=== PATIENT | male | born 1975 | race Caucasian/White ===

== ENCOUNTER 2016-05-24 02:10 | Inpatient (IN) | payer MEDICAID ==
[~2016-05-24] VITALS: Ht 167.6 cm; Wt 55.9 kg
[2016-05-24] VITALS (9 sets, daily range): BP systolic 90–117; BP diastolic 50–76; PULSE 80–110; RESP 16–21; TEMP 96.3–98.7; O2SAT 92–98
--- NOTE | 2016-05-24 02:41 | PD ---
HPI Chief Complaint: Back/ Neck Pain or Injury Time Seen by Provider: 02:20 Travel History International Travel<30 days: No Contact w/Intl Traveler<30days: No History of Present Illness HPI Patient is a 41-year-old male who was transferred from [facility] for neurosurgical evaluation by Dr. Pickard. Patient presented to the emergency room with complaints of several weeks of cough, congestion and shortness of breath with fevers, patient had a full workup which included a CT of his chest. Patient was transferred from [facility] for admission to [facility] for treatment of pulmonary abscess, epidural abscess, vertebral osteomyelitis. Accepting doctor was Dr. Pickard An abbreviated report of CT chest showed right lower lobe pulmonary mass with central necrosis likely representing developing abscess. It also showed disc osteomyelitis centered at T5 and T6 with complete obliteration of the T5 vertebral body and with interval increase in the paravertebral collection which now contains multiple foci of gas in keeping with paravertebral abscess from a gas-forming organism. There is extension of the paravertebral abscess/disc osteomyelitis into the epidural space at the T5 to T6 level with moderate mass effect. Please see radiology report for full report. PFSH Past Medical History Arthritis: No Asthma: No Autoimmune Disease: No Blood Disorders: No Anxiety: No Depression: No Heart Rhythm Problems: Yes (SINUS TACHYCARDIA AT TIMES) Cancer: No Cardiovascular Problems: Yes High Cholesterol: No Chemotherapy: No Chest Pain: No Congestive Heart Failure: Yes COPD: No Cerebrovascular Accident: No Diabetes: No Diminished Hearing: No Endocrine: No GERD: No Glaucoma: No Genitourinary: Yes Headaches: No Hepatitis: Yes (HEP C) Hiatal Hernia: No Hypertension: No Immune Disorder: No Implanted Vascular Access Dvce: Yes Kidney Stones: No Musculoskeletal: Yes (T4-T10 ) Neurologic: Yes (NEUROPATHY) Psychiatric: No Reproductive: No Respiratory: No Immunizations Current: Yes Migraines: No Myocardial Infarction: No Radiation Therapy: No Renal Failure: No Seizures: No Sickle Cell Disease: No Sleep Apnea: No Thyroid Disease: No Ulcer: No Past Surgical History Abdominal Surgery: No AICD: No Arteriovenous Shunt: No Body Medical Devices: BACK HARDWARE Cardiac Surgery: No Ear Surgery: No Endocrine Surgery: No Eye Surgery: No Genitourinary Surgery: No Gynecologic Surgery: No Insulin Pump: No Joint Replacement: Yes (VERTEBRAL REPAIR) Neurologic Surgery: Yes (BACK FUSIONS, BLE WEAKNESS, NEUROPATHY) Oral Surgery: No Pacemaker: No Thoracic Surgery: Yes Social History Alcohol Use: No (PT DENIES) Tobacco Use: Yes (1PPD) 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 HALFWAY MAR STATES NO KNOWN ALLERGIES PATIENT DENIES ALLERGY TO ASPIRIN. 04/01/13 Reported Meds & Prescriptions Reported Meds & Active Scripts Active No Active Prescriptions or Reported Medications Review of Systems General / Constitutional: Positive: Fever, Chills Eyes: No: Visual changes HENT: No: Headaches Cardiovascular: No: Chest Pain or Discomfort Respiratory: Positive: Cough, No: Shortness of Breath Gastrointestinal: No: Abdominal Pain Genitourinary: No: Dysuria Musculoskeletal: Positive: Pain Skin: No Rash Neurologic: No: Weakness Psychiatric: No: Depression Endocrine: No: Polydipsia Hematologic/Lymphatic: No: Easy Bruising Physical Exam Narrative GENERAL: moderate distress HEAD: Atraumatic. Normocephalic. EYES: Pupils equal and round. No scleral icterus. No injection or drainage. ENT: No nasal bleeding or discharge. Mucous membranes pink and moist. NECK: Trachea midline. No JVD. CARDIOVASCULAR: Tachycardic. No murmur appreciated. RESPIRATORY: No accessory muscle use. Clear to auscultation. Breath sounds equal bilaterally. GASTROINTESTINAL: Abdomen soft, non-tender, nondistended. Hepatic and splenic margins not palpable. MUSCULOSKELETAL: No obvious deformities. No clubbing. No cyanosis. No edema. NEUROLOGICAL: Awake and alert PSYCHIATRIC: Appropriate mood and affect; insight and judgment normal. [facility] Medical Decision Making Medical Screen Exam Complete: Yes Emergency Medical Condition: Yes Differential Diagnosis Epidural abscess, vertebral osteomyelitis, pneumonia versus pulmonary abscess, hyponatremia Narrative Course 41-year-old male who was transferred to [facility] for admission to [facility] for treatment of pulmonary abscess versus pneumonia, epidural abscess and vertebral osteomyelitis. Patient was given 1 g or Rocephin as well as 1 g of vancomycin at [facility]. Dr Pickard with neurosurgery accepted patient to [facility]. I reviewed antibiotics as well as CT reports with him. Dr. Pickard accepts patient to his service. He does not request further antibiotics at this time Please see patient's records from his ER visit at [facility] for full lab work and CT reports performed today Physician Communication Physician Communication case reviewed with dr pickard who accepts pt to service Diagnosis Primary Impression: Osteomyelitis Qualified Code: M86.18 - Other acute osteomyelitis, other site Additional Impressions: Epidural abscess Pulmonary abscess Hyponatremia Admitting Information Admitting Physician Requests: Admit Scripts No Active Prescriptions or Reported Meds Dorota Thomas DO May 24, 2016 02:41
[2016-05-24] MEDS ORDERED: NALOXONE HCL 0.4 MG/ML AMP IV PRN (04:30)
[2016-05-24] MEDS ORDERED: MORPHINE SULFATE 4 MG/ML INJ IV PRN (04:30)
[2016-05-24] MEDS ORDERED: ACETAMINOPHEN/HYDROcodone 325 MG/5 MG TAB PO PRN (04:30)
[2016-05-24] MEDS: HYDROmorphone HCL PF 1 MG/ML VIAL IV PRN ×5 (04:46→22:26)
[2016-05-24] MEDS ORDERED: VANCOMYCIN INJ 1,000 MG in SODIUM CHLOR 0.9% 250 ML INJ 250 ML IV SCH (05:00)
[2016-05-24 05:59] LABS: AUTOMATED NEUTROPHIL # 7.6 TH/MM3 (1.8-7.7); BASOPHIL % 0.2 % (0.0-2.0); EOSINOPHIL % 0.1 % (0.0-4.0); HEMATOCRIT 29.4 % (39.0-51.0); LYMPH % 13.6 % (9.0-44.0); LYMPHOCYTE # 1.3 TH/MM3 (1.0-4.8); MEAN CELL VOLUME 65.6 FL (80.0-100.0); MEAN CORPUSCULAR HEMOGLOBIN 21.8 PG (27.0-34.0); MEAN CORPUSCULAR HGB CONC 33.2 % (32.0-36.0); MONO % 3.1 % (0.0-8.0); PLATELET COUNT 212 TH/MM3 (150-450); RED BLOOD COUNT 4.48 MIL/MM3 (4.50-5.90); RED CELL DISTRIBUTION WIDTH 18.8 % (11.6-17.2); WHITE BLOOD COUNT 9.2 TH/MM3 (4.0-11.0)
[2016-05-24 06:03] LABS: APTT (PATIENT) 27.9 SEC (24.3-30.1); INTERNATIONAL NORMALIZED RATIO 1.1 RATIO; PROTHROMBIN TIME - PATIENT 11.7 SEC (9.8-11.6)
[2016-05-24 06:11] LABS: BICARBONATE 29.3 MEQ/L (21.0-32.0); POTASSIUM 3.6 MEQ/L (3.5-5.1)
[2016-05-24 06:13] LABS: HEMO FLAGS AUTO DIFF
[2016-05-24 07:40] LABS: KERATOCYTES OCC (NORMAL); PLATELET ESTIMATE SMEAR NORMAL (NORMAL); PLATELET MORPHOLOGY NORMAL (NORMAL); SCAN/DIFF AUTO DIFF CONFIRMED
[2016-05-24] MEDS: oxyCODONE/ACETAMINOPHEN 10 MG/325 MG TAB PO PRN ×3 (08:59→19:33)
[2016-05-24] MEDS ORDERED: DIAZEPAM 5 MG TAB PO ONE (09:45)
[2016-05-24] MEDS ORDERED: IOHEXOL 350 MG/ML 10 ML VIAL (for RAD DIAG) IV ONE (10:29)
--- NOTE | 2016-05-24 10:55 | RADRPT ---
EXAM DATE/TIME: 05/24/2016 10:21 [facility] COMPARISON: MRI THORACIC SPINE W & W/O CONTRAST, December 16, 2013, 9:28. CHEST SINGLE AP, February 01, 2016, 18 :12. INDICATIONS : Dyspnea, epidural abscess and possible pulmonary abscess IV CONTRAST: 60 cc Omnipaque 350 (iohexol) IV RADIATION DOSE: 3.35 CTDIvol (mGy) MEDICAL HISTORY : Cardiovascular disease. Hepatitis C. SURGICAL HISTORY : back hardware ENCOUNTER: Initial ACUITY: 1 day PAIN SCALE: 4/10 LOCATION: chest TECHNIQUE: Volumetric scanning of the chest was performed. Using automated exposure control and adjustment of t he mA and/or kV according to patient size, radiation dose was kept as low as reasonably achievable to obtain optimal diagnostic quality images. FINDINGS: LUNGS: There is focal air space consolidation in the medial aspect of the right lower lobe abutting the righ t inferior pulmonary vein. There is an area of low density centrally within the consolidation. Atelec tasis is present at both lung bases. There is trace left pleural fluid. In the right upper lobe there is a 10 mm nodule. No pneumothorax is present. PLEURA: There is trace left pleural fluid. MEDIASTINUM: The heart and great vessels demonstrate no acute abnormality. In the posterior mediastinum in a para spinal location there is abnormal low density collection containing air highly suspicious for an infe cted fluid collection or abscess. It extends from approximately T3 inferior to T8. This abnormality i s both on the left and right sides of the spine and abuts the esophagus. AXILLAE: Within normal limits. No lymphadenopathy. SKELETAL: Patient is post laminectomy in the mid thoracic spine and there is accentuated thoracic kyphosis seco ndary to a chronic compression deformity. MISCELLANEOUS: There is abnormal appearance of the kidneys bilaterally with retained linear areas of contrast materi al. Possible retroperitoneal lymphadenopathy is present in the upper abdomen. CONCLUSION: 1. Abnormal bilateral paraspinal fluid collection extending from approximately T3-T8. The appearance is highly suggestive of a paraspinal abscess. 2. Focal air space consolidation in the medial right lower lobe abutting the paraspinal process. This likely represents focal lung infection with possible central necrosis. 3. Abnormal appearance of the kidneys suggesting interstitial nephritis or ATN. 4. Partially visualized upper abdomen suggests retroperitoneal lymphadenopathy. Roshan Galvez MD on May 24, 2016 at 10:39 Board Certified Radiologist. This report was verified electronically.
--- NOTE | 2016-05-24 12:35 | RADRPT ---
EXAM DATE/TIME: 05/24/2016 10:40 [facility] COMPARISON: MRI THORACIC SPINE W & W/O CONTRAST, December 16, 2013, 9:28. INDICATIONS : Pain. Hx of osteomyelitis. CONTRAST: 12 cc Omniscan (gadodiamide) IV MEDICAL HISTORY : Osteomyelitis. SURGICAL HISTORY : Fusion, lumbar. ENCOUNTER: Subsequent ACUITY: 3 day PAIN SCORE: 4/10 LOCATION: back TECHNIQUE: Multiplanar multisequence MRI of the thoracic spine was performed. FINDINGS: VERTEBRA: There is chronic anterior compression deformity of T8 with partial fusion with the T9 vertebral body. There is kyphotic hyper angulation centered at this level. There is abnormal decreased T1 signal wit hin the T5 vertebral body and posterior elements. There is abnormal T2 signal at the T4-T5 and T5-T6 interspace with performed enhancement. There has been prior laminectomy performed at T3-T4 through T8 -T9. ALIGNMENT: There is no anterolisthesis or retrolisthesis. There is kyphotic hyper angulation centered at the T8 level. CORD: No signal abnormality is identified within the spinal cord. POST CONTRAST: There is abnormal enhancement along the T5 endplates and there is peripherally enhancing fluidlike ma terial in the posterior mediastinum and in a paraspinal location extending from approximately T3 thro ugh T8-T9. There is a normal peripheral enhancing fluid collection located posteriorly on the left at C5-C6. There is also abnormal connection with the right paraspinal fluid connect into the right lowe r lobe consolidation. T1-T2: No disc herniation, canal stenosis, or neural foraminal stenosis. T2-T3: No disc herniation, canal stenosis, or neural foraminal stenosis. T3-T4: No canal stenosis is visualized. There has been prior laminectomy at this level. Paraspinal fluid col lection is present. T4-T5: There is no canal stenosis. T5-T6: There is no canal stenosis. T6-T7: There is no canal stenosis. T7-T8: There is no canal stenosis. T8-T9: There is no canal stenosis. T9-T10: There is no canal stenosis. T10-T11: There is no canal stenosis. T11-T12: There is no canal stenosis. T12-L1: There is no canal stenosis. There is right lower lobe airspace consolidation along with small bilateral pleural effusions. The ri ght lower lobe consolidation connects with the right paraspinal fluid collection. There is mild spinal canal stenosis at C3-C4 through C5-C6 secondary to degenerative disc disease. CONCLUSION: 1. There is extensive bilateral paraspinal abscess extending from approximately T3-T9. The abnormalit y appears to be centered at the T5 level where there is vertebral body height loss and fluid and enha ncement in the adjacent disc spaces suggesting discitis osteomyelitis. A portion of the abnormal flui d collection extends posteriorly on the left at C5-C6. 2. The right lower lobe airspace consolidation has a connection with the adjacent right paraspinal ab scess. 3. No spinal canal stenosis is identified. There is mild epidural enhancement in the anterior epidura l space at T5-T7 but no epidural abscess is appreciated. Roshan Galvez MD on May 24, 2016 at 12:18 Board Certified Radiologist. This report was verified electronically.
[2016-05-24] MEDS ORDERED: GADODIAMIDE PF 287 MG/ML 5 ML VIAL (for RAD MRI) IV ONE (12:41)
--- NOTE | 2016-05-24 12:48 | RADRPT ---
EXAM DATE/TIME: 05/24/2016 10:40 [facility] COMPARISON: MRI LUMBAR SPINE W & W/O CONTRAST, May 11, 2011, 14:34. INDICATIONS : Pain. CONTRAST: 12 cc Omniscan (gadodiamide) IV MEDICAL HISTORY : Osteomyelitis. SURGICAL HISTORY : Fusion, lumbar. ENCOUNTER: Subsequent ACUITY: 3 day PAIN SCORE: 4/10 LOCATION: Back TECHNIQUE: Multiplanar multisequence MRI of the lumbar spine was performed with and without contrast. FINDINGS: Since the comparison exam, there has been complete disintegration of the L3-4 intervertebral disc and significant collapse of the L3 and 4 vertebra. The process appears to be quite quiescent at this poi nt with only very mild edema signal and enhancement associated with the sub-endplate regions of the p osterior aspect of L3 and L4. There is no evidence of fluid signal in the disc space or epidural spac e and no signs of significant abnormal epidural enhancement. There is mild asymmetrically left-sided dorsal retropulsion or osteophytic spurring producing mild indentation of the left lateral recess reg ion without significant overall canal compromise. Neural foramina appear satisfactory. Elsewhere, there are mild nonacute Schmorl node type endplate defects involving superior endplate of T12, superior and inferior endplates of L1. There is slight annular disc bulge with minimal superimpo sed broad dorsal protrusion at L2-3 without significant canal or foraminal compromise. The conus is n ormal in position and appearance. There is mild multilevel posterior facet arthropathy. CONCLUSION: Significant change from prior exam. No definite acute findings. See above discussion. Roshan Jain MD on May 24, 2016 at 12:38 Board Certified Radiologist. This report was verified electronically.
--- NOTE | 2016-05-24 12:58 | PD.CONS ---
History of Present Illness Service Infectious disease Consult Requested By Dr Pickard Reason for Consult Evaluate patient for sepsis Primary Care Physician Bienvenido Menjivar Diagnoses: History of Present Illness Patient seen and examined. Records reviewed. Patient is a 41-year-old male admitted to the hospital as a transfer from [facility]. Patient apparently has been sick in the last 3 weeks. He was having shortness of breath, and was congested and coughing. He was initially bringing up some clear phlegm, but over the last 4-5 days, the phlegm started changing in color and it's now becoming brownish. He had a couple days of fever in the beginning but that improved and he took some nonsteroidal agents. Patient also started experiencing worsening back pain. He has chronic back pain in the thoracic area as a result of previous infection. However the pain has been getting worse over the last 2-3 weeks. He was also coughing a lot that at times she would gag and have some vomiting. He has had some chest discomfort due to the severe coughing episodes. Patient percent to [facility] and evaluation included a CT of the chest. It showed a right lower lobe pulmonary mass with a central necrosis, possibly representing an abscess. There is also evidence of disc osteomyelitis at T5-T6 with a paravertebral collection. The paravertebral fluid collection extends into the epidural space at T5-T6 with moderate mass effect. He has been transferred to [facility] for neurosurgical evaluation. Since transfer, he has not been febrile. His WBC is normal. Patient just had CT of the chest and MRI of the thoracic and lumbar spine done. Infectious disease consultation has been requested to evaluate the patient. Review of Systems Constitutional: DENIES: Fever, Chills Eyes: DENIES: Eye pain Ears, nose, mouth, throat: DENIES: Nasal discharge, Oral lesions, Throat pain, Ear Pain, Running Nose, Sinus Pain, Toothache Respiratory: COMPLAINS OF: Cough, Sputum production, Shortness of breath, DENIES: Hemoptysis Cardiovascular: COMPLAINS OF: Chest pain, DENIES: Palpitations, Syncope Gastrointestinal: COMPLAINS OF: Nausea, Vomiting, DENIES: Abdominal pain, Diarrhea, Difficulty Swallowing Genitourinary: DENIES: Urgency, Hematuria, Dysuria Musculoskeletal: COMPLAINS OF: Back pain, DENIES: Joint pain, Joint Swelling Integumentary: DENIES: Rash Hematologic/lymphatic: DENIES: Lymphadenopathy Neurologic: DENIES: Headache, Localized weakness Psychiatric: DENIES: Anxiety, Hallucinations Past Family Social History Allergies: Coded Allergies: Aspirin (Verified Allergy, Severe, 09/23/13) PATIENT STATES HE HAD A HOLE IN HIS HEART WHEN HE WAS BORN AND HE WAS TOLD NOT TO TAKE ASPIRIN. GROUP HOME MAR STATES NO KNOWN ALLERGIES PATIENT DENIES ALLERGY TO ASPIRIN. 04/01/13 Past Medical History Osteomyelitis of the spine in 2011 due to MSSA Osteomyelitis of the thoracic spine in 2013 treated, culture had MSSA, had removal of the hardware at that time Episode of M abscesses and Pseudomonas sepsis felt to be due to PICC line infection back in 2013 Episode of back abscess again in January 2016, treated at [facility] had drainage, and a long course of IV antibiotics Known IV drug use Past Surgical History History of laminectomy with fusion of the thoracic spine 2011 History of decompressive laminectomy discectomy and T3 T6 fusion with autograft in March 2013 Removal of thoracic hardware and evacuation of a deep thoracic wound abscess in September 2013 Active Ordered Medications [place] Dilaudid Morphine Percocet Vancomycin IV Social History Patient smokes about 5-6 cigarettes per day Denies alcohol abuse Patient has had problem with IV drug use, he claims the last use was 6 months ago Lives alone at home Physical Exam Vital Signs Vital Signs Date Time Temp Pulse Resp B/P Pulse Ox O2 Delivery O2 Flow Rate FiO2 05/24/16 07:16 96.8 87 21 93/60 92 05/24/16 06:43 97.2 92 16 117/75 93 05/24/16 06:00 96 16 106/74 99 05/24/16 04:00 89 16 113/76 96 Room Air 05/24/16 02:15 98.7 110 16 110/69 97 Physical Exam GENERAL: This is a thin, well-developed male, awake and alert, not toxic appearing, not in respiratory distress SKIN: Warm and dry. No generalized rash or ecchymosis. No embolic lesions noted. He has a few track loomis in both upper extremities. HEAD: Atraumatic. Normocephalic. No temporal or scalp tenderness. EYES: Crisman conjunctivae, no petechia or hemorrhage. Pupils equal round and reactive. Extraocular motions intact. No scleral icterus. No injection or drainage. ENT: Nose without bleeding, or purulent drainage. Moist oral mucosa. Throat without erythema, or exudate. Uvula midline. Airway patent. NECK: Trachea midline. No JVD or lymphadenopathy. Supple, nontender, no meningeal signs. CARDIOVASCULAR: Regular rate and rhythm without murmurs, gallops, or rubs. No murmur. RESPIRATORY: Clear to auscultation. Breath sounds equal bilaterally. He has few scattered rhonchi. Decreased at the bases. GASTROINTESTINAL: Abdomen soft, mildly tender, mildly distended. No guarding or rebound. Bowel sounds are present and normoactive. No organomegaly. MUSCULOSKELETAL: Extremities without clubbing, cyanosis, or edema. No joint tenderness, effusion. No calf tenderness. NEUROLOGICAL: Awake and alert. Cranial nerves II through XII intact. Motor and sensory grossly within normal limits. Five out of 5 muscle strength in all muscle groups. Normal speech. PSYCH: Normal affect, calm and cooperative. BACK: Healed incision in his upper back, no swelling or redness noted, but tender on palpation LINE: PIV with no evidence of infection Laboratory Laboratory Tests Test 05/24/16 04:48 White Blood Count 9.2 Red Blood Count 4.48 Hemoglobin 9.8 Hematocrit 29.4 Mean Corpuscular Volume 65.6 Mean Corpuscular Hemoglobin 21.8 Mean Corpuscular Hemoglobin 33.2 Concent Red Cell Distribution Width 18.8 Platelet Count 212 Mean Platelet Volume 8.9 Neutrophils (%) (Auto) 83.0 Lymphocytes (%) (Auto) 13.6 Monocytes (%) (Auto) 3.1 Eosinophils (%) (Auto) 0.1 Basophils (%) (Auto) 0.2 Neutrophils # (Auto) 7.6 Lymphocytes # (Auto) 1.3 Monocytes # (Auto) 0.3 Eosinophils # (Auto) 0.0 Basophils # (Auto) 0.0 CBC Comment AUTO DIFF Differential Comment AUTO DIFF CONFIRMED Platelet Estimate NORMAL Platelet Morphology Comment NORMAL Keratocytes OCC Prothrombin Time 11.7 Prothromb Time International 1.1 Ratio Activated Partial 27.9 Thromboplast Time Sodium Level 133 Potassium Level 3.6 Chloride Level 95 Carbon Dioxide Level 29.3 Anion Gap 9 Blood Urea Nitrogen 16 Creatinine 0.78 Estimat Glomerular Filtration 109 Rate Random Glucose 206 Calcium Level 8.3 Result Diagram: 05/24/16 0448 05/24/16 0448 Imaging RADIOLOGY STUDIES/FILMS REVIEWED Chest CT 05/24/16 0000 Signed Impressions: Service Date/Time: Tuesday, May 24, 2016 10:21 - CONCLUSION: 1. Abnormal bilateral paraspinal fluid collection extending from approximately T3-T8. The appearance is highly suggestive of a paraspinal abscess. 2. Focal air space consolidation in the medial right lower lobe abutting the paraspinal process. This likely represents focal lung infection with possible central necrosis. 3. Abnormal appearance of the kidneys suggesting interstitial nephritis or ATN. 4. Partially visualized upper abdomen suggests retroperitoneal lymphadenopathy. Roshan Galvez MD Assessment and Plan Assessment and Plan IMPRESSION Paraspinal abscess/epidural abscess extending in thoracic cavity Pneumonia, abscess, ?primarily lung or extension from spine Previous Rx for osteo thoracic, removal of toracic hardware last 2013, with MSSA Previous Rx MSSA osteo of spine 2011 Known IVDU RECOMMENDATION 2 BC UA and C/S Sputum G/S C/S Legio and pneumo Ag ESR and CRP LFT D/W Dr Pickard Hold off Abx since patient not septic appearing and neuro dias stable - as per D /W Dr pickard Get records from [facility] - admission last Jan 2016 - Feb 2016 Patient will need surgery Follow C/S Monitor progress I will follow along with you Thank you for this consultation Discussed Condition With D/W Dr Pickard Explained plan to patient Genie Wadsworth MD May 24, 2016 12:58
[2016-05-24] MEDS ORDERED: GLUCAGON 1 MG/ML VIAL OTHER PRN (14:15)
[2016-05-24] MEDS ORDERED: DEXTROSE 50% IN WATER 50 ML VIAL(D50) IV PUSH PRN (14:15)
--- NOTE | 2016-05-24 14:25 | PD.CONS ---
HPI Service [facility] Consult Requested By Dr. Pickard Reason for Consult Medical management Primary Care Physician Bienvenido Menjivar Diagnoses: History of Present Illness The patient is a 41-year-old male with a past medical history of IV drug abuse, osteomyelitis, back abscess and pulmonary abscess who is presenting to the hospital as a transfer for multiple infections. The patient says that about 3 months ago he was admitted to [facility] where he received treatment for collapsed lungs including chest tubes and a back abscess requiring drainage. He said he completed one and a half months of IV antibiotics in the hospital and one and a half months of IV antibiotics post hospitalization. Per the patient he was supposed to be on 3 months of oral antibiotics but was not discharged on that. He says 3 weeks ago he came down with a cough and phlegm production. He said the phlegm was clear. He was not too worried about it. He denied any fevers. About 4-5 days ago he said the sputum turned a milky brown in color. Back concerned him. He has been having fevers up to 102. He has been feeling cold at night. He has been having a lot of pain from coughing so much. He went to [facility] yesterday and was sent here for further treatment. He states that he was an IV drug user and quit 6 months ago. His drug of choice was Dilaudid. He says at this time his cough is improved. Review of Systems Except as stated in HPI: all other systems reviewed are Neg Past Family Social History Allergies: Coded Allergies: Aspirin (Verified Allergy, Severe, 09/23/13) PATIENT STATES HE HAD A HOLE IN HIS HEART WHEN HE WAS BORN AND HE WAS TOLD NOT TO TAKE ASPIRIN. [facility] STATES NO KNOWN ALLERGIES PATIENT DENIES ALLERGY TO ASPIRIN. 04/01/13 Past Medical History Osteomyelitis of the spine in 2011 due to MSSA Osteomyelitis of the thoracic spine in 2013 treated, culture had MSSA, had removal of the hardware at that time Episode of back abscess in January 2016 Lung collapse s/p chest tubes HTN Question of diabetes Past Surgical History History of laminectomy with fusion of the thoracic spine 2011 History of decompressive laminectomy discectomy and T3 T6 fusion with autograft in March 2013 Removal of thoracic hardware and evacuation of a deep thoracic wound abscess in September 2013 Active Ordered Medications Current Medications Medications (Trade) Dose Ordered Sig/Rony Route Start Time Stop Time Status Last Admin (Osmond 5-325 Mg) 1 tab Q4H PRN PO 05/24/16 04:30 (Percocet 10-325 Mg) 1 tab Q6H PRN PO 05/24/16 04:30 05/24/16 13:08 (Dilaudid Pf Inj) 1 mg Q3H PRN IV 05/24/16 04:30 05/24/16 10:14 (Morphine Inj) 4 mg Q3H PRN IV 05/24/16 04:30 (Narcan Inj) 0.4 mg UNSCH PRN IV 05/24/16 04:30 (Oramorph Sr) 15 mg Q12HR PO 05/24/16 21:00 (D50w (Vial) Inj) 25 ml UNSCH PRN IV PUSH 05/24/16 14:15 (Glucagon Inj) 1 mg UNSCH PRN OTHER 05/24/16 14:15 Family History The pt's father of a heart attack at the age of 42. Social History The pt used to inject IV Dilaudid, it has been six months since his last use. He quit drinking 10 years ago. He smokes 5 cigarettes a day. He says he is living at a friend's house. Physical Exam Vital Signs Vital Signs Date Time Temp Pulse Resp B/P Pulse Ox O2 Delivery O2 Flow Rate FiO2 05/24/16 11:20 96.3 92 21 112/74 98 05/24/16 07:16 96.8 87 21 93/60 92 05/24/16 06:43 97.2 92 16 117/75 93 05/24/16 06:00 96 16 106/74 99 05/24/16 04:00 89 16 113/76 96 Room Air 05/24/16 02:15 98.7 110 16 110/69 97 Physical Exam GENERAL: No apparent distress, resting comfortably. HEAD: Atraumatic. Normocephalic. EYES: Pupils equal and round. No scleral icterus. No injection or drainage. ENT: No nasal bleeding or discharge. Mucous membranes pink and moist. NECK: Trachea midline. No JVD. CARDIOVASCULAR: Tachycardic. No murmur appreciated. RESPIRATORY: No accessory muscle use. Clear to auscultation. Breath sounds equal bilaterally. GASTROINTESTINAL: Abdomen soft, non-tender, nondistended. Hepatic and splenic margins not palpable. MUSCULOSKELETAL: No obvious deformities. No clubbing. No cyanosis. No edema. BACK: Tender to palpation of upper back. NEUROLOGICAL: Awake and alert. No gross deficits. PSYCHIATRIC: Appropriate mood and affect; insight and judgment normal. Laboratory Laboratory Tests Test 05/24/16 04:48 White Blood Count 9.2 Red Blood Count 4.48 Hemoglobin 9.8 Hematocrit 29.4 Mean Corpuscular Volume 65.6 Mean Corpuscular Hemoglobin 21.8 Mean Corpuscular Hemoglobin 33.2 Concent Red Cell Distribution Width 18.8 Platelet Count 212 Mean Platelet Volume 8.9 Neutrophils (%) (Auto) 83.0 Lymphocytes (%) (Auto) 13.6 Monocytes (%) (Auto) 3.1 Eosinophils (%) (Auto) 0.1 Basophils (%) (Auto) 0.2 Neutrophils # (Auto) 7.6 Lymphocytes # (Auto) 1.3 Monocytes # (Auto) 0.3 Eosinophils # (Auto) 0.0 Basophils # (Auto) 0.0 CBC Comment AUTO DIFF Differential Comment AUTO DIFF CONFIRMED Platelet Estimate NORMAL Platelet Morphology Comment NORMAL Keratocytes OCC Prothrombin Time 11.7 Prothromb Time International 1.1 Ratio Activated Partial 27.9 Thromboplast Time Sodium Level 133 Potassium Level 3.6 Chloride Level 95 Carbon Dioxide Level 29.3 Anion Gap 9 Blood Urea Nitrogen 16 Creatinine 0.78 Estimat Glomerular Filtration 109 Rate Random Glucose 206 Calcium Level 8.3 Date/Time Procedure Status Source Growth 05/24/16 13:30 Gram Stain Received Sputum Expectorated Sputum Pending 05/24/16 13:30 Sputum Culture Received Sputum Expectorated Sputum Pending Result Diagram: 05/24/16 0448 05/24/16 0448 Imaging Last Impressions Thoracic Spine MRI 05/24/16 0000 Signed Impressions: Service Date/Time: Tuesday, May 24, 2016 10:40 - CONCLUSION: 1. There is extensive bilateral paraspinal abscess extending from approximately T3-T9. The abnormality appears to be centered at the T5 level where there is vertebral body height loss and fluid and enhancement in the adjacent disc spaces suggesting discitis osteomyelitis. A portion of the abnormal fluid collection extends posteriorly on the left at C5-C6. 2. The right lower lobe airspace consolidation has a connection with the adjacent right paraspinal abscess. 3. No spinal canal stenosis is identified. There is mild epidural enhancement in the anterior epidural space at T5-T7 but no epidural abscess is appreciated. Roshan Galvez MD Lumbar Spine MRI 05/24/16 0000 Signed Impressions: Service Date/Time: Tuesday, May 24, 2016 10:40 - CONCLUSION: Significant change from prior exam. No definite acute findings. See above discussion. Roshan Jain MD Chest CT 05/24/16 0000 Signed Impressions: Service Date/Time: Tuesday, May 24, 2016 10:21 - CONCLUSION: 1. Abnormal bilateral paraspinal fluid collection extending from approximately T3-T8. The appearance is highly suggestive of a paraspinal abscess. 2. Focal air space consolidation in the medial right lower lobe abutting the paraspinal process. This likely represents focal lung infection with possible central necrosis. 3. Abnormal appearance of the kidneys suggesting interstitial nephritis or ATN. 4. Partially visualized upper abdomen suggests retroperitoneal lymphadenopathy. Roshan Galvez MD Assessment and Plan Assessment and Plan Multiple infections/ Sepsis Thoracic spine MRI shows: There is extensive bilateral paraspinal abscess extending from approximately T3-T9; The abnormality appears to be centered at the T5 level where there is vertebral body height loss and fluid and enhancement in the adjacent disc spaces suggesting discitis osteomyelitis; A portion of the abnormal fluid collection extends posteriorly on the left at C5- C6; The right lower lobe airspace consolidation has a connection with the adjacent right paraspinal abscess. Lumbar spine MRI: Significant change from prior exam; No definite acute findings. Chest CT: Abnormal bilateral paraspinal fluid collection extending from approximately T3-T8; The appearance is highly suggestive of a paraspinal abscess; Focal air space consolidation in the medial right lower lobe abutting the paraspinal process; This likely represents focal lung infection with possible central necrosis. - further management per neurosurgery. - antibiotics per ID. - follow culture data. - pain control as needed with a bowel regimen. - physical therapy. - incentive spirometry. Anemia Likely s/t sepsis. - follow CBC. - treat underlying infections. - check iron studies, B12, folate and Hemoccult. Hyperglycemia Blood sugar was elevated on admission. - Accu-Cheks with insulin sliding scale. - Check a hemoglobin A1c. IV drug abuse Last used 6 months ago. - Cessation instruction. Nicotine dependence The patient smokes 5 cigarettes daily. - Cessation instruction given. PPx: Per neurosurgery. Discussed Condition With Pt. Bryan Spaulding DO May 24, 2016 14:25
[2016-05-24] MEDS: INSULIN ASPART SUPPLEMENTAL SCALE SQ SCH ×2 (16:00→20:52)
[2016-05-24 16:16] LABS: HEMOGLOBIN A1a 1.2 %; HEMOGLOBIN A1b 1.6 %; HEMOGLOBIN Ao 84.8 %; HEMOGLOBIN LA1C 2.8 %; HEMOGLOBIN P3 3.9 %
[2016-05-24 17:07] LABS: FERRITIN 193 NG/ML (26-388); TRANSFERRIN IRON PROFILE 171 MG/DL (200-360)
[2016-05-24 17:23] LABS: BLOOD, URINE SMALL (NEG); COMMENT (UR) CULT NOT INDICATED; CULTURE IF INDICATED CULT NOT INDICATED; GLUCOSE,URINE NEG (NEG); KETONE, URINE NEG (NEG); NITRITE,URINE NEG (NEG); PH, URINE 6.5 (5.0-8.5); URINE COLOR YELLOW (YELLW/STRAW)
[2016-05-24 17:44] LABS: AMPHETAMINE, URINE NEG (NEG); BARBITURATES, URINE NEG (NEG); COCAINE, URINE NEG (NEG)
[2016-05-24] MEDS: ALBUTEROL SULFATE 90 MCG/ACT HFA 18 GM INHALER INH PRN (17:46)
[2016-05-24] MEDS: RESP: ALBUTEROL 2.5 MG/IPRATROPIUM 0.5 MG NEB (SCH) NEB ×2 (17:53→19:24)
[2016-05-24 18:13] LABS: INDIRECT BILIRUBIN 0.2 MG/DL (0.0-0.8); TOTAL BILIRUBIN ADULT 0.3 MG/DL (0.2-1.0)
--- NOTE | 2016-05-24 20:38 | HHI.HP ---
HPI Service Neurosurgery Primary Care Physician Bienvenido Menjivar Chief Complaint: Thoracic pain History of Present Illness 41-year-old male with previous history of thoracic discitis-osteomyelitis approximately 1-1/2-2 years ago. He states that he was doing relatively well for several months after his previous infection. Approximately 3 months ago he developed increasing chest pain and states that he was admitted to [facility] for approximately 6 weeks with drainage of infection in the chest. He underwent approximately 6 weeks of inpatient IV antibiotics and then was transferred to detention facility with an additional 6 weeks of IV antibiotics. He states that he was supposed to be discharged from the nursing facility on oral antibiotics, but did not receive them. His thoracic region and chest pain seemed to initially improve after his course of IV antibiotics. However approximately 2-3 weeks ago he developed a productive cough with first clear and more recently in the past week yellow sputum. He is experienced occasional sweats without definite fever. He is also developed increasing chest pain for approximately 2 weeks with shortness of breath. The pain has been much more prominent in the thoracic spine region in the past week. He complains of approximately 10 pounds weight loss in the past 2 weeks with decreased appetite. No nausea or vomiting. He has experienced occasional bladder incontinence. The patient does have a history of previous IV drug abuse. He states that he last used IV drugs approximately 6 months ago. Review of Systems Constitutional: COMPLAINS OF: Fatigue, Weight loss, Night Sweats, DENIES: Fever, Chills Endocrine: DENIES: Polyuria Eyes: DENIES: Blurred vision, Diplopia Ears, nose, mouth, throat: COMPLAINS OF: Throat pain, DENIES: Tinnitus, Hearing loss, Nasal discharge, Ear Pain, Sinus Pain Respiratory: COMPLAINS OF: Cough, Sputum production, Shortness of breath Cardiovascular: COMPLAINS OF: Chest pain, DENIES: Palpitations, Claudication Gastrointestinal: DENIES: Abdominal pain, Diarrhea, Nausea, Vomiting Genitourinary: COMPLAINS OF: Urinary incontinence Musculoskeletal: COMPLAINS OF: Joint pain, Muscle aches, Back pain, DENIES: Neck pain Hematologic/lymphatic: COMPLAINS OF: Bruising Immunologic/allergic: COMPLAINS OF: Urticaria Neurologic: DENIES: Abnormal gait, Headache, Localized weakness, Speech Problems, Poor Balance Psychiatric: DENIES: Anxiety, Confusion Past Family Social History Allergies: Coded Allergies: Aspirin (Verified Allergy, Severe, 09/23/13) PATIENT STATES HE HAD A HOLE IN HIS HEART WHEN HE WAS BORN AND HE WAS TOLD NOT TO TAKE ASPIRIN. [facility] STATES NO KNOWN ALLERGIES PATIENT DENIES ALLERGY TO ASPIRIN. 04/01/13 Past Medical History Previous history of thoracic discitis-osteomyelitis More recent history of pulmonary infection treated at [facility] Denies cardiac, gastrointestinal disease, diabetes, hypertension Past Surgical History Drainage pulmonary abscess at [facility] approximately 4 months ago Reported Medications Reported Meds & Active Scripts Active No Active Prescriptions or Reported Medications Family History His father from myocardial infarction at age 4242 years old Social History Previous history of IV drug abuse Smokes cigarettes occasional No significant alcohol use Lives alone Physical Exam Vital Signs Vital Signs Date Time Temp Pulse Resp B/P Pulse Ox O2 Delivery O2 Flow Rate FiO2 05/24/16 15:32 97 Nasal Cannula 2.00 05/24/16 15:15 96.6 80 21 90/50 95 05/24/16 11:20 96.3 92 21 112/74 98 05/24/16 07:16 96.8 87 21 93/60 92 05/24/16 06:43 97.2 92 16 117/75 93 05/24/16 06:00 96 16 106/74 99 05/24/16 04:00 89 16 113/76 96 Room Air 05/24/16 02:15 98.7 110 16 110/69 97 Physical Exam Gen.: Somewhat thin-appearing white male in no apparent distress Respirations: Significant pulmonary congestion-Jennifer, mild wheezing Cardiac: Tachycardia. Normal rhythm. No murmur. No carotid bruit Abdomen: Soft and nontender. Positive bowel sounds. Nondistended Musculoskeletal: No significant edema, cyanosis. No long bone or joint deformity. Significant tenderness midthoracic midline and paraspinous musculature to palpation Skin: No significant skin lesion or rash HEENT: No discharge external auditory canals. No facial edema or ecchymosis. Sclerae are clear and nonicteric. Oropharynx clear. Poor dentition Head: No scalp contusion, tenderness Neurologic: Awake and alert Oriented X 3 Speech is clear Conversant and appropriate Follow simple commands well Answers questions appropriately Reasonable judgment and insight Recent and remote memory are intact No evidence of anxiety or depression Pupils are equal and reactive to accommodation. Extra-ocular movements, visual brown to confrontation, facial sensorimotor, tongue, palate, sternocleidomastoid testing, hearing to finger rub testing, and bilateral shoulder shrug are all intact. Sensation is intact to light touch in all extremities Strength normal major flexion and extension groups all extremities Taylor's absent bilaterally No ankle clonus Plantar responses absent bilateral Fine motor movements intact upper extremities Laboratory Laboratory Tests Test 05/24/16 05/24/16 05/24/16 04:48 16:50 17:02 White Blood Count 9.2 Red Blood Count 4.48 Hemoglobin 9.8 Hematocrit 29.4 Mean Corpuscular Volume 65.6 Mean Corpuscular Hemoglobin 21.8 Mean Corpuscular Hemoglobin 33.2 Concent Red Cell Distribution Width 18.8 Platelet Count 212 Mean Platelet Volume 8.9 Neutrophils (%) (Auto) 83.0 Lymphocytes (%) (Auto) 13.6 Monocytes (%) (Auto) 3.1 Eosinophils (%) (Auto) 0.1 Basophils (%) (Auto) 0.2 Neutrophils # (Auto) 7.6 Lymphocytes # (Auto) 1.3 Monocytes # (Auto) 0.3 Eosinophils # (Auto) 0.0 Basophils # (Auto) 0.0 CBC Comment AUTO DIFF Differential Comment AUTO DIFF CONFIRMED Platelet Estimate NORMAL Platelet Morphology Comment NORMAL Keratocytes OCC Prothrombin Time 11.7 Prothromb Time International 1.1 Ratio Activated Partial 27.9 Thromboplast Time Sodium Level 133 Potassium Level 3.6 Chloride Level 95 Carbon Dioxide Level 29.3 Anion Gap 9 Blood Urea Nitrogen 16 Creatinine 0.78 Estimat Glomerular Filtration 109 Rate Random Glucose 206 Hemoglobin A1c 5.3 Calcium Level 8.3 Iron Level 42 Total Iron Binding Capacity 239 Percent Iron Saturation 17.5 Ferritin 193 Vitamin B12 Level 1028 Folate 7.8 Urine Color YELLOW Urine Turbidity CLEAR Urine pH 6.5 Urine Specific [place] GREATER THAN 1.035 Urine Protein 30 Urine Glucose (UA) NEG Urine Ketones NEG Urine Occult Blood SMALL Urine Nitrite NEG Urine Bilirubin NEG Urine Urobilinogen 2.0 Urine Leukocyte Esterase NEG Urine RBC 3 Urine WBC 4 Microscopic Urinalysis Comment CULT NOT INDICATED Urine Opiates Screen POS Urine Barbiturates Screen NEG Urine Amphetamines Screen NEG Urine Benzodiazepines Screen POS Urine Cocaine Screen NEG Urine Cannabinoids Screen POS Erythrocyte Sedimentation Rate 65 Total Bilirubin 0.3 Direct Bilirubin 0.1 Indirect Bilirubin 0.2 Aspartate Amino Transf 17 (AST/SGOT) Alanine Aminotransferase 18 (ALT/SGPT) Alkaline Phosphatase 177 C-Reactive Protein 13.50 Total Protein 6.2 Albumin 1.7 Date/Time Procedure Status Source Growth 05/24/16 17:03 Aerobic Blood Culture Received Blood Peripheral Pending 05/24/16 17:03 Anaerobic Blood Culture Received Blood Peripheral Pending 05/24/16 16:50 Legionella Antigen - Final Complete Urine Clean Catch PRESUMPTIVE NEGATIVE FOR LEGIONELLA P... 05/24/16 16:50 Streptococcus pneumoniae Antigen (M - Final Complete Urine Clean Catch PRESUMPTIVE NEGATIVE FOR STREPTOCOCCU... 05/24/16 13:30 Gram Stain - Final Resulted Sputum Expectorated Sputum 05/24/16 13:30 Sputum Culture Resulted Sputum Expectorated Sputum Pending Result Diagram: 05/24/16 0448 05/24/16 0448 Imaging 05/24/2016 MRI thoracic spine images reviewed. Agree with findings as noted below: Thoracic Spine MRI 05/24/16 0000 Signed Impressions: Service Date/Time: Tuesday, May 24, 2016 10:40 - CONCLUSION: 1. There is extensive bilateral paraspinal abscess extending from approximately T3-T9. The abnormality appears to be centered at the T5 level where there is vertebral body height loss and fluid and enhancement in the adjacent disc spaces suggesting discitis osteomyelitis. A portion of the abnormal fluid collection extends posteriorly on the left at C5-C6. 2. The right lower lobe airspace consolidation has a connection with the adjacent right paraspinal abscess. 3. No spinal canal stenosis is identified. There is mild epidural enhancement in the anterior epidural space at T5-T7 but no epidural abscess is appreciated. Roshan Galvez MD Lumbar Spine MRI 05/24/16 0000 Signed Impressions: Service Date/Time: Tuesday, May 24, 2016 10:40 - CONCLUSION: Significant change from prior exam. No definite acute findings. See above discussion. Roshan Jain MD Chest CT 05/24/16 0000 Signed Impressions: Service Date/Time: Tuesday, May 24, 2016 10:21 - CONCLUSION: 1. Abnormal bilateral paraspinal fluid collection extending from approximately T3-T8. The appearance is highly suggestive of a paraspinal abscess. 2. Focal air space consolidation in the medial right lower lobe abutting the paraspinal process. This likely represents focal lung infection with possible central necrosis. 3. Abnormal appearance of the kidneys suggesting interstitial nephritis or ATN. 4. Partially visualized upper abdomen suggests retroperitoneal lymphadenopathy. Roshan Galvez MD Assessment and Plan Assessment and Plan Impression: 1. Thoracic paraspinal abscess primarily T3-T9 levels 2. Thoracic osteomyelitis primarily T5 level the significant bone destruction 3. Remote lower thoracic osteomyelitis 4. Remote lumbar osteomyelitis, discitis 5. History of IV substance abuse Plan: Findings were discussed at length with the patient. Discussed with infectious disease Discussed with thoracic surgery Recommended to patient that he proceed with surgical intervention for evacuation of thoracic paraspinal abscess. The procedure, risks, possible complications fully discussed. We will initially attempt to maintain support in an external brace. He is at risk for further erosion and collapse of the affected thoracic vertebral bodies, primarily T5. Activity precautions explained to the patient. He will likely eventually need further surgery for mid thoracic reconstruction and fusion pending initial further treatment with antibiotics. Jeffry Pickard MD May 24, 2016 20:38
[2016-05-24] MEDS: MORPHINE SULFATE 15 MG CONTROLLED RELEASE TAB PO SCH (20:51)
[2016-05-25] VITALS: BP 125/75; PULSE 97; RESP 18; TEMP 97; O2SAT 96
[2016-05-25] MEDS: oxyCODONE/ACETAMINOPHEN 10 MG/325 MG TAB PO PRN ×3 (02:43→23:21)
[2016-05-25] MEDS: HYDROmorphone HCL PF 1 MG/ML VIAL IV PRN ×5 (02:44→16:45)
[2016-05-25 06:20] VITALS: BP 117/77; PULSE 80; RESP 19; TEMP 97; O2SAT 95
[2016-05-25] MEDS: INSULIN ASPART SUPPLEMENTAL SCALE SQ SCH ×4 (06:24→22:45)
[2016-05-25] MEDS: RESP: ALBUTEROL 2.5 MG/IPRATROPIUM 0.5 MG NEB (SCH) NEB ×3 (07:29→21:10)
[2016-05-25 07:59] LABS: MEAN CELL VOLUME 66.3 FL (80.0-100.0); MEAN CORPUSCULAR HEMOGLOBIN 21.6 PG (27.0-34.0); MEAN CORPUSCULAR HGB CONC 32.5 % (32.0-36.0); PLATELET COUNT 257 TH/MM3 (150-450); RED BLOOD COUNT 4.52 MIL/MM3 (4.50-5.90); RED CELL DISTRIBUTION WIDTH 19.6 % (11.6-17.2); WHITE BLOOD COUNT 9.5 TH/MM3 (4.0-11.0)
[2016-05-25 08:07] LABS: REVIEW FLAG FINAL
[2016-05-25] MEDS: MORPHINE SULFATE 15 MG CONTROLLED RELEASE TAB PO SCH (08:20)
[2016-05-25 08:29] LABS: BICARBONATE 29.8 MEQ/L (21.0-32.0); MAGNESIUM 1.8 MG/DL (1.5-2.5); POTASSIUM 3.2 MEQ/L (3.5-5.1)
--- NOTE | 2016-05-25 11:53 | HHI.NSPN ---
(Darrion Garcia) Note Status Status: Progress Note (Darrion Garcia) Interval History Diagnosis 1. Thoracic paraspinal abscess primarily T3-T9 levels 2. Thoracic osteomyelitis primarily T5 level the significant bone destruction Interval History The patient has done well since admission. He is ambulating independently with a wheeled walker. He was evaluated by Infectious Disease yesterday and bass cultured. Thoracic Surgery also evaluated him due to the thoracic paraspinal abscess. The plan is to take him to the OR for evacuation of the abscess and tailor antibiotic therapy to the culture of the drainage. When seen the patient stated he was doing good and didn't have any pain. He also denied any numbness, tingling, pain or weakness to the extremities. His only complaint was being hungry since he is NPO for surgery. The patient is now on contact precautions and after he was seen Nursing reported a positive blood culture with Gram positive cocci. As this note was being completed his sputum was positive for Staph aureus. (Darrion Garcia) Labs, Micro, & Vital Signs Results Vital Signs, 24 Hour Date Time Temp Pulse Resp B/P Pulse Ox O2 Delivery O2 Flow Rate FiO2 05/25/16 12:00 96.7 97 18 123/76 92 05/25/16 07:29 Nasal Cannula 2.00 05/25/16 06:20 97.0 80 19 117/77 95 05/25/16 03:42 16 05/25/16 03:42 16 05/25/16 00:00 97.0 97 18 125/75 96 05/24/16 22:03 16 05/24/16 20:30 97.2 95 16 98/60 95 05/24/16 15:32 97 Nasal Cannula 2.00 05/24/16 15:15 96.6 80 21 90/50 95 Allergies Coded Allergies Aspirin (Verified Allergy, Severe, 09/23/13) PATIENT STATES HE HAD A HOLE IN HIS HEART WHEN HE WAS BORN AND HE WAS TOLD NOT TO TAKE ASPIRIN. [facility] MAR STATES NO KNOWN ALLERGIES PATIENT DENIES ALLERGY TO ASPIRIN. 04/01/13 Intake/Outtake 05/25/16 05/25/16 11:00 23:00 Intake Total 400 ml Output Total 600 ml Balance -200 ml Laboratory Tests per Bonnie Test 05/25/16 07:21 White Blood Count 9.5 TH/MM3 Red Blood Count 4.52 MIL/MM3 Sodium Level 139 MEQ/L Potassium Level 3.2 MEQ/L Blood Urea Nitrogen 13 MG/DL Active Scripts Active No Active Prescriptions or Reported Medications Microbiology 05/24/16 Gram Stain - Final, Resulted 05/24/16 Sputum Culture - Preliminary, Resulted Staphylococcus Aureus 05/24/16 Legionella Antigen - Final, Complete PRESUMPTIVE NEGATIVE FOR LEGIONELLA P... 05/24/16 Streptococcus pneumoniae Antigen (M - Final, Complete PRESUMPTIVE NEGATIVE FOR STREPTOCOCCU... 05/24/16 Aerobic Blood Culture - Preliminary, Resulted NO GROWTH IN 1 DAY 05/24/16 Anaerobic Blood Culture - Preliminary, Resulted NO GROWTH IN 1 DAY 05/24/16 Aerobic Blood Culture - Preliminary, Resulted Gram Positive Cocci 05/24/16 Anaerobic Blood Culture - Preliminary, Resulted NO GROWTH IN 1 DAY Date Time Temp Pulse Resp B/P Pulse Ox O2 Delivery O2 Flow Rate FiO2 05/25/16 07:29 Nasal Cannula 2.00 05/25/16 06:20 97.0 80 19 117/77 95 05/25/16 03:42 16 05/25/16 03:42 16 05/25/16 00:00 97.0 97 18 125/75 96 05/24/16 22:03 16 05/24/16 20:30 97.2 95 16 98/60 95 05/24/16 15:32 97 Nasal Cannula 2.00 05/24/16 15:15 96.6 80 21 90/50 95 05/25/16 07:00 Intake Total 2400 ml Output Total 600 ml Balance 1800 ml Constitutional Vital Signs Date Time Temp Pulse Resp B/P Pulse Ox O2 Delivery O2 Flow Rate FiO2 05/25/16 07:29 Nasal Cannula 2.00 05/25/16 06:20 97.0 80 19 117/77 95 05/25/16 03:42 16 05/25/16 03:42 16 05/25/16 00:00 97.0 97 18 125/75 96 05/24/16 22:03 16 05/24/16 20:30 97.2 95 16 98/60 95 05/24/16 15:32 97 Nasal Cannula 2.00 05/24/16 15:15 96.6 80 21 90/50 95 05/25/16 07:00 Intake Total 2400 ml Output Total 600 ml Balance 1800 ml (Darrion Garcia) Review of Systems/Exam ROS Neuro: Denies any headache, dizziness, numbness, tingling or weakness. Respiratory: Denies any shortness of breath. CV: Denies any chest pain or racing heart. GI: Denies any abdominal pain, nausea, vomiting or bowel incontinence. : Denies any bladder incontinence. Back: Back "feels okay right now." Exam Respiratory: Minimally coarse bilaterally with slight wheeze, equal excursion, non-laboured, non-productive cough, on room air. CV: Regular rate & rhythm w/o murmur, gallop or rub, no pedal edema. GI: Abdomen soft, non-tender, positive bowel sounds. Back: Mildly tender to palpation to the T4-T7 region. Extremities: Multiple healing cuts to the digits of both hands that are mildly tender to palpation otherwise extremities are non-tender. Moves all extremities without difficulty. Neuro: Awake, alert & oriented x3. Speech clear & appropriate. Follows commands. Sensation intact to light touch all extremities. Motor strength 5/5 to all extremities. No Gamboa's response. No ankle clonus. (Darrion Garcia) Medications Current Medications Current Medications Medications (Trade) Dose Ordered Sig/Rony Route Start Time Stop Time Status Last Admin (Ashford 5-325 Mg) 1 tab Q4H PRN PO 05/24/16 04:30 (Percocet 10-325 Mg) 1 tab Q6H PRN PO 05/24/16 04:30 05/25/16 08:36 (Dilaudid Pf Inj) 1 mg Q3H PRN IV 05/24/16 04:30 05/25/16 11:22 (Morphine Inj) 4 mg Q3H PRN IV 05/24/16 04:30 (Narcan Inj) 0.4 mg UNSCH PRN IV 05/24/16 04:30 (Oramorph Sr) 15 mg Q12HR PO 05/24/16 21:00 05/25/16 08:20 (D50w (Vial) Inj) 25 ml UNSCH PRN IV PUSH 4/12/17 14:15 (Glucagon Inj) 1 mg UNSCH PRN OTHER 05/24/16 14:15 (Ventolin Hfa Inh) 2 puff Q4H PRN INH 05/24/16 16:00 05/24/16 17:46 (Darrion Garcia) Medical Decision Making MDM Remarks Impression: 1. Thoracic paraspinal abscess primarily T3-T9 levels 2. Thoracic osteomyelitis primarily T5 level the significant bone destruction 3. Positive blood culture x1 for Gram positive cocci 4. Sputum with Staph aureus 5. Remote lower thoracic osteomyelitis 6. Remote lumbar osteomyelitis, discitis 7. History of IV substance abuse (Darrion Garcia) Plan Plan Remarks Plan of care discussed with patient. Scheduled to go to the OR this afternoon for evacuation of his thoracic paraspinal abscess. Keep NPO. Brace when OOB. Antibiotics per Infectious Disease. Will most likely need mid thoracic spine reconstruction & fusion surgery following completion of antibiotics. (Darrion Garcia) Attending Statement I have personally seen and examined the patient on the date of this note. Pertinent documentation and study results have been reviewed by the undersigned. I have personally developed the treatment plan and performed medical decision making. Agree with findings, exam, and treatment plan as noted above. (Jeffry Pickard MD) Darrion Garcia May 25, 2016 11:53 Jeffry Pickard MD May 31, 2016 21:02
[2016-05-25 12:00] VITALS: BP 123/76; PULSE 97; RESP 18; TEMP 96.7; O2SAT 92
--- NOTE | 2016-05-25 12:24 | EC ---
Study Study Date:05/25/2016 STUDY CONCLUSIONS SUMMARY - Left ventricle: The cavity size was normal. Wall thickness was normal. Systolic function was normal. The estimated ejection fraction was in the range of 55% to 60%. Wall motion was normal; there were no regional wall motion abnormalities. - Aortic valve: Valve area: 1.7cm^2 (Vmax). - Pulmonic valve: Peak gradient: 11mm Hg (S). If LV function is below 40, please consider prescribing an ACEI or ARB or document rationale for non-use. PROCEDURE DATA STUDY STATUS: Elective. Procedure: Transthoracic echocardiography. Image quality was good. Scanning was performed from the parasternal, apical, and subcostal acoustic windows. Study completion: The patient tolerated the procedure well. Transthoracic echocardiography. M-mode, complete 2D, complete spectral Doppler, and color Doppler. Height: Height: 66in. Weight: Weight: 137.7lb. Body mass index: BMI: 22.3kg/m^2. Body surface area: BSA: 1.71m^2. Patient status: Inpatient. CARDIAC ANATOMY LEFT VENTRICLE: The cavity size was normal. Wall thickness was normal. Systolic function was normal. The estimated ejection fraction was in the range of 55% to 60%. Wall motion was normal; there were no regional wall motion abnormalities. AORTIC VALVE: Trileaflet; normal thickness leaflets. Doppler: Transvalvular velocity was within the normal range. There was no stenosis. No regurgitation. Valve area: 1.7cm^2 (Vmax). Indexed valve area: 0.99cm^2/m^2 (Vmax). Peak gradient: 12mm Hg (S). AORTA: Aortic root: The aortic root was normal in size. MITRAL VALVE: Structurally normal valve. Doppler: Transvalvular velocity was within the normal range. There was no evidence for stenosis. No regurgitation. Valve area by pressure half-time: 3.06cm^2. Indexed valve area by pressure half-time: 1.79cm^2/m^2. Peak gradient: 3mm Hg (D). LEFT ATRIUM: The atrium was normal in size. RIGHT VENTRICLE: The cavity size was normal. Wall thickness was normal. PULMONIC VALVE: Doppler: Transvalvular velocity was within the normal range. There was no evidence for stenosis. No regurgitation. Peak gradient: 11mm Hg (S). TRICUSPID VALVE: Structurally normal valve. Doppler: Transvalvular velocity was within the normal range. Trace regurgitation. Peak gradient: 31mm Hg (D). PULMONARY ARTERY: The main pulmonary artery was normal-sized. Systolic pressure was within the normal range. RIGHT ATRIUM: The atrium was normal in size. PERICARDIUM: There was no pericardial effusion. SYSTEMIC VEINS: Inferior vena cava: The vessel was normal in size. Patient weight: 137.7lb _Ejection fraction:_ 65-75% _Fractional shortening:_ 32% up to 5Kg 5-11.5Kg 11.6-22.9Kg 23-45Kg 45-57Kg Aortic Root 7-13 <17 13-22 17-27 17-27 LA diam 6-13 <23 24-38 33-47 37-40 RVID 10-17 7-15 7-15 7-18 8-17 LVIDd 12-22 <32 24-38 33-47 37-40 LVPW 2-4 3-6 5-7 6-8 7-8 IVS 2-4 3-6 5-7 6-8 7-8 BASIC MEASUREMENTS ADULT NORMAL Left ventricle LV internal dimension, ED, chordal 46.9 mm 43-52 level, PLAX LV internal dimension, ES, chordal 31.7 mm 23-38 level, PLAX Fractional shortening, chordal level, 32 % >29 PLAX LV posterior wall thickness, ED 9.56 mm IVS/LVPW ratio, ED 1.08 <1.3 Ventricular septum Septal thickness, ED 10.3 mm Aortic valve Leaflet separation 26 mm 15-26 Left atrium Anterior-posterior dimension 29 mm Anterior-posterior dimension index 1.7 cm/m^2 <2.2 Right ventricle RV internal dimension, ED, PLAX 22.2 mm 19-38 BASIC MEASUREMENTS ADULT NORMAL Aortic valve Leaflet separation 26 mm 15-26 Aorta Root diameter, ED *38 mm 20-37 DOPPLER MEASUREMENTS ADULT NORMAL Main pulmonary artery Pressure, S 25 mm Hg =30 Aortic valve Peak velocity, S 170 cm/s Peak gradient, S 12 mm Hg Valve area, Vmax 1.7 cm^2 Valve area index, Vmax 0.99 cm^2/m^2 Mitral valve Peak E-wave velocity 90.3 cm/s Peak A-wave velocity 76.5 cm/s Pressure half-time 72 ms Peak gradient, D 3 mm Hg Peak E/A ratio 1.2 Valve area, pressure half-time 3.06 cm^2 Valve area index, pressure half-time 1.79 cm^2/m^2 Tricuspid valve Peak gradient, D 31 mm Hg Maximal inflow velocity 278 cm/s Regurgitant peak velocity 257 cm/s Peak RV-RA gradient, S 26 mm Hg Systemic veins Estimated CVP 10 mm Hg Right ventricle RV pressure, S *36 mm Hg <30 Pulmonic valve Peak velocity, S 166 cm/s Peak gradient, S 11 mm Hg LEGEND: Mean values are shown as u=mean value. Asterisk (*) loomis values outside specified normal range. Prepared and signed by Huseyin Herrera [id number]
[2016-05-25] MEDS ORDERED: GELFOAM SIZE 100 ONE (12:41)
[2016-05-25] MEDS ORDERED: THROMBIN (TOPICAL) 5,000 UNIT VIAL ONE (12:41)
[2016-05-25] MEDS ORDERED: GENTAMICIN SULFATE 80 MG/2 ML VIAL ONE (12:41)
[2016-05-25] MEDS ORDERED: LIDOCAINE 1%/EPINEPHrine 1:100,000 SOLN 20 ML VIAL ONE (12:41)
[2016-05-25] MEDS ORDERED: fentaNYL CITRATE 250 MCG/5 ML AMP ONE ×2 (12:47→18:07)
[2016-05-25] MEDS ORDERED: MIDAZOLAM HCL 2 MG/2 ML VIAL ONE (12:47)
[2016-05-25] MEDS ORDERED: ACETAMINOPHEN 1000 MG/100 ML VIAL IV ONE (12:47)
[2016-05-25] MEDS ORDERED: ARTIFICIAL TEARS OPTH OINT 3.5 APPLIC/3.5 GM TUBO ONE (12:47)
[2016-05-25] MEDS ORDERED: LACTATED RINGER'S 1000 ML INJ 3,000 ML IV ONE (13:34)
[2016-05-25] MEDS ORDERED: ONDANSETRON HCL 4 MG/2 ML VIAL IV PUSH ONE (13:34)
[2016-05-25] MEDS ORDERED: PHENYLEPH/NS 1000 MCG/10 ML SYR IV ONE (13:34)
[2016-05-25] MEDS ORDERED: PROPOFOL 200 MG/20 ML AMP IV ONE (13:34)
[2016-05-25] MEDS ORDERED: HYDROmorphone HCL PF 2 MG/ML VIAL ONE ×2 (14:31→18:07)
--- NOTE | 2016-05-25 16:59 | HHI.IDPN ---
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 Recently treated at [facility] for ?lung abscess and recurrent spinal abscess. Now with epidural abscess same area and possibly extending into lung. To OR this afternoon BC now with GPC Sputum C/S with Staph aureus He is afebrile ESR 65 CRP 13 Antibiotics None Got several doses IV Vancomycin previous day Lines PIV Past Medical History Reviewed Allergies: Coded Allergies: Aspirin (Verified Allergy, Severe, 09/23/13) PATIENT STATES HE HAD A HOLE IN HIS HEART WHEN HE WAS BORN AND HE WAS TOLD NOT TO TAKE ASPIRIN. [facility] MAR STATES NO KNOWN ALLERGIES PATIENT DENIES ALLERGY TO ASPIRIN. 04/01/13 Objective . Vital Signs Date Time Temp Pulse Resp B/P Pulse Ox O2 Delivery O2 Flow Rate FiO2 05/25/16 12:00 96.7 97 18 123/76 92 05/25/16 11:52 19 05/25/16 09:37 18 05/25/16 09:37 18 05/25/16 07:29 Nasal Cannula 2.00 05/25/16 06:20 97.0 80 19 117/77 95 05/25/16 00:00 97.0 97 18 125/75 96 05/24/16 20:30 97.2 95 16 98/60 95 05/24/16 05/24/16 05/25/16 15:00 23:00 07:00 Intake Total 2000 ml 400 ml Output Total 0 ml 600 ml Balance 2000 ml -200 ml Intake Oral 2000 ml 400 ml Output Urine Total 0 ml 600 ml # Bowel Movements 0 0 . Laboratory Tests Test 05/24/16 05/24/16 05/25/16 04:48 17:02 07:21 White Blood Count 9.2 TH/MM3 9.5 TH/MM3 Red Blood Count 4.48 MIL/MM3 4.52 MIL/MM3 Hemoglobin 9.8 GM/DL 9.7 GM/DL Hematocrit 29.4 % 30.0 % Mean Corpuscular Volume 65.6 FL 66.3 FL Mean Corpuscular Hemoglobin 21.8 PG 21.6 PG Mean Corpuscular Hemoglobin 33.2 % 32.5 % Concent Red Cell Distribution Width 18.8 % 19.6 % Platelet Count 212 TH/MM3 257 TH/MM3 Mean Platelet Volume 8.9 FL 8.4 FL Neutrophils (%) (Auto) 83.0 % Lymphocytes (%) (Auto) 13.6 % Monocytes (%) (Auto) 3.1 % Eosinophils (%) (Auto) 0.1 % Basophils (%) (Auto) 0.2 % Neutrophils # (Auto) 7.6 TH/MM3 Lymphocytes # (Auto) 1.3 TH/MM3 Monocytes # (Auto) 0.3 TH/MM3 Eosinophils # (Auto) 0.0 TH/MM3 Basophils # (Auto) 0.0 TH/MM3 CBC Comment AUTO DIFF Differential Comment AUTO DIFF CONFIRMED Platelet Estimate NORMAL Platelet Morphology Comment NORMAL Keratocytes OCC Erythrocyte Sedimentation Rate 65 mm/hr Laboratory Tests Test 05/24/16 05/24/16 05/25/16 04:48 17:02 07:21 Sodium Level 133 MEQ/L 139 MEQ/L Potassium Level 3.6 MEQ/L 3.2 MEQ/L Chloride Level 95 MEQ/L 102 MEQ/L Carbon Dioxide Level 29.3 MEQ/L 29.8 MEQ/L Anion Gap 9 MEQ/L 7 MEQ/L Blood Urea Nitrogen 16 MG/DL 13 MG/DL Creatinine 0.78 MG/DL 0.68 MG/DL Estimat Glomerular Filtration 109 ML/MIN 127 ML/MIN Rate Random Glucose 206 MG/DL 91 MG/DL Hemoglobin A1c 5.3 % Calcium Level 8.3 MG/DL 8.2 MG/DL Iron Level 42 MCG/DL Total Iron Binding Capacity 239 MCG/DL Percent Iron Saturation 17.5 % Ferritin 193 NG/ML Vitamin B12 Level 1028 PG/ML Folate 7.8 NG/ML Total Bilirubin 0.3 MG/DL Direct Bilirubin 0.1 MG/DL Indirect Bilirubin 0.2 MG/DL Aspartate Amino Transf 17 U/L (AST/SGOT) Alanine Aminotransferase 18 U/L (ALT/SGPT) Alkaline Phosphatase 177 U/L C-Reactive Protein 13.50 MG/DL Total Protein 6.2 GM/DL Albumin 1.7 GM/DL Magnesium Level 1.8 MG/DL Microbiology Date/Time Procedure Status Source Growth 05/24/16 13:30 Gram Stain - Final Resulted Sputum Expectorated Sputum 05/24/16 13:30 Sputum Culture - Preliminary Resulted Staphylococcus Aureus 05/24/16 16:50 Legionella Antigen - Final Complete Urine Clean Catch PRESUMPTIVE NEGATIVE FOR LEGIONELLA P... 05/24/16 16:50 Streptococcus pneumoniae Antigen (M - Final Complete Urine Clean Catch PRESUMPTIVE NEGATIVE FOR STREPTOCOCCU... 05/24/16 16:55 Aerobic Blood Culture - Preliminary Resulted Blood Peripheral Gram Positive Cocci 05/24/16 16:55 Anaerobic Blood Culture - Preliminary Resulted Blood Peripheral NO GROWTH IN 1 DAY 05/24/16 17:03 Aerobic Blood Culture - Preliminary Resulted Blood Peripheral Staphylococcus Aureus 05/24/16 17:03 Anaerobic Blood Culture - Preliminary Resulted Gram Positive Cocci Imaging Thoracic Spine MRI 05/24/16 0000 Signed Impressions: Service Date/Time: Tuesday, May 24, 2016 10:40 - CONCLUSION: 1. There is extensive bilateral paraspinal abscess extending from approximately T3-T9. The abnormality appears to be centered at the T5 level where there is vertebral body height loss and fluid and enhancement in the adjacent disc spaces suggesting discitis osteomyelitis. A portion of the abnormal fluid collection extends posteriorly on the left at C5-C6. 2. The right lower lobe airspace consolidation has a connection with the adjacent right paraspinal abscess. 3. No spinal canal stenosis is identified. There is mild epidural enhancement in the anterior epidural space at T5-T7 but no epidural abscess is appreciated. Roshan Galvez MD Lumbar Spine MRI 05/24/16 0000 Signed Impressions: Service Date/Time: Tuesday, May 24, 2016 10:40 - CONCLUSION: Significant change from prior exam. No definite acute findings. See above discussion. Roshan Jain MD Chest CT 05/24/16 0000 Signed Impressions: Service Date/Time: Tuesday, May 24, 2016 10:21 - CONCLUSION: 1. Abnormal bilateral paraspinal fluid collection extending from approximately T3-T8. The appearance is highly suggestive of a paraspinal abscess. 2. Focal air space consolidation in the medial right lower lobe abutting the paraspinal process. This likely represents focal lung infection with possible central necrosis. 3. Abnormal appearance of the kidneys suggesting interstitial nephritis or ATN. 4. Partially visualized upper abdomen suggests retroperitoneal lymphadenopathy. Roshan Galvez MD Assessment & Plan Remarks IMPRESSION Staph aureus sepsis due to spine infection - R/O endocarditis Paraspinal abscess/epidural abscess extending in thoracic cavity Pneumonia, abscess, ?primarily lung or extension from spine Previous Rx for osteo thoracic, removal of toracic hardware last 2013, with MSSA Previous Rx MSSA osteo of spine 2011 Known IVDU RECOMMENDATION Repeat BC to document clearing Follow C/S OR for today Will start IV Vanco and Ancef to cover the GPC in his BC - this is most likely going to be same pathogen in his spine - he has had previous MSSA infection Agree with echo Monitor progress I will follow along with you Genie Wadsworth MD May 25, 2016 16:59
[2016-05-25] MEDS: ceFAZolin 2 GM PREMIX 50 ML IV SCH (17:00)
[2016-05-25] MEDS ORDERED: Vancomycin Consult Pharmacy 1 EA OTHER SCH (17:00)
[2016-05-25] MEDS ORDERED: VANCOMYCIN INJ 1,500 MG in SODIUM CHLORID 0.9% 500 ML INJ 500 ML IV ONE (18:00)
[2016-05-25] MEDS: POTASSIUM CHLOR 20 MEQ PREMIX 100 ML IV SCH ×2 (18:00→20:00)
[2016-05-25 21:44] LABS: HEMATOCRIT 26.8 % (39.0-51.0)
[2016-05-25 21:48] LABS: REVIEW FLAG FINAL
[2016-05-25] MEDS ORDERED: *HYDROmorphone PF 1 MG VIAL PERIprocedural Use ONLY ONE (22:03)
[2016-05-25 22:06] LABS: AUTOMATED NEUTROPHIL # 7.3 TH/MM3 (1.8-7.7); BASOPHIL # 0.1 TH/MM3 (0-0.2); BASOPHIL % 0.6 % (0.0-2.0); EOSINOPHIL # 0.1 TH/MM3 (0-0.4); EOSINOPHIL % 0.6 % (0.0-4.0); HEMATOCRIT 26.9 % (39.0-51.0); LYMPH % 13.9 % (9.0-44.0); LYMPHOCYTE # 1.3 TH/MM3 (1.0-4.8); MEAN CELL VOLUME 64.8 FL (80.0-100.0); MEAN CORPUSCULAR HEMOGLOBIN 21.9 PG (27.0-34.0); MEAN CORPUSCULAR HGB CONC 33.8 % (32.0-36.0); MONO % 7.8 % (0.0-8.0); NEUT % 77.1 % (16.0-70.0); PLATELET COUNT 280 TH/MM3 (150-450); RED BLOOD COUNT 4.15 MIL/MM3 (4.50-5.90); RED CELL DISTRIBUTION WIDTH 18.4 % (11.6-17.2); WHITE BLOOD COUNT 9.5 TH/MM3 (4.0-11.0)
--- NOTE | 2016-05-25 22:06 | PD.OP ---
Operative Report Date of Surgery: May 25, 2016 Preoperative Diagnosis: (1) Paraspinal abscess (2) Epidural abscess (3) Osteomyelitis Thoracic osteomyelitis Thoracic paraspinal and epidural abscess Postoperative Diagnosis: (1) Paraspinal abscess (2) Epidural abscess (3) Osteomyelitis Thoracic osteomyelitis Thoracic paraspinal and epidural abscess Procedure: 1. T4-5 decompressive laminectomy, evacuation epidural abscess and granulation tissue 2. Evacuation thoracic paraspinous abscess Anesthesia: Gen. Surgeon: Jeffry Pickard Crew Foreman(s): Valentin Lares Operation and Findings: Patient was brought into the operating room and general endotracheal anesthesia induced without difficulty Lines were established for anesthesia ELIUD hose and sequential compression devices placed Leads for intraoperative neuro monitoring placed and baseline study obtained The patient was placed in a cervical collar for positioning. He was placed in prone position on the concentric Rolando table with the side bolsters all extremities appropriately padded The neck was kept in neutral position The thoracic region was prepped and draped in a sterile fashion Appropriate timeout procedure was performed without personal present and in agreement Focus of Xylocaine with epinephrine was used for local infiltration of the incision site which was made in the midline upper thoracic region at the T3-5 level and carried sharply down to the midline fascia. As soon as the deep fascia was reached, a copious amount of purulent abscess came forth. This purulent abscess fluid was sent for routine culture. Further exploration revealed several pockets of abscess including the right T6- 7 paraspinous musculature and tissue, with fistulous tracts running along the dura at the left T4-5 level and through the intercostal space at the right T5-6 level. Exploration of these areas with irrigation yielded further copious amounts of purulent abscess. The red rubber catheter was used to irrigate the deep paraspinous abscess cavity in the thorax until clear. At the T4-5 level there was a significant amount of thick granulation tissue surrounding the dura. The 3 mm Kerrison rongeur was used to perform a decompressive semi-laminectomy at T4-T5. The epidural granulation tissue was carefully lifted away from the dura with the family with dissector and further resected. The thecal sac appeared well compressed after this portion of the procedure. The region was further copiously irrigated with gentamicin irrigation at all stages closure. A 7 mm flat fluted drain was left in the epidural space and brought out through incision in the right mid thoracic region and secured to the skin with nylon suture and attached to sterile suction. The closure was performed with 2-0 Vicryl for the deep and superficial fascia, 3 -0 Vicryl subcutaneous closure, and 4-0 Vicryl running subcuticular closure. Dressings sterile Mastisol, Steri-Strips, Primapore dressing was placed The patient was turned back into supine position with the cervical collar in place. He was taken to recovery room in stable condition All counts were correct at the end of the case Estimated blood loss was 50 cc Specimen of the purulent abscess material was sent for routine microbiology studies. Intraoperative monitoring remained stable during the procedure Jeffry Pickard MD May 25, 2016 22:06
[2016-05-25 22:08] LABS: HEMO FLAGS AUTO DIFF
--- NOTE | 2016-05-25 22:10 | RADRPT ---
EXAM DATE/TIME: 05/25/2016 22:46 [facility] COMPARISON: CHEST SINGLE AP, February 01, 2016, 18:12. INDICATIONS : Post operation t4-5 abcess removal. MEDICAL HISTORY : Congestive heart failure. Sinus tachycardia SURGICAL HISTORY : Spinal fusion. ENCOUNTER: Initial ACUITY: 1 day PAIN SCORE: 10/10 LOCATION: Back. FINDINGS: There is mild bilateral basilar atelectasis and central vascular congestion noted. No significant eff usion. No evidence of pneumothorax. Accounting for rotation, the cardiac contours are grossly stable. CONCLUSION: Mild vascular congestion and bibasilar atelectasis. Roshan Jain MD on May 25, 2016 at 22:06 Board Certified Radiologist. This report was verified electronically.
[2016-05-25] MEDS: D5-1/2 NS + KCL 20 MEQ INJ 1,000 ML IV SCH (22:30)
[2016-05-25 22:39] LABS: SCAN/DIFF AUTO DIFF CONFIRMED
[2016-05-25] MEDS: SENNOSIDES 8.6 MG TAB PO SCH (23:19)
[2016-05-25] MEDS: DOCUSATE SODIUM 100 MG CAP PO SCH (23:19)
[2016-05-25 23:30] VITALS: BP 106/69; PULSE 100; RESP 18; TEMP 97.8; O2SAT 98
[2016-05-26] MEDS: MORPHINE SULFATE 15 MG CONTROLLED RELEASE TAB PO SCH ×2 (00:01→07:54)
[2016-05-26] MEDS: ceFAZolin 2 GM PREMIX 50 ML IV SCH ×3 (01:07→17:59)
[2016-05-26] MEDS: HYDROmorphone HCL PF 1 MG/ML VIAL IV PRN ×7 (01:08→21:31)
[2016-05-26] MEDS: VANCOMYCIN 1,000 MG/NS 250 ML IV SCH ×6 (04:11→21:32)
[2016-05-26] MEDS: D5-1/2 NS + KCL 20 MEQ INJ 1,000 ML IV SCH ×2 (04:12→15:12)
[2016-05-26] MEDS: INSULIN ASPART SUPPLEMENTAL SCALE SQ SCH (06:29)
[2016-05-26] MEDS: oxyCODONE/ACETAMINOPHEN 10 MG/325 MG TAB PO PRN ×2 (06:30→12:43)
[2016-05-26 07:29] LABS: AUTOMATED NEUTROPHIL # 5.6 TH/MM3 (1.8-7.7); BASOPHIL % 0.5 % (0.0-2.0); EOSINOPHIL # 0.1 TH/MM3 (0-0.4); EOSINOPHIL % 1.8 % (0.0-4.0); HEMATOCRIT 26.3 % (39.0-51.0); LYMPH % 14.7 % (9.0-44.0); LYMPHOCYTE # 1.1 TH/MM3 (1.0-4.8); MEAN CELL VOLUME 65.1 FL (80.0-100.0); MEAN CORPUSCULAR HEMOGLOBIN 22.2 PG (27.0-34.0); MEAN CORPUSCULAR HGB CONC 34.2 % (32.0-36.0); MONO % 9.9 % (0.0-8.0); NEUT % 73.1 % (16.0-70.0); PLATELET COUNT 271 TH/MM3 (150-450); RED BLOOD COUNT 4.04 MIL/MM3 (4.50-5.90); RED CELL DISTRIBUTION WIDTH 18.9 % (11.6-17.2); WHITE BLOOD COUNT 7.7 TH/MM3 (4.0-11.0)
[2016-05-26 07:31] LABS: HEMO FLAGS AUTO DIFF
[2016-05-26 07:54] LABS: BICARBONATE 32.3 MEQ/L (21.0-32.0); MAGNESIUM 1.6 MG/DL (1.5-2.5); POTASSIUM 3.5 MEQ/L (3.5-5.1)
[2016-05-26] MEDS: DOCUSATE SODIUM 100 MG CAP PO SCH ×2 (07:55→21:32)
[2016-05-26] MEDS: SENNOSIDES 8.6 MG TAB PO SCH (07:55)
[2016-05-26] MEDS: RESP: ALBUTEROL 2.5 MG/IPRATROPIUM 0.5 MG NEB (SCH) NEB ×3 (08:00→20:56)
[2016-05-26] MEDS: SODIUM CHLORIDE 0.9% FLUSH 5 ML FLUSH IVF SCH ×2 (08:06→21:00)
[2016-05-26 08:37] LABS: TOXIC GRANULATION 1+ (NORMAL)
[2016-05-26 08:38] VITALS: BP 122/85; PULSE 101; RESP 18; TEMP 98.4; O2SAT 99
[2016-05-26 08:38] LABS: PLATELET ESTIMATE SMEAR NORMAL (NORMAL); PLATELET MORPHOLOGY NORMAL (NORMAL); SCAN/DIFF AUTO DIFF CONFIRMED
--- NOTE | 2016-05-26 12:19 | HHI.PR ---
Subjective Remarks The pt said he felt sore but otherwise well. He had no acute complaints. He has been eating and sleeping well. Has been having bowel movements. He says his cough is better. Objective Vitals Vital Signs Date Time Temp Pulse Resp B/P Pulse Ox O2 Delivery O2 Flow Rate FiO2 05/26/16 08:54 19 05/26/16 08:54 19 05/26/16 08:38 98.4 101 18 122/85 99 05/26/16 08:15 Nasal Cannula 3.00 05/26/16 07:30 18 05/26/16 04:00 Nasal Cannula 3.00 05/25/16 23:30 97.8 100 18 106/69 98 05/25/16 23:00 Nasal Cannula 3.00 05/25/16 22:45 98.7 103 13 108/68 97 Nasal Cannula 3 05/25/16 22:30 108 14 102/67 96 Nasal Cannula 3 05/25/16 22:00 116 14 104/64 94 Nasal Cannula 3 05/25/16 21:45 98.3 123 13 113/75 92 Aerosol Mask 8 05/25/16 21:30 131 14 93/57 99 Aerosol Mask 8 05/25/16 21:15 135 15 88/60 99 Simple Mask 8 05/25/16 21:10 98.4 133 16 93/62 99 Simple Mask 8 I/O 05/25/16 05/25/16 05/25/16 05/26/16 05/26/16 05/26/16 07:00 15:00 23:00 07:00 15:00 23:00 Intake Total 400 ml 2425 ml 1559 ml Output Total 600 ml 1622 ml 2350 ml 30 ml Balance -200 ml 803 ml -791 ml -30 ml Intake Oral 400 ml 125 ml 850 ml IV Total 709 ml Other 2300 ml Output Urine Total 600 ml 1560 ml 2350 ml Drainage Total 12 ml 30 ml Estimated Blood Loss 50 ml # Bowel Movements 0 0 Result Diagram: 05/26/1606 05/26/16705 Imaging Last Impressions Chest X-Ray 05/25/16 0000 Signed Impressions: Service Date/Time: May 22:46 - CONCLUSION: Mild vascular congestion and bibasilar atelectasis. Roshan Jain MD Thoracic Spine MRI 05/24/16 0000 Signed Impressions: Service Date/Time: Tuesday, May 24, 2016 10:40 - CONCLUSION: 1. There is extensive bilateral paraspinal abscess extending from approximately T3-T9. The abnormality appears to be centered at the T5 level where there is vertebral body height loss and fluid and enhancement in the adjacent disc spaces suggesting discitis osteomyelitis. A portion of the abnormal fluid collection extends posteriorly on the left at C5-C6. 2. The right lower lobe airspace consolidation has a connection with the adjacent right paraspinal abscess. 3. No spinal canal stenosis is identified. There is mild epidural enhancement in the anterior epidural space at T5-T7 but no epidural abscess is appreciated. Roshan Galvez MD Lumbar Spine MRI 05/24/16 0000 Signed Impressions: Service Date/Time: Tuesday, May 24, 2016 10:40 - CONCLUSION: Significant change from prior exam. No definite acute findings. See above discussion. Roshan Jain MD Chest CT 05/24/16 0000 Signed Impressions: Service Date/Time: Tuesday, May 24, 2016 10:21 - CONCLUSION: 1. Abnormal bilateral paraspinal fluid collection extending from approximately T3-T8. The appearance is highly suggestive of a paraspinal abscess. 2. Focal air space consolidation in the medial right lower lobe abutting the paraspinal process. This likely represents focal lung infection with possible central necrosis. 3. Abnormal appearance of the kidneys suggesting interstitial nephritis or ATN. 4. Partially visualized upper abdomen suggests retroperitoneal lymphadenopathy. Roshan Galvez MD Objective Remarks GENERAL: No apparent distress, resting comfortably. HEAD: Atraumatic. Normocephalic. EYES: Pupils equal and round. No scleral icterus. No injection or drainage. ENT: No nasal bleeding or discharge. Mucous membranes pink and moist. NECK: Trachea midline. No JVD. CARDIOVASCULAR: Tachycardic. No murmur appreciated. RESPIRATORY: Bilateral crackles noted. GASTROINTESTINAL: Abdomen soft, non-tender, nondistended. Hepatic and splenic margins not palpable. MUSCULOSKELETAL: No obvious deformities. No clubbing. No cyanosis. No edema. BACK: Tender to palpation of upper back. NEUROLOGICAL: Awake and alert. No gross deficits. PSYCHIATRIC: Appropriate mood and affect; insight and judgment normal. Procedures T4-5 decompressive laminectomy, evacuation epidural abscess and granulation tissue Evacuation thoracic paraspinous abscess Medications and IVs Current Medications Medications (Trade) Dose Ordered Sig/Rony Route Start Time Stop Time Status Last Admin (Saxon 5-325 Mg) 1 tab Q4H PRN PO 05/24/16 04:30 (Percocet 10-325 Mg) 1 tab Q6H PRN PO 05/24/16 04:30 05/26/16 06:30 (Dilaudid Pf Inj) 1 mg Q3H PRN IV 05/24/16 04:30 05/26/16 11:10 (Morphine Inj) 4 mg Q3H PRN IV 05/24/16 04:30 (Narcan Inj) 0.4 mg UNSCH PRN IV 05/24/16 04:30 (D50w (Vial) Inj) 25 ml UNSCH PRN IV PUSH 05/24/16 14:15 (Glucagon Inj) 1 mg UNSCH PRN OTHER 05/24/16 14:15 Albuterol Sulfate 2 puff 2 puff Q4H PRN INH 05/24/16 16:00 05/24/16 17:46 Cefazolin Sodium/ Dextrose 50 ml @ 100 mls/hr Q8H IV 05/25/16 17:00 05/26/16 07:55 Pharmacy Profile Note 0 ml @ 0 mls/hr UNSCH OTHER 05/25/16 17:00 (Vancomycin Inj/ NS 250 ml Inj) 250 ml @ 250 mls/hr Q8H IV 05/26/16 04:00 05/26/16 04:11 Miscellaneous Information SPECIFIC LAB TO BE BRISEYDA... ONCE ONCE .XX 05/26/16 19:45 05/26/16 19:46 (Colace) 100 mg BID PO 05/25/16 21:00 05/26/16 07:55 (Senokot) 17.2 mg DAILY PO 05/25/16 18:00 05/26/16 07:55 (NS Flush) 2 ml UNSCH PRN IVF 05/25/16 21:45 IV Flush 2 ml 2 ml BID IVF 05/26/16 09:00 05/26/16 08:06 (D5-1/2 NS + KCl 20 Meq Inj) 1,000 ml @ 100 mls/hr Q10H IV 05/25/16 21:43 05/25/16 22:30 (Oramorph Sr) 30 mg Q12HR PO 05/26/16 21:00 A/P Assessment and Plan Multiple infections/ Sepsis Thoracic spine MRI shows: There is extensive bilateral paraspinal abscess extending from approximately T3-T9; The abnormality appears to be centered at the T5 level where there is vertebral body height loss and fluid and enhancement in the adjacent disc spaces suggesting discitis osteomyelitis; A portion of the abnormal fluid collection extends posteriorly on the left at C5- C6; The right lower lobe airspace consolidation has a connection with the adjacent right paraspinal abscess. Lumbar spine MRI: Significant change from prior exam; No definite acute findings. Chest CT: Abnormal bilateral paraspinal fluid collection extending from approximately T3-T8; The appearance is highly suggestive of a paraspinal abscess; Focal air space consolidation in the medial right lower lobe abutting the paraspinal process; This likely represents focal lung infection with possible central necrosis. S/p T4-5 decompressive laminectomy, evacuation epidural abscess and granulation tissue; Evacuation thoracic paraspinous abscess 05/26. - wound care, weightbearing and anticoagulation per neurosurgery. - antibiotics per ID. - follow culture data. - pain control as needed with a bowel regimen. - physical therapy. - incentive spirometry. Anemia Likely s/t sepsis. - follow CBC. - treat underlying infections. - check Hemoccult. Hyperglycemia Blood sugar was elevated on admission. Likely a stress reaction. A1c 5.3%. - follow BMP. IV drug abuse Last used 6 months ago. - Cessation instruction. Nicotine dependence The patient smokes 5 cigarettes daily. - Cessation instruction given. PPx: Per neurosurgery. Discharge Planning Per primary. Bryan Spaulding DO May 26, 2016 12:19
[2016-05-26 12:27] VITALS: BP 129/90; PULSE 99; RESP 18; TEMP 97.5; O2SAT 98
[2016-05-26] MEDS ORDERED: MAGNESIUM SULFATE 1 GM PREMIX 100 ML IV ONE (13:00)
--- NOTE | 2016-05-26 14:27 | HHI.IDPN ---
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 Recently treated at [facility] for ?lung abscess and recurrent spinal abscess. Now with epidural abscess same area and possibly extending into lung. Notes reviewed D/W Dr Pickard this morning Had surgery to his spine, has drain in place B with Staph aureus Sputum C/S MSSA OR C/S pending Echo ok He is afebrile ESR 65 CRP 13 Voiding ok Antibiotics Vanco Ancef Lines PIV Past Medical History Reviewed Allergies: Coded Allergies: Aspirin (Verified Allergy, Severe, 09/23/13) PATIENT STATES HE HAD A HOLE IN HIS HEART WHEN HE WAS BORN AND HE WAS TOLD NOT TO TAKE ASPIRIN. RETIREMENT MAR STATES NO KNOWN ALLERGIES PATIENT DENIES ALLERGY TO ASPIRIN. 04/01/13 Objective . Vital Signs Date Time Temp Pulse Resp B/P Pulse Ox O2 Delivery O2 Flow Rate FiO2 05/26/16 12:27 97.5 99 18 129/90 98 05/26/16 08:54 19 05/26/16 08:54 19 05/26/16 08:38 98.4 101 18 122/85 99 05/26/16 08:15 Nasal Cannula 3.00 05/26/16 07:30 18 05/26/16 04:00 Nasal Cannula 3.00 05/25/16 23:30 97.8 100 18 106/69 98 05/25/16 23:00 Nasal Cannula 3.00 05/25/16 22:45 98.7 103 13 108/68 97 Nasal Cannula 3 05/25/16 22:30 108 14 102/67 96 Nasal Cannula 3 05/25/16 22:00 116 14 104/64 94 Nasal Cannula 3 05/25/16 21:45 98.3 123 13 113/75 92 Aerosol Mask 8 05/25/16 21:30 131 14 93/57 99 Aerosol Mask 8 05/25/16 21:15 135 15 88/60 99 Simple Mask 8 05/25/16 21:10 98.4 133 16 93/62 99 Simple Mask 8 05/25/16 05/25/16 05/26/16 15:00 23:00 07:00 Intake Total 2425 ml 1559 ml Output Total 1622 ml 2350 ml Balance 803 ml -791 ml Intake Oral 125 ml 850 ml IV Total 709 ml Other 2300 ml Output Urine Total 1560 ml 2350 ml Drainage Total 12 ml Estimated Blood Loss 50 ml # Bowel Movements 0 . Laboratory Tests Test 05/24/16 05/25/16 05/25/16 05/26/16 17:02 07:21 21:25 07:06 Erythrocyte Sedimentation Rate 65 mm/hr White Blood Count 9.5 TH/MM3 9.5 TH/MM3 7.7 TH/MM3 Red Blood Count 4.52 MIL/MM3 4.15 MIL/MM3 4.04 MIL/MM3 Hemoglobin 9.7 GM/DL 9.1 GM/DL 9.0 GM/DL Hematocrit 30.0 % 26.9 % 26.3 % Mean Corpuscular Volume 66.3 FL 64.8 FL 65.1 FL Mean Corpuscular Hemoglobin 21.6 PG 21.9 PG 22.2 PG Mean Corpuscular Hemoglobin 32.5 % 33.8 % 34.2 % Concent Red Cell Distribution Width 19.6 % 18.4 % 18.9 % Platelet Count 257 TH/MM3 280 TH/MM3 271 TH/MM3 Mean Platelet Volume 8.4 FL 8.3 FL 7.5 FL Neutrophils (%) (Auto) 77.1 % 73.1 % Lymphocytes (%) (Auto) 13.9 % 14.7 % Monocytes (%) (Auto) 7.8 % 9.9 % Eosinophils (%) (Auto) 0.6 % 1.8 % Basophils (%) (Auto) 0.6 % 0.5 % Neutrophils # (Auto) 7.3 TH/MM3 5.6 TH/MM3 Lymphocytes # (Auto) 1.3 TH/MM3 1.1 TH/MM3 Monocytes # (Auto) 0.7 TH/MM3 0.8 TH/MM3 Eosinophils # (Auto) 0.1 TH/MM3 0.1 TH/MM3 Basophils # (Auto) 0.1 TH/MM3 0.0 TH/MM3 CBC Comment AUTO DIFF AUTO DIFF Differential Comment AUTO DIFF AUTO DIFF CONFIRMED CONFIRMED Toxic Granulation 1+ Platelet Estimate NORMAL Platelet Morphology Comment NORMAL Laboratory Tests Test 05/24/16 05/25/16 05/26/16 17:02 07:21 07:06 Total Bilirubin 0.3 MG/DL Direct Bilirubin 0.1 MG/DL Indirect Bilirubin 0.2 MG/DL Aspartate Amino Transf 17 U/L (AST/SGOT) Alanine Aminotransferase 18 U/L (ALT/SGPT) Alkaline Phosphatase 177 U/L C-Reactive Protein 13.50 MG/DL Total Protein 6.2 GM/DL Albumin 1.7 GM/DL Sodium Level 139 MEQ/L 136 MEQ/L Potassium Level 3.2 MEQ/L 3.5 MEQ/L Chloride Level 102 MEQ/L 98 MEQ/L Carbon Dioxide Level 29.8 MEQ/L 32.3 MEQ/L Anion Gap 7 MEQ/L 6 MEQ/L Blood Urea Nitrogen 13 MG/DL 8 MG/DL Creatinine 0.68 MG/DL 0.65 MG/DL Estimat Glomerular Filtration 127 ML/MIN 134 ML/MIN Rate Random Glucose 91 MG/DL 92 MG/DL Calcium Level 8.2 MG/DL 7.6 MG/DL Magnesium Level 1.8 MG/DL 1.6 MG/DL Microbiology Date/Time Procedure Status Source Growth 05/24/16 13:30 Gram Stain - Final Resulted Sputum Expectorated Sputum 05/24/16 13:30 Sputum Culture - Preliminary Resulted Staphylococcus Aureus 05/24/16 16:50 Legionella Antigen - Final Complete Urine Clean Catch PRESUMPTIVE NEGATIVE FOR LEGIONELLA P... 05/24/16 16:50 Streptococcus pneumoniae Antigen (M - Final Complete Urine Clean Catch PRESUMPTIVE NEGATIVE FOR STREPTOCOCCU... 05/24/16 16:55 Aerobic Blood Culture - Preliminary Resulted Blood Peripheral Staphylococcus Aureus 05/24/16 16:55 Anaerobic Blood Culture - Preliminary Resulted Blood Peripheral NO GROWTH IN 2 DAYS 05/24/16 17:03 Aerobic Blood Culture - Preliminary Resulted Blood Peripheral Staphylococcus Aureus 05/24/16 17:03 Anaerobic Blood Culture - Preliminary Resulted Staphylococcus Aureus 05/25/16 20:00 Gram Stain - Final Resulted Fluid Other 05/25/16 20:00 Body Fluid Culture - Preliminary Resulted Fluid Other 05/25/16 20:00 Acid Fast Stain - Final Resulted Fluid Other NO ACID FAST BACILLI SEEN 05/25/16 20:00 Mycobacterial Culture Resulted Fluid Other Pending 05/25/16 20:00 Fungal Smear - Final Resulted Fluid Other NO FUNGAL ELEMENTS SEEN. 05/25/16 20:00 Fungal Culture Resulted Fluid Other Pending 05/25/16 20:00 Gram Stain - Final Resulted Wound Back 05/25/16 20:00 Wound Culture - Preliminary Resulted Wound Back 05/25/16 20:00 Acid Fast Stain - Final Resulted Wound Back NO ACID FAST BACILLI SEEN 05/25/16 20:00 Mycobacterial Culture Resulted Wound Back Pending 05/25/16 20:00 Fungal Smear - Final Resulted Wound Back NO FUNGAL ELEMENTS SEEN. 05/25/16 20:00 Fungal Culture Resulted Wound Back Pending 05/26/16 07:06 Aerobic Blood Culture Received Blood Peripheral Pending 05/26/16 07:06 Anaerobic Blood Culture Received Blood Peripheral Pending 05/26/16 07:14 Aerobic Blood Culture Received Blood Peripheral Pending 05/26/16 07:14 Anaerobic Blood Culture Received Blood Peripheral Pending Imaging Thoracic Spine MRI 05/24/16 0000 Signed Impressions: Service Date/Time: Tuesday, May 24, 2016 10:40 - CONCLUSION: 1. There is extensive bilateral paraspinal abscess extending from approximately T3-T9. The abnormality appears to be centered at the T5 level where there is vertebral body height loss and fluid and enhancement in the adjacent disc spaces suggesting discitis osteomyelitis. A portion of the abnormal fluid collection extends posteriorly on the left at C5-C6. 2. The right lower lobe airspace consolidation has a connection with the adjacent right paraspinal abscess. 3. No spinal canal stenosis is identified. There is mild epidural enhancement in the anterior epidural space at T5-T7 but no epidural abscess is appreciated. Roshan Galvez MD Lumbar Spine MRI 05/24/16 0000 Signed Impressions: Service Date/Time: Tuesday, May 24, 2016 10:40 - CONCLUSION: Significant change from prior exam. No definite acute findings. See above discussion. Roshan Jain MD Chest CT 05/24/16 0000 Signed Impressions: Service Date/Time: Tuesday, May 24, 2016 10:21 - CONCLUSION: 1. Abnormal bilateral paraspinal fluid collection extending from approximately T3-T8. The appearance is highly suggestive of a paraspinal abscess. 2. Focal air space consolidation in the medial right lower lobe abutting the paraspinal process. This likely represents focal lung infection with possible central necrosis. 3. Abnormal appearance of the kidneys suggesting interstitial nephritis or ATN. 4. Partially visualized upper abdomen suggests retroperitoneal lymphadenopathy. Roshan Galvez MD Physical Exam GENERAL: awake and alert, not toxic appearing, not in respiratory distress SKIN: Warm and dry. No generalized rash or ecchymosis. No embolic lesions noted. He has a few track loomis in both upper extremities. HEAD: Atraumatic. Normocephalic. No temporal or scalp tenderness. EYES: [place] conjunctivae, no petechia or hemorrhage. No scleral icterus. No injection or drainage. ENT: Nose without bleeding, or purulent drainage. Moist oral mucosa. Throat without erythema, or exudate. Uvula midline. Airway patent. NECK: Supple, nontender, no meningeal signs. CARDIOVASCULAR: Regular rate and rhythm without murmurs, gallops, or rubs. No murmur. RESPIRATORY: Clear to auscultation. Breath sounds equal bilaterally. He has few scattered rhonchi. Decreased at the bases. GASTROINTESTINAL: Abdomen soft, mildly tender, mildly distended. No guarding or rebound. Bowel sounds are present and normoactive. No organomegaly. MUSCULOSKELETAL: Extremities without clubbing, cyanosis, or edema. No joint tenderness, effusion. No calf tenderness. NEUROLOGICAL: Non-focal PSYCH: Normal affect, calm and cooperative. BACK: Dry incision, has a JANA drain in place, with bloody fluid. LINE: PIV with no evidence of infection Assessment & Plan Remarks IMPRESSION Staph aureus sepsis due to spine infection - R/O endocarditis Paraspinal abscess/epidural abscess S/P OR Pneumonia, ?abscess Previous Rx for osteo thoracic, removal of toracic hardware last 2013, with MSSA Previous Rx MSSA osteo of spine 2011 Known IVDU RECOMMENDATION Repeat BC to document clearing Follow C/S - will have HEPAS follow culture results and adjust Abx - if with questions, can call ID MD application support developer Continue IV Vanco and Ancef - this is most likely going to be same pathogen in his spine - he has had previous MSSA infection If MSSA, stop IV Vanco and continue IV Ancef If MRSA, continue IV Vanco and stop IV Ancef Monitor progress Will need long course IV Abx, then oral suppressions Explained plan to the patient Dr Kapoor covering this weekend if with any ID issue or question Genie Wadsworth MD May 26, 2016 14:27
[2016-05-26 16:02] VITALS: BP 125/78; PULSE 101; RESP 18; TEMP 96.5; O2SAT 97
[2016-05-26] MEDS ORDERED: PHARMACY ORDERED LAB ONE (19:45)
[2016-05-26 20:00] VITALS: BP 109/60; PULSE 118; RESP 18; TEMP 98.6; O2SAT 99
[2016-05-26 20:59] VITALS: O2SAT 99
[2016-05-26 21:01] VITALS: O2SAT 99
[2016-05-26] MEDS: MORPHINE SULFATE 30 MG CONTROLLED RELEASE TAB PO SCH (21:32)
--- NOTE | 2016-05-26 23:56 | HHI.NSPN ---
History Chief Complaint: back pain Interval History 05/25/16: T4-T5 laminectomy, evacuation epidural and paraspinous abscess System Review Comments No chest pain or shortness of breath. No nausea or vomiting. No fevers or chills Exam Results Vital Signs Date Time Temp Pulse Resp B/P Pulse Ox O2 Delivery O2 Flow Rate FiO2 05/26/16 21:01 99 Nasal Cannula 2.00 05/26/16 20:00 98.6 118 18 109/60 Intake and Output 05/25/16 05/25/16 05/26/16 08:00 16:00 00:00 Intake Total 400 ml 2425 ml Output Total 600 ml 2372 ml Balance -200 ml 53 ml Physical Examination Respiratory: Mild coarse breath sounds. Nonlabored CV: Regular rate & rhythm without murmur. Abdomen: soft, non-tender, positive bowel sounds. Incision: Dressing dry and intact. No drainage. No significant erythema or edema Extremities: No significant joint pain. No lower extremity edema Neuro: Awake and alert oriented conversant. Mild anxiety Speech is clear and appropriate Extraocular movements intact Sensation intact light touch all extremities Strength normal major flexion and extension groups all extremities Lab, Micro, Other Results Laboratory Tests Test 05/26/16 05/26/16 07:06 20:30 White Blood Count 7.7 TH/MM3 Red Blood Count 4.04 MIL/MM3 Hemoglobin 9.0 GM/DL Hematocrit 26.3 % Mean Corpuscular Volume 65.1 FL Mean Corpuscular Hemoglobin 22.2 PG Mean Corpuscular Hemoglobin 34.2 % Concent Red Cell Distribution Width 18.9 % Platelet Count 271 TH/MM3 Mean Platelet Volume 7.5 FL Neutrophils (%) (Auto) 73.1 % Lymphocytes (%) (Auto) 14.7 % Monocytes (%) (Auto) 9.9 % Eosinophils (%) (Auto) 1.8 % Basophils (%) (Auto) 0.5 % Neutrophils # (Auto) 5.6 TH/MM3 Lymphocytes # (Auto) 1.1 TH/MM3 Monocytes # (Auto) 0.8 TH/MM3 Eosinophils # (Auto) 0.1 TH/MM3 Basophils # (Auto) 0.0 TH/MM3 CBC Comment AUTO DIFF Differential Comment AUTO DIFF CONFIRMED Toxic Granulation 1+ Platelet Estimate NORMAL Platelet Morphology Comment NORMAL Sodium Level 136 MEQ/L Potassium Level 3.5 MEQ/L Chloride Level 98 MEQ/L Carbon Dioxide Level 32.3 MEQ/L Anion Gap 6 MEQ/L Blood Urea Nitrogen 8 MG/DL Creatinine 0.65 MG/DL Estimat Glomerular Filtration 134 ML/MIN Rate Random Glucose 92 MG/DL Calcium Level 7.6 MG/DL Magnesium Level 1.6 MG/DL Vancomycin Level Trough 14.8 MCG/ML Medical Decision Making Impression and Plan Impression: Stable neurologic function status post thoracic laminectomy, evacuation epidural and paraspinous abscess Plan: Continue draining at present Mobilize out of bed with therapy Pain medications adjusted Continue non-chemical DVT prophylaxis Infectious disease following. Continuing IV antibiotics Jeffry Pickard MD May 26, 2016 23:56
[2016-05-27] VITALS (7 sets, daily range): BP systolic 118–132; BP diastolic 76–84; PULSE 100–110; RESP 16–20; TEMP 97.4–99.1; O2SAT 94–100
[2016-05-27] MEDS: HYDROmorphone HCL PF 1 MG/ML VIAL IV PRN ×7 (00:56→20:13)
[2016-05-27] MEDS: ceFAZolin 2 GM PREMIX 50 ML IV SCH ×3 (00:58→16:22)
[2016-05-27] MEDS: oxyCODONE/ACETAMINOPHEN 10 MG/325 MG TAB PO PRN ×3 (02:55→23:23)
[2016-05-27] MEDS: VANCOMYCIN 1,000 MG/NS 250 ML IV SCH ×2 (02:56)
[2016-05-27] MEDS: D5-1/2 NS + KCL 20 MEQ INJ 1,000 ML IV SCH ×3 (02:56→23:23)
[2016-05-27] MEDS: RESP: ALBUTEROL 2.5 MG/IPRATROPIUM 0.5 MG NEB (SCH) NEB ×3 (07:55→19:34)
[2016-05-27] MEDS: SODIUM CHLORIDE 0.9% FLUSH 5 ML FLUSH IVF SCH ×2 (09:00→20:13)
[2016-05-27] MEDS: DOCUSATE SODIUM 100 MG CAP PO SCH ×2 (09:28→20:13)
[2016-05-27] MEDS: SENNOSIDES 8.6 MG TAB PO SCH (09:28)
[2016-05-27] MEDS: MORPHINE SULFATE 30 MG CONTROLLED RELEASE TAB PO SCH ×2 (09:28→20:13)
[2016-05-27 10:15] LABS: HEMATOCRIT 28.4 % (39.0-51.0); MEAN CELL VOLUME 66.7 FL (80.0-100.0); MEAN CORPUSCULAR HEMOGLOBIN 21.8 PG (27.0-34.0); MEAN CORPUSCULAR HGB CONC 32.7 % (32.0-36.0); PLATELET COUNT 261 TH/MM3 (150-450); RED BLOOD COUNT 4.26 MIL/MM3 (4.50-5.90); RED CELL DISTRIBUTION WIDTH 19.4 % (11.6-17.2); WHITE BLOOD COUNT 7.2 TH/MM3 (4.0-11.0)
[2016-05-27 10:17] LABS: REVIEW FLAG FINAL
[2016-05-27 10:37] LABS: BICARBONATE 32.6 MEQ/L (21.0-32.0); MAGNESIUM 1.9 MG/DL (1.5-2.5); POTASSIUM 3.7 MEQ/L (3.5-5.1)
[2016-05-27] MEDS ORDERED: Vancomycin Consult Pharmacy 1 EA OTHER SCH (12:00)
--- NOTE | 2016-05-27 12:02 | HHI.PR ---
Subjective Remarks The patient said he had a hard time sleeping at night secondary to back pain. He said his pain was controlled at the moment. He said he tried to work with physical therapy. He says he has been having bowel movements. Discussed with nursing. Objective Vitals Vital Signs Date Time Temp Pulse Resp B/P Pulse Ox O2 Delivery O2 Flow Rate FiO2 05/27/16 10:44 18 05/27/16 08:03 97.4 109 20 132/84 100 05/27/16 07:55 99 Nasal Cannula 4.00 05/27/16 04:00 97.5 100 16 131/83 99 05/26/16 21:01 99 Nasal Cannula 2.00 05/26/16 20:59 99 Nasal Cannula 2.00 05/26/16 20:30 99 Nasal Cannula 3.00 05/26/16 20:00 98.6 118 18 109/60 99 05/26/16 16:02 96.5 101 18 125/78 97 05/26/16 13:43 18 05/26/16 12:27 97.5 99 18 129/90 98 I/O 05/26/16 05/26/16 05/26/16 05/27/16 05/27/16 05/27/16 07:00 15:00 23:00 07:00 15:00 23:00 Intake Total 1559 ml 1389 ml 240 ml Output Total 2350 ml 30 ml 825 ml 1065 ml Balance -791 ml -30 ml 564 ml -825 ml Intake Oral 850 ml 240 ml 240 ml IV Total 709 ml 1149 ml Output Urine Total 2350 ml 825 ml 1050 ml Drainage Total 30 ml 15 ml # Voids 4 # Bowel Movements 0 0 0 Result Diagram: 05/27/16 0940 05/27/16 0940 Imaging Last Impressions Chest X-Ray 05/25/16 0000 Signed Impressions: Service Date/Time: May 22:46 - CONCLUSION: Mild vascular congestion and bibasilar atelectasis. Roshan Jain MD Thoracic Spine MRI 05/24/16 0000 Signed Impressions: Service Date/Time: Tuesday, May 24, 2016 10:40 - CONCLUSION: 1. There is extensive bilateral paraspinal abscess extending from approximately T3-T9. The abnormality appears to be centered at the T5 level where there is vertebral body height loss and fluid and enhancement in the adjacent disc spaces suggesting discitis osteomyelitis. A portion of the abnormal fluid collection extends posteriorly on the left at C5-C6. 2. The right lower lobe airspace consolidation has a connection with the adjacent right paraspinal abscess. 3. No spinal canal stenosis is identified. There is mild epidural enhancement in the anterior epidural space at T5-T7 but no epidural abscess is appreciated. Roshan Galvez MD Lumbar Spine MRI 05/24/16 0000 Signed Impressions: Service Date/Time: Tuesday, May 24, 2016 10:40 - CONCLUSION: Significant change from prior exam. No definite acute findings. See above discussion. Roshan Jain MD Chest CT 05/24/16 0000 Signed Impressions: Service Date/Time: Tuesday, May 24, 2016 10:21 - CONCLUSION: 1. Abnormal bilateral paraspinal fluid collection extending from approximately T3-T8. The appearance is highly suggestive of a paraspinal abscess. 2. Focal air space consolidation in the medial right lower lobe abutting the paraspinal process. This likely represents focal lung infection with possible central necrosis. 3. Abnormal appearance of the kidneys suggesting interstitial nephritis or ATN. 4. Partially visualized upper abdomen suggests retroperitoneal lymphadenopathy. Roshan Galvez MD Objective Remarks GENERAL: No apparent distress, resting comfortably. HEAD: Atraumatic. Normocephalic. EYES: Pupils equal and round. No scleral icterus. No injection or drainage. ENT: No nasal bleeding or discharge. Mucous membranes pink and moist. NECK: Trachea midline. No JVD. CARDIOVASCULAR: Tachycardic. No murmur appreciated. RESPIRATORY: Bilateral crackles noted. GASTROINTESTINAL: Abdomen soft, non-tender, nondistended. Hepatic and splenic margins not palpable. MUSCULOSKELETAL: No obvious deformities. No clubbing. No cyanosis. No edema. BACK: Tender to palpation of upper back. Drain and bandages in place. NEUROLOGICAL: Awake and alert. No gross deficits. PSYCHIATRIC: Appropriate mood and affect; insight and judgment normal. Procedures T4-5 decompressive laminectomy, evacuation epidural abscess and granulation tissue Evacuation thoracic paraspinous abscess Medications and IVs Current Medications Medications (Trade) Dose Ordered Sig/Rony Route Start Time Stop Time Status Last Admin ([place] 5-325 Mg) 1 tab Q4H PRN PO 05/24/16 04:30 (Percocet 10-325 Mg) 1 tab Q6H PRN PO 05/24/16 04:30 05/27/16 02:55 (Dilaudid Pf Inj) 1 mg Q3H PRN IV 05/24/16 04:30 05/27/16 10:14 (Morphine Inj) 4 mg Q3H PRN IV 05/24/16 04:30 (Narcan Inj) 0.4 mg UNSCH PRN IV 05/24/16 04:30 (D50w (Vial) Inj) 25 ml UNSCH PRN IV PUSH 05/24/16 14:15 (Glucagon Inj) 1 mg UNSCH PRN OTHER 05/24/16 14:15 Albuterol Sulfate 2 puff 2 puff Q4H PRN INH 05/24/16 16:00 05/24/16 17:46 (Ancef 2 Gm Premix) 50 ml @ 100 mls/hr Q8H IV 05/25/16 17:00 05/27/16 09:31 (Colace) 100 mg BID PO 05/25/16 21:00 05/27/16 09:28 (Senokot) 17.2 mg DAILY PO 05/25/16 18:00 05/27/16 09:28 (NS Flush) 2 ml UNSCH PRN IVF 05/25/16 21:45 IV Flush 2 ml 2 ml BID IVF 05/26/16 09:00 05/27/16 09:00 (D5-1/2 NS + KCl 20 Meq Inj) 1,000 ml @ 100 mls/hr Q10H IV 05/25/16 21:43 05/27/16 02:56 (Oramorph Sr) 30 mg Q12HR PO 05/26/16 21:00 05/27/16 09:28 A/P Assessment and Plan Multiple infections/ Sepsis Thoracic spine MRI shows: There is extensive bilateral paraspinal abscess extending from approximately T3-T9; The abnormality appears to be centered at the T5 level where there is vertebral body height loss and fluid and enhancement in the adjacent disc spaces suggesting discitis osteomyelitis; A portion of the abnormal fluid collection extends posteriorly on the left at C5- C6; The right lower lobe airspace consolidation has a connection with the adjacent right paraspinal abscess. Lumbar spine MRI: Significant change from prior exam; No definite acute findings. Chest CT: Abnormal bilateral paraspinal fluid collection extending from approximately T3-T8; The appearance is highly suggestive of a paraspinal abscess; Focal air space consolidation in the medial right lower lobe abutting the paraspinal process; This likely represents focal lung infection with possible central necrosis. S/p T4-5 decompressive laminectomy, evacuation epidural abscess and granulation tissue; Evacuation thoracic paraspinous abscess 05/26. 3 out of 4 blood cultures grew MSSA. Repeat blood cultures are negative. Fluid culture also grew MSSA. - wound care, weightbearing and anticoagulation per neurosurgery. - antibiotics per ID. Will d/c vancomycin and continue cefazolin once back culture also confirmed to be growing MSSA. - pain control as needed with a bowel regimen. - physical therapy. - incentive spirometry. Anemia Likely s/t sepsis. - follow CBC. - treat underlying infections. - check Hemoccult. Hyperglycemia Blood sugar was elevated on admission. Likely a stress reaction. A1c 5.3%. - follow BMP as needed. IV drug abuse Last used 6 months ago. - Cessation instruction. Nicotine dependence The patient smokes 5 cigarettes daily. - Cessation instruction given. PPx: Per neurosurgery. Discharge Planning Per primary. Bryan Spaulding DO May 27, 2016 12:02
--- NOTE | 2016-05-27 12:36 | HHI.NSPN ---
(Layla Mayfield) Note Status Status: Progress Note (Layla Mayfield) Interval History Interval History 05/25/16: T4-T5 laminectomy, evacuation epidural and paraspinous abscess 05/27: Pain controlled, denies focal weakness in lower extremities (Layla Mayfield) Labs, Micro, & Vital Signs Results Date Time Temp Pulse Resp B/P Pulse Ox O2 Delivery O2 Flow Rate FiO2 05/27/16 10:44 18 05/27/16 08:03 97.4 109 20 132/84 100 05/27/16 07:55 99 Nasal Cannula 4.00 05/27/16 04:00 97.5 100 16 131/83 99 05/26/16 21:01 99 Nasal Cannula 2.00 05/26/16 20:59 99 Nasal Cannula 2.00 05/26/16 20:30 99 Nasal Cannula 3.00 05/26/16 20:00 98.6 118 18 109/60 99 05/26/16 16:02 96.5 101 18 125/78 97 05/26/16 13:43 18 05/27/16 07:00 Intake Total 1629 ml Output Total 1920 ml Balance -291 ml Constitutional Vital Signs Date Time Temp Pulse Resp B/P Pulse Ox O2 Delivery O2 Flow Rate FiO2 05/27/16 10:44 18 05/27/16 08:03 97.4 109 20 132/84 100 05/27/16 07:55 99 Nasal Cannula 4.00 05/27/16 04:00 97.5 100 16 131/83 99 05/26/16 21:01 99 Nasal Cannula 2.00 05/26/16 20:59 99 Nasal Cannula 2.00 05/26/16 20:30 99 Nasal Cannula 3.00 05/26/16 20:00 98.6 118 18 109/60 99 05/26/16 16:02 96.5 101 18 125/78 97 05/26/16 13:43 18 05/27/16 07:00 Intake Total 1629 ml Output Total 1920 ml Balance -291 ml (Layla Mayfield) Review of Systems/Exam Exam Alert, conversing and follows commands well. Neck: soft, supple Motor: moves all major muscle groups of upper and lower extremities well Plantars downgoing b/l, no ankle clonus (Layla Mayfield) Medications Current Medications Current Medications Medications (Trade) Dose Ordered Sig/Rony Route PRN Reason Start Time Stop Time Status Last Admin Dose Admin Acetaminophen/ Hydrocodone Bitart ([place] 5-325 Mg) 1 tab Q4H PRN PO PAIN SCALE 3 TO 5 05/24/16 04:30 Oxycodone/ Acetaminophen (Percocet 10-325 Mg) 1 tab Q6H PRN PO PAIN SCALE 6 TO 10 05/24/16 04:30 05/27/16 02:55 Hydromorphone HCl (Dilaudid Pf Inj) 1 mg Q3H PRN IV PAIN6-10 not controlled PO med 05/24/16 04:30 05/27/16 10:14 Morphine Sulfate (Morphine Inj) 4 mg Q3H PRN IV BREAKTHROUGH PAIN 05/24/16 04:30 Naloxone HCl (Narcan Inj) 0.4 mg UNSCH PRN IV SEE LABEL COMMENTS 05/24/16 04:30 Dextrose (D50w (Vial) Inj) 25 ml UNSCH PRN IV PUSH HYPOGLYCEMIA - SEE COMMENTS 05/24/16 14:15 Glucagon (Glucagon Inj) 1 mg UNSCH PRN OTHER HYPOGLYCEMIA-SEE COMMENTS 05/24/16 14:15 Albuterol Sulfate 2 puff 2 puff Q4H PRN INH Dyspnea 05/24/16 16:00 05/24/16 17:46 Cefazolin Sodium/ Dextrose (Ancef 2 Gm Premix) 50 ml @ 100 mls/hr Q8H IV 05/25/16 17:00 05/27/16 09:31 Docusate Sodium (Colace) 100 mg BID PO 05/25/16 21:00 05/27/16 09:28 Sennosides (Senokot) 17.2 mg DAILY PO 05/25/16 18:00 05/27/16 09:28 IV Flush (NS Flush) 2 ml UNSCH PRN IVF FLUSH AFTER USING IV ACCESS 05/25/16 21:45 IV Flush 2 ml 2 ml BID IVF 05/26/16 09:00 05/27/16 09:00 Potassium Chloride/Dextrose/ Sod Cl (D5-1/2 NS + KCl 20 Meq Inj) 1,000 ml @ 100 mls/hr Q10H IV 05/25/16 21:43 05/27/16 02:56 Morphine Sulfate 30 mg 30 mg Q12HR PO 05/26/16 21:00 05/27/16 09:28 Pharmacy Profile Note 0 ml @ 0 mls/hr UNSCH OTHER 05/27/16 12:00 Vancomycin HCl/ Sodium Chloride (Vancomycin Inj/ NS 250 ml Inj) 250 ml @ 250 mls/hr Q8H IV 05/27/16 12:00 (Layla Mayfield) Medical Decision Making MDM Remarks 41 y/o male s/p thoracic laminectomy for evacuation of epidural abscess (Layla Mayfield) Plan Plan Remarks cont current care cont IV abx cont therapy and rehab, encouraged mobilization - OOB con JANA draining today (Layla Mayfield) Attending Statement The exam, history, and the medical decision-making described in the above note were completed with the assistance of the mid-level provider. I reviewed and agree with the findings presented. I attest that I had a [id number] encounter with the patient on the same day, and personally performed and documented my assessment and findings in the medical record. (Julius Huitron MD) Layla Mayfield May 27, 2016 12:36 Julius Huitron MD May 28, 2016 18:33
[2016-05-27] MEDS: VANCOMYCIN INJ 1,000 MG in SODIUM CHLOR 0.9% 250 ML INJ 250 ML IV SCH ×2 (12:53→20:44)
[2016-05-27] MEDS ORDERED: PHARMACY ORDERED LAB ONE (19:45)
[2016-05-28] MEDS: ceFAZolin 2 GM PREMIX 50 ML IV SCH ×3 (00:15→18:08)
[2016-05-28 00:35] VITALS: BP 106/72; PULSE 112; RESP 18; TEMP 97.9; O2SAT 93
[2016-05-28] MEDS: VANCOMYCIN INJ 1,000 MG in SODIUM CHLOR 0.9% 250 ML INJ 250 ML IV SCH ×2 (03:10→11:49)
[2016-05-28] MEDS: HYDROmorphone HCL PF 1 MG/ML VIAL IV PRN ×7 (03:15→21:53)
[2016-05-28] MEDS: oxyCODONE/ACETAMINOPHEN 10 MG/325 MG TAB PO PRN ×3 (06:29→18:07)
[2016-05-28] MEDS: RESP: ALBUTEROL 2.5 MG/IPRATROPIUM 0.5 MG NEB (SCH) NEB (08:00)
[2016-05-28 08:30] VITALS: BP 122/80; PULSE 103; RESP 20; TEMP 97.2; O2SAT 96
[2016-05-28] MEDS: SODIUM CHLORIDE 0.9% FLUSH 5 ML FLUSH IVF SCH ×2 (09:00→21:53)
[2016-05-28 09:13] VITALS: O2SAT 97
[2016-05-28] MEDS: DOCUSATE SODIUM 100 MG CAP PO SCH ×2 (09:29→21:11)
[2016-05-28] MEDS: SENNOSIDES 8.6 MG TAB PO SCH (09:29)
[2016-05-28] MEDS: MORPHINE SULFATE 30 MG CONTROLLED RELEASE TAB PO SCH ×2 (09:29→21:11)
[2016-05-28] MEDS: D5-1/2 NS + KCL 20 MEQ INJ 1,000 ML IV SCH (09:43)
--- NOTE | 2016-05-28 12:06 | HHI.NSPN ---
(Layla Mayfield) Note Status Status: Progress Note (Layla Mayfield) Interval History Interval History 05/25/16: T4-T5 laminectomy, evacuation epidural and paraspinous abscess 05/27: Pain controlled, denies focal weakness in lower extremities 05/28: ambulated yesterday, has increased thoracic pain with movement, no new neuro complaints (Layla Mayfield) Labs, Micro, & Vital Signs Results Date Time Temp Pulse Resp B/P Pulse Ox O2 Delivery O2 Flow Rate FiO2 05/28/16 09:13 97 High Flow Nasal Cannula 21 05/28/16 08:30 97.2 103 20 122/80 96 05/28/16 00:35 97.9 112 18 106/72 93 05/27/16 21:03 99.1 105 20 126/77 94 05/27/16 19:34 97 21 05/27/16 19:00 Nasal Cannula 3.00 05/27/16 16:52 18 05/27/16 16:42 99.1 110 20 129/76 97 05/27/16 13:14 98.5 102 20 118/78 99 05/28/16 07:00 Intake Total 2244 ml Output Total 3130 ml Balance -886 ml Constitutional Vital Signs Date Time Temp Pulse Resp B/P Pulse Ox O2 Delivery O2 Flow Rate FiO2 05/28/16 09:13 97 High Flow Nasal Cannula 21 05/28/16 08:30 97.2 103 20 122/80 96 05/28/16 00:35 97.9 112 18 106/72 93 05/27/16 21:03 99.1 105 20 126/77 94 05/27/16 19:34 97 21 05/27/16 19:00 Nasal Cannula 3.00 05/27/16 16:52 18 05/27/16 16:42 99.1 110 20 129/76 97 05/27/16 13:14 98.5 102 20 118/78 99 05/28/16 07:00 Intake Total 2244 ml Output Total 3130 ml Balance -886 ml (Layla Mayfield) Review of Systems/Exam Exam Alert, conversing and follows commands well. [place] Neck: soft, supple, no meningismus or nuchal rigidity Motor: moves all major muscle groups of upper and lower extremities well 5/5 Plantars downgoing b/l, no ankle clonus Surgical wound with dry dressing in place, JANA drain intact with moderate output. (Layla Mayfield) Medications Current Medications Current Medications Medications (Trade) Dose Ordered Sig/Rony Route PRN Reason Start Time Stop Time Status Last Admin Dose Admin Acetaminophen/ Hydrocodone Bitart ([place] 5-325 Mg) 1 tab Q4H PRN PO PAIN SCALE 3 TO 5 05/24/16 04:30 Oxycodone/ Acetaminophen (Percocet 10-325 Mg) 1 tab Q6H PRN PO PAIN SCALE 6 TO 10 05/24/16 04:30 05/28/16 11:49 Hydromorphone HCl (Dilaudid Pf Inj) 1 mg Q3H PRN IV PAIN6-10 not controlled PO med 05/24/16 04:30 05/28/16 09:30 Morphine Sulfate (Morphine Inj) 4 mg Q3H PRN IV BREAKTHROUGH PAIN 05/24/16 04:30 Naloxone HCl (Narcan Inj) 0.4 mg UNSCH PRN IV SEE LABEL COMMENTS 05/24/16 04:30 Dextrose (D50w (Vial) Inj) 25 ml UNSCH PRN IV PUSH HYPOGLYCEMIA - SEE COMMENTS 05/24/16 14:15 Glucagon (Glucagon Inj) 1 mg UNSCH PRN OTHER HYPOGLYCEMIA-SEE COMMENTS 05/24/16 14:15 Albuterol Sulfate 2 puff 2 puff Q4H PRN INH Dyspnea 05/24/16 16:00 05/24/16 17:46 Cefazolin Sodium/ Dextrose (Ancef 2 Gm Premix) 50 ml @ 100 mls/hr Q8H IV 05/25/16 17:00 05/28/16 09:28 Docusate Sodium (Colace) 100 mg BID PO 05/25/16 21:00 05/28/16 09:29 Sennosides (Senokot) 17.2 mg DAILY PO 05/25/16 18:00 05/28/16 09:29 IV Flush (NS Flush) 2 ml UNSCH PRN IVF FLUSH AFTER USING IV ACCESS 05/25/16 21:45 IV Flush 2 ml 2 ml BID IVF 05/26/16 09:00 05/28/16 09:00 Potassium Chloride/Dextrose/ Sod Cl (D5-1/2 NS + KCl 20 Meq Inj) 1,000 ml @ 100 mls/hr Q10H IV 05/25/16 21:43 05/27/16 23:23 Morphine Sulfate 30 mg 30 mg Q12HR PO 05/26/16 21:00 05/28/16 09:29 Pharmacy Profile Note 0 ml @ 0 mls/hr UNSCH OTHER 05/27/16 12:00 Vancomycin HCl/ Sodium Chloride (Vancomycin Inj/ NS 250 ml Inj) 250 ml @ 250 mls/hr Q8H IV 05/27/16 12:00 05/28/16 11:49 (Layla Mayfield) Medical Decision Making MDM Remarks 41 y/o male s/p thoracic laminectomy for evacuation of epidural abscess (Layla Mayfield) Plan Plan Remarks cont current care cont IV abx cont therapy and rehab, encouraged mobilization - OOB TLSO on OOB cont JANA draining today daily dressing changes (Layla Mayfield) Attending Statement The exam, history, and the medical decision-making described in the above note were completed with the assistance of the mid-level provider. I reviewed and agree with the findings presented. I attest that I had a [id number] encounter with the patient on the same day, and personally performed and documented my assessment and findings in the medical record. (Julius Huitron MD) Layla Mayfield May 28, 2016 12:06 Julius Huitron MD May 28, 2016 18:33
[2016-05-28 12:30] VITALS: BP 129/87; PULSE 96; RESP 20; TEMP 97.2; O2SAT 97
[2016-05-28 17:26] VITALS: BP 124/73; PULSE 111; RESP 20; TEMP 98.2; O2SAT 97
[2016-05-28] MEDS ORDERED: PHARMACY ORDERED LAB ONE (19:45)
[2016-05-28 20:00] VITALS: BP 121/79; PULSE 111; RESP 20; TEMP 98.9; O2SAT 96
[2016-05-29] MEDS: D5-1/2 NS + KCL 20 MEQ INJ 1,000 ML IV SCH ×2 (00:09→05:09)
[2016-05-29] MEDS: oxyCODONE/ACETAMINOPHEN 10 MG/325 MG TAB PO PRN ×2 (00:09→06:14)
[2016-05-29] MEDS: ceFAZolin 2 GM PREMIX 50 ML IV SCH ×3 (00:09→17:00)
[2016-05-29] MEDS: HYDROmorphone HCL PF 1 MG/ML VIAL IV PRN ×8 (02:10→22:48)
[2016-05-29] MEDS: SENNOSIDES 8.6 MG TAB PO SCH (08:24)
[2016-05-29] MEDS: DOCUSATE SODIUM 100 MG CAP PO SCH ×2 (08:24→21:41)
[2016-05-29] MEDS: MORPHINE SULFATE 30 MG CONTROLLED RELEASE TAB PO SCH ×2 (08:27→21:41)
[2016-05-29] MEDS: SODIUM CHLORIDE 0.9% FLUSH 5 ML FLUSH IVF SCH ×2 (09:00→21:00)
--- NOTE | 2016-05-29 11:29 | HHI.NSPN ---
History Chief Complaint: back pain Interval History 05/25/16: T4-T5 laminectomy, evacuation epidural and paraspinous abscess 05/29/16: Drain discontinued. Exam Results Vital Signs Date Time Temp Pulse Resp B/P Pulse Ox O2 Delivery O2 Flow Rate FiO2 05/28/16 22:10 Room Air 05/28/16 20:00 98.9 111 20 121/79 96 05/28/16 09:13 21 05/27/16 19:00 3.00 Intake and Output 05/28/16 05/28/16 05/29/16 08:00 16:00 00:00 Intake Total 1284 ml 2249 ml Output Total 1700 ml 3950 ml Balance -416 ml -1701 ml Physical Examination Alert, conversing and follows commands well. No apparent distress Neck: soft, supple, no meningismus or nuchal rigidity Motor: moves all major muscle groups of upper and lower extremities well 5/5 Sensation intact light touch all extremities Surgical wound with dry dressing in place, JANA drain intact with mild output. Medical Decision Making Impression and Plan Impression: Stable neurologic function status post thoracic laminectomy, evacuation epidural and paraspinous abscess Plan: Discontinue thoracic drain Discontinue IV fluids Mobilize out of bed with therapy Pain medications adjusted Continue non-chemical DVT prophylaxis Infectious disease following. Continuing IV antibiotics Jeffry Pickard MD May 29, 2016 11:27
[2016-05-29 11:57] VITALS: BP 141/91; PULSE 103; RESP 20; TEMP 96.5; O2SAT 98
[2016-05-29] MEDS: HYDROmorphone HCL 4 MG TAB PO PRN ×3 (13:13→21:41)
--- NOTE | 2016-05-29 13:31 | HHI.IDPN ---
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 Recently treated at [facility] for ?lung abscess and recurrent spinal abscess. Now with epidural abscess same area and possibly extending into lung. Notes reviewed C/S with MSSA BC also with MSSA Repeat BC negative so far Echo report - good study, valves all look normal Sputum C/S MSSA OR C/S pending Echo ok He is afebrile ESR 65 CRP 13 Voiding ok Antibiotics Ancef Lines PIV Past Medical History Reviewed Allergies: Coded Allergies: Aspirin (Verified Allergy, Severe, 09/23/13) PATIENT STATES HE HAD A HOLE IN HIS HEART WHEN HE WAS BORN AND HE WAS TOLD NOT TO TAKE ASPIRIN. PENITENTIARY MAR STATES NO KNOWN ALLERGIES PATIENT DENIES ALLERGY TO ASPIRIN. 04/01/13 Objective . Vital Signs Date Time Temp Pulse Resp B/P Pulse Ox O2 Delivery O2 Flow Rate FiO2 05/29/16 11:57 96.5 103 20 141/91 98 05/28/16 22:10 Room Air 05/28/16 20:00 98.9 111 20 121/79 96 05/28/16 17:26 98.2 111 20 124/73 97 05/28/16 05/28/16 05/29/16 15:00 23:00 07:00 Intake Total 2249 ml Output Total 2950 ml 1450 ml Balance -701 ml -1450 ml Intake Oral 720 ml IV Total 1529 ml Output Urine Total 2925 ml 1450 ml Drainage Total 25 ml # Bowel Movements 1 0 Imaging Thoracic Spine MRI 05/24/16 0000 Signed Impressions: Service Date/Time: Tuesday, May 24, 2016 10:40 - CONCLUSION: 1. There is extensive bilateral paraspinal abscess extending from approximately T3-T9. The abnormality appears to be centered at the T5 level where there is vertebral body height loss and fluid and enhancement in the adjacent disc spaces suggesting discitis osteomyelitis. A portion of the abnormal fluid collection extends posteriorly on the left at C5-C6. 2. The right lower lobe airspace consolidation has a connection with the adjacent right paraspinal abscess. 3. No spinal canal stenosis is identified. There is mild epidural enhancement in the anterior epidural space at T5-T7 but no epidural abscess is appreciated. Roshan Galvez MD Lumbar Spine MRI 05/24/16 0000 Signed Impressions: Service Date/Time: Tuesday, May 24, 2016 10:40 - CONCLUSION: Significant change from prior exam. No definite acute findings. See above discussion. Roshan Jain MD Chest CT 05/24/16 0000 Signed Impressions: Service Date/Time: Tuesday, May 24, 2016 10:21 - CONCLUSION: 1. Abnormal bilateral paraspinal fluid collection extending from approximately T3-T8. The appearance is highly suggestive of a paraspinal abscess. 2. Focal air space consolidation in the medial right lower lobe abutting the paraspinal process. This likely represents focal lung infection with possible central necrosis. 3. Abnormal appearance of the kidneys suggesting interstitial nephritis or ATN. 4. Partially visualized upper abdomen suggests retroperitoneal lymphadenopathy. Roshan Galvez MD Physical Exam GENERAL: awake and alert, NAD SKIN: Warm and dry. No generalized rash or ecchymosis. HEENT: [place] conjunctivae, no petechia or hemorrhage. No scleral icterus. No injection or drainage. Moist oral mucosa. NECK: Supple, nontender, no meningeal signs. CARDIOVASCULAR: Regular rate and rhythm without murmurs, gallops, or rubs. No murmur. RESPIRATORY: Clear to auscultation. Breath sounds equal bilaterally. He has few scattered rhonchi. Decreased at the bases. GASTROINTESTINAL: Abdomen soft, mildly tender, mildly distended. No guarding or rebound. Bowel sounds are present and normoactive. No organomegaly. MUSCULOSKELETAL: Extremities without clubbing, cyanosis, or edema. No joint tenderness, effusion. No calf tenderness. NEUROLOGICAL: Non-focal PSYCH: Normal affect, calm and cooperative. BACK: Dry incision LINE: PIV with no evidence of infection Assessment & Plan Remarks IMPRESSION Staph aureus sepsis due to spine infection - R/O endocarditis Paraspinal abscess/epidural abscess S/P OR Pneumonia, ?abscess Previous Rx for osteo thoracic, removal of toracic hardware last 2013, with MSSA Previous Rx MSSA osteo of spine 2011 Known IVDU RECOMMENDATION If repeat BC negative, will order PICC Will need 6-8 weeks IV Abx from date of surgery - 6 weeks would be July 05 - 8 weeks would be July 19 - follow ESR to guide duration - then chronic oral suppression with Keflex or Dicloxacillin Labs weekly while on IV Abx: CBC, creat, LFT Monitor progress Genie Wadsworth MD May 29, 2016 13:31
[2016-05-29 16:18] VITALS: BP 135/87; PULSE 112; RESP 20; TEMP 99.1; O2SAT 97
[2016-05-29] MEDS: SODIUM CHLORIDE 0.9% FLUSH 5 ML FLUSH IVF PRN (22:48)
[2016-05-30] VITALS: BP 101/66; PULSE 125; RESP 22; TEMP 99.1; O2SAT 95
[2016-05-30] MEDS: ceFAZolin 2 GM PREMIX 50 ML IV SCH ×3 (01:25→19:16)
[2016-05-30] MEDS: HYDROmorphone HCL 4 MG TAB PO PRN ×6 (01:26→22:27)
[2016-05-30] MEDS: HYDROmorphone HCL PF 1 MG/ML VIAL IV PRN ×3 (02:22→12:32)
[2016-05-30 06:12] VITALS: BP_SYST 100; BP_SYST 88; BP_DIAS 50; BP_DIAS 58; PULSE 22; TEMP 97.9; O2SAT 96
[2016-05-30 08:01] VITALS: BP 111/68; PULSE 102; RESP 20; TEMP 98.6; O2SAT 98
[2016-05-30] MEDS: SODIUM CHLORIDE 0.9% FLUSH 5 ML FLUSH IVF SCH ×2 (09:00→21:00)
[2016-05-30] MEDS: DOCUSATE SODIUM 100 MG CAP PO SCH ×2 (09:33→19:16)
[2016-05-30] MEDS: MORPHINE SULFATE 30 MG CONTROLLED RELEASE TAB PO SCH (09:33)
[2016-05-30] MEDS: SENNOSIDES 8.6 MG TAB PO SCH (09:33)
[2016-05-30 12:04] VITALS: BP 127/89; PULSE 116; RESP 20; TEMP 98.1; O2SAT 99
[2016-05-30] MEDS: RIFAMPIN 150 MG CAP PO SCH ×2 (13:00→22:27)
--- NOTE | 2016-05-30 14:56 | HHI.PR ---
Subjective Remarks The patient wanted to know why his breathing treatments were not coming anymore. He said he gets short of breath when he walks long distance. He said he wasn't getting his pain medications frequently enough. Otherwise no acute complaints. Objective Vitals Vital Signs Date Time Temp Pulse Resp B/P Pulse Ox O2 Delivery O2 Flow Rate FiO2 05/30/16 12:04 98.1 116 20 127/89 99 05/30/16 08:01 98.6 102 20 111/68 98 05/30/16 06:12 97.9 22 88/50 96 100/58 05/30/16 00:00 Room Air 05/30/16 00:00 99.1 125 22 101/66 95 05/29/16 20:00 Room Air 05/29/16 16:18 99.1 112 20 135/87 97 I/O 05/29/16 05/29/16 05/29/16 05/30/16 05/30/16 05/30/16 07:00 15:00 23:00 07:00 15:00 23:00 Intake Total 956 ml 360 ml Output Total 1450 ml 1325 ml 830 ml Balance -1450 ml -1325 ml 126 ml 360 ml Intake Oral 956 ml 360 ml Output Urine Total 1450 ml 1325 ml 830 ml # Voids 2 # Bowel Movements 0 0 Result Diagram: 05/27/16 0940 05/27/16 0940 Imaging Last Impressions Chest X-Ray 05/25/16 0000 Signed Impressions: Service Date/Time: May 22:46 - CONCLUSION: Mild vascular congestion and bibasilar atelectasis. Roshan Jain MD Thoracic Spine MRI 05/24/16 0000 Signed Impressions: Service Date/Time: Tuesday, May 24, 2016 10:40 - CONCLUSION: 1. There is extensive bilateral paraspinal abscess extending from approximately T3-T9. The abnormality appears to be centered at the T5 level where there is vertebral body height loss and fluid and enhancement in the adjacent disc spaces suggesting discitis osteomyelitis. A portion of the abnormal fluid collection extends posteriorly on the left at C5-C6. 2. The right lower lobe airspace consolidation has a connection with the adjacent right paraspinal abscess. 3. No spinal canal stenosis is identified. There is mild epidural enhancement in the anterior epidural space at T5-T7 but no epidural abscess is appreciated. Roshan Galvez MD Lumbar Spine MRI 05/24/16 0000 Signed Impressions: Service Date/Time: Tuesday, May 24, 2016 10:40 - CONCLUSION: Significant change from prior exam. No definite acute findings. See above discussion. Roshan Jain MD Chest CT 05/24/16 0000 Signed Impressions: Service Date/Time: Tuesday, May 24, 2016 10:21 - CONCLUSION: 1. Abnormal bilateral paraspinal fluid collection extending from approximately T3-T8. The appearance is highly suggestive of a paraspinal abscess. 2. Focal air space consolidation in the medial right lower lobe abutting the paraspinal process. This likely represents focal lung infection with possible central necrosis. 3. Abnormal appearance of the kidneys suggesting interstitial nephritis or ATN. 4. Partially visualized upper abdomen suggests retroperitoneal lymphadenopathy. Roshan Galvez MD Objective Remarks GENERAL: No apparent distress, resting comfortably. HEAD: Atraumatic. Normocephalic. EYES: Pupils equal and round. No scleral icterus. No injection or drainage. ENT: No nasal bleeding or discharge. Mucous membranes pink and moist. NECK: Trachea midline. No JVD. CARDIOVASCULAR: Tachycardic. No murmur appreciated. RESPIRATORY: Bilateral crackles noted. GASTROINTESTINAL: Abdomen soft, non-tender, nondistended. Hepatic and splenic margins not palpable. MUSCULOSKELETAL: No obvious deformities. No clubbing. No cyanosis. No edema. BACK: Tender to palpation of upper back. Drain and bandages in place. NEUROLOGICAL: Awake and alert. No gross deficits. PSYCHIATRIC: Appropriate mood and affect; insight and judgment normal. Procedures T4-5 decompressive laminectomy, evacuation epidural abscess and granulation tissue Evacuation thoracic paraspinous abscess Medications and IVs Current Medications Medications (Trade) Dose Ordered Sig/Rony Route Start Time Stop Time Status Last Admin ([place] 5-325 Mg) 1 tab Q4H PRN PO 05/24/16 04:30 (Morphine Inj) 4 mg Q3H PRN IV 05/24/16 04:30 (Narcan Inj) 0.4 mg UNSCH PRN IV 05/24/16 04:30 (D50w (Vial) Inj) 25 ml UNSCH PRN IV PUSH 05/24/16 14:15 (Glucagon Inj) 1 mg UNSCH PRN OTHER 05/24/16 14:15 Albuterol Sulfate 2 puff 2 puff Q4H PRN INH 05/24/16 16:00 05/24/16 17:46 (Ancef 2 Gm Premix) 50 ml @ 100 mls/hr Q8H IV 05/25/16 17:00 05/30/16 09:18 (Colace) 100 mg BID PO 05/25/16 21:00 05/30/16 09:33 (Senokot) 17.2 mg DAILY PO 05/25/16 18:00 05/30/16 09:33 (NS Flush) 2 ml UNSCH PRN IVF 05/25/16 21:45 05/29/16 22:48 (NS Flush) 2 ml BID IVF 05/26/16 09:00 05/30/16 09:00 (Oramorph Sr) 30 mg Q12HR PO 05/26/16 21:00 05/30/16 09:33 (Dilaudid) 4 mg Q4H PRN PO 05/29/16 11:30 05/30/16 11:13 (Rifampin) 300 mg Q12HR PO 05/30/16 13:00 (Dilaudid Pf Inj) 1 mg Q4H PRN IV 05/30/16 14:41 UNV A/P Assessment and Plan Multiple infections/ Sepsis Thoracic spine MRI shows: There is extensive bilateral paraspinal abscess extending from approximately T3-T9; The abnormality appears to be centered at the T5 level where there is vertebral body height loss and fluid and enhancement in the adjacent disc spaces suggesting discitis osteomyelitis; A portion of the abnormal fluid collection extends posteriorly on the left at C5- C6; The right lower lobe airspace consolidation has a connection with the adjacent right paraspinal abscess. Lumbar spine MRI: Significant change from prior exam; No definite acute findings. Chest CT: Abnormal bilateral paraspinal fluid collection extending from approximately T3-T8; The appearance is highly suggestive of a paraspinal abscess; Focal air space consolidation in the medial right lower lobe abutting the paraspinal process; This likely represents focal lung infection with possible central necrosis. S/p T4-5 decompressive laminectomy, evacuation epidural abscess and granulation tissue; Evacuation thoracic paraspinous abscess 05/26. 3 out of 4 blood cultures grew MSSA. Repeat blood cultures are negative. Fluid culture also grew MSSA. - wound care, weightbearing and anticoagulation per neurosurgery. - antibiotics per ID. Will d/c vancomycin and continue cefazolin. Will need 6- 8 weeks of treatment followed by oral suppression. - pain control as needed with a bowel regimen. - physical therapy. - incentive spirometry. - Standing nebs per patient request. Anemia Likely s/t sepsis. - follow CBC. - treat underlying infections. - check Hemoccult. Hyperglycemia Blood sugar was elevated on admission. Likely a stress reaction. A1c 5.3%. - follow BMP as needed. IV drug abuse Last used 6 months ago. - Cessation instruction. Nicotine dependence The patient smokes 5 cigarettes daily. - Cessation instruction given. PPx: Per neurosurgery. Discharge Planning Per primary. Bryan Spaulding DO May 30, 2016 14:56
[2016-05-30 16:06] VITALS: BP 101/72; PULSE 114; RESP 20; TEMP 97.6; O2SAT 98
--- NOTE | 2016-05-30 18:11 | HHI.NSPN ---
History Chief Complaint: back pain Interval History 05/25/16: T4-T5 laminectomy, evacuation epidural and paraspinous abscess 05/29/16: Drain discontinued. Exam Results Vital Signs Date Time Temp Pulse Resp B/P Pulse Ox O2 Delivery O2 Flow Rate FiO2 05/30/16 16:06 97.6 114 20 101/72 98 05/30/16 00:00 Room Air 05/28/16 09:13 21 05/27/16 19:00 3.00 Intake and Output 05/29/16 05/29/16 05/30/16 08:00 16:00 00:00 Intake Total 956 ml Output Total 450 ml 1325 ml 830 ml Balance -450 ml -1325 ml 126 ml Physical Examination Alert, conversing and follows commands well. No apparent distress Neck: soft, supple, no meningismus or nuchal rigidity Motor: moves all major muscle groups of upper and lower extremities with 5/5 strength Sensation intact light touch all extremities Surgical wound with dry dressing in place, Medical Decision Making Impression and Plan Impression: Stable neurologic function status post thoracic laminectomy, evacuation epidural and paraspinous abscess Plan: Continue to mobilize out of bed with therapy Pain medications adjusted again at the request of the patient. Morphine discontinued. Infectious disease following. Continuing IV antibiotics Jeffry Pickard MD May 30, 2016 18:11
[2016-05-30] MEDS: RESP: ALBUTEROL 2.5 MG/IPRATROPIUM 0.5 MG NEB (SCH) NEB (20:31)
[2016-05-30 20:45] VITALS: BP 117/82; PULSE 106; RESP 20; TEMP 97.6; O2SAT 98
[2016-05-31] MEDS: ceFAZolin 2 GM PREMIX 50 ML IV SCH ×3 (01:22→17:48)
[2016-05-31] MEDS: HYDROmorphone HCL 4 MG TAB PO PRN ×6 (01:25→20:25)
[2016-05-31 07:57] LABS: HEMATOCRIT 28.6 % (39.0-51.0); MEAN CELL VOLUME 67.5 FL (80.0-100.0); MEAN CORPUSCULAR HEMOGLOBIN 22.6 PG (27.0-34.0); MEAN CORPUSCULAR HGB CONC 33.5 % (32.0-36.0); PLATELET COUNT 402 TH/MM3 (150-450); RED BLOOD COUNT 4.24 MIL/MM3 (4.50-5.90); RED CELL DISTRIBUTION WIDTH 20.6 % (11.6-17.2); WHITE BLOOD COUNT 10.7 TH/MM3 (4.0-11.0)
[2016-05-31 08:02] LABS: REVIEW FLAG FINAL
[2016-05-31 08:18] VITALS: BP 131/79; PULSE 107; RESP 19; TEMP 97.1; O2SAT 98
[2016-05-31 08:29] LABS: BICARBONATE 27.9 MEQ/L (21.0-32.0); INDIRECT BILIRUBIN 0.3 MG/DL (0.0-0.8); POTASSIUM 4.2 MEQ/L (3.5-5.1); TOTAL BILIRUBIN ADULT 0.5 MG/DL (0.2-1.0)
[2016-05-31] MEDS: SENNOSIDES 8.6 MG TAB PO SCH (08:40)
[2016-05-31] MEDS: DOCUSATE SODIUM 100 MG CAP PO SCH ×2 (08:40→20:24)
[2016-05-31] MEDS: HYDROmorphone HCL PF 1 MG/ML VIAL IV PRN ×4 (08:41→22:40)
[2016-05-31] MEDS: SODIUM CHLORIDE 0.9% FLUSH 5 ML FLUSH IVF SCH ×2 (08:42→21:00)
[2016-05-31] MEDS: RIFAMPIN 150 MG CAP PO SCH ×2 (08:42→20:24)
[2016-05-31] MEDS: ALBUTEROL SULFATE 90 MCG/ACT HFA 18 GM INHALER INH PRN (08:43)
[2016-05-31] MEDS: RESP: ALBUTEROL 2.5 MG/IPRATROPIUM 0.5 MG NEB (SCH) NEB ×3 (08:45→19:45)
--- NOTE | 2016-05-31 11:16 | HHI.PR ---
Subjective Remarks Patient reports is feeling okay except for being tired. He is ambulating with the help of a walker and the brace. No fevers or chills. Tolerating his diet. Objective Vitals Vital Signs Date Time Temp Pulse Resp B/P Pulse Ox O2 Delivery O2 Flow Rate FiO2 05/31/16 08:18 97.1 107 19 131/79 98 05/31/16 07:00 Room Air 05/31/16 06:14 18 05/30/16 20:45 97.6 106 20 117/82 98 05/30/16 16:06 97.6 114 20 101/72 98 05/30/16 12:04 98.1 116 20 127/89 99 I/O 05/30/16 05/30/16 05/30/16 05/31/16 05/31/16 05/31/16 07:00 15:00 23:00 07:00 15:00 23:00 Intake Total 360 ml 600 ml 800 ml Output Total 800 ml 700 ml Balance 360 ml 600 ml 0 ml -700 ml Intake Oral 360 ml 600 ml 800 ml Output Urine Total 800 ml 700 ml # Voids 2 3 # Bowel Movements 2 0 0 Result Diagram: 05/31/16 0709 05/31/16 0709 Imaging Last Impressions Chest X-Ray 05/25/16 0000 Signed Impressions: Service Date/Time: May 22:46 - CONCLUSION: Mild vascular congestion and bibasilar atelectasis. Roshan aJin MD Thoracic Spine MRI 05/24/16 0000 Signed Impressions: Service Date/Time: Tuesday, May 24, 2016 10:40 - CONCLUSION: 1. There is extensive bilateral paraspinal abscess extending from approximately T3-T9. The abnormality appears to be centered at the T5 level where there is vertebral body height loss and fluid and enhancement in the adjacent disc spaces suggesting discitis osteomyelitis. A portion of the abnormal fluid collection extends posteriorly on the left at C5-C6. 2. The right lower lobe airspace consolidation has a connection with the adjacent right paraspinal abscess. 3. No spinal canal stenosis is identified. There is mild epidural enhancement in the anterior epidural space at T5-T7 but no epidural abscess is appreciated. Roshan Galvez MD Lumbar Spine MRI 05/24/16 0000 Signed Impressions: Service Date/Time: Tuesday, May 24, 2016 10:40 - CONCLUSION: Significant change from prior exam. No definite acute findings. See above discussion. Roshan Jain MD Chest CT 05/24/16 0000 Signed Impressions: Service Date/Time: Tuesday, May 24, 2016 10:21 - CONCLUSION: 1. Abnormal bilateral paraspinal fluid collection extending from approximately T3-T8. The appearance is highly suggestive of a paraspinal abscess. 2. Focal air space consolidation in the medial right lower lobe abutting the paraspinal process. This likely represents focal lung infection with possible central necrosis. 3. Abnormal appearance of the kidneys suggesting interstitial nephritis or ATN. 4. Partially visualized upper abdomen suggests retroperitoneal lymphadenopathy. Roshan Galvez MD Objective Remarks GENERAL: This is a well-nourished, well-developed patient, in no apparent distress. CARDIOVASCULAR: Normal rate and regular rhythm without murmurs, gallops, or rubs. RESPIRATORY: Good respiratory efforts. Breath sounds equal and clear to auscultation bilaterally. GASTROINTESTINAL: Abdomen soft, non-tender, non-distended. Normal active bowel sounds MUSCULOSKELETAL: Postop dressing about the T4-9 appear clean and dry. No LE edema. NEURO: Alert & Oriented x4 to person, place, time, situation. Moves all ext x4 PSYCH: Appropriate mood and affect. Procedures T4-5 decompressive laminectomy, evacuation epidural abscess and granulation tissue Evacuation thoracic paraspinous abscess A/P Assessment and Plan 41-year-old male with: Multiple infections/ Sepsis Thoracic spine MRI shows: There is extensive bilateral paraspinal abscess extending from approximately T3-T9; The abnormality appears to be centered at the T5 level where there is vertebral body height loss and fluid and enhancement in the adjacent disc spaces suggesting discitis osteomyelitis; A portion of the abnormal fluid collection extends posteriorly on the left at C5- C6; The right lower lobe airspace consolidation has a connection with the adjacent right paraspinal abscess. Lumbar spine MRI: Significant change from prior exam; No definite acute findings. Chest CT: Abnormal bilateral paraspinal fluid collection extending from approximately T3-T8; The appearance is highly suggestive of a paraspinal abscess; Focal air space consolidation in the medial right lower lobe abutting the paraspinal process; This likely represents focal lung infection with possible central necrosis. S/p T4-5 decompressive laminectomy, evacuation epidural abscess and granulation tissue; Evacuation thoracic paraspinous abscess 05/26. 3 out of 4 blood cultures grew MSSA. Repeat blood cultures are negative. Fluid culture also grew MSSA. - wound care, weightbearing and anticoagulation per neurosurgery. - antibiotics per ID. currently on Ancef and rifampin. Will need 6-8 weeks of treatment followed by oral suppression per ID recommendations. - pain control as needed with a bowel regimen. - physical therapy. - incentive spirometry. - Standing nebs per patient request. Anemia Likely s/t sepsis. Postop. - follow CBC. - treat underlying infections. Hyperglycemia Blood sugar was elevated on admission. Likely a stress reaction. A1c 5.3%. - follow BMP as needed. IV drug abuse Last used 6 months ago. - Cessation instruction. Nicotine dependence The patient smokes 5 cigarettes daily. - Cessation instruction given. PPx: Per neurosurgery. Discharge Planning Per primary. Ananya Jimenes MD May 31, 2016 11:16
[2016-05-31 12:11] VITALS: BP 109/69; PULSE 104; RESP 19; TEMP 98.1; O2SAT 96
--- NOTE | 2016-05-31 12:12 | HHI.IDPN ---
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 Recently treated at [facility] for ?lung abscess and recurrent spinal abscess. Now with epidural abscess same area and possibly extending into lung. Notes reviewed No fever OR C/S with MSSA BC also with MSSA Repeat BC negative so far Echo report - good study, valves all look normal Sputum C/S MSSA ESR 65 CRP 13 Voiding ok Antibiotics Ancef Lines PIV Past Medical History Reviewed Allergies: Coded Allergies: Aspirin (Verified Allergy, Severe, 09/23/13) PATIENT STATES HE HAD A HOLE IN HIS HEART WHEN HE WAS BORN AND HE WAS TOLD NOT TO TAKE ASPIRIN. [facility] MAR STATES NO KNOWN ALLERGIES PATIENT DENIES ALLERGY TO ASPIRIN. 04/01/13 Objective . Vital Signs Date Time Temp Pulse Resp B/P Pulse Ox O2 Delivery O2 Flow Rate FiO2 05/31/16 08:18 97.1 107 19 131/79 98 05/31/16 07:00 Room Air 05/31/16 06:14 18 05/30/16 20:45 97.6 106 20 117/82 98 05/30/16 16:06 97.6 114 20 101/72 98 05/30/16 05/30/16 05/31/16 15:00 23:00 07:00 Intake Total 360 ml 600 ml 800 ml Output Total 800 ml Balance 360 ml 600 ml 0 ml Intake Oral 360 ml 600 ml 800 ml Output Urine Total 800 ml # Voids 2 3 # Bowel Movements 2 0 0 . Laboratory Tests Test 05/31/16 07:09 White Blood Count 10.7 TH/MM3 Red Blood Count 4.24 MIL/MM3 Hemoglobin 9.6 GM/DL Hematocrit 28.6 % Mean Corpuscular Volume 67.5 FL Mean Corpuscular Hemoglobin 22.6 PG Mean Corpuscular Hemoglobin 33.5 % Concent Red Cell Distribution Width 20.6 % Platelet Count 402 TH/MM3 Mean Platelet Volume 7.9 FL Laboratory Tests Test 05/31/16 07:09 Sodium Level 132 MEQ/L Potassium Level 4.2 MEQ/L Chloride Level 96 MEQ/L Carbon Dioxide Level 27.9 MEQ/L Anion Gap 8 MEQ/L Blood Urea Nitrogen 16 MG/DL Creatinine 0.71 MG/DL Estimat Glomerular Filtration 121 ML/MIN Rate Random Glucose 90 MG/DL Calcium Level 8.4 MG/DL Magnesium Level 2.0 MG/DL Total Bilirubin 0.5 MG/DL Direct Bilirubin 0.2 MG/DL Indirect Bilirubin 0.3 MG/DL Aspartate Amino Transf 10 U/L (AST/SGOT) Alanine Aminotransferase 7 U/L (ALT/SGPT) Alkaline Phosphatase 98 U/L Total Protein 7.8 GM/DL Albumin 1.8 GM/DL Imaging Thoracic Spine MRI 05/24/16 0000 Signed Impressions: Service Date/Time: Tuesday, May 24, 2016 10:40 - CONCLUSION: 1. There is extensive bilateral paraspinal abscess extending from approximately T3-T9. The abnormality appears to be centered at the T5 level where there is vertebral body height loss and fluid and enhancement in the adjacent disc spaces suggesting discitis osteomyelitis. A portion of the abnormal fluid collection extends posteriorly on the left at C5-C6. 2. The right lower lobe airspace consolidation has a connection with the adjacent right paraspinal abscess. 3. No spinal canal stenosis is identified. There is mild epidural enhancement in the anterior epidural space at T5-T7 but no epidural abscess is appreciated. Roshan Galvez MD Lumbar Spine MRI 05/24/16 0000 Signed Impressions: Service Date/Time: Tuesday, May 24, 2016 10:40 - CONCLUSION: Significant change from prior exam. No definite acute findings. See above discussion. Roshan Jain MD Chest CT 05/24/16 0000 Signed Impressions: Service Date/Time: Tuesday, May 24, 2016 10:21 - CONCLUSION: 1. Abnormal bilateral paraspinal fluid collection extending from approximately T3-T8. The appearance is highly suggestive of a paraspinal abscess. 2. Focal air space consolidation in the medial right lower lobe abutting the paraspinal process. This likely represents focal lung infection with possible central necrosis. 3. Abnormal appearance of the kidneys suggesting interstitial nephritis or ATN. 4. Partially visualized upper abdomen suggests retroperitoneal lymphadenopathy. Roshan Galvez MD Physical Exam GENERAL: awake and alert, NAD SKIN: Warm and dry. No generalized rash or ecchymosis. HEENT: [place] conjunctivae, no petechia or hemorrhage. No scleral icterus. No injection or drainage. Moist oral mucosa. NECK: Supple, nontender, no meningeal signs. CARDIOVASCULAR: Regular rate and rhythm without murmurs, gallops, or rubs. No murmur. RESPIRATORY: Clear to auscultation. Breath sounds equal bilaterally. He has few scattered rhonchi. Decreased at the bases. GASTROINTESTINAL: Abdomen soft, mildly tender, mildly distended. No guarding or rebound. Bowel sounds are present and normoactive. No organomegaly. MUSCULOSKELETAL: Extremities without clubbing, cyanosis, or edema. No joint tenderness, effusion. No calf tenderness. NEUROLOGICAL: Non-focal PSYCH: Normal affect, calm and cooperative. BACK: Dry incision LINE: PIV with no evidence of infection Assessment & Plan Remarks IMPRESSION Staph aureus sepsis due to spine infection - R/O endocarditis Paraspinal abscess/epidural abscess S/P OR Pneumonia, ?abscess Previous Rx for osteo thoracic, removal of toracic hardware last 2013, with MSSA Previous Rx MSSA osteo of spine 2011 Known IVDU RECOMMENDATION PICC Will need 6-8 weeks IV Abx from date of surgery - 6 weeks would be July 05 - 8 weeks would be July 19 - follow ESR to guide duration - then chronic oral suppression with Keflex or Dicloxacillin Labs weekly while on IV Abx: CBC, creat, LFT Monitor progress CM to arrange for IV Abx - ?home or SNF Genie Wadsworth MD May 31, 2016 12:12
[2016-05-31 16:29] VITALS: BP 107/69; PULSE 95; RESP 17; TEMP 97.3; O2SAT 96
[2016-05-31 20:00] VITALS: BP 127/83; PULSE 109; RESP 18; TEMP 99; O2SAT 97
--- NOTE | 2016-05-31 21:01 | HHI.NSPN ---
History Chief Complaint: back pain Interval History 05/25/16: T4-T5 laminectomy, evacuation epidural and paraspinous abscess 05/29/16: Drain discontinued. Exam Results Vital Signs Date Time Temp Pulse Resp B/P Pulse Ox O2 Delivery O2 Flow Rate FiO2 05/31/16 16:29 97.3 95 17 107/69 96 05/31/16 07:00 Room Air 05/28/16 09:13 21 05/27/16 19:00 3.00 Intake and Output 05/30/16 05/30/16 05/31/16 08:00 16:00 00:00 Intake Total 360 ml 600 ml Balance 360 ml 600 ml Physical Examination Alert, conversing and follows commands well. No apparent distress Neck: soft, supple, no meningismus or nuchal rigidity Motor: moves all major muscle groups of upper and lower extremities with 5/5 strength Sensation intact light touch all extremities Surgical wound with dry dressing in place, Lab, Micro, Other Results Laboratory Tests Test 05/31/16 07:09 White Blood Count 10.7 TH/MM3 Red Blood Count 4.24 MIL/MM3 Hemoglobin 9.6 GM/DL Hematocrit 28.6 % Mean Corpuscular Volume 67.5 FL Mean Corpuscular Hemoglobin 22.6 PG Mean Corpuscular Hemoglobin 33.5 % Concent Red Cell Distribution Width 20.6 % Platelet Count 402 TH/MM3 Mean Platelet Volume 7.9 FL Sodium Level 132 MEQ/L Potassium Level 4.2 MEQ/L Chloride Level 96 MEQ/L Carbon Dioxide Level 27.9 MEQ/L Anion Gap 8 MEQ/L Blood Urea Nitrogen 16 MG/DL Creatinine 0.71 MG/DL Estimat Glomerular Filtration 121 ML/MIN Rate Random Glucose 90 MG/DL Calcium Level 8.4 MG/DL Magnesium Level 2.0 MG/DL Total Bilirubin 0.5 MG/DL Direct Bilirubin 0.2 MG/DL Indirect Bilirubin 0.3 MG/DL Aspartate Amino Transf 10 U/L (AST/SGOT) Alanine Aminotransferase 7 U/L (ALT/SGPT) Alkaline Phosphatase 98 U/L Total Protein 7.8 GM/DL Albumin 1.8 GM/DL Medical Decision Making Impression and Plan Impression: Stable neurologic function status post thoracic laminectomy, evacuation epidural and paraspinous abscess Plan: Continue to mobilize out of bed with therapy Pain medications adjusted again at the request of the patient. Morphine started again, he states that he is not having adequate pain control off the morphine. He has requested additional hydromorphone but I have advised him that this will not be increased at this time. Infectious disease following. Continuing IV antibiotics Jeffry Pickard MD May 31, 2016 21:01
[2016-05-31] MEDS: MORPHINE SULFATE 15 MG CONTROLLED RELEASE TAB PO SCH (21:10)
[2016-06-01] VITALS: BP 137/81; PULSE 115; RESP 18; TEMP 97.4; O2SAT 97
[2016-06-01] MEDS: ceFAZolin 2 GM PREMIX 50 ML IV SCH ×3 (01:16→18:52)
[2016-06-01] MEDS: HYDROmorphone HCL 4 MG TAB PO PRN ×5 (01:17→20:03)
[2016-06-01 04:00] VITALS: BP 140/91; PULSE 116; RESP 18; TEMP 98.7; O2SAT 94
[2016-06-01] MEDS: HYDROmorphone HCL PF 1 MG/ML VIAL IV PRN ×6 (04:53→22:28)
[2016-06-01 08:00] VITALS: BP 117/84; PULSE 130; RESP 20; TEMP 97.8; O2SAT 98
[2016-06-01 08:05] LABS: HEMATOCRIT 28.4 % (39.0-51.0); MEAN CELL VOLUME 67.5 FL (80.0-100.0); MEAN CORPUSCULAR HEMOGLOBIN 22.3 PG (27.0-34.0); PLATELET COUNT 426 TH/MM3 (150-450); RED CELL DISTRIBUTION WIDTH 20.2 % (11.6-17.2); WHITE BLOOD COUNT 9.1 TH/MM3 (4.0-11.0)
[2016-06-01 08:06] LABS: REVIEW FLAG FINAL
[2016-06-01 08:18] LABS: POTASSIUM 4.3 MEQ/L (3.5-5.1)
[2016-06-01] MEDS: RESP: ALBUTEROL 2.5 MG/IPRATROPIUM 0.5 MG NEB (SCH) NEB ×2 (08:26→13:30)
[2016-06-01] MEDS: DOCUSATE SODIUM 100 MG CAP PO SCH ×2 (08:40→20:04)
[2016-06-01] MEDS: SENNOSIDES 8.6 MG TAB PO SCH (08:40)
[2016-06-01] MEDS: MORPHINE SULFATE 15 MG CONTROLLED RELEASE TAB PO SCH ×2 (08:41→20:04)
[2016-06-01] MEDS: RIFAMPIN 150 MG CAP PO SCH ×2 (08:41→20:03)
[2016-06-01] MEDS: SODIUM CHLORIDE 0.9% FLUSH 5 ML FLUSH IVF SCH ×2 (09:00→20:07)
--- NOTE | 2016-06-01 09:35 | HHI.PR ---
Subjective Remarks Patient complained of persistent pain. Dilaudid is helping. Had issues with IV access this morning. Objective Vitals Vital Signs Date Time Temp Pulse Resp B/P Pulse Ox O2 Delivery O2 Flow Rate FiO2 06/01/16 08:00 97.8 130 20 117/84 98 06/01/16 04:00 98.7 116 18 140/91 94 06/01/16 00:00 97.4 115 18 137/81 97 05/31/16 21:10 Room Air 05/31/16 20:00 99.0 109 18 127/83 97 05/31/16 16:29 97.3 95 17 107/69 96 05/31/16 12:11 98.1 104 19 109/69 96 I/O 05/31/16 05/31/16 05/31/16 06/01/16 06/01/16 06/01/16 07:00 15:00 23:00 07:00 15:00 23:00 Intake Total 800 ml 650 ml 540 ml Output Total 800 ml 700 ml 200 ml Balance 0 ml -700 ml 450 ml 540 ml Intake Oral 800 ml 650 ml 480 ml IV Total 60 ml Output Urine Total 800 ml 700 ml 200 ml # Voids 2 3 # Bowel Movements 0 Result Diagram: 06/01/1672606/01/16726 Objective Remarks GENERAL: This is a well-nourished, well-developed patient, in no apparent distress. CARDIOVASCULAR: Normal rate and regular rhythm without murmurs, gallops, or rubs. RESPIRATORY: Good respiratory efforts. Breath sounds equal and clear to auscultation bilaterally. GASTROINTESTINAL: Abdomen soft, non-tender, non-distended. Normal active bowel sounds MUSCULOSKELETAL: Postop dressing about the T4-9 appear clean and dry. No LE edema. NEURO: Alert & Oriented x4 to person, place, time, situation. Moves all ext x4 PSYCH: Appropriate mood and affect. Procedures T4-5 decompressive laminectomy, evacuation epidural abscess and granulation tissue Evacuation thoracic paraspinous abscess A/P Assessment and Plan 41-year-old male with: Multiple infections/ Sepsis Thoracic spine MRI shows: There is extensive bilateral paraspinal abscess extending from approximately T3-T9; The abnormality appears to be centered at the T5 level where there is vertebral body height loss and fluid and enhancement in the adjacent disc spaces suggesting discitis osteomyelitis; A portion of the abnormal fluid collection extends posteriorly on the left at C5- C6; The right lower lobe airspace consolidation has a connection with the adjacent right paraspinal abscess. Lumbar spine MRI: Significant change from prior exam; No definite acute findings. Chest CT: Abnormal bilateral paraspinal fluid collection extending from approximately T3-T8; The appearance is highly suggestive of a paraspinal abscess; Focal air space consolidation in the medial right lower lobe abutting the paraspinal process; This likely represents focal lung infection with possible central necrosis. S/p T4-5 decompressive laminectomy, evacuation epidural abscess and granulation tissue; Evacuation thoracic paraspinous abscess 05/26. 3 out of 4 blood cultures grew MSSA. Repeat blood cultures are negative. Fluid culture also grew MSSA. - wound care, weightbearing and anticoagulation per neurosurgery. - antibiotics per ID. currently on Ancef and rifampin. Will need 6-8 weeks of treatment followed by oral suppression per ID recommendations. - pain control as needed with a bowel regimen. - physical therapy. - incentive spirometry. - Breathing treatments as needed. Anemia Likely s/t sepsis. Postop. - follow CBC. - treat underlying infections. Hyperglycemia Blood sugar was elevated on admission. Likely a stress reaction. A1c 5.3%. - follow BMP as needed. IV drug abuse: Cautious with Narcotics with this patient. I discussed with the patient to try to wean off pain medications Last used 6 months ago. - Cessation instruction. Nicotine dependence The patient smokes 5 cigarettes daily. - Cessation instruction given. PPx: Per neurosurgery. Discharge Planning Per primary. Ananya Jimenes MD Jun 01, 2016 09:35
[2016-06-01] MEDS ORDERED: SODIUM CHLORIDE 0.9% FLUSH 10 ML FLUSH IV FLUSH PRN (10:15)
[2016-06-01 12:20] VITALS: BP 123/77; PULSE 116; RESP 20; TEMP 98.3; O2SAT 98
--- NOTE | 2016-06-01 12:42 | HHI.IDPN ---
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 Recently treated at [facility] for ?lung abscess and recurrent spinal abscess. Now with epidural abscess same area and possibly extending into lung. Notes reviewed Vascular team unable to place PICC C/P pain No fever OR C/S with MSSA BC also with MSSA Repeat BC negative so far Echo report - good study, valves all look normal Sputum C/S MSSA ESR 65 CRP 13 Voiding ok Antibiotics Ancef Rifampin Lines PIV Past Medical History Reviewed Allergies: Coded Allergies: Aspirin (Verified Allergy, Severe, 09/23/13) PATIENT STATES HE HAD A HOLE IN HIS HEART WHEN HE WAS BORN AND HE WAS TOLD NOT TO TAKE ASPIRIN. [facility] STATES NO KNOWN ALLERGIES PATIENT DENIES ALLERGY TO ASPIRIN. 04/01/13 Objective . Vital Signs Date Time Temp Pulse Resp B/P Pulse Ox O2 Delivery O2 Flow Rate FiO2 06/01/16 12:20 98.3 116 20 123/77 98 06/01/16 08:00 97.8 130 20 117/84 98 06/01/16 04:00 98.7 116 18 140/91 94 06/01/16 00:00 97.4 115 18 137/81 97 05/31/16 21:10 Room Air 05/31/16 20:00 99.0 109 18 127/83 97 05/31/16 16:29 97.3 95 17 107/69 96 05/31/16 05/31/16 06/01/16 15:00 23:00 07:00 Intake Total 650 ml 540 ml Output Total 700 ml 200 ml Balance -700 ml 450 ml 540 ml Intake Oral 650 ml 480 ml IV Total 60 ml Output Urine Total 700 ml 200 ml # Voids 2 3 . Laboratory Tests Test 05/31/16 06/01/16 07:09 07:27 White Blood Count 10.7 TH/MM3 9.1 TH/MM3 Red Blood Count 4.24 MIL/MM3 4.20 MIL/MM3 Hemoglobin 9.6 GM/DL 9.4 GM/DL Hematocrit 28.6 % 28.4 % Mean Corpuscular Volume 67.5 FL 67.5 FL Mean Corpuscular Hemoglobin 22.6 PG 22.3 PG Mean Corpuscular Hemoglobin 33.5 % 33.0 % Concent Red Cell Distribution Width 20.6 % 20.2 % Platelet Count 402 TH/MM3 426 TH/MM3 Mean Platelet Volume 7.9 FL 7.8 FL Laboratory Tests Test 05/31/16 06/01/16 07:09 07:27 Sodium Level 132 MEQ/L 129 MEQ/L Potassium Level 4.2 MEQ/L 4.3 MEQ/L Chloride Level 96 MEQ/L 94 MEQ/L Carbon Dioxide Level 27.9 MEQ/L 27.0 MEQ/L Anion Gap 8 MEQ/L 8 MEQ/L Blood Urea Nitrogen 16 MG/DL 13 MG/DL Creatinine 0.71 MG/DL 0.68 MG/DL Estimat Glomerular Filtration 121 ML/MIN 127 ML/MIN Rate Random Glucose 90 MG/DL 105 MG/DL Calcium Level 8.4 MG/DL 8.5 MG/DL Magnesium Level 2.0 MG/DL Total Bilirubin 0.5 MG/DL Direct Bilirubin 0.2 MG/DL Indirect Bilirubin 0.3 MG/DL Aspartate Amino Transf 10 U/L (AST/SGOT) Alanine Aminotransferase 7 U/L (ALT/SGPT) Alkaline Phosphatase 98 U/L Total Protein 7.8 GM/DL Albumin 1.8 GM/DL Imaging Thoracic Spine MRI 05/24/16 0000 Signed Impressions: Service Date/Time: Tuesday, May 24, 2016 10:40 - CONCLUSION: 1. There is extensive bilateral paraspinal abscess extending from approximately T3-T9. The abnormality appears to be centered at the T5 level where there is vertebral body height loss and fluid and enhancement in the adjacent disc spaces suggesting discitis osteomyelitis. A portion of the abnormal fluid collection extends posteriorly on the left at C5-C6. 2. The right lower lobe airspace consolidation has a connection with the adjacent right paraspinal abscess. 3. No spinal canal stenosis is identified. There is mild epidural enhancement in the anterior epidural space at T5-T7 but no epidural abscess is appreciated. Roshan Galvez MD Lumbar Spine MRI 05/24/16 0000 Signed Impressions: Service Date/Time: Tuesday, May 24, 2016 10:40 - CONCLUSION: Significant change from prior exam. No definite acute findings. See above discussion. Roshan Jain MD Chest CT 05/24/16 0000 Signed Impressions: Service Date/Time: Tuesday, May 24, 2016 10:21 - CONCLUSION: 1. Abnormal bilateral paraspinal fluid collection extending from approximately T3-T8. The appearance is highly suggestive of a paraspinal abscess. 2. Focal air space consolidation in the medial right lower lobe abutting the paraspinal process. This likely represents focal lung infection with possible central necrosis. 3. Abnormal appearance of the kidneys suggesting interstitial nephritis or ATN. 4. Partially visualized upper abdomen suggests retroperitoneal lymphadenopathy. Roshan Galvez MD Physical Exam GENERAL: awake and alert, NAD SKIN: Warm and dry. No generalized rash or ecchymosis. HEENT: [place] conjunctivae, no petechia or hemorrhage. No scleral icterus. No injection or drainage. Moist oral mucosa. NECK: Supple, nontender, no meningeal signs. CARDIOVASCULAR: Regular rate and rhythm without murmurs, gallops, or rubs. No murmur. RESPIRATORY: Clear to auscultation. Breath sounds equal bilaterally. He has few scattered rhonchi. Decreased at the bases. GASTROINTESTINAL: Abdomen soft, mildly tender, mildly distended. No guarding or rebound. Bowel sounds are present and normoactive. No organomegaly. MUSCULOSKELETAL: Extremities without clubbing, cyanosis, or edema. No joint tenderness, effusion. No calf tenderness. NEUROLOGICAL: Non-focal PSYCH: Normal affect, calm and cooperative. BACK: Dry incision LINE: PIV with no evidence of infection Assessment & Plan Remarks IMPRESSION Staph aureus sepsis due to recurrent spine infection Paraspinal abscess/epidural abscess S/P OR Pneumonia, ?abscess Previous Rx for osteo thoracic, removal of toracic hardware last 2013, with MSSA Previous Rx MSSA osteo of spine 2011 Known IVDU RECOMMENDATION Will ask IR to place Caro Continue Ancef and Rifampin Will need 6-8 weeks IV Abx from date of surgery - 6 weeks would be July 05 - 8 weeks would be July 19 - follow ESR to guide duration - then chronic oral suppression with Keflex or Dicloxacillin Labs weekly while on IV Abx: CBC, creat, LFT Monitor progress CM to arrange for IV Abx - ?home or SNF Genie Wadsworth MD Jun 01, 2016 12:42
[2016-06-01] MEDS ORDERED: RESP: ALBUTEROL 2.5 MG/IPRATROPIUM 0.5 MG NEB (PRN) NEB (16:30)
[2016-06-01 16:39] VITALS: BP 124/85; PULSE 113; RESP 20; TEMP 98.9; O2SAT 98
[2016-06-01] MEDS ORDERED: VANCOMYCIN HCL 1000 MG VIAL ONE (17:11)
[2016-06-01] MEDS ORDERED: fentaNYL CITRATE 250 MCG/5 ML AMP ONE (17:11)
[2016-06-01] MEDS ORDERED: LORazepam 2 MG/ML VIAL ONE (17:11)
[2016-06-01] MEDS ORDERED: LIDOCAINE 1%/EPINEPHrine 1:100,000 SOLN 20 ML VIAL ONE (17:19)
--- NOTE | 2016-06-01 18:27 | PD.RAD ---
Post Procedure Progress Note Pre Procedure Diagnosis: (1) Osteomyelitis (2) Epidural abscess (3) Intravenous drug abuse in remission Post Procedure Diagnosis: (1) Osteomyelitis (2) Epidural abscess (3) Intravenous drug abuse in remission Procedure Date: Jun 01, 2016 Supervising Radiologist: Valentin Narvaez Proceduralist/Assist: Britney Haney, RT(R), Denae Mejias, RT(R)(), Cami Warren, RT(R) Anesthesia: Local, Analgesia Plan of Activity Patient to Unit: Nursing Unit Patient Condition: Good See PACS Report for procedural detail/treatment Central Venous Access Device Procedure 1 Right Internal Jugular Tunneled Central Line (tellez) Placement dual lumen ((Single lumen device was damaged. Only one in stock. Had to place 2-lumen catheter)) Maltese: 9 Valentin Narvaez MD Jun 01, 2016 18:27
[2016-06-01] MEDS ORDERED: SODIUM CHLORIDE 0.9% FLUSH 10 ML FLUSH IVF PRN (18:30)
--- NOTE | 2016-06-01 19:21 | HHI.NSPN ---
(Darrion Garcia) Note Status Status: Progress Note (Darrion Garcia) Interval History Diagnosis 1. Thoracic paraspinal abscess primarily T3-T9 levels 2. Thoracic osteomyelitis primarily T5 level the significant bone destruction Interval History 05/25/16: T4-T5 laminectomy, evacuation epidural and paraspinous abscess 05/29/16: Drain discontinued. 06/01/16: Caro catheter placed. Patient states he is doing all right when seen this evening. (Darrion Garcia) Labs, Micro, & Vital Signs Results Allergies Coded Allergies Type Severity Reaction Last Updated Verified Aspirin Allergy Severe 09/23/13 Yes 05/30//18/174/19/174//174// 06:00 18:00 06:00 18:00 06:00 18:00 Intake Total 720 ml 360 ml 600 ml 800 ml 1130 ml 780 ml Output Total 830 ml 1700 ml 900 ml Balance -110 ml 360 ml 600 ml -900 ml 1130 ml -120 ml Intake Oral 720 ml 360 ml 600 ml 800 ml 1130 ml 720 ml IV Total 60 ml Output Urine Total 830 ml 1700 ml 900 ml # Voids 2 3 5 # Bowel Movements 0 2 0 0 1 Laboratory Tests Test 05/31/16 06/01/16 07:09 07:27 White Blood Count 10.7 TH/MM3 9.1 TH/MM3 Red Blood Count 4.24 MIL/MM3 4.20 MIL/MM3 Hemoglobin 9.6 GM/DL 9.4 GM/DL Hematocrit 28.6 % 28.4 % Mean Corpuscular Volume 67.5 FL 67.5 FL Mean Corpuscular Hemoglobin 22.6 PG 22.3 PG Mean Corpuscular Hemoglobin 33.5 % 33.0 % Concent Red Cell Distribution Width 20.6 % 20.2 % Platelet Count 402 TH/MM3 426 TH/MM3 Mean Platelet Volume 7.9 FL 7.8 FL Sodium Level 132 MEQ/L 129 MEQ/L Potassium Level 4.2 MEQ/L 4.3 MEQ/L Chloride Level 96 MEQ/L 94 MEQ/L Carbon Dioxide Level 27.9 MEQ/L 27.0 MEQ/L Anion Gap 8 MEQ/L 8 MEQ/L Blood Urea Nitrogen 16 MG/DL 13 MG/DL Creatinine 0.71 MG/DL 0.68 MG/DL Estimat Glomerular Filtration 121 ML/MIN 127 ML/MIN Rate Random Glucose 90 MG/DL 105 MG/DL Calcium Level 8.4 MG/DL 8.5 MG/DL Magnesium Level 2.0 MG/DL Total Bilirubin 0.5 MG/DL Direct Bilirubin 0.2 MG/DL Indirect Bilirubin 0.3 MG/DL Aspartate Amino Transf 10 U/L (AST/SGOT) Alanine Aminotransferase 7 U/L (ALT/SGPT) Alkaline Phosphatase 98 U/L Total Protein 7.8 GM/DL Albumin 1.8 GM/DL Procedure Category Date Status Time Rifampin (Rifampin) MED 05/30/16 In Process 13:00 Hepatic Functional LAB 05/31/16 Complete Panel 06:00 Hydromorphone Pf Inj MED 05/30/16 In Process (Dilaudid Pf Inj) 14:41 Albuterol-Ipratropium MED 05/30/16 Complete Neb (Duoneb Neb) 14:45 Diet Regular Basic DIET 05/30/16 Complete Dinner Magnesium (Mg) LAB 05/31/16 Complete 06:00 Basic Metabolic Panel LAB 05/31/16 Complete (Bmp) 06:00 Cbc No Diff, Includes LAB 05/31/16 Complete Plts 06:00 Hydromorphone MED 05/30/16 In Process (Dilaudid) 20:00 Acetamin-Hydrocod MED 05/30/16 In Process 325-10 Mg (Mercedita 10-32 18:00 Cbc No Diff, Includes LAB 06/01/16 Complete Plts 06:00 Basic Metabolic Panel LAB 06/01/16 Complete (Bmp) 06:00 Vascular Access Team KIRK 05/31/16 In Process Consult/P 12:10 Vascular Poc IMGUS 05/31/16 Taken Ultrasound Morphine Sr (Oramorph MED 05/31/16 In Process Sr) 21:15 ^ Instruction KIRK 05/31/16 In Process 23:08 Sodium Chloride 0.9% MED 06/02/16 In Process Flush (Ns Flush) 09:00 Sodium Chloride 0.9% MED 06/01/16 In Process Flush (Ns Flush) 10:15 Heparin Central Flush MED 06/02/16 In Process (Heparin Central F 09:00 Heparin Central Flush MED 06/01/16 In Process (Heparin Central F 10:15 Sodium Chloride 0.9% MED 06/01/16 In Process Flush (Ns Flush) 10:15 Caro Catheter RADINV 06/01/16 Taken Placement (Hub Use Only)Inp Phy CONS 06/01/16 Transmitted Cons/Ref Albuterol-Ipratropium MED 06/01/16 In Process Neb (Duoneb Neb) 16:30 Lorazepam Inj (Ativan MED 06/01/16 Complete Inj) 17:11 Fentanyl Inj MED 06/01/16 Complete (Fentanyl Inj) 17:11 Vancomycin Inj MED 06/01/16 Complete (Vancomycin Inj) 17:11 *Heparin Central MED 06/01/16 Complete Flush (*Heparin 17:18 Lidocai-Epi MED 06/01/16 Complete 1%-1:100,000 Inj 17:19 Aspiration, Sc Jt RADINV 06/01/16 Taken Vital Signs (Adult) KIRK 06/01/16 In Process 18:19 Activity Bed Rest KIRK 06/01/16 In Process 18:[address]: Other KIRK 06/01/16 In Process 18:19 ^ Apply Pressure KIRK 06/01/16 In Process 18:19 ^ IV KIRK 06/01/16 In Process 18:19 Diet Regular Basic DIET 06/01/16 Transmitted Dinner Sodium Chloride 0.9% MED 06/02/16 In Process Flush (Ns Flush) 09:00 Heparin Central Flush MED 06/02/16 In Process (Heparin Central F 09:00 Sodium Chloride 0.9% MED 06/01/16 In Process Flush (Ns Flush) 18:30 Heparin Central Flush MED 06/01/16 In Process (Heparin Central F 18:30 Fluid Culture And AUGUSTINE 06/01/16 In Process Gram Stain 18:21 Vital Signs Date Time Temp Pulse Resp B/P Pulse Ox O2 Delivery O2 Flow Rate FiO2 06/01/16 16:39 98.9 113 20 124/85 98 06/01/16 12:20 98.3 116 20 123/77 98 06/01/16 08:00 97.8 130 20 117/84 98 06/01/16 04:00 98.7 116 18 140/91 94 06/01/16 00:00 97.4 115 18 137/81 97 05/31/16 21:10 Room Air 05/31/16 20:00 99.0 109 18 127/83 97 05/31/16 16:29 97.3 95 17 107/69 96 05/31/16 12:11 98.1 104 19 109/69 96 05/31/16 08:18 97.1 107 19 131/79 98 05/31/16 07:00 Room Air 05/31/16 06:14 18 05/30/16 20:45 97.6 106 20 117/82 98 05/30/16 16:06 97.6 114 20 101/72 98 05/30/16 12:04 98.1 116 20 127/89 99 05/30/16 08:01 98.6 102 20 111/68 98 05/30/16 07:00 Room Air 05/30/16 06:12 97.9 22 88/50 96 100/58 05/30/16 00:00 Room Air 05/30/16 00:00 99.1 125 22 101/66 95 05/29/16 20:00 Room Air Date Time Temp Pulse Resp B/P Pulse Ox O2 Delivery O2 Flow Rate FiO2 06/01/16 16:39 98.9 113 20 124/85 98 06/01/16 12:20 98.3 116 20 123/77 98 06/01/16 08:00 97.8 130 20 117/84 98 06/01/16 04:00 98.7 116 18 140/91 94 06/01/16 00:00 97.4 115 18 137/81 97 05/31/16 21:10 Room Air 05/31/16 20:00 99.0 109 18 127/83 97 06/01/16 07:00 Intake Total 1190 ml Output Total 900 ml Balance 290 ml Constitutional Vital Signs Date Time Temp Pulse Resp B/P Pulse Ox O2 Delivery O2 Flow Rate FiO2 06/01/16 16:39 98.9 113 20 124/85 98 06/01/16 12:20 98.3 116 20 123/77 98 06/01/16 08:00 97.8 130 20 117/84 98 06/01/16 04:00 98.7 116 18 140/91 94 06/01/16 00:00 97.4 115 18 137/81 97 05/31/16 21:10 Room Air 05/31/16 20:00 99.0 109 18 127/83 97 06/01/16 07:00 Intake Total 1190 ml Output Total 900 ml Balance 290 ml (Darrion Garcia) Review of Systems/Exam ROS Neuro: Denies any headache, dizziness, numbness, tingling or weakness. Respiratory: Denies any shortness of breath. CV: Denies any chest pain or racing heart. GI: Denies any abdominal pain, nausea, vomiting or bowel incontinence. : Denies any bladder incontinence. Back: Denies any back pain. Patient does qualify ROS at end by stating he doesn't have "anything I ain't had before." Exam Resp: CTAB w/o W/R/R, equal excursion, nonlaboured, on RA. CV: RRR but fast, w/o M/G/R, radial & pedal pulses 2+ bilaterally, cap refill < 2 sec, no pedal edema. GI: Abdomen soft, nontender, positive bowel sounds. Exam limited due to TLSO brace. MS: In TLSO brace. Extremities normal, w/o clubbing, discolouration or deformity. Neuro: AAOx3, speech clear & appropriate, follows commands, sensation grossly intact to light touch all extremities, motor strength essentially 5/5 to BUE & BLE except for LUE deltoid slightly decreased due to pain from IV infiltration. Neck: Soft, supple, no meningismus or nuchal rigidity. (Darrion Garcia) Medications Current Medications Current Medications Medications (Trade) Dose Ordered Sig/Royn Route Start Time Stop Time Status Last Admin (Narcan Inj) 0.4 mg UNSCH PRN IV 05/24/16 04:30 (D50w (Vial) Inj) 25 ml UNSCH PRN IV PUSH 05/24/16 14:15 (Glucagon Inj) 1 mg UNSCH PRN OTHER 05/24/16 14:15 Albuterol Sulfate 2 puff 2 puff Q4H PRN INH 05/24/16 16:00 05/31/16 08:43 (Ancef 2 Gm Premix) 50 ml @ 100 mls/hr Q8H IV 05/25/16 17:00 06/01/16 18:52 (Colace) 100 mg BID PO 05/25/16 21:00 06/01/16 08:40 (Senokot) 17.2 mg DAILY PO 05/25/16 18:00 06/01/16 08:40 (NS Flush) 2 ml UNSCH PRN IVF 05/25/16 21:45 05/29/16 22:48 (NS Flush) 2 ml BID IVF 05/26/16 09:00 06/01/16 09:00 (Rifampin) 300 mg Q12HR PO 05/30/16 13:00 06/01/16 08:41 (Dilaudid Pf Inj) 1 mg Q4H PRN IV 05/30/16 14:41 06/01/16 18:54 (Dilaudid) 4 mg Q3H PRN PO 05/30/16 20:00 06/01/16 14:39 (Mercedita 10-325 Mg) 1 tab Q4H PRN PO 05/30/16 18:00 (Oramorph Sr) 15 mg Q12HR PO 05/31/16 21:15 06/01/16 08:41 (NS Flush) See Protocol DAILY IV FLUSH 06/02/16 09:00 (NS Flush) See Protocol UNSCH PRN IV FLUSH 06/01/16 10:15 (Heparin Central Flush) See Protocol DAILY IV FLUSH 06/02/16 09:00 (Heparin Central Flush) See Protocol UNSCH PRN IV FLUSH 06/01/16 10:15 (NS Flush) UNSCH PRN IV FLUSH 06/01/16 10:15 (NS Flush) DAILY IVF 06/02/16 09:00 (Heparin Central Flush) DAILY IV FLUSH 06/02/16 09:00 (NS Flush) UNSCH PRN IVF 06/01/16 18:30 (Heparin Central Flush) UNSCH PRN IV FLUSH 06/01/16 18:30 (Darrion Garcia) Medical Decision Making MDM Remarks 1. Thoracic paraspinal abscess primarily T3-T9 levels 2. Thoracic osteomyelitis primarily T5 level with significant bone destruction 3. Stable neurologic function status post thoracic laminectomy, evacuation epidural and paraspinous abscess (Darrion Garcia) Plan Plan Remarks Plan of care discussed with patient. PT & OT. Brace when OOB. Antibiotics per Infectious Disease. Will most likely need mid thoracic spine reconstruction & fusion surgery following completion of antibiotics. Continue present pain medication regimen. (Darrion Garcia) Attending Statement I have personally seen and examined the patient on the date of this note. Pertinent documentation and study results have been reviewed by the undersigned. I have personally developed the treatment plan and performed medical decision making. Agree with findings, exam, and treatment plan as noted above. (Jeffry Pickard MD) Darrion Garcia Jun 01, 2016 19:21 Jeffry Pickard MD Jun 02, 2016 19:25 Darrion Garcia Jun 01, 2016 19:21
[2016-06-01 21:18] VITALS: BP 124/79; PULSE 115; RESP 18; TEMP 99.2; O2SAT 95
[2016-06-02] MEDS: ceFAZolin 2 GM PREMIX 50 ML IV SCH ×3 (01:57→17:09)
[2016-06-02] MEDS: HYDROmorphone HCL 4 MG TAB PO PRN ×7 (01:57→22:13)
[2016-06-02] MEDS: HYDROmorphone HCL PF 1 MG/ML VIAL IV PRN ×4 (02:55→20:57)
[2016-06-02 08:00] VITALS: BP 133/87; PULSE 112; RESP 20; TEMP 97.9; O2SAT 97
[2016-06-02] MEDS: SENNOSIDES 8.6 MG TAB PO SCH (08:53)
[2016-06-02] MEDS: MORPHINE SULFATE 15 MG CONTROLLED RELEASE TAB PO SCH ×2 (08:54→20:58)
[2016-06-02] MEDS: RIFAMPIN 150 MG CAP PO SCH ×2 (08:55→20:57)
[2016-06-02] MEDS: DOCUSATE SODIUM 100 MG CAP PO SCH ×2 (08:56→20:58)
[2016-06-02] MEDS: SODIUM CHLORIDE 0.9% FLUSH 10 ML FLUSH IV FLUSH SCH (08:57)
[2016-06-02] MEDS: SODIUM CHLORIDE 0.9% FLUSH 5 ML FLUSH IVF SCH ×2 (09:00→20:58)
[2016-06-02] MEDS: SODIUM CHLORIDE 0.9% FLUSH 10 ML FLUSH IVF SCH (09:00)
--- NOTE | 2016-06-02 09:43 | RADRPT ---
EXAM DATE/TIME: 06/01/2016 16:59 [place] COMPARISON: No previous studies available for comparison. INDICATIONS : Patient with history of thoracic discitis-osteomyelitis in need of aspiration. MEDICAL HISTORY : IVDU, Pulmonary infection, Thoracic discitis-osteomyelitis SURGICAL HISTORY : Drainage pulmonary abscess ENCOUNTER: Initial ACUITY: 1 week PAIN SCORE: 7/10 LOCATION: mid back FLUORO TIME: IMAGE SERIES: MEDICATION(S): 1.) 2 mg Ativan IV 2.) 150 mcg Fentanyl IV DEVICE(S): 18 gauge needle was placed into the right sacroiliac joint. RESPONSE: Pre procedure pain level was 7/10 Post procedure pain level was 7/10 FLUID: Total volume of10 cc of cloudy yellow fluid was removed. Fluid specimen was submitted to the lab for evaluation. PROCEDURE : 1. Fluoroscopically guided right chest wall aspiration (overlying the right SC joint). During operation for the patient's Caro catheter placement, it was noted there was a fluctuant are a over the right chest in the region of the sternoclavicular joint. No associated erythema. Ultrasoun d evaluation showed a complex fluid collection which did not appear to communicate with the joint its elf. The risks, benefits and alternatives to the procedure were explained and verbal and written consent w as obtained. The site was prepped in sterile fashion. Full sterile technique was used, including ca p, mask, sterile gloves and gown and a large sterile sheet. Hand hygiene and 2% chlorhexidine and/or betadine/alcohol prep was utilized per protocol for cutaneous antisepsis. The skin and subcutaneous tissues were infiltrated with local anesthetic solution. A 20 gauge needle was advanced into the collection. A total of 10 cc of cloudy yellow fluid was remov ed and sent to laboratory for analysis The patient tolerated the procedure well and there were no complications. CONCLUSION: Uncomplicated aspiration as above. Valentin Narvaez MD on June 02, 2016 at 9:39 Board Certified Radiologist. This report was verified electronically.
--- NOTE | 2016-06-02 09:43 | RADRPT ---
EXAM DATE/TIME: 06/01/2016 17:20 [facility] COMPARISON: No previous studies available for comparison. INDICATIONS : Patient with history of thoracic discitis-osteomyelitis in need of tunnelled caro catheter placeme nt MEDICAL HISTORY : IVDU, Pulmonary infection, Thoracic discitis-osteomyelitis SURGICAL HISTORY : Drainage pulmonary abscess ENCOUNTER: Initial ACUITY: 1 week PAIN SCORE: 7/10 LOCATION: Back FLUORO TIME: 1 minutes IMAGE SERIES: 1 SEDATION TIME: 45 minutes ACCESS: Right internal jugular vein SEDATION: 1.) 2 mg lorazepam (Ativan) IV 2.) 150 mcg fentanyl (Sublimaze) IV Prophylactic antibiotics were administered with appropriate pre-procedure timing. Vancomycin within 2 hours of procedure, Ancef (or alternative) within 1 hour of procedure. DEVICE: 1. dual lumen 9F Caro catheter PROCEDURE : 1. Fluoroscopic guidance. 2. Caro catheter placement 3. Conscious sedation with continuous EKG and oximetry monitoring. The risks, benefits and alternatives to the procedure were explained and verbal and written consent w as obtained. The site was prepped in sterile fashion. Full sterile technique was used, including ca p, mask, sterile gloves and gown and a large sterile sheet. Hand hygiene and 2% chlorhexidine and Be tadine was utilized per protocol for cutaneous antisepsis with appropriate dry time for site. The sk in and subcutaneous tissues were infiltrated with local anesthetic solution. With fluoroscopic guidance a dermatotomy was created in the supraclavicular region. A micropuncture set was used to access to the prescribed vein and serial dilatation was performed to accept a Caro catheter. A subcutaneous tunnel was created and in antegrade fashion the catheter was pulled throug h the tunnel, cut to the appropriate length and place through the sheath. The catheter was locked wi th heparin and sutured in place. Conscious sedation was performed with the prescribed dosages and duration as above in the presence of an independent trained radiology nurse to assist in the monitoring of the patient. EKG and oximetry remained stable throughout the procedure. The patient tolerated the procedure well and there were no complications. The patient was sent to post anesthesia recovery in stable condition. CONCLUSION: Uncomplicated Caro catheter placement as above. Valentin Narvaez MD on June 02, 2016 at 9:41 Board Certified Radiologist. This report was verified electronically.
--- NOTE | 2016-06-02 09:52 | HHI.NSPN ---
(Darrion Garcia) Note Status Status: Progress Note (Darrion Garcia) Interval History Diagnosis 1. Thoracic paraspinal abscess primarily T3-T9 levels 2. Thoracic osteomyelitis primarily T5 level the significant bone destruction Interval History 05/25/16: T4-T5 laminectomy, evacuation epidural and paraspinous abscess 05/29/16: Drain discontinued. 06/01/16: Caro catheter placed. Patient states he is doing all right when seen this evening. 06/02/16: Patient doing well today. States that prior to Caro placement Interventional Radiology had to drain an abscess. Culture sent & pending. ( Darrion Garcia) Labs, Micro, & Vital Signs Results Date Time Temp Pulse Resp B/P Pulse Ox O2 Delivery O2 Flow Rate FiO2 06/02/16 08:00 97.9 112 20 133/87 97 06/02/16 03:25 16 06/02/16 03:25 16 06/01/16 21:18 99.2 115 18 124/79 95 06/01/16 16:39 98.9 113 20 124/85 98 06/01/16 12:20 98.3 116 20 123/77 98 06/02/16 07:00 Intake Total 720 ml Output Total 900 ml Balance -180 ml Constitutional Vital Signs Date Time Temp Pulse Resp B/P Pulse Ox O2 Delivery O2 Flow Rate FiO2 06/02/16 08:00 97.9 112 20 133/87 97 06/02/16 03:25 16 06/02/16 03:25 16 06/01/16 21:18 99.2 115 18 124/79 95 06/01/16 16:39 98.9 113 20 124/85 98 06/01/16 12:20 98.3 116 20 123/77 98 06/02/16 07:00 Intake Total 720 ml Output Total 900 ml Balance -180 ml (Darrion Garcia) Review of Systems/Exam Exam Neuro: AAOx3, speech clear & appropriate, follows commands, moves all extremities w/o difficulty. Neck: Soft, supple, no meningismus or nuchal rigidity. (Darrion Garcia) Medications Current Medications Current Medications Medications (Trade) Dose Ordered Sig/Rony Route Start Time Stop Time Status Last Admin (Narcan Inj) 0.4 mg UNSCH PRN IV 05/24/16 04:30 (D50w (Vial) Inj) 25 ml UNSCH PRN IV PUSH 05/24/16 14:15 (Glucagon Inj) 1 mg UNSCH PRN OTHER 05/24/16 14:15 Albuterol Sulfate 2 puff 2 puff Q4H PRN INH 05/24/16 16:00 05/31/16 08:43 (Ancef 2 Gm Premix) 50 ml @ 100 mls/hr Q8H IV 05/25/16 17:00 06/02/16 09:01 (Colace) 100 mg BID PO 05/25/16 21:00 06/02/16 08:56 (Senokot) 17.2 mg DAILY PO 05/25/16 18:00 06/02/16 08:53 (NS Flush) 2 ml UNSCH PRN IVF 05/25/16 21:45 05/29/16 22:48 (NS Flush) 2 ml BID IVF 05/26/16 09:00 06/01/16 20:07 (Rifampin) 300 mg Q12HR PO 05/30/16 13:00 06/02/16 08:55 (Dilaudid Pf Inj) 1 mg Q4H PRN IV 05/30/16 14:41 06/02/16 02:55 (Dilaudid) 4 mg Q3H PRN PO 05/30/16 20:00 06/02/16 08:51 ([place] 10-325 Mg) 1 tab Q4H PRN PO 05/30/16 18:00 (Oramorph Sr) 15 mg Q12HR PO 05/31/16 21:15 06/02/16 08:54 (NS Flush) See Protocol DAILY IV FLUSH 06/02/16 09:00 06/02/16 08:57 (NS Flush) See Protocol UNSCH PRN IV FLUSH 06/01/16 10:15 (Heparin Central Flush) See Protocol DAILY IV FLUSH 06/02/16 09:00 (Heparin Central Flush) See Protocol UNSCH PRN IV FLUSH 06/01/16 10:15 (NS Flush) UNSCH PRN IV FLUSH 06/01/16 10:15 (NS Flush) DAILY IVF 06/02/16 09:00 (Heparin Central Flush) DAILY IV FLUSH 06/02/16 09:00 (NS Flush) UNSCH PRN IVF 06/01/16 18:30 (Heparin Central Flush) UNSCH PRN IV FLUSH 06/01/16 18:30 (Darrion Garcia) Medical Decision Making MDM Remarks 1. Thoracic paraspinal abscess primarily T3-T9 levels 2. Thoracic osteomyelitis primarily T5 level with significant bone destruction 3. Stable neurologic function status post thoracic laminectomy, evacuation epidural and paraspinous abscess (Darrion Garcia) Plan Plan Remarks Plan of care discussed with patient. CT thoracic spine w/o contrast. PT & OT. Brace when OOB. Antibiotics per Infectious Disease. Will most likely need mid thoracic spine reconstruction & fusion surgery following completion of antibiotics. Continue present pain medication regimen. (Darrion Garcia) Attending Statement I have personally seen and examined the patient on the date of this note. Pertinent documentation and study results have been reviewed by the undersigned. I have personally developed the treatment plan and performed medical decision making. Agree with findings, exam, and treatment plan as noted above. Plan follow-up CT scan thoracic spine due to some complaint of increased thoracic region pain in the past couple of days. (Jeffry Pickard MD) Darrion Garcia Jun 02, 2016 09:52 Jeffry Pickard MD Jun 02, 2016 19:25
[2016-06-02 12:36] VITALS: BP 138/82; PULSE 114; RESP 20; TEMP 99.5; O2SAT 95
--- NOTE | 2016-06-02 15:03 | HHI.IDPN ---
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 Recently treated at [facility] for ?lung abscess and recurrent spinal abscess. Now with epidural abscess same area and possibly extending into lung. Notes reviewed S/P placement Caro cath yesterday Noted to have a fluctuant area overlying his RSC joint, but US showed fluid not in joint Patient stated he noted it yesterday afternoon, not painful Fluid aspirated, and G/S with many WBC, no organism seen No fever OR C/S with MSSA BC also with MSSA Repeat BC negative so far Echo report - good study, valves all look normal Sputum C/S MSSA ESR 65 CRP 13 Voiding ok Antibiotics Ancef Rifampin Lines PIV Past Medical History Reviewed Allergies: Coded Allergies: Aspirin (Verified Allergy, Severe, 09/23/13) PATIENT STATES HE HAD A HOLE IN HIS HEART WHEN HE WAS BORN AND HE WAS TOLD NOT TO TAKE ASPIRIN. ASSISTED MAR STATES NO KNOWN ALLERGIES PATIENT DENIES ALLERGY TO ASPIRIN. 04/01/13 Objective . Vital Signs Date Time Temp Pulse Resp B/P Pulse Ox O2 Delivery O2 Flow Rate FiO2 06/02/16 12:36 99.5 114 20 138/82 95 06/02/16 08:00 97.9 112 20 133/87 97 06/02/16 03:25 16 06/02/16 03:25 16 06/01/16 21:18 99.2 115 18 124/79 95 06/01/16 16:39 98.9 113 20 124/85 98 06/01/16 06/01/16 06/02/16 15:00 23:00 07:00 Intake Total 720 ml Output Total 900 ml Balance -180 ml Intake Oral 720 ml Output Urine Total 900 ml # Voids 2 2 # Bowel Movements 1 1 0 . Laboratory Tests Test 06/01/16 07:27 White Blood Count 9.1 TH/MM3 Red Blood Count 4.20 MIL/MM3 Hemoglobin 9.4 GM/DL Hematocrit 28.4 % Mean Corpuscular Volume 67.5 FL Mean Corpuscular Hemoglobin 22.3 PG Mean Corpuscular Hemoglobin 33.0 % Concent Red Cell Distribution Width 20.2 % Platelet Count 426 TH/MM3 Mean Platelet Volume 7.8 FL Laboratory Tests Test 06/01/16 07:27 Sodium Level 129 MEQ/L Potassium Level 4.3 MEQ/L Chloride Level 94 MEQ/L Carbon Dioxide Level 27.0 MEQ/L Anion Gap 8 MEQ/L Blood Urea Nitrogen 13 MG/DL Creatinine 0.68 MG/DL Estimat Glomerular Filtration 127 ML/MIN Rate Random Glucose 105 MG/DL Calcium Level 8.5 MG/DL Microbiology Date/Time Procedure Status Source Growth 06/01/16 17:40 Gram Stain - Final Resulted Fluid Other 06/01/16 17:40 Body Fluid Culture - Preliminary Resulted Fluid Other NO GROWTH IN 24 HOURS. Imaging Thoracic Spine MRI 05/24/16 0000 Signed Impressions: Service Date/Time: Tuesday, May 24, 2016 10:40 - CONCLUSION: 1. There is extensive bilateral paraspinal abscess extending from approximately T3-T9. The abnormality appears to be centered at the T5 level where there is vertebral body height loss and fluid and enhancement in the adjacent disc spaces suggesting discitis osteomyelitis. A portion of the abnormal fluid collection extends posteriorly on the left at C5-C6. 2. The right lower lobe airspace consolidation has a connection with the adjacent right paraspinal abscess. 3. No spinal canal stenosis is identified. There is mild epidural enhancement in the anterior epidural space at T5-T7 but no epidural abscess is appreciated. Roshan Galvez MD Lumbar Spine MRI 05/24/16 0000 Signed Impressions: Service Date/Time: Tuesday, May 24, 2016 10:40 - CONCLUSION: Significant change from prior exam. No definite acute findings. See above discussion. Roshan Jain MD Chest CT 05/24/16 0000 Signed Impressions: Service Date/Time: Tuesday, May 24, 2016 10:21 - CONCLUSION: 1. Abnormal bilateral paraspinal fluid collection extending from approximately T3-T8. The appearance is highly suggestive of a paraspinal abscess. 2. Focal air space consolidation in the medial right lower lobe abutting the paraspinal process. This likely represents focal lung infection with possible central necrosis. 3. Abnormal appearance of the kidneys suggesting interstitial nephritis or ATN. 4. Partially visualized upper abdomen suggests retroperitoneal lymphadenopathy. Roshan Galvez MD Physical Exam GENERAL: awake and alert, NAD SKIN: Warm and dry. No generalized rash or ecchymosis. HEENT: [place] conjunctivae, no petechia or hemorrhage. No scleral icterus. No injection or drainage. Moist oral mucosa. NECK: Supple, nontender, no meningeal signs. Caro site dry; area of swelling noted close to tunneled line, not tender CARDIOVASCULAR: Regular rate and rhythm without murmurs, gallops, or rubs. No murmur. RESPIRATORY: Clear to auscultation. Breath sounds equal bilaterally. He has few scattered rhonchi. Decreased at the bases. GASTROINTESTINAL: Abdomen soft, mildly tender, mildly distended. No guarding or rebound. Bowel sounds are present and normoactive. No organomegaly. MUSCULOSKELETAL: Extremities without clubbing, cyanosis, or edema. No joint tenderness, effusion. No calf tenderness. NEUROLOGICAL: Non-focal PSYCH: Normal affect, calm and cooperative. 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 S/P OR Pneumonia, ?abscess Previous Rx for osteo thoracic, removal of toracic hardware last 2013, with MSSA Previous Rx MSSA osteo of spine 2011 Known IVDU Fluid collection over RSC joint, aspirated, studies pending RECOMMENDATION Continue Ancef and Rifampin Will need 6-8 weeks IV Abx from date of surgery - 6 weeks would be July 05 - 8 weeks would be July 19 - follow ESR to guide duration - then chronic oral suppression with Keflex or Dicloxacillin Labs weekly while on IV Abx: CBC, creat, LFT Follow new C/S Monitor progress CM to arrange for IV Abx - ?home or SNF Genie Wadsworth MD Jun 02, 2016 15:03
[2016-06-02 16:00] VITALS: BP 127/85; PULSE 129; RESP 20; TEMP 99.8; O2SAT 96
[2016-06-02 17:55] VITALS: O2SAT 96
[2016-06-02 20:52] VITALS: BP 136/84; PULSE 104; RESP 16; TEMP 97.2; O2SAT 94
--- NOTE | 2016-06-02 21:21 | RADRPT ---
EXAM DATE/TIME: 06/02/2016 20:27 [facility] COMPARISON: MRI THORACIC SPINE W & W/O CONTRAST, May 24, 2016, 10:40. INDICATIONS : Follow up epidural abscess. RADIATION DOSE: 16.83 CTDIvol (mGy) MEDICAL HISTORY : Hepatitis C. Congestive heart failure. SURGICAL HISTORY : vertebral repair ENCOUNTER: Subsequent ACUITY: 1 week PAIN SCALE: 5/10 LOCATION: upper back TECHNIQUE: Volumetric scanning of the thoracic spine was performed. Multiplanar reconstructions in the sagittal , coronal and oblique axial planes were performed. Using automated exposure control and adjustment o f the mA and/or kV according to patient size, radiation dose was kept as low as reasonably achievable to obtain optimal diagnostic quality images. FINDINGS: There is kyphosis of the thoracic spine. Extensive destructive lytic changes along the lower endplate at T5 noted. There is almost complete loss of height and vertebral plana type appearance at T6. Incr eased sclerosis at T7 with prominent lucency along the inferior endplate of T7. There is bridging of the anterior vertebral bodies at T8-T10. Anterior paraspinal soft tissue fluid/thickening is again se en from the lower aspect of T2 down to T9 level. There is air in the anterior soft tissues. The area of right lower lobe consolidation/mass is again seen. There are laminectomies from T3-T9. CONCLUSION: 1. Extensive lytic destructive process along the lower endplate at T5, T6 and T7 vertebral bodies con sistent with osteomyelitis. 2. There is osteomyelitis at T7 given the increased sclerosis. 3. Anterior paraspinal abscess containing air is again seen from lower T2 down to T9 level. 4. The right lower lobe mass/consolidation seen abutting the mediastinum medially is again noted. Roni Dominique MD on June 02, 2016 at 21:06 Board Certified Radiologist. This report was verified electronically.
[2016-06-03] MEDS: ceFAZolin 2 GM PREMIX 50 ML IV SCH ×3 (01:07→16:26)
[2016-06-03] MEDS: HYDROmorphone HCL PF 1 MG/ML VIAL IV PRN ×5 (01:07→23:56)
[2016-06-03] MEDS: HYDROmorphone HCL 4 MG TAB PO PRN ×7 (01:44→21:35)
[2016-06-03 08:00] VITALS: BP 96/52; PULSE 68; RESP 16; TEMP 97.1; O2SAT 93
[2016-06-03] MEDS: MORPHINE SULFATE 15 MG CONTROLLED RELEASE TAB PO SCH ×2 (08:20→21:25)
[2016-06-03] MEDS: RIFAMPIN 150 MG CAP PO SCH ×2 (08:20→21:25)
[2016-06-03] MEDS: DOCUSATE SODIUM 100 MG CAP PO SCH ×2 (08:20→21:25)
[2016-06-03] MEDS: SODIUM CHLORIDE 0.9% FLUSH 10 ML FLUSH IVF SCH (08:21)
[2016-06-03] MEDS: SODIUM CHLORIDE 0.9% FLUSH 5 ML FLUSH IVF SCH ×2 (08:21→21:24)
[2016-06-03] MEDS: SENNOSIDES 8.6 MG TAB PO SCH (08:21)
[2016-06-03] MEDS: SODIUM CHLORIDE 0.9% FLUSH 10 ML FLUSH IV FLUSH SCH (08:24)
[2016-06-03] MEDS: ALBUTEROL SULFATE 90 MCG/ACT HFA 18 GM INHALER INH PRN (08:24)
[2016-06-03 12:00] VITALS: BP 108/60; PULSE 68; RESP 18; TEMP 97.1; O2SAT 94
[2016-06-03 16:00] VITALS: BP 102/62; PULSE 68; RESP 16; TEMP 96.1; O2SAT 94
--- NOTE | 2016-06-03 16:43 | HHI.NSPN ---
History Chief Complaint: back pain Interval History 05/25/16: T4-T5 laminectomy, evacuation epidural and paraspinous abscess 05/29/16: Drain discontinued. 06/03/16: Follow-up CT scan thoracic spine reveals no significant increase in kyphosis or destructive lesions. Exam Results Vital Signs Date Time Temp Pulse Resp B/P Pulse Ox O2 Delivery O2 Flow Rate FiO2 06/03/16 16:00 96.1 68 16 102/62 94 06/02/16 17:55 21 05/31/16 21:10 Room Air Intake and Output 06/02/16 06/02/16 06/03/16 08:00 16:00 00:00 Intake Total 720 ml Output Total 900 ml Balance -180 ml Physical Examination Neuro: AAOx3, speech clear & appropriate, follows commands, moves all extremities w/o difficulty. Neck: Soft, supple, no meningismus or nuchal rigidity. Sensation intact light touch all extremities Strength normal major flexion and extension groups all extremities Moderate tenderness thoracic paraspinous musculature Lab, Micro, Other Results 06/02/16 CT scan thoracic spine images reviewed. Agree with findings as noted below: Thoracic Spine CT 06/02/16 0000 Signed Impressions: Service Date/Time: Thursday, June 02, 2016 20:27 - CONCLUSION: 1. Extensive lytic destructive process along the lower endplate at T5, T6 and T7 vertebral bodies consistent with osteomyelitis. 2. There is osteomyelitis at T7 given the increased sclerosis. 3. Anterior paraspinal abscess containing air is again seen from lower T2 down to T9 level. 4. The right lower lobe mass/consolidation seen abutting the mediastinum medially is again noted. Roni Dominique MD Medical Decision Making Impression and Plan Impression: Stable neurologic function status post thoracic laminectomy, evacuation epidural and paraspinous abscess 06/03/16 CT scan thoracic spine relatively stable. Plan: Continue to mobilize out of bed with therapy Pain appears adequately controlled on present medications Infectious disease following. Continuing IV antibiotics Jeffry Pickard MD Jun 03, 2016 16:43
[2016-06-03 20:00] VITALS: BP 94/70; PULSE 120; RESP 20; TEMP 102.1; O2SAT 92
[2016-06-03] MEDS ORDERED: ACETAMINOPHEN 325 MG TAB PO PRN (20:30)
[2016-06-04] MEDS: ceFAZolin 2 GM PREMIX 50 ML IV SCH ×3 (00:01→17:31)
[2016-06-04] MEDS: HYDROmorphone HCL 4 MG TAB PO PRN ×6 (00:54→21:39)
[2016-06-04 01:31] VITALS: TEMP 96
[2016-06-04] MEDS: ACETAMINOPHEN/HYDROcodone 325 MG/10 MG TAB PO PRN ×2 (06:05→23:36)
[2016-06-04 08:00] VITALS: BP_SYST 89; BP_SYST 93; BP_DIAS 55; BP_DIAS 62; PULSE 92; RESP 16; TEMP 98.9; O2SAT 99
[2016-06-04] MEDS: RIFAMPIN 150 MG CAP PO SCH ×2 (08:42→21:39)
[2016-06-04] MEDS: MORPHINE SULFATE 15 MG CONTROLLED RELEASE TAB PO SCH ×2 (08:42→21:39)
[2016-06-04] MEDS: SODIUM CHLORIDE 0.9% FLUSH 5 ML FLUSH IVF SCH ×2 (08:42→21:39)
[2016-06-04] MEDS: DOCUSATE SODIUM 100 MG CAP PO SCH ×2 (08:43→21:39)
[2016-06-04] MEDS: SODIUM CHLORIDE 0.9% FLUSH 10 ML FLUSH IV FLUSH SCH (08:43)
[2016-06-04] MEDS: SENNOSIDES 8.6 MG TAB PO SCH (08:43)
[2016-06-04] MEDS: SODIUM CHLORIDE 0.9% FLUSH 10 ML FLUSH IVF SCH (08:43)
[2016-06-04] MEDS: HYDROmorphone HCL PF 1 MG/ML VIAL IV PRN ×3 (08:43→19:15)
[2016-06-04 12:00] VITALS: BP 96/62; PULSE 99; RESP 18; TEMP 97.1; O2SAT 99
[2016-06-04 16:00] VITALS: BP 98/60; PULSE 100; RESP 16; TEMP 97.1; O2SAT 98
--- NOTE | 2016-06-04 18:47 | HHI.NSPN ---
History Chief Complaint: back pain Interval History 05/25/16: T4-T5 laminectomy, evacuation epidural and paraspinous abscess 05/29/16: Drain discontinued. 06/03/16: Follow-up CT scan thoracic spine reveals no significant increase in kyphosis or destructive lesions. Exam Results Vital Signs Date Time Temp Pulse Resp B/P Pulse Ox O2 Delivery O2 Flow Rate FiO2 06/04/16 16:00 97.1 100 16 98/60 98 06/02/16 17:55 21 05/31/16 21:10 Room Air Intake and Output 06/03/16 06/03/16 06/04/16 08:00 16:00 00:00 Intake Total 720 ml 720 ml 300 ml Output Total 1050 ml 400 ml Balance -330 ml 720 ml -100 ml Physical Examination Neuro: AAOx3, speech clear & appropriate, follows commands, moves all extremities w/o difficulty. Neck: Soft, supple, no meningismus or nuchal rigidity. Sensation intact light touch all extremities Strength normal major flexion and extension groups all extremities Moderate tenderness thoracic paraspinous musculature Incision dry and intact without drainage. Lab, Micro, Other Results Microbiology Date/Time Procedure Status Source Growth 06/03/16 21:57 Aerobic Blood Culture - Preliminary Resulted Blood Other NO GROWTH IN 1 DAY 06/03/16 21:57 Anaerobic Blood Culture - Final Resulted Blood Other ONLY AEROBIC CULTURE ORDERED Medical Decision Making Impression and Plan Impression: Stable neurologic function status post thoracic laminectomy, evacuation epidural and paraspinous abscess 06/03/16 CT scan thoracic spine relatively stable. Positive fever 06/03/16 Plan: Final blood cultures pending Patient will need Caro catheter replaced Continue to mobilize out of bed with therapy Pain appears adequately controlled on present medications Infectious disease following. Continuing IV antibiotics Jeffry Pickard MD Jun 04, 2016 18:47
[2016-06-04 20:00] VITALS: BP 109/64; PULSE 117; RESP 18; TEMP 99.7; O2SAT 95
[2016-06-05] MEDS: HYDROmorphone HCL 4 MG TAB PO PRN ×8 (00:19→22:06)
[2016-06-05] MEDS: ceFAZolin 2 GM PREMIX 50 ML IV SCH ×3 (00:22→18:21)
[2016-06-05 08:54] VITALS: BP 94/54; PULSE 100; RESP 16; TEMP 98.6; O2SAT 98
[2016-06-05] MEDS: SODIUM CHLORIDE 0.9% FLUSH 10 ML FLUSH IVF SCH (09:00)
[2016-06-05] MEDS: DOCUSATE SODIUM 100 MG CAP PO SCH ×2 (09:13→20:50)
[2016-06-05] MEDS: MORPHINE SULFATE 15 MG CONTROLLED RELEASE TAB PO SCH ×2 (09:14→20:49)
[2016-06-05] MEDS: RIFAMPIN 150 MG CAP PO SCH ×2 (09:14→20:50)
[2016-06-05] MEDS: SENNOSIDES 8.6 MG TAB PO SCH (09:14)
[2016-06-05] MEDS: SODIUM CHLORIDE 0.9% FLUSH 5 ML FLUSH IVF SCH ×2 (09:20→20:50)
[2016-06-05] MEDS: SODIUM CHLORIDE 0.9% FLUSH 10 ML FLUSH IV FLUSH SCH (09:20)
[2016-06-05] MEDS ORDERED: VANCOMYCIN HCL 1000 MG VIAL ONE (09:41)
[2016-06-05] MEDS ORDERED: MIDAZOLAM HCL 5 MG/5 ML VIAL ONE (09:51)
[2016-06-05] MEDS ORDERED: fentaNYL CITRATE 250 MCG/5 ML AMP ONE (09:52)
[2016-06-05] MEDS ORDERED: LIDOCAINE 1%/EPINEPHrine 1:100,000 SOLN 20 ML VIAL ONE (10:27)
--- NOTE | 2016-06-05 10:57 | HHI.NSPN ---
(Darrion Garcia) Note Status Status: Progress Note (Darrion Garcia) Interval History Diagnosis 1. Thoracic paraspinal abscess primarily T3-T9 levels 2. Thoracic osteomyelitis primarily T5 level the significant bone destruction Interval History 05/25/16: T4-T5 laminectomy, evacuation epidural and paraspinous abscess 05/29/16: Drain discontinued. 06/01/16: Caro catheter placed. Patient states he is doing all right when seen this evening. 06/02/16: Patient doing well today. States that prior to Caro placement Interventional Radiology had to drain an abscess. Culture sent & pending. 06/05/16: Patient to Interventional Radiology for new line placement at 1000 but had not returned to floor when this practitioner initially went to see patient at 1057. Patient seen at 1445 this afternoon following a single lumen Caro catheter placement by Interventional Radiology. He does have some pain to his back and the catheter insertion site, otherwise he states he is doing pretty good. (Darrion Garcia) Labs, Micro, & Vital Signs Constitutional Vital Signs Date Time Temp Pulse Resp B/P Pulse Ox O2 Delivery O2 Flow Rate FiO2 06/05/16 08:54 98.6 100 16 94/54 98 06/05/16 04:00 06/05/16 00:00 06/04/16 20:00 99.7 117 18 109/64 95 06/04/16 16:00 97.1 100 16 98/60 98 06/04/16 12:00 97.1 99 18 96/62 99 06/05/16 07:00 Intake Total 980 ml Output Total 500 ml Balance 480 ml (Darrion Garcia) Review of Systems/Exam ROS Neuro: Denies any headache, dizziness, numbness or tingling. Neck: Denies any neck pain. Respiratory: Some pain to the anterior right chest/shoulder where the Caro catheter went in. Denies any shortness of breath or productive cough. Cardiac: Denies any chest pain, palpitation or irregular heart rate. GI: Denies any abdominal pain, nausea, vomiting or bowel incontinence. : Denies any bladder incontinence. Back: Some pain to the back. Extremities: Some pain to the anterior right chest/shoulder where the Caro catheter went in. Exam Constitutional: Laying in bed watching TV, no apparent distress. HEENT: Normocephalic, atraumatic. Neck: Soft, supple, no meningismus or nuchal rigidity. Resp: CTAB w/o W/R/R, equal excursion, non-laboured, on RA. CV: RRR w/o M/G/R, cap refill < 2 sec, radial & pedal pulses 2+ bilaterally, no pedal edema. GI: Abdomen soft, non-tender, positive bowel sounds. Back: TTP over surgical incision, dressing dry & intact w/o any evident drainage , erythema or streaking. Extremities: [place], no clubbing, deformity or discolouration. Neuro: AAOx3. Speech clear & appropriate. Follows commands. Motor strength equal throughout all major extensor & flexion muscle groups. Sensation grossly intact to light touch all extremities. (Darrion Garcia) Medications Current Medications Current Medications Medications (Trade) Dose Ordered Sig/Rony Route Start Time Stop Time Status Last Admin (Narcan Inj) 0.4 mg UNSCH PRN IV 05/24/16 04:30 (D50w (Vial) Inj) 25 ml UNSCH PRN IV PUSH 05/24/16 14:15 (Glucagon Inj) 1 mg UNSCH PRN OTHER 05/24/16 14:15 Albuterol Sulfate 2 puff 2 puff Q4H PRN INH 05/24/16 16:00 06/03/16 08:24 (Ancef 2 Gm Premix) 50 ml @ 100 mls/hr Q8H IV 05/25/16 17:00 06/04/16 17:31 (Colace) 100 mg BID PO 05/25/16 21:00 06/05/16 09:13 (Senokot) 17.2 mg DAILY PO 05/25/16 18:00 06/05/16 09:14 (NS Flush) 2 ml UNSCH PRN IVF 05/25/16 21:45 05/29/16 22:48 (NS Flush) 2 ml BID IVF 05/26/16 09:00 06/04/16 21:39 (Rifampin) 300 mg Q12HR PO 05/30/16 13:00 06/05/16 09:14 (Dilaudid Pf Inj) 1 mg Q4H PRN IV 05/30/16 14:41 06/04/16 19:15 (Dilaudid) 4 mg Q3H PRN PO 05/30/16 20:00 06/05/16 09:17 ([place] 10-325 Mg) 1 tab Q4H PRN PO 05/30/16 18:00 06/04/16 23:36 (Oramorph Sr) 15 mg Q12HR PO 05/31/16 21:15 06/05/16 09:14 (NS Flush) See Protocol DAILY IV FLUSH 06/02/16 09:00 06/03/16 08:24 (NS Flush) See Protocol UNSCH PRN IV FLUSH 06/01/16 10:15 (Heparin Central Flush) See Protocol DAILY IV FLUSH 06/02/16 09:00 (Heparin Central Flush) See Protocol UNSCH PRN IV FLUSH 06/01/16 10:15 (NS Flush) UNSCH PRN IV FLUSH 06/01/16 10:15 (NS Flush) DAILY IVF 06/02/16 09:00 06/03/16 08:21 (Heparin Central Flush) DAILY IV FLUSH 06/02/16 09:00 (NS Flush) UNSCH PRN IVF 06/01/16 18:30 (Heparin Central Flush) UNSCH PRN IV FLUSH 06/01/16 18:30 (Tylenol) 650 mg Q4H PRN PO 06/03/16 21:25 (Darrion Garcia) Medical Decision Making MDM Remarks Impression: 1. Thoracic paraspinal abscess primarily T3-T9 levels 2. Thoracic osteomyelitis primarily T5 level with significant bone destruction 3. Stable neurologic function status post thoracic laminectomy, evacuation epidural and paraspinous abscess 4. Thoracic spine relatively stable on CT scan 5. Afebrile since at 2000 A. Max temp past 24 hrs 99.7 degrees 6. Pain essentially controlled on current medication regimen (Darrion Garcia) Plan Plan Remarks Plan of care discussed with patient. PT & OT. Brace when OOB. Antibiotics per Infectious Disease. Will most likely need mid thoracic spine reconstruction & fusion surgery following completion of antibiotics. Continue present pain medication regimen. Blood cultures being collected today (Darrion Garcia) Attending Statement Noted completed at at 1511 by MOSES Mckeon Jr. (Darrion Garcia) I have personally seen and examined the patient on the date of this note. Pertinent documentation and study results have been reviewed by the undersigned. I have personally developed the treatment plan and performed medical decision making. Agree with findings, exam, and treatment plan as noted above. Pain appears adequately controlled with present medications. Continues to mobilize out of bed with brace. (Jeffry Pickard MD) Darrion Garcia Jun 05, 2016 10:57 Jeffry Pickard MD Jun 05, 2016 20:49
[2016-06-05 11:35] VITALS: BP 102/75; PULSE 47; RESP 19; TEMP 98.2; O2SAT 96
--- NOTE | 2016-06-05 11:37 | PD.RAD ---
Post Procedure Progress Note Pre Procedure Diagnosis: (1) Epidural abscess (2) Paraspinal abscess (3) Intravenous drug abuse in remission Post Procedure Diagnosis: (1) Epidural abscess (2) Paraspinal abscess (3) Intravenous drug abuse in remission Procedure Date: Jun 05, 2016 Supervising Radiologist: Valentin Narvaez Proceduralist/Assist: Denae Snow RT(R), Jayne Batista RT(R)() Anesthesia: Local, Analgesia, Conscious Sedation Plan of Activity Patient to Unit: ROPU Patient Condition: Good See PACS Report for procedural detail/treatment Central Venous Access Device Procedure 1 Right Internal Jugular Tunneled Central Line (Single lumen tellez) single lumen Amharic: 6 Valentin Narvaez MD Jun 05, 2016 11:37
[2016-06-05 11:50] VITALS: BP 106/62; PULSE 52; RESP 18; O2SAT 97
[2016-06-05] MEDS: HYDROmorphone HCL PF 1 MG/ML VIAL IV PRN ×3 (12:18→20:50)
[2016-06-05 12:30] VITALS: BP 111/55; PULSE 101; RESP 16; TEMP 97.6; O2SAT 97
--- NOTE | 2016-06-05 13:09 | RADRPT ---
EXAM DATE/TIME: 06/05/2016 10:50 [place] COMPARISON: SEN CATHETER PLACEMENT, RIGHT, June 01, 2016, 17:20. INDICATIONS : Patient with hstory of thoracic discitis -osteomyelitis in need of tunneled sen catheter placemen t for vascular access. MEDICAL HISTORY : 1.IVDU 2.Pulmonary infection 3.Discitis -osteomyelitis SURGICAL HISTORY : 1.Pulmonary abscess drainage ENCOUNTER: Subsequent ACUITY: 2 weeks PAIN SCORE: 7/10 LOCATION: Back and shoulders FLUORO TIME: 0.5 minutes IMAGE SERIES: 1 SEDATION TIME: 60 minutes ACCESS: Right internal jugular vein SEDATION: 1.) 5 mg midazolam (Versed) IV 2.) 250 mcg fentanyl (Sublimaze) IV Prophylactic antibiotics were administered with appropriate pre-procedure timing. Vancomycin within 2 hours of procedure, Ancef (or alternative) within 1 hour of procedure. DEVICE: 1. 7 [place] Island[place] single lumen Sen catheter PROCEDURE : 1. Fluoroscopic guidance. 2. Sen catheter placement 3. Conscious sedation with continuous EKG and oximetry monitoring. The risks, benefits and alternatives to the procedure were explained and verbal and written consent w as obtained. The site was prepped in sterile fashion. Full sterile technique was used, including ca p, mask, sterile gloves and gown and a large sterile sheet. Hand hygiene and 2% chlorhexidine and Be tadine was utilized per protocol for cutaneous antisepsis with appropriate dry time for site. The sk in and subcutaneous tissues were infiltrated with local anesthetic solution. With fluoroscopic guidance a dermatotomy was created in the supraclavicular region. A micropuncture set was used to access to the prescribed vein and serial dilatation was performed to accept a Sen catheter. A subcutaneous tunnel was created and in antegrade fashion the catheter was pulled throug h the tunnel, cut to the appropriate length and place through the sheath. The catheter was locked wi th heparin and a Prolene cerclage placed at the chest wall dermatotomy. Conscious sedation was performed with the prescribed dosages and duration as above in the presence of an independent trained radiology nurse to assist in the monitoring of the patient. EKG and oximetry remained stable throughout the procedure. The patient tolerated the procedure well and there were no complications. The patient was sent to post anesthesia recovery in stable condition. CONCLUSION: Uncomplicated Sen catheter placement as above. Chest wall cerclage stitch can be removed in approximately 10-14 days Valentin Narvaez MD on June 05, 2016 at 12:08 Board Certified Radiologist. This report was verified electronically.
--- NOTE | 2016-06-05 13:40 | HHI.PR ---
Objective Vitals Vital Signs Date Time Temp Pulse Resp B/P Pulse Ox O2 Delivery O2 Flow Rate FiO2 06/05/16 12:30 97.6 101 16 111/55 97 06/05/16 11:50 52 18 106/62 97 06/05/16 11:35 98.2 47 19 102/75 96 06/05/16 08:54 98.6 100 16 94/54 98 06/05/16 04:00 06/05/16 00:00 06/04/16 20:00 99.7 117 18 109/64 95 06/04/16 16:00 97.1 100 16 98/60 98 I/O 06/04/16 06/04/16 06/04/16 06/05/16 06/05/16 06/05/16 07:00 15:00 23:00 07:00 15:00 23:00 Intake Total 360 ml 860 ml 120 ml 720 ml Output Total 700 ml 500 ml 800 ml Balance -340 ml 360 ml 120 ml -80 ml Intake Oral 360 ml 860 ml 120 ml 720 ml Output Urine Total 700 ml 500 ml 800 ml # Voids 1 1 # Bowel Movements 0 Result Diagram: 06/01/1672606/01/16726 Procedures T4-5 decompressive laminectomy, evacuation epidural abscess and granulation tissue Evacuation thoracic paraspinous abscess Mehreen Murrell MD Jun 05, 2016 13:40
--- NOTE | 2016-06-05 14:26 | HHI.IDPN ---
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 Recently treated at [facility] for ?lung abscess and recurrent spinal abscess. Now with epidural abscess same area and possibly extending into lung. Notes reviewed Had an episode of fever x 1 06/03 pm, no recurrence Caro got pulled, has new on placed today Feels good No complaints C/S fluid ESC negative No new (+) BC OR C/S with MSSA BC also with MSSA Repeat BC negative so far Echo report - good study, valves all look normal Sputum C/S MSSA ESR 65 CRP 13 Voiding ok No rash No diarrhea Antibiotics Ancef Rifampin Lines Caro RIJ PIV Past Medical History Reviewed Allergies: Coded Allergies: Aspirin (Verified Allergy, Severe, 09/23/13) PATIENT STATES HE HAD A HOLE IN HIS HEART WHEN HE WAS BORN AND HE WAS TOLD NOT TO TAKE ASPIRIN. M[facility] MAR STATES NO KNOWN ALLERGIES PATIENT DENIES ALLERGY TO ASPIRIN. 04/01/13 Objective . Vital Signs Date Time Temp Pulse Resp B/P Pulse Ox O2 Delivery O2 Flow Rate FiO2 06/05/16 12:30 97.6 101 16 111/55 97 06/05/16 11:50 52 18 106/62 97 06/05/16 11:35 98.2 47 19 102/75 96 06/05/16 08:54 98.6 100 16 94/54 98 06/05/16 04:00 06/05/16 00:00 06/04/16 20:00 99.7 117 18 109/64 95 06/04/16 16:00 97.1 100 16 98/60 98 06/04/16 06/04/16 06/05/16 15:00 23:00 07:00 Intake Total 860 ml 120 ml Output Total 500 ml Balance 360 ml 120 ml Intake Oral 860 ml 120 ml Output Urine Total 500 ml # Voids 1 1 . Microbiology Date/Time Procedure Status Source Growth 06/03/16 21:57 Aerobic Blood Culture - Preliminary Resulted Blood Other NO GROWTH IN 2 DAYS 06/03/16 21:57 Anaerobic Blood Culture - Final Resulted Blood Other ONLY AEROBIC CULTURE ORDERED Imaging Catheter Placement X-Ray 06/05/16 0000 Signed Impressions: Service Date/Time: Sunday, June 05, 2016 10:50 - CONCLUSION: Uncomplicated Caro catheter placement as above. Chest wall cerclage stitch can be removed in approximately 10-14 days Valentin Narvaez MD Thoracic Spine CT 06/02/16 0000 Signed Impressions: Service Date/Time: Thursday, June 02, 2016 20:27 - CONCLUSION: 1. Extensive lytic destructive process along the lower endplate at T5, T6 and T7 vertebral bodies consistent with osteomyelitis. 2. There is osteomyelitis at T7 given the increased sclerosis. 3. Anterior paraspinal abscess containing air is again seen from lower T2 down to T9 level. 4. The right lower lobe mass/consolidation seen abutting the mediastinum medially is again noted. Roni Dominique MD Joint Aspiration/Injection 06/01/16 0000 Signed Impressions: Service Date/Time: May 16:59 - CONCLUSION: Uncomplicated aspiration as above. Valentin Narvaez MD Chest X-Ray 05/25/16 0000 Signed Impressions: Service Date/Time: May 22:46 - CONCLUSION: Mild vascular congestion and bibasilar atelectasis. Roshan Jain MD Thoracic Spine MRI 05/24/16 0000 Signed Impressions: Service Date/Time: Tuesday, May 24, 2016 10:40 - CONCLUSION: 1. There is extensive bilateral paraspinal abscess extending from approximately T3-T9. The abnormality appears to be centered at the T5 level where there is vertebral body height loss and fluid and enhancement in the adjacent disc spaces suggesting discitis osteomyelitis. A portion of the abnormal fluid collection extends posteriorly on the left at C5-C6. 2. The right lower lobe airspace consolidation has a connection with the adjacent right paraspinal abscess. 3. No spinal canal stenosis is identified. There is mild epidural enhancement in the anterior epidural space at T5-T7 but no epidural abscess is appreciated. Roshan Galvez MD Lumbar Spine MRI 05/24/16 0000 Signed Impressions: Service Date/Time: Tuesday, May 24, 2016 10:40 - CONCLUSION: Significant change from prior exam. No definite acute findings. See above discussion. Roshan Jain MD Chest CT 05/24/16 0000 Signed Impressions: Service Date/Time: Tuesday, May 24, 2016 10:21 - CONCLUSION: 1. Abnormal bilateral paraspinal fluid collection extending from approximately T3-T8. The appearance is highly suggestive of a paraspinal abscess. 2. Focal air space consolidation in the medial right lower lobe abutting the paraspinal process. This likely represents focal lung infection with possible central necrosis. 3. Abnormal appearance of the kidneys suggesting interstitial nephritis or ATN. 4. Partially visualized upper abdomen suggests retroperitoneal lymphadenopathy. Roshan Galvez MD Thoracic Spine MRI 05/24/16 0000 Signed Impressions: Service Date/Time: Tuesday, May 24, 2016 10:40 - CONCLUSION: 1. There is extensive bilateral paraspinal abscess extending from approximately T3-T9. The abnormality appears to be centered at the T5 level where there is vertebral body height loss and fluid and enhancement in the adjacent disc spaces suggesting discitis osteomyelitis. A portion of the abnormal fluid collection extends posteriorly on the left at C5-C6. 2. The right lower lobe airspace consolidation has a connection with the adjacent right paraspinal abscess. 3. No spinal canal stenosis is identified. There is mild epidural enhancement in the anterior epidural space at T5-T7 but no epidural abscess is appreciated. Roshan Galvez MD Lumbar Spine MRI 05/24/16 0000 Signed Impressions: Service Date/Time: Tuesday, May 24, 2016 10:40 - CONCLUSION: Significant change from prior exam. No definite acute findings. See above discussion. Roshan Jain MD Chest CT 05/24/16 0000 Signed Impressions: Service Date/Time: Tuesday, May 24, 2016 10:21 - CONCLUSION: 1. Abnormal bilateral paraspinal fluid collection extending from approximately T3-T8. The appearance is highly suggestive of a paraspinal abscess. 2. Focal air space consolidation in the medial right lower lobe abutting the paraspinal process. This likely represents focal lung infection with possible central necrosis. 3. Abnormal appearance of the kidneys suggesting interstitial nephritis or ATN. 4. Partially visualized upper abdomen suggests retroperitoneal lymphadenopathy. Roshan Galvez MD Physical Exam GENERAL: awake and alert, NAD SKIN: Warm and dry. No generalized rash or ecchymosis. HEENT: [place] conjunctivae, no petechia or hemorrhage. No scleral icterus. No injection or drainage. Moist oral mucosa. NECK: Supple, nontender, no meningeal signs. Caro site with some blood at site. Previous swelling over RSC joint very minimal now CARDIOVASCULAR: Regular rate and rhythm without murmurs, gallops, or rubs. No murmur. RESPIRATORY: Clear to auscultation. Breath sounds equal bilaterally. He has few scattered rhonchi. Decreased at the bases. GASTROINTESTINAL: Abdomen soft, mildly tender, mildly distended. No guarding or rebound. Bowel sounds are present and normoactive. No organomegaly. MUSCULOSKELETAL: Extremities without clubbing, cyanosis, or edema. No joint tenderness, effusion. No calf tenderness. NEUROLOGICAL: Non-focal PSYCH: Normal affect, calm and cooperative. 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 S/P OR - per NS, abscess did not communicate in thoracic cavoty Pneumonia, better Previous Rx for osteo thoracic, removal of toracic hardware last 2013, with MSSA Previous Rx MSSA osteo of spine 2011 Known IVDU Fluid collection over RSC joint, aspirated, C/S negative, looks better RECOMMENDATION Continue Ancef and Rifampin Will need 6-8 weeks IV Abx from date of surgery - 6 weeks would be July 05 - 8 weeks would be July 19 - follow ESR to guide duration - then chronic oral suppression with Keflex or Dicloxacillin Labs weekly while on IV Abx: CBC, creat, LFT Follow new C/S Monitor progress Follow temps CM to arrange for IV Abx - ?home or SNF Genie Wadsworth MD Jun 05, 2016 14:26
[2016-06-05 15:50] LABS: AUTOMATED NEUTROPHIL # 2.2 TH/MM3 (1.8-7.7); BASOPHIL % 1.1 % (0.0-2.0); EOSINOPHIL % 1.3 % (0.0-4.0); HEMATOCRIT 24.2 % (39.0-51.0); LYMPHOCYTE # 0.8 TH/MM3 (1.0-4.8); MEAN CELL VOLUME 68.2 FL (80.0-100.0); MEAN CORPUSCULAR HEMOGLOBIN 22.8 PG (27.0-34.0); MEAN CORPUSCULAR HGB CONC 33.4 % (32.0-36.0); MONO % 14.2 % (0.0-8.0); NEUT % 61.4 % (16.0-70.0); PLATELET COUNT 193 TH/MM3 (150-450); RED BLOOD COUNT 3.55 MIL/MM3 (4.50-5.90); RED CELL DISTRIBUTION WIDTH 19.2 % (11.6-17.2); WHITE BLOOD COUNT 3.6 TH/MM3 (4.0-11.0)
[2016-06-05 16:07] LABS: HEMO FLAGS AUTO DIFF
[2016-06-05 16:13] LABS: BICARBONATE 27.9 MEQ/L (21.0-32.0); POTASSIUM 3.8 MEQ/L (3.5-5.1)
[2016-06-05 16:27] LABS: OVALOCYTES 1+ (NORMAL)
[2016-06-05 16:28] LABS: KERATOCYTES OCC (NORMAL); PLATELET ESTIMATE SMEAR NORMAL (NORMAL); PLATELET MORPHOLOGY NORMAL (NORMAL); SCAN/DIFF AUTO DIFF CONFIRMED
[2016-06-05 16:55] VITALS: BP 124/67; PULSE 96; RESP 17; TEMP 97.1; O2SAT 96
--- NOTE | 2016-06-05 18:12 | HHI.PR ---
Subjective Remarks Laying in bed, pain is tolerable with current dose of narcotic Afebrile, he had his right IJ line yesterday Objective Vitals Vital Signs Date Time Temp Pulse Resp B/P Pulse Ox O2 Delivery O2 Flow Rate FiO2 06/05/16 16:55 97.1 96 17 124/67 96 06/05/16 12:30 97.6 101 16 111/55 97 06/05/16 11:50 52 18 106/62 97 06/05/16 11:35 98.2 47 19 102/75 96 06/05/16 08:54 98.6 100 16 94/54 98 06/05/16 04:00 06/05/16 00:00 06/04/16 20:00 99.7 117 18 109/64 95 I/O 06/04/16 06/04/16 06/04/16 06/05/16 06/05/16 06/05/16 07:00 15:00 23:00 07:00 15:00 23:00 Intake Total 360 ml 860 ml 120 ml 720 ml Output Total 700 ml 500 ml 800 ml Balance -340 ml 360 ml 120 ml -80 ml Intake Oral 360 ml 860 ml 120 ml 720 ml Output Urine Total 700 ml 500 ml 800 ml # Voids 1 1 # Bowel Movements 0 Result Diagram: 06/05/16 1515 06/05/16 1515 Objective Remarks GENERAL: This is a well-nourished, well-developed patient, in no apparent distress. CARDIOVASCULAR: Regular rate and rhythm without murmurs, gallops, or rubs. RESPIRATORY: Clear to auscultation. Breath sounds equal bilaterally. No wheezes , rales, or rhonchi. GASTROINTESTINAL: Abdomen soft, non-tender, nondistended. Normal active bowel sounds MUSCULOSKELETAL: Extremities without clubbing, cyanosis, or edema. NEURO: Alert & Oriented x4 to person, place, time, situation. Moves all ext x4 Procedures T4-5 decompressive laminectomy, evacuation epidural abscess and granulation tissue Evacuation thoracic paraspinous abscess A/P Assessment and Plan 06/05: Stable, had his right IJ line, continue with neurosurgery recommendations 41-year-old male with: Multiple infections/ Sepsis Thoracic spine MRI shows: There is extensive bilateral paraspinal abscess extending from approximately T3-T9; The abnormality appears to be centered at the T5 level where there is vertebral body height loss and fluid and enhancement in the adjacent disc spaces suggesting discitis osteomyelitis; A portion of the abnormal fluid collection extends posteriorly on the left at C5- C6; The right lower lobe airspace consolidation has a connection with the adjacent right paraspinal abscess. Lumbar spine MRI: Significant change from prior exam; No definite acute findings. Chest CT: Abnormal bilateral paraspinal fluid collection extending from approximately T3-T8; The appearance is highly suggestive of a paraspinal abscess; Focal air space consolidation in the medial right lower lobe abutting the paraspinal process; This likely represents focal lung infection with possible central necrosis. S/p T4-5 decompressive laminectomy, evacuation epidural abscess and granulation tissue; Evacuation thoracic paraspinous abscess 05/26. 3 out of 4 blood cultures grew MSSA. Repeat blood cultures are negative. Fluid culture also grew MSSA. - wound care, weightbearing and anticoagulation per neurosurgery. - antibiotics per ID. currently on Ancef and rifampin. Will need 6-8 weeks of treatment followed by oral suppression per ID recommendations. - pain control as needed with a bowel regimen. - physical therapy. - incentive spirometry. - Breathing treatments as needed. Anemia Likely s/t sepsis. Postop. - follow CBC. - treat underlying infections. Hyperglycemia Blood sugar was elevated on admission. Likely a stress reaction. A1c 5.3%. - follow BMP as needed. IV drug abuse: Cautious with Narcotics with this patient. I discussed with the patient to try to wean off pain medications Last used 6 months ago. - Cessation instruction. Nicotine dependence The patient smokes 5 cigarettes daily. - Cessation instruction given. PPx: Per neurosurgery. Mehreen Murrell MD Jun 05, 2016 18:12
[2016-06-05 21:11] VITALS: BP 101/58; PULSE 107; RESP 18; TEMP 99.5; O2SAT 98
[2016-06-06 01:08] VITALS: PULSE 112; RESP 16; O2SAT 95
[2016-06-06] MEDS: ceFAZolin 2 GM PREMIX 50 ML IV SCH ×2 (01:09→08:24)
[2016-06-06] MEDS: HYDROmorphone HCL PF 1 MG/ML VIAL IV PRN ×4 (01:09→18:47)
[2016-06-06] MEDS: HYDROmorphone HCL 4 MG TAB PO PRN ×7 (01:53→21:00)
[2016-06-06 06:27] LABS: HEMATOCRIT 21.4 % (39.0-51.0); MEAN CELL VOLUME 67.7 FL (80.0-100.0); MEAN CORPUSCULAR HEMOGLOBIN 22.8 PG (27.0-34.0); MEAN CORPUSCULAR HGB CONC 33.7 % (32.0-36.0); PLATELET COUNT 204 TH/MM3 (150-450); RED BLOOD COUNT 3.16 MIL/MM3 (4.50-5.90); RED CELL DISTRIBUTION WIDTH 19.4 % (11.6-17.2); WHITE BLOOD COUNT 2.9 TH/MM3 (4.0-11.0)
[2016-06-06 06:30] LABS: HEMO FLAGS AUTO DIFF
[2016-06-06 06:41] LABS: BICARBONATE 27.8 MEQ/L (21.0-32.0); POTASSIUM 4.1 MEQ/L (3.5-5.1)
[2016-06-06 08:17] LABS: BANDS 5 % (0-6); BASOPHILS 1 % (0-2); EOSINOPHILS 1 % (0-4); NEUTROPHIL # MANUAL DIFF 2.3 TH/MM3 (1.8-7.7); POLYS (SEG NEUTROPHILS) 76 % (16-70); WBC DIFF SAMPLE 100
[2016-06-06 08:18] LABS: KERATOCYTES OCC (NORMAL); PLATELET ESTIMATE SMEAR NORMAL (NORMAL); PLATELET MORPHOLOGY NORMAL (NORMAL); SCAN/DIFF FINAL DIFF MANUAL
[2016-06-06] MEDS: SENNOSIDES 8.6 MG TAB PO SCH (08:21)
[2016-06-06] MEDS: MORPHINE SULFATE 15 MG CONTROLLED RELEASE TAB PO SCH ×2 (08:21→21:00)
[2016-06-06] MEDS: DOCUSATE SODIUM 100 MG CAP PO SCH ×2 (08:21→21:00)
[2016-06-06] MEDS: RIFAMPIN 150 MG CAP PO SCH (08:21)
[2016-06-06 08:22] VITALS: BP 114/69; PULSE 110; RESP 16; TEMP 98.3; O2SAT 97
[2016-06-06] MEDS: SODIUM CHLORIDE 0.9% FLUSH 10 ML FLUSH IV FLUSH SCH (08:24)
[2016-06-06] MEDS: SODIUM CHLORIDE 0.9% FLUSH 10 ML FLUSH IVF SCH (08:25)
[2016-06-06] MEDS: SODIUM CHLORIDE 0.9% FLUSH 5 ML FLUSH IVF SCH ×2 (08:25→21:00)
--- NOTE | 2016-06-06 11:10 | HHI.NSPN ---
(Darrion Garcia) Note Status Status: Progress Note (Darrion Garcia) Interval History Diagnosis 1. Thoracic paraspinal abscess primarily T3-T9 levels 2. Thoracic osteomyelitis primarily T5 level the significant bone destruction Interval History 05/25/16: T4-T5 laminectomy, evacuation epidural and paraspinous abscess 05/29/16: Drain discontinued. 06/01/16: Caro catheter placed. Patient states he is doing all right when seen this evening. 06/02/16: Patient doing well today. States that prior to Caro placement Interventional Radiology had to drain an abscess. Culture sent & pending. 06/05/16: Patient had new Caro placed by Interventional Radiology yesterday. Some pain to left shoulder since he slept on it during the night, otherwise he is doing "pretty good." He did state that which ever side he slept on that shoulder was sore when he would wake up. (Darrion Garcia) Labs, Micro, & Vital Signs Results Allergies Coded Allergies Type Severity Reaction Last Updated Verified Aspirin Allergy Severe 09/23/13 Yes Recent Impressions Catheter Placement X-Ray 06/05/16 0000 Signed Impressions: Service Date/Time: Sunday, June 05, 2016 10:50 - CONCLUSION: Uncomplicated Caro catheter placement as above. Chest wall cerclage stitch can be removed in approximately 10-14 days Valentin Narvaez MD 06/04////// 06:00 18:00 06:00 18:00 06:00 18:00 Intake Total 660 ml 500 ml 480 ml 720 ml 480 ml Output Total 1100 ml 500 ml 800 ml Balance -440 ml 0 ml 480 ml -80 ml 480 ml Intake Oral 660 ml 500 ml 480 ml 720 ml 480 ml Output Urine Total 1100 ml 500 ml 800 ml # Voids 2 2 # Bowel Movements 0 1 Laboratory Tests Test 06/05/16 06/06/16 15:15 06:00 White Blood Count 3.6 TH/MM3 2.9 TH/MM3 Red Blood Count 3.55 MIL/MM3 3.16 MIL/MM3 Hemoglobin 8.1 GM/DL 7.2 GM/DL Hematocrit 24.2 % 21.4 % Mean Corpuscular Volume 68.2 FL 67.7 FL Mean Corpuscular Hemoglobin 22.8 PG 22.8 PG Mean Corpuscular Hemoglobin 33.4 % 33.7 % Concent Red Cell Distribution Width 19.2 % 19.4 % Platelet Count 193 TH/MM3 204 TH/MM3 Mean Platelet Volume 8.0 FL 8.2 FL Neutrophils (%) (Auto) 61.4 % % Lymphocytes (%) (Auto) 22.0 % % Monocytes (%) (Auto) 14.2 % % Eosinophils (%) (Auto) 1.3 % % Basophils (%) (Auto) 1.1 % % Neutrophils # (Auto) 2.2 TH/MM3 TH/MM3 Lymphocytes # (Auto) 0.8 TH/MM3 TH/MM3 Monocytes # (Auto) 0.5 TH/MM3 TH/MM3 Eosinophils # (Auto) 0.0 TH/MM3 TH/MM3 Basophils # (Auto) 0.0 TH/MM3 TH/MM3 CBC Comment AUTO DIFF AUTO DIFF Differential Comment AUTO DIFF FINAL DIFF CONFIRMED MANUAL Platelet Estimate NORMAL NORMAL Platelet Morphology Comment NORMAL NORMAL Ovalocytes 1+ Keratocytes OCC OCC Sodium Level 128 MEQ/L 130 MEQ/L Potassium Level 3.8 MEQ/L 4.1 MEQ/L Chloride Level 92 MEQ/L 94 MEQ/L Carbon Dioxide Level 27.9 MEQ/L 27.8 MEQ/L Anion Gap 8 MEQ/L 8 MEQ/L Blood Urea Nitrogen 30 MG/DL 20 MG/DL Creatinine 0.82 MG/DL 0.79 MG/DL Estimat Glomerular Filtration 103 ML/MIN 107 ML/MIN Rate Random Glucose 116 MG/DL 173 MG/DL Calcium Level 8.0 MG/DL 8.0 MG/DL Differential Total Cells 100 Counted Neutrophils % (Manual) 76 % Band Neutrophils % 5 % Lymphocytes % 11 % Monocytes % 6 % Eosinophils % 1 % Basophils % 1 % Neutrophils # (Manual) 2.3 TH/MM3 Constitutional Vital Signs Date Time Temp Pulse Resp B/P Pulse Ox O2 Delivery O2 Flow Rate FiO2 06/06/16 08:22 98.3 110 16 114/69 97 06/06/16 01:08 112 16 95 06/05/16 21:11 99.5 107 18 101/58 98 06/05/16 16:55 97.1 96 17 124/67 96 06/05/16 12:30 97.6 101 16 111/55 97 06/05/16 11:50 52 18 106/62 97 06/05/16 11:35 98.2 47 19 102/75 96 06/06/16 07:00 Intake Total 1200 ml Output Total 800 ml Balance 400 ml (Darrion Garcia) Review of Systems/Exam ROS Neuro: Denies any headache, dizziness, numbness or tingling. Neck: Denies any neck pain. Respiratory: Denies any shortness of breath or productive cough. Cardiac: Denies any chest pain, palpitation or irregular heart rate. GI: Denies any abdominal pain, nausea, vomiting or bowel incontinence. : Denies any bladder incontinence. Back: Still with pain to the back. Extremities: Pain to the left shoulder from sleeping on that side during the night. Exam Constitutional: Laying in bed watching TV, no apparent distress. HEENT: Normocephalic, atraumatic. Neck: Soft, supple, no meningismus or nuchal rigidity. Resp: CTAB w/o W/R/R, equal excursion, non-laboured, on RA. CV: RRR w/o M/G/R, cap refill < 2 sec, radial & pedal pulses 2+ bilaterally, no pedal edema. GI: Abdomen soft, non-tender, positive bowel sounds. Back: TTP over surgical incision, dressing dry & intact, incision w/intact steri -strips, w/o any evident drainage, erythema or streaking. Extremities: [place], no clubbing, deformity or discolouration. Neuro: AAOx3. Speech clear & appropriate. Follows commands. Motor strength equal throughout all major extensor & flexion muscle groups. Sensation grossly intact to light touch all extremities. (Darrion Garcia) Medications Current Medications Current Medications Medications (Trade) Dose Ordered Sig/Rony Route Start Time Stop Time Status Last Admin (Narcan Inj) 0.4 mg UNSCH PRN IV 05/24/16 04:30 (D50w (Vial) Inj) 25 ml UNSCH PRN IV PUSH 05/24/16 14:15 (Glucagon Inj) 1 mg UNSCH PRN OTHER 05/24/16 14:15 Albuterol Sulfate 2 puff 2 puff Q4H PRN INH 05/24/16 16:00 06/03/16 08:24 (Ancef 2 Gm Premix) 50 ml @ 100 mls/hr Q8H IV 05/25/16 17:00 06/06/16 08:24 (Colace) 100 mg BID PO 05/25/16 21:00 06/06/16 08:21 (Senokot) 17.2 mg DAILY PO 05/25/16 18:00 06/06/16 08:21 (NS Flush) 2 ml UNSCH PRN IVF 05/25/16 21:45 05/29/16 22:48 (NS Flush) 2 ml BID IVF 05/26/16 09:00 06/05/16 20:50 (Rifampin) 300 mg Q12HR PO 05/30/16 13:00 06/06/16 08:21 (Dilaudid Pf Inj) 1 mg Q4H PRN IV 05/30/16 14:41 06/06/16 04:46 (Dilaudid) 4 mg Q3H PRN PO 05/30/16 20:00 06/06/16 10:52 ([place] 10-325 Mg) 1 tab Q4H PRN PO 05/30/16 18:00 06/04/16 23:36 (Oramorph Sr) 15 mg Q12HR PO 05/31/16 21:15 06/06/16 08:21 (NS Flush) See Protocol DAILY IV FLUSH 06/02/16 09:00 06/06/16 08:24 (NS Flush) See Protocol UNSCH PRN IV FLUSH 06/01/16 10:15 (Heparin Central Flush) See Protocol DAILY IV FLUSH 06/02/16 09:00 06/06/16 08:22 (Heparin Central Flush) See Protocol UNSCH PRN IV FLUSH 06/01/16 10:15 (NS Flush) UNSCH PRN IV FLUSH 06/01/16 10:15 (Tylenol) 650 mg Q4H PRN PO 06/03/16 21:25 (NS Flush) DAILY IVF 06/06/16 09:00 (Heparin Central Flush) DAILY IV FLUSH 06/06/16 09:00 (NS Flush) UNSCH PRN IVF 06/05/16 11:45 (Heparin Central Flush) UNSCH PRN IV FLUSH 06/05/16 11:45 (Darrion Garcia) Medical Decision Making MDM Remarks Impression: 1. Thoracic paraspinal abscess primarily T3-T9 levels 2. Thoracic osteomyelitis primarily T5 level with significant bone destruction 3. Stable neurologic function status post thoracic laminectomy, evacuation epidural and paraspinous abscess 4. Thoracic spine relatively stable on CT scan 5. Remains afebrile since at 2000 A. Max temp past 24 hrs 99.5 degrees 6. Pain essentially controlled on current medication regimen (Darrion Garcia) Plan Plan Remarks Plan of care discussed with patient. PT & OT. Brace when OOB. Antibiotics per Infectious Disease. Will most likely need mid thoracic spine reconstruction & fusion surgery following completion of antibiotics. Continue present pain medication regimen. Blood cultures with no growth from 06/03. (Darrion Garcia) Attending Statement I have personally seen and examined the patient on the date of this note. Pertinent documentation and study results have been reviewed by the undersigned. I have personally developed the treatment plan and performed medical decision making. Agree with findings, exam, and treatment plan as noted above. (Jeffry Pickard MD) Darrion Garcia Jun 06, 2016 11:10 Jeffry Pickard MD Jun 07, 2016 00:07
--- NOTE | 2016-06-06 11:27 | HHI.IDPN ---
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 Recently treated at [facility] for ?lung abscess and recurrent spinal abscess. Now with epidural abscess same area and possibly extending into lung. Notes reviewed Temps ok No new complaint Feels good WBC has been decreasing C/S fluid RSC joint negative No new (+) BC OR C/S with MSSA BC also with MSSA Repeat BC negative so far Echo report - good study, valves all look normal Sputum C/S MSSA ESR 65 CRP 13 Voiding ok No rash No diarrhea Antibiotics Ancef Rifampin Lines Caro RIJ PIV Past Medical History Reviewed Allergies: Coded Allergies: Aspirin (Verified Allergy, Severe, 09/23/13) PATIENT STATES HE HAD A HOLE IN HIS HEART WHEN HE WAS BORN AND HE WAS TOLD NOT TO TAKE ASPIRIN. JAIL MAR STATES NO KNOWN ALLERGIES PATIENT DENIES ALLERGY TO ASPIRIN. 04/01/13 Objective . Vital Signs Date Time Temp Pulse Resp B/P Pulse Ox O2 Delivery O2 Flow Rate FiO2 06/06/16 08:22 98.3 110 16 114/69 97 06/06/16 01:08 112 16 95 06/05/16 21:11 99.5 107 18 101/58 98 06/05/16 16:55 97.1 96 17 124/67 96 06/05/16 12:30 97.6 101 16 111/55 97 06/05/16 11:50 52 18 106/62 97 06/05/16 11:35 98.2 47 19 102/75 96 06/05/16 06/05/16 06/06/16 15:00 23:00 07:00 Intake Total 720 ml 480 ml Output Total 800 ml Balance -80 ml 480 ml Intake Oral 720 ml 480 ml Output Urine Total 800 ml # Voids 2 # Bowel Movements 0 1 . Laboratory Tests Test 06/05/16 06/06/16 15:15 06:00 White Blood Count 3.6 TH/MM3 2.9 TH/MM3 Red Blood Count 3.55 MIL/MM3 3.16 MIL/MM3 Hemoglobin 8.1 GM/DL 7.2 GM/DL Hematocrit 24.2 % 21.4 % Mean Corpuscular Volume 68.2 FL 67.7 FL Mean Corpuscular Hemoglobin 22.8 PG 22.8 PG Mean Corpuscular Hemoglobin 33.4 % 33.7 % Concent Red Cell Distribution Width 19.2 % 19.4 % Platelet Count 193 TH/MM3 204 TH/MM3 Mean Platelet Volume 8.0 FL 8.2 FL Neutrophils (%) (Auto) 61.4 % % Lymphocytes (%) (Auto) 22.0 % % Monocytes (%) (Auto) 14.2 % % Eosinophils (%) (Auto) 1.3 % % Basophils (%) (Auto) 1.1 % % Neutrophils # (Auto) 2.2 TH/MM3 TH/MM3 Lymphocytes # (Auto) 0.8 TH/MM3 TH/MM3 Monocytes # (Auto) 0.5 TH/MM3 TH/MM3 Eosinophils # (Auto) 0.0 TH/MM3 TH/MM3 Basophils # (Auto) 0.0 TH/MM3 TH/MM3 CBC Comment AUTO DIFF AUTO DIFF Differential Comment AUTO DIFF FINAL DIFF CONFIRMED MANUAL Platelet Estimate NORMAL NORMAL Platelet Morphology Comment NORMAL NORMAL Ovalocytes 1+ Keratocytes OCC OCC Differential Total Cells 100 Counted Neutrophils % (Manual) 76 % Band Neutrophils % 5 % Lymphocytes % 11 % Monocytes % 6 % Eosinophils % 1 % Basophils % 1 % Neutrophils # (Manual) 2.3 TH/MM3 Laboratory Tests Test 06/05/16 06/06/16 15:15 06:00 Sodium Level 128 MEQ/L 130 MEQ/L Potassium Level 3.8 MEQ/L 4.1 MEQ/L Chloride Level 92 MEQ/L 94 MEQ/L Carbon Dioxide Level 27.9 MEQ/L 27.8 MEQ/L Anion Gap 8 MEQ/L 8 MEQ/L Blood Urea Nitrogen 30 MG/DL 20 MG/DL Creatinine 0.82 MG/DL 0.79 MG/DL Estimat Glomerular Filtration 103 ML/MIN 107 ML/MIN Rate Random Glucose 116 MG/DL 173 MG/DL Calcium Level 8.0 MG/DL 8.0 MG/DL Microbiology Date/Time Procedure Status Source Growth 06/03/16 21:57 Aerobic Blood Culture - Preliminary Resulted Blood Other NO GROWTH IN 3 DAYS 06/03/16 21:57 Anaerobic Blood Culture - Final Resulted Blood Other ONLY AEROBIC CULTURE ORDERED Imaging Catheter Placement X-Ray 06/05/16 0000 Signed Impressions: Service Date/Time: Sunday, June 05, 2016 10:50 - CONCLUSION: Uncomplicated Caro catheter placement as above. Chest wall cerclage stitch can be removed in approximately 10-14 days Valentin Narvaez MD Thoracic Spine CT 06/02/16 0000 Signed Impressions: Service Date/Time: Thursday, June 02, 2016 20:27 - CONCLUSION: 1. Extensive lytic destructive process along the lower endplate at T5, T6 and T7 vertebral bodies consistent with osteomyelitis. 2. There is osteomyelitis at T7 given the increased sclerosis. 3. Anterior paraspinal abscess containing air is again seen from lower T2 down to T9 level. 4. The right lower lobe mass/consolidation seen abutting the mediastinum medially is again noted. Roni Dominique MD Joint Aspiration/Injection 06/01/16 0000 Signed Impressions: Service Date/Time: May 16:59 - CONCLUSION: Uncomplicated aspiration as above. Valentin Narvaez MD Chest X-Ray 05/25/16 0000 Signed Impressions: Service Date/Time: May 22:46 - CONCLUSION: Mild vascular congestion and bibasilar atelectasis. Roshan Jain MD Thoracic Spine MRI 05/24/16 0000 Signed Impressions: Service Date/Time: Tuesday, May 24, 2016 10:40 - CONCLUSION: 1. There is extensive bilateral paraspinal abscess extending from approximately T3-T9. The abnormality appears to be centered at the T5 level where there is vertebral body height loss and fluid and enhancement in the adjacent disc spaces suggesting discitis osteomyelitis. A portion of the abnormal fluid collection extends posteriorly on the left at C5-C6. 2. The right lower lobe airspace consolidation has a connection with the adjacent right paraspinal abscess. 3. No spinal canal stenosis is identified. There is mild epidural enhancement in the anterior epidural space at T5-T7 but no epidural abscess is appreciated. Roshan Galvez MD Lumbar Spine MRI 05/24/16 0000 Signed Impressions: Service Date/Time: Tuesday, May 24, 2016 10:40 - CONCLUSION: Significant change from prior exam. No definite acute findings. See above discussion. Roshan Jain MD Chest CT 05/24/16 0000 Signed Impressions: Service Date/Time: Tuesday, May 24, 2016 10:21 - CONCLUSION: 1. Abnormal bilateral paraspinal fluid collection extending from approximately T3-T8. The appearance is highly suggestive of a paraspinal abscess. 2. Focal air space consolidation in the medial right lower lobe abutting the paraspinal process. This likely represents focal lung infection with possible central necrosis. 3. Abnormal appearance of the kidneys suggesting interstitial nephritis or ATN. 4. Partially visualized upper abdomen suggests retroperitoneal lymphadenopathy. Roshan Galvez MD Thoracic Spine MRI 05/24/16 0000 Signed Impressions: Service Date/Time: Tuesday, May 24, 2016 10:40 - CONCLUSION: 1. There is extensive bilateral paraspinal abscess extending from approximately T3-T9. The abnormality appears to be centered at the T5 level where there is vertebral body height loss and fluid and enhancement in the adjacent disc spaces suggesting discitis osteomyelitis. A portion of the abnormal fluid collection extends posteriorly on the left at C5-C6. 2. The right lower lobe airspace consolidation has a connection with the adjacent right paraspinal abscess. 3. No spinal canal stenosis is identified. There is mild epidural enhancement in the anterior epidural space at T5-T7 but no epidural abscess is appreciated. Roshan Galvez MD Lumbar Spine MRI 05/24/16 0000 Signed Impressions: Service Date/Time: Tuesday, May 24, 2016 10:40 - CONCLUSION: Significant change from prior exam. No definite acute findings. See above discussion. Roshan Jain MD Chest CT 05/24/16 0000 Signed Impressions: Service Date/Time: Tuesday, May 24, 2016 10:21 - CONCLUSION: 1. Abnormal bilateral paraspinal fluid collection extending from approximately T3-T8. The appearance is highly suggestive of a paraspinal abscess. 2. Focal air space consolidation in the medial right lower lobe abutting the paraspinal process. This likely represents focal lung infection with possible central necrosis. 3. Abnormal appearance of the kidneys suggesting interstitial nephritis or ATN. 4. Partially visualized upper abdomen suggests retroperitoneal lymphadenopathy. Roshan Galvez MD Physical Exam GENERAL: awake and alert, NAD SKIN: Warm and dry. No generalized rash or ecchymosis. HEENT: Wellman conjunctivae, no petechia or hemorrhage. No scleral icterus. No injection or drainage. Moist oral mucosa. NECK: Supple, nontender, no meningeal signs. Caro site with some blood at site. Previous swelling over RSC joint very minimal now CARDIOVASCULAR: Regular rate and rhythm without murmurs, gallops, or rubs. No murmur. RESPIRATORY: Clear to auscultation. Breath sounds equal bilaterally. He has few scattered rhonchi. Decreased at the bases. GASTROINTESTINAL: Abdomen soft, mildly tender, mildly distended. No guarding or rebound. Bowel sounds are present and normoactive. No organomegaly. MUSCULOSKELETAL: Extremities without clubbing, cyanosis, or edema. No joint tenderness, effusion. No calf tenderness. NEUROLOGICAL: Non-focal PSYCH: Normal affect, calm and cooperative. 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 S/P OR - per NS, abscess did not communicate in thoracic cavoty Pneumonia, better Previous Rx for osteo thoracic, removal of toracic hardware last 2013, with MSSA Previous Rx MSSA osteo of spine 2011 Known IVDU Fluid collection over RSC joint, aspirated, C/S negative, looks better Neutropenia, ?meds, ?ancef, ?rifampin RECOMMENDATION Stop Ancef and Rifampin Follow CBC Use Rocephin for the MSSA Will need 6-8 weeks IV Abx from date of surgery - 6 weeks would be July 05 - 8 weeks would be July 19 - follow ESR to guide duration - then chronic oral suppression with Keflex or Dicloxacillin Labs weekly while on IV Abx: CBC, creat, LFT Follow C/S Monitor progress Follow temps Spoke with CM - patient is homeless and trying to find ways on how to give his Abx when he gets D/C Patient tells me that the surgeon has told him that he will stay in the hospital for 6 weeks to finish his Abx Genie Wadsworth MD Jun 06, 2016 11:27
[2016-06-06 12:35] VITALS: BP 115/57; PULSE 103; RESP 18; TEMP 97.8; O2SAT 95
[2016-06-06] MEDS: cefTRIAXone INJ 2,000 MG in SODIUM CHLORIDE 0.9% INJ 100 ML IV SCH (12:35)
--- NOTE | 2016-06-06 15:23 | HHI.PR ---
Subjective Remarks No fever or chills, afebrile despite neutropenia WBC 2.9 No chest pain or short of breath Objective Vitals Vital Signs Date Time Temp Pulse Resp B/P Pulse Ox O2 Delivery O2 Flow Rate FiO2 06/06/16 12:35 97.8 103 18 115/57 95 06/06/16 08:22 98.3 110 16 114/69 97 06/06/16 01:08 112 16 95 06/05/16 21:11 99.5 107 18 101/58 98 06/05/16 16:55 97.1 96 17 124/67 96 I/O 06/05/16 06/05/16 06/05/16 06/06/16 06/06/16 06/06/16 07:00 15:00 23:00 07:00 15:00 23:00 Intake Total 120 ml 720 ml 480 ml Output Total 800 ml 800 ml Balance 120 ml -80 ml 480 ml -800 ml Intake Oral 120 ml 720 ml 480 ml Output Urine Total 800 ml 800 ml # Voids 1 2 # Bowel Movements 0 1 0 Result Diagram: 06/06/16 0606/06/16 06 Objective Remarks GENERAL: This is a well-nourished, well-developed patient, in no apparent distress. CARDIOVASCULAR: Regular rate and rhythm without murmurs, gallops, or rubs. RESPIRATORY: Clear to auscultation. Breath sounds equal bilaterally. No wheezes , rales, or rhonchi. GASTROINTESTINAL: Abdomen soft, non-tender, nondistended. Normal active bowel sounds MUSCULOSKELETAL: Extremities without clubbing, cyanosis, or edema. NEURO: Alert & Oriented x4 to person, place, time, situation. Moves all ext x4 Procedures T4-5 decompressive laminectomy, evacuation epidural abscess and granulation tissue Evacuation thoracic paraspinous abscess A/P Assessment and Plan 06/05: Stable, had his right IJ line, continue with neurosurgery recommendations 06/06: Asymptomatic neutropenia, ID recommended holding rifampin and Ancef, monitor WBC 41-year-old male with: Multiple infections/ Sepsis Thoracic spine MRI shows: There is extensive bilateral paraspinal abscess extending from approximately T3-T9; The abnormality appears to be centered at the T5 level where there is vertebral body height loss and fluid and enhancement in the adjacent disc spaces suggesting discitis osteomyelitis; A portion of the abnormal fluid collection extends posteriorly on the left at C5- C6; The right lower lobe airspace consolidation has a connection with the adjacent right paraspinal abscess. Lumbar spine MRI: Significant change from prior exam; No definite acute findings. Chest CT: Abnormal bilateral paraspinal fluid collection extending from approximately T3-T8; The appearance is highly suggestive of a paraspinal abscess; Focal air space consolidation in the medial right lower lobe abutting the paraspinal process; This likely represents focal lung infection with possible central necrosis. S/p T4-5 decompressive laminectomy, evacuation epidural abscess and granulation tissue; Evacuation thoracic paraspinous abscess 05/26. 3 out of 4 blood cultures grew MSSA. Repeat blood cultures are negative. Fluid culture also grew MSSA. - wound care, weightbearing and anticoagulation per neurosurgery. - antibiotics per ID. currently on Ancef and rifampin. Will need 6-8 weeks of treatment followed by oral suppression per ID recommendations. - pain control as needed with a bowel regimen. - physical therapy. - incentive spirometry. - Breathing treatments as needed. Anemia Likely s/t sepsis. Postop. - follow CBC. - treat underlying infections. Hyperglycemia Blood sugar was elevated on admission. Likely a stress reaction. A1c 5.3%. - follow BMP as needed. IV drug abuse: Cautious with Narcotics with this patient. I discussed with the patient to try to wean off pain medications Last used 6 months ago. - Cessation instruction. Nicotine dependence The patient smokes 5 cigarettes daily. - Cessation instruction given. PPx: Per neurosurgery. Mehreen Murrell MD Jun 06, 2016 15:23
[2016-06-06 15:51] VITALS: BP 124/70; PULSE 101; RESP 16; TEMP 96; O2SAT 96
[2016-06-06 21:01] VITALS: BP 121/60; PULSE 108; RESP 18; TEMP 98.7; O2SAT 97
[2016-06-07] MEDS: SODIUM CHLORIDE 0.9% FLUSH 10 ML FLUSH IVF PRN ×2 (00:10→05:29)
[2016-06-07] MEDS: HYDROmorphone HCL PF 1 MG/ML VIAL IV PRN ×5 (00:10→20:20)
[2016-06-07] MEDS: HYDROmorphone HCL 4 MG TAB PO PRN ×8 (01:16→21:53)
[2016-06-07 04:28] LABS: HEMATOCRIT 22.4 % (39.0-51.0); MEAN CELL VOLUME 67.6 FL (80.0-100.0); MEAN CORPUSCULAR HEMOGLOBIN 22.6 PG (27.0-34.0); MEAN CORPUSCULAR HGB CONC 33.4 % (32.0-36.0); PLATELET COUNT 230 TH/MM3 (150-450); RED BLOOD COUNT 3.31 MIL/MM3 (4.50-5.90); RED CELL DISTRIBUTION WIDTH 19.1 % (11.6-17.2); WHITE BLOOD COUNT 2.9 TH/MM3 (4.0-11.0)
[2016-06-07 04:37] LABS: HEMO FLAGS AUTO DIFF
[2016-06-07 05:18] LABS: BANDS 4 % (0-6); NEUTROPHIL # MANUAL DIFF 2.1 TH/MM3 (1.8-7.7); POLYS (SEG NEUTROPHILS) 68 % (16-70); WBC DIFF SAMPLE 25
[2016-06-07 05:20] LABS: PLATELET ESTIMATE SMEAR NORMAL (NORMAL); PLATELET MORPHOLOGY NORMAL (NORMAL); SCAN/DIFF FINAL DIFF MANUAL
[2016-06-07 08:00] VITALS: BP 109/67; PULSE 104; RESP 17; TEMP 98.8; O2SAT 95
[2016-06-07] MEDS: MORPHINE SULFATE 15 MG CONTROLLED RELEASE TAB PO SCH ×2 (08:28→20:18)
[2016-06-07] MEDS: SODIUM CHLORIDE 0.9% FLUSH 10 ML FLUSH IV FLUSH SCH (08:28)
[2016-06-07] MEDS: SODIUM CHLORIDE 0.9% FLUSH 10 ML FLUSH IVF SCH (08:28)
[2016-06-07] MEDS: DOCUSATE SODIUM 100 MG CAP PO SCH ×2 (08:28→20:18)
[2016-06-07] MEDS: SODIUM CHLORIDE 0.9% FLUSH 5 ML FLUSH IVF SCH ×2 (08:28→20:18)
[2016-06-07] MEDS: SENNOSIDES 8.6 MG TAB PO SCH (08:29)
[2016-06-07 12:00] VITALS: BP 127/70; PULSE 113; RESP 17; TEMP 98.9; O2SAT 97
[2016-06-07] MEDS: cefTRIAXone INJ 2,000 MG in SODIUM CHLORIDE 0.9% INJ 100 ML IV SCH (12:16)
--- NOTE | 2016-06-07 14:31 | HHI.NSPN ---
(Darrion Garcia) Note Status Status: Progress Note (Darrion Garcia) Interval History Diagnosis 1. Thoracic paraspinal abscess primarily T3-T9 levels 2. Thoracic osteomyelitis primarily T5 level the significant bone destruction Interval History 05/25/16: T4-T5 laminectomy, evacuation epidural and paraspinous abscess 05/29/16: Drain discontinued. 06/01/16: Caro catheter placed. Patient states he is doing all right when seen this evening. 06/02/16: Patient doing well today. States that prior to Caro placement Interventional Radiology had to drain an abscess. Culture sent & pending. 06/05/16: Caro replaced by Interventional Radiology. 06/06/16: Some pain to left shoulder since he slept on it during the night, otherwise he is doing "pretty good." He did state that which ever side he slept on that shoulder was sore when he would wake up. 06/07/16: Still complains of bilateral shoulder pain that radiates between the left & right. He has no other complaints. (Darrion Garcia) Labs, Micro, & Vital Signs Results Allergies Coded Allergies Type Severity Reaction Last Updated Verified Aspirin Allergy Severe 09/23/13 Yes Recent Impressions Catheter Placement X-Ray 06/05/16 0000 Signed Impressions: Service Date/Time: Sunday, June 05, 2016 10:50 - CONCLUSION: Uncomplicated Caro catheter placement as above. Chest wall cerclage stitch can be removed in approximately 10-14 days Valentin Narvaez MD 06/05////// 06:00 18:00 06:00 18:00 06:00 18:00 Intake Total 480 ml 720 ml 480 ml 720 ml Output Total 800 ml 800 ml 1580 ml Balance 480 ml -80 ml 480 ml -800 ml -860 ml Intake Oral 480 ml 720 ml 480 ml 720 ml Output Urine Total 800 ml 800 ml 1580 ml # Voids 2 2 # Bowel Movements 0 1 0 Laboratory Tests Test 06/05/16 06/06/16 06/07/16 15:15 06:00 04:15 White Blood Count 3.6 TH/MM3 2.9 TH/MM3 2.9 TH/MM3 Red Blood Count 3.55 MIL/MM3 3.16 MIL/MM3 3.31 MIL/MM3 Hemoglobin 8.1 GM/DL 7.2 GM/DL 7.5 GM/DL Hematocrit 24.2 % 21.4 % 22.4 % Mean Corpuscular Volume 68.2 FL 67.7 FL 67.6 FL Mean Corpuscular Hemoglobin 22.8 PG 22.8 PG 22.6 PG Mean Corpuscular Hemoglobin 33.4 % 33.7 % 33.4 % Concent Red Cell Distribution Width 19.2 % 19.4 % 19.1 % Platelet Count 193 TH/MM3 204 TH/MM3 230 TH/MM3 Mean Platelet Volume 8.0 FL 8.2 FL 7.7 FL Neutrophils (%) (Auto) 61.4 % % % Lymphocytes (%) (Auto) 22.0 % % % Monocytes (%) (Auto) 14.2 % % % Eosinophils (%) (Auto) 1.3 % % % Basophils (%) (Auto) 1.1 % % % Neutrophils # (Auto) 2.2 TH/MM3 TH/MM3 TH/MM3 Lymphocytes # (Auto) 0.8 TH/MM3 TH/MM3 TH/MM3 Monocytes # (Auto) 0.5 TH/MM3 TH/MM3 TH/MM3 Eosinophils # (Auto) 0.0 TH/MM3 TH/MM3 TH/MM3 Basophils # (Auto) 0.0 TH/MM3 TH/MM3 TH/MM3 CBC Comment AUTO DIFF AUTO DIFF AUTO DIFF Differential Comment AUTO DIFF FINAL DIFF FINAL DIFF CONFIRMED MANUAL MANUAL Platelet Estimate NORMAL NORMAL NORMAL Platelet Morphology Comment NORMAL NORMAL NORMAL Ovalocytes 1+ Keratocytes OCC OCC Sodium Level 128 MEQ/L 130 MEQ/L Potassium Level 3.8 MEQ/L 4.1 MEQ/L Chloride Level 92 MEQ/L 94 MEQ/L Carbon Dioxide Level 27.9 MEQ/L 27.8 MEQ/L Anion Gap 8 MEQ/L 8 MEQ/L Blood Urea Nitrogen 30 MG/DL 20 MG/DL Creatinine 0.82 MG/DL 0.79 MG/DL Estimat Glomerular Filtration 103 ML/MIN 107 ML/MIN Rate Random Glucose 116 MG/DL 173 MG/DL Calcium Level 8.0 MG/DL 8.0 MG/DL Differential Total Cells 100 25 Counted Neutrophils % (Manual) 76 % 68 % Band Neutrophils % 5 % 4 % Lymphocytes % 11 % 20 % Monocytes % 6 % 8 % Eosinophils % 1 % Basophils % 1 % Neutrophils # (Manual) 2.3 TH/MM3 2.1 TH/MM3 Constitutional Vital Signs Date Time Temp Pulse Resp B/P Pulse Ox O2 Delivery O2 Flow Rate FiO2 06/07/16 12:00 98.9 113 17 127/70 97 06/07/16 08:26 18 06/07/16 08:00 98.8 104 17 109/67 95 Manual Cuff/Auscultation 06/06/16 21:01 98.7 108 18 121/60 97 06/06/16 15:51 96.0 101 16 124/70 96 06/07/16 07:00 Intake Total 720 ml Output Total 1500 ml Balance -780 ml (Darrion Garcia) Review of Systems/Exam ROS Neuro: Denies any headache, dizziness, numbness or tingling. Neck: Denies any neck pain. Respiratory: Denies any shortness of breath or productive cough. Cardiac: Denies any chest pain, palpitation or irregular heart rate. GI: Denies any abdominal pain, nausea, vomiting or bowel incontinence. : Denies any bladder incontinence. Back: Some pain to the back but better. Extremities: Bilateral shoulder pain that goes between the left and right. Exam Constitutional: Laying in bed watching TV, no apparent distress, slightly flat affect. HEENT: Normocephalic, atraumatic. Neck: Soft, supple, no meningismus or nuchal rigidity. Resp: CTAB w/o W/R/R, equal excursion, non-laboured, on RA. CV: RRR w/o M/G/R, cap refill < 2 sec. GI: Abdomen soft, non-tender, positive bowel sounds. Back: TTP over surgical incision, dressing dry & intact, incision w/intact steri -strips, w/o any evident drainage, erythema or streaking. Extremities: JENKINS, no clubbing, deformity or discolouration. Neuro: AAOx3. Speech clear & appropriate. Follows commands. Motor strength equal throughout all major extensor & flexion muscle groups. Sensation grossly intact to light touch all extremities. (Darrion Garcia) Medications Current Medications Current Medications Medications (Trade) Dose Ordered Sig/Rony Route Start Time Stop Time Status Last Admin (Narcan Inj) 0.4 mg UNSCH PRN IV 05/24/16 04:30 (D50w (Vial) Inj) 25 ml UNSCH PRN IV PUSH 05/24/16 14:15 (Glucagon Inj) 1 mg UNSCH PRN OTHER 05/24/16 14:15 (Ventolin Hfa Inh) 2 puff Q4H PRN INH 05/24/16 16:00 06/03/16 08:24 (Colace) 100 mg BID PO 05/25/16 21:00 06/07/16 08:28 (Senokot) 17.2 mg DAILY PO 05/25/16 18:00 06/07/16 08:29 (NS Flush) 2 ml UNSCH PRN IVF 05/25/16 21:45 05/29/16 22:48 (NS Flush) 2 ml BID IVF 05/26/16 09:00 06/06/16 21:00 (Dilaudid Pf Inj) 1 mg Q4H PRN IV 05/30/16 14:41 06/07/16 10:45 (Dilaudid) 4 mg Q3H PRN PO 05/30/16 20:00 06/07/16 12:16 ([place] 10-325 Mg) 1 tab Q4H PRN PO 05/30/16 18:00 06/04/16 23:36 (Oramorph Sr) 15 mg Q12HR PO 05/31/16 21:15 06/07/16 08:28 (NS Flush) See Protocol DAILY IV FLUSH 06/02/16 09:00 06/07/16 08:28 (NS Flush) See Protocol UNSCH PRN IV FLUSH 06/01/16 10:15 (Heparin Central Flush) See Protocol DAILY IV FLUSH 06/02/16 09:00 06/07/16 08:27 (Heparin Central Flush) See Protocol UNSCH PRN IV FLUSH 06/01/16 10:15 (NS Flush) UNSCH PRN IV FLUSH 06/01/16 10:15 (Tylenol) 650 mg Q4H PRN PO 06/03/16 21:25 (NS Flush) DAILY IVF 06/06/16 09:00 (Heparin Central Flush) DAILY IV FLUSH 06/06/16 09:00 (NS Flush) UNSCH PRN IVF 06/05/16 11:45 06/07/16 05:29 Heparin Sodium (Porcine) UNSCH PRN IV FLUSH 06/05/16 11:45 (Rocephin Inj/NS Inj) 100 ml @ 200 mls/hr Q24H IV 06/06/16 13:00 06/07/16 12:16 (Darrion Garcia) Medical Decision Making MDM Remarks Impression: 1. Thoracic paraspinal abscess primarily T3-T9 levels 2. Thoracic osteomyelitis primarily T5 level with significant bone destruction 3. Stable neurologic function status post thoracic laminectomy, evacuation epidural and paraspinous abscess 4. Thoracic spine relatively stable on CT scan 5. Remains afebrile since at 2000 A. Max temp past 24 hrs 98.9 degrees 6. Pain essentially controlled on current medication regimen 7. No growth in blood culture from 06/03 8. No growth in body fluid from right subclavian site on 06/01 9. Haemoglobin trending down 10. Hyponatremia 11. Tachycardia (Darrion Garcia) Plan Plan Remarks Plan of care discussed with patient. PT & OT. Brace when OOB. Antibiotics per Infectious Disease. Will most likely need mid thoracic spine reconstruction & fusion surgery following completion of antibiotics. Continue present pain medication regimen. Consider starting patient on iron supplementation, IV vs PO. (Darrion Garcia) Attending Statement I have personally seen and examined the patient on the date of this note. Pertinent documentation and study results have been reviewed by the undersigned. I have personally developed the treatment plan and performed medical decision making. Agree with findings, exam, and treatment plan as noted above. Add iron supplement Follow-up hemoglobin (Jeffry Pickard MD) Darrion Garcia Jun 07, 2016 14:31 Jeffry Pickard MD Jun 07, 2016 18:01
[2016-06-07] MEDS: ATENOLOL 25 MG TAB PO SCH (14:43)
[2016-06-07 16:00] VITALS: BP 116/69; PULSE 94; RESP 17; TEMP 100.1; O2SAT 96
[2016-06-07 20:50] VITALS: BP 136/66; PULSE 99; RESP 16; TEMP 99.6; O2SAT 95
[2016-06-08] MEDS: HYDROmorphone HCL 4 MG TAB PO PRN ×7 (01:01→21:37)
[2016-06-08 01:20] VITALS: BP 124/73; PULSE 100; RESP 16; TEMP 97; O2SAT 96
[2016-06-08] MEDS: HYDROmorphone HCL PF 1 MG/ML VIAL IV PRN ×5 (02:34→20:20)
[2016-06-08 05:00] VITALS: BP 117/68; PULSE 98; RESP 18; TEMP 97.7; O2SAT 97
[2016-06-08 08:00] VITALS: BP 123/71; PULSE 104; RESP 17; TEMP 98.7; O2SAT 95
[2016-06-08] MEDS: DOCUSATE SODIUM 100 MG CAP PO SCH ×2 (09:00→20:20)
[2016-06-08] MEDS: SODIUM CHLORIDE 0.9% FLUSH 5 ML FLUSH IVF SCH ×2 (09:00→20:21)
[2016-06-08] MEDS: SENNOSIDES 8.6 MG TAB PO SCH (09:00)
[2016-06-08] MEDS: SODIUM CHLORIDE 0.9% FLUSH 10 ML FLUSH IVF SCH (09:00)
[2016-06-08] MEDS: SODIUM CHLORIDE 0.9% FLUSH 10 ML FLUSH IV FLUSH SCH (09:04)
[2016-06-08] MEDS: ATENOLOL 25 MG TAB PO SCH (09:05)
[2016-06-08] MEDS: MORPHINE SULFATE 15 MG CONTROLLED RELEASE TAB PO SCH ×2 (09:05→20:20)
[2016-06-08] MEDS: FERROUS SULFATE 325 MG (65 MG ELEMENTAL IRON) TAB PO SCH (09:05)
[2016-06-08 12:00] VITALS: BP 129/68; PULSE 94; RESP 17; TEMP 99.8; O2SAT 99
[2016-06-08] MEDS: cefTRIAXone INJ 2,000 MG in SODIUM CHLORIDE 0.9% INJ 100 ML IV SCH (12:12)
--- NOTE | 2016-06-08 12:25 | HHI.PR ---
Subjective Remarks Patient had a temperature of 100.1 this morning but he did not feel fever Heart rate improved after starting atenolol, neurosurgery following Objective Vitals Vital Signs Date Time Temp Pulse Resp B/P Pulse Ox O2 Delivery O2 Flow Rate FiO2 06/08/16 08:00 98.7 104 17 123/71 95 06/08/16 05:00 97.7 98 18 117/68 97 06/08/16 01:20 97.0 100 16 124/73 96 06/07/16 21:50 17 06/07/16 20:50 99.6 99 16 136/66 95 06/07/16 16:00 100.1 94 17 116/69 96 I/O 06/07/16 06/07/16 06/07/16 06/08/16 06/08/16 06/08/16 06:59 14:59 22:59 06:59 14:59 22:59 Intake Total 720 ml 2360 ml 2000 ml Output Total 700 ml 880 ml 800 ml 1000 ml Balance 20 ml -880 ml 1560 ml 1000 ml Intake Oral 720 ml 2360 ml 2000 ml Output Urine Total 700 ml 880 ml 800 ml 1000 ml # Voids 3 # Bowel Movements 0 0 Result Diagram: 06/07/16 0415 06/06/16 0600 Objective Remarks GENERAL: This is a well-nourished, well-developed patient, in no apparent distress. CARDIOVASCULAR: Regular rate and rhythm without murmurs, gallops, or rubs. RESPIRATORY: Clear to auscultation. Breath sounds equal bilaterally. No wheezes , rales, or rhonchi. GASTROINTESTINAL: Abdomen soft, non-tender, nondistended. Normal active bowel sounds MUSCULOSKELETAL: Extremities without clubbing, cyanosis, or edema. NEURO: Alert & Oriented x4 to person, place, time, situation. Moves all ext x4 Procedures T4-5 decompressive laminectomy, evacuation epidural abscess and granulation tissue Evacuation thoracic paraspinous abscess A/P Assessment and Plan 06/05: Stable, had his right IJ line, continue with neurosurgery recommendations 06/06: Asymptomatic neutropenia, ID recommended holding rifampin and Ancef, monitor WBC 06/08: WBC 2.9 still yesterday, heart rate improved after Tylenol, monitor fever he had temp of 100.1, continue antibiotic per ID recommendation 41-year-old male with: Multiple infections/ Sepsis Thoracic spine MRI shows: There is extensive bilateral paraspinal abscess extending from approximately T3-T9; The abnormality appears to be centered at the T5 level where there is vertebral body height loss and fluid and enhancement in the adjacent disc spaces suggesting discitis osteomyelitis; A portion of the abnormal fluid collection extends posteriorly on the left at C5- C6; The right lower lobe airspace consolidation has a connection with the adjacent right paraspinal abscess. Lumbar spine MRI: Significant change from prior exam; No definite acute findings. Chest CT: Abnormal bilateral paraspinal fluid collection extending from approximately T3-T8; The appearance is highly suggestive of a paraspinal abscess; Focal air space consolidation in the medial right lower lobe abutting the paraspinal process; This likely represents focal lung infection with possible central necrosis. S/p T4-5 decompressive laminectomy, evacuation epidural abscess and granulation tissue; Evacuation thoracic paraspinous abscess 05/26. 3 out of 4 blood cultures grew MSSA. Repeat blood cultures are negative. Fluid culture also grew MSSA. - wound care, weightbearing and anticoagulation per neurosurgery. - antibiotics per ID. currently on Ancef and rifampin. Will need 6-8 weeks of treatment followed by oral suppression per ID recommendations. - pain control as needed with a bowel regimen. - physical therapy. - incentive spirometry. - Breathing treatments as needed. Anemia Likely s/t sepsis. Postop. - follow CBC. - treat underlying infections. Hyperglycemia Blood sugar was elevated on admission. Likely a stress reaction. A1c 5.3%. - follow BMP as needed. IV drug abuse: Cautious with Narcotics with this patient. I discussed with the patient to try to wean off pain medications Last used 6 months ago. - Cessation instruction. Nicotine dependence The patient smokes 5 cigarettes daily. - Cessation instruction given. PPx: Per neurosurgery. Mehreen Murrell MD Jun 08, 2016 12:24
[2016-06-08 14:00] VITALS: BP 115/64; PULSE 101; RESP 17; TEMP 100.4; O2SAT 92
--- NOTE | 2016-06-08 15:02 | HHI.NSPN ---
(Darrion Garcia) Note Status Status: Progress Note (Darrion Garcia) Interval History Diagnosis 1. Thoracic paraspinal abscess primarily T3-T9 levels 2. Thoracic osteomyelitis primarily T5 level the significant bone destruction Interval History 05/25/16: T4-T5 laminectomy, evacuation epidural and paraspinous abscess 05/29/16: Drain discontinued. 06/01/16: Caro catheter placed. Patient states he is doing all right when seen this evening. 06/02/16: Patient doing well today. States that prior to Caro placement Interventional Radiology had to drain an abscess. Culture sent & pending. 06/05/16: Caro replaced by Interventional Radiology. 06/06/16: Some pain to left shoulder since he slept on it during the night, otherwise he is doing "pretty good." He did state that which ever side he slept on that shoulder was sore when he would wake up. 06/07/16: Still complains of bilateral shoulder pain that radiates between the left & right. He has no other complaints. 06/08/16: Patient doing well except for the shoulder pain that feels deep inside the joint, mostly on the left. States he was seen earlier and started on med to lower heart rate. (Darrion Garcia) Labs, Micro, & Vital Signs Constitutional Vital Signs Date Time Temp Pulse Resp B/P Pulse Ox O2 Delivery O2 Flow Rate FiO2 06/08/16 12:00 99.8 94 17 129/68 99 06/08/16 08:00 98.7 104 17 123/71 95 06/08/16 05:00 97.7 98 18 117/68 97 06/08/16 01:20 97.0 100 16 124/73 96 06/07/16 21:50 17 06/07/16 20:50 99.6 99 16 136/66 95 06/07/16 16:00 100.1 94 17 116/69 96 06/08/16 06:59 Intake Total 4360 ml Output Total 2680 ml Balance 1680 ml (Darrion Garcia) Review of Systems/Exam ROS Neuro: Denies any headache, dizziness, numbness or tingling. Neck: Denies any neck pain. Respiratory: Denies any shortness of breath or productive cough. Cardiac: Denies any chest pain, palpitation or irregular heart rate. GI: Denies any abdominal pain, nausea, vomiting or bowel incontinence. : Denies any bladder incontinence. Back: Slight pain to the back. Extremities: Persistent shoulder pain deep in the joint, more so on the left. Exam Constitutional: Laying in bed watching TV, no apparent distress, slightly flat affect. HEENT: Normocephalic, atraumatic. Neck: Soft, supple, no meningismus or nuchal rigidity. Resp: CTAB w/o W/R/R, equal excursion, non-laboured, on RA. CV: RRR w/o M/G/R, cap refill < 2 sec. GI: Abdomen soft, non-tender, positive bowel sounds. Back: Mildly TTP over surgical incision, dressing dry & intact, incision w/ intact steri-strips, w/o any evident drainage, erythema or streaking. Extremities: JENKINS, no clubbing, deformity or discolouration. Left shoulder mildly TTP. Neuro: AAOx3. Speech clear & appropriate. Follows commands. Motor strength equal throughout all major extensor & flexion muscle groups. Sensation grossly intact to light touch all extremities. (Darrion Garcia) Medications Current Medications Current Medications Medications (Trade) Dose Ordered Sig/Rony Route Start Time Stop Time Status Last Admin (Narcan Inj) 0.4 mg UNSCH PRN IV 05/24/16 04:30 (D50w (Vial) Inj) 25 ml UNSCH PRN IV PUSH 05/24/16 14:15 (Glucagon Inj) 1 mg UNSCH PRN OTHER 05/24/16 14:15 (Ventolin Hfa Inh) 2 puff Q4H PRN INH 05/24/16 16:00 06/03/16 08:24 (Colace) 100 mg BID PO 05/25/16 21:00 06/07/16 08:28 (Senokot) 17.2 mg DAILY PO 05/25/16 18:00 06/07/16 08:29 (NS Flush) 2 ml UNSCH PRN IVF 05/25/16 21:45 05/29/16 22:48 (NS Flush) 2 ml BID IVF 05/26/16 09:00 06/08/16 09:00 (Dilaudid Pf Inj) 1 mg Q4H PRN IV 05/30/16 14:41 06/08/16 12:10 (Dilaudid) 4 mg Q3H PRN PO 05/30/16 20:00 06/08/16 14:14 ([place] 10-325 Mg) 1 tab Q4H PRN PO 05/30/16 18:00 06/04/16 23:36 (Oramorph Sr) 15 mg Q12HR PO 05/31/16 21:15 06/08/16 09:05 (NS Flush) See Protocol DAILY IV FLUSH 06/02/16 09:00 06/08/16 09:04 (NS Flush) See Protocol UNSCH PRN IV FLUSH 06/01/16 10:15 (Heparin Central Flush) See Protocol DAILY IV FLUSH 06/02/16 09:00 06/08/16 09:03 (Heparin Central Flush) See Protocol UNSCH PRN IV FLUSH 06/01/16 10:15 (NS Flush) UNSCH PRN IV FLUSH 06/01/16 10:15 06/08/16 06:52 (Tylenol) 650 mg Q4H PRN PO 06/03/16 21:25 (NS Flush) DAILY IVF 06/06/16 09:00 (Heparin Central Flush) DAILY IV FLUSH 06/06/16 09:00 (NS Flush) UNSCH PRN IVF 06/05/16 11:45 06/07/16 05:29 Heparin Sodium (Porcine) UNSCH PRN IV FLUSH 06/05/16 11:45 (Rocephin Inj/NS Inj) 100 ml @ 200 mls/hr Q24H IV 06/06/16 13:00 06/08/16 12:12 (Tenormin) 25 mg DAILY PO 06/07/16 14:30 06/08/16 09:05 (Ferrous Sulfate) 325 mg DAILY PO 06/08/16 09:00 06/08/16 09:05 (Darrion Garcia) Medical Decision Making MDM Remarks Impression: 1. Thoracic paraspinal abscess primarily T3-T9 levels 2. Thoracic osteomyelitis primarily T5 level with significant bone destruction 3. Stable neurologic function status post thoracic laminectomy, evacuation epidural and paraspinous abscess 4. Thoracic spine relatively stable on CT scan 5. Remains afebrile since at 2000 A. Max temp past 24 hrs 98.9 degrees 6. Pain essentially controlled on current medication regimen 7. No growth in blood culture from 06/03 8. No growth in body fluid from right subclavian site on 06/01 9. Haemoglobin trending down 10. Hyponatremia 11. Tachycardia 12. Bilateral shoulder pain (Darrion Garcia) Plan Plan Remarks Plan of care discussed with patient. PT & OT. Brace when OOB. Antibiotics per Infectious Disease. Will most likely need mid thoracic spine reconstruction & fusion surgery following completion of antibiotics. Continue present pain medication regimen. (Darrion Garcia) Attending Statement I have personally seen and examined the patient on the date of this note. Pertinent documentation and study results have been reviewed by the undersigned. I have personally developed the treatment plan and performed medical decision making. Agree with findings, exam, and treatment plan as noted above. (Jeffry Pickard MD) Darrion Garcia Jun 08, 2016 15:02 Jeffry Pickard MD Jun 09, 2016 19:51
[2016-06-08 21:30] VITALS: BP 109/67; PULSE 105; RESP 17; TEMP 99.1; O2SAT 94
[2016-06-09] VITALS: BP 110/70; PULSE 110; RESP 18; TEMP 98.9; O2SAT 97
[2016-06-09] MEDS: HYDROmorphone HCL 4 MG TAB PO PRN ×7 (01:17→21:53)
[2016-06-09] MEDS: HYDROmorphone HCL PF 1 MG/ML VIAL IV PRN ×4 (05:36→23:18)
[2016-06-09 06:05] LABS: AUTOMATED NEUTROPHIL # 4.6 TH/MM3 (1.8-7.7); BASOPHIL # 0.1 TH/MM3 (0-0.2); BASOPHIL % 0.9 % (0.0-2.0); EOSINOPHIL # 0.1 TH/MM3 (0-0.4); EOSINOPHIL % 1.3 % (0.0-4.0); HEMATOCRIT 27.1 % (39.0-51.0); LYMPH % 21.7 % (9.0-44.0); LYMPHOCYTE # 1.5 TH/MM3 (1.0-4.8); MEAN CELL VOLUME 68.2 FL (80.0-100.0); MEAN CORPUSCULAR HEMOGLOBIN 21.9 PG (27.0-34.0); MEAN CORPUSCULAR HGB CONC 32.2 % (32.0-36.0); MONO % 10.6 % (0.0-8.0); NEUT % 65.5 % (16.0-70.0); PLATELET COUNT 281 TH/MM3 (150-450); RED BLOOD COUNT 3.97 MIL/MM3 (4.50-5.90); RED CELL DISTRIBUTION WIDTH 19.4 % (11.6-17.2)
[2016-06-09 06:09] LABS: HEMO FLAGS AUTO DIFF
[2016-06-09 07:13] LABS: KERATOCYTES OCC (NORMAL)
[2016-06-09 07:14] LABS: ACANTHOCYTES OCC (NORMAL); PLATELET ESTIMATE SMEAR NORMAL (NORMAL); PLATELET MORPHOLOGY NORMAL (NORMAL); SCAN/DIFF AUTO DIFF CONFIRMED
[2016-06-09] MEDS: DOCUSATE SODIUM 100 MG CAP PO SCH ×2 (09:00→20:39)
[2016-06-09] MEDS: SENNOSIDES 8.6 MG TAB PO SCH (09:00)
[2016-06-09] MEDS: ATENOLOL 25 MG TAB PO SCH (09:00)
[2016-06-09] MEDS: SODIUM CHLORIDE 0.9% FLUSH 10 ML FLUSH IVF SCH (09:00)
[2016-06-09] MEDS: SODIUM CHLORIDE 0.9% FLUSH 5 ML FLUSH IVF SCH ×2 (09:00→20:40)
[2016-06-09 09:04] VITALS: BP 104/57; PULSE 100; RESP 18; TEMP 97.7; O2SAT 95
[2016-06-09] MEDS: SODIUM CHLORIDE 0.9% FLUSH 10 ML FLUSH IV FLUSH SCH (09:18)
[2016-06-09] MEDS: FERROUS SULFATE 325 MG (65 MG ELEMENTAL IRON) TAB PO SCH (09:18)
[2016-06-09] MEDS: MORPHINE SULFATE 15 MG CONTROLLED RELEASE TAB PO SCH ×2 (09:19→20:39)
--- NOTE | 2016-06-09 09:51 | HHI.IDPN ---
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 Recently treated at [facility] for ?lung abscess and recurrent spinal abscess. Now with epidural abscess same area and possibly extending into lung. Notes reviewed One low grade temp yesterday C/O pain L shoulder NO diarrhea Voiding ok WBC better C/S fluid RSC joint negative No new (+) BC OR C/S with MSSA BC also with MSSA Repeat BC negative so far Echo report - good study, valves all look normal Sputum C/S MSSA ESR 65 CRP 13 Antibiotics Rocephin Lines [place] CHEW Past Medical History Reviewed Allergies: Coded Allergies: Aspirin (Verified Allergy, Severe, 09/23/13) PATIENT STATES HE HAD A HOLE IN HIS HEART WHEN HE WAS BORN AND HE WAS TOLD NOT TO TAKE ASPIRIN. PENITENTIARY MAR STATES NO KNOWN ALLERGIES PATIENT DENIES ALLERGY TO ASPIRIN. 04/01/13 Objective . Vital Signs Date Time Temp Pulse Resp B/P Pulse Ox O2 Delivery O2 Flow Rate FiO2 06/09/16 09:04 97.7 100 18 104/57 95 06/09/16 06:07 18 06/09/16 05:04 18 06/09/16 00:00 98.9 110 18 110/70 97 06/08/16 21:30 99.1 105 17 109/67 94 06/08/16 20:50 18 06/08/16 14:00 100.4 101 17 115/64 92 06/08/16 12:00 99.8 94 17 129/68 99 06/08/16 06/08/16 06/09/16 15:00 23:00 07:00 Intake Total 600 ml 1800 ml 2000 ml Output Total 700 ml 600 ml 1200 ml Balance -100 ml 1200 ml 800 ml Intake Oral 600 ml 1800 ml 2000 ml Output Urine Total 700 ml 600 ml 1200 ml # Bowel Movements 0 0 0 . Laboratory Tests Test 06/09/16 05:40 White Blood Count 7.0 TH/MM3 Red Blood Count 3.97 MIL/MM3 Hemoglobin 8.7 GM/DL Hematocrit 27.1 % Mean Corpuscular Volume 68.2 FL Mean Corpuscular Hemoglobin 21.9 PG Mean Corpuscular Hemoglobin 32.2 % Concent Red Cell Distribution Width 19.4 % Platelet Count 281 TH/MM3 Mean Platelet Volume 8.4 FL Neutrophils (%) (Auto) 65.5 % Lymphocytes (%) (Auto) 21.7 % Monocytes (%) (Auto) 10.6 % Eosinophils (%) (Auto) 1.3 % Basophils (%) (Auto) 0.9 % Neutrophils # (Auto) 4.6 TH/MM3 Lymphocytes # (Auto) 1.5 TH/MM3 Monocytes # (Auto) 0.7 TH/MM3 Eosinophils # (Auto) 0.1 TH/MM3 Basophils # (Auto) 0.1 TH/MM3 CBC Comment AUTO DIFF Differential Comment AUTO DIFF CONFIRMED Platelet Estimate NORMAL Platelet Morphology Comment NORMAL Acanthocytes OCC Keratocytes OCC Imaging Catheter Placement X-Ray 06/05/16 0000 Signed Impressions: Service Date/Time: Sunday, June 05, 2016 10:50 - CONCLUSION: Uncomplicated Caro catheter placement as above. Chest wall cerclage stitch can be removed in approximately 10-14 days Valentin Narvaez MD Thoracic Spine CT 06/02/16 0000 Signed Impressions: Service Date/Time: Thursday, June 02, 2016 20:27 - CONCLUSION: 1. Extensive lytic destructive process along the lower endplate at T5, T6 and T7 vertebral bodies consistent with osteomyelitis. 2. There is osteomyelitis at T7 given the increased sclerosis. 3. Anterior paraspinal abscess containing air is again seen from lower T2 down to T9 level. 4. The right lower lobe mass/consolidation seen abutting the mediastinum medially is again noted. Roni Dominique MD Joint Aspiration/Injection 06/01/16 0000 Signed Impressions: Service Date/Time: May 16:59 - CONCLUSION: Uncomplicated aspiration as above. Valentin Narvaez MD Chest X-Ray 05/25/16 0000 Signed Impressions: Service Date/Time: May 22:46 - CONCLUSION: Mild vascular congestion and bibasilar atelectasis. Roshan Jain MD Thoracic Spine MRI 05/24/16 0000 Signed Impressions: Service Date/Time: Tuesday, May 24, 2016 10:40 - CONCLUSION: 1. There is extensive bilateral paraspinal abscess extending from approximately T3-T9. The abnormality appears to be centered at the T5 level where there is vertebral body height loss and fluid and enhancement in the adjacent disc spaces suggesting discitis osteomyelitis. A portion of the abnormal fluid collection extends posteriorly on the left at C5-C6. 2. The right lower lobe airspace consolidation has a connection with the adjacent right paraspinal abscess. 3. No spinal canal stenosis is identified. There is mild epidural enhancement in the anterior epidural space at T5-T7 but no epidural abscess is appreciated. Roshan Galvez MD Lumbar Spine MRI 05/24/16 Signed Impressions: Service Date/Time: Tuesday, May 24, 2016 10:40 - CONCLUSION: Significant change from prior exam. No definite acute findings. See above discussion. Roshan Jain MD Chest CT 05/24/16 Signed Impressions: Service Date/Time: Tuesday, May 24, 2016 10:21 - CONCLUSION: 1. Abnormal bilateral paraspinal fluid collection extending from approximately T3-T8. The appearance is highly suggestive of a paraspinal abscess. 2. Focal air space consolidation in the medial right lower lobe abutting the paraspinal process. This likely represents focal lung infection with possible central necrosis. 3. Abnormal appearance of the kidneys suggesting interstitial nephritis or ATN. 4. Partially visualized upper abdomen suggests retroperitoneal lymphadenopathy. Roshan Galvez MD Thoracic Spine MRI 05/24/16 Signed Impressions: Service Date/Time: Tuesday, May 24, 2016 10:40 - CONCLUSION: 1. There is extensive bilateral paraspinal abscess extending from approximately T3-T9. The abnormality appears to be centered at the T5 level where there is vertebral body height loss and fluid and enhancement in the adjacent disc spaces suggesting discitis osteomyelitis. A portion of the abnormal fluid collection extends posteriorly on the left at C5-C6. 2. The right lower lobe airspace consolidation has a connection with the adjacent right paraspinal abscess. 3. No spinal canal stenosis is identified. There is mild epidural enhancement in the anterior epidural space at T5-T7 but no epidural abscess is appreciated. Roshan Galvez MD Lumbar Spine MRI 05/24/16 0000 Signed Impressions: Service Date/Time: Tuesday, May 24, 2016 10:40 - CONCLUSION: Significant change from prior exam. No definite acute findings. See above discussion. Roshan Jain MD Chest CT 05/24/16 0000 Signed Impressions: Service Date/Time: Tuesday, May 24, 2016 10:21 - CONCLUSION: 1. Abnormal bilateral paraspinal fluid collection extending from approximately T3-T8. The appearance is highly suggestive of a paraspinal abscess. 2. Focal air space consolidation in the medial right lower lobe abutting the paraspinal process. This likely represents focal lung infection with possible central necrosis. 3. Abnormal appearance of the kidneys suggesting interstitial nephritis or ATN. 4. Partially visualized upper abdomen suggests retroperitoneal lymphadenopathy. Roshan Galvez MD Physical Exam GENERAL: awake and alert, NAD SKIN: Warm and dry. No generalized rash HEENT: [place] conjunctivae, no petechia or hemorrhage. No scleral icterus. No injection or drainage. Moist oral mucosa. NECK: Supple, nontender, no meningeal signs. Caro site with some blood at site. Previous swelling over RSC joint very minimal now CARDIOVASCULAR: Regular rate and rhythm without murmurs, gallops, or rubs. No murmur. RESPIRATORY: Clear to auscultation. Breath sounds equal bilaterally. He has few scattered rhonchi. Decreased at the bases. GASTROINTESTINAL: Abdomen soft, mildly tender, mildly distended. No guarding or rebound. Bowel sounds are present and normoactive. No organomegaly. MUSCULOSKELETAL: Extremities without clubbing, cyanosis, or edema. No joint tenderness, effusion. No calf tenderness. L shoulder, no swelling or redness, good ROM NEUROLOGICAL: Non-focal PSYCH: Normal affect, calm and cooperative. 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 S/P OR - per NS, abscess did not communicate in thoracic cavoty Pneumonia, better Previous Rx for osteo thoracic, removal of toracic hardware last 2013, with MSSA Previous Rx MSSA osteo of spine 2011 Known IVDU Fluid collection over RSC joint, aspirated, C/S negative, looks better Neutropenia, ?meds, ?ancef, ?rifampin - better One low grade temps RECOMMENDATION Continue Rocephin UA and C/S Monitor temps Will need 8 weeks IV Abx from date of surgery - anticipated end date July 19 - then chronic oral suppression with Keflex 500 BID or Dicloxacillin 500 BID Labs weekly while on IV Abx: CBC, creat, LFT Monitor progress I will check patient again in Sunday ID MD loss prevention coordinator available this weekend if with any new ID issue or question Genie Wadsworth MD Jun 09, 2016 09:51 Genie Wadsworth MD Jun 09, 2016 09:51
[2016-06-09] MEDS: cefTRIAXone INJ 2,000 MG in SODIUM CHLORIDE 0.9% INJ 100 ML IV SCH (12:16)
--- NOTE | 2016-06-09 12:17 | HHI.NSPN ---
(Darrion Garcia) Note Status Status: Progress Note (Darrion Garcia) Interval History Diagnosis 1. Thoracic paraspinal abscess primarily T3-T9 levels 2. Thoracic osteomyelitis primarily T5 level the significant bone destruction Interval History 05/25/16: T4-T5 laminectomy, evacuation epidural and paraspinous abscess 05/29/16: Drain discontinued. 06/01/16: Caro catheter placed. Patient states he is doing all right when seen this evening. 06/02/16: Patient doing well today. States that prior to Caro placement Interventional Radiology had to drain an abscess. Culture sent & pending. 06/05/16: Caro replaced by Interventional Radiology. 06/06/16: Some pain to left shoulder since he slept on it during the night, otherwise he is doing "pretty good." He did state that which ever side he slept on that shoulder was sore when he would wake up. 06/07/16: Still complains of bilateral shoulder pain that radiates between the left & right. He has no other complaints. 06/08/16: Patient doing well except for the shoulder pain that feels deep inside the joint, mostly on the left. States he was seen earlier and started on med to lower heart rate. 06/09/16: Still with shoulder pain, mostly to the left but some on the right. Otherwise he is doing good. (Darrion Garcia) Labs, Micro, & Vital Signs Results Allergies Coded Allergies Type Severity Reaction Last Updated Verified Aspirin Allergy Severe 09/23/13 Yes //174///// 06:00 18:00 06:00 18:00 06:00 18:00 Intake Total 1080 ml 4000 ml 600 ml 3800 ml Output Total 1580 ml 1800 ml 700 ml 1800 ml Balance -500 ml 2200 ml -100 ml 2000 ml Intake Oral 1080 ml 4000 ml 600 ml 3800 ml Output Urine Total 1580 ml 1800 ml 700 ml 1800 ml # Voids 3 # Bowel Movements 0 0 0 0 Laboratory Tests Test 06/07/16 06/09/16 04:15 05:40 White Blood Count 2.9 TH/MM3 7.0 TH/MM3 Red Blood Count 3.31 MIL/MM3 3.97 MIL/MM3 Hemoglobin 7.5 GM/DL 8.7 GM/DL Hematocrit 22.4 % 27.1 % Mean Corpuscular Volume 67.6 FL 68.2 FL Mean Corpuscular Hemoglobin 22.6 PG 21.9 PG Mean Corpuscular Hemoglobin 33.4 % 32.2 % Concent Red Cell Distribution Width 19.1 % 19.4 % Platelet Count 230 TH/MM3 281 TH/MM3 Mean Platelet Volume 7.7 FL 8.4 FL Neutrophils (%) (Auto) % 65.5 % Lymphocytes (%) (Auto) % 21.7 % Monocytes (%) (Auto) % 10.6 % Eosinophils (%) (Auto) % 1.3 % Basophils (%) (Auto) % 0.9 % Neutrophils # (Auto) TH/MM3 4.6 TH/MM3 Lymphocytes # (Auto) TH/MM3 1.5 TH/MM3 Monocytes # (Auto) TH/MM3 0.7 TH/MM3 Eosinophils # (Auto) TH/MM3 0.1 TH/MM3 Basophils # (Auto) TH/MM3 0.1 TH/MM3 CBC Comment AUTO DIFF AUTO DIFF Differential Total Cells 25 Counted Neutrophils % (Manual) 68 % Band Neutrophils % 4 % Lymphocytes % 20 % Monocytes % 8 % Neutrophils # (Manual) 2.1 TH/MM3 Differential Comment FINAL DIFF AUTO DIFF MANUAL CONFIRMED Platelet Estimate NORMAL NORMAL Platelet Morphology Comment NORMAL NORMAL Acanthocytes OCC Keratocytes OCC Constitutional Vital Signs Date Time Temp Pulse Resp B/P Pulse Ox O2 Delivery O2 Flow Rate FiO2 06/09/16 09:04 97.7 100 18 104/57 95 06/09/16 06:07 18 06/09/16 05:04 18 06/09/16 00:00 98.9 110 18 110/70 97 06/08/16 21:30 99.1 105 17 109/67 94 06/08/16 20:50 18 06/08/16 14:00 100.4 101 17 115/64 92 06/09/16 07:00 Intake Total 4400 ml Output Total 2500 ml Balance 1900 ml (Darrion Garcia) Review of Systems/Exam ROS Neuro: Denies any headache, dizziness, numbness or tingling. Neck: Denies any neck pain. Respiratory: Denies any shortness of breath or productive cough. Cardiac: Denies any chest pain, palpitation or irregular heart rate. GI: Denies any abdominal pain, nausea, vomiting or bowel incontinence. : Denies any bladder incontinence. Back: Slight pain to the back. Extremities: Still with bilateral shoulder pain but mainly on the left, left arm muscle also hurting. Exam Constitutional: Laying in bed watching TV, no apparent distress, affect better. HEENT: Normocephalic, atraumatic. Neck: Soft, supple, no meningismus or nuchal rigidity. Resp: CTAB w/o W/R/R, equal excursion, non-laboured, on RA. CV: RRR w/o M/G/R, cap refill < 2 sec. GI: Abdomen soft, non-tender, positive bowel sounds. Back: Mildly TTP over surgical incision, dressing dry & intact, incision w/ intact steri-strips, w/o any evident drainage, erythema or streaking. Extremities: JENKINS, no clubbing, deformity or discolouration. Left shoulder & proximal arm mildly TTP. Neuro: AAOx3. Speech clear & appropriate. Follows commands. Motor strength equal throughout all major extensor & flexion muscle groups. Sensation grossly intact to light touch all extremities. (Darrion Garcia) Medications Current Medications Current Medications Medications (Trade) Dose Ordered Sig/Rony Route Start Time Stop Time Status Last Admin (Narcan Inj) 0.4 mg UNSCH PRN IV 05/24/16 04:30 (D50w (Vial) Inj) 25 ml UNSCH PRN IV PUSH 05/24/16 14:15 (Glucagon Inj) 1 mg UNSCH PRN OTHER 05/24/16 14:15 (Ventolin Hfa Inh) 2 puff Q4H PRN INH 05/24/16 16:00 06/03/16 08:24 (Colace) 100 mg BID PO 05/25/16 21:00 06/08/16 20:20 (Senokot) 17.2 mg DAILY PO 05/25/16 18:00 06/07/16 08:29 (NS Flush) 2 ml UNSCH PRN IVF 05/25/16 21:45 05/29/16 22:48 (NS Flush) 2 ml BID IVF 05/26/16 09:00 06/09/16 09:00 (Dilaudid Pf Inj) 1 mg Q4H PRN IV 05/30/16 14:41 06/09/16 10:46 (Dilaudid) 4 mg Q3H PRN PO 05/30/16 20:00 06/09/16 08:11 ([place] 10-325 Mg) 1 tab Q4H PRN PO 05/30/16 18:00 06/04/16 23:36 (Oramorph Sr) 15 mg Q12HR PO 05/31/16 21:15 06/09/16 09:19 (NS Flush) See Protocol DAILY IV FLUSH 06/02/16 09:00 06/09/16 09:18 (NS Flush) See Protocol UNSCH PRN IV FLUSH 06/01/16 10:15 (Heparin Central Flush) See Protocol DAILY IV FLUSH 06/02/16 09:00 06/09/16 09:18 (Heparin Central Flush) See Protocol UNSCH PRN IV FLUSH 06/01/16 10:15 (NS Flush) UNSCH PRN IV FLUSH 06/01/16 10:15 06/08/16 06:52 (Tylenol) 650 mg Q4H PRN PO 06/03/16 21:25 (NS Flush) DAILY IVF 06/06/16 09:00 (Heparin Central Flush) DAILY IV FLUSH 06/06/16 09:00 (NS Flush) UNSCH PRN IVF 06/05/16 11:45 06/07/16 05:29 Heparin Sodium (Porcine) UNSCH PRN IV FLUSH 06/05/16 11:45 (Rocephin Inj/NS Inj) 100 ml @ 200 mls/hr Q24H IV 06/06/16 13:00 06/08/16 12:12 (Tenormin) 25 mg DAILY PO 06/07/16 14:30 06/08/16 09:05 (Ferrous Sulfate) 325 mg DAILY PO 06/08/16 09:00 06/09/16 09:18 (Darrion Garcia) Medical Decision Making MDM Remarks Impression: 1. Thoracic paraspinal abscess primarily T3-T9 levels 2. Thoracic osteomyelitis primarily T5 level with significant bone destruction 3. Stable neurologic function status post thoracic laminectomy, evacuation epidural and paraspinous abscess 4. Thoracic spine relatively stable on CT scan 5. Max temp past 24 hrs 100.4 degrees 6. Pain essentially controlled on current medication regimen 7. No growth in blood culture from 06/03 8. No growth in body fluid from right subclavian site on 06/01 9. Haemoglobin trending up today 10. Hyponatremia 11. Tachycardia 12. Bilateral shoulder pain (Darrion Garcia) Plan Plan Remarks Plan of care discussed with patient. PT & OT. Brace when OOB. Antibiotics per Infectious Disease. Will most likely need mid thoracic spine reconstruction & fusion surgery following completion of antibiotics. Continue present pain medication regimen. (Darrion Garcia) Attending Statement I have personally seen and examined the patient on the date of this note. Pertinent documentation and study results have been reviewed by the undersigned. I have personally developed the treatment plan and performed medical decision making. Agree with findings, exam, and treatment plan as noted above. Persistent left upper chest pain which appears to be related to thoracic radiculitis. We will try him on a course of gabapentin. (Jeffry Pickard MD) Darrion Garcia Jun 09, 2016 12:17 Jeffry Pickard MD Jun 09, 2016 19:52
[2016-06-09 12:43] VITALS: BP 105/56; PULSE 92; RESP 16; TEMP 97.7; O2SAT 97
[2016-06-09 13:35] LABS: BACTERIA, URINE RARE /hpf; BLOOD, URINE LARGE (NEG); COMMENT (UR) CULT NOT INDICATED; CULTURE IF INDICATED CULT NOT INDICATED; GLUCOSE,URINE NEG (NEG); KETONE, URINE NEG (NEG); MUCUS URINE FEW /lpf (OCC); NITRITE,URINE NEG (NEG); URINE COLOR YELLOW (YELLW/STRAW)
[2016-06-09 17:22] VITALS: BP 123/63; PULSE 111; RESP 16; TEMP 100; O2SAT 95
[2016-06-09 20:00] VITALS: BP 118/67; PULSE 105; RESP 20; TEMP 99; O2SAT 94
[2016-06-09] MEDS: GABAPENTIN 300 MG CAP PO SCH (21:51)
[2016-06-10] MEDS: HYDROmorphone HCL 4 MG TAB PO PRN ×7 (02:56→20:58)
[2016-06-10] MEDS: HYDROmorphone HCL PF 1 MG/ML VIAL IV PRN ×3 (04:17→22:12)
[2016-06-10] MEDS: MORPHINE SULFATE 15 MG CONTROLLED RELEASE TAB PO SCH ×2 (08:46→20:59)
[2016-06-10] MEDS: SENNOSIDES 8.6 MG TAB PO SCH (08:47)
[2016-06-10] MEDS: ATENOLOL 25 MG TAB PO SCH (08:47)
[2016-06-10] MEDS: GABAPENTIN 300 MG CAP PO SCH ×2 (08:48→20:59)
[2016-06-10] MEDS: DOCUSATE SODIUM 100 MG CAP PO SCH ×2 (08:48→20:59)
[2016-06-10] MEDS: FERROUS SULFATE 325 MG (65 MG ELEMENTAL IRON) TAB PO SCH (08:48)
[2016-06-10] MEDS: SODIUM CHLORIDE 0.9% FLUSH 5 ML FLUSH IVF SCH ×2 (08:49→21:00)
[2016-06-10] MEDS: SODIUM CHLORIDE 0.9% FLUSH 10 ML FLUSH IVF SCH (08:49)
[2016-06-10] MEDS: SODIUM CHLORIDE 0.9% FLUSH 10 ML FLUSH IV FLUSH SCH (08:49)
[2016-06-10 09:03] VITALS: BP 110/61; PULSE 95; RESP 16; TEMP 96.4; O2SAT 95
[2016-06-10] MEDS: cefTRIAXone INJ 2,000 MG in SODIUM CHLORIDE 0.9% INJ 100 ML IV SCH (12:05)
[2016-06-10 12:14] VITALS: BP 108/58; PULSE 80; RESP 16; TEMP 98.2; O2SAT 94
--- NOTE | 2016-06-10 14:32 | HHI.NSPN ---
Note Status Status: Progress Note Interval History Diagnosis 1. Thoracic paraspinal abscess primarily T3-T9 levels 2. Thoracic osteomyelitis primarily T5 level the significant bone destruction Interval History 05/25/16: T4-T5 laminectomy, evacuation epidural and paraspinous abscess 05/29/16: Drain discontinued. 06/01/16: Caro catheter placed. Patient states he is doing all right when seen this evening. 06/02/16: Patient doing well today. States that prior to Caro placement Interventional Radiology had to drain an abscess. Culture sent & pending. 06/05/16: Caro replaced by Interventional Radiology. 06/06/16: Some pain to left shoulder since he slept on it during the night, otherwise he is doing "pretty good." He did state that which ever side he slept on that shoulder was sore when he would wake up. 06/07/16: Still complains of bilateral shoulder pain that radiates between the left & right. He has no other complaints. 06/08/16: Patient doing well except for the shoulder pain that feels deep inside the joint, mostly on the left. States he was seen earlier and started on med to lower heart rate. 06/09/16: Still with shoulder pain, mostly to the left but some on the right. Otherwise he is doing good. 06/10/16: Continues with left shoulder pain. Otherwise doing well. Labs, Micro, & Vital Signs Results Date Time Temp Pulse Resp B/P Pulse Ox O2 Delivery O2 Flow Rate FiO2 06/10/16 12:14 98.2 80 16 108/58 94 06/10/16 09:03 96.4 95 16 110/61 95 06/09/16 20:00 99.0 105 20 118/67 94 06/09/16 17:22 100.0 111 16 123/63 95 06/10/16 07:00 Intake Total 720 ml Balance 720 ml Constitutional Vital Signs Date Time Temp Pulse Resp B/P Pulse Ox O2 Delivery O2 Flow Rate FiO2 06/10/16 12:14 98.2 80 16 108/58 94 06/10/16 09:03 96.4 95 16 110/61 95 06/09/16 20:00 99.0 105 20 118/67 94 06/09/16 17:22 100.0 111 16 123/63 95 06/10/16 07:00 Intake Total 720 ml Balance 720 ml Review of Systems/Exam Exam Constitutional: Laying in bed watching TV, no apparent distress, affect better. HEENT: Normocephalic, atraumatic. Neck: Soft, supple, no meningismus or nuchal rigidity. Resp: CTAB w/o W/R/R, equal excursion, non-laboured, on RA. CV: RRR w/o M/G/R, cap refill < 2 sec. GI: Abdomen soft, non-tender, positive bowel sounds. Back: Mildly TTP over surgical incision, dressing dry & intact, incision w/ intact steri-strips, w/o any evident drainage, erythema or streaking. Extremities: JENKINS, no clubbing, deformity or discolouration. Left shoulder & proximal arm mildly TTP. Neuro: AAOx3. Speech clear & appropriate. Follows commands. Motor strength equal throughout all major extensor & flexion muscle groups. Sensation grossly intact to light touch all extremities. Medications Current Medications Current Medications Vancomycin HCl/ Sodium Chloride (Vancomycin Inj/ NS 250 ml Inj) 250 ml @ 250 mls/hr Q12H IV Last administered on 05/24/16 05:46; Admin Dose 250 MLS/HR; Start 05/24/16 at 05:00; Stop 05/24/16 at 12:35; Status DC Acetaminophen/ Hydrocodone Bitart ([place] 5-325 Mg) 1 tab Q4H PRN PO PAIN SCALE 3 TO 5; Start 05/24/16 at 04:30; Stop 05/30/16 at 18:08; Status DC Oxycodone/ Acetaminophen (Percocet 10-325 Mg) 1 tab Q6H PRN PO PAIN SCALE 6 TO 10 Last administered on 05/29/16 06:14; Admin Dose 1 TAB; Start 05/24/16 at 04: 30; Stop 05/29/16 at 11:31; Status DC Hydromorphone HCl (Dilaudid Pf Inj) 1 mg Q3H PRN IV PAIN6-10 not controlled PO med Last administered on 05/30/16 12:32; Admin Dose 1 MG; Start 05/24/16 at 04: 30; Stop 05/30/16 at 14:43; Status DC Morphine Sulfate (Morphine Inj) 4 mg Q3H PRN IV BREAKTHROUGH PAIN; Start at 04:30; Stop 05/30/16 at 18:08; Status DC Naloxone HCl (Narcan Inj) 0.4 mg UNSCH PRN IV SEE LABEL COMMENTS; Start at 04:30 Morphine Sulfate (Oramorph Sr) 15 mg Q12HR PO Last administered on 05/26/16 07 :54; Admin Dose 15 MG; Start 05/24/16 at 21:00; Stop 05/26/16 at 11:42; Status DC Diazepam (Valium) 5 mg ONCE ONCE PO Last administered on 05/24/16 10:08; Admin Dose 5 MG; Start 05/24/16 at 09:45; Stop 05/24/16 at 09:49; Status DC Iohexol (Omnipaque 350 Inj) 60 ml STK-MED ONCE IV Last administered on 10:29; Admin Dose 60 ML; Start 05/24/16 at 10:29; Stop 05/24/16 at 10:30; Status DC Gadodiamide (Omniscan Pf Inj) 12 ml STK-MED ONCE IV Last administered on 12:41; Admin Dose 12 ML; Start 05/24/16 at 12:41; Stop 05/24/16 at 12:42; Status DC Insulin Aspart (NovoLOG SUPPLEMENTAL SCALE) 1 ACHS SLIDING SCALE SQ Last administered on 05/24/16 20:52; Admin Dose 1; Start 05/24/16 at 16:00; Stop at 12:19; Status DC Dextrose (D50w (Vial) Inj) 25 ml UNSCH PRN IV PUSH HYPOGLYCEMIA - SEE COMMENTS ; Start 05/24/16 at 14:15 Glucagon (Glucagon Inj) 1 mg UNSCH PRN OTHER HYPOGLYCEMIA-SEE COMMENTS; Start 05/24/16 at 14:15 Albuterol/ Ipratropium (Duoneb Neb) 1 ampule Q6HR WHILE AWAKE NEB NEB Last administered on 05/28/16 08:00; Admin Dose 1 AMPULE; Start 05/24/16 at 16:00; Stop 05/28/16 at 16:00; Status DC Albuterol Sulfate (Ventolin Hfa Inh) 2 puff Q4H PRN INH Dyspnea Last administered on 06/03/16 08:24; Admin Dose 2 PUFF; Start 05/24/16 at 16:00 Thrombin (Thrombin Top Soln) 10,000 units STK-MED ONCE .ROUTE Last administered on 05/25/16 19:39; Admin Dose 10,000 UNITS; Start 05/25/16 at 12: 41; Stop 05/25/16 at 12:42; Status DC Gelatin (Gelfoam 100 Top) 1 foam STK-MED ONCE .ROUTE Last administered on 19:30; Admin Dose 1 FOAM; Start 05/25/16 at 12:41; Stop 05/25/16 at 12:42; Status DC Gentamicin Sulfate (Gentamicin Inj) 240 mg STK-MED ONCE .ROUTE Last administered on 05/25/16 19:39; Admin Dose 240 MG; Start 05/25/16 at 12:41; Stop 05/25/16 at 12:42; Status DC Lidocaine/ Epinephrine (Xylocaine-Epi 1%-1:100,000 Inj) 40 ml STK-MED ONCE .ROUTE ; Start 05/25/16 at 12:41; Stop 05/25/16 at 12:42; Status DC Acetaminophen (Ofirmev Inj) 1,000 mg STK-MED ONCE IV ; Start 05/25/16 at 12:47; Stop 05/25/16 at 12:48; Status DC Artificial Tears (Lacrilube Opht Oint) 3.5 applic STK-MED ONCE .ROUTE ; Start at 12:47; Stop 05/25/16 at 12:48; Status DC Midazolam HCl (Versed Inj) 2 mg STK-MED ONCE .ROUTE ; Start 05/25/16 at 12:47; Stop 05/25/16 at 12:48; Status DC Fentanyl Citrate (fentaNYL INJ) 500 mcg STK-MED ONCE .ROUTE ; Start 05/25/16 at 12:47; Stop 05/25/16 at 12:48; Status DC Hydromorphone HCl 2 mg 2 mg STK-MED ONCE .ROUTE Last administered on 05/25/16 14:32; Admin Dose 2 MG; Start 05/25/16 at 14:31; Stop 05/25/16 at 14:32; Status DC Cefazolin Sodium/ Dextrose 50 ml @ 100 mls/hr Q8H IV Last administered on 06/06 08:24; Admin Dose 100 MLS/HR; Start 05/25/16 at 17:00; Stop 06/06/16 at 11 :25; Status DC Vancomycin HCl 1500 mg/Sodium Chloride 515 ml @ 257.5 mls/ hr ONCE ONCE IV ; Start 05/25/16 at 18:00; Stop 05/25/16 at 19:59; Status DC Pharmacy Profile Note 0 ml @ 0 mls/hr UNSCH OTHER ; Start 05/25/16 at 17:00; Stop 05/27/16 at 11:27; Status DC Vancomycin HCl/ Sodium Chloride (Vancomycin Inj/ NS 250 ml Inj) 250 ml @ 250 mls/hr Q8H IV Last administered on 05/27/16 02:56; Admin Dose 250 MLS/HR; Start 05/26/16 at 04:00; Stop 05/27/16 at 11:27; Status DC Miscellaneous Information SPECIFIC LAB TO BE BRISEYDA... ONCE ONCE .XX Last administered on 05/26/16 19:45; Admin Dose 1; Start 05/26/16 at 19:45; Stop at 19:46; Status DC Potassium Chloride (KCl 20 Meq Premix Inj) 100 ml @ 50 mls/hr Q2H IV ; Start at 18:00; Stop 05/25/16 at 21:59; Status DC Docusate Sodium (Colace) 100 mg BID PO Last administered on 06/10/16 08:48; Admin Dose 100 MG; Start 05/25/16 at 21:00 Sennosides (Senokot) 17.2 mg DAILY PO Last administered on 06/10/16 08:47; Admin Dose 17.2 MG; Start 05/25/16 at 18:00 Fentanyl Citrate (fentaNYL INJ) 250 mcg STK-MED ONCE .ROUTE ; Start 05/25/16 at 18:07; Stop 05/25/16 at 18:08; Status DC Hydromorphone HCl (Dilaudid Pf Inj) 2 mg STK-MED ONCE .ROUTE ; Start 05/25/16 at 18:07; Stop 05/25/16 at 18:08; Status DC IV Flush (NS Flush) 2 ml UNSCH PRN IVF FLUSH AFTER USING IV ACCESS Last administered on 05/29/16 22:48; Admin Dose 2 ML; Start 05/25/16 at 21:45 IV Flush 2 ml 2 ml BID IVF Last administered on 06/09/16 20:40; Admin Dose 2 ML; Start 05/26/16 at 09:00 Potassium Chloride/Dextrose/ Sod Cl (D5-1/2 NS + KCl 20 Meq Inj) 1,000 ml @ 100 mls/hr Q10H IV Last administered on 05/29/16 00:09; Admin Dose 100 MLS/HR ; Start 05/25/16 at 21:43; Stop 05/29/16 at 11:31; Status DC Hydromorphone HCl (*DILAUDID PF INJ PERIprocedural ONLY) 1 mg STK-MED ONCE .ROUTE Last administered on 05/25/16 22:03; Admin Dose 1 MG; Start 05/25/16 at 22:03; Stop 05/25/16 at 22:05; Status DC Morphine Sulfate 30 mg 30 mg Q12HR PO Last administered on 05/30/16 09:33; Admin Dose 30 MG; Start 05/26/16 at 21:00; Stop 05/30/16 at 18:08; Status DC Magnesium Sulfate/ Dextrose (Magnesium Sulfate 1 Gm Premix) 100 ml @ 100 mls/ hr ONCE ONCE IV Last administered on 05/26/16 15:12; Admin Dose 100 MLS/HR; Start 05/26/16 at 13:00; Stop 05/26/16 at 13:59; Status DC Miscellaneous Information SPECIFIC LAB TO BE DRAWN:VANCO TROUGH DATE TO BE DR... ONCE ONCE .XX ; Start 05/27/16 at 19:45; Stop 05/27/16 at 19:45; Status DC Pharmacy Profile Note 0 ml @ 0 mls/hr UNSCH OTHER ; Start 05/27/16 at 12:00; Stop 05/28/16 at 12:32; Status DC Vancomycin HCl/ Sodium Chloride (Vancomycin Inj/ NS 250 ml Inj) 250 ml @ 250 mls/hr Q8H IV Last administered on 05/28/16 11:49; Admin Dose 250 MLS/HR; Start 05/27/16 at 12:00; Stop 05/28/16 at 12:32; Status DC Miscellaneous Information SPECIFIC LAB TO BE DRAWN:VANCOMY... ONCE ONCE .XX ; Start 05/28/16 at 19:45; Stop 05/28/16 at 19:46; Status Cancel Hydromorphone HCl (Dilaudid) 4 mg Q4H PRN PO PAIN SCALE 6 TO 10 Last administered on 05/30/16 14:56; Admin Dose 4 MG; Start 05/29/16 at 11:30; Stop 05/30/16 at 18:08; Status DC Rifampin (Rifampin) 300 mg Q12HR PO Last administered on 06/06/16 08:21; Admin Dose 300 MG; Start 05/30/16 at 13:00; Stop 06/06/16 at 11:25; Status DC Hydromorphone HCl (Dilaudid Pf Inj) 1 mg Q4H PRN IV Breakthrough pain Last administered on 06/10/16 04:17; Admin Dose 1 MG; Start 05/30/16 at 14:41 Albuterol/ Ipratropium (Duoneb Neb) 1 ampule Q6HR WHILE AWAKE NEB NEB Last administered on 06/01/16 08:26; Admin Dose 1 AMPULE; Start 05/30/16 at 14:45; Stop 06/01/16 at 16:26; Status DC Hydromorphone HCl (Dilaudid) 4 mg Q3H PRN PO PAIN SCALE 6 TO 10 Last administered on 06/10/16 12:04; Admin Dose 4 MG; Start 05/30/16 at 20:00 Acetaminophen/ Hydrocodone Bitart ([place] 10-325 Mg) 1 tab Q4H PRN PO PAIN SCALE 3 TO 5 Last administered on 06/04/16 23:36; Admin Dose 1 TAB; Start 05/30 at 18:00 Morphine Sulfate (Oramorph Sr) 15 mg Q12HR PO Last administered on 06/10/16 08 :46; Admin Dose 15 MG; Start 05/31/16 at 21:15 Sodium Chloride (NS Flush) See Protocol DAILY IV FLUSH Last administered on 08:49; Admin Dose 2 ML; Start 06/02/16 at 09:00 Sodium Chloride (NS Flush) See Protocol UNSCH PRN IV FLUSH SEE PROTOCOL TABLE; Start 06/01/16 at 10:15 Heparin Sodium (Porcine) (Heparin Central Flush) See Protocol DAILY IV FLUSH Last administered on 06/10/16 08:47; Admin Dose 500 UNITS; Start 06/02/16 at 09 :00 Heparin Sodium (Porcine) (Heparin Central Flush) See Protocol UNSCH PRN IV FLUSH SEE PROTOCOL TABLE; Start 06/01/16 at 10:15 Sodium Chloride (NS Flush) UNSCH PRN IV FLUSH SEE PROTOCOL TABLE Last administered on 06/08/16 06:52; Admin Dose 10 ML; Start 06/01/16 at 10:15 Albuterol/ Ipratropium (Duoneb Neb) 1 ampule Q6HR NEB PRN NEB SOB/WHEEZING; Start 06/01/16 at 16:30; Stop 06/05/16 at 16:30; Status DC Lorazepam (Ativan Inj) 2 mg STK-MED ONCE .ROUTE Last administered on 06/01/16 17:11; Admin Dose 2 MG; Start 06/01/16 at 17:11; Stop 06/01/16 at 17:12; Status DC Fentanyl Citrate (fentaNYL INJ) 250 mcg STK-MED ONCE .ROUTE Last administered on 06/01/16 17:11; Admin Dose 150 MCG; Start 06/01/16 at 17:11; Stop 06/01/16 at 17:12; Status DC Vancomycin HCl (Vancomycin Inj) 1,000 mg STK-MED ONCE .ROUTE Last administered on 06/01/16 17:11; Admin Dose 1,000 MG; Start 06/01/16 at 17:11; Stop 06/01/16 at 17:12; Status DC Heparin Sodium (Porcine) (*HEPARIN CENTRAL FLUSH PERIprocedural ONLY) 500 units STK-MED ONCE IV FLUSH Last administered on 06/01/16 18:10; Admin Dose 500 UNITS; Start 06/01/16 at 17:18; Stop 06/01/16 at 17:19; Status DC Lidocaine/ Epinephrine (Xylocaine-Epi 1%-1:100,000 Inj) 20 ml STK-MED ONCE .ROUTE Last administered on 06/01/16 17:45; Admin Dose 20 ML; Start 06/01/16 at 17:19; Stop 06/01/16 at 17:20; Status DC Sodium Chloride (NS Flush) DAILY IVF Last administered on 06/03/16 08:21; Admin Dose 10 ML; Start 06/02/16 at 09:00; Stop 06/05/16 at 11:50; Status DC Heparin Sodium (Porcine) (Heparin Central Flush) DAILY IV FLUSH ; Start at 09:00; Stop 06/05/16 at 11:50; Status DC Sodium Chloride (NS Flush) UNSCH PRN IVF SEE PROTOCOL; Start 06/01/16 at 18:30 ; Stop 06/05/16 at 11:50; Status DC Heparin Sodium (Porcine) (Heparin Central Flush) UNSCH PRN IV FLUSH SEE PROTOCOL; Start 06/01/16 at 18:30; Stop 06/05/16 at 11:50; Status DC Acetaminophen (Tylenol) 325 mg Q4H PRN PO FEVER > 101.5 Last administered on 21:23; Admin Dose 325 MG; Start 06/03/16 at 20:30; Stop 06/03/16 at 21: 25; Status DC Acetaminophen (Tylenol) 650 mg Q4H PRN PO FEVER > 101.5; Start 06/03/16 at 21: 25 Vancomycin HCl (Vancomycin Inj) 1,000 mg STK-MED ONCE .ROUTE Last administered on 06/05/16 09:41; Admin Dose 1,000 MG; Start 06/05/16 at 09:41; Stop 06/05/16 at 09:42; Status DC Midazolam HCl (Versed Inj) 5 mg STK-MED ONCE .ROUTE Last administered on 09:51; Admin Dose 5 MG; Start 06/05/16 at 09:51; Stop 06/05/16 at 09:52; Status DC Fentanyl Citrate (fentaNYL INJ) 250 mcg STK-MED ONCE .ROUTE Last administered on 06/05/16 09:52; Admin Dose 250 MCG; Start 06/05/16 at 09:52; Stop 06/05/16 at 09:53; Status DC Heparin Sodium (Porcine) (*HEPARIN CENTRAL FLUSH PERIprocedural ONLY) 500 units STK-MED ONCE IV FLUSH Last administered on 06/05/16 11:15; Admin Dose 500 UNITS; Start 06/05/16 at 10:27; Stop 06/05/16 at 10:28; Status DC Lidocaine/ Epinephrine (Xylocaine-Epi 1%-1:100,000 Inj) 20 ml STK-MED ONCE .ROUTE Last administered on 06/05/16 11:00; Admin Dose 15 ML; Start 06/05/16 at 10:27; Stop 06/05/16 at 10:28; Status DC Sodium Chloride (NS Flush) DAILY IVF ; Start 06/06/16 at 09:00 Heparin Sodium (Porcine) (Heparin Central Flush) DAILY IV FLUSH ; Start at 09:00 Sodium Chloride (NS Flush) UNSCH PRN IVF SEE PROTOCOL Last administered on 05:29; Admin Dose 10 ML; Start 06/05/16 at 11:45 Heparin Sodium (Porcine) UNSCH PRN IV FLUSH SEE PROTOCOL; Start 06/05/16 at 11 :45 Ceftriaxone Sodium/Sodium Chloride (Rocephin Inj/NS Inj) 100 ml @ 200 mls/hr Q24H IV Last administered on 06/10/16 12:05; Admin Dose 200 MLS/HR; Start at 13:00 Propofol (Diprivan 200 Mg/20 ml Inj) 1,200 mg STK-MED ONCE IV ; Start 05/25/16 at 13:34; Stop 06/07/16 at 13:35; Status DC Phenylephrine HCl (Neosynephrine/ NS 1000 Mcg/10ml Syr) 1,000 mcg STK-MED ONCE IV ; Start 05/25/16 at 13:34; Stop 06/07/16 at 13:35; Status DC Ondansetron HCl 4 mg 4 mg STK-MED ONCE IV PUSH ; Start 05/25/16 at 13:34; Stop 06/07/16 at 13:35; Status DC Lactated Ringer's (Lr 1000 ml Inj) 3,000 ml @ As Directed STK-MED ONCE IV ; Start 05/25/16 at 13:34; Stop 06/07/16 at 13:35; Status DC Atenolol (Tenormin) 25 mg DAILY PO Last administered on 06/10/16 08:47; Admin Dose 25 MG; Start 06/07/16 at 14:30 Ferrous Sulfate (Ferrous Sulfate) 325 mg DAILY PO Last administered on 08:48; Admin Dose 325 MG; Start 06/08/16 at 09:00 Gabapentin (Neurontin) 300 mg BID PO Last administered on 06/10/16 08:48; Admin Dose 300 MG; Start 06/09/16 at 21:00 Medical Decision Making MDM Remarks 1. Thoracic paraspinal abscess primarily T3-T9 levels 2. Thoracic osteomyelitis primarily T5 level with significant bone destruction 3. Stable neurologic function status post thoracic laminectomy, evacuation epidural and paraspinous abscess 4. Thoracic spine relatively stable on CT scan 5. Max temp past 24 hrs 100.4 degrees 6. Pain essentially controlled on current medication regimen 7. No growth in blood culture from 06/03 8. No growth in body fluid from right subclavian site on 06/01 9. Haemoglobin trending up today 10. Hyponatremia 11. Tachycardia 12. Bilateral shoulder pain, worse on the left Plan Plan Remarks Plan of care discussed with patient. PT & OT. Brace when OOB. Antibiotics per Infectious Disease. Will most likely need mid thoracic spine reconstruction & fusion surgery following completion of antibiotics. Continue present pain medication regimen. Rad Fay MD Jun 10, 2016 14:32
[2016-06-10] MEDS: ACETAMINOPHEN/HYDROcodone 325 MG/10 MG TAB PO PRN (14:46)
[2016-06-10 16:34] VITALS: BP 115/63; PULSE 88; RESP 16; TEMP 97.1; O2SAT 95
[2016-06-10 20:00] VITALS: BP 113/65; PULSE 92; RESP 18; TEMP 97.7; O2SAT 93
[2016-06-11] MEDS: HYDROmorphone HCL 4 MG TAB PO PRN ×9 (00:05→23:58)
[2016-06-11 02:03] VITALS: BP 108/58; PULSE 88; RESP 20; O2SAT 95
[2016-06-11] MEDS: HYDROmorphone HCL PF 1 MG/ML VIAL IV PRN ×4 (02:04→22:07)
[2016-06-11] MEDS: FERROUS SULFATE 325 MG (65 MG ELEMENTAL IRON) TAB PO SCH (08:00)
[2016-06-11] MEDS: MORPHINE SULFATE 15 MG CONTROLLED RELEASE TAB PO SCH ×2 (08:00→21:03)
[2016-06-11] MEDS: DOCUSATE SODIUM 100 MG CAP PO SCH ×2 (08:00→21:02)
[2016-06-11] MEDS: SENNOSIDES 8.6 MG TAB PO SCH (08:01)
[2016-06-11] MEDS: ATENOLOL 25 MG TAB PO SCH (08:01)
[2016-06-11] MEDS: SODIUM CHLORIDE 0.9% FLUSH 10 ML FLUSH IVF SCH (08:01)
[2016-06-11] MEDS: SODIUM CHLORIDE 0.9% FLUSH 10 ML FLUSH IV FLUSH SCH (08:01)
[2016-06-11] MEDS: GABAPENTIN 300 MG CAP PO SCH ×2 (08:01→21:02)
[2016-06-11] MEDS: SODIUM CHLORIDE 0.9% FLUSH 5 ML FLUSH IVF SCH ×2 (08:01→21:00)
[2016-06-11 08:47] VITALS: BP 119/67; PULSE 89; RESP 16; TEMP 97; O2SAT 94
[2016-06-11 12:28] VITALS: BP 105/59; PULSE 79; RESP 16; TEMP 97.9; O2SAT 94
[2016-06-11] MEDS: cefTRIAXone INJ 2,000 MG in SODIUM CHLORIDE 0.9% INJ 100 ML IV SCH (13:00)
--- NOTE | 2016-06-11 15:53 | HHI.NSPN ---
Note Status Status: Progress Note Interval History Diagnosis 1. Thoracic paraspinal abscess primarily T3-T9 levels 2. Thoracic osteomyelitis primarily T5 level the significant bone destruction Interval History 05/25/16: T4-T5 laminectomy, evacuation epidural and paraspinous abscess 05/29/16: Drain discontinued. 06/01/16: Caro catheter placed. Patient states he is doing all right when seen this evening. 06/02/16: Patient doing well today. States that prior to Caro placement Interventional Radiology had to drain an abscess. Culture sent & pending. 06/05/16: Caro replaced by Interventional Radiology. 06/06/16: Some pain to left shoulder since he slept on it during the night, otherwise he is doing "pretty good." He did state that which ever side he slept on that shoulder was sore when he would wake up. 06/07/16: Still complains of bilateral shoulder pain that radiates between the left & right. He has no other complaints. 06/08/16: Patient doing well except for the shoulder pain that feels deep inside the joint, mostly on the left. States he was seen earlier and started on med to lower heart rate. 06/09/16: Still with shoulder pain, mostly to the left but some on the right. Otherwise he is doing good. 06/10/16: Continues with left shoulder pain. Otherwise doing well. 06/11/16: Continues with left shoulder pain. No new issues. Labs, Micro, & Vital Signs Results Date Time Temp Pulse Resp B/P Pulse Ox O2 Delivery O2 Flow Rate FiO2 06/11/16 12:28 97.9 79 16 105/59 94 06/11/16 08:47 97.0 89 16 119/67 94 06/11/16 02:03 88 20 108/58 95 06/10/16 20:00 97.7 92 18 113/65 93 06/10/16 16:34 97.1 88 16 115/63 95 06/11/16 07:00 Intake Total 360 ml Output Total 1460 ml Balance -1100 ml Constitutional Vital Signs Date Time Temp Pulse Resp B/P Pulse Ox O2 Delivery O2 Flow Rate FiO2 06/11/16 12:28 97.9 79 16 105/59 94 06/11/16 08:47 97.0 89 16 119/67 94 06/11/16 02:03 88 20 108/58 95 06/10/16 20:00 97.7 92 18 113/65 93 06/10/16 16:34 97.1 88 16 115/63 95 06/11/16 07:00 Intake Total 360 ml Output Total 1460 ml Balance -1100 ml Review of Systems/Exam Exam Constitutional: Laying in bed watching TV, no apparent distress, affect better. HEENT: Normocephalic, atraumatic. Neck: Soft, supple, no meningismus or nuchal rigidity. Resp: CTAB w/o W/R/R, equal excursion, non-laboured, on RA. CV: RRR w/o M/G/R, cap refill < 2 sec. GI: Abdomen soft, non-tender, positive bowel sounds. Back: Mildly TTP over surgical incision, dressing dry & intact, incision w/ intact steri-strips, w/o any evident drainage, erythema or streaking. Extremities: JENKINS, no clubbing, deformity or discolouration. Left shoulder & proximal arm mildly TTP. Neuro: AAOx3. Speech clear & appropriate. Follows commands. Motor strength equal throughout all major extensor & flexion muscle groups. Sensation grossly intact to light touch all extremities. Medications Current Medications Current Medications Vancomycin HCl/ Sodium Chloride (Vancomycin Inj/ NS 250 ml Inj) 250 ml @ 250 mls/hr Q12H IV Last administered on 05/24/16 05:46; Start 05/24/16 at 05:00; Stop 05/24/16 at 12:35; Status DC Acetaminophen/ Hydrocodone Bitart ([place] 5-325 Mg) 1 tab Q4H PRN PO PAIN SCALE 3 TO 5; Start 05/24/16 at 04:30; Stop 05/30/16 at 18:08; Status DC Oxycodone/ Acetaminophen (Percocet 10-325 Mg) 1 tab Q6H PRN PO PAIN SCALE 6 TO 10 Last administered on 05/29/16 06:14; Start 05/24/16 at 04:30; Stop 05/29/16 at 11:31; Status DC Hydromorphone HCl (Dilaudid Pf Inj) 1 mg Q3H PRN IV PAIN6-10 not controlled PO med Last administered on 05/30/16 12:32; Start 05/24/16 at 04:30; Stop at 14:43; Status DC Morphine Sulfate (Morphine Inj) 4 mg Q3H PRN IV BREAKTHROUGH PAIN; Start at 04:30; Stop 05/30/16 at 18:08; Status DC Naloxone HCl (Narcan Inj) 0.4 mg UNSCH PRN IV SEE LABEL COMMENTS; Start at 04:30 Morphine Sulfate (Oramorph Sr) 15 mg Q12HR PO Last administered on 05/26/16 07 :54; Start 05/24/16 at 21:00; Stop 05/26/16 at 11:42; Status DC Diazepam (Valium) 5 mg ONCE ONCE PO Last administered on 05/24/16 10:08; Start 05/24/16 at 09:45; Stop 05/24/16 at 09:49; Status DC Iohexol (Omnipaque 350 Inj) 60 ml STK-MED ONCE IV Last administered on 10:29; Start 05/24/16 at 10:29; Stop 05/24/16 at 10:30; Status DC Gadodiamide (Omniscan Pf Inj) 12 ml STK-MED ONCE IV Last administered on 12:41; Start 05/24/16 at 12:41; Stop 05/24/16 at 12:42; Status DC Insulin Aspart (NovoLOG SUPPLEMENTAL SCALE) 1 ACHS SLIDING SCALE SQ Last administered on 05/24/16 20:52; Start 05/24/16 at 16:00; Stop 05/26/16 at 12:19 ; Status DC Dextrose (D50w (Vial) Inj) 25 ml UNSCH PRN IV PUSH HYPOGLYCEMIA - SEE COMMENTS ; Start 05/24/16 at 14:15 Glucagon (Glucagon Inj) 1 mg UNSCH PRN OTHER HYPOGLYCEMIA-SEE COMMENTS; Start 05/24/16 at 14:15 Albuterol/ Ipratropium (Duoneb Neb) 1 ampule Q6HR WHILE AWAKE NEB NEB Last administered on 05/28/16 08:00; Start 05/24/16 at 16:00; Stop 05/28/16 at 16:00 ; Status DC Albuterol Sulfate (Ventolin Hfa Inh) 2 puff Q4H PRN INH Dyspnea Last administered on 06/03/16 08:24; Start 05/24/16 at 16:00 Thrombin (Thrombin Top Soln) 10,000 units STK-MED ONCE .ROUTE Last administered on 05/25/16 19:39; Start 05/25/16 at 12:41; Stop 05/25/16 at 12:42 ; Status DC Gelatin (Gelfoam 100 Top) 1 foam STK-MED ONCE .ROUTE Last administered on 19:30; Start 05/25/16 at 12:41; Stop 05/25/16 at 12:42; Status DC Gentamicin Sulfate (Gentamicin Inj) 240 mg STK-MED ONCE .ROUTE Last administered on 05/25/16 19:39; Start 05/25/16 at 12:41; Stop 05/25/16 at 12:42 ; Status DC Lidocaine/ Epinephrine (Xylocaine-Epi 1%-1:100,000 Inj) 40 ml STK-MED ONCE .ROUTE ; Start 05/25/16 at 12:41; Stop 05/25/16 at 12:42; Status DC Acetaminophen (Ofirmev Inj) 1,000 mg STK-MED ONCE IV ; Start 05/25/16 at 12:47; Stop 05/25/16 at 12:48; Status DC Artificial Tears (Lacrilube Opht Oint) 3.5 applic STK-MED ONCE .ROUTE ; Start at 12:47; Stop 05/25/16 at 12:48; Status DC Midazolam HCl (Versed Inj) 2 mg STK-MED ONCE .ROUTE ; Start 05/25/16 at 12:47; Stop 05/25/16 at 12:48; Status DC Fentanyl Citrate (fentaNYL INJ) 500 mcg STK-MED ONCE .ROUTE ; Start 05/25/16 at 12:47; Stop 05/25/16 at 12:48; Status DC Hydromorphone HCl 2 mg 2 mg STK-MED ONCE .ROUTE Last administered on 05/25/16 14:32; Start 05/25/16 at 14:31; Stop 05/25/16 at 14:32; Status DC Cefazolin Sodium/ Dextrose 50 ml @ 100 mls/hr Q8H IV Last administered on 06/06 08:24; Start 05/25/16 at 17:00; Stop 06/06/16 at 11:25; Status DC Vancomycin HCl 1500 mg/Sodium Chloride 515 ml @ 257.5 mls/ hr ONCE ONCE IV ; Start 05/25/16 at 18:00; Stop 05/25/16 at 19:59; Status DC Pharmacy Profile Note 0 ml @ 0 mls/hr UNSCH OTHER ; Start 05/25/16 at 17:00; Stop 05/27/16 at 11:27; Status DC Vancomycin HCl/ Sodium Chloride (Vancomycin Inj/ NS 250 ml Inj) 250 ml @ 250 mls/hr Q8H IV Last administered on 05/27/16 02:56; Start 05/26/16 at 04:00; Stop 05/27/16 at 11:27; Status DC Miscellaneous Information SPECIFIC LAB TO BE BRISEYDA... ONCE ONCE .XX Last administered on 05/26/16 19:45; Start 05/26/16 at 19:45; Stop 05/26/16 at 19:46 ; Status DC Potassium Chloride (KCl 20 Meq Premix Inj) 100 ml @ 50 mls/hr Q2H IV ; Start at 18:00; Stop 05/25/16 at 21:59; Status DC Docusate Sodium (Colace) 100 mg BID PO Last administered on 06/11/16 08:00; Start 05/25/16 at 21:00 Sennosides (Senokot) 17.2 mg DAILY PO Last administered on 06/11/16 08:01; Start 05/25/16 at 18:00 Fentanyl Citrate (fentaNYL INJ) 250 mcg STK-MED ONCE .ROUTE ; Start 05/25/16 at 18:07; Stop 05/25/16 at 18:08; Status DC Hydromorphone HCl (Dilaudid Pf Inj) 2 mg STK-MED ONCE .ROUTE ; Start 05/25/16 at 18:07; Stop 05/25/16 at 18:08; Status DC IV Flush (NS Flush) 2 ml UNSCH PRN IVF FLUSH AFTER USING IV ACCESS Last administered on 05/29/16 22:48; Start 05/25/16 at 21:45 IV Flush 2 ml 2 ml BID IVF Last administered on 06/11/16 08:01; Start at 09:00 Potassium Chloride/Dextrose/ Sod Cl (D5-1/2 NS + KCl 20 Meq Inj) 1,000 ml @ 100 mls/hr Q10H IV Last administered on 05/29/16 00:09; Start 05/25/16 at 21: 43; Stop 05/29/16 at 11:31; Status DC Hydromorphone HCl (*DILAUDID PF INJ PERIprocedural ONLY) 1 mg STK-MED ONCE .ROUTE Last administered on 05/25/16 22:03; Start 05/25/16 at 22:03; Stop at 22:05; Status DC Morphine Sulfate 30 mg 30 mg Q12HR PO Last administered on 05/30/16 09:33; Start 05/26/16 at 21:00; Stop 05/30/16 at 18:08; Status DC Magnesium Sulfate/ Dextrose (Magnesium Sulfate 1 Gm Premix) 100 ml @ 100 mls/ hr ONCE ONCE IV Last administered on 05/26/16 15:12; Start 05/26/16 at 13:00 ; Stop 05/26/16 at 13:59; Status DC Miscellaneous Information SPECIFIC LAB TO BE DRAWN:VANCO TROUGH DATE TO BE DR... ONCE ONCE .XX ; Start 05/27/16 at 19:45; Stop 05/27/16 at 19:45; Status DC Pharmacy Profile Note 0 ml @ 0 mls/hr UNSCH OTHER ; Start 05/27/16 at 12:00; Stop 05/28/16 at 12:32; Status DC Vancomycin HCl/ Sodium Chloride (Vancomycin Inj/ NS 250 ml Inj) 250 ml @ 250 mls/hr Q8H IV Last administered on 05/28/16 11:49; Start 05/27/16 at 12:00; Stop 05/28/16 at 12:32; Status DC Miscellaneous Information SPECIFIC LAB TO BE DRAWN:VANCOMY... ONCE ONCE .XX ; Start 05/28/16 at 19:45; Stop 05/28/16 at 19:46; Status Cancel Hydromorphone HCl (Dilaudid) 4 mg Q4H PRN PO PAIN SCALE 6 TO 10 Last administered on 05/30/16 14:56; Start 05/29/16 at 11:30; Stop 05/30/16 at 18:08 ; Status DC Rifampin (Rifampin) 300 mg Q12HR PO Last administered on 06/06/16 08:21; Start 05/30/16 at 13:00; Stop 06/06/16 at 11:25; Status DC Hydromorphone HCl (Dilaudid Pf Inj) 1 mg Q4H PRN IV Breakthrough pain Last administered on 06/11/16 07:59; Start 05/30/16 at 14:41 Albuterol/ Ipratropium (Duoneb Neb) 1 ampule Q6HR WHILE AWAKE NEB NEB Last administered on 06/01/16 08:26; Start 05/30/16 at 14:45; Stop 06/01/16 at 16:26 ; Status DC Hydromorphone HCl (Dilaudid) 4 mg Q3H PRN PO PAIN SCALE 6 TO 10 Last administered on 06/11/16 12:20; Start 05/30/16 at 20:00 Acetaminophen/ Hydrocodone Bitart ([place] 10-325 Mg) 1 tab Q4H PRN PO PAIN SCALE 3 TO 5 Last administered on 06/04/16 23:36; Start 05/30/16 at 18:00 Morphine Sulfate (Oramorph Sr) 15 mg Q12HR PO Last administered on 06/11/16 08 :00; Start 05/31/16 at 21:15 Sodium Chloride (NS Flush) See Protocol DAILY IV FLUSH Last administered on 08:49; Start 06/02/16 at 09:00 Sodium Chloride (NS Flush) See Protocol UNSCH PRN IV FLUSH SEE PROTOCOL TABLE; Start 06/01/16 at 10:15 Heparin Sodium (Porcine) (Heparin Central Flush) See Protocol DAILY IV FLUSH Last administered on 06/11/16 08:00; Start 06/02/16 at 09:00 Heparin Sodium (Porcine) (Heparin Central Flush) See Protocol UNSCH PRN IV FLUSH SEE PROTOCOL TABLE; Start 06/01/16 at 10:15 Sodium Chloride (NS Flush) UNSCH PRN IV FLUSH SEE PROTOCOL TABLE Last administered on 06/10/16 22:13; Start 06/01/16 at 10:15 Albuterol/ Ipratropium (Duoneb Neb) 1 ampule Q6HR NEB PRN NEB SOB/WHEEZING; Start 06/01/16 at 16:30; Stop 06/05/16 at 16:30; Status DC Lorazepam (Ativan Inj) 2 mg STK-MED ONCE .ROUTE Last administered on 06/01/16 17:11; Start 06/01/16 at 17:11; Stop 06/01/16 at 17:12; Status DC Fentanyl Citrate (fentaNYL INJ) 250 mcg STK-MED ONCE .ROUTE Last administered on 06/01/16 17:11; Start 06/01/16 at 17:11; Stop 06/01/16 at 17:12; Status DC Vancomycin HCl (Vancomycin Inj) 1,000 mg STK-MED ONCE .ROUTE Last administered on 06/01/16 17:11; Start 06/01/16 at 17:11; Stop 06/01/16 at 17:12; Status DC Heparin Sodium (Porcine) (*HEPARIN CENTRAL FLUSH PERIprocedural ONLY) 500 units STK-MED ONCE IV FLUSH Last administered on 06/01/16 18:10; Start 06/01/16 at 17:18; Stop 06/01/16 at 17:19; Status DC Lidocaine/ Epinephrine (Xylocaine-Epi 1%-1:100,000 Inj) 20 ml STK-MED ONCE .ROUTE Last administered on 06/01/16 17:45; Start 06/01/16 at 17:19; Stop at 17:20; Status DC Sodium Chloride (NS Flush) DAILY IVF Last administered on 06/03/16 08:21; Start 06/02/16 at 09:00; Stop 06/05/16 at 11:50; Status DC Heparin Sodium (Porcine) (Heparin Central Flush) DAILY IV FLUSH ; Start at 09:00; Stop 06/05/16 at 11:50; Status DC Sodium Chloride (NS Flush) UNSCH PRN IVF SEE PROTOCOL; Start 06/01/16 at 18:30 ; Stop 06/05/16 at 11:50; Status DC Heparin Sodium (Porcine) (Heparin Central Flush) UNSCH PRN IV FLUSH SEE PROTOCOL; Start 06/01/16 at 18:30; Stop 06/05/16 at 11:50; Status DC Acetaminophen (Tylenol) 325 mg Q4H PRN PO FEVER > 101.5 Last administered on 21:23; Start 06/03/16 at 20:30; Stop 06/03/16 at 21:25; Status DC Acetaminophen (Tylenol) 650 mg Q4H PRN PO FEVER > 101.5; Start 06/03/16 at 21: 25 Vancomycin HCl (Vancomycin Inj) 1,000 mg STK-MED ONCE .ROUTE Last administered on 06/05/16 09:41; Start 06/05/16 at 09:41; Stop 06/05/16 at 09:42; Status DC Midazolam HCl (Versed Inj) 5 mg STK-MED ONCE .ROUTE Last administered on 09:51; Start 06/05/16 at 09:51; Stop 06/05/16 at 09:52; Status DC Fentanyl Citrate (fentaNYL INJ) 250 mcg STK-MED ONCE .ROUTE Last administered on 06/05/16 09:52; Start 06/05/16 at 09:52; Stop 06/05/16 at 09:53; Status DC Heparin Sodium (Porcine) (*HEPARIN CENTRAL FLUSH PERIprocedural ONLY) 500 units STK-MED ONCE IV FLUSH Last administered on 06/05/16 11:15; Start 06/05/16 at 10:27; Stop 06/05/16 at 10:28; Status DC Lidocaine/ Epinephrine (Xylocaine-Epi 1%-1:100,000 Inj) 20 ml STK-MED ONCE .ROUTE Last administered on 06/05/16 11:00; Start 06/05/16 at 10:27; Stop at 10:28; Status DC Sodium Chloride (NS Flush) DAILY IVF ; Start 06/06/16 at 09:00 Heparin Sodium (Porcine) (Heparin Central Flush) DAILY IV FLUSH ; Start at 09:00 Sodium Chloride (NS Flush) UNSCH PRN IVF SEE PROTOCOL Last administered on 05:29; Start 06/05/16 at 11:45 Heparin Sodium (Porcine) UNSCH PRN IV FLUSH SEE PROTOCOL; Start 06/05/16 at 11 :45 Ceftriaxone Sodium/Sodium Chloride (Rocephin Inj/NS Inj) 100 ml @ 200 mls/hr Q24H IV Last administered on 06/10/16 12:05; Start 06/06/16 at 13:00 Propofol (Diprivan 200 Mg/20 ml Inj) 1,200 mg STK-MED ONCE IV ; Start 05/25/16 at 13:34; Stop 06/07/16 at 13:35; Status DC Phenylephrine HCl (Neosynephrine/ NS 1000 Mcg/10ml Syr) 1,000 mcg STK-MED ONCE IV ; Start 05/25/16 at 13:34; Stop 06/07/16 at 13:35; Status DC Ondansetron HCl 4 mg 4 mg STK-MED ONCE IV PUSH ; Start 05/25/16 at 13:34; Stop 06/07/16 at 13:35; Status DC Lactated Ringer's (Lr 1000 ml Inj) 3,000 ml @ As Directed STK-MED ONCE IV ; Start 05/25/16 at 13:34; Stop 06/07/16 at 13:35; Status DC Atenolol (Tenormin) 25 mg DAILY PO Last administered on 06/11/16 08:01; Start 06/07/16 at 14:30 Ferrous Sulfate (Ferrous Sulfate) 325 mg DAILY PO Last administered on 08:00; Start 06/08/16 at 09:00 Gabapentin (Neurontin) 300 mg BID PO Last administered on 06/11/16 08:01; Start 06/09/16 at 21:00 Medical Decision Making MDM Remarks 1. Thoracic paraspinal abscess primarily T3-T9 levels 2. Thoracic osteomyelitis primarily T5 level with significant bone destruction 3. Stable neurologic function status post thoracic laminectomy, evacuation epidural and paraspinous abscess 4. Thoracic spine relatively stable on CT scan 5. Max temp past 24 hrs 100.4 degrees 6. Pain essentially controlled on current medication regimen 7. No growth in blood culture from 06/03 8. No growth in body fluid from right subclavian site on 06/01 9. Haemoglobin trending up today 10. Hyponatremia 11. Tachycardia 12. Bilateral shoulder pain, worse on the left Plan Plan Remarks Plan of care discussed with patient. PT & OT. Brace when OOB. Antibiotics per Infectious Disease. Will most likely need mid thoracic spine reconstruction & fusion surgery following completion of antibiotics. Continue present pain medication regimen. Rad Fay MD Jun 11, 2016 15:53
[2016-06-11 16:16] VITALS: BP 118/63; PULSE 79; RESP 16; TEMP 98.4; O2SAT 95
[2016-06-11 20:00] VITALS: BP 111/62; PULSE 88; RESP 18; TEMP 98.1; O2SAT 93
[2016-06-12] VITALS: BP 121/73; PULSE 89; RESP 18; TEMP 99.4; O2SAT 96
[2016-06-12] MEDS: HYDROmorphone HCL PF 1 MG/ML VIAL IV PRN ×4 (02:12→19:47)
[2016-06-12] MEDS: HYDROmorphone HCL 4 MG TAB PO PRN ×6 (03:12→21:17)
[2016-06-12 07:54] VITALS: BP 132/72; PULSE 88; RESP 18; TEMP 97.4; O2SAT 94
[2016-06-12] MEDS: SODIUM CHLORIDE 0.9% FLUSH 10 ML FLUSH IV FLUSH SCH (09:00)
[2016-06-12] MEDS: SODIUM CHLORIDE 0.9% FLUSH 5 ML FLUSH IVF SCH ×2 (09:00→21:00)
[2016-06-12] MEDS: SODIUM CHLORIDE 0.9% FLUSH 10 ML FLUSH IVF SCH (09:00)
[2016-06-12] MEDS: ATENOLOL 25 MG TAB PO SCH (09:47)
[2016-06-12] MEDS: SENNOSIDES 8.6 MG TAB PO SCH (09:47)
[2016-06-12] MEDS: GABAPENTIN 300 MG CAP PO SCH ×2 (09:47→21:17)
[2016-06-12] MEDS: DOCUSATE SODIUM 100 MG CAP PO SCH ×2 (09:47→21:17)
[2016-06-12] MEDS: MORPHINE SULFATE 15 MG CONTROLLED RELEASE TAB PO SCH ×2 (09:48→21:17)
[2016-06-12] MEDS: FERROUS SULFATE 325 MG (65 MG ELEMENTAL IRON) TAB PO SCH (09:49)
--- NOTE | 2016-06-12 11:02 | HHI.IDPN ---
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 Recently treated at [facility] for ?lung abscess and recurrent spinal abscess. Now with epidural abscess same area and possibly extending into lung. Notes reviewed Temps ok C/O pain L shoulder, no change NO diarrhea No rash or itching Voiding ok WBC better C/S fluid RSC joint negative No new (+) BC OR C/S with MSSA BC also with MSSA Repeat BC negative so far Echo report - good study, valves all look normal Sputum C/S MSSA ESR 65 CRP 13 Antibiotics Rocephin Lines Caro RIJ Past Medical History Reviewed Allergies: Coded Allergies: Aspirin (Verified Allergy, Severe, 09/23/13) PATIENT STATES HE HAD A HOLE IN HIS HEART WHEN HE WAS BORN AND HE WAS TOLD NOT TO TAKE ASPIRIN. GROUP HOME MAR STATES NO KNOWN ALLERGIES PATIENT DENIES ALLERGY TO ASPIRIN. 04/01/13 Objective . Vital Signs Date Time Temp Pulse Resp B/P Pulse Ox O2 Delivery O2 Flow Rate FiO2 06/12/16 07:54 97.4 88 18 132/72 94 06/12/16 00:00 99.4 89 18 121/73 96 06/11/16 20:00 98.1 88 18 111/62 93 06/11/16 16:16 98.4 79 16 118/63 95 06/11/16 12:28 97.9 79 16 105/59 94 06/11/16 06/11/16 06/12/16 15:00 23:00 07:00 Intake Total 240 ml 940 ml 720 ml Output Total 900 ml 600 ml 600 ml Balance -660 ml 340 ml 120 ml Intake Oral 240 ml 940 ml 720 ml Output Urine Total 900 ml 600 ml 600 ml Imaging Catheter Placement X-Ray 06/05/16 0000 Signed Impressions: Service Date/Time: Sunday, June 05, 2016 10:50 - CONCLUSION: Uncomplicated Caro catheter placement as above. Chest wall cerclage stitch can be removed in approximately 10-14 days Valentin Narvaez MD Thoracic Spine CT 06/02/16 0000 Signed Impressions: Service Date/Time: Thursday, June 02, 2016 20:27 - CONCLUSION: 1. Extensive lytic destructive process along the lower endplate at T5, T6 and T7 vertebral bodies consistent with osteomyelitis. 2. There is osteomyelitis at T7 given the increased sclerosis. 3. Anterior paraspinal abscess containing air is again seen from lower T2 down to T9 level. 4. The right lower lobe mass/consolidation seen abutting the mediastinum medially is again noted. Roni Dominique MD Joint Aspiration/Injection 06/01/16 0000 Signed Impressions: Service Date/Time: May 16:59 - CONCLUSION: Uncomplicated aspiration as above. Valentin Narvaez MD Chest X-Ray 05/25/16 0000 Signed Impressions: Service Date/Time: May 22:46 - CONCLUSION: Mild vascular congestion and bibasilar atelectasis. Roshan Jain MD Thoracic Spine MRI 05/24/16 0000 Signed Impressions: Service Date/Time: Tuesday, May 24, 2016 10:40 - CONCLUSION: 1. There is extensive bilateral paraspinal abscess extending from approximately T3-T9. The abnormality appears to be centered at the T5 level where there is vertebral body height loss and fluid and enhancement in the adjacent disc spaces suggesting discitis osteomyelitis. A portion of the abnormal fluid collection extends posteriorly on the left at C5-C6. 2. The right lower lobe airspace consolidation has a connection with the adjacent right paraspinal abscess. 3. No spinal canal stenosis is identified. There is mild epidural enhancement in the anterior epidural space at T5-T7 but no epidural abscess is appreciated. Roshan Galvez MD Lumbar Spine MRI 05/24/16 0000 Signed Impressions: Service Date/Time: Tuesday, May 24, 2016 10:40 - CONCLUSION: Significant change from prior exam. No definite acute findings. See above discussion. Roshan Jain MD Chest CT 05/24/16 0000 Signed Impressions: Service Date/Time: Tuesday, May 24, 2016 10:21 - CONCLUSION: 1. Abnormal bilateral paraspinal fluid collection extending from approximately T3-T8. The appearance is highly suggestive of a paraspinal abscess. 2. Focal air space consolidation in the medial right lower lobe abutting the paraspinal process. This likely represents focal lung infection with possible central necrosis. 3. Abnormal appearance of the kidneys suggesting interstitial nephritis or ATN. 4. Partially visualized upper abdomen suggests retroperitoneal lymphadenopathy. Roshan Galvez MD Thoracic Spine MRI 05/24/16 0000 Signed Impressions: Service Date/Time: Tuesday, May 24, 2016 10:40 - CONCLUSION: 1. There is extensive bilateral paraspinal abscess extending from approximately T3-T9. The abnormality appears to be centered at the T5 level where there is vertebral body height loss and fluid and enhancement in the adjacent disc spaces suggesting discitis osteomyelitis. A portion of the abnormal fluid collection extends posteriorly on the left at C5-C6. 2. The right lower lobe airspace consolidation has a connection with the adjacent right paraspinal abscess. 3. No spinal canal stenosis is identified. There is mild epidural enhancement in the anterior epidural space at T5-T7 but no epidural abscess is appreciated. Roshan Galvez MD Lumbar Spine MRI 05/24/16 0000 Signed Impressions: Service Date/Time: Tuesday, May 24, 2016 10:40 - CONCLUSION: Significant change from prior exam. No definite acute findings. See above discussion. Roshan Jain MD Chest CT 05/24/16 0000 Signed Impressions: Service Date/Time: Tuesday, May 24, 2016 10:21 - CONCLUSION: 1. Abnormal bilateral paraspinal fluid collection extending from approximately T3-T8. The appearance is highly suggestive of a paraspinal abscess. 2. Focal air space consolidation in the medial right lower lobe abutting the paraspinal process. This likely represents focal lung infection with possible central necrosis. 3. Abnormal appearance of the kidneys suggesting interstitial nephritis or ATN. 4. Partially visualized upper abdomen suggests retroperitoneal lymphadenopathy. Roshan Galvez MD Physical Exam GENERAL: awake and alert, NAD SKIN: Warm and dry. No generalized rash HEENT: [place] conjunctivae, no petechia or hemorrhage. No scleral icterus. No injection or drainage. Moist oral mucosa. NECK: Supple, nontender, no meningeal signs. Caro site with some blood at site. Previous swelling over RSC joint very minimal now CARDIOVASCULAR: Regular rate and rhythm without murmurs, gallops, or rubs. No murmur. RESPIRATORY: Clear to auscultation. Breath sounds equal bilaterally. He has few scattered rhonchi. Decreased at the bases. GASTROINTESTINAL: Abdomen soft, mildly tender, mildly distended. No guarding or rebound. Bowel sounds are present and normoactive. No organomegaly. MUSCULOSKELETAL: Extremities without clubbing, cyanosis, or edema. No joint tenderness, effusion. No calf tenderness. L shoulder, no swelling or redness, good ROM NEUROLOGICAL: Non-focal PSYCH: Normal affect, calm and cooperative. 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 S/P OR - per NS, abscess did not communicate in thoracic cavoty Pneumonia, better Previous Rx for osteo thoracic, removal of toracic hardware last 2013, with MSSA Previous Rx MSSA osteo of spine 2011 Known IVDU Fluid collection over RSC joint, aspirated, C/S negative, looks better Neutropenia, ?meds, ?ancef, ?rifampin - better Tmeps better RECOMMENDATION Continue Rocephin Will need 8 weeks IV Abx from date of surgery - anticipated end date July 19 - then chronic oral suppression with Keflex 500 BID or Dicloxacillin 500 BID Labs weekly while on IV Abx: CBC, creat, LFT Monitor progress He is clinically doing well and stable for D/C from ID standpoint and get IV Abx out of hospital CM working on this Genie Wadsworth MD June 12, 2016 11:02
[2016-06-12 12:11] VITALS: BP 126/76; PULSE 82; RESP 18; TEMP 97.6; O2SAT 99
[2016-06-12] MEDS: cefTRIAXone INJ 2,000 MG in SODIUM CHLORIDE 0.9% INJ 100 ML IV SCH (14:06)
[2016-06-12 16:10] VITALS: BP 105/60; PULSE 81; RESP 18; TEMP 98.2; O2SAT 95
--- NOTE | 2016-06-12 19:34 | HHI.NSPN ---
(Darrion Garcia) Note Status Status: Progress Note (Darrion Garcia) Interval History Diagnosis 1. Thoracic paraspinal abscess primarily T3-T9 levels 2. Thoracic osteomyelitis primarily T5 level the significant bone destruction Interval History 05/25/16: T4-T5 laminectomy, evacuation epidural and paraspinous abscess 05/29/16: Drain discontinued. 06/01/16: Caro catheter placed. Patient states he is doing all right when seen this evening. 06/02/16: Patient doing well today. States that prior to Caro placement Interventional Radiology had to drain an abscess. Culture sent & pending. 06/05/16: Caro replaced by Interventional Radiology. 06/06/16: Some pain to left shoulder since he slept on it during the night, otherwise he is doing "pretty good." He did state that which ever side he slept on that shoulder was sore when he would wake up. 06/07/16: Still complains of bilateral shoulder pain that radiates between the left & right. He has no other complaints. 06/08/16: Patient doing well except for the shoulder pain that feels deep inside the joint, mostly on the left. States he was seen earlier and started on med to lower heart rate. 06/09/16: Still with shoulder pain, mostly to the left but some on the right. Otherwise he is doing good. 06/10/16: Continues with left shoulder pain. Otherwise doing well. 06/11/16: Continues with left shoulder pain. No new issues. 06/12/16: Patient still with complaint of left shoulder pain and states not able to take a deep breath due to the pain, otherwise no other complaints. (Darrion Garcia) Labs, Micro, & Vital Signs Constitutional Vital Signs Date Time Temp Pulse Resp B/P Pulse Ox O2 Delivery O2 Flow Rate FiO2 06/12/16 16:10 98.2 81 18 105/60 95 06/12/16 12:11 97.6 82 18 126/76 99 06/12/16 07:54 97.4 88 18 132/72 94 06/12/16 00:00 99.4 89 18 121/73 96 06/11/16 20:00 98.1 88 18 111/62 93 06/12/16 07:00 Intake Total 1900 ml Output Total 2100 ml Balance -200 ml (Darrion Garcia) Review of Systems/Exam ROS Neuro: Denies any headache, dizziness, numbness or tingling. Neck: Denies any neck pain. Respiratory: Denies any shortness of breath or productive cough. Cardiac: Denies any chest pain, palpitation or irregular heart rate. GI: Denies any abdominal pain, nausea, vomiting or bowel incontinence. : Denies any bladder incontinence. Back: Back doing better. Extremities: Left shoulder pain that makes it difficult to get a deep breath. Exam Constitutional: Laying in bed watching TV, no apparent distress, affect flat. HEENT: Normocephalic, atraumatic. Neck: Soft, supple, no meningismus or nuchal rigidity. Resp: CTAB w/o W/R/R, equal excursion, non-laboured, on RA. CV: RRR w/o M/G/R, cap refill < 2 sec. GI: Abdomen soft, non-tender, positive bowel sounds. Back: Minimally TTP over surgical incision, dressing dry & intact, incision w/ intact steri-strips, w/o any evident drainage, erythema or streaking. Extremities: JENKINS, no clubbing, deformity or discolouration. Left shoulder TTP. Neuro: AAOx3. Speech clear & appropriate. Follows commands. Motor strength equal throughout all major extensor & flexion muscle groups. Sensation grossly intact to light touch all extremities. (Darrion Garcia) Medications Current Medications Current Medications Medications (Trade) Dose Ordered Sig/Rony Route Start Time Stop Time Status Last Admin (Narcan Inj) 0.4 mg UNSCH PRN IV 05/24/16 04:30 (D50w (Vial) Inj) 25 ml UNSCH PRN IV PUSH 05/24/16 14:15 (Glucagon Inj) 1 mg UNSCH PRN OTHER 05/24/16 14:15 (Ventolin Hfa Inh) 2 puff Q4H PRN INH 05/24/16 16:00 06/03/16 08:24 (Colace) 100 mg BID PO 05/25/16 21:00 06/12/16 09:47 (Senokot) 17.2 mg DAILY PO 05/25/16 18:00 06/12/16 09:47 (NS Flush) 2 ml UNSCH PRN IVF 05/25/16 21:45 05/29/16 22:48 (NS Flush) 2 ml BID IVF 05/26/16 09:00 06/11/16 21:00 (Dilaudid Pf Inj) 1 mg Q4H PRN IV 05/30/16 14:41 06/12/16 11:42 (Dilaudid) 4 mg Q3H PRN PO 05/30/16 20:00 06/12/16 17:03 ([place] 10-325 Mg) 1 tab Q4H PRN PO 05/30/16 18:00 06/04/16 23:36 (Oramorph Sr) 15 mg Q12HR PO 05/31/16 21:15 06/12/16 09:48 (NS Flush) See Protocol DAILY IV FLUSH 06/02/16 09:00 06/12/16 09:00 (NS Flush) See Protocol UNSCH PRN IV FLUSH 06/01/16 10:15 (Heparin Central Flush) See Protocol DAILY IV FLUSH 06/02/16 09:00 06/12/16 09:49 (Heparin Central Flush) See Protocol UNSCH PRN IV FLUSH 06/01/16 10:15 (NS Flush) UNSCH PRN IV FLUSH 06/01/16 10:15 06/10/16 22:13 (Tylenol) 650 mg Q4H PRN PO 06/03/16 21:25 (NS Flush) DAILY IVF 06/06/16 09:00 (Heparin Central Flush) DAILY IV FLUSH 06/06/16 09:00 (NS Flush) UNSCH PRN IVF 06/05/16 11:45 06/07/16 05:29 Heparin Sodium (Porcine) UNSCH PRN IV FLUSH 06/05/16 11:45 (Rocephin Inj/NS Inj) 100 ml @ 200 mls/hr Q24H IV 06/06/16 13:00 06/12/16 14:06 (Tenormin) 25 mg DAILY PO 06/07/16 14:30 06/12/16 09:47 (Ferrous Sulfate) 325 mg DAILY PO 06/08/16 09:00 06/12/16 09:49 (Neurontin) 300 mg BID PO 06/09/16 21:00 06/12/16 09:47 (Darrion Garcia) Medical Decision Making MDM Remarks Impression: 1. Thoracic paraspinal abscess primarily T3-T9 levels 2. Thoracic osteomyelitis primarily T5 level with significant bone destruction 3. Stable neurologic function status post thoracic laminectomy, evacuation epidural and paraspinous abscess 4. Thoracic spine relatively stable on CT scan 5. Max temp past 24 hrs 100.4 degrees 6. Pain essentially controlled on current medication regimen 7. No growth in blood culture from 06/03 8. No growth in body fluid from right subclavian site on 06/01 9. Haemoglobin trending up today 10. Hyponatremia 11. Tachycardia 12. Bilateral shoulder pain (Darrion Garcia) Plan Plan Remarks Plan of care discussed with patient. PT & OT. Brace when OOB. Antibiotics per Infectious Disease. Will most likely need mid thoracic spine reconstruction & fusion surgery following completion of antibiotics. Continue present pain medication regimen. Neurologically intact. Right shoulder pain improved, only to left now. Patient states discuss has occurred in regards to sending him to [facility] but he is resistant to that. (Darrion Garcia) Attending Statement I have personally seen and examined the patient on the date of this note. Pertinent documentation and study results have been reviewed by the undersigned. I have personally developed the treatment plan and performed medical decision making. Agree with findings, exam, and treatment plan as noted above. Continues left shoulder and upper chest wall pain Likely related to thoracic radiculitis from abscess Gabapentin not helping Muscle relaxants as needed He may be transferred To [facility] facility from a neurosurgical standpoint. Discussed with the patient and he seems to be in agreement. He is mainly concerned that his medications do not get changed upon transfer. (Jeffry Pickard MD) Darrion Garcia June 12, 2016 19:34 Jeffry Pickard MD June 12, 2016 21:48
[2016-06-12 20:00] VITALS: BP 137/72; PULSE 82; RESP 20; TEMP 99; O2SAT 96
[2016-06-12] MEDS: METHOCARBAMOL 500 MG TAB PO PRN (23:41)
[2016-06-13] MEDS: HYDROmorphone HCL 4 MG TAB PO PRN ×8 (00:17→21:06)
[2016-06-13] MEDS: HYDROmorphone HCL PF 1 MG/ML VIAL IV PRN ×4 (02:25→22:22)
[2016-06-13 08:12] VITALS: BP 135/70; PULSE 93; RESP 18; TEMP 99.3; O2SAT 94
[2016-06-13] MEDS: SODIUM CHLORIDE 0.9% FLUSH 5 ML FLUSH IVF SCH ×2 (09:00→21:00)
[2016-06-13] MEDS: SODIUM CHLORIDE 0.9% FLUSH 10 ML FLUSH IVF SCH (09:00)
[2016-06-13] MEDS: GABAPENTIN 300 MG CAP PO SCH (09:40)
[2016-06-13] MEDS: SODIUM CHLORIDE 0.9% FLUSH 10 ML FLUSH IV FLUSH SCH (09:40)
[2016-06-13] MEDS: ATENOLOL 25 MG TAB PO SCH (09:40)
[2016-06-13] MEDS: DOCUSATE SODIUM 100 MG CAP PO SCH ×2 (09:40→21:02)
[2016-06-13] MEDS: MORPHINE SULFATE 15 MG CONTROLLED RELEASE TAB PO SCH ×2 (09:40→21:02)
[2016-06-13] MEDS: FERROUS SULFATE 325 MG (65 MG ELEMENTAL IRON) TAB PO SCH (09:40)
[2016-06-13] MEDS: SENNOSIDES 8.6 MG TAB PO SCH (09:40)
--- NOTE | 2016-06-13 11:58 | HHI.IDPN ---
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 Recently treated at [facility] for ?lung abscess and recurrent spinal abscess. Now with epidural abscess same area and possibly extending into lung. Notes reviewed Temps ok C/O pain L shoulder which is unchanged Being evakluated for transfer to [facility] He will get his IV Abx in house Patient homeless, no family or friend support No diarrhea No rash or itching Voiding ok Antibiotics Rocephin Lines Caro RIJ Past Medical History Reviewed Allergies: Coded Allergies: Aspirin (Verified Allergy, Severe, 09/23/13) PATIENT STATES HE HAD A HOLE IN HIS HEART WHEN HE WAS BORN AND HE WAS TOLD NOT TO TAKE ASPIRIN. LONGTERM MAR STATES NO KNOWN ALLERGIES PATIENT DENIES ALLERGY TO ASPIRIN. 04/01/13 Objective . Vital Signs Date Time Temp Pulse Resp B/P Pulse Ox O2 Delivery O2 Flow Rate FiO2 06/13/16 11:18 16 06/13/16 11:18 16 06/13/16 08:12 99.3 93 18 135/70 94 06/12/16 20:00 99.0 82 20 137/72 96 06/12/16 16:10 98.2 81 18 105/60 95 06/12/16 12:11 97.6 82 18 126/76 99 06/12/16 06/12/16 06/13/16 15:00 23:00 07:00 Intake Total 600 ml Output Total 200 ml 200 ml 500 ml Balance 400 ml -200 ml -500 ml Intake Oral 600 ml Output Urine Total 200 ml 200 ml 500 ml # Bowel Movements 1 0 Imaging Catheter Placement X-Ray 06/05/16 0000 Signed Impressions: Service Date/Time: Sunday, June 05, 2016 10:50 - CONCLUSION: Uncomplicated Caro catheter placement as above. Chest wall cerclage stitch can be removed in approximately 10-14 days Valentin Narvaez MD Thoracic Spine CT 06/02/16 0000 Signed Impressions: Service Date/Time: Thursday, June 02, 2016 20:27 - CONCLUSION: 1. Extensive lytic destructive process along the lower endplate at T5, T6 and T7 vertebral bodies consistent with osteomyelitis. 2. There is osteomyelitis at T7 given the increased sclerosis. 3. Anterior paraspinal abscess containing air is again seen from lower T2 down to T9 level. 4. The right lower lobe mass/consolidation seen abutting the mediastinum medially is again noted. Roni Dominique MD Joint Aspiration/Injection 06/01/16 0000 Signed Impressions: Service Date/Time: May 16:59 - CONCLUSION: Uncomplicated aspiration as above. Valentin Narvaez MD Chest X-Ray 05/25/16 0000 Signed Impressions: Service Date/Time: May 22:46 - CONCLUSION: Mild vascular congestion and bibasilar atelectasis. Roshan Jain MD Thoracic Spine MRI 05/24/16 0000 Signed Impressions: Service Date/Time: Tuesday, May 24, 2016 10:40 - CONCLUSION: 1. There is extensive bilateral paraspinal abscess extending from approximately T3-T9. The abnormality appears to be centered at the T5 level where there is vertebral body height loss and fluid and enhancement in the adjacent disc spaces suggesting discitis osteomyelitis. A portion of the abnormal fluid collection extends posteriorly on the left at C5-C6. 2. The right lower lobe airspace consolidation has a connection with the adjacent right paraspinal abscess. 3. No spinal canal stenosis is identified. There is mild epidural enhancement in the anterior epidural space at T5-T7 but no epidural abscess is appreciated. Roshan Galvez MD Lumbar Spine MRI 05/24/16 0000 Signed Impressions: Service Date/Time: Tuesday, May 24, 2016 10:40 - CONCLUSION: Significant change from prior exam. No definite acute findings. See above discussion. Roshna Jain MD Chest CT 05/24/16 0000 Signed Impressions: Service Date/Time: Tuesday, May 24, 2016 10:21 - CONCLUSION: 1. Abnormal bilateral paraspinal fluid collection extending from approximately T3-T8. The appearance is highly suggestive of a paraspinal abscess. 2. Focal air space consolidation in the medial right lower lobe abutting the paraspinal process. This likely represents focal lung infection with possible central necrosis. 3. Abnormal appearance of the kidneys suggesting interstitial nephritis or ATN. 4. Partially visualized upper abdomen suggests retroperitoneal lymphadenopathy. Roshan Galvez MD Thoracic Spine MRI 05/24/16 0000 Signed Impressions: Service Date/Time: Tuesday, May 24, 2016 10:40 - CONCLUSION: 1. There is extensive bilateral paraspinal abscess extending from approximately T3-T9. The abnormality appears to be centered at the T5 level where there is vertebral body height loss and fluid and enhancement in the adjacent disc spaces suggesting discitis osteomyelitis. A portion of the abnormal fluid collection extends posteriorly on the left at C5-C6. 2. The right lower lobe airspace consolidation has a connection with the adjacent right paraspinal abscess. 3. No spinal canal stenosis is identified. There is mild epidural enhancement in the anterior epidural space at T5-T7 but no epidural abscess is appreciated. Roshan Galvez MD Lumbar Spine MRI 05/24/16 0000 Signed Impressions: Service Date/Time: Tuesday, May 24, 2016 10:40 - CONCLUSION: Significant change from prior exam. No definite acute findings. See above discussion. Roshan Jain MD Chest CT 05/24/16 0000 Signed Impressions: Service Date/Time: Tuesday, May 24, 2016 10:21 - CONCLUSION: 1. Abnormal bilateral paraspinal fluid collection extending from approximately T3-T8. The appearance is highly suggestive of a paraspinal abscess. 2. Focal air space consolidation in the medial right lower lobe abutting the paraspinal process. This likely represents focal lung infection with possible central necrosis. 3. Abnormal appearance of the kidneys suggesting interstitial nephritis or ATN. 4. Partially visualized upper abdomen suggests retroperitoneal lymphadenopathy. Roshan Galvez MD Physical Exam GENERAL: awake and alert, NAD SKIN: Warm and dry. No generalized rash HEENT: [place] conjunctivae, no petechia or hemorrhage. No scleral icterus. No injection or drainage. Moist oral mucosa. NECK: Supple, nontender, no meningeal signs. Caro site with some blood at site. Previous swelling over RSC joint very minimal now CARDIOVASCULAR: Regular rate and rhythm without murmurs, gallops, or rubs. No murmur. RESPIRATORY: Clear to auscultation. Breath sounds equal bilaterally. He has few scattered rhonchi. Decreased at the bases. GASTROINTESTINAL: Abdomen soft, mildly tender, mildly distended. No guarding or rebound. Bowel sounds are present and normoactive. No organomegaly. MUSCULOSKELETAL: Extremities without clubbing, cyanosis, or edema. No joint tenderness, effusion. No calf tenderness. L shoulder, no swelling or redness, good ROM NEUROLOGICAL: Non-focal PSYCH: Normal affect, calm and cooperative. 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 S/P OR - per NS, abscess did not communicate in thoracic cavity Pneumonia, better Previous Rx for osteo thoracic, removal of thoracic hardware last 2013, with MSSA Previous Rx MSSA osteo of spine 2011 Known IVDU Fluid collection over RSC joint, aspirated, C/S negative, looks better Neutropenia, ?meds, ?ancef, ?rifampin - better Temps better RECOMMENDATION Continue Rocephin Will need 8 weeks IV Abx from date of surgery - anticipated end date July 19 - then chronic oral suppression with Keflex 500 BID or Dicloxacillin 500 BID Labs weekly while on IV Abx: CBC, creat, LFT - to be ordered by [facility], when he gets transferred to [facility] Monitor progress He is clinically doing well and stable for D/C from ID standpoint, but per CM he will complete Rx in house Repeat ESR and CRP Genie Wadsworth MD June 13, 2016 11:58
[2016-06-13 12:03] VITALS: BP 124/66; PULSE 83; RESP 18; TEMP 99.7; O2SAT 94
[2016-06-13] MEDS: cefTRIAXone INJ 2,000 MG in SODIUM CHLORIDE 0.9% INJ 100 ML IV SCH (12:55)
[2016-06-13 16:26] VITALS: BP 109/54; PULSE 89; RESP 18; TEMP 99.8; O2SAT 99
[2016-06-13] MEDS: METHOCARBAMOL 500 MG TAB PO PRN (16:38)
--- NOTE | 2016-06-13 17:14 | HHI.NSPN ---
(Darrion Garcia) Note Status Status: Progress Note (Darrion Garcia) Interval History Diagnosis 1. Thoracic paraspinal abscess primarily T3-T9 levels 2. Thoracic osteomyelitis primarily T5 level the significant bone destruction Interval History 05/25/16: T4-T5 laminectomy, evacuation epidural and paraspinous abscess 05/29/16: Drain discontinued. 06/01/16: Caro catheter placed. Patient states he is doing all right when seen this evening. 06/02/16: Patient doing well today. States that prior to Caro placement Interventional Radiology had to drain an abscess. Culture sent & pending. 06/05/16: Caro replaced by Interventional Radiology. 06/06/16: Some pain to left shoulder since he slept on it during the night, otherwise he is doing "pretty good." He did state that which ever side he slept on that shoulder was sore when he would wake up. 06/07/16: Still complains of bilateral shoulder pain that radiates between the left & right. He has no other complaints. 06/08/16: Patient doing well except for the shoulder pain that feels deep inside the joint, mostly on the left. States he was seen earlier and started on med to lower heart rate. 06/09/16: Still with shoulder pain, mostly to the left but some on the right. Otherwise he is doing good. 06/10/16: Continues with left shoulder pain. Otherwise doing well. 06/11/16: Continues with left shoulder pain. No new issues. 06/12/16: Patient still with complaint of left shoulder pain and states not able to take a deep breath due to the pain, otherwise no other complaints. 06/13/16: Patient doing well. He started Robaxin yesterday evening for the shoulder pain and it helped. The left shoulder started hurting this afternoon and Nursing had just given him the Robaxin when seen. (Darrion Garcia) Labs, Micro, & Vital Signs Constitutional Vital Signs Date Time Temp Pulse Resp B/P Pulse Ox O2 Delivery O2 Flow Rate FiO2 06/13/16 16:26 99.8 89 18 109/54 99 06/13/16 12:03 99.7 83 18 124/66 94 06/13/16 12:01 16 06/13/16 11:18 16 06/13/16 11:18 16 06/13/16 08:12 99.3 93 18 135/70 94 06/12/16 20:00 99.0 82 20 137/72 96 06/13/16 07:00 Intake Total 600 ml Output Total 900 ml Balance -300 ml (Darrion Garcia) Review of Systems/Exam ROS Neuro: Denies any headache, dizziness, numbness or tingling. Neck: Denies any neck pain. Respiratory: Denies any shortness of breath or productive cough. Cardiac: Denies any chest pain, palpitation or irregular heart rate. GI: Denies any abdominal pain, nausea, vomiting or bowel incontinence. : Denies any bladder incontinence. Back: Back doing better. Extremities: Left shoulder pain improved with the Robaxin. Exam Constitutional: Laying in bed watching TV, no apparent distress, affect flat. HEENT: Normocephalic, atraumatic. Neck: Soft, supple, no meningismus or nuchal rigidity. Resp: CTAB w/o W/R/R, equal excursion, non-laboured, on RA. CV: RRR w/o M/G/R, cap refill < 2 sec. GI: Abdomen soft, non-tender, positive bowel sounds. Back: Minimally TTP over surgical incision, dressing dry & intact, incision w/ intact steri-strips, w/o any evident drainage, erythema or streaking. Extremities: JENKINS, no clubbing, deformity or discolouration. Left shoulder mildly TTP. Neuro: AAOx3. Speech clear & appropriate. Follows commands. Motor strength equal throughout all major extensor & flexion muscle groups. Sensation grossly intact to light touch all extremities. (Darrion Garcia) Medications Current Medications Current Medications Medications (Trade) Dose Ordered Sig/Rony Route Start Time Stop Time Status Last Admin (Narcan Inj) 0.4 mg UNSCH PRN IV 05/24/16 04:30 (D50w (Vial) Inj) 25 ml UNSCH PRN IV PUSH 05/24/16 14:15 (Glucagon Inj) 1 mg UNSCH PRN OTHER 05/24/16 14:15 (Ventolin Hfa Inh) 2 puff Q4H PRN INH 05/24/16 16:00 06/03/16 08:24 (Colace) 100 mg BID PO 05/25/16 21:00 06/13/16 09:40 (Senokot) 17.2 mg DAILY PO 05/25/16 18:00 06/13/16 09:40 (NS Flush) 2 ml UNSCH PRN IVF 05/25/16 21:45 05/29/16 22:48 (NS Flush) 2 ml BID IVF 05/26/16 09:00 06/12/16 21:00 (Dilaudid Pf Inj) 1 mg Q4H PRN IV 05/30/16 14:41 06/13/16 11:25 (Dilaudid) 4 mg Q3H PRN PO 05/30/16 20:00 06/13/16 16:06 ([place] 10-325 Mg) 1 tab Q4H PRN PO 05/30/16 18:00 06/04/16 23:36 (Oramorph Sr) 15 mg Q12HR PO 05/31/16 21:15 06/13/16 09:40 (NS Flush) See Protocol DAILY IV FLUSH 06/02/16 09:00 06/13/16 09:40 (NS Flush) See Protocol UNSCH PRN IV FLUSH 06/01/16 10:15 (Heparin Central Flush) See Protocol DAILY IV FLUSH 06/02/16 09:00 06/13/16 09:40 (Heparin Central Flush) See Protocol UNSCH PRN IV FLUSH 06/01/16 10:15 (NS Flush) UNSCH PRN IV FLUSH 06/01/16 10:15 06/10/16 22:13 (Tylenol) 650 mg Q4H PRN PO 06/03/16 21:25 (NS Flush) DAILY IVF 06/06/16 09:00 (Heparin Central Flush) DAILY IV FLUSH 06/06/16 09:00 (NS Flush) UNSCH PRN IVF 06/05/16 11:45 06/07/16 05:29 Heparin Sodium (Porcine) UNSCH PRN IV FLUSH 06/05/16 11:45 (Rocephin Inj/NS Inj) 100 ml @ 200 mls/hr Q24H IV 06/06/16 13:00 07/19/16 23:00 06/13/16 12:55 (Tenormin) 25 mg DAILY PO 06/07/16 14:30 06/13/16 09:40 (Ferrous Sulfate) 325 mg DAILY PO 06/08/16 09:00 06/13/16 09:40 (Robaxin) 500 mg Q8HR PRN PO 06/12/16 22:00 06/13/16 16:38 (Darrion Garcia) Medical Decision Making MDM Remarks Impression: 1. Thoracic paraspinal abscess primarily T3-T9 levels 2. Thoracic osteomyelitis primarily T5 level with significant bone destruction 3. Stable neurologic function status post thoracic laminectomy, evacuation epidural and paraspinous abscess 4. Thoracic spine relatively stable on CT scan 5. Max temp past 24 hrs 100.4 degrees 6. Pain essentially controlled on current medication regimen 7. No growth in blood culture from 06/03 8. No growth in body fluid from right subclavian site on 06/01 9. Haemoglobin trending up today 10. Hyponatremia 11. Tachycardia 12. Bilateral shoulder pain A. Right shoulder pain resolved B. Left shoulder pain improved with Robaxin Neurologically intact (Darrion Garcia) Plan Plan Remarks Plan of care discussed with patient. PT & OT. Brace when OOB. Antibiotics per Infectious Disease. Will most likely need mid thoracic spine reconstruction & fusion surgery following completion of antibiotics. Continue present pain medication regimen. Neurologically intact. Left shoulder pain improved with introduction of Robaxin yesterday. Plan is to transfer patient to [facility] under the Hospitalist Service when a bed is available. He has been accepted by the Hospitalist Service. (Darrion Garcia) Attending Statement I have personally seen and examined the patient on the date of this note. Pertinent documentation and study results have been reviewed by the undersigned. I have personally developed the treatment plan and performed medical decision making. Agree with findings, exam, and treatment plan as noted above. Discontinued gabapentin-no improvement in left thoracic radiculitis. Patient reports some relief with Robaxin-will continue as needed. He is stable For Transfer to [facility] from neurosurgical standpoint. Discussed with patient and he is in agreement (Jeffry Pickard MD) Darrion Garcia June 13, 2016 17:14 Jeffry Pickard MD June 13, 2016 18:10
[2016-06-13 20:00] VITALS: BP 134/63; PULSE 103; RESP 18; TEMP 101.3; O2SAT 93
[2016-06-13 21:00] VITALS: TEMP 99.4
[2016-06-13] MEDS: ACETAMINOPHEN 325 MG TAB PO PRN (21:03)
[2016-06-14] MEDS: HYDROmorphone HCL 4 MG TAB PO PRN ×6 (02:02→23:35)
[2016-06-14] MEDS: METHOCARBAMOL 500 MG TAB PO PRN ×3 (02:02→23:34)
[2016-06-14 02:15] VITALS: BP 102/69; PULSE 112; RESP 30; TEMP 95.4; O2SAT 96
[2016-06-14 04:08] LABS: AUTOMATED NEUTROPHIL # 3.1 TH/MM3 (1.8-7.7); BASOPHIL % 0.6 % (0.0-2.0); EOSINOPHIL % 0.5 % (0.0-4.0); HEMATOCRIT 24.2 % (39.0-51.0); LYMPH % 30.6 % (9.0-44.0); LYMPHOCYTE # 1.4 TH/MM3 (1.0-4.8); MEAN CELL VOLUME 69.4 FL (80.0-100.0); MEAN CORPUSCULAR HEMOGLOBIN 22.5 PG (27.0-34.0); MEAN CORPUSCULAR HGB CONC 32.5 % (32.0-36.0); MONO % 1.5 % (0.0-8.0); NEUT % 66.8 % (16.0-70.0); PLATELET COUNT 117 TH/MM3 (150-450); RED BLOOD COUNT 3.48 MIL/MM3 (4.50-5.90); WHITE BLOOD COUNT 4.7 TH/MM3 (4.0-11.0)
[2016-06-14 04:10] LABS: HEMO FLAGS AUTO DIFF
[2016-06-14 04:21] LABS: ALKALINE PHOSPHATASE 67 U/L (45-117); ALT (GPT) 7 U/L (12-78); ANION GAP 9 MEQ/L (5-15); AST (GOT) 12 U/L (15-37); BICARBONATE 17.7 MEQ/L (21.0-32.0); BLOOD UREA NITROGEN 9 MG/DL (7-18); CHLORIDE 113 MEQ/L (98-107); GLOMERULAR FILTRATION RATE 129 ML/MIN (>89); POTASSIUM 3.2 MEQ/L (3.5-5.1); SODIUM (NA) 140 MEQ/L (136-145); TOTAL BILIRUBIN ADULT LESS THAN 0.1 MG/DL (0.2-1.0)
[2016-06-14 04:39] LABS: CALCIUM-PROTEIN CORRECTED 6.6 MG/DL (8.5-10.1)
[2016-06-14] MEDS: HYDROmorphone HCL PF 1 MG/ML VIAL IV PRN ×2 (04:52→10:17)
[2016-06-14 04:53] LABS: AMPHETAMINE, URINE NEG (NEG); BARBITURATES, URINE NEG (NEG); COCAINE, URINE NEG (NEG)
[2016-06-14 04:58] LABS: ACANTHOCYTES OCC (NORMAL); BANDS 31 % (0-6); EOSINOPHILS 1 % (0-4); METAMYELOCYTES 2 % (0-1); NEUTROPHIL # MANUAL DIFF 3.1 TH/MM3 (1.8-7.7); PLATELET ESTIMATE SMEAR LOW (NORMAL); PLATELET MORPHOLOGY NORMAL (NORMAL); POLYS (SEG NEUTROPHILS) 32 % (16-70); ROULEAUX PRESENT (NORMAL); SCAN/DIFF FINAL DIFF MANUAL; WBC DIFF SAMPLE 100
[2016-06-14 05:36] VITALS: BP 102/69; PULSE 112; RESP 24; TEMP 97.9; O2SAT 96
[2016-06-14] MEDS ORDERED: CALCIUM CARBONATE 1.25 GM (CA 500 MG) TAB PO ONE (06:15)
[2016-06-14] MEDS ORDERED: POTASSIUM CHLORIDE 25 MEQ EFFERVESCENT TAB PO ONE (06:15)
[2016-06-14] MEDS ORDERED: CALCIUM GLUCONATE INJ 2 GM in DEXTROSE 5% IN WATER 100ML INJ 100 ML IV ONE ×2 (06:30)
[2016-06-14 08:04] VITALS: BP 114/55; PULSE 94; RESP 18; TEMP 99.1; O2SAT 94
[2016-06-14] MEDS: SENNOSIDES 8.6 MG TAB PO SCH (08:36)
[2016-06-14] MEDS: ATENOLOL 25 MG TAB PO SCH (08:36)
[2016-06-14] MEDS: DOCUSATE SODIUM 100 MG CAP PO SCH ×2 (08:38→20:14)
[2016-06-14] MEDS: SODIUM CHLORIDE 0.9% FLUSH 10 ML FLUSH IVF SCH (08:38)
[2016-06-14] MEDS: SODIUM CHLORIDE 0.9% FLUSH 10 ML FLUSH IV FLUSH SCH (08:38)
[2016-06-14] MEDS: SODIUM CHLORIDE 0.9% FLUSH 5 ML FLUSH IVF SCH ×2 (08:38→20:24)
[2016-06-14] MEDS: FERROUS SULFATE 325 MG (65 MG ELEMENTAL IRON) TAB PO SCH (08:38)
[2016-06-14] MEDS: MORPHINE SULFATE 15 MG CONTROLLED RELEASE TAB PO SCH ×2 (08:39→20:15)
[2016-06-14] MEDS: cefTRIAXone INJ 2,000 MG in SODIUM CHLORIDE 0.9% INJ 100 ML IV SCH (11:34)
[2016-06-14 12:15] VITALS: BP 123/59; PULSE 74; RESP 18; TEMP 98.3; O2SAT 94
[2016-06-14 12:42] LABS: AUTOMATED NEUTROPHIL # 2.7 TH/MM3 (1.8-7.7); BASOPHIL % 0.4 % (0.0-2.0); EOSINOPHIL % 0.8 % (0.0-4.0); HEMATOCRIT 28.4 % (39.0-51.0); LYMPHOCYTE # 1.7 TH/MM3 (1.0-4.8); MEAN CORPUSCULAR HEMOGLOBIN 22.3 PG (27.0-34.0); MEAN CORPUSCULAR HGB CONC 32.4 % (32.0-36.0); MONO % 9.5 % (0.0-8.0); NEUT % 54.3 % (16.0-70.0); PLATELET COUNT 278 TH/MM3 (150-450); RED BLOOD COUNT 4.12 MIL/MM3 (4.50-5.90); RED CELL DISTRIBUTION WIDTH 19.3 % (11.6-17.2)
--- NOTE | 2016-06-14 12:42 | HHI.IDPN ---
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 Recently treated at [facility] for ?lung abscess and recurrent spinal abscess. Now with epidural abscess same area and possibly extending into lung. Notes reviewed Had one isolated temperature up to 101 last night C/O pain L shoulder which is unchanged No rash or itching No diarrhea Voiding okay No other new complaints Antibiotics Rocephin Lines Caro RIJ Past Medical History Reviewed Allergies: Coded Allergies: Aspirin (Verified Allergy, Severe, 09/23/13) PATIENT STATES HE HAD A HOLE IN HIS HEART WHEN HE WAS BORN AND HE WAS TOLD NOT TO TAKE ASPIRIN. SHELTER MAR STATES NO KNOWN ALLERGIES PATIENT DENIES ALLERGY TO ASPIRIN. 04/01/13 Objective . Vital Signs Date Time Temp Pulse Resp B/P Pulse Ox O2 Delivery O2 Flow Rate FiO2 06/14/16 12:15 98.3 74 18 123/59 94 06/14/16 08:04 99.1 94 18 114/55 94 06/14/16 05:46 17 06/14/16 05:36 97.9 112 24 102/69 96 06/14/16 02:15 95.4 112 30 102/69 96 06/13/16 22:02 18 06/13/16 22:02 18 06/13/16 21:00 99.4 06/13/16 20:00 101.3 103 18 134/63 93 06/13/16 16:26 99.8 89 18 109/54 99 06/13/16 06/13/16 06/14/16 15:00 23:00 07:00 Intake Total 120 ml Output Total 1000 ml 650 ml Balance -880 ml -650 ml Intake Oral 120 ml Output Urine Total 1000 ml 650 ml # Voids 2 # Bowel Movements 0 0 . Laboratory Tests Test 06/14/16 02:30 White Blood Count 4.7 TH/MM3 Red Blood Count 3.48 MIL/MM3 Hemoglobin 7.8 GM/DL Hematocrit 24.2 % Mean Corpuscular Volume 69.4 FL Mean Corpuscular Hemoglobin 22.5 PG Mean Corpuscular Hemoglobin 32.5 % Concent Red Cell Distribution Width 19.0 % Platelet Count 117 TH/MM3 Mean Platelet Volume 8.0 FL Neutrophils (%) (Auto) 66.8 % Lymphocytes (%) (Auto) 30.6 % Monocytes (%) (Auto) 1.5 % Eosinophils (%) (Auto) 0.5 % Basophils (%) (Auto) 0.6 % Neutrophils # (Auto) 3.1 TH/MM3 Lymphocytes # (Auto) 1.4 TH/MM3 Monocytes # (Auto) 0.1 TH/MM3 Eosinophils # (Auto) 0.0 TH/MM3 Basophils # (Auto) 0.0 TH/MM3 CBC Comment AUTO DIFF Differential Total Cells 100 Counted Neutrophils % (Manual) 32 % Band Neutrophils % 31 % Lymphocytes % 33 % Monocytes % 1 % Eosinophils % 1 % Neutrophils # (Manual) 3.1 TH/MM3 Metamyelocytes 2 % Differential Comment FINAL DIFF MANUAL Atypical Lymphocytes % Platelet Estimate LOW Platelet Morphology Comment NORMAL Acanthocytes OCC Rouleau PRESENT Erythrocyte Sedimentation Rate 61 mm/hr Laboratory Tests Test 06/14/16 04:00 Sodium Level 140 MEQ/L Potassium Level 3.2 MEQ/L Chloride Level 113 MEQ/L Carbon Dioxide Level 17.7 MEQ/L Anion Gap 9 MEQ/L Blood Urea Nitrogen 9 MG/DL Creatinine 0.67 MG/DL Estimat Glomerular Filtration 129 ML/MIN Rate Random Glucose 83 MG/DL Calcium Level 5.7 MG/DL Protein Corrected Calcium 6.6 MG/DL Total Bilirubin LESS THAN 0.1 MG/DL Direct Bilirubin 0.1 MG/DL Indirect Bilirubin 0.0 MG/DL Aspartate Amino Transf 12 U/L (AST/SGOT) Alanine Aminotransferase 7 U/L (ALT/SGPT) Alkaline Phosphatase 67 U/L C-Reactive Protein 2.72 MG/DL Total Protein 5.0 GM/DL Albumin 1.2 GM/DL Microbiology Date/Time Procedure Status Source Growth 06/14/16 11:59 Aerobic Blood Culture Received Blood Other Pending 06/14/16 11:59 Anaerobic Blood Culture Received Blood Other Pending 06/14/16 12:09 Aerobic Blood Culture Received Blood Peripheral Pending 06/14/16 12:09 Anaerobic Blood Culture Received Blood Peripheral Pending Imaging Catheter Placement X-Ray 06/05/16 0000 Signed Impressions: Service Date/Time: Sunday, June 05, 2016 10:50 - CONCLUSION: Uncomplicated Caro catheter placement as above. Chest wall cerclage stitch can be removed in approximately 10-14 days Valentin Narvaez MD Thoracic Spine CT 06/02/16 0000 Signed Impressions: Service Date/Time: Thursday, June 02, 2016 20:27 - CONCLUSION: 1. Extensive lytic destructive process along the lower endplate at T5, T6 and T7 vertebral bodies consistent with osteomyelitis. 2. There is osteomyelitis at T7 given the increased sclerosis. 3. Anterior paraspinal abscess containing air is again seen from lower T2 down to T9 level. 4. The right lower lobe mass/consolidation seen abutting the mediastinum medially is again noted. Roni Dominique MD Joint Aspiration/Injection 06/01/16 0000 Signed Impressions: Service Date/Time: May 16:59 - CONCLUSION: Uncomplicated aspiration as above. Valentin Narvaez MD Chest X-Ray 05/25/16 0000 Signed Impressions: Service Date/Time: May 22:46 - CONCLUSION: Mild vascular congestion and bibasilar atelectasis. Roshan Jain MD Thoracic Spine MRI 05/24/16 0000 Signed Impressions: Service Date/Time: Tuesday, May 24, 2016 10:40 - CONCLUSION: 1. There is extensive bilateral paraspinal abscess extending from approximately T3-T9. The abnormality appears to be centered at the T5 level where there is vertebral body height loss and fluid and enhancement in the adjacent disc spaces suggesting discitis osteomyelitis. A portion of the abnormal fluid collection extends posteriorly on the left at C5-C6. 2. The right lower lobe airspace consolidation has a connection with the adjacent right paraspinal abscess. 3. No spinal canal stenosis is identified. There is mild epidural enhancement in the anterior epidural space at T5-T7 but no epidural abscess is appreciated. Roshan Galvez MD Lumbar Spine MRI 05/24/16 0000 Signed Impressions: Service Date/Time: Tuesday, May 24, 2016 10:40 - CONCLUSION: Significant change from prior exam. No definite acute findings. See above discussion. Roshan Jain MD Chest CT 05/24/16 0000 Signed Impressions: Service Date/Time: Tuesday, May 24, 2016 10:21 - CONCLUSION: 1. Abnormal bilateral paraspinal fluid collection extending from approximately T3-T8. The appearance is highly suggestive of a paraspinal abscess. 2. Focal air space consolidation in the medial right lower lobe abutting the paraspinal process. This likely represents focal lung infection with possible central necrosis. 3. Abnormal appearance of the kidneys suggesting interstitial nephritis or ATN. 4. Partially visualized upper abdomen suggests retroperitoneal lymphadenopathy. Roshan Galvez MD Thoracic Spine MRI 05/24/16 0000 Signed Impressions: Service Date/Time: Tuesday, May 24, 2016 10:40 - CONCLUSION: 1. There is extensive bilateral paraspinal abscess extending from approximately T3-T9. The abnormality appears to be centered at the T5 level where there is vertebral body height loss and fluid and enhancement in the adjacent disc spaces suggesting discitis osteomyelitis. A portion of the abnormal fluid collection extends posteriorly on the left at C5-C6. 2. The right lower lobe airspace consolidation has a connection with the adjacent right paraspinal abscess. 3. No spinal canal stenosis is identified. There is mild epidural enhancement in the anterior epidural space at T5-T7 but no epidural abscess is appreciated. Roshan Galvez MD Lumbar Spine MRI 05/24/16 0000 Signed Impressions: Service Date/Time: Tuesday, May 24, 2016 10:40 - CONCLUSION: Significant change from prior exam. No definite acute findings. See above discussion. Roshan Jain MD Chest CT 05/24/16 Signed Impressions: Service Date/Time: Tuesday, May 24, 2016 10:21 - CONCLUSION: 1. Abnormal bilateral paraspinal fluid collection extending from approximately T3-T8. The appearance is highly suggestive of a paraspinal abscess. 2. Focal air space consolidation in the medial right lower lobe abutting the paraspinal process. This likely represents focal lung infection with possible central necrosis. 3. Abnormal appearance of the kidneys suggesting interstitial nephritis or ATN. 4. Partially visualized upper abdomen suggests retroperitoneal lymphadenopathy. Roshan Galvez MD Physical Exam GENERAL: awake and alert, NAD SKIN: Warm and dry. No generalized rash HEENT: [place] conjunctivae, no petechia or hemorrhage. No scleral icterus. . Moist oral mucosa. NECK: Supple, nontender. Caro site with no evidence of infection. Previous swelling over RSC joint till present, but no redness or tenderness. CARDIOVASCULAR: Regular rate and rhythm without murmurs, gallops, or rubs. No murmur. RESPIRATORY: Clear to auscultation. Breath sounds equal bilaterally. He has few scattered rhonchi. Decreased at the bases. GASTROINTESTINAL: Abdomen soft, not tender, mildly distended. No guarding or rebound. Bowel sounds are present and normoactive. No organomegaly. MUSCULOSKELETAL: Extremities without clubbing, cyanosis, or edema. No joint tenderness, effusion. No calf tenderness. L shoulder, no swelling or redness, good ROM, some pain with passive range of motion NEUROLOGICAL: Non-focal PSYCH: Normal affect, calm and cooperative. 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 S/P OR - per NS, abscess did not communicate in thoracic cavity Pneumonia, better Previous Rx for osteo thoracic, removal of thoracic hardware last 2013, with MSSA Previous Rx MSSA osteo of spine 2011 Known IVDU Fluid collection over RSC joint, aspirated, C/S negative, looks better Neutropenia, ?meds, ?ancef, ?rifampin - better Intermittent fevers Left shoulder pain Repeat ESR about the same, CRP markedly improved RECOMMENDATION Continue Rocephin Will need 8 weeks IV Abx from date of surgery - anticipated end date July 19 - then chronic oral suppression with Keflex 500 BID or Dicloxacillin 500 BID Labs weekly while on IV Abx: CBC, creat, LFT - to be ordered by [facility], when he gets transferred to [place] Monitor progress Xray L shoulder Repeat BC ordered one from line, and one periphery DIC screen Explained plan to the patient Genie Wadsworth MD June 14, 2016 12:42
[2016-06-14 12:43] LABS: HEMO FLAGS AUTO DIFF
--- NOTE | 2016-06-14 12:52 | HHI.PR ---
Subjective Remarks Was reported to me by the nurse patient was trying to crush his pain medication and inject it in his line with milk Objective Vitals Vital Signs Date Time Temp Pulse Resp B/P Pulse Ox O2 Delivery O2 Flow Rate FiO2 06/14/16 12:15 98.3 74 18 123/59 94 06/14/16 08:04 99.1 94 18 114/55 94 06/14/16 05:46 17 06/14/16 05:36 97.9 112 24 102/69 96 06/14/16 02:15 95.4 112 30 102/69 96 06/13/16 22:02 18 06/13/16 22:02 18 06/13/16 21:00 99.4 06/13/16 20:00 101.3 103 18 134/63 93 06/13/16 16:26 99.8 89 18 109/54 99 I/O 06/13/16 06/13/16 06/13/16 06/14/16 06/14/16 06/14/16 07:00 15:00 23:00 07:00 15:00 23:00 Intake Total 120 ml Output Total 500 ml 1000 ml 650 ml Balance -500 ml -880 ml -650 ml Intake Oral 120 ml Output Urine Total 500 ml 1000 ml 650 ml # Voids 2 # Bowel Movements 0 0 Result Diagram: 06/14/16 1159 06/14/16 0400 Objective Remarks GENERAL: This is a well-nourished, well-developed patient, in no apparent distress. CARDIOVASCULAR: Regular rate and rhythm without murmurs, gallops, or rubs. RESPIRATORY: Clear to auscultation. Breath sounds equal bilaterally. No wheezes , rales, or rhonchi. GASTROINTESTINAL: Abdomen soft, non-tender, nondistended. Normal active bowel sounds MUSCULOSKELETAL: Extremities without clubbing, cyanosis, or edema. NEURO: Alert & Oriented x4 to person, place, time, situation. Moves all ext x4 Procedures T4-5 decompressive laminectomy, evacuation epidural abscess and granulation tissue Evacuation thoracic paraspinous abscess A/P Assessment and Plan 06/14: Reported to me patient was trying to crush his pain medication and injected in his line with milk, ID and surgery notified 41-year-old male with: Multiple infections/ Sepsis Thoracic spine MRI shows: There is extensive bilateral paraspinal abscess extending from approximately T3-T9; The abnormality appears to be centered at the T5 level where there is vertebral body height loss and fluid and enhancement in the adjacent disc spaces suggesting discitis osteomyelitis; A portion of the abnormal fluid collection extends posteriorly on the left at C5- C6; The right lower lobe airspace consolidation has a connection with the adjacent right paraspinal abscess. Lumbar spine MRI: Significant change from prior exam; No definite acute findings. Chest CT: Abnormal bilateral paraspinal fluid collection extending from approximately T3-T8; The appearance is highly suggestive of a paraspinal abscess; Focal air space consolidation in the medial right lower lobe abutting the paraspinal process; This likely represents focal lung infection with possible central necrosis. S/p T4-5 decompressive laminectomy, evacuation epidural abscess and granulation tissue; Evacuation thoracic paraspinous abscess 05/26. 3 out of 4 blood cultures grew MSSA. Repeat blood cultures are negative. Fluid culture also grew MSSA. - wound care, weightbearing and anticoagulation per neurosurgery. - antibiotics per ID. currently on Ancef and rifampin. Will need 6-8 weeks of treatment followed by oral suppression per ID recommendations. - pain control as needed with a bowel regimen. - physical therapy. - incentive spirometry. - Breathing treatments as needed. Anemia Likely s/t sepsis. Postop. - follow CBC. - treat underlying infections. Hyperglycemia Blood sugar was elevated on admission. Likely a stress reaction. A1c 5.3%. - follow BMP as needed. IV drug abuse: Cautious with Narcotics with this patient. I discussed with the patient to try to wean off pain medications Last used 6 months ago. - Cessation instruction. Nicotine dependence The patient smokes 5 cigarettes daily. - Cessation instruction given. PPx: Per neurosurgery. Mehreen Murrell MD June 14, 2016 12:52
[2016-06-14 13:47] LABS: BANDS 9 % (0-6); BASOPHILS 1 % (0-2); MYELOCYTES 1 % (0-0); NEUTROPHIL # MANUAL DIFF 2.7 TH/MM3 (1.8-7.7); POLYS (SEG NEUTROPHILS) 44 % (16-70); WBC DIFF SAMPLE 100
[2016-06-14 13:48] LABS: PLATELET ESTIMATE SMEAR NORMAL (NORMAL); PLATELET MORPHOLOGY NORMAL (NORMAL); SCAN/DIFF FINAL DIFF MANUAL
--- NOTE | 2016-06-14 13:53 | HHI.NSPN ---
(RadhaDarrion) Note Status Status: Progress Note (Darrion GarciaXu LOPES) Interval History Diagnosis 1. Thoracic paraspinal abscess primarily T3-T9 levels 2. Thoracic osteomyelitis primarily T5 level the significant bone destruction Interval History 05/25/16: T4-T5 laminectomy, evacuation epidural and paraspinous abscess 05/29/16: Drain discontinued. 06/01/16: Caro catheter placed. Patient states he is doing all right when seen this evening. 06/02/16: Patient doing well today. States that prior to Caro placement Interventional Radiology had to drain an abscess. Culture sent & pending. 06/05/16: Caro replaced by Interventional Radiology. 06/06/16: Some pain to left shoulder since he slept on it during the night, otherwise he is doing "pretty good." He did state that which ever side he slept on that shoulder was sore when he would wake up. 06/07/16: Still complains of bilateral shoulder pain that radiates between the left & right. He has no other complaints. 06/08/16: Patient doing well except for the shoulder pain that feels deep inside the joint, mostly on the left. States he was seen earlier and started on med to lower heart rate. 06/09/16: Still with shoulder pain, mostly to the left but some on the right. Otherwise he is doing good. 06/10/16: Continues with left shoulder pain. Otherwise doing well. 06/11/16: Continues with left shoulder pain. No new issues. 06/12/16: Patient still with complaint of left shoulder pain and states not able to take a deep breath due to the pain, otherwise no other complaints. 06/13/16: Patient doing well. He started Robaxin yesterday evening for the shoulder pain and it helped. The left shoulder started hurting this afternoon and Nursing had just given him the Robaxin when seen. 06/14/16: Patient doing well overall. Today he complains of back pain that started yesterday and he continues to have the left shoulder pain. When seen he was wearing the TLSO brace in bed because it helped with the pain. The patient reports that ID is to order a shoulder XR. (Darrion Garcia) Labs, Micro, & Vital Signs Results Allergies Coded Allergies Type Severity Reaction Last Updated Verified Aspirin Allergy Severe 09/23/13 Yes ///// 06:00 18:00 06:00 18:00 06:00 18:00 Intake Total 1660 ml 600 ml 120 ml Output Total 1000 ml 200 ml 200 ml 1300 ml 850 ml Balance 660 ml 400 ml -200 ml -1180 ml -850 ml Intake Oral 1660 ml 600 ml 120 ml Output Urine Total 1000 ml 200 ml 200 ml 1300 ml 850 ml # Voids 2 # Bowel Movements 1 0 0 Laboratory Tests Test 06/14/16 06/14/16 06/14/16 06/14/16 02:30 04:00 04:35 11:59 White Blood Count 4.7 TH/MM3 5.0 TH/MM3 Red Blood Count 3.48 MIL/MM3 4.12 MIL/MM3 Hemoglobin 7.8 GM/DL 9.2 GM/DL Hematocrit 24.2 % 28.4 % Mean Corpuscular Volume 69.4 FL 69.0 FL Mean Corpuscular Hemoglobin 22.5 PG 22.3 PG Mean Corpuscular Hemoglobin 32.5 % 32.4 % Concent Red Cell Distribution Width 19.0 % 19.3 % Platelet Count 117 TH/MM3 278 TH/MM3 Mean Platelet Volume 8.0 FL 7.6 FL Neutrophils (%) (Auto) 66.8 % 54.3 % Lymphocytes (%) (Auto) 30.6 % 35.0 % Monocytes (%) (Auto) 1.5 % 9.5 % Eosinophils (%) (Auto) 0.5 % 0.8 % Basophils (%) (Auto) 0.6 % 0.4 % Neutrophils # (Auto) 3.1 TH/MM3 2.7 TH/MM3 Lymphocytes # (Auto) 1.4 TH/MM3 1.7 TH/MM3 Monocytes # (Auto) 0.1 TH/MM3 0.5 TH/MM3 Eosinophils # (Auto) 0.0 TH/MM3 0.0 TH/MM3 Basophils # (Auto) 0.0 TH/MM3 0.0 TH/MM3 CBC Comment AUTO DIFF AUTO DIFF Differential Total Cells 100 Counted Neutrophils % (Manual) 32 % Band Neutrophils % 31 % Lymphocytes % 33 % Monocytes % 1 % Eosinophils % 1 % Neutrophils # (Manual) 3.1 TH/MM3 Metamyelocytes 2 % Differential Comment FINAL DIFF MANUAL Atypical Lymphocytes % Platelet Estimate LOW Platelet Morphology Comment NORMAL Acanthocytes OCC Rouleau PRESENT Erythrocyte Sedimentation Rate 61 mm/hr Sodium Level 140 MEQ/L Potassium Level 3.2 MEQ/L Chloride Level 113 MEQ/L Carbon Dioxide Level 17.7 MEQ/L Anion Gap 9 MEQ/L Blood Urea Nitrogen 9 MG/DL Creatinine 0.67 MG/DL Estimat Glomerular Filtration 129 ML/MIN Rate Random Glucose 83 MG/DL Calcium Level 5.7 MG/DL Protein Corrected Calcium 6.6 MG/DL Total Bilirubin LESS THAN 0.1 MG/DL Direct Bilirubin 0.1 MG/DL Indirect Bilirubin 0.0 MG/DL Aspartate Amino Transf 12 U/L (AST/SGOT) Alanine Aminotransferase 7 U/L (ALT/SGPT) Alkaline Phosphatase 67 U/L C-Reactive Protein 2.72 MG/DL Total Protein 5.0 GM/DL Albumin 1.2 GM/DL Urine Opiates Screen POS Urine Barbiturates Screen NEG Urine Amphetamines Screen NEG Urine Benzodiazepines Screen NEG Urine Cocaine Screen NEG Urine Cannabinoids Screen NEG Fibrinogen 424 mg/dL D-Dimer Quantitative (PE/DVT) 4.38 MG/L FEU Constitutional Vital Signs Date Time Temp Pulse Resp B/P Pulse Ox O2 Delivery O2 Flow Rate FiO2 06/14/16 12:15 98.3 74 18 123/59 94 06/14/16 08:04 99.1 94 18 114/55 94 06/14/16 05:46 17 06/14/16 05:36 97.9 112 24 102/69 96 06/14/16 02:15 95.4 112 30 102/69 96 06/13/16 22:02 18 06/13/16 22:02 18 06/13/16 21:00 99.4 06/13/16 20:00 101.3 103 18 134/63 93 06/13/16 16:26 99.8 89 18 109/54 99 06/14/16 07:00 Intake Total 120 ml Output Total 1650 ml Balance -1530 ml (Darrion Garcia) Review of Systems/Exam ROS Neuro: Denies any headache, dizziness, numbness or tingling. Neck: Denies any neck pain. Respiratory: Denies any shortness of breath or productive cough. Cardiac: Denies any chest pain, palpitation or irregular heart rate. GI: Denies any abdominal pain, nausea, vomiting or bowel incontinence. : Denies any bladder incontinence. Back: Back pain that started yesterday, feels like it is moving around. Extremities: Left shoulder pain still. Exam Constitutional: Laying in bed watching TV, no apparent distress, affect essentially normal, in TLSO brace. HEENT: Normocephalic, atraumatic. Neck: Soft, supple, no meningismus or nuchal rigidity. Resp: CTAB w/o W/R/R, equal excursion, non-laboured, on RA. CV: RRR w/o M/G/R, cap refill < 2 sec. GI: Abdomen soft, non-tender, positive bowel sounds. Back: In TLSO brace, upper thoracic spine mildly TTP. Extremities: JENKINS, no clubbing, deformity or discolouration. Left shoulder mildly TTP. Neuro: AAOx3. Speech clear & appropriate. Follows commands. Motor strength equal throughout all major extensor & flexion muscle groups. Sensation grossly intact to light touch all extremities. (Darrion Garcia) Medications Current Medications Current Medications Medications (Trade) Dose Ordered Sig/Rony Route Start Time Stop Time Status Last Admin (Narcan Inj) 0.4 mg UNSCH PRN IV 05/24/16 04:30 (D50w (Vial) Inj) 25 ml UNSCH PRN IV PUSH 05/24/16 14:15 (Glucagon Inj) 1 mg UNSCH PRN OTHER 05/24/16 14:15 (Ventolin Hfa Inh) 2 puff Q4H PRN INH 05/24/16 16:00 06/03/16 08:24 (Colace) 100 mg BID PO 05/25/16 21:00 06/14/16 08:38 (Senokot) 17.2 mg DAILY PO 05/25/16 18:00 06/14/16 08:36 (NS Flush) 2 ml UNSCH PRN IVF 05/25/16 21:45 05/29/16 22:48 (NS Flush) 2 ml BID IVF 05/26/16 09:00 06/12/16 21:00 (Dilaudid Pf Inj) 1 mg Q4H PRN IV 05/30/16 14:41 06/14/16 10:17 (Dilaudid) 4 mg Q3H PRN PO 05/30/16 20:00 06/14/16 12:48 ([place]o 10-325 Mg) 1 tab Q4H PRN PO 05/30/16 18:00 06/04/16 23:36 (Oramorph Sr) 15 mg Q12HR PO 05/31/16 21:15 06/14/16 08:39 (NS Flush) See Protocol DAILY IV FLUSH 06/02/16 09:00 06/14/16 08:38 (NS Flush) See Protocol UNSCH PRN IV FLUSH 06/01/16 10:15 (Heparin Central Flush) See Protocol DAILY IV FLUSH 06/02/16 09:00 06/14/16 08:37 (Heparin Central Flush) See Protocol UNSCH PRN IV FLUSH 06/01/16 10:15 (NS Flush) UNSCH PRN IV FLUSH 06/01/16 10:15 06/14/16 04:52 (Tylenol) 650 mg Q4H PRN PO 06/03/16 21:25 06/13/16 21:03 (NS Flush) DAILY IVF 06/06/16 09:00 (Heparin Central Flush) DAILY IV FLUSH 06/06/16 09:00 (NS Flush) UNSCH PRN IVF 06/05/16 11:45 06/07/16 05:29 Heparin Sodium (Porcine) UNSCH PRN IV FLUSH 06/05/16 11:45 (Rocephin Inj/NS Inj) 100 ml @ 200 mls/hr Q24H IV 06/06/16 13:00 07/19/16 23:00 06/14/16 11:34 (Tenormin) 25 mg DAILY PO 06/07/16 14:30 06/14/16 08:36 (Ferrous Sulfate) 325 mg DAILY PO 06/08/16 09:00 06/14/16 08:38 (Robaxin) 500 mg Q8HR PRN PO 06/12/16 22:00 06/14/16 13:25 (Darrion Garcia) Medical Decision Making MDM Remarks Impression: 1. Thoracic paraspinal abscess primarily T3-T9 levels 2. Thoracic osteomyelitis primarily T5 level with significant bone destruction 3. Stable neurologic function status post thoracic laminectomy, evacuation epidural and paraspinous abscess 4. Thoracic spine relatively stable on CT scan 5. Max temp past 24 hrs 101.3 degrees 6. Pain essentially controlled on current medication regimen 7. No growth in blood culture from 06/03 8. No growth in body fluid from right subclavian site on 06/01 9. Haemoglobin, improved A. Most likely r/t chronic disease 10. Hyponatremia, resolved 11. Tachycardia 12. Bilateral shoulder pain A. Right shoulder pain resolved B. Left shoulder pain improved with Robaxin 13. Hypokalemia, treated Neurologically intact (Darrion Garcia) Plan Plan Remarks Plan of care discussed with patient. PT & OT. Brace when OOB. Antibiotics per Infectious Disease, ending 6/7 per ID note today. Will most likely need mid thoracic spine reconstruction & fusion surgery following completion of antibiotics. Continue present pain medication regimen. Neurologically intact. Left shoulder pain improved after introduction of Robaxin 5/2. Plan is to transfer patient to [place] under the Hospitalist Service when a bed is available. He has been accepted by the Hospitalist Service. Will d/c IV & PO hydromorphone (Darrion Garcia) Attending Statement I have personally seen and examined the patient on the date of this note. Pertinent documentation and study results have been reviewed by the undersigned. I have personally developed the treatment plan and performed medical decision making. Agree with findings, exam, and treatment plan as noted above. Patient reportedly crushing up his pills and injecting them intravenous last evening-reported by nursing staff approximately 3 AM. Discontinue all intravenous pain medications. He can be gradually weaned off of oral hydromorphone. Continuing MS Contin at present. He is stable for transfer to [place] facility for further antibiotic coverage. (Jeffry Pickard MD) Darrion Garcia June 14, 2016 13:53 Jeffry Pickard MD June 14, 2016 19:43
[2016-06-14] MEDS: ACETAMINOPHEN/HYDROcodone 325 MG/10 MG TAB PO PRN (15:03)
[2016-06-14] MEDS ORDERED: INSULIN ASPART SUPPLEMENTAL SCALE ONE (15:07)
[2016-06-14 16:08] VITALS: BP 123/70; PULSE 89; RESP 18; TEMP 98.9; O2SAT 94
[2016-06-14 20:00] VITALS: BP 110/75; PULSE 96; RESP 22; TEMP 100.5; O2SAT 100
[2016-06-15] MEDS: HYDROmorphone HCL 4 MG TAB PO PRN ×7 (03:04→22:30)
[2016-06-15] MEDS: MORPHINE SULFATE 15 MG CONTROLLED RELEASE TAB PO SCH ×3 (07:54→22:30)
[2016-06-15] MEDS: SODIUM CHLORIDE 0.9% FLUSH 10 ML FLUSH IV FLUSH SCH (07:55)
[2016-06-15] MEDS: DOCUSATE SODIUM 100 MG CAP PO SCH ×2 (07:55→22:29)
[2016-06-15] MEDS: FERROUS SULFATE 325 MG (65 MG ELEMENTAL IRON) TAB PO SCH (07:55)
[2016-06-15] MEDS: SODIUM CHLORIDE 0.9% FLUSH 5 ML FLUSH IVF SCH ×2 (07:55→21:00)
[2016-06-15] MEDS: SODIUM CHLORIDE 0.9% FLUSH 10 ML FLUSH IVF SCH (07:55)
[2016-06-15] MEDS: ATENOLOL 25 MG TAB PO SCH (07:56)
[2016-06-15] MEDS: SENNOSIDES 8.6 MG TAB PO SCH (07:56)
[2016-06-15 08:12] VITALS: BP 115/58; PULSE 85; RESP 20; TEMP 97.7; O2SAT 95
[2016-06-15] MEDS: METHOCARBAMOL 500 MG TAB PO PRN ×2 (08:21→22:45)
[2016-06-15 12:11] VITALS: BP 107/61; PULSE 69; RESP 20; TEMP 97.4; O2SAT 100
[2016-06-15] MEDS: cefTRIAXone INJ 2,000 MG in SODIUM CHLORIDE 0.9% INJ 100 ML IV SCH (12:17)
--- NOTE | 2016-06-15 12:23 | HHI.NSPN ---
(RadhaDarrion) Note Status Status: Progress Note (Darrion GarciaXu LOPES) Interval History Diagnosis 1. Thoracic paraspinal abscess primarily T3-T9 levels 2. Thoracic osteomyelitis primarily T5 level the significant bone destruction Interval History 05/25/16: T4-T5 laminectomy, evacuation epidural and paraspinous abscess 05/29/16: Drain discontinued. 06/01/16: Caro catheter placed. Patient states he is doing all right when seen this evening. 06/02/16: Patient doing well today. States that prior to Caro placement Interventional Radiology had to drain an abscess. Culture sent & pending. 06/05/16: Caro replaced by Interventional Radiology. 06/06/16: Some pain to left shoulder since he slept on it during the night, otherwise he is doing "pretty good." He did state that which ever side he slept on that shoulder was sore when he would wake up. 06/07/16: Still complains of bilateral shoulder pain that radiates between the left & right. He has no other complaints. 06/08/16: Patient doing well except for the shoulder pain that feels deep inside the joint, mostly on the left. States he was seen earlier and started on med to lower heart rate. 06/09/16: Still with shoulder pain, mostly to the left but some on the right. Otherwise he is doing good. 06/10/16: Continues with left shoulder pain. Otherwise doing well. 06/11/16: Continues with left shoulder pain. No new issues. 06/12/16: Patient still with complaint of left shoulder pain and states not able to take a deep breath due to the pain, otherwise no other complaints. 06/13/16: Patient doing well. He started Robaxin yesterday evening for the shoulder pain and it helped. The left shoulder started hurting this afternoon and Nursing had just given him the Robaxin when seen. 06/14/16: Patient doing well overall. Today he complains of back pain that started yesterday and he continues to have the left shoulder pain. When seen he was wearing the TLSO brace in bed because it helped with the pain. The patient reports that ID is to order a shoulder XR. 06/15/16: Patient states he is not doing so good today. He complains of pain to the back and the left shoulder. He states the thoracic spine feels like it is moving around. The pain in the shoulder is deep and when palpated the shoulder is nontender. The patient did have his hydromorphone discontinued yesterday. ( Darrion Garcia) Labs, Micro, & Vital Signs Constitutional Vital Signs Date Time Temp Pulse Resp B/P Pulse Ox O2 Delivery O2 Flow Rate FiO2 06/15/16 12:11 97.4 69 20 107/61 100 06/15/16 08:12 97.7 85 20 115/58 95 06/14/16 20:00 100.5 96 22 110/75 100 06/14/16 16:08 98.9 89 18 123/70 94 06/15/16 07:00 Intake Total 720 ml Output Total 950 ml Balance -230 ml (Darrion Garcia) Review of Systems/Exam ROS Neuro: Denies any headache, dizziness, numbness or tingling. Neck: Denies any neck pain. Respiratory: Denies any shortness of breath or productive cough. Cardiac: Denies any chest pain, palpitation or irregular heart rate. GI: Denies any abdominal pain, nausea, vomiting or bowel incontinence. : Denies any bladder incontinence. Back: Continues with back pain and states it feels like his spine is moving. Extremities: Continues with left shoulder pain that is inside. Exam Constitutional: Asleep but awakens to verbal stimuli, appears mildly distress, flat affect. HEENT: Normocephalic, atraumatic. Neck: Soft, supple, no meningismus or nuchal rigidity. Resp: CTAB w/o W/R/R, equal excursion, non-laboured, on RA. CV: RRR w/o M/G/R, cap refill < 2 sec. GI: Abdomen soft, non-tender, positive bowel sounds. Back: Upper thoracic spine mildly TTP, dressing intact, surgical site well- approximated w/steri-strips, no evident drainage, erythema or streaking. Extremities: JENKINS, no clubbing, deformity or discolouration. Left shoulder NTTP. Neuro: AAOx3. Speech clear & appropriate. Follows commands. Motor strength 5/5 to RUE & BLE major extensor & flexion muscle groups but 4/5 LUE. Sensation grossly intact to light touch all extremities. (Darrion Garcia) Medications Current Medications Current Medications Medications (Trade) Dose Ordered Sig/Rony Route Start Time Stop Time Status Last Admin (Narcan Inj) 0.4 mg UNSCH PRN IV 05/24/16 04:30 (D50w (Vial) Inj) 25 ml UNSCH PRN IV PUSH 05/24/16 14:15 (Glucagon Inj) 1 mg UNSCH PRN OTHER 05/24/16 14:15 (Ventolin Hfa Inh) 2 puff Q4H PRN INH 05/24/16 16:00 06/03/16 08:24 (Colace) 100 mg BID PO 05/25/16 21:00 06/15/16 07:55 (Senokot) 17.2 mg DAILY PO 05/25/16 18:00 06/15/16 07:56 (NS Flush) 2 ml UNSCH PRN IVF 05/25/16 21:45 05/29/16 22:48 (NS Flush) 2 ml BID IVF 05/26/16 09:00 06/15/16 07:55 (Seagraves 10-325 Mg) 1 tab Q4H PRN PO 05/30/16 18:00 06/14/16 15:03 (Oramorph Sr) 15 mg Q12HR PO 05/31/16 21:15 06/15/16 08:06 (NS Flush) See Protocol DAILY IV FLUSH 06/02/16 09:00 06/15/16 07:55 (NS Flush) See Protocol UNSCH PRN IV FLUSH 06/01/16 10:15 (Heparin Central Flush) See Protocol DAILY IV FLUSH 06/02/16 09:00 06/15/16 07:54 (Heparin Central Flush) See Protocol UNSCH PRN IV FLUSH 06/01/16 10:15 (NS Flush) UNSCH PRN IV FLUSH 06/01/16 10:15 06/14/16 04:52 (Tylenol) 650 mg Q4H PRN PO 06/03/16 21:25 06/13/16 21:03 (NS Flush) DAILY IVF 06/06/16 09:00 (Heparin Central Flush) DAILY IV FLUSH 06/06/16 09:00 (NS Flush) UNSCH PRN IVF 06/05/16 11:45 06/07/16 05:29 Heparin Sodium (Porcine) UNSCH PRN IV FLUSH 06/05/16 11:45 (Rocephin Inj/NS Inj) 100 ml @ 200 mls/hr Q24H IV 06/06/16 13:00 07/19/16 23:00 06/14/16 11:34 (Tenormin) 25 mg DAILY PO 06/07/16 14:30 06/15/16 07:56 (Ferrous Sulfate) 325 mg DAILY PO 06/08/16 09:00 06/15/16 07:55 (Robaxin) 500 mg Q8HR PRN PO 06/12/16 22:00 06/15/16 08:21 (Dilaudid) 4 mg Q3H PRN PO 06/14/16 19:30 06/15/16 09:09 (Darrion Garcia) Medical Decision Making MDM Remarks Impression: 1. Thoracic paraspinal abscess primarily T3-T9 levels 2. Thoracic osteomyelitis primarily T5 level with significant bone destruction 3. Stable neurologic function status post thoracic laminectomy, evacuation epidural and paraspinous abscess 4. Thoracic spine relatively stable on CT scan 5. Max temp past 24 hrs 101.3 degrees 6. Pain essentially controlled on current medication regimen 7. No growth in blood culture from 06/03 8. No growth in body fluid from right subclavian site on 06/01 9. Haemoglobin, improved A. Most likely r/t chronic disease 10. Hyponatremia, resolved 11. Tachycardia 12. Bilateral shoulder pain A. Right shoulder pain resolved B. Left shoulder pain improved with Robaxin 13. Hypokalemia, treated Patient remains neurologically intact No growth from blood cultures from (Darrion Garcia) Plan Plan Remarks Plan of care discussed with patient. PT & OT. Brace when OOB. Antibiotics per Infectious Disease, ending 6/7 per ID note today. Will most likely need mid thoracic spine reconstruction & fusion surgery following completion of antibiotics. Continue present pain medication regimen. Neurologically intact. Left shoulder pain improved after introduction of Robaxin 5/2. Plan is to transfer patient to [place] under the Hospitalist Service when a bed is available. He has been accepted by the Hospitalist Service. (Darrion Garcia) Attending Statement Patient discussed with Darrion LOPES who has seen the patient today. Mr. Rose is assisting on resuming intravenous Dilaudid. At this point I really do not want to replace his intravenous pain medications. Nursing report indicates patient was mixing his pain pills and mixing them with milk for injection. He is stable for discharge to [place] facility for continuation of his IV antibiotics. (Jeffry Pickard MD) Darrion Garcia June 15, 2016 12:23 Jeffry Pickard MD June 15, 2016 19:16
--- NOTE | 2016-06-15 13:19 | HHI.IDPN ---
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 Recently treated at [facility] for ?lung abscess and recurrent spinal abscess. Now with epidural abscess same area and possibly extending into lung. Notes reviewed Informed by Dr Murrell about patient caught self injecting meds Had low grade temps overnight Repeat BC pending Antibiotics Rocephin Lines [place] CHEW Past Medical History Reviewed Allergies: Coded Allergies: Aspirin (Verified Allergy, Severe, 09/23/13) PATIENT STATES HE HAD A HOLE IN HIS HEART WHEN HE WAS BORN AND HE WAS TOLD NOT TO TAKE ASPIRIN. SKILLED NURSING MAR STATES NO KNOWN ALLERGIES PATIENT DENIES ALLERGY TO ASPIRIN. 04/01/13 Objective . Vital Signs Date Time Temp Pulse Resp B/P Pulse Ox O2 Delivery O2 Flow Rate FiO2 06/15/16 12:11 97.4 69 20 107/61 100 06/15/16 08:12 97.7 85 20 115/58 95 06/14/16 20:00 100.5 96 22 110/75 100 06/14/16 16:08 98.9 89 18 123/70 94 06/14/16 06/14/16 06/15/16 15:00 23:00 07:00 Intake Total 720 ml Output Total 950 ml Balance -230 ml Intake Oral 720 ml Output Urine Total 950 ml # Voids 2 # Bowel Movements 0 . Laboratory Tests Test 06/14/16 06/14/16 02:30 11:59 White Blood Count 4.7 TH/MM3 5.0 TH/MM3 Red Blood Count 3.48 MIL/MM3 4.12 MIL/MM3 Hemoglobin 7.8 GM/DL 9.2 GM/DL Hematocrit 24.2 % 28.4 % Mean Corpuscular Volume 69.4 FL 69.0 FL Mean Corpuscular Hemoglobin 22.5 PG 22.3 PG Mean Corpuscular Hemoglobin 32.5 % 32.4 % Concent Red Cell Distribution Width 19.0 % 19.3 % Platelet Count 117 TH/MM3 278 TH/MM3 Mean Platelet Volume 8.0 FL 7.6 FL Neutrophils (%) (Auto) 66.8 % 54.3 % Lymphocytes (%) (Auto) 30.6 % 35.0 % Monocytes (%) (Auto) 1.5 % 9.5 % Eosinophils (%) (Auto) 0.5 % 0.8 % Basophils (%) (Auto) 0.6 % 0.4 % Neutrophils # (Auto) 3.1 TH/MM3 2.7 TH/MM3 Lymphocytes # (Auto) 1.4 TH/MM3 1.7 TH/MM3 Monocytes # (Auto) 0.1 TH/MM3 0.5 TH/MM3 Eosinophils # (Auto) 0.0 TH/MM3 0.0 TH/MM3 Basophils # (Auto) 0.0 TH/MM3 0.0 TH/MM3 CBC Comment AUTO DIFF AUTO DIFF Differential Total Cells 100 100 Counted Neutrophils % (Manual) 32 % 44 % Band Neutrophils % 31 % 9 % Lymphocytes % 33 % 39 % Monocytes % 1 % 6 % Eosinophils % 1 % Neutrophils # (Manual) 3.1 TH/MM3 2.7 TH/MM3 Metamyelocytes 2 % Differential Comment FINAL DIFF FINAL DIFF MANUAL MANUAL Atypical Lymphocytes % Platelet Estimate LOW NORMAL Platelet Morphology Comment NORMAL NORMAL Acanthocytes OCC Rouleau PRESENT Erythrocyte Sedimentation Rate 61 mm/hr Basophils % 1 % Myelocytes 1 % Laboratory Tests Test 06/14/16 04:00 Sodium Level 140 MEQ/L Potassium Level 3.2 MEQ/L Chloride Level 113 MEQ/L Carbon Dioxide Level 17.7 MEQ/L Anion Gap 9 MEQ/L Blood Urea Nitrogen 9 MG/DL Creatinine 0.67 MG/DL Estimat Glomerular Filtration 129 ML/MIN Rate Random Glucose 83 MG/DL Calcium Level 5.7 MG/DL Protein Corrected Calcium 6.6 MG/DL Total Bilirubin LESS THAN 0.1 MG/DL Direct Bilirubin 0.1 MG/DL Indirect Bilirubin 0.0 MG/DL Aspartate Amino Transf 12 U/L (AST/SGOT) Alanine Aminotransferase 7 U/L (ALT/SGPT) Alkaline Phosphatase 67 U/L C-Reactive Protein 2.72 MG/DL Total Protein 5.0 GM/DL Albumin 1.2 GM/DL Microbiology Date/Time Procedure Status Source Growth 06/14/16 11:59 Aerobic Blood Culture - Preliminary Resulted Blood Other NO GROWTH IN 1 DAY 06/14/16 11:59 Anaerobic Blood Culture - Preliminary Resulted Blood Other NO GROWTH IN 1 DAY 06/14/16 12:09 Aerobic Blood Culture - Preliminary Resulted Blood Peripheral NO GROWTH IN 1 DAY 06/14/16 12:09 Anaerobic Blood Culture - Preliminary Resulted Blood Peripheral NO GROWTH IN 1 DAY Imaging Catheter Placement X-Ray 06/05/16 0000 Signed Impressions: Service Date/Time: Sunday, June 05, 2016 10:50 - CONCLUSION: Uncomplicated Caro catheter placement as above. Chest wall cerclage stitch can be removed in approximately 10-14 days Valentin Narvaez MD Thoracic Spine CT 06/02/16 0000 Signed Impressions: Service Date/Time: Thursday, June 02, 2016 20:27 - CONCLUSION: 1. Extensive lytic destructive process along the lower endplate at T5, T6 and T7 vertebral bodies consistent with osteomyelitis. 2. There is osteomyelitis at T7 given the increased sclerosis. 3. Anterior paraspinal abscess containing air is again seen from lower T2 down to T9 level. 4. The right lower lobe mass/consolidation seen abutting the mediastinum medially is again noted. Roni Dominique MD Joint Aspiration/Injection 06/01/16 0000 Signed Impressions: Service Date/Time: May 16:59 - CONCLUSION: Uncomplicated aspiration as above. Valentin Narvaez MD Chest X-Ray 05/25/16 0000 Signed Impressions: Service Date/Time: May 22:46 - CONCLUSION: Mild vascular congestion and bibasilar atelectasis. Roshan Jain MD Thoracic Spine MRI 05/24/16 0000 Signed Impressions: Service Date/Time: Tuesday, May 24, 2016 10:40 - CONCLUSION: 1. There is extensive bilateral paraspinal abscess extending from approximately T3-T9. The abnormality appears to be centered at the T5 level where there is vertebral body height loss and fluid and enhancement in the adjacent disc spaces suggesting discitis osteomyelitis. A portion of the abnormal fluid collection extends posteriorly on the left at C5-C6. 2. The right lower lobe airspace consolidation has a connection with the adjacent right paraspinal abscess. 3. No spinal canal stenosis is identified. There is mild epidural enhancement in the anterior epidural space at T5-T7 but no epidural abscess is appreciated. Roshan Galvez MD Lumbar Spine MRI 05/24/16 0000 Signed Impressions: Service Date/Time: Tuesday, May 24, 2016 10:40 - CONCLUSION: Significant change from prior exam. No definite acute findings. See above discussion. Roshan Jain MD Chest CT 05/24/16 0000 Signed Impressions: Service Date/Time: Tuesday, May 24, 2016 10:21 - CONCLUSION: 1. Abnormal bilateral paraspinal fluid collection extending from approximately T3-T8. The appearance is highly suggestive of a paraspinal abscess. 2. Focal air space consolidation in the medial right lower lobe abutting the paraspinal process. This likely represents focal lung infection with possible central necrosis. 3. Abnormal appearance of the kidneys suggesting interstitial nephritis or ATN. 4. Partially visualized upper abdomen suggests retroperitoneal lymphadenopathy. Roshan Galvez MD Thoracic Spine MRI 05/24/16 0000 Signed Impressions: Service Date/Time: Tuesday, May 24, 2016 10:40 - CONCLUSION: 1. There is extensive bilateral paraspinal abscess extending from approximately T3-T9. The abnormality appears to be centered at the T5 level where there is vertebral body height loss and fluid and enhancement in the adjacent disc spaces suggesting discitis osteomyelitis. A portion of the abnormal fluid collection extends posteriorly on the left at C5-C6. 2. The right lower lobe airspace consolidation has a connection with the adjacent right paraspinal abscess. 3. No spinal canal stenosis is identified. There is mild epidural enhancement in the anterior epidural space at T5-T7 but no epidural abscess is appreciated. Roshan Galvez MD Lumbar Spine MRI 05/24/16 0000 Signed Impressions: Service Date/Time: Tuesday, May 24, 2016 10:40 - CONCLUSION: Significant change from prior exam. No definite acute findings. See above discussion. Roshan Jain MD Chest CT 05/24/16 0000 Signed Impressions: Service Date/Time: Tuesday, May 24, 2016 10:21 - CONCLUSION: 1. Abnormal bilateral paraspinal fluid collection extending from approximately T3-T8. The appearance is highly suggestive of a paraspinal abscess. 2. Focal air space consolidation in the medial right lower lobe abutting the paraspinal process. This likely represents focal lung infection with possible central necrosis. 3. Abnormal appearance of the kidneys suggesting interstitial nephritis or ATN. 4. Partially visualized upper abdomen suggests retroperitoneal lymphadenopathy. Roshan Galvez MD Physical Exam GENERAL: awake and alert, NAD SKIN: Warm and dry. No generalized rash HEENT: [place] conjunctivae, no petechia or hemorrhage. No scleral icterus. Moist oral mucosa. NECK: Supple, nontender. Caro site with no evidence of infection. Previous swelling over RSC joint till present, but no redness or tenderness. CARDIOVASCULAR: Regular rate and rhythm without murmurs, gallops, or rubs. No murmur. RESPIRATORY: Clear to auscultation. Breath sounds equal bilaterally. He has few scattered rhonchi. Decreased at the bases. GASTROINTESTINAL: Abdomen soft, not tender, mildly distended. No guarding or rebound. Bowel sounds are present and normoactive. No organomegaly. MUSCULOSKELETAL: Extremities without clubbing, cyanosis, or edema. No calf tenderness. L shoulder, no swelling or redness, good ROM, some pain with passive range of motion NEUROLOGICAL: Non-focal PSYCH: Normal affect, calm and cooperative. 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 S/P OR - per NS, abscess did not communicate in thoracic cavity Pneumonia, better Previous Rx for osteo thoracic, removal of thoracic hardware last 2013, with MSSA Previous Rx MSSA osteo of spine 2011 Known IVDU Fluid collection over RSC joint, aspirated, C/S negative, looks better Neutropenia, ?meds, ?ancef, ?rifampin - better Intermittent fevers - possible related to his self-injection - concern is acquiring new infection due to him manipulating his Caro catheter Left shoulder pain Repeat ESR about the same, CRP markedly improved IVDU - patient has been caught doing self injection RECOMMENDATION Continue Rocephin Will need 8 weeks IV Abx from date of surgery - anticipated end date July 19 - then chronic oral suppression with Keflex 500 BID or Dicloxacillin 500 BID Labs weekly while on IV Abx: CBC, creat, LFT - to be ordered by [facility], when he gets transferred to [place] Monitor progress Xray L shoulder Spoke with pharm - can do IVP for Rocephin - I will change it to IVP Spoke with RN to put a dressing over his Caro - in such a manner that if it gets tampered, we know that the patient tampered his Caro Follow C/S Discussed with patient the changes I am doing for his IV Abx and his dressings over cath Discussed with RN Discussed with pharm regarding change of Rocephin to IVP Genie Wadsworth MD June 15, 2016 13:19
--- NOTE | 2016-06-15 14:22 | RADRPT ---
EXAM DATE/TIME: 06/15/2016 13:55 [facility] COMPARISON: No previous studies available for comparison. INDICATIONS : Left shoulder pain since back surgery 2 weeks ago. MEDICAL HISTORY : None. SURGICAL HISTORY : None. ENCOUNTER: Initial ACUITY: 2 weeks PAIN SCORE: 5/10 LOCATION: Left shoulder FINDINGS: 4 views of the left shoulder demonstrate no fracture or dislocation. The acromioclavicular joint is i ntact. There is mild soft tissue swelling superficial to the acromioclavicular joint. The visualized portions of the left lung are clear and no displaced rib fracture is seen. CONCLUSION: Mild soft tissue swelling superficial to the acromioclavicular joint. Otherwise, no left shoulder abn ormality is identified. Roshan Galvez MD on June 15, 2016 at 14:18 Board Certified Radiologist. This report was verified electronically.
[2016-06-15 16:00] VITALS: BP 124/72; PULSE 84; RESP 20; TEMP 97.8; O2SAT 95
[2016-06-15 20:00] VITALS: BP 131/66; PULSE 72; RESP 20; TEMP 98; O2SAT 97
[2016-06-16] MEDS: HYDROmorphone HCL 4 MG TAB PO PRN ×7 (02:18→22:11)
[2016-06-16] MEDS: METHOCARBAMOL 500 MG TAB PO PRN ×2 (06:39→20:22)
[2016-06-16] MEDS: SODIUM CHLORIDE 0.9% FLUSH 10 ML FLUSH IVF SCH (08:27)
[2016-06-16] MEDS: SODIUM CHLORIDE 0.9% FLUSH 5 ML FLUSH IVF SCH ×2 (08:27→20:23)
[2016-06-16 08:28] VITALS: BP 114/66; PULSE 77; RESP 20; TEMP 97.3; O2SAT 97
[2016-06-16] MEDS: SENNOSIDES 8.6 MG TAB PO SCH (08:32)
[2016-06-16] MEDS: DOCUSATE SODIUM 100 MG CAP PO SCH ×2 (08:32→20:22)
[2016-06-16] MEDS: FERROUS SULFATE 325 MG (65 MG ELEMENTAL IRON) TAB PO SCH (08:32)
[2016-06-16] MEDS: ATENOLOL 25 MG TAB PO SCH (08:35)
[2016-06-16] MEDS: MORPHINE SULFATE 15 MG CONTROLLED RELEASE TAB PO SCH ×2 (08:35→20:24)
[2016-06-16] MEDS: SODIUM CHLORIDE 0.9% FLUSH 10 ML FLUSH IV FLUSH SCH (08:39)
[2016-06-16] MEDS: cefTRIAXone 2,000 MG VIAL IV SCH (11:54)
[2016-06-16 12:00] VITALS: BP 125/61; PULSE 75; RESP 20; TEMP 96.5; O2SAT 97
--- NOTE | 2016-06-16 13:28 | HHI.NSPN ---
(RadhaDarrion) Note Status Status: Progress Note (Darrion GarciaXu LOPES) Interval History Diagnosis 1. Thoracic paraspinal abscess primarily T3-T9 levels 2. Thoracic osteomyelitis primarily T5 level the significant bone destruction Interval History 05/25/16: T4-T5 laminectomy, evacuation epidural and paraspinous abscess 05/29/16: Drain discontinued. 06/01/16: Caro catheter placed. Patient states he is doing all right when seen this evening. 06/02/16: Patient doing well today. States that prior to Caro placement Interventional Radiology had to drain an abscess. Culture sent & pending. 06/05/16: Caro replaced by Interventional Radiology. 06/06/16: Some pain to left shoulder since he slept on it during the night, otherwise he is doing "pretty good." He did state that which ever side he slept on that shoulder was sore when he would wake up. 06/07/16: Still complains of bilateral shoulder pain that radiates between the left & right. He has no other complaints. 06/08/16: Patient doing well except for the shoulder pain that feels deep inside the joint, mostly on the left. States he was seen earlier and started on med to lower heart rate. 06/09/16: Still with shoulder pain, mostly to the left but some on the right. Otherwise he is doing good. 06/10/16: Continues with left shoulder pain. Otherwise doing well. 06/11/16: Continues with left shoulder pain. No new issues. 06/12/16: Patient still with complaint of left shoulder pain and states not able to take a deep breath due to the pain, otherwise no other complaints. 06/13/16: Patient doing well. He started Robaxin yesterday evening for the shoulder pain and it helped. The left shoulder started hurting this afternoon and Nursing had just given him the Robaxin when seen. 06/14/16: Patient doing well overall. Today he complains of back pain that started yesterday and he continues to have the left shoulder pain. When seen he was wearing the TLSO brace in bed because it helped with the pain. The patient reports that ID is to order a shoulder XR. 06/15/16: Patient states he is not doing so good today. He complains of pain to the back and the left shoulder. He states the thoracic spine feels like it is moving around. The pain in the shoulder is deep and when palpated the shoulder is nontender. The patient did have his hydromorphone discontinued yesterday. 06/16/16: Patient was in the restroom when initially went to see him this morning. He still complains of pain to the left shoulder and back. He has [place] and oral hydromorphone for pain. He did have a left shoulder XR yesterday which demonstrated soft tissue swelling but was o/w unremarkable. (Darrion Garcia) Labs, Micro, & Vital Signs Results Allergies Coded Allergies Type Severity Reaction Last Updated Verified Aspirin Allergy Severe 09/23/13 Yes Recent Impressions Shoulder X-Ray 06/15/16 0000 Signed Impressions: Service Date/Time: June 13:55 - CONCLUSION: Mild soft tissue swelling superficial to the acromioclavicular joint. Otherwise, no left shoulder abnormality is identified. Roshan Galvez MD ///// 06:00 18:00 06:00 18:00 06:00 18:00 Intake Total 480 ml 240 ml 960 ml 1120 ml Output Total 850 ml 950 ml 0 ml 400 ml 400 ml Balance -850 ml -470 ml 240 ml 560 ml 1120 ml -400 ml Intake Oral 480 ml 240 ml 960 ml 1120 ml Output Urine Total 850 ml 950 ml 0 ml 400 ml 400 ml # Voids 2 1 4 # Bowel Movements 0 0 1 0 Laboratory Tests Test 06/14/16 06/14/16 06/14/16 06/14/16 02:30 04:00 04:35 11:59 White Blood Count 4.7 TH/MM3 5.0 TH/MM3 Red Blood Count 3.48 MIL/MM3 4.12 MIL/MM3 Hemoglobin 7.8 GM/DL 9.2 GM/DL Hematocrit 24.2 % 28.4 % Mean Corpuscular Volume 69.4 FL 69.0 FL Mean Corpuscular Hemoglobin 22.5 PG 22.3 PG Mean Corpuscular Hemoglobin 32.5 % 32.4 % Concent Red Cell Distribution Width 19.0 % 19.3 % Platelet Count 117 TH/MM3 278 TH/MM3 Mean Platelet Volume 8.0 FL 7.6 FL Neutrophils (%) (Auto) 66.8 % 54.3 % Lymphocytes (%) (Auto) 30.6 % 35.0 % Monocytes (%) (Auto) 1.5 % 9.5 % Eosinophils (%) (Auto) 0.5 % 0.8 % Basophils (%) (Auto) 0.6 % 0.4 % Neutrophils # (Auto) 3.1 TH/MM3 2.7 TH/MM3 Lymphocytes # (Auto) 1.4 TH/MM3 1.7 TH/MM3 Monocytes # (Auto) 0.1 TH/MM3 0.5 TH/MM3 Eosinophils # (Auto) 0.0 TH/MM3 0.0 TH/MM3 Basophils # (Auto) 0.0 TH/MM3 0.0 TH/MM3 CBC Comment AUTO DIFF AUTO DIFF Differential Total Cells 100 100 Counted Neutrophils % (Manual) 32 % 44 % Band Neutrophils % 31 % 9 % Lymphocytes % 33 % 39 % Monocytes % 1 % 6 % Eosinophils % 1 % Neutrophils # (Manual) 3.1 TH/MM3 2.7 TH/MM3 Metamyelocytes 2 % Differential Comment FINAL DIFF FINAL DIFF MANUAL MANUAL Atypical Lymphocytes % Platelet Estimate LOW NORMAL Platelet Morphology Comment NORMAL NORMAL Acanthocytes OCC Rouleau PRESENT Erythrocyte Sedimentation Rate 61 mm/hr Sodium Level 140 MEQ/L Potassium Level 3.2 MEQ/L Chloride Level 113 MEQ/L Carbon Dioxide Level 17.7 MEQ/L Anion Gap 9 MEQ/L Blood Urea Nitrogen 9 MG/DL Creatinine 0.67 MG/DL Estimat Glomerular Filtration 129 ML/MIN Rate Random Glucose 83 MG/DL Calcium Level 5.7 MG/DL Protein Corrected Calcium 6.6 MG/DL Total Bilirubin LESS THAN 0.1 MG/DL Direct Bilirubin 0.1 MG/DL Indirect Bilirubin 0.0 MG/DL Aspartate Amino Transf 12 U/L (AST/SGOT) Alanine Aminotransferase 7 U/L (ALT/SGPT) Alkaline Phosphatase 67 U/L C-Reactive Protein 2.72 MG/DL Total Protein 5.0 GM/DL Albumin 1.2 GM/DL Urine Opiates Screen POS Urine Barbiturates Screen NEG Urine Amphetamines Screen NEG Urine Benzodiazepines Screen NEG Urine Cocaine Screen NEG Urine Cannabinoids Screen NEG Basophils % 1 % Myelocytes 1 % Fibrinogen 424 mg/dL D-Dimer Quantitative (PE/DVT) 4.38 MG/L FEU Constitutional Vital Signs Date Time Temp Pulse Resp B/P Pulse Ox O2 Delivery O2 Flow Rate FiO2 06/16/16 12:00 96.5 75 20 125/61 97 06/16/16 08:28 97.3 77 20 114/66 97 06/15/16 20:00 98.0 72 20 131/66 97 06/15/16 16:00 97.8 84 20 124/72 95 06/16/16 07:00 Intake Total 2080 ml Output Total 400 ml Balance 1680 ml (Darrion Garcia) Review of Systems/Exam ROS Neuro: Denies any headache, dizziness, numbness or tingling. Neck: Denies any neck pain. Respiratory: Denies any shortness of breath or productive cough. Cardiac: Denies any chest pain, palpitation or irregular heart rate. GI: Denies any abdominal pain, nausea, vomiting or bowel incontinence. : Denies any bladder incontinence. Back: Back pain persists. Extremities: Left shoulder pain persists. Exam Constitutional: Awake, NAD, affect seems normal but voice is sounds slightly irritated. HEENT: Normocephalic, atraumatic. Neck: Soft, supple, no meningismus or nuchal rigidity. Resp: CTAB w/o W/R/R, equal excursion, non-laboured, on RA. CV: RRR w/o M/G/R, cap refill < 2 sec. GI: Abdomen soft, non-tender, positive bowel sounds. Back: Upper thoracic spine mildly TTP, dressing intact, surgical site well- approximated w/steri-strips, no evident drainage, erythema or streaking. Extremities: JENKINS, no clubbing, deformity or discolouration. Left shoulder NTTP. Neuro: AAOx3. Speech clear & appropriate. Follows commands. Motor strength 5/5 to RUE & BLE major extensor & flexion muscle groups but 4/5 LUE. Sensation grossly intact to light touch all extremities. (Darrion Garcia) Medications Current Medications Current Medications Medications (Trade) Dose Ordered Sig/Rony Route Start Time Stop Time Status Last Admin (Narcan Inj) 0.4 mg UNSCH PRN IV 05/24/16 04:30 (D50w (Vial) Inj) 25 ml UNSCH PRN IV PUSH 05/24/16 14:15 (Glucagon Inj) 1 mg UNSCH PRN OTHER 05/24/16 14:15 (Ventolin Hfa Inh) 2 puff Q4H PRN INH 05/24/16 16:00 06/03/16 08:24 (Colace) 100 mg BID PO 05/25/16 21:00 06/16/16 08:32 (Senokot) 17.2 mg DAILY PO 05/25/16 18:00 06/16/16 08:32 (NS Flush) 2 ml UNSCH PRN IVF 05/25/16 21:45 05/29/16 22:48 (NS Flush) 2 ml BID IVF 05/26/16 09:00 06/15/16 21:00 ([place] 10-325 Mg) 1 tab Q4H PRN PO 05/30/16 18:00 06/14/16 15:03 (Oramorph Sr) 15 mg Q12HR PO 05/31/16 21:15 06/16/16 08:35 (NS Flush) See Protocol DAILY IV FLUSH 06/02/16 09:00 06/16/16 08:39 (NS Flush) See Protocol UNSCH PRN IV FLUSH 06/01/16 10:15 (Heparin Central Flush) See Protocol DAILY IV FLUSH 06/02/16 09:00 06/16/16 08:38 (Heparin Central Flush) See Protocol UNSCH PRN IV FLUSH 06/01/16 10:15 (NS Flush) UNSCH PRN IV FLUSH 06/01/16 10:15 06/14/16 04:52 (Tylenol) 650 mg Q4H PRN PO 06/03/16 21:25 06/13/16 21:03 (NS Flush) DAILY IVF 06/06/16 09:00 (Heparin Central Flush) DAILY IV FLUSH 06/06/16 09:00 (NS Flush) UNSCH PRN IVF 06/05/16 11:45 06/07/16 05:29 (Heparin Central Flush) UNSCH PRN IV FLUSH 06/05/16 11:45 (Tenormin) 25 mg DAILY PO 06/07/16 14:30 06/16/16 08:35 (Ferrous Sulfate) 325 mg DAILY PO 06/08/16 09:00 06/16/16 08:32 (Robaxin) 500 mg Q8HR PRN PO 06/12/16 22:00 06/16/16 06:39 (Dilaudid) 4 mg Q3H PRN PO 06/14/16 19:30 06/16/16 11:53 (Rocephin Inj) 2,000 mg Q24H IV 06/16/16 12:00 07/19/16 13:00 06/16/16 11:54 (Darrion Garcia) Medical Decision Making MDM Remarks Impression: 1. Thoracic paraspinal abscess primarily T3-T9 levels 2. Thoracic osteomyelitis primarily T5 level with significant bone destruction 3. Stable neurologic function status post thoracic laminectomy, evacuation epidural and paraspinous abscess 4. Thoracic spine relatively stable on CT scan 5. Max temp past 24 hrs 101.3 degrees 6. Pain essentially controlled on current medication regimen 7. No growth in blood culture from 06/03 8. No growth in body fluid from right subclavian site on 06/01 9. Haemoglobin, improved A. Most likely r/t chronic disease 10. Hyponatremia, resolved 11. Tachycardia 12. Bilateral shoulder pain A. Right shoulder pain resolved B. Left shoulder pain improved with Robaxin 13. Hypokalemia, treated Patient remains neurologically intact No growth from blood cultures from (Darrion Garcia) Plan Plan Remarks Plan of care discussed with patient. PT & OT. Brace when OOB. Antibiotics per Infectious Disease, ending 07/19 per ID note today. Will most likely need mid thoracic spine reconstruction & fusion surgery following completion of antibiotics. Continue present pain medication regimen. Neurologically intact. Left shoulder pain improved after introduction of Robaxin 06/13. Plan is to transfer patient to [place] under the Hospitalist Service when a bed is available. He has been accepted by the Hospitalist Service. (Darrion Garcia) Attending Statement I have personally seen and examined the patient on the date of this note. Pertinent documentation and study results have been reviewed by the undersigned. I have personally developed the treatment plan and performed medical decision making. Agree with findings, exam, and treatment plan as noted above. Patient was in the restroom during rounds today. No new problems reported by nursing staff. He is stable for discharge to [facility] under the care of the medicine service for completion of his intravenous antibiotics. (Jeffry Pickard MD) Darrion Garcia June 16, 2016 13:28 Jeffry Pickard MD June 16, 2016 22:18
--- NOTE | 2016-06-16 14:56 | HHI.PR ---
Subjective Remarks In bed, appear sin nad. Says he has pain, however he appears comfortable. No fever or chills. No n/v/d/c/. Had a BM in the morning,. Says she doesn't like the food. Objective Vitals Vital Signs Date Time Temp Pulse Resp B/P Pulse Ox O2 Delivery O2 Flow Rate FiO2 06/16/16 12:00 96.5 75 20 125/61 97 06/16/16 08:28 97.3 77 20 114/66 97 06/15/16 20:00 98.0 72 20 131/66 97 06/15/16 16:00 97.8 84 20 124/72 95 I/O 06/15/16 06/15/16 06/15/16 06/16/16 06/16/16 06/16/16 07:00 15:00 23:00 07:00 15:00 23:00 Intake Total 960 ml 640 ml 480 ml Output Total 400 ml 400 ml Balance 560 ml 640 ml 480 ml -400 ml Intake Oral 960 ml 640 ml 480 ml Output Urine Total 400 ml 400 ml # Voids 1 2 2 # Bowel Movements 1 0 0 Result Diagram: 06/14/16 1159 06/14/16 0400 Imaging Last Impressions Shoulder X-Ray 06/15/16 0000 Signed Impressions: Service Date/Time: June 13:55 - CONCLUSION: Mild soft tissue swelling superficial to the acromioclavicular joint. Otherwise, no left shoulder abnormality is identified. Roshan Galvez MD Catheter Placement X-Ray 06/05/16 0000 Signed Impressions: Service Date/Time: Sunday, June 05, 2016 10:50 - CONCLUSION: Uncomplicated Caro catheter placement as above. Chest wall cerclage stitch can be removed in approximately 10-14 days Valentin Narvaez MD Thoracic Spine CT 06/02/16 0000 Signed Impressions: Service Date/Time: Thursday, June 02, 2016 20:27 - CONCLUSION: 1. Extensive lytic destructive process along the lower endplate at T5, T6 and T7 vertebral bodies consistent with osteomyelitis. 2. There is osteomyelitis at T7 given the increased sclerosis. 3. Anterior paraspinal abscess containing air is again seen from lower T2 down to T9 level. 4. The right lower lobe mass/consolidation seen abutting the mediastinum medially is again noted. Roni Dominique MD Joint Aspiration/Injection 06/01/16 0000 Signed Impressions: Service Date/Time: May 16:59 - CONCLUSION: Uncomplicated aspiration as above. Valentin Narvaez MD Chest X-Ray 05/25/16 0000 Signed Impressions: Service Date/Time: May 22:46 - CONCLUSION: Mild vascular congestion and bibasilar atelectasis. Roshan Jain MD Thoracic Spine MRI 05/24/16 0000 Signed Impressions: Service Date/Time: Tuesday, May 24, 2016 10:40 - CONCLUSION: 1. There is extensive bilateral paraspinal abscess extending from approximately T3-T9. The abnormality appears to be centered at the T5 level where there is vertebral body height loss and fluid and enhancement in the adjacent disc spaces suggesting discitis osteomyelitis. A portion of the abnormal fluid collection extends posteriorly on the left at C5-C6. 2. The right lower lobe airspace consolidation has a connection with the adjacent right paraspinal abscess. 3. No spinal canal stenosis is identified. There is mild epidural enhancement in the anterior epidural space at T5-T7 but no epidural abscess is appreciated. Roshan Galvez MD Lumbar Spine MRI 05/24/16 0000 Signed Impressions: Service Date/Time: Tuesday, May 24, 2016 10:40 - CONCLUSION: Significant change from prior exam. No definite acute findings. See above discussion. Roshan Jain MD Chest CT 05/24/16 0000 Signed Impressions: Service Date/Time: Tuesday, May 24, 2016 10:21 - CONCLUSION: 1. Abnormal bilateral paraspinal fluid collection extending from approximately T3-T8. The appearance is highly suggestive of a paraspinal abscess. 2. Focal air space consolidation in the medial right lower lobe abutting the paraspinal process. This likely represents focal lung infection with possible central necrosis. 3. Abnormal appearance of the kidneys suggesting interstitial nephritis or ATN. 4. Partially visualized upper abdomen suggests retroperitoneal lymphadenopathy. Roshan Galvez MD Objective Remarks GENERAL: This is a well-nourished, well-developed patient, in no apparent distress. CARDIOVASCULAR: Regular rate and rhythm without murmurs, gallops, or rubs. RESPIRATORY: Clear to auscultation. Breath sounds equal bilaterally. No wheezes , rales, or rhonchi. GASTROINTESTINAL: Abdomen soft, non-tender, nondistended. Normal active bowel sounds MUSCULOSKELETAL: Extremities without clubbing, cyanosis, or edema. NEURO: Alert & Oriented x4 to person, place, time, situation. Moves all ext x4 Procedures T4-5 decompressive laminectomy, evacuation epidural abscess and granulation tissue Evacuation thoracic paraspinous abscess A/P Assessment and Plan 41-year-old male with: Multiple infections/ Sepsis Thoracic spine MRI shows: There is extensive bilateral paraspinal abscess extending from approximately T3-T9; The abnormality appears to be centered at the T5 level where there is vertebral body height loss and fluid and enhancement in the adjacent disc spaces suggesting discitis osteomyelitis; A portion of the abnormal fluid collection extends posteriorly on the left at C5- C6; The right lower lobe airspace consolidation has a connection with the adjacent right paraspinal abscess. Lumbar spine MRI: Significant change from prior exam; No definite acute findings. Chest CT: Abnormal bilateral paraspinal fluid collection extending from approximately T3-T8; The appearance is highly suggestive of a paraspinal abscess; Focal air space consolidation in the medial right lower lobe abutting the paraspinal process; This likely represents focal lung infection with possible central necrosis. S/p T4-5 decompressive laminectomy, evacuation epidural abscess and granulation tissue; Evacuation thoracic paraspinous abscess 05/26. 3 out of 4 blood cultures grew MSSA. Repeat blood cultures are negative. Fluid culture also grew MSSA. - wound care, weightbearing and anticoagulation per neurosurgery. - antibiotics per ID. currently on Ancef and rifampin. Will need 6-8 weeks of treatment followed by oral suppression per ID recommendations. - pain control as needed with a bowel regimen. - physical therapy. - incentive spirometry. - Breathing treatments as needed. Anemia Likely s/t sepsis. Postop. - follow CBC. - treat underlying infections. Hyperglycemia Blood sugar was elevated on admission. Likely a stress reaction. A1c 5.3%. - follow BMP as needed. IV drug abuse: Cautious with Narcotics with this patient. Wean off pain medications Last used 6 months ago per patient. Drug seeking behavior. Note: patient was noted crushing meds and placed in IV line, noted by the nurse in this admission - Cessation instruction. Nicotine dependence The patient smokes 5 cigarettes daily. - Cessation instruction given. PPx: Per neurosurgery. Plan to transfer to [facility]. Discussed with Dr Edouard in [facility] 06/14: Reported by the nurse; patient was trying to crush his pain medication and injected in his line with milk, ID and surgery notified Ariadna Sotomayor MD June 16, 2016 14:56
[2016-06-16 16:00] VITALS: BP 126/75; PULSE 77; RESP 20; TEMP 98.1; O2SAT 97
[2016-06-16] MEDS: ACETAMINOPHEN/HYDROcodone 325 MG/10 MG TAB PO PRN ×2 (17:41→21:13)
[2016-06-16 20:00] VITALS: BP 124/73; PULSE 82; RESP 20; TEMP 97.7; O2SAT 96
[2016-06-16 22:08] VITALS: BP 104/70; PULSE 85; RESP 19; TEMP 97.2; O2SAT 98
[2016-06-17] MEDS: HYDROmorphone HCL 4 MG TAB PO PRN ×7 (02:24→21:40)
[2016-06-17] MEDS: METHOCARBAMOL 500 MG TAB PO PRN ×2 (05:26→21:42)
[2016-06-17 08:00] VITALS: BP 141/79; PULSE 88; RESP 16; TEMP 99; O2SAT 96
[2016-06-17] MEDS: MORPHINE SULFATE 15 MG CONTROLLED RELEASE TAB PO SCH ×2 (08:57→22:05)
[2016-06-17] MEDS: SENNOSIDES 8.6 MG TAB PO SCH (09:00)
[2016-06-17] MEDS: DOCUSATE SODIUM 100 MG CAP PO SCH ×2 (09:00→21:00)
[2016-06-17] MEDS: SODIUM CHLORIDE 0.9% FLUSH 10 ML FLUSH IVF SCH (09:00)
[2016-06-17] MEDS: SODIUM CHLORIDE 0.9% FLUSH 10 ML FLUSH IV FLUSH SCH (09:00)
[2016-06-17] MEDS: ATENOLOL 25 MG TAB PO SCH (09:00)
[2016-06-17] MEDS: FERROUS SULFATE 325 MG (65 MG ELEMENTAL IRON) TAB PO SCH (09:00)
[2016-06-17] MEDS: SODIUM CHLORIDE 0.9% FLUSH 5 ML FLUSH IVF SCH ×2 (09:00→21:00)
--- NOTE | 2016-06-17 11:26 | HHI.NSPN ---
(Layla Mayfield) Note Status Status: Progress Note (Layla Mayfield) Interval History Interval History Mr. Rose is a 41 y/o male with osteomyelitis, discitis, epidural abscess who underwent a T4-T5 laminectomy for evacuation epidural and paraspinous abscess. He has been on IV antibiotics per ID. He continues to complain of upper thoracic pain and left shoulder pain. He underwent a left shoulder x-ray yesterday which was unremarkable. He is awaiting transfer to [facility]. (Layla Mayfield) Labs, Micro, & Vital Signs Results Date Time Temp Pulse Resp B/P Pulse Ox O2 Delivery O2 Flow Rate FiO2 06/17/16 08:00 99.0 88 16 141/79 96 06/17/16 06:27 18 06/16/16 22:13 19 06/16/16 22:08 97.2 85 19 104/70 98 06/16/16 21:24 19 06/16/16 20:00 97.7 82 20 124/73 96 06/16/16 16:00 98.1 77 20 126/75 97 06/16/16 12:00 96.5 75 20 125/61 97 06/17/16 07:00 Intake Total 1480 ml Output Total 700 ml Balance 780 ml Constitutional Vital Signs Date Time Temp Pulse Resp B/P Pulse Ox O2 Delivery O2 Flow Rate FiO2 06/17/16 08:00 99.0 88 16 141/79 96 06/17/16 06:27 18 06/16/16 22:13 19 06/16/16 22:08 97.2 85 19 104/70 98 06/16/16 21:24 19 06/16/16 20:00 97.7 82 20 124/73 96 06/16/16 16:00 98.1 77 20 126/75 97 06/16/16 12:00 96.5 75 20 125/61 97 06/17/16 07:00 Intake Total 1480 ml Output Total 700 ml Balance 780 ml (Layla Mayfield) Review of Systems/Exam Exam Alert and oriented 3. Speech is appropriate, mentation intact. Following commands well Cranial nerves pupils equal, facial motor symmetric Neck: no meningismus or nuchal rigidity Motor: some limitation to left arm due to shoulder pain, but otherwise moves right upper and b/l lower extremities 5/5 Plantars downgoing b/l. No ankle clonus. (Layla Mayfield) Medications Current Medications Current Medications Medications (Trade) Dose Ordered Sig/Rony Route PRN Reason Start Time Stop Time Status Last Admin Dose Admin Naloxone HCl (Narcan Inj) 0.4 mg UNSCH PRN IV SEE LABEL COMMENTS 05/24/16 04:30 Dextrose (D50w (Vial) Inj) 25 ml UNSCH PRN IV PUSH HYPOGLYCEMIA - SEE COMMENTS 05/24/16 14:15 Glucagon (Glucagon Inj) 1 mg UNSCH PRN OTHER HYPOGLYCEMIA-SEE COMMENTS 05/24/16 14:15 Albuterol Sulfate (Ventolin Hfa Inh) 2 puff Q4H PRN INH Dyspnea 05/24/16 16:00 06/03/16 08:24 Docusate Sodium (Colace) 100 mg BID PO 05/25/16 21:00 06/16/16 20:22 Sennosides (Senokot) 17.2 mg DAILY PO 05/25/16 18:00 06/16/16 08:32 IV Flush (NS Flush) 2 ml UNSCH PRN IVF FLUSH AFTER USING IV ACCESS 05/25/16 21:45 05/29/16 22:48 IV Flush (NS Flush) 2 ml BID IVF 05/26/16 09:00 06/17/16 09:00 Acetaminophen/ Hydrocodone Bitart ([place] 10-325 Mg) 1 tab Q4H PRN PO PAIN SCALE 3 TO 5 05/30/16 18:00 06/16/16 21:13 Morphine Sulfate (Oramorph Sr) 15 mg Q12HR PO 05/31/16 21:15 06/17/16 08:57 Sodium Chloride (NS Flush) See Protocol DAILY IV FLUSH 06/02/16 09:00 06/17/16 09:00 Sodium Chloride (NS Flush) See Protocol UNSCH PRN IV FLUSH SEE PROTOCOL TABLE 06/01/16 10:15 Heparin Sodium (Porcine) (Heparin Central Flush) See Protocol DAILY IV FLUSH 06/02/16 09:00 06/17/16 08:59 Heparin Sodium (Porcine) (Heparin Central Flush) See Protocol UNSCH PRN IV FLUSH SEE PROTOCOL TABLE 06/01/16 10:15 Sodium Chloride (NS Flush) UNSCH PRN IV FLUSH SEE PROTOCOL TABLE 06/01/16 10:15 06/14/16 04:52 Acetaminophen (Tylenol) 650 mg Q4H PRN PO FEVER > 101.5 06/03/16 21:25 06/13/16 21:03 Sodium Chloride (NS Flush) DAILY IVF 06/06/16 09:00 Heparin Sodium (Porcine) (Heparin Central Flush) DAILY IV FLUSH 06/06/16 09:00 Sodium Chloride (NS Flush) UNSCH PRN IVF SEE PROTOCOL 06/05/16 11:45 06/07/16 05:29 Heparin Sodium (Porcine) (Heparin Central Flush) UNSCH PRN IV FLUSH SEE PROTOCOL 06/05/16 11:45 Atenolol (Tenormin) 25 mg DAILY PO 06/07/16 14:30 06/16/16 08:35 Ferrous Sulfate (Ferrous Sulfate) 325 mg DAILY PO 06/08/16 09:00 06/16/16 08:32 Methocarbamol (Robaxin) 500 mg Q8HR PRN PO SPASM 06/12/16 22:00 06/17/16 05:26 Hydromorphone HCl (Dilaudid) 4 mg Q3H PRN PO PAIN SCALE 6 TO 10 06/14/16 19:30 06/17/16 08:57 Ceftriaxone Sodium (Rocephin Inj) 2,000 mg Q24H IV 06/16/16 12:00 07/19/16 13:00 06/16/16 11:54 (Layla Mayfield) Medical Decision Making MDM Remarks 41 y/o male with osteomyelitis, discitis s/p thoracic laminectomy for evacuation of epidural abscess (Layla Mayfield) Plan Plan Remarks cont antibiotic therapy TLSO on OOB cont therapy and rehab awaiting transfer to [place] [facility] (Layla Mayfield) Attending Statement The exam, history, and the medical decision-making described in the above note were completed with the assistance of the mid-level provider. I reviewed and agree with the findings presented. I attest that I had a [id number] encounter with the patient on the same day, and personally performed and documented my assessment and findings in the medical record. (Julius Huitron MD) Layla Mayfield June 17, 2016 11:26 Julius Huitron MD June 18, 2016 21:05
[2016-06-17 12:00] VITALS: BP 124/74; PULSE 81; RESP 16; TEMP 98.4; O2SAT 97
[2016-06-17] MEDS: cefTRIAXone 2,000 MG VIAL IV SCH (12:12)
--- NOTE | 2016-06-17 12:47 | HHI.PR ---
Subjective Remarks In bed.Doesn't appear in acute distress. No n/v/d/c. Eating but not much ,says food is not good. No fever or chills. Objective Vitals Vital Signs Date Time Temp Pulse Resp B/P Pulse Ox O2 Delivery O2 Flow Rate FiO2 06/17/16 12:00 98.4 81 16 124/74 97 06/17/16 08:00 99.0 88 16 141/79 96 06/17/16 06:27 18 06/16/16 22:13 19 06/16/16 22:08 97.2 85 19 104/70 98 06/16/16 21:24 19 06/16/16 20:00 97.7 82 20 124/73 96 06/16/16 16:00 98.1 77 20 126/75 97 I/O 06/16/16 06/16/16 06/16/16 06/17/16 06/17/16 06/17/16 07:00 15:00 23:00 07:00 15:00 23:00 Intake Total 480 ml 480 ml 640 ml 360 ml Output Total 700 ml Balance 480 ml -220 ml 640 ml 360 ml Intake Oral 480 ml 480 ml 640 ml 360 ml Output Urine Total 700 ml # Voids 2 2 2 2 # Bowel Movements 0 1 0 0 Result Diagram: 06/14/16 1159 06/14/16 0400 Objective Remarks GENERAL: This is a well-nourished, well-developed patient, in no apparent distress. CARDIOVASCULAR: Regular rate and rhythm without murmurs, gallops, or rubs. RESPIRATORY: Clear to auscultation. Breath sounds equal bilaterally. No wheezes , rales, or rhonchi. GASTROINTESTINAL: Abdomen soft, non-tender, nondistended. Normal active bowel sounds MUSCULOSKELETAL: Extremities without clubbing, cyanosis, or edema. NEURO: Alert & Oriented x4 to person, place, time, situation. Moves all ext x4 Procedures T4-5 decompressive laminectomy, evacuation epidural abscess and granulation tissue Evacuation thoracic paraspinous abscess A/P Assessment and Plan 41-year-old male with: Multiple infections/ Sepsis Thoracic spine MRI shows: There is extensive bilateral paraspinal abscess extending from approximately T3-T9; The abnormality appears to be centered at the T5 level where there is vertebral body height loss and fluid and enhancement in the adjacent disc spaces suggesting discitis osteomyelitis; A portion of the abnormal fluid collection extends posteriorly on the left at C5- C6; The right lower lobe airspace consolidation has a connection with the adjacent right paraspinal abscess. Lumbar spine MRI: Significant change from prior exam; No definite acute findings. Chest CT: Abnormal bilateral paraspinal fluid collection extending from approximately T3-T8; The appearance is highly suggestive of a paraspinal abscess; Focal air space consolidation in the medial right lower lobe abutting the paraspinal process; This likely represents focal lung infection with possible central necrosis. S/p T4-5 decompressive laminectomy, evacuation epidural abscess and granulation tissue; Evacuation thoracic paraspinous abscess 05/26. 3 out of 4 blood cultures grew MSSA. Repeat blood cultures are negative. Fluid culture also grew MSSA. - wound care, weightbearing and anticoagulation per neurosurgery. - antibiotics per ID. currently on Ancef and rifampin. Will need 6-8 weeks of treatment followed by oral suppression per ID recommendations. - pain control as needed with a bowel regimen. - physical therapy. - incentive spirometry. - Breathing treatments as needed. Anemia Likely s/t sepsis. Postop. - follow CBC. - treat underlying infections. Hyperglycemia Blood sugar was elevated on admission. Likely a stress reaction. A1c 5.3%. - follow BMP as needed. IV drug abuse: Cautious with Narcotics with this patient. Wean off pain medications Last used 6 months ago per patient. Drug seeking behavior. Note: patient was noted crushing meds and placed in IV line, noted by the nurse in this admission - Cessation instruction. Nicotine dependence The patient smokes 5 cigarettes daily. - Cessation instruction given. PPx: Per neurosurgery. Plan to transfer to [facility]. Discussed with Dr Edouard in [facility] 06/14: Reported by the nurse; patient was trying to crush his pain medication and injected in his line with milk, ID and surgery notified Plan to DC to [facility], I discussed with Dr Edouard in [facility] Ariadna Sotomayor MD June 17, 2016 12:47
[2016-06-17 15:31] VITALS: BP 112/78; PULSE 87; RESP 16; TEMP 96.7; O2SAT 100
[2016-06-17 20:00] VITALS: BP 139/71; PULSE 86; RESP 21; TEMP 99.1; O2SAT 97
[2016-06-18] MEDS: HYDROmorphone HCL 4 MG TAB PO PRN ×9 (00:43→23:01)
[2016-06-18 08:00] VITALS: BP 134/77; PULSE 81; RESP 17; TEMP 98.5; O2SAT 97
[2016-06-18] MEDS: SODIUM CHLORIDE 0.9% FLUSH 10 ML FLUSH IVF SCH (09:00)
[2016-06-18] MEDS: SODIUM CHLORIDE 0.9% FLUSH 10 ML FLUSH IV FLUSH SCH ×2 (09:00→12:28)
[2016-06-18] MEDS: SODIUM CHLORIDE 0.9% FLUSH 5 ML FLUSH IVF SCH ×2 (09:00→19:55)
[2016-06-18] MEDS: SENNOSIDES 8.6 MG TAB PO SCH (09:31)
[2016-06-18] MEDS: DOCUSATE SODIUM 100 MG CAP PO SCH ×2 (09:31→19:55)
[2016-06-18] MEDS: MORPHINE SULFATE 15 MG CONTROLLED RELEASE TAB PO SCH ×2 (09:32→21:00)
[2016-06-18] MEDS: ATENOLOL 25 MG TAB PO SCH (09:32)
[2016-06-18] MEDS: FERROUS SULFATE 325 MG (65 MG ELEMENTAL IRON) TAB PO SCH (09:32)
[2016-06-18 09:58] LABS: BICARBONATE 27.4 MEQ/L (21.0-32.0)
[2016-06-18] MEDS: METHOCARBAMOL 500 MG TAB PO PRN ×2 (09:59→21:00)
[2016-06-18 10:03] LABS: POTASSIUM 4.5 MEQ/L (3.5-5.1)
--- NOTE | 2016-06-18 10:23 | HHI.PR ---
Subjective Remarks Follow-up for discitis, osteomyelitis, paraspinal abscess of the thoracic spine. Patient was transferred to [place] yesterday. He is currently on long-term antibiotics for 8 weeks. Patient denies any fevers or chills. He admits to pain in his left shoulder but had x-rays on 06/15. Objective Vitals Vital Signs Date Time Temp Pulse Resp B/P Pulse Ox O2 Delivery O2 Flow Rate FiO2 06/18/16 08:00 98.5 81 17 134/77 97 06/17/16 20:00 99.1 86 21 139/71 97 06/17/16 16:27 18 06/17/16 15:31 96.7 87 16 112/78 100 06/17/16 12:00 98.4 81 16 124/74 97 I/O 06/17/16 06/17/16 06/17/16 06/18/16 06/18/16 06/18/16 07:00 15:00 23:00 07:00 15:00 23:00 Intake Total 360 ml 240 ml 240 ml Output Total 400 ml 1000 ml Balance 360 ml -160 ml -760 ml Intake Oral 360 ml 240 ml 240 ml Output Urine Total 400 ml 1000 ml # Voids 2 # Bowel Movements 0 Result Diagram: 06/14/16 1159 06/18/16 0925 Imaging Last Impressions Shoulder X-Ray 06/15/16 0000 Signed Impressions: Service Date/Time: June 13:55 - CONCLUSION: Mild soft tissue swelling superficial to the acromioclavicular joint. Otherwise, no left shoulder abnormality is identified. Roshan Galvez MD Catheter Placement X-Ray 06/05/16 0000 Signed Impressions: Service Date/Time: Sunday, June 05, 2016 10:50 - CONCLUSION: Uncomplicated Caro catheter placement as above. Chest wall cerclage stitch can be removed in approximately 10-14 days Valentin Narvaez MD Thoracic Spine CT 06/02/16 0000 Signed Impressions: Service Date/Time: Thursday, June 02, 2016 20:27 - CONCLUSION: 1. Extensive lytic destructive process along the lower endplate at T5, T6 and T7 vertebral bodies consistent with osteomyelitis. 2. There is osteomyelitis at T7 given the increased sclerosis. 3. Anterior paraspinal abscess containing air is again seen from lower T2 down to T9 level. 4. The right lower lobe mass/consolidation seen abutting the mediastinum medially is again noted. Roni Dominique MD Joint Aspiration/Injection 06/01/16 0000 Signed Impressions: Service Date/Time: May 16:59 - CONCLUSION: Uncomplicated aspiration as above. Valentin Narvaez MD Chest X-Ray 05/25/16 Signed Impressions: Service Date/Time: May 22:46 - CONCLUSION: Mild vascular congestion and bibasilar atelectasis. Roshan Jain MD Thoracic Spine MRI 05/24/16 0000 Signed Impressions: Service Date/Time: Tuesday, May 24, 2016 10:40 - CONCLUSION: 1. There is extensive bilateral paraspinal abscess extending from approximately T3-T9. The abnormality appears to be centered at the T5 level where there is vertebral body height loss and fluid and enhancement in the adjacent disc spaces suggesting discitis osteomyelitis. A portion of the abnormal fluid collection extends posteriorly on the left at C5-C6. 2. The right lower lobe airspace consolidation has a connection with the adjacent right paraspinal abscess. 3. No spinal canal stenosis is identified. There is mild epidural enhancement in the anterior epidural space at T5-T7 but no epidural abscess is appreciated. Roshan Galvez MD Lumbar Spine MRI 05/24/16 Signed Impressions: Service Date/Time: Tuesday, May 24, 2016 10:40 - CONCLUSION: Significant change from prior exam. No definite acute findings. See above discussion. Roshan Jain MD Chest CT 05/24/16 Signed Impressions: Service Date/Time: Tuesday, May 24, 2016 10:21 - CONCLUSION: 1. Abnormal bilateral paraspinal fluid collection extending from approximately T3-T8. The appearance is highly suggestive of a paraspinal abscess. 2. Focal air space consolidation in the medial right lower lobe abutting the paraspinal process. This likely represents focal lung infection with possible central necrosis. 3. Abnormal appearance of the kidneys suggesting interstitial nephritis or ATN. 4. Partially visualized upper abdomen suggests retroperitoneal lymphadenopathy. Roshan Galvez MD Objective Remarks GENERAL: Thin patient in no apparent distress. SKIN: Warm and dry. Bandage over central line to R neck. CARDIOVASCULAR: Regular rate and rhythm. RESPIRATORY: No accessory muscle use. Clear to auscultation. Breath sounds equal bilaterally. GASTROINTESTINAL: Abdomen soft on the R but slightly tense on the L, but non- tender and nondistended. MUSCULOSKELETAL: 2+ L distal radial pulse. Tender over L shoulder. Fairly good active flexion of the L shoulder; only mildly limited. No lower extremity edema bilaterally. NEUROLOGICAL: Awake and alert. Normal speech. PSYCHIATRIC: Appropriate mood and affect; insight and judgment normal. Procedures T4-5 decompressive laminectomy, evacuation epidural abscess and granulation tissue 05/25/16 Dr. Pickard Evacuation thoracic paraspinous abscess 05/25/16 Dr. Melly Lindsay chest wall aspiration 06/01/16 Urinary Catheter: No Vascular Central Line Catheter: Yes Assessment to: Continue Date of Insertion: Jun 05, 2016 Line: Central Venous Catheter (Caro catheter) Side: Right Location: Jugular Reason for Continuation correction antibiotics A/P Assessment and Plan 41-year-old male with: Multiple infections/ Sepsis: -Thoracic spine MRI with extensive bilateral paraspinal abscess extending from approximately T3-T9; The abnormality appears to be centered at the T5 level where there is vertebral body height loss and fluid and enhancement in the adjacent disc spaces suggesting discitis osteomyelitis; A portion of the abnormal fluid collection extends posteriorly on the left at C5-C6; The right lower lobe airspace consolidation has a connection with the adjacent right paraspinal abscess. -Lumbar spine MRI: Significant change from prior exam; No definite acute findings. -Chest CT: Abnormal bilateral paraspinal fluid collection extending from approximately T3-T8; The appearance is highly suggestive of a paraspinal abscess ; Focal air space consolidation in the medial right lower lobe abutting the paraspinal process; This likely represents focal lung infection with possible central necrosis. -S/p T4-5 decompressive laminectomy, evacuation epidural abscess and granulation tissue and evacuation thoracic paraspinous abscess. -04/15 blood cultures grew MSSA. Repeat blood cultures 06/14/16 are negative. Expectorated sputum, fluid culture, and back wound all with MSSA. -Per neurosurgery 06/17, wear TLSO OOB. -ID consultation appreciated. On Ceftriaxone 2 g q24h IVP for 8 weeks, end date 07/20/16 followed by chronic oral suppression with Keflex 500 BID or Dicloxacillin 500 BID. -Labs weekly while on IV Abx: CBC, creatinine, LFT. -PT -IS -Pain control as ordered by neurosurgery: [place] 10/325 mg q4h prn pain 3-5 Dilaudid 4 mg po q3h prn pain 6-10 Oramorph Sr 15 mg q12h L shoulder pain: X-ray L shoulder personally reviewed without fracture. Radiologist indicates soft tissue swelling present superficial to AC joint. Anemia: Likely due to sepsis and post-op. Improved at 9.2. -Follow CBC. -Transfuse if Hb < 7.0 Hypokalemia: Resolved. K+ 3.2-->4.5 today s/p repletion. Mg 2.0 today. -Monitor BMP Hypocalcemia: Resolved. Protein corrected calcium 6.6 on 06/14-->calcium 8.0 today s/p repletion. -Monitor BMP Hyponatremia: Mild 133. -Monitor BMP. Hyperglycemia: Blood sugar was elevated on admission. Likely a stress reaction. -Hemoglobin A1c 5.3%. -Blood glucose checks were discontinued IV drug abuse: Drug seeking behavior. On 06/14 patient was noted by nurse to be crushing meds and placing in IV line with milk. ID and surgery were notified. -Cessation instruction. -Wean pain medication Nicotine dependence The patient smokes 5 cigarettes daily. - Cessation instruction given. DVT Prophylaxis: Lovenox started today. Alejandra Elder June 18, 2016 10:23
[2016-06-18] MEDS: cefTRIAXone 2,000 MG VIAL IV SCH (12:27)
[2016-06-18 13:51] VITALS: BP 108/77; PULSE 78; RESP 16; TEMP 98.9; O2SAT 96
[2016-06-18] MEDS: ENOXAPARIN SODIUM 40 MG/0.4 ML SYRINGE SQ SCH (16:00)
[2016-06-18 20:02] VITALS: BP 140/86; PULSE 85; RESP 20; TEMP 100.4
[2016-06-18] MEDS: ACETAMINOPHEN 325 MG TAB PO PRN (21:00)
[2016-06-18 23:18] VITALS: TEMP 96.8
[2016-06-19] MEDS: HYDROmorphone HCL 4 MG TAB PO PRN ×6 (02:16→20:00)
[2016-06-19 08:00] VITALS: BP 141/66; PULSE 75; RESP 17; TEMP 98.1; O2SAT 92
[2016-06-19] MEDS: SENNOSIDES 8.6 MG TAB PO SCH (08:50)
[2016-06-19] MEDS: ATENOLOL 25 MG TAB PO SCH (08:51)
[2016-06-19] MEDS: DOCUSATE SODIUM 100 MG CAP PO SCH ×2 (08:51→19:59)
[2016-06-19] MEDS: FERROUS SULFATE 325 MG (65 MG ELEMENTAL IRON) TAB PO SCH (08:51)
[2016-06-19] MEDS: MORPHINE SULFATE 15 MG CONTROLLED RELEASE TAB PO SCH ×3 (09:00→21:00)
[2016-06-19] MEDS: SODIUM CHLORIDE 0.9% FLUSH 5 ML FLUSH IVF SCH ×2 (09:00→21:00)
[2016-06-19] MEDS: SODIUM CHLORIDE 0.9% FLUSH 10 ML FLUSH IVF SCH (09:05)
[2016-06-19 09:20] LABS: AUTOMATED NEUTROPHIL # 2.8 TH/MM3 (1.8-7.7); BASOPHIL % 0.6 % (0.0-2.0); EOSINOPHIL % 0.2 % (0.0-4.0); HEMATOCRIT 32.6 % (39.0-51.0); LYMPH % 32.9 % (9.0-44.0); LYMPHOCYTE # 1.6 TH/MM3 (1.0-4.8); MEAN CELL VOLUME 68.8 FL (80.0-100.0); MEAN CORPUSCULAR HEMOGLOBIN 22.6 PG (27.0-34.0); MEAN CORPUSCULAR HGB CONC 32.9 % (32.0-36.0); MONO % 6.3 % (0.0-8.0); PLATELET COUNT 255 TH/MM3 (150-450); RED BLOOD COUNT 4.74 MIL/MM3 (4.50-5.90); RED CELL DISTRIBUTION WIDTH 18.2 % (11.6-17.2); WHITE BLOOD COUNT 4.8 TH/MM3 (4.0-11.0)
[2016-06-19 09:28] LABS: HEMO FLAGS AUTO DIFF
[2016-06-19 09:49] LABS: PLATELET ESTIMATE SMEAR NORMAL (NORMAL); PLATELET MORPHOLOGY NORMAL (NORMAL); SCAN/DIFF AUTO DIFF CONFIRMED
--- NOTE | 2016-06-19 10:31 | HHI.PR ---
Subjective Remarks Follow-up for discitis, osteomyelitis, paraspinal abscess of the thoracic spine. Patient was noted to have a fever last night but he denies any subjective fevers or chills. Denies any cough or shortness of breath. Denies any vomiting or diarrhea. Objective Vitals Vital Signs Date Time Temp Pulse Resp B/P Pulse Ox O2 Delivery O2 Flow Rate FiO2 06/19/16 08:00 98.1 75 17 141/66 92 06/18/16 23:18 96.8 06/18/16 20:02 100.4 85 20 140/86 06/18/16 17:41 18 06/18/16 13:51 98.9 78 16 108/77 96 06/18/16 10:32 18 I/O 06/18/16 06/18/16 06/18/16 06/19/16 06/19/16 06/19/16 06:59 14:59 22:59 06:59 14:59 22:59 Intake Total 240 ml 1260 ml 0 ml 0 ml Output Total 1000 ml 1150 ml Balance -760 ml 110 ml 0 ml 0 ml Intake Oral 240 ml 1260 ml 0 ml IV Total 0 ml Output Urine Total 1000 ml 1150 ml # Bowel Movements 0 Result Diagram: 06/19/16 0900 06/18/16 0925 Objective Remarks GENERAL: Thin patient in no apparent distress. SKIN: Warm and dry. Tattoos noted. CARDIOVASCULAR: Regular rate and rhythm. RESPIRATORY: No accessory muscle use. Clear to auscultation. Breath sounds equal bilaterally. GASTROINTESTINAL: Abdomen slightly tense on the L, but otherwise soft, non- tender, non-distended. NEUROLOGICAL: Awake and alert. Normal speech. PSYCHIATRIC: Appropriate mood and affect; insight and judgment normal. Procedures T4-5 decompressive laminectomy, evacuation epidural abscess and granulation tissue 05/25/16 Dr. Pickard Evacuation thoracic paraspinous abscess 05/25/16 Dr. Pickard R chest wall aspiration 06/01/16 Urinary Catheter: No Vascular Central Line Catheter: Yes Assessment to: Continue Date of Insertion: Jun 05, 2016 Line: Central Venous Catheter (Caro catheter) Side: Right Location: Jugular A/P Problem List: (1) Fever ICD Code: R50.9 Status: Acute Assessment and Plan 41-year-old male with: Multiple infections/ Sepsis: -Thoracic spine MRI with extensive bilateral paraspinal abscess extending from approximately T3-T9; The abnormality appears to be centered at the T5 level where there is vertebral body height loss and fluid and enhancement in the adjacent disc spaces suggesting discitis osteomyelitis; A portion of the abnormal fluid collection extends posteriorly on the left at C5-C6; The right lower lobe airspace consolidation has a connection with the adjacent right paraspinal abscess. -Lumbar spine MRI: Significant change from prior exam; No definite acute findings. -Chest CT: Abnormal bilateral paraspinal fluid collection extending from approximately T3-T8; The appearance is highly suggestive of a paraspinal abscess ; Focal air space consolidation in the medial right lower lobe abutting the paraspinal process; This likely represents focal lung infection with possible central necrosis. -S/p T4-5 decompressive laminectomy, evacuation epidural abscess and granulation tissue and evacuation thoracic paraspinous abscess. -04/15 blood cultures grew MSSA. Repeat blood cultures 06/14/16 are negative. Expectorated sputum, fluid culture, and back wound all with MSSA. -Per neurosurgery 06/17, wear TLSO OOB. -ID consultation appreciated. On Ceftriaxone 2 g q24h IVP for 8 weeks, end date 07/20/16 followed by chronic oral suppression with Keflex 500 BID or Dicloxacillin 500 BID. -Labs weekly while on IV Abx: CBC, creatinine, LFT. -PT -IS -Pain control as ordered by neurosurgery: Will need to start weaning. [place] 10/325 mg q4h prn pain 3-5 Dilaudid 4 mg po q3h prn pain 6-10 changed to q4h Oramorph Sr 15 mg q12h -06/19: I was alerted by nurse that one aerobic blood culture from 06/14 is positive for acid fast bacilli. Will reconsult ID. Fever: Acute. Temp 100.4 axillary at 2000 hrs last night. Patient asymptomatic. -CBC with differential reviewed with normal white blood cell count. Blood cultures x 2 ordered. L shoulder pain: X-ray L shoulder personally reviewed without fracture. Radiologist indicates soft tissue swelling present superficial to AC joint. Anemia: Likely due to sepsis and post-op. Improved 10.7 today. -Follow CBC. -Transfuse if Hb < 7.0 Hypokalemia: Resolved. -Monitor BMP Hypocalcemia: Resolved. -Monitor BMP Hyponatremia: Mild 133. -Monitor BMP. Hyperglycemia: Blood sugar was elevated on admission. Likely a stress reaction. -Hemoglobin A1c 5.3%. -Blood glucose checks were discontinued IV drug abuse: Drug seeking behavior. On 06/14 patient was noted by nurse to be crushing meds and placing in IV line with milk. ID and surgery were notified. -Cessation instruction. -Wean pain medication Nicotine dependence The patient smokes 5 cigarettes daily. - Cessation instruction given. DVT Prophylaxis: Lovenox. Alejandra Elder June 19, 2016 10:31
[2016-06-19] MEDS: METHOCARBAMOL 500 MG TAB PO PRN ×2 (10:46→21:00)
[2016-06-19] MEDS: cefTRIAXone 2,000 MG VIAL IV SCH (12:26)
[2016-06-19] MEDS: ENOXAPARIN SODIUM 40 MG/0.4 ML SYRINGE SQ SCH (16:00)
[2016-06-19] MEDS: ACETAMINOPHEN/HYDROcodone 325 MG/10 MG TAB PO PRN (17:40)
[2016-06-19 20:00] VITALS: BP 118/63; PULSE 77; RESP 20; TEMP 97.8; O2SAT 99
[2016-06-20] MEDS: HYDROmorphone HCL 4 MG TAB PO PRN ×4 (00:02→12:40)
[2016-06-20] MEDS: METHOCARBAMOL 500 MG TAB PO PRN ×2 (04:58→19:11)
[2016-06-20] MEDS: FERROUS SULFATE 325 MG (65 MG ELEMENTAL IRON) TAB PO SCH (08:13)
[2016-06-20] MEDS: SENNOSIDES 8.6 MG TAB PO SCH (08:13)
[2016-06-20] MEDS: DOCUSATE SODIUM 100 MG CAP PO SCH ×2 (08:13→20:19)
[2016-06-20] MEDS: ATENOLOL 25 MG TAB PO SCH (08:13)
[2016-06-20] MEDS: SODIUM CHLORIDE 0.9% FLUSH 10 ML FLUSH IV FLUSH SCH (08:14)
[2016-06-20] MEDS: MORPHINE SULFATE 15 MG CONTROLLED RELEASE TAB PO SCH ×2 (08:14→21:00)
--- NOTE | 2016-06-20 08:51 | HHI.IDPN ---
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 Recently treated at [facility] for ?lung abscess and recurrent spinal abscess. Now with epidural abscess same area and possibly extending into lung. 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 Antibiotics Rocephin Lines [place] CHEW Past Medical History Reviewed Allergies: Coded Allergies: Aspirin (Verified Allergy, Severe, 09/23/13) PATIENT STATES HE HAD A HOLE IN HIS HEART WHEN HE WAS BORN AND HE WAS TOLD NOT TO TAKE ASPIRIN. ALF MAR STATES NO KNOWN ALLERGIES PATIENT DENIES ALLERGY TO ASPIRIN. 04/01/13 Objective . Vital Signs Date Time Temp Pulse Resp B/P Pulse Ox O2 Delivery O2 Flow Rate FiO2 06/19/16 20:00 97.8 77 20 118/63 99 06/19/16 06/19/16 06/20/16 15:00 23:00 07:00 Intake Total 10 ml 260 ml 60 ml Output Total 800 ml Balance 10 ml 260 ml -740 ml Intake Oral 240 ml 60 ml IV Total 10 ml 20 ml Output Urine Total 800 ml # Voids 2 # Bowel Movements 0 0 . Laboratory Tests Test 06/19/16 09:00 White Blood Count 4.8 TH/MM3 Red Blood Count 4.74 MIL/MM3 Hemoglobin 10.7 GM/DL Hematocrit 32.6 % Mean Corpuscular Volume 68.8 FL Mean Corpuscular Hemoglobin 22.6 PG Mean Corpuscular Hemoglobin 32.9 % Concent Red Cell Distribution Width 18.2 % Platelet Count 255 TH/MM3 Mean Platelet Volume 7.9 FL Neutrophils (%) (Auto) 60.0 % Lymphocytes (%) (Auto) 32.9 % Monocytes (%) (Auto) 6.3 % Eosinophils (%) (Auto) 0.2 % Basophils (%) (Auto) 0.6 % Neutrophils # (Auto) 2.8 TH/MM3 Lymphocytes # (Auto) 1.6 TH/MM3 Monocytes # (Auto) 0.3 TH/MM3 Eosinophils # (Auto) 0.0 TH/MM3 Basophils # (Auto) 0.0 TH/MM3 CBC Comment AUTO DIFF Differential Comment AUTO DIFF CONFIRMED Platelet Estimate NORMAL Platelet Morphology Comment NORMAL Laboratory Tests Test 06/18/16 09:25 Sodium Level 133 MEQ/L Potassium Level 4.5 MEQ/L Chloride Level 99 MEQ/L Carbon Dioxide Level 27.4 MEQ/L Anion Gap 7 MEQ/L Blood Urea Nitrogen 12 MG/DL Creatinine 0.95 MG/DL Estimat Glomerular Filtration 87 ML/MIN Rate Random Glucose 102 MG/DL Calcium Level 8.0 MG/DL Magnesium Level 2.0 MG/DL Microbiology Date/Time Procedure Status Source Growth 06/19/16 08:50 Aerobic Blood Culture Received Blood Peripheral Pending 06/19/16 08:50 Anaerobic Blood Culture Received Blood Peripheral Pending 06/19/16 09:00 Aerobic Blood Culture Received Blood Peripheral Pending 06/19/16 09:00 Anaerobic Blood Culture Received Blood Peripheral Pending Imaging Catheter Placement X-Ray 06/05/16 0000 Signed Impressions: Service Date/Time: Sunday, June 05, 2016 10:50 - CONCLUSION: Uncomplicated Caro catheter placement as above. Chest wall cerclage stitch can be removed in approximately 10-14 days Valentin Narvaez MD Thoracic Spine CT 06/02/16 0000 Signed Impressions: Service Date/Time: Thursday, June 02, 2016 20:27 - CONCLUSION: 1. Extensive lytic destructive process along the lower endplate at T5, T6 and T7 vertebral bodies consistent with osteomyelitis. 2. There is osteomyelitis at T7 given the increased sclerosis. 3. Anterior paraspinal abscess containing air is again seen from lower T2 down to T9 level. 4. The right lower lobe mass/consolidation seen abutting the mediastinum medially is again noted. Roni Dominique MD Joint Aspiration/Injection 06/01/16 0000 Signed Impressions: Service Date/Time: May 16:59 - CONCLUSION: Uncomplicated aspiration as above. Valentin Narvaez MD Chest X-Ray 05/25/16 0000 Signed Impressions: Service Date/Time: May 22:46 - CONCLUSION: Mild vascular congestion and bibasilar atelectasis. Roshan Jain MD Thoracic Spine MRI 05/24/16 0000 Signed Impressions: Service Date/Time: Tuesday, May 24, 2016 10:40 - CONCLUSION: 1. There is extensive bilateral paraspinal abscess extending from approximately T3-T9. The abnormality appears to be centered at the T5 level where there is vertebral body height loss and fluid and enhancement in the adjacent disc spaces suggesting discitis osteomyelitis. A portion of the abnormal fluid collection extends posteriorly on the left at C5-C6. 2. The right lower lobe airspace consolidation has a connection with the adjacent right paraspinal abscess. 3. No spinal canal stenosis is identified. There is mild epidural enhancement in the anterior epidural space at T5-T7 but no epidural abscess is appreciated. Roshan Galvez MD Lumbar Spine MRI 05/24/16 Signed Impressions: Service Date/Time: Tuesday, May 24, 2016 10:40 - CONCLUSION: Significant change from prior exam. No definite acute findings. See above discussion. Roshan Jain MD Chest CT 05/24/16 Signed Impressions: Service Date/Time: Tuesday, May 24, 2016 10:21 - CONCLUSION: 1. Abnormal bilateral paraspinal fluid collection extending from approximately T3-T8. The appearance is highly suggestive of a paraspinal abscess. 2. Focal air space consolidation in the medial right lower lobe abutting the paraspinal process. This likely represents focal lung infection with possible central necrosis. 3. Abnormal appearance of the kidneys suggesting interstitial nephritis or ATN. 4. Partially visualized upper abdomen suggests retroperitoneal lymphadenopathy. Roshan Galvez MD Thoracic Spine MRI 05/24/16 Signed Impressions: Service Date/Time: Tuesday, May 24, 2016 10:40 - CONCLUSION: 1. There is extensive bilateral paraspinal abscess extending from approximately T3-T9. The abnormality appears to be centered at the T5 level where there is vertebral body height loss and fluid and enhancement in the adjacent disc spaces suggesting discitis osteomyelitis. A portion of the abnormal fluid collection extends posteriorly on the left at C5-C6. 2. The right lower lobe airspace consolidation has a connection with the adjacent right paraspinal abscess. 3. No spinal canal stenosis is identified. There is mild epidural enhancement in the anterior epidural space at T5-T7 but no epidural abscess is appreciated. Roshan Galvez MD Lumbar Spine MRI 05/24/16 Signed Impressions: Service Date/Time: Tuesday, May 24, 2016 10:40 - CONCLUSION: Significant change from prior exam. No definite acute findings. See above discussion. Roshan Jain MD Chest CT 05/24/16 Signed Impressions: Service Date/Time: Tuesday, May 24, 2016 10:21 - CONCLUSION: 1. Abnormal bilateral paraspinal fluid collection extending from approximately T3-T8. The appearance is highly suggestive of a paraspinal abscess. 2. Focal air space consolidation in the medial right lower lobe abutting the paraspinal process. This likely represents focal lung infection with possible central necrosis. 3. Abnormal appearance of the kidneys suggesting interstitial nephritis or ATN. 4. Partially visualized upper abdomen suggests retroperitoneal lymphadenopathy. Roshan Galvez MD Physical Exam GENERAL: awake and alert, NAD Cachetic SKIN: Warm and dry. No generalized rash HEENT: [place] conjunctivae, no petechia or hemorrhage. No scleral icterus. Moist oral mucosa No thrush. NECK: Supple, nontender. Caro site with no evidence of infection. Previous swelling over RSC joint till present, but no redness or tenderness. CARDIOVASCULAR: Regular rate and rhythm without murmurs, gallops, or rubs. No murmur. RESPIRATORY: Clear to auscultation. Breath sounds equal bilaterally. He has few scattered rhonchi. Decreased at the bases. GASTROINTESTINAL: Abdomen soft, not tender, mildly distended. No guarding or rebound. Bowel sounds are present and normoactive. No organomegaly. MUSCULOSKELETAL: Extremities without clubbing, cyanosis, or edema. No calf tenderness. L shoulder, no swelling or redness, good ROM, some pain with passive range of motion NEUROLOGICAL: Non-focal PSYCH: Normal affect, calm and cooperative. 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
[2016-06-20] MEDS: SODIUM CHLORIDE 0.9% FLUSH 5 ML FLUSH IVF SCH ×2 (09:00→21:00)
[2016-06-20] MEDS: CLARITHROMYCIN 500 MG TAB PO SCH ×2 (09:00→20:18)
[2016-06-20] MEDS: SODIUM CHLORIDE 0.9% FLUSH 10 ML FLUSH IVF SCH (09:00)
[2016-06-20] MEDS: LINEZOLID 600 MG TAB PO SCH ×2 (09:00→20:18)
[2016-06-20] MEDS: cefTRIAXone 2,000 MG VIAL IV SCH (12:00)
--- NOTE | 2016-06-20 14:44 | HHI.PR ---
Subjective Remarks Patient seen and examined today for follow-up on discitis, osteomyelitis, paraspinal abscess of the thoracic spine. Patient lying in bed. He is denying any new complaints. He does not indicate me that he is having any significant pain or worsening of his present pain Objective Vitals Vital Signs Date Time Temp Pulse Resp B/P Pulse Ox O2 Delivery O2 Flow Rate FiO2 06/19/16 20:00 97.8 77 20 118/63 99 I/O 06/19/16 06/19/16 06/19/16 06/20/16 06/20/16 06/20/16 07:00 15:00 23:00 07:00 15:00 23:00 Intake Total 0 ml 10 ml 260 ml 60 ml Output Total 800 ml Balance 0 ml 10 ml 260 ml -740 ml Intake Oral 0 ml 240 ml 60 ml IV Total 0 ml 10 ml 20 ml Output Urine Total 800 ml # Voids 2 3 # Bowel Movements 0 0 Result Diagram: 06/19/16 0900 06/18/16 0925 Objective Remarks GENERAL: Well-developed, cachectic, in no acute distress. alert and orientated HEENT: Head is normocephalic without any lesions or masses noted. Facial features are symmetric. Eyes: Extraocular muscles are intact. Conjunctivae were clear. NECK: Supple without any masses. Trachea midline no deviation. No JVD, CARDIAC: Regular rhythm, regular rate. S1/S2 are heard. No murmurs gallops or rubs. LUNGS: Clear to auscultation bilaterally. No wheeze, rhonchi or rales. No use of accessory muscles on inspiration or expiration. ABDOMEN: Soft, nontender. Nondistended. Bowel sounds heard in all 4 quadrants. No organomegaly or masses. Negative rebound, negative guarding EXTREMITIES: No edema, pulses are equal bilaterally. No cyanosis or clubbing NEUROLOGY: Mood and affect appear appropriate. Cranial nerves II through XII grossly intact. Moving all extremities, speech is clear Procedures T4-5 decompressive laminectomy, evacuation epidural abscess and granulation tissue 05/25/16 Dr. Pickard Evacuation thoracic paraspinous abscess 05/25/16 Dr. Pickard R chest wall aspiration 06/01/16 Urinary Catheter: No Vascular Central Line Catheter: Yes Assessment to: Continue Date of Insertion: Jun 05, 2016 Line: Central Venous Catheter (Caro catheter) Side: Right Location: Jugular A/P Assessment and Plan Multiple infections: Paraspinal abscess, discitis, osteomyelitis, right lung consolidation, epidural abscess, bacteremia Thoracic spine MRI with extensive bilateral paraspinal abscess, discitis, osteomyelitis, right lung consolidation, epidural abscess S/p T4-5 decompressive laminectomy, evacuation epidural abscess and granulation tissue and evacuation thoracic paraspinous abscess on 05/25/16. 3/4 blood cultures grew MSSA. Repeat blood cultures 06/14/16 are negative. Expectorated sputum, fluid culture, and back wound all with MSSA. Infectious disease evaluated the patient and made recommendations Rocephin 2 g IV with end date 07/19/16, then chronic suppression with Keflex 500 twice daily or dicloxacillin 500 mg twice daily Weekly labs while on IV antibiotics Bacteremia with acid-fast bacillus, still with low-grade fever Patient does have history of Mycobacterium abscesses back in 2013, patient does not indicate that he underwent any management Infectious disease recommending HIV testing, starting Biaxin, Zyvox Pain control, try to avoid any medication that can be crushed and injected [place] 10/325 mg q4h prn pain 3-5 Decrease to Dilaudid 2 mg po q4h prn pain 6-10 will need to discontinue Dilaudid at this time due to patient being observed trying to inject while in the hospital Oramorph Sr 15 mg q12h Left Shoulder pain: X-ray did not indicate any acute abnormality Anemia: Stable Follow CBC. Transfuse if Hb < 7.0 Hypokalemia: Hypocalcemia:Hyponatremia: Monitor BMP. Hyperglycemia: Blood sugar was elevated on admission. Likely a stress reaction. Hemoglobin A1c 5.3%. Blood glucose checks were discontinued IV drug abuse: Patient still with Drug seeking behavior. On 06/14 patient was noted by nurse to be crushing meds and placing in IV line with milk. ID and surgery were notified. Cessation instruction. Wean pain medication Nicotine dependence The patient smokes 5 cigarettes daily. Cessation instruction given. DVT Prophylaxis: Lovenox. Discharge Planning Discharge planning once patient finished IV antibiotics Jeremi Coombs June 20, 2016 14:44
[2016-06-20] MEDS: ENOXAPARIN SODIUM 40 MG/0.4 ML SYRINGE SQ SCH (16:10)
[2016-06-20] MEDS: HYDROmorphone HCL 2 MG TAB PO PRN ×2 (16:13→20:21)
[2016-06-20 20:00] VITALS: BP 121/70; PULSE 77; RESP 16; TEMP 98.7; O2SAT 97
[2016-06-20] MEDS: SODIUM CHLORIDE 0.9% FLUSH 5 ML FLUSH IVF PRN (20:26)
[2016-06-20] MEDS: ACETAMINOPHEN/HYDROcodone 325 MG/10 MG TAB PO PRN (21:53)
[2016-06-21] MEDS: HYDROmorphone HCL 2 MG TAB PO PRN ×3 (00:36→08:57)
[2016-06-21] MEDS: METHOCARBAMOL 500 MG TAB PO PRN ×3 (05:04→21:29)
[2016-06-21] MEDS: ACETAMINOPHEN/HYDROcodone 325 MG/10 MG TAB PO PRN (06:33)
[2016-06-21 08:00] VITALS: BP 117/82; PULSE 86; RESP 18; TEMP 95.7; O2SAT 99
[2016-06-21] MEDS: SENNOSIDES 8.6 MG TAB PO SCH (08:54)
[2016-06-21] MEDS: LINEZOLID 600 MG TAB PO SCH ×2 (08:54→20:26)
[2016-06-21] MEDS: CLARITHROMYCIN 500 MG TAB PO SCH ×2 (08:54→20:26)
[2016-06-21] MEDS: DOCUSATE SODIUM 100 MG CAP PO SCH ×2 (08:55→20:27)
[2016-06-21] MEDS: FERROUS SULFATE 325 MG (65 MG ELEMENTAL IRON) TAB PO SCH (08:55)
[2016-06-21] MEDS: ATENOLOL 25 MG TAB PO SCH (08:55)
[2016-06-21] MEDS: MORPHINE SULFATE 15 MG CONTROLLED RELEASE TAB PO SCH ×2 (09:45→20:26)
[2016-06-21] MEDS: SODIUM CHLORIDE 0.9% FLUSH 10 ML FLUSH IVF SCH (09:46)
[2016-06-21] MEDS: SODIUM CHLORIDE 0.9% FLUSH 10 ML FLUSH IV FLUSH SCH (09:46)
--- NOTE | 2016-06-21 09:53 | HHI.PR ---
Subjective Remarks Patient seen and examined today for follow-up on discitis and osteomyelitis, paraspinal abscess of the thoracic spine. Did discuss with Dr. Pickard this morning, he indicates that the patient was injecting himself with Dilaudid at the main hospital and would prefer that the patient be off of Dilaudid if possible. When evaluating the patient his only complaint was that he is suffering and pain more now that we decrease his dose of Dilaudid. I discussed with him the need to continue to wean off of Dilaudid this time. He states that he does not want to do that. He states that he was using Dilaudid on a street and wants to continue to use it. He indicates that he had pain management doctor who is prescribing the medication. However, I searched [facility] and he is never prescribed Dilaudid. It indicates that his last prescription was on 04/13/16 from a physician in [place] for oxycodone 10 mg times daily. Patient indicates that if we discontinue Dilaudid that we need to discharge him. I notified him that we cannot discharge him due to his medical conditions that he would have to sign out AGAINST MEDICAL ADVICE. Objective Vitals Vital Signs Date Time Temp Pulse Resp B/P Pulse Ox O2 Delivery O2 Flow Rate FiO2 06/21/16 08:00 95.7 86 18 117/82 99 06/21/16 07:33 20 06/21/16 06:04 16 06/20/16 22:00 16 06/20/16 20:00 98.7 77 16 121/70 97 I/O 06/20/16 06/20/16 06/20/16 06/21/16 06/21/16 06/21/16 07:00 15:00 23:00 07:00 15:00 23:00 Intake Total 60 ml 480 ml 220 ml Output Total 800 ml 300 ml 200 ml 425 ml Balance -740 ml 180 ml 20 ml -425 ml Intake Oral 60 ml 480 ml 220 ml Output Urine Total 800 ml 300 ml 200 ml 425 ml # Voids 3 2 # Bowel Movements 0 0 0 Result Diagram: 06/19/16 0900 06/18/16 0925 Objective Remarks GENERAL: Well-developed, cachectic, in no acute distress. alert and orientated HEENT: Head is normocephalic without any lesions or masses noted. Facial features are symmetric. Eyes: Extraocular muscles are intact. Conjunctivae were clear. NECK: Supple without any masses. Trachea midline no deviation. No JVD, CARDIAC: Regular rhythm, regular rate. S1/S2 are heard. No murmurs gallops or rubs. LUNGS: Clear to auscultation bilaterally. No wheeze, rhonchi or rales. No use of accessory muscles on inspiration or expiration. ABDOMEN: Soft, nontender. Nondistended. Bowel sounds heard in all 4 quadrants. No organomegaly or masses. Negative rebound, negative guarding EXTREMITIES: No edema, pulses are equal bilaterally. No cyanosis or clubbing NEUROLOGY: Mood and affect appear appropriate. Cranial nerves II through XII grossly intact. Moving all extremities, speech is clear Procedures T4-5 decompressive laminectomy, evacuation epidural abscess and granulation tissue 05/25/16 Dr. Pickard Evacuation thoracic paraspinous abscess 05/25/16 Dr. Melly Lindsay chest wall aspiration 06/01/16 Urinary Catheter: No Vascular Central Line Catheter: Yes Assessment to: Continue Date of Insertion: Jun 05, 2016 Line: Central Venous Catheter (Caro catheter) Side: Right Location: Jugular A/P Assessment and Plan Multiple infections: Paraspinal abscess, discitis, osteomyelitis, right lung consolidation, epidural abscess, bacteremia Thoracic spine MRI with extensive bilateral paraspinal abscess, discitis, osteomyelitis, right lung consolidation, epidural abscess S/p T4-5 decompressive laminectomy, evacuation epidural abscess and granulation tissue and evacuation thoracic paraspinous abscess on 05/25/16. 3/4 blood cultures grew MSSA. Repeat blood cultures 06/14/16 are negative. Expectorated sputum, fluid culture, and back wound all with MSSA. 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, patient does not indicate that he underwent any management Infectious disease recommending HIV testing, Biaxin, Zyvox Pain control, try to avoid any medication that can be crushed and injected Reviewed [facility] in which the patient was prescribed oxycodone 10 mg 3 times a day in outpatient setting Percocet 10/325 po Q 6 hrs prn pain 6-10 Dilaudid 2 mg po q4h prn pain 6-10 will need to discontinue Dilaudid at this time due to patient being observed trying to inject while in the hospital Oramorph Sr 15 mg q12h Left Shoulder pain: X-ray did not indicate any acute abnormality Anemia: Stable Follow CBC. Transfuse if Hb < 7.0 Hypokalemia: Hypocalcemia:Hyponatremia: Monitor BMP. Hyperglycemia: Blood sugar was elevated on admission. Likely a stress reaction. Hemoglobin A1c 5.3%. Blood glucose checks were discontinued IV drug abuse: Patient still with Drug seeking behavior. On 06/14 patient was noted by nurse to be crushing meds and placing in IV line with milk. ID and surgery were notified. Cessation instruction. Wean pain medication Nicotine dependence The patient smokes 5 cigarettes daily. Cessation instruction given. DVT Prophylaxis: Lovenox. Discharge Planning Discharge planning once patient finished IV antibiotics Jeremi Coombs June 21, 2016 09:52
[2016-06-21] MEDS ORDERED: traMADol HCL 50 MG TAB PO PRN (10:00)
[2016-06-21] MEDS ORDERED: PILL SPLITTER OTHER PRN (10:45)
[2016-06-21] MEDS: oxyCODONE/ACETAMINOPHEN 10 MG/325 MG TAB PO PRN ×3 (10:49→19:47)
[2016-06-21] MEDS: cefTRIAXone 2,000 MG VIAL IV SCH (13:32)
[2016-06-21] MEDS: SODIUM CHLORIDE 0.9% FLUSH 5 ML FLUSH IVF SCH ×2 (15:08→20:27)
[2016-06-21] MEDS: ENOXAPARIN SODIUM 40 MG/0.4 ML SYRINGE SQ SCH (15:47)
[2016-06-21 20:00] VITALS: BP 96/71; PULSE 91; RESP 20; TEMP 96.4; O2SAT 98
[2016-06-22] MEDS: oxyCODONE/ACETAMINOPHEN 10 MG/325 MG TAB PO PRN ×5 (02:03→20:16)
[2016-06-22] MEDS: METHOCARBAMOL 500 MG TAB PO PRN ×2 (05:57→15:29)
[2016-06-22 08:00] VITALS: BP 114/65; PULSE 68; RESP 16; TEMP 98.1; O2SAT 96
[2016-06-22] MEDS: FERROUS SULFATE 325 MG (65 MG ELEMENTAL IRON) TAB PO SCH (09:00)
[2016-06-22] MEDS: MORPHINE SULFATE 15 MG CONTROLLED RELEASE TAB PO SCH ×3 (09:24→21:09)
[2016-06-22] MEDS: SENNOSIDES 8.6 MG TAB PO SCH (09:24)
[2016-06-22] MEDS: DOCUSATE SODIUM 100 MG CAP PO SCH ×2 (09:25→20:05)
[2016-06-22] MEDS: ATENOLOL 25 MG TAB PO SCH (09:25)
[2016-06-22] MEDS: CLARITHROMYCIN 500 MG TAB PO SCH ×2 (09:25→20:04)
[2016-06-22] MEDS: SODIUM CHLORIDE 0.9% FLUSH 10 ML FLUSH IV FLUSH SCH (09:26)
[2016-06-22] MEDS: LINEZOLID 600 MG TAB PO SCH ×2 (09:31→20:09)
[2016-06-22] MEDS: SODIUM CHLORIDE 0.9% FLUSH 5 ML FLUSH IVF SCH ×2 (09:31→20:18)
[2016-06-22] MEDS: SODIUM CHLORIDE 0.9% FLUSH 10 ML FLUSH IVF SCH (09:34)
--- NOTE | 2016-06-22 10:36 | HHI.PR ---
Subjective Remarks Patient seen and examined today for follow-up on discitis and osteomyelitis, paraspinal abscess of the thoracic spine. Patient very angry, aggressive, argumentative as usual. His only complaint is that we need to increase his pain medication. He is trying to manipulate medications to see which ones he can try to get increased. He had a nice variety of profanity that he used in reference to and about medical staff. Objective Vitals Vital Signs Date Time Temp Pulse Resp B/P Pulse Ox O2 Delivery O2 Flow Rate FiO2 06/22/16 06:59 20 06/21/16 21:26 16 06/21/16 20:00 96.4 91 20 96/71 98 I/O 06/21/16 06/21/16 06/21/16 06/22/16 06/22/16 06/22/16 06:59 14:59 22:59 06:59 14:59 22:59 Intake Total 220 ml 360 ml 220 ml 220 ml Output Total 200 ml 850 ml 150 ml 200 ml Balance 20 ml -490 ml 70 ml 20 ml Intake Oral 220 ml 360 ml 220 ml 220 ml Output Urine Total 200 ml 850 ml 150 ml 200 ml # Bowel Movements 0 0 0 0 Result Diagram: 06/19/16 0900 06/18/16 0925 Objective Remarks GENERAL: Well-developed, cachectic, in no acute distress. alert and orientated HEENT: Head is normocephalic without any lesions or masses noted. Facial features are symmetric. Eyes: Extraocular muscles are intact. Conjunctivae were clear. NECK: Supple without any masses. Trachea midline no deviation. No JVD, CARDIAC: Regular rhythm, regular rate. S1/S2 are heard. No murmurs gallops or rubs. LUNGS: Clear to auscultation bilaterally. No wheeze, rhonchi or rales. No use of accessory muscles on inspiration or expiration. ABDOMEN: Soft, nontender. Nondistended. Bowel sounds heard in all 4 quadrants. No organomegaly or masses. Negative rebound, negative guarding EXTREMITIES: No edema, pulses are equal bilaterally. No cyanosis or clubbing NEUROLOGY: Mood and affect appear appropriate. Cranial nerves II through XII grossly intact. Moving all extremities, speech is clear Procedures T4-5 decompressive laminectomy, evacuation epidural abscess and granulation tissue 05/25/16 Dr. Pickard Evacuation thoracic paraspinous abscess 05/25/16 Dr. Melly Lindsay chest wall aspiration 06/01/16 Urinary Catheter: No Vascular Central Line Catheter: Yes Assessment to: Continue Date of Insertion: Jun 05, 2016 Line: Central Venous Catheter (Caro catheter) Side: Right Location: Jugular A/P Assessment and Plan Multiple infections: Paraspinal abscess, discitis, osteomyelitis, right lung consolidation, epidural abscess, bacteremia Thoracic spine MRI with extensive bilateral paraspinal abscess, discitis, osteomyelitis, right lung consolidation, epidural abscess S/p T4-5 decompressive laminectomy, evacuation epidural abscess and granulation tissue and evacuation thoracic paraspinous abscess on 05/25/16. 04/15 blood cultures grew MSSA. Repeat blood cultures 06/14/16 are negative. Expectorated sputum, fluid culture, and back wound all with MSSA. 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 Transfuse if Hb < 7.0 Hypokalemia: Hypocalcemia:Hyponatremia: Monitor BMP. Hyperglycemia: Blood sugar was elevated on admission. Likely a stress reaction. Hemoglobin A1c 5.3%. Blood glucose checks were discontinued IV drug abuse: Patient still with Drug seeking behavior. On 06/14 patient was noted by nurse to be crushing meds and placing in IV line with milk. ID and surgery were notified. Cessation instruction. Discontinue Dilaudid, avoid any medication that can be crushed and injected Nicotine dependence The patient smokes 5 cigarettes daily. Cessation instruction given. DVT Prophylaxis: Lovenox. Discharge Planning Discharge planning once patient finished IV antibiotics Jeremi Coombs June 22, 2016 10:36
[2016-06-22 11:46] LABS: HIV 1/2 AG AND AB SCREEN Negative (Negative)
[2016-06-22] MEDS: cefTRIAXone 2,000 MG VIAL IV SCH (15:12)
[2016-06-22] MEDS: ENOXAPARIN SODIUM 40 MG/0.4 ML SYRINGE SQ SCH ×2 (15:13→15:28)
[2016-06-22 20:00] VITALS: BP 121/74; PULSE 77; RESP 20; TEMP 97.5; O2SAT 100
[2016-06-23] MEDS: oxyCODONE/ACETAMINOPHEN 10 MG/325 MG TAB PO PRN ×6 (00:33→20:49)
[2016-06-23] MEDS: METHOCARBAMOL 500 MG TAB PO PRN ×3 (00:34→16:46)
[2016-06-23 08:00] VITALS: BP 118/70; PULSE 70; RESP 16; TEMP 98.2; O2SAT 97
[2016-06-23] MEDS: FERROUS SULFATE 325 MG (65 MG ELEMENTAL IRON) TAB PO SCH (08:50)
[2016-06-23] MEDS: LINEZOLID 600 MG TAB PO SCH ×2 (08:51→20:46)
[2016-06-23] MEDS: CLARITHROMYCIN 500 MG TAB PO SCH ×2 (08:51→20:46)
[2016-06-23] MEDS: ATENOLOL 25 MG TAB PO SCH (08:51)
[2016-06-23] MEDS: DOCUSATE SODIUM 100 MG CAP PO SCH ×2 (08:51→20:46)
[2016-06-23] MEDS: MORPHINE SULFATE 15 MG CONTROLLED RELEASE TAB PO SCH ×2 (08:51→20:47)
[2016-06-23] MEDS: SODIUM CHLORIDE 0.9% FLUSH 10 ML FLUSH IV FLUSH SCH (08:55)
[2016-06-23] MEDS: SODIUM CHLORIDE 0.9% FLUSH 10 ML FLUSH IVF SCH (08:56)
[2016-06-23] MEDS: SODIUM CHLORIDE 0.9% FLUSH 5 ML FLUSH IVF SCH ×2 (08:58→20:51)
[2016-06-23] MEDS: SENNOSIDES 8.6 MG TAB PO SCH (08:58)
--- NOTE | 2016-06-23 09:59 | HHI.PR ---
Subjective Remarks Patient seen and examined today for follow-up on discitis and osteomyelitis, paraspinal abscess of the thoracic spine. Patient indicates that his back pain is worsening, with decreased mobility. Review of records indicate that physical therapy signed off because the patient was ambulating over 500 feet independently. Nursing staff indicates that the patient is not even trying to get out of bed at this time. I will contact Dr. Pickard to see if further evaluation needs to be performed. Objective Vitals Vital Signs Date Time Temp Pulse Resp B/P Pulse Ox O2 Delivery O2 Flow Rate FiO2 06/23/16 09:51 18 06/23/16 09:51 18 06/22/16 20:00 97.5 77 20 121/74 100 I/O 06/22/16 06/22/16 06/22/16 06/23/16 06/23/16 06/23/16 07:00 15:00 23:00 07:00 15:00 23:00 Intake Total 220 ml 240 ml 120 ml Output Total 200 ml 650 ml 325 ml 475 ml Balance 20 ml -650 ml -85 ml -355 ml Intake Oral 220 ml 240 ml 120 ml Output Urine Total 200 ml 650 ml 325 ml 475 ml # Bowel Movements 0 Result Diagram: 06/19/16 0900 Objective Remarks GENERAL: Well-developed, cachectic, in no acute distress. alert and orientated HEENT: Head is normocephalic without any lesions or masses noted. Facial features are symmetric. Eyes: Extraocular muscles are intact. Conjunctivae were clear. NECK: Supple without any masses. Trachea midline no deviation. No JVD, CARDIAC: Regular rhythm, regular rate. S1/S2 are heard. No murmurs gallops or rubs. LUNGS: Clear to auscultation bilaterally. No wheeze, rhonchi or rales. No use of accessory muscles on inspiration or expiration. ABDOMEN: Soft, nontender. Nondistended. Bowel sounds heard in all 4 quadrants. No organomegaly or masses. Negative rebound, negative guarding EXTREMITIES: No edema, pulses are equal bilaterally. No cyanosis or clubbing NEUROLOGY: Mood and affect appear appropriate. Cranial nerves II through XII grossly intact. Moving all extremities, speech is clear Procedures T4-5 decompressive laminectomy, evacuation epidural abscess and granulation tissue 05/25/16 Dr. Pickard Evacuation thoracic paraspinous abscess 05/25/16 Dr. Melly Lindsay chest wall aspiration 06/01/16 Urinary Catheter: No Vascular Central Line Catheter: Yes Assessment to: Continue Date of Insertion: Jun 05, 2016 Line: Central Venous Catheter (Caro catheter) Side: Right Location: Jugular A/P Assessment and Plan Multiple infections: Paraspinal abscess, discitis, osteomyelitis, right lung consolidation, epidural abscess, bacteremia Thoracic spine MRI with extensive bilateral paraspinal abscess, discitis, osteomyelitis, right lung consolidation, epidural abscess S/p T4-5 decompressive laminectomy, evacuation epidural abscess and granulation tissue and evacuation thoracic paraspinous abscess on 05/25/16. 04/15 blood cultures grew MSSA. Repeat blood cultures 06/14/16 are negative. Expectorated sputum, fluid culture, and back wound all with MSSA. Infectious disease evaluated the patient and made recommendations Rocephin 2 g IV with end date 07/19/16, then chronic suppression with Keflex 500 twice daily or dicloxacillin 500 mg twice daily Weekly labs while on IV antibiotics 06/23 patient indicates pain is worsening, will reconsult PT, will contact Dr. 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 Transfuse if Hb < 7.0 Hypokalemia: Hypocalcemia:Hyponatremia: Monitor BMP. Hyperglycemia: Blood sugar was elevated on admission. Likely a stress reaction. Hemoglobin A1c 5.3%. Blood glucose checks were discontinued IV drug abuse: Patient still with Drug seeking behavior. On 06/14 patient was noted by nurse to be crushing meds and placing in IV line with milk. ID and surgery were notified. Cessation instruction. Discontinue Dilaudid, avoid any medication that can be crushed and injected Nicotine dependence The patient smokes 5 cigarettes daily. Cessation instruction given. DVT Prophylaxis: Lovenox. Discharge Planning Discharge planning once patient finished IV antibiotics Jeremi Coombs June 23, 2016 09:59
[2016-06-23] MEDS: cefTRIAXone 2,000 MG VIAL IV SCH (12:32)
[2016-06-23] MEDS: ENOXAPARIN SODIUM 40 MG/0.4 ML SYRINGE SQ SCH (16:45)
[2016-06-23 20:00] VITALS: BP 127/76; PULSE 100; RESP 20; TEMP 99.5; O2SAT 96
[2016-06-24] MEDS: oxyCODONE/ACETAMINOPHEN 10 MG/325 MG TAB PO PRN ×6 (00:46→21:09)
[2016-06-24] MEDS: METHOCARBAMOL 500 MG TAB PO PRN ×3 (00:46→17:04)
[2016-06-24 08:45] VITALS: PULSE 80; RESP 18
[2016-06-24] MEDS: DOCUSATE SODIUM 100 MG CAP PO SCH ×2 (09:00→20:19)
[2016-06-24] MEDS: FERROUS SULFATE 325 MG (65 MG ELEMENTAL IRON) TAB PO SCH (09:00)
[2016-06-24] MEDS: SODIUM CHLORIDE 0.9% FLUSH 5 ML FLUSH IVF SCH ×2 (09:00→20:20)
[2016-06-24] MEDS: SODIUM CHLORIDE 0.9% FLUSH 10 ML FLUSH IV FLUSH SCH (09:00)
[2016-06-24] MEDS: SENNOSIDES 8.6 MG TAB PO SCH (09:00)
[2016-06-24] MEDS ORDERED: IOHEXOL 350 MG/ML 10 ML VIAL (for RAD DIAG) ONE (09:14)
[2016-06-24 09:17] VITALS: BP 130/76
[2016-06-24] MEDS: MORPHINE SULFATE 15 MG CONTROLLED RELEASE TAB PO SCH ×2 (10:05→20:19)
[2016-06-24] MEDS: ATENOLOL 25 MG TAB PO SCH (10:05)
[2016-06-24] MEDS: LINEZOLID 600 MG TAB PO SCH ×2 (10:05→20:19)
[2016-06-24] MEDS: CLARITHROMYCIN 500 MG TAB PO SCH ×2 (10:05→20:19)
--- NOTE | 2016-06-24 13:06 | RADHPO ---
EXAM DATE/TIME: 06/24/2016 08:48 [facility] COMPARISON: CT THORACIC SPINE W/O CONTRAST, June 02, 2016, 20:27. INDICATIONS : Evaluate abscess; increased back pain, discitis,osteomylitis. IV CONTRAST: 80 cc Omnipaque 350 (iohexol) IV RADIATION DOSE: 22.55 CTDIvol (mGy) MEDICAL HISTORY : Hepatitis C. SURGICAL HISTORY : Back fusions. ENCOUNTER: Subsequent ACUITY: 3 weeks PAIN SCALE: 8/10 LOCATION: Bilateral Thoracic TECHNIQUE: Volumetric scanning of the thoracic spine was performed. Multiplanar reconstructions in the sagittal , coronal and oblique axial planes were performed. Using automated exposure control and adjustment o f the mA and/or kV according to patient size, radiation dose was kept as low as reasonably achievable to obtain optimal diagnostic quality images. FINDINGS: Kyphosis of the thoracic spine again seen. Extensive destructive lytic changes again seen at T5 and severe loss of height again noted T6. Extensive sclerosis again seen at T7 with prominent lucency katja ng the inferior endplate. Lucency again noted along the inferior endplate at T5. Deformity and bridgi ng along the anterior vertebral bodies at T8-T10. Anterior paraspinal soft tissue thickening has impr elmer. The right lower lobe density which connects to the paraspinal abnormality is also less prominen t. Postsurgical changes with laminectomy T3-T9. No other significant areas of canal stenosis noted. CONCLUSION: 1. There has been significant improvement with decrease in soft tissue prominence in the paraspinal r egion and right lower lobe. 2. The changes at T5-T7 are unchanged. Roni Dominique MD on June 24, 2016 at 12:58 Board Certified Radiologist. This report was verified electronically.
[2016-06-24] MEDS: SODIUM CHLORIDE 0.9% FLUSH 10 ML FLUSH IVF SCH (13:23)
[2016-06-24] MEDS: cefTRIAXone 2,000 MG VIAL IV SCH (13:25)
--- NOTE | 2016-06-24 13:58 | HHI.PR ---
Subjective Remarks Patient seen and examined today for follow-up on paraspinal abscess, osteomyelitis, discitis. Patient states that he is still having significant amount of back pain. He is also asking if she can go outside. I discussed with him that he is been refusing to get out of bed, refusing physical therapy. We are waiting CT scan of the thoracic spine to evaluate for any worsening. Objective Vitals Vital Signs Date Time Temp Pulse Resp B/P Pulse Ox O2 Delivery O2 Flow Rate FiO2 06/24/16 13:46 18 06/24/16 11:05 18 06/24/16 09:17 130/76 06/24/16 08:45 80 18 06/23/16 20:00 99.5 100 20 127/76 96 I/O 06/23/16 06/23/16 06/23/16 06/24/16 06/24/16 06/24/16 06:59 14:59 22:59 06:59 14:59 22:59 Intake Total 120 ml 400 ml 1340 ml 120 ml Output Total 475 ml 350 ml 325 ml 1300 ml Balance -355 ml 400 ml 990 ml -205 ml -1300 ml Intake Oral 120 ml 400 ml 1340 ml 120 ml Output Urine Total 475 ml 350 ml 325 ml 1300 ml # Voids 4 Objective Remarks GENERAL: Well-developed, cachectic, in no acute distress. alert and orientated HEENT: Head is normocephalic without any lesions or masses noted. Facial features are symmetric. Eyes: Extraocular muscles are intact. Conjunctivae were clear. NECK: Supple without any masses. Trachea midline no deviation. No JVD, CARDIAC: Regular rhythm, regular rate. S1/S2 are heard. No murmurs gallops or rubs. LUNGS: Clear to auscultation bilaterally. No wheeze, rhonchi or rales. No use of accessory muscles on inspiration or expiration. ABDOMEN: Soft, nontender. Nondistended. Bowel sounds heard in all 4 quadrants. No organomegaly or masses. Negative rebound, negative guarding EXTREMITIES: No edema, pulses are equal bilaterally. No cyanosis or clubbing NEUROLOGY: Mood and affect appear appropriate. Cranial nerves II through XII grossly intact. Moving all extremities, speech is clear Procedures T4-5 decompressive laminectomy, evacuation epidural abscess and granulation tissue 05/25/16 Dr. Pickard Evacuation thoracic paraspinous abscess 05/25/16 Dr. Melly Lindsay chest wall aspiration 06/01/16 Urinary Catheter: No Vascular Central Line Catheter: Yes Assessment to: Continue Date of Insertion: Jun 05, 2016 Line: Central Venous Catheter (Caro catheter) Side: Right Location: Jugular A/P Assessment and Plan Multiple infections: Paraspinal abscess, discitis, osteomyelitis, right lung consolidation, epidural abscess, bacteremia Thoracic spine MRI with extensive bilateral paraspinal abscess, discitis, osteomyelitis, right lung consolidation, epidural abscess S/p T4-5 decompressive laminectomy, evacuation epidural abscess and granulation tissue and evacuation thoracic paraspinous abscess on 05/25/16. 3/ blood cultures grew MSSA. Repeat blood cultures 06/14/16 are negative. Expectorated sputum, fluid culture, and back wound all with MSSA. Infectious disease evaluated the patient and made recommendations Rocephin 2 g IV with end date 07/19/16, then chronic suppression with Keflex 500 twice daily or dicloxacillin 500 mg twice daily Weekly labs while on IV antibiotics 06/23 patient indicates pain is worsening, will reconsult PT, will contact Dr. Pickard for further recommendations 06/[address] scan of the thoracic spine show significant improvement with decrease in soft tissue prominence. Paraspinal abnormality is less prominent. 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, patient does not indicate that he underwent any management Infectious disease recommending HIV reflex testing which was was negative, started on Biaxin and Zyvox Repeat cultures are negative for 5 days Pain control, try to avoid any medication that can be crushed and injected Reviewed E force in which the patient was prescribed oxycodone 10 mg 3 times a day in outpatient setting Oramorph Sr 15 mg q12h Percocet 10/325 po Q 6 hrs prn pain 6-10 Tramadol 25 mg every 6 hours as needed for pain 15 Robaxin 750 mg every 8 hours Left Shoulder pain: X-ray did not indicate any acute abnormality Anemia: Stable Follow CBC. Transfuse if Hb < 7.0 Hypokalemia: Hypocalcemia:Hyponatremia: Monitor BMP. Hyperglycemia: Blood sugar was elevated on admission. Likely a stress reaction. Hemoglobin A1c 5.3%. Blood glucose checks were discontinued IV drug abuse: Patient still with Drug seeking behavior. On 06/14 patient was noted by nurse to be crushing meds and placing in IV line with milk. ID and surgery were notified. Cessation instruction. Discontinue Dilaudid, avoid any medication that can be crushed and injected Nicotine dependence The patient smokes 5 cigarettes daily. Cessation instruction given. DVT Prophylaxis: Lovenox. Discharge Planning Discharge planning once patient finished IV antibiotics Jeremi Coombs June 24, 2016 13:58
[2016-06-24] MEDS: ENOXAPARIN SODIUM 40 MG/0.4 ML SYRINGE SQ SCH (16:00)
[2016-06-24 20:00] VITALS: BP 131/78; PULSE 72; RESP 16; TEMP 97.8; O2SAT 97
[2016-06-25] MEDS: oxyCODONE/ACETAMINOPHEN 10 MG/325 MG TAB PO PRN ×6 (01:25→21:32)
[2016-06-25] MEDS: METHOCARBAMOL 500 MG TAB PO PRN ×3 (01:27→17:32)
[2016-06-25] MEDS: SODIUM CHLORIDE 0.9% FLUSH 10 ML FLUSH IV FLUSH SCH (09:00)
[2016-06-25] MEDS: DOCUSATE SODIUM 100 MG CAP PO SCH ×2 (09:00→20:19)
[2016-06-25] MEDS: SODIUM CHLORIDE 0.9% FLUSH 10 ML FLUSH IVF SCH (09:00)
[2016-06-25] MEDS: SODIUM CHLORIDE 0.9% FLUSH 5 ML FLUSH IVF SCH ×2 (09:00→20:21)
[2016-06-25] MEDS: SENNOSIDES 8.6 MG TAB PO SCH (09:00)
[2016-06-25] MEDS: FERROUS SULFATE 325 MG (65 MG ELEMENTAL IRON) TAB PO SCH (09:00)
--- NOTE | 2016-06-25 09:15 | HHI.PR ---
Subjective Remarks Patient seen and examined today in follow up on paraspinal abscess, discitis, osteomyelitis. Patient states that he still is in significant amount of pain is requesting to be given more pain medicine so he can become more mobile. I notified the patient of the CT results that they have significantly improved. That he needs to become more active, mobilize more in order to reduce the pain that he is experiencing. He did work with physical therapy yesterday and he walked to 110 feet with standby assist with wheeled walker. Physical therapy recommending home with no PT recommendations Objective Vitals Vital Signs Date Time Temp Pulse Resp B/P Pulse Ox O2 Delivery O2 Flow Rate FiO2 06/25/16 06:27 16 06/24/16 21:19 16 06/24/16 20:00 97.8 72 16 131/78 97 06/24/16 09:17 130/76 I/O 06/24/16 06/24/16 06/24/16 06/25/16 06/25/16 06/25/16 07:00 15:00 23:00 07:00 15:00 23:00 Intake Total 120 ml 480 ml 480 ml 480 ml Output Total 325 ml 1300 ml 650 ml 800 ml Balance -205 ml -820 ml -170 ml -320 ml Intake Oral 120 ml 480 ml 480 ml 480 ml Output Urine Total 325 ml 1300 ml 650 ml 800 ml # Voids 2 1 # Bowel Movements 0 0 0 Objective Remarks GENERAL: Well-developed, cachectic, in no acute distress. alert and orientated HEENT: Head is normocephalic without any lesions or masses noted. Facial features are symmetric. Eyes: Extraocular muscles are intact. Conjunctivae were clear. NECK: Supple without any masses. Trachea midline no deviation. No JVD, CARDIAC: Regular rhythm, regular rate. S1/S2 are heard. No murmurs gallops or rubs. LUNGS: Clear to auscultation bilaterally. No wheeze, rhonchi or rales. No use of accessory muscles on inspiration or expiration. ABDOMEN: Soft, nontender. Nondistended. Bowel sounds heard in all 4 quadrants. No organomegaly or masses. Negative rebound, negative guarding EXTREMITIES: No edema, pulses are equal bilaterally. No cyanosis or clubbing NEUROLOGY: Mood and affect appear appropriate. Cranial nerves II through XII grossly intact. Moving all extremities, speech is clear Procedures T4-5 decompressive laminectomy, evacuation epidural abscess and granulation tissue 05/25/16 Dr. Pickard Evacuation thoracic paraspinous abscess 05/25/16 Dr. Pickard R chest wall aspiration 06/01/16 Urinary Catheter: No Vascular Central Line Catheter: Yes Assessment to: Continue Date of Insertion: Jun 05, 2016 Line: Central Venous Catheter (Caro catheter) Side: Right Location: Jugular A/P Assessment and Plan Multiple infections: Paraspinal abscess, discitis, osteomyelitis, right lung consolidation, epidural abscess, bacteremia Thoracic spine MRI with extensive bilateral paraspinal abscess, discitis, osteomyelitis, right lung consolidation, epidural abscess S/p T4-5 decompressive laminectomy, evacuation epidural abscess and granulation tissue and evacuation thoracic paraspinous abscess on 05/25/16. 04/15 blood cultures grew MSSA. Repeat blood cultures 06/14/16 are negative. Expectorated sputum, fluid culture, and back wound all with MSSA. Infectious disease evaluated the patient and made recommendations Rocephin 2 g IV with end date 07/19/16, then chronic suppression with Keflex 500 twice daily or dicloxacillin 500 mg twice daily Weekly labs while on IV antibiotics 06/23 patient indicates pain is worsening, will reconsult PT, will contact Dr. Pickard for further recommendations. Patient refused work with PT 06/[address] scan of the thoracic spine show significant improvement with decrease in soft tissue prominence. Paraspinal abnormality is less prominent. Physical therapy did evaluate the patient and is indicated that he is independent with transferring, walking 110 feet with standby assist. 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, patient does not indicate that he underwent any management Infectious disease recommending HIV reflex testing which was was negative, started on Biaxin and Zyvox Repeat cultures are negative for 5 days Pain control, try to avoid any medication that can be crushed and injected Reviewed E force in which the patient was prescribed oxycodone 10 mg 3 times a day in outpatient setting Oramorph Sr 15 mg q12h Percocet 10/325 po Q 6 hrs prn pain 6-10 Tramadol 25 mg every 6 hours as needed for pain 15 Robaxin 750 mg every 8 hours Left Shoulder pain: X-ray did not indicate any acute abnormality Anemia: Stable Follow CBC. Transfuse if Hb < 7.0 Hypokalemia: Hypocalcemia:Hyponatremia: Monitor BMP. Hyperglycemia: Blood sugar was elevated on admission. Likely a stress reaction. Hemoglobin A1c 5.3%. Blood glucose checks were discontinued IV drug abuse: Patient still with Drug seeking behavior. On 06/14 patient was noted by nurse to be crushing meds and placing in IV line with milk. ID and surgery were notified. Cessation instruction. Discontinue Dilaudid, avoid any medication that can be crushed and injected Nicotine dependence The patient smokes 5 cigarettes daily. Cessation instruction given. DVT Prophylaxis: Lovenox. Discharge Planning Discharge planning once patient finished IV antibiotics Jeremi Coombs June 25, 2016 09:15
[2016-06-25 09:26] VITALS: BP 121/84; PULSE 83; RESP 17; TEMP 96.1; O2SAT 96
[2016-06-25] MEDS: LINEZOLID 600 MG TAB PO SCH ×2 (09:34→20:20)
[2016-06-25] MEDS: CLARITHROMYCIN 500 MG TAB PO SCH ×2 (09:35→20:18)
[2016-06-25] MEDS: ATENOLOL 25 MG TAB PO SCH (09:35)
[2016-06-25] MEDS: MORPHINE SULFATE 15 MG CONTROLLED RELEASE TAB PO SCH ×2 (10:38→20:20)
[2016-06-25] MEDS: cefTRIAXone 2,000 MG VIAL IV SCH (13:12)
[2016-06-25] MEDS: ENOXAPARIN SODIUM 40 MG/0.4 ML SYRINGE SQ SCH (16:00)
[2016-06-25 20:00] VITALS: BP 116/67; PULSE 86; RESP 16; TEMP 97.1; O2SAT 94
[2016-06-26] MEDS: METHOCARBAMOL 500 MG TAB PO PRN ×2 (01:35→10:08)
[2016-06-26] MEDS: oxyCODONE/ACETAMINOPHEN 10 MG/325 MG TAB PO PRN ×3 (01:35→10:09)
[2016-06-26] MEDS ORDERED: ALTEPLASE RECOMBINANT 2 MG VIAL INTRACATH ONE (08:00)
[2016-06-26 09:00] VITALS: BP 128/97; PULSE 79; RESP 18; TEMP 96.8; O2SAT 99
[2016-06-26] MEDS: SODIUM CHLORIDE 0.9% FLUSH 5 ML FLUSH IVF SCH (09:00)
[2016-06-26] MEDS: SENNOSIDES 8.6 MG TAB PO SCH (09:00)
[2016-06-26] MEDS: DOCUSATE SODIUM 100 MG CAP PO SCH (09:00)
[2016-06-26] MEDS: LINEZOLID 600 MG TAB PO SCH (10:09)
[2016-06-26] MEDS: CLARITHROMYCIN 500 MG TAB PO SCH (10:09)
[2016-06-26] MEDS: FERROUS SULFATE 325 MG (65 MG ELEMENTAL IRON) TAB PO SCH (10:10)
[2016-06-26] MEDS: ATENOLOL 25 MG TAB PO SCH (10:10)
[2016-06-26] MEDS: MORPHINE SULFATE 15 MG CONTROLLED RELEASE TAB PO SCH (10:10)
[2016-06-26] MEDS: SODIUM CHLORIDE 0.9% FLUSH 10 ML FLUSH IVF SCH (10:11)
[2016-06-26] MEDS: SODIUM CHLORIDE 0.9% FLUSH 10 ML FLUSH IV FLUSH SCH (10:11)
[2016-06-26] MEDS: ENOXAPARIN SODIUM 40 MG/0.4 ML SYRINGE SQ SCH (10:13)
[2016-06-26 10:51] LABS: AUTOMATED NEUTROPHIL # 2.2 TH/MM3 (1.8-7.7); BASOPHIL # 0.2 TH/MM3 (0-0.2); BASOPHIL % 4.5 % (0.0-2.0); EOSINOPHIL # 0.1 TH/MM3 (0-0.4); HEMATOCRIT 27.3 % (39.0-51.0); LYMPH % 35.4 % (9.0-44.0); LYMPHOCYTE # 1.6 TH/MM3 (1.0-4.8); MEAN CELL VOLUME 69.3 FL (80.0-100.0); MEAN CORPUSCULAR HEMOGLOBIN 22.3 PG (27.0-34.0); MEAN CORPUSCULAR HGB CONC 32.2 % (32.0-36.0); MONO % 6.3 % (0.0-8.0); NEUT % 50.8 % (16.0-70.0); PLATELET COUNT 201 TH/MM3 (150-450); RED BLOOD COUNT 3.94 MIL/MM3 (4.50-5.90); RED CELL DISTRIBUTION WIDTH 19.4 % (11.6-17.2); WHITE BLOOD COUNT 4.4 TH/MM3 (4.0-11.0)
[2016-06-26 11:01] LABS: HEMO FLAGS AUTO DIFF
[2016-06-26 11:26] LABS: SCAN/DIFF AUTO DIFF CONFIRMED; TEARDROP RBCS 1+ (NORMAL)
[2016-06-26] MEDS: cefTRIAXone 2,000 MG VIAL IV SCH (11:32)
[2016-06-26 11:51] LABS: CHLORIDE 102 MEQ/L (98-107); POTASSIUM 4.4 MEQ/L (3.5-5.1); SODIUM (NA) 136 MEQ/L (136-145)
[2016-06-26 11:53] LABS: WESTERGREN SEDIMENTATION RATE 1 mm/hr (0-15)
[2016-06-26 11:54] LABS: ANION GAP 7 MEQ/L (5-15); BICARBONATE 26.8 MEQ/L (21.0-32.0)
[2016-06-26 11:55] LABS: BLOOD UREA NITROGEN 15 MG/DL (7-18)
[2016-06-26 11:57] LABS: ALT (GPT) 34 U/L (12-78); AST (GOT) 15 U/L (15-37)
[2016-06-26 11:58] LABS: GLOMERULAR FILTRATION RATE 89 ML/MIN (>89)
[2016-06-26 11:59] LABS: TOTAL BILIRUBIN ADULT 0.2 MG/DL (0.2-1.0)
[2016-06-26 12:00] LABS: ALKALINE PHOSPHATASE 141 U/L (45-117)
--- NOTE | 2016-06-26 13:11 | HHI.PR ---
Subjective Remarks Patient seen and examined today for follow-up on osteomyelitis, paraspinal abscess, discitis. Patient has always is lying in bed complaining of worsening pain. Reviewed CT scan results with the patient and notified him that results are significantly better. Discussed with him that physical therapy did reevaluate him and he was walking 110 feet with standby assist while using front wheel walker. Nursing staff indicated that Caro catheter was not functioning this morning needed to have Cath Flow, hopefully the patient is continuing to inject while in the hospital Objective Vitals Vital Signs Date Time Temp Pulse Resp B/P Pulse Ox O2 Delivery O2 Flow Rate FiO2 06/26/16 09:00 96.8 79 18 128/97 99 06/26/16 02:35 16 06/25/16 21:20 16 06/25/16 20:00 97.1 86 16 116/67 94 I/O 06/25/16 06/25/16 06/25/16 06/26/16 06/26/16 06/26/16 06:59 14:59 22:59 06:59 14:59 22:59 Intake Total 480 ml 240 ml 1200 ml 480 ml 100 ml Output Total 800 ml 1200 ml 1050 ml 550 ml Balance -320 ml -960 ml 150 ml -70 ml 100 ml Intake Oral 480 ml 240 ml 1200 ml 480 ml 100 ml Output Urine Total 800 ml 1200 ml 1050 ml 550 ml # Bowel Movements 0 1 0 0 Result Diagram: 06/26/16 1044 06/26/16 1044 Objective Remarks GENERAL: Well-developed, cachectic, in no acute distress. alert and orientated HEENT: Head is normocephalic without any lesions or masses noted. Facial features are symmetric. Eyes: Extraocular muscles are intact. Conjunctivae were clear. NECK: Supple without any masses. Trachea midline no deviation. No JVD, CARDIAC: Regular rhythm, regular rate. S1/S2 are heard. No murmurs gallops or rubs. LUNGS: Clear to auscultation bilaterally. No wheeze, rhonchi or rales. No use of accessory muscles on inspiration or expiration. ABDOMEN: Soft, nontender. Nondistended. Bowel sounds heard in all 4 quadrants. No organomegaly or masses. Negative rebound, negative guarding EXTREMITIES: No edema, pulses are equal bilaterally. No cyanosis or clubbing NEUROLOGY: Mood and affect appear appropriate. Cranial nerves II through XII grossly intact. Moving all extremities, speech is clear Procedures T4-5 decompressive laminectomy, evacuation epidural abscess and granulation tissue 05/25/16 Dr. Pickard Evacuation thoracic paraspinous abscess 05/25/16 Dr. Pickard R chest wall aspiration 06/01/16 Urinary Catheter: No Vascular Central Line Catheter: Yes Assessment to: Continue Date of Insertion: Jun 05, 2016 Line: Central Venous Catheter (Caro catheter) Side: Right Location: Jugular A/P Assessment and Plan Multiple infections: Paraspinal abscess, discitis, osteomyelitis, right lung consolidation, epidural abscess, bacteremia Thoracic spine MRI with extensive bilateral paraspinal abscess, discitis, osteomyelitis, right lung consolidation, epidural abscess S/p T4-5 decompressive laminectomy, evacuation epidural abscess and granulation tissue and evacuation thoracic paraspinous abscess on 05/25/16. 04/15 blood cultures grew MSSA. Repeat blood cultures 06/14/16 are negative. Expectorated sputum, fluid culture, and back wound all with MSSA. Infectious disease evaluated the patient and made recommendations Rocephin 2 g IV with end date 07/19/16, then chronic suppression with Keflex 500 twice daily or dicloxacillin 500 mg twice daily Weekly labs while on IV antibiotics 06/23 patient indicates pain is worsening, will reconsult PT, will contact Dr. Pickard for further recommendations. Patient refused work with PT 06/[address] scan of the thoracic spine show significant improvement with decrease in soft tissue prominence. Paraspinal abnormality is less prominent. Physical therapy did evaluate the patient and is indicated that he is independent with transferring, walking 110 feet with standby assist. 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, patient does not indicate that he underwent any management Infectious disease recommending HIV reflex testing which was was negative, started on Biaxin and Zyvox Repeat cultures are negative for 5 days Pain control, try to avoid any medication that can be crushed and injected Reviewed E force in which the patient was prescribed oxycodone 10 mg 3 times a day in outpatient setting Oramorph Sr 15 mg q12h, as pain improved with use of Neurontin will anticipate discontinuing Oramorph Percocet 10/325 po Q 4 hrs prn pain 6-10, changed to 10/325 every 6 hours, continue to wean until every 8 hours Tramadol 25 mg every 6 hours as needed for pain 15 Robaxin 750 mg every 8 hours Start Neurontin 100 mg 3 times daily continue to titrate up until pain controlled Left Shoulder pain: X-ray did not indicate any acute abnormality Anemia: Stable Follow CBC. Transfuse if Hb < 7.0 Hypokalemia: Hypocalcemia:Hyponatremia: Monitor BMP. Hyperglycemia: Blood sugar was elevated on admission. Likely a stress reaction. Hemoglobin A1c 5.3%. Blood glucose checks were discontinued IV drug abuse: Patient still with Drug seeking behavior. On 06/14 patient was noted by nurse to be crushing meds and placing in IV line with milk. ID and surgery were notified. Cessation instruction. Discontinue Dilaudid, avoid any medication that can be crushed and injected Nicotine dependence The patient smokes 5 cigarettes daily. Cessation instruction given. DVT Prophylaxis: Patient refusing Lovenox. Discharge Planning Discharge planning once patient finished IV antibiotics Jeremi Coombs June 26, 2016 13:11
[2016-06-26] MEDS ORDERED: GABAPENTIN 100 MG CAP PO SCH (14:00)
--- NOTE | 2016-06-26 14:51 | HHI.DS ---
Discharge Summary Admission Date May 24, 2016 at 02:45 Discharge Date: June 26, 2016 Admitting Diagnosis Epidural abscess, vertebral osteomyelitis (1) Fever ICD Code: R50.9 (2) Osteomyelitis ICD Code: M86.9 (3) Epidural abscess ICD Code: G06.2 (4) Cellulitis ICD Code: L03.90 (5) Paraspinal abscess ICD Code: M46.20 Procedures T4-5 decompressive laminectomy, evacuation epidural abscess and granulation tissue 05/25/16 Dr. Pickard Evacuation thoracic paraspinous abscess 05/25/16 Dr. Pickard R chest wall aspiration 06/01/16 Brief History - From Admission The patient is a 41-year-old male with a past medical history of IV drug abuse, osteomyelitis, back abscess and pulmonary abscess who is presenting to the hospital as a transfer for multiple infections. The patient says that about 3 months ago he was admitted to [facility] where he received treatment for collapsed lungs including chest tubes and a back abscess requiring drainage. He said he completed one and a half months of IV antibiotics in the hospital and one and a half months of IV antibiotics post hospitalization. Per the patient he was supposed to be on 3 months of oral antibiotics but was not discharged on that. He says 3 weeks ago he came down with a cough and phlegm production. He said the phlegm was clear. He was not too worried about it. He denied any fevers. About 4-5 days ago he said the sputum turned a milky brown in color. Back concerned him. He has been having fevers up to 102. He has been feeling cold at night. He has been having a lot of pain from coughing so much. He went to [facility] yesterday and was sent here for further treatment. He states that he was an IV drug user and quit 6 months ago. His drug of choice was Dilaudid. He says at this time his cough is improved. CBC/BMP: 06/26/16 1044 06/26/16 1044 Significant Findings Laboratory Tests Test 06/26/16 10:44 Red Blood Count 3.94 MIL/MM3 (4.50-5.90) Hemoglobin 8.8 GM/DL (13.0-17.0) Hematocrit 27.3 % (39.0-51.0) Mean Corpuscular Volume 69.3 FL (80.0-100.0) Mean Corpuscular Hemoglobin 22.3 PG (27.0-34.0) Red Cell Distribution Width 19.4 % (11.6-17.2) Basophils (%) (Auto) 4.5 % (0.0-2.0) Tear Drop Cells 1+ (NORMAL) Calcium Level 7.9 MG/DL (8.5-10.1) Alkaline Phosphatase 141 U/L (45-117) C-Reactive Protein 3.30 MG/DL (0.00-0.30) Albumin 2.0 GM/DL (3.4-5.0) Imaging Last Impressions Thoracic Spine CT 06/24/16 0000 Signed Impressions: Service Date/Time: Friday, June 24, 2016 08:48 - CONCLUSION: 1. There has been significant improvement with decrease in soft tissue prominence in the paraspinal region and right lower lobe. 2. The changes at T5-T7 are unchanged. Roni Dominique MD Shoulder X-Ray 06/15/16 0000 Signed Impressions: Service Date/Time: June 13:55 - CONCLUSION: Mild soft tissue swelling superficial to the acromioclavicular joint. Otherwise, no left shoulder abnormality is identified. Roshan Galvez MD Catheter Placement X-Ray 06/05/16 0000 Signed Impressions: Service Date/Time: Sunday, June 05, 2016 10:50 - CONCLUSION: Uncomplicated Caro catheter placement as above. Chest wall cerclage stitch can be removed in approximately 10-14 days Valentin Narvaez MD Joint Aspiration/Injection 06/01/16 0000 Signed Impressions: Service Date/Time: May 16:59 - CONCLUSION: Uncomplicated aspiration as above. Valentin Narvaez MD Chest X-Ray 05/25/16 0000 Signed Impressions: Service Date/Time: May 22:46 - CONCLUSION: Mild vascular congestion and bibasilar atelectasis. Roshan Jain MD Thoracic Spine MRI 05/24/16 0000 Signed Impressions: Service Date/Time: Tuesday, May 24, 2016 10:40 - CONCLUSION: 1. There is extensive bilateral paraspinal abscess extending from approximately T3-T9. The abnormality appears to be centered at the T5 level where there is vertebral body height loss and fluid and enhancement in the adjacent disc spaces suggesting discitis osteomyelitis. A portion of the abnormal fluid collection extends posteriorly on the left at C5-C6. 2. The right lower lobe airspace consolidation has a connection with the adjacent right paraspinal abscess. 3. No spinal canal stenosis is identified. There is mild epidural enhancement in the anterior epidural space at T5-T7 but no epidural abscess is appreciated. Roshan Galvez MD Lumbar Spine MRI 05/24/16 0000 Signed Impressions: Service Date/Time: Tuesday, May 24, 2016 10:40 - CONCLUSION: Significant change from prior exam. No definite acute findings. See above discussion. Roshan Jain MD Chest CT 05/24/16 0000 Signed Impressions: Service Date/Time: Tuesday, May 24, 2016 10:21 - CONCLUSION: 1. Abnormal bilateral paraspinal fluid collection extending from approximately T3-T8. The appearance is highly suggestive of a paraspinal abscess. 2. Focal air space consolidation in the medial right lower lobe abutting the paraspinal process. This likely represents focal lung infection with possible central necrosis. 3. Abnormal appearance of the kidneys suggesting interstitial nephritis or ATN. 4. Partially visualized upper abdomen suggests retroperitoneal lymphadenopathy. Roshan Galvez MD PE at Discharge GENERAL: Well-developed, cachectic, in no acute distress. alert and orientated HEENT: Head is normocephalic without any lesions or masses noted. Facial features are symmetric. Eyes: Extraocular muscles are intact. Conjunctivae were clear. NECK: Supple without any masses. Trachea midline no deviation. No JVD, CARDIAC: Regular rhythm, regular rate. S1/S2 are heard. No murmurs gallops or rubs. LUNGS: Clear to auscultation bilaterally. No wheeze, rhonchi or rales. No use of accessory muscles on inspiration or expiration. ABDOMEN: Soft, nontender. Nondistended. Bowel sounds heard in all 4 quadrants. No organomegaly or masses. Negative rebound, negative guarding EXTREMITIES: No edema, pulses are equal bilaterally. No cyanosis or clubbing NEUROLOGY: Mood and affect appear appropriate. Cranial nerves II through XII grossly intact. Moving all extremities, speech is clear Hospital Course 41-year-old male with known history of IV drug use, osteomyelitis, back abscess , pulmonary abscess who originally presented to hospital as a transfer for multiple infections. Patient originally was seen 3 months ago as [facility] or he received treatment for collapsed lung, chest tubes and back abscess required drainage. He completed IV antibiotics in the hospital that time and continue antibiotics after hospitalization. As indicated that he was supposed to be on 3 month of oral antibiotics upon discharge however he did not receive that. The patient developed upper respiratory symptoms started having fever of 102. He had significant amount of pain with cough so he presented to the [facility] and was sent to [place] for further treatment. The patient indicates that he was an IV drug user and quit 6 months prior to coming to the hospital. His drug of choice was Dilaudid. Patient had initial workup performed which did show a thoracic paraspinal abscess, thoracic osteomyelitis, lumbar discitis. Patient underwent surgical intervention by Dr. Bedoya with T4-T5 depression laminectomy, evacuation of epidural abscess and granulation tissue. Evacuation thoracic paraspinal abscess. Patient had consultation done by infectious disease. Patient was not septic appearing upon presentation no initial antibiotics was recommended by infectious disease. Our patient did develop staph aureus bacteremia, culture from his back wound also showed staph aureus, sputum culture with staph aureus. Patient was started on IV antibiotics with Rocephin and is recommended she would need a 8 week course of antibiotics until July 19 and then chronic suppression with Keflex or dicloxacillin indefinitely. Patient was on pain medications at the [facility] when documentation indicates that the patient was witnessed injecting drugs into his Caro catheter. Patient was counseled against continuation of drug use. The patient was recommended transfer to [place] for continued management due to the patient's long-term care and need to be hospitalized for management of his condition with his high risk lifestyle. Patient continued drug-seeking behavior manipulation in [place]. Did discuss with Dr. Pickard, he indicates that the patient was injecting himself with Dilaudid at the [facility] and would prefer that the patient be off of Dilaudid if possible. The patient indicated that he was using Dilaudid on a street and wants to continue to use it. He indicates that he had pain management doctor who is prescribing the medication. However, I searched [facility] and he is never prescribed Dilaudid. It indicates that his last prescription was on 04/13/16 from a physician in [place] for oxycodone 10 mg times daily. The patient complained of worsening pain of his thoracic spine and difficulty with ambulation or movement. Repeat CT scan was performed with IV contrast which did show significant improvement of his condition. Physical therapy did evaluate the patient and it was indicated that he was walking 110 feet with standby assist with rolling walker, that he is able to transfer and function without any assistance. Nursing staff indicates that the patient is manipulative and demanding about pain medication. He would turn on the call light for hours at a time demanding more pain medication. Pain management was continued with extended morphine 15 mg twice daily, Robaxin 750 mg every 8 hours , tramadol 25 mg as needed, Percocet 10/325 as needed for pain was continued. Pain management was adjusted today with the addition of gabapentin 100 mg 3 times daily for improved pain management, Percocet 10/325 was adjusted to every 6 hours. Because the Percocet was adjusted. Patient became very angered, demanding, manipulative with the nursing staff. He stated that he will not stay in this hospital. He did sign himself out AGAINST MEDICAL ADVICE. The patient does have a Caro catheter, radiology was called to discuss with them the proper procedure to have it removed. However, the patient left the hospital without having the catheter removed. This is very concerning in a patient with high risk behavior. We'll discuss with charge nurse, MedSurg manager life and likely risk management. Local Police were called and notified. Pt Condition on Discharge: Guarded Discharge Disposition: Discharge Home Discharge Time: <= 30 minutes Jeremi Coombs June 26, 2016 14:51
[2016-06-26] MEDS ORDERED: oxyCODONE/ACETAMINOPHEN 10 MG/325 MG TAB PO PRN (18:00)
== END 2016-06-26 14:32 | disposition left against medical advice (07) | DRG 853 ==
LOC: NEPC 02:10 → NEDA 02:45 → N05A 06:20 → PH5A 06-17 14:50
PROVIDERS: ADMIT Family Medicine; ATTEND Family Medicine
PROC: 009U00Z Drainage of Spinal Canal with Drainage Device, Open Approach (ICD-10-PCS; 2016-05-25)
PROC: 00NX0ZZ Release Thoracic Spinal Cord, Open Approach (ICD-10-PCS; principal; 2016-05-25 18:13)
PROC: 02HV33Z Insertion of Infusion Device into Superior Vena Cava, Percutaneous Approach (ICD-10-PCS; 2016-06-01)
PROC: B513ZZA Fluoroscopy of Right Jugular Veins, Guidance (ICD-10-PCS; 2016-06-01)
PROC: 0W983ZX Drainage of Chest Wall, Percutaneous Approach, Diagnostic (ICD-10-PCS; 2016-06-02)
PROC: 02HV33Z Insertion of Infusion Device into Superior Vena Cava, Percutaneous Approach (ICD-10-PCS; 2016-06-05)
PROC: B513ZZA Fluoroscopy of Right Jugular Veins, Guidance (ICD-10-PCS; 2016-06-05)
DX: A41.01 Sepsis due to Methicillin susceptible Staphylococcus aureus (principal); G06.1 Intraspinal abscess and granuloma; J85.2 Abscess of lung without pneumonia; J18.9 Pneumonia, unspecified organism; D70.9 Neutropenia, unspecified; I50.9 Heart failure, unspecified; M46.24 Osteomyelitis of vertebra, thoracic region; E87.1 Hypo-osmolality and hyponatremia; Z68.1 Body mass index [BMI] 19.9 or less, adult; G62.9 Polyneuropathy, unspecified; R63.4 Abnormal weight loss; R73.9 Hyperglycemia, unspecified; D64.9 Anemia, unspecified; R00.0 Tachycardia, unspecified; R32 Unspecified urinary incontinence; M46.44 Discitis, unspecified, thoracic region; Z59.0 Homelessness; E87.6 Hypokalemia; E83.51 Hypocalcemia; M25.511 Pain in right shoulder; M25.512 Pain in left shoulder; F17.210 Nicotine dependence, cigarettes, uncomplicated; F19.10 Other psychoactive substance abuse, uncomplicated; Z76.5 Malingerer [conscious simulation]; Z86.61 Personal history of infections of the central nervous system
CPT/HCPCS: 10160; 36558; 71010; 71260; 72128; 72129; 72157; 72158; 73030; 76000; 76937; 76942; 77001; 80048; 80053; 80076; 80202; 80307; 81001; 82607; 82728; 82746; 82948; 83036; 83540; 83550; 83735; 84155; 85007; 85014; 85018; 85025; 85027; 85379; 85384; 85610; 85652; 85730; 86140; 86403; 86703; 87015; 87040; 87070; 87102; 87116; 87147; 87186; 87205; 87206; 87449; 93306; 94150; 94640; 94664; 99152; 99153; 99285; A9579; C1751; C1769; E0113; J0131; J0610; J0690; J0696; J1170; J1580; J1642; J1650; J1815; J2060; J2250; J2370; J2405; J2997; J3010; J3370; J3475; J3480; J7050; J7120; L0200; L0484; Q9967

== ENCOUNTER 2016-07-03 22:15 | Inpatient (IN) | payer MEDICAID ==
[~2016-07-03] VITALS: Ht 167.6 cm; Wt 50.8 kg
[2016-07-03 22:19] VITALS: BP 119/82; PULSE 104; RESP 16; TEMP 97.1; O2SAT 98
[2016-07-03 22:32] VITALS: BP 119/80; PULSE 92; RESP 18; TEMP 98.6; O2SAT 100
[2016-07-03] MEDS ORDERED: cefTRIAXone INJ 1,000 MG in SODIUM CHLORIDE 0.9% INJ 100 ML IV ONE (23:00)
--- NOTE | 2016-07-03 23:15 | PD ---
HPI Chief Complaint: Pain: Acute or Chronic Time Seen by Provider: 22:35 Travel History International Travel<30 days: No Contact w/Intl Traveler<30days: No Traveled to known affect area: No History of Present Illness HPI Patient is a 41-year-old male who returns to emergency room after he left AGAINST MEDICAL ADVICE on June 26, 2016 after he was treated for epidural abscess as well as vertebral osteomyelitis. During his inpatient stay, patient had at T4-5 decompressive laminectomy, evacuation of his epidural abscess and granulation tissue as well as evacuation of his thoracic paraspinous abscess on May 25, [address] Pickard. He ultimately developed staph aureus bacteremia with cultures from his back wound showing staph aureus. Patient had a prolonged hospital visit, he was seen by infectious disease and did have a Caro's catheter placed as he required IV Rocephin until July 19 and then chronic suppression with Keflex or dicloxacillin likely definitely. Patient ultimately left AGAINST MEDICAL ADVICE on June 26 as his dose of Percocet was adjusted to 10/325 mg every 6 hours when necessary pain. Because of this, patient signed himself AGAINST MEDICAL ADVICE and left without having the Caro catheter removed. Patient reports that he is still having back pain and fevers. Reports that he is supposed to be on IV antibiotics and has not been on them since he left AGAINST MEDICAL ADVICE. Reports that he did go to the [facility] yesterday and was told to go straight to [facility] as they could not help him there. PFSH Past Medical History Arthritis: No Asthma: No Autoimmune Disease: No Blood Disorders: No Anxiety: Yes Depression: No Heart Rhythm Problems: Yes (SINUS TACHYCARDIA AT TIMES) Cancer: No Cardiovascular Problems: Yes High Cholesterol: No Chemotherapy: No Chest Pain: No Congestive Heart Failure: Yes COPD: No Cerebrovascular Accident: No Diabetes: No Diminished Hearing: No Endocrine: No GERD: No Glaucoma: No Genitourinary: Yes Headaches: No Hepatitis: Yes (HEP C) Hiatal Hernia: No Hypertension: No Immune Disorder: No Implanted Vascular Access Dvce: Yes Kidney Stones: No Musculoskeletal: Yes (T4-T10 ) Neurologic: Yes (NEUROPATHY) Psychiatric: No Reproductive: No Respiratory: No Immunizations Current: Yes Migraines: No Myocardial Infarction: No Radiation Therapy: No Renal Failure: No Seizures: No Sickle Cell Disease: No Sleep Apnea: No Thyroid Disease: No Ulcer: No Tetanus Vaccination: < 5 Years Past Surgical History Abdominal Surgery: No AICD: No Arteriovenous Shunt: No Body Medical Devices: BACK HARDWARE Cardiac Surgery: No Ear Surgery: No Endocrine Surgery: No Eye Surgery: No Genitourinary Surgery: No Gynecologic Surgery: No Insulin Pump: No Joint Replacement: Yes (VERTEBRAL REPAIR) Neurologic Surgery: Yes (T4-T6 repair, , T4-T11 repair previously neuropathy ) Oral Surgery: No Pacemaker: No Thoracic Surgery: Yes Social History Alcohol Use: No Tobacco Use: Yes Substance Use: Yes (HX IVDA, per pt sober x 1 year. Pt buying dilaudid off street for pain ) Allergies-Medications (Allergen,Severity, Reaction): Coded Allergies: Aspirin (Verified Allergy, Severe, 07/03/16) PATIENT STATES HE HAD A HOLE IN HIS HEART WHEN HE WAS BORN AND HE WAS TOLD NOT TO TAKE ASPIRIN. SNF [facility] STATES NO KNOWN ALLERGIES PATIENT DENIES ALLERGY TO ASPIRIN. 04/01/13 Reported Meds & Prescriptions Reported Meds & Active Scripts Active No Active Prescriptions or Reported Medications Review of Systems General / Constitutional: Positive: Fever, Chills Eyes: No: Visual changes HENT: No: Headaches Cardiovascular: No: Chest Pain or Discomfort Respiratory: No: Shortness of Breath Gastrointestinal: No: Abdominal Pain Genitourinary: No: Dysuria Musculoskeletal: Positive: Pain (back pain) Skin: No Rash Neurologic: No: Weakness Psychiatric: No: Depression Endocrine: No: Polydipsia Hematologic/Lymphatic: No: Easy Bruising Physical Exam Narrative GENERAL: mild distress SKIN: Focused skin assessment warm/dry. HEAD: Atraumatic. Normocephalic. EYES: Pupils equal and round. No scleral icterus. No injection or drainage. ENT: No nasal bleeding or discharge. Mucous membranes pink and moist. NECK: Trachea midline. No JVD. CARDIOVASCULAR: Regular rate and rhythm. No murmur appreciated. Caro catheter secured by electrical tape RESPIRATORY: No accessory muscle use. Clear to auscultation. Breath sounds equal bilaterally. GASTROINTESTINAL: Abdomen soft, non-tender, nondistended. Hepatic and splenic margins not palpable. MUSCULOSKELETAL: No obvious deformities. No clubbing. No cyanosis. No edema. NEUROLOGICAL: Awake and alert. No obvious cranial nerve deficits. Motor grossly within normal limits. Normal speech. PSYCHIATRIC: Appropriate mood and affect; insight and judgment normal. Data Data Last Documented VS Vital Signs Date Time Temp Pulse Resp B/P Pulse Ox O2 Delivery O2 Flow Rate FiO2 07/04/16 01:03 98 18 121/75 98 Room Air 07/03/16 22:32 98.6 Orders Complete Blood Count With Diff (07/03/16 22:51) Comprehensive Metabolic Panel (07/03/16 22:51) Prothrombin Time / Inr (Pt) (07/03/16 22:51) Act Partial Throm Time (Ptt) (07/03/16 22:51) Lactic Acid Sepsis Protocol (07/03/16 22:51) Magnesium (Mg) (07/03/16 22:51) Urinalysis - C+S If Indicated (07/03/16:51) Blood Culture (07/03/16:51) Chest, Single Ap (07/03/16 22:51) Ecg Monitoring (07/03/16 22:51) Iv Access Insert/Monitor (07/03/16:51) Oximetry (07/03/16:51) Oxygen Administration (07/03/16 22:51) Ceftriaxone Inj (Rocephin Inj) (07/03/16 23:00) Drug Screen,Ur W/Confirmation (07/03/16 23:10) Oxycodone-Acetamin 10-325 Mg (Percocet 1 (07/04/16 00:30) Sodium Chlor 0.9% 1000 Ml Inj (Ns 1000 M (07/04/16 00:30) Admit Order (Ed Use Only) (07/04/16 01:01) Labs Laboratory Tests Test 07/03/16 23:30 Prothrombin Time 11.9 SEC Prothromb Time International 1.1 RATIO Ratio Activated Partial 33.0 SEC Thromboplast Time Sodium Level 127 MEQ/L Potassium Level 3.4 MEQ/L Chloride Level 95 MEQ/L Carbon Dioxide Level 18.1 MEQ/L Anion Gap 14 MEQ/L Blood Urea Nitrogen 43 MG/DL Creatinine 3.19 MG/DL Estimat Glomerular Filtration 21 ML/MIN Rate Random Glucose 108 MG/DL Lactic Acid Level 3.0 mmol/L Calcium Level 7.9 MG/DL Magnesium Level 2.2 MG/DL Total Bilirubin 0.3 MG/DL Aspartate Amino Transf 52 U/L (AST/SGOT) Alanine Aminotransferase 34 U/L (ALT/SGPT) Alkaline Phosphatase 154 U/L Total Protein 7.2 GM/DL Albumin 2.4 GM/DL MDM Medical Decision Making Medical Screen Exam Complete: Yes Emergency Medical Condition: Yes Interpretation(s) Vital Signs Date Time Temp Pulse Resp B/P Pulse Ox O2 Delivery O2 Flow Rate FiO2 07/03/16 22:32 98.6 92 18 119/80 100 Room Air 07/03/16 22:19 97.1 104 16 119/82 98 Room Air Differential Diagnosis Epidural abscess, vertebral osteomyelitis, drug abuse, sepsis, bacteremia Narrative Course Patient is a 41-year-old male who returns to the hospital for admission to the hospital for treatment of epidural abscess with vertebral osteomyelitis. Patient left AGAINST MEDICAL ADVICE on June 26, 2016, reports that he has a Caro's catheter and has not received IV antibiotics since he left the hospital. Patient reports that he has severe pain to his back, reports that he has been having fevers and chills. Patient here for readmission to the hospital. Labs including lactic acid and blood cultures ordered. IV Rocephin ordered. Laboratory Tests Test 07/03/16 23:30 Prothrombin Time 11.9 SEC (9.8-11.6) Prothromb Time International 1.1 RATIO Ratio Activated Partial 33.0 SEC Thromboplast Time (24.3-30.1) Sodium Level 127 MEQ/L (136-145) Potassium Level 3.4 MEQ/L (3.5-5.1) Chloride Level 95 MEQ/L (98-107) Carbon Dioxide Level 18.1 MEQ/L (21.0-32.0) Anion Gap 14 MEQ/L (5-15) Blood Urea Nitrogen 43 MG/DL (7-18) Creatinine 3.19 MG/DL (0.60-1.30) Estimat Glomerular Filtration 21 ML/MIN (>89) Rate Random Glucose 108 MG/DL (74-106) Lactic Acid Level 3.0 mmol/L (0.4-2.0) Calcium Level 7.9 MG/DL (8.5-10.1) Magnesium Level 2.2 MG/DL (1.5-2.5) Total Bilirubin 0.3 MG/DL (0.2-1.0) Aspartate Amino Transf 52 U/L (15-37) (AST/SGOT) Alanine Aminotransferase 34 U/L (12-78) (ALT/SGPT) Alkaline Phosphatase 154 U/L (45-117) Total Protein 7.2 GM/DL (6.4-8.2) Albumin 2.4 GM/DL (3.4-5.0) Patient's lactate is 3.0, blood cultures pending. Patient was given a dose of IV Rocephin. wbc: after multiple attempts - this was clotted off as per lab, lab will come to draw cbc bmp: Sodium is 127, potassium 3.4, Patient currently in renal failure with a BUN of 43 and creatinine 3.19 (last cr on 06/26/16 was 0.93) Patient will require admission to hospital at this time case reviewed with Dr. Hernandez who accepts pt to service Records from [facility] and was obtained, patient was seen in the ER on July 02, 2016, no labs or x-rays were drawn, patient was deemed stable, was given instructions to go directly to [place] for further evaluation with Dr. Pickard. ER report was placed in pt's chart patient yelling and screaming at RN and techs as well as myself, patient refusing further workup. I did talk to patient and asked him to calm down and explained reason for workup and lab work. Patient reports "I'm angry because I asked for soda and no one will give it to me." I did offer patient gatorade or water - patient refuses both as he only wants soda. Critical Care Narrative Aggregate critical care time was 30 minutes. Time to perform other separately billable procedures was not included in the critical care time. My time did not include minutes spent treating any other patients simultaneously or on activities that did not directly contribute to the patient's treatment. The services I provided to this patient were to treat and/or prevent clinically significant deterioration that could result in: , decompensation, deterioration I provided critical care services requiring my management, as noted below: Chart data review, documentation time, medication orders and management, vital sign assessments/reviewing monitor data, ordering and reviewing lab tests, ordering and interpreting/reviewing x-rays and diagnostic studies, care of the patient and discussion of the patient with the admitting physicians. Diagnosis Primary Impression: Osteomyelitis Qualified Code: M86.9 - Osteomyelitis, unspecified site, unspecified type Additional Impressions: Epidural abscess Hyponatremia Renal failure Qualified Code: N17.9 - Acute renal failure, unspecified acute renal failure type Admitting Information Admitting Physician Requests: Admit Scripts No Active Prescriptions or Reported Meds Dorota Thomas DO July 03, 2016 23:14
--- NOTE | 2016-07-03 23:29 | RADRPT ---
EXAM DATE/TIME: 07/03/2016 23:01 [facility] COMPARISON: CHEST SINGLE AP, May 25, 2016, 22:46. INDICATIONS : Chest pain. MEDICAL HISTORY : Hepatitis C. SURGICAL HISTORY : Back fusions. ENCOUNTER: Initial ACUITY: 1 day PAIN SCORE: 5/10 LOCATION: Bilateral chest FINDINGS: Mild right lung base atelectasis and/or infiltrate is seen. Right IJ line is present with tip overlap ping the expected region of the SVC. There is improvement in the aeration of the left lungs in the le ft lung appears clear at this time. The rest of the examination has not significantly changed. CONCLUSION: Mild right lung base atelectasis and/or infiltrate is seen. Soco Oliveira MD on July 03, 2016 at 23:26 Board Certified Radiologist. This report was verified electronically.
[2016-07-03 23:58] LABS: INTERNATIONAL NORMALIZED RATIO 1.1 RATIO; PROTHROMBIN TIME - PATIENT 11.9 SEC (9.8-11.6)
[2016-07-04] VITALS (9 sets, daily range): BP systolic 98–121; BP diastolic 57–75; PULSE 58–137; RESP 16–20; TEMP 97.5–99.8; O2SAT 93–99
[2016-07-04 00:09] LABS: ALT (GPT) 34 U/L (12-78); ANION GAP 14 MEQ/L (5-15); AST (GOT) 52 U/L (15-37); BICARBONATE 18.1 MEQ/L (21.0-32.0); BLOOD UREA NITROGEN 43 MG/DL (7-18); CHLORIDE 95 MEQ/L (98-107); GLOMERULAR FILTRATION RATE 21 ML/MIN (>89); MAGNESIUM 2.2 MG/DL (1.5-2.5); POTASSIUM 3.4 MEQ/L (3.5-5.1); SODIUM (NA) 127 MEQ/L (136-145)
[2016-07-04 00:11] LABS: ALKALINE PHOSPHATASE 154 U/L (45-117); TOTAL BILIRUBIN ADULT 0.3 MG/DL (0.2-1.0)
[2016-07-04] MEDS ORDERED: oxyCODONE/ACETAMINOPHEN 10 MG/325 MG TAB PO ONE (00:30)
[2016-07-04] MEDS ORDERED: SODIUM CHLOR 0.9% 1000 ML INJ 1,000 ML IV ONE (00:30)
[2016-07-04 01:44] LABS: LACTIC ACID GHOST NOT REPORTABLE
[2016-07-04] MEDS: SODIUM CHLOR 0.9% 1000 ML INJ 1,000 ML IV SCH ×3 (02:11→22:11)
[2016-07-04] MEDS ORDERED: SODIUM CHLORIDE 0.9% FLUSH 10 ML FLUSH IV FLUSH PRN (02:15)
[2016-07-04] MEDS ORDERED: NALOXONE HCL 0.4 MG/ML AMP IV PRN (02:15)
[2016-07-04] MEDS ORDERED: SENNOSIDES 8.6 MG TAB PO PRN (02:15)
[2016-07-04] MEDS ORDERED: ACETAMINOPHEN 325 MG TAB PO PRN (02:15)
[2016-07-04] MEDS ORDERED: POTASSIUM CHLORIDE 25 MEQ EFFERVESCENT TAB PO ONE (02:15)
[2016-07-04] MEDS ORDERED: RESP: ALBUTEROL 2.5 MG/IPRATROPIUM 0.5 MG NEB (SCH) NEB ONE (02:15)
[2016-07-04] MEDS ORDERED: ALBUTEROL SULFATE 90 MCG/ACT HFA 8 GM INHALER INH PRN (02:15)
[2016-07-04] MEDS ORDERED: ONDANSETRON HCL 4 MG/2 ML VIAL IVP PRN (02:15)
[2016-07-04] MEDS ORDERED: cefTRIAXone INJ 1,000 MG in SODIUM CHLORIDE 0.9% INJ 100 ML IV ONE (02:30)
[2016-07-04] MEDS ORDERED: oxyCODONE/ACETAMINOPHEN 5 MG/325 MG TAB PO PRN (02:30)
[2016-07-04] MEDS ORDERED: LINEZOLID 600 MG TAB PO ONE (02:30)
[2016-07-04] MEDS ORDERED: oxyCODONE/ACETAMINOPHEN 10 MG/325 MG TAB PO PRN (02:30)
--- NOTE | 2016-07-04 02:48 | HHI.HP ---
[facility] Primary [facility] Physician Bienvenido Menjivar Admission Diagnosis Vertebral osteomyelitis, s/p epidural abscess Diagnoses: Chief Complaint: Back pain Travel History International Travel<30 Days: No Contact w/Intl Traveler <30 Da: No Traveled to Known Affected Are: No History of Present Illness The patient is a 41-year-old male with history of IV drug use and multiple infections for which she was in the hospital for extended period of time is presenting to the hospital after recently leaving AGAINST MEDICAL ADVICE. The patient had his pain medications decreased in frequency from every 4 hours to every 6 hours so he decided to leave the hospital. He left the hospital with a Caro catheter in place. He continued to have severe back pain and has not been taking his antibiotics as recommended so he decided to come back to the hospital. He went to an outside hospital yesterday who discharged him home and recommended he follow up with his neurosurgeon at our hospital. The patient endorses chills from time to time. He says he has been using Dilaudid but has not been injecting it. He says he has been crushing it and snorting it. He says the last time he worked with physical therapy they said he was doing fine. He was requesting an albuterol inhaler. Review of Systems Except as stated in HPI: all other systems reviewed are Neg Past Family Social History Past Medical History Osteomyelitis of the spine in 2011 due to MSSA Osteomyelitis of the thoracic spine in 2013 treated, culture had MSSA, had removal of the hardware at that time Paraspinal abscess Bacteremia Episode of back abscess in January 2016 Lung collapse s/p chest tubes HTN Past Surgical History History of laminectomy with fusion of the thoracic spine 2011 History of decompressive laminectomy discectomy and T3 T6 fusion with autograft in March 2013 Removal of thoracic hardware and evacuation of a deep thoracic wound abscess in September 2013 Allergies: Coded Allergies: Aspirin (Verified Allergy, Severe, 07/03/16) PATIENT STATES HE HAD A HOLE IN HIS HEART WHEN HE WAS BORN AND HE WAS TOLD NOT TO TAKE ASPIRIN. RESIDENTIAL MAR STATES NO KNOWN ALLERGIES PATIENT DENIES ALLERGY TO ASPIRIN. 04/01/13 Family History The pt's father of a heart attack at the age of 42. Social History The pt used to inject IV Dilaudid, but he says now he crushes it and snorts it. He quit drinking 10 years ago. He smokes 5 cigarettes a day. Physical Exam Vital Signs Vital Signs Date Time Temp Pulse Resp B/P Pulse Ox O2 Delivery O2 Flow Rate FiO2 07/04/16 01:41 16 07/04/16 01:03 98 18 121/75 98 Room Air 07/04/16 00:44 98 Room Air 07/04/16 00:44 98 Room Air 07/03/16 22:32 98.6 92 18 119/80 100 Room Air 07/03/16 22:19 97.1 104 16 119/82 98 Room Air Physical Exam GENERAL: No apparent distress, resting comfortably. HEAD: Atraumatic. Normocephalic. EYES: Pupils equal and round. No scleral icterus. No injection or drainage. ENT: No nasal bleeding or discharge. Mucous membranes pink and moist. NECK: Trachea midline. No JVD. CARDIOVASCULAR: Tachycardic. No murmur appreciated. RESPIRATORY: No accessory muscle use. Clear to auscultation. Breath sounds equal bilaterally. GASTROINTESTINAL: Abdomen soft, non-tender, nondistended. Hepatic and splenic margins not palpable. MUSCULOSKELETAL: No obvious deformities. No clubbing. No cyanosis. No edema. BACK: Tender to palpation of upper back. NEUROLOGICAL: Awake and alert. No gross deficits. PSYCHIATRIC: Appropriate mood and affect; insight and judgment normal. Laboratory Laboratory Tests Test 07/03/16 23:30 Prothrombin Time 11.9 Prothromb Time International 1.1 Ratio Activated Partial 33.0 Thromboplast Time Sodium Level 127 Potassium Level 3.4 Chloride Level 95 Carbon Dioxide Level 18.1 Anion Gap 14 Blood Urea Nitrogen 43 Creatinine 3.19 Estimat Glomerular Filtration 21 Rate Random Glucose 108 Lactic Acid Level 3.0 Calcium Level 7.9 Magnesium Level 2.2 Total Bilirubin 0.3 Aspartate Amino Transf 52 (AST/SGOT) Alanine Aminotransferase 34 (ALT/SGPT) Alkaline Phosphatase 154 Total Protein 7.2 Albumin 2.4 Date/Time Procedure Status Source Growth 07/03/16 23:30 Aerobic Blood Culture Received Blood Peripheral Pending 07/03/16 23:30 Anaerobic Blood Culture Received Blood Peripheral Pending Result Diagram: 07/03/16 2330 Imaging Last Impressions Chest X-Ray 07/03/16 8889 Signed Impressions: Service Date/Time: Sunday, July 03, 2016 23:01 - CONCLUSION: Mild right lung base atelectasis and/or infiltrate is seen. Soco Oliveira MD Assessment and Plan Assessment and Plan Multiple infections/ Back pain The pt was treated in the hospital and left AMA recently. Thoracic spine MRI at the time showed extensive bilateral paraspinal abscess, discitis, osteomyelitis , right lung consolidation, epidural abscess. S/p T4-5 decompressive laminectomy , evacuation of epidural abscess and granulation tissue and evacuation thoracic paraspinous abscess on 05/25/16. / blood cultures grew MSSA. Repeat blood cultures 06/14/16 were negative. Expectorated sputum, fluid culture, and back wound all with MSSA. Infectious disease evaluated the patient and made recommendations of Rocephin 2 g IV with end date 07/19/16, along with Biaxin and Linezolid. 06/[address] scan of the thoracic spine showed significant improvement with decrease in soft tissue prominence; Paraspinal abnormality is less prominent. - continue antibiotics per ID. Reconsult as needed. - Reconsult neurosurgery as needed. - physical therapy. - pain control with a bowel regimen. - follow repeat blood cultures. 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 - Infectious disease recommended Biaxin and Zyvox on prior admit. Continue. Anemia Chronic. Likely s/t to chronic disease. - Follow CBC and transfuse if Hb < 7. Acute renal failure/ Hyponatremia Likely prerenal. - Continue IV fluids and monitor. - Avoid nephrotoxic agents. IV drug abuse The patient will follow hospital with a Caro catheter in place. - Cessation instruction. - Avoid medications that could be crushed and injected as he has a questionable history of doing that in the hospital. - will likely need the catheter removed. Consult IR if needed. Nicotine dependence The patient smokes 5 cigarettes daily. - Cessation instruction given. DVT Prophylaxis: SCDs. Code Status Full. Discussed Condition With Dr. Thomas, pt, pt's nurse. Physician Certification 2 Midnight Certification Type: Admission for Inpatient Services Order for Inpatient Services The services are ordered in accordance with Medicare regulations or non- Medicare payer requirements, as applicable. In the case of services not specified as inpatient-only, they are appropriately provided as inpatient services in accordance with the 2-midnight benchmark. Estimated LOS (days): 2 days is the estimated time the patient will need to remain in the hospital, assuming treatment plan goals are met and no additional complications. Post-Hospital Plan: Not yet determined Bryan Spaulding DO July 04, 2016 02:48
[2016-07-04 04:03] LABS: HEMO FLAGS AUTO DIFF; MEAN CELL VOLUME 66.8 FL (80.0-100.0); MEAN CORPUSCULAR HEMOGLOBIN 22.1 PG (27.0-34.0); PLATELET COUNT 48 TH/MM3 (150-450); RED BLOOD COUNT 4.19 MIL/MM3 (4.50-5.90); RED CELL DISTRIBUTION WIDTH 19.6 % (11.6-17.2); WHITE BLOOD COUNT 2.6 TH/MM3 (4.0-11.0)
[2016-07-04 04:17] LABS: ALT (GPT) 31 U/L (12-78); ANION GAP 13 MEQ/L (5-15); AST (GOT) 51 U/L (15-37); BICARBONATE 16.6 MEQ/L (21.0-32.0); BLOOD UREA NITROGEN 41 MG/DL (7-18); CHLORIDE 99 MEQ/L (98-107); GLOMERULAR FILTRATION RATE 24 ML/MIN (>89); POTASSIUM 3.3 MEQ/L (3.5-5.1); SODIUM (NA) 129 MEQ/L (136-145)
[2016-07-04 04:19] LABS: ALKALINE PHOSPHATASE 144 U/L (45-117); TOTAL BILIRUBIN ADULT 0.3 MG/DL (0.2-1.0)
[2016-07-04 04:42] LABS: OVALOCYTES 1+ (NORMAL); PLATELET ESTIMATE SMEAR LOW (NORMAL); PLATELET MORPHOLOGY NORMAL (NORMAL); SCAN/DIFF AUTO DIFF CONFIRMED
[2016-07-04] MEDS: CLARITHROMYCIN 500 MG TAB PO SCH ×3 (04:43→22:43)
[2016-07-04 05:50] LABS: BACTERIA, URINE RARE /hpf; BLOOD, URINE LARGE (NEG); COMMENT (UR) CATH-CULTURE IND; CULTURE IF INDICATED CATH CULTURE IND; GLUCOSE,URINE NEG (NEG); KETONE, URINE NEG (NEG); MUCUS URINE FEW /lpf (OCC); NITRITE,URINE NEG (NEG); URINE COLOR YELLOW (YELLW/STRAW)
[2016-07-04 05:54] LABS: AMPHETAMINE, URINE NEG (NEG); BARBITURATES, URINE NEG (NEG); COCAINE, URINE NEG (NEG)
[2016-07-04] MEDS: ACETAMINOPHEN 325 MG TAB PO PRN ×2 (07:33→13:37)
[2016-07-04] MEDS: DOCUSATE SODIUM 100 MG CAP PO SCH ×2 (09:00→20:20)
[2016-07-04] MEDS: SODIUM CHLORIDE 0.9% FLUSH 10 ML FLUSH IV FLUSH SCH ×2 (09:28→22:32)
[2016-07-04] MEDS ORDERED: ceFOXitin INJ 2 GM in SODIUM CHLORIDE 0.9% INJ 100 ML IV SCH (11:00)
--- NOTE | 2016-07-04 11:18 | HHI.PR ---
Addendum to Inpatient Note Addendum Reason: Additional Documentation Additional Information Patient seen and examined. He is complaining of same pain on his upper back. dressing appear intact. We discussed his treatment plan at length. He was made aware that I will only give him Percocet for Pain with plan to wean it off. No IV pain medications and his dose will not be escalated. ID consulted for assistance. Continue antibiotics. Ananya Jimenes MD July 04, 2016 11:18
[2016-07-04] MEDS: LINEZOLID 600 MG TAB PO SCH ×2 (11:46→20:20)
[2016-07-04] MEDS: oxyCODONE/ACETAMINOPHEN 10 MG/325 MG TAB PO PRN ×3 (11:46→20:20)
[2016-07-04 11:48] LABS: HEMATOCRIT 24.7 % (39.0-51.0); MEAN CELL VOLUME 67.5 FL (80.0-100.0); MEAN CORPUSCULAR HEMOGLOBIN 21.7 PG (27.0-34.0); MEAN CORPUSCULAR HGB CONC 32.2 % (32.0-36.0); PLATELET COUNT 69 TH/MM3 (150-450); RED BLOOD COUNT 3.67 MIL/MM3 (4.50-5.90); RED CELL DISTRIBUTION WIDTH 20.3 % (11.6-17.2); WHITE BLOOD COUNT 3.9 TH/MM3 (4.0-11.0)
[2016-07-04 11:54] LABS: HEMO FLAGS AUTO DIFF
--- NOTE | 2016-07-04 12:01 | PD.CONS ---
History of Present Illness Service Infectious disease Consult Requested By Dr Neftali Jimenes Reason for Consult Evaluate patient with known MSSA bacteremia, and epidural abscess Primary Care Physician Bienvenido Menjivar Diagnoses: History of Present Illness Patient seen and examined. Records reviewed. Patient is a 41-year-old male admitted to the hospital for further evaluation of his persistent severe back pain. Patient was recently hospitalized last month and he was diagnosed to have recurrent epidural abscess, and question extension into his right chest cavity. He was initially in [facility], and was transferred to [facility] for neurosurgical evaluation. Patient underwent surgery by Dr. Pickard, and he had debridement, and drainage of the epidural abscess. The cultures and or culture also grew methicillin sensitive staph aureus. His echo did not show any vegetation. Patient was being treated with IV antibiotics, and undergoing pain control. During his hospitalization, he started having fevers again, and there was a suspicion that he was using his venous access. Patient had multiple blockage in his upper extremity venous system, so he had placement of a Caro catheter. Patient was transferred to [facility], and from there patient apparently signed out AMA. His blood cultures from June 14 started growing atypical mycobacteria, and infectious disease saw the patient while he was still in [place], and repeat blood culture done June 19 is now also reported as growing Mycobacterium abscesses. Patient signed out AMA, and was out in the community for about a week with his Caro in place. Patient denies use in his Caro although he continues to use Dilaudid but apparently was snorting it. He continues to have significant back pain. He's had some episodes of fever. He had about 3-4 days of diarrhea and that has resolved. He denies any significant urinary complaints. Denies any chest pain. No nausea or vomiting. He has not had any rash or any itching. Patient has now been admitted, an infectious disease consultation has been requested to assist with management of his infection. Review of Systems Constitutional: COMPLAINS OF: Fever, Night Sweats Eyes: DENIES: Eye pain Ears, nose, mouth, throat: DENIES: Nasal discharge, Oral lesions, Throat pain, Ear Pain, Sinus Pain, Toothache Respiratory: DENIES: Cough, Sputum production, Shortness of breath Cardiovascular: DENIES: Chest pain, Palpitations, Syncope Gastrointestinal: COMPLAINS OF: Diarrhea, DENIES: Abdominal pain, Nausea, Vomiting, Difficulty Swallowing Genitourinary: DENIES: Hematuria, Dysuria Musculoskeletal: COMPLAINS OF: Back pain Integumentary: DENIES: Rash Neurologic: DENIES: Headache, Localized weakness Psychiatric: DENIES: Confusion, Hallucinations Past Family Social History Allergies: Coded Allergies: Aspirin (Verified Allergy, Severe, 07/03/16) PATIENT STATES HE HAD A HOLE IN HIS HEART WHEN HE WAS BORN AND HE WAS TOLD NOT TO TAKE ASPIRIN. LONG TERM MAR STATES NO KNOWN ALLERGIES PATIENT DENIES ALLERGY TO ASPIRIN. 04/01/13 Past Medical History Osteomyelitis of the spine in 2012 due to MSSA Osteomyelitis of the thoracic spine in 2013 treated, culture had MSSA, had removal of the hardware at that time Episode of M abscesses and Pseudomonas sepsis felt to be due to PICC line infection back in 2013 Episode of back abscess again in January 2016, treated at [facility] had drainage, and a long course of IV antibiotics Known IV drug use Past Surgical History History of laminectomy with fusion of the thoracic spine 2011 History of decompressive laminectomy discectomy and T3 T6 fusion with autograft in March 2013 Removal of thoracic hardware and evacuation of a deep thoracic wound abscess in September 2013 Active Ordered Medications Percocet Senokot Colace Zofran Tylenol Albuterol Rocephin Zyvox Biaxin Social History Patient smokes about 5-6 cigarettes per day Denies alcohol abuse Known IVDU Physical Exam Vital Signs Vital Signs Date Time Temp Pulse Resp B/P Pulse Ox O2 Delivery O2 Flow Rate FiO2 07/04/16 11:19 97.5 93 18 99/64 99 07/04/16 08:53 97.8 66 18 103/58 95 07/04/16 05:21 99.8 125 18 99/57 99 07/04/16 04:46 137 18 102/70 93 Room Air 07/04/16 02:26 98 07/04/16 01:41 16 07/04/16 01:03 98 18 121/75 98 Room Air 07/04/16 00:44 98 Room Air 07/04/16 00:44 98 Room Air 07/03/16 22:32 98.6 92 18 119/80 100 Room Air 07/03/16 22:19 97.1 104 16 119/82 98 Room Air Physical Exam GENERAL: Patient is a well-nourished, well-developed male, awake and alert, not in respiratory distress. SKIN: Warm and dry. No generalized rash, no ecchymoses and no evidence of embolic lesions. HEAD: Atraumatic. Normocephalic. No temporal wasting, or tenderness. EYES: Tamora conjunctiva. No petechia or hemorrhage. Pupils equal, round and reactive to light. Extraocular movements full and intact. No scleral icterus. No injection or drainage. EARS, NOSE AND THROAT: Nose without bleeding or purulent nasal discharge. No sinus tenderness. Mucous membranes pink and moist. No oral lesions noted. No exudate. No oral thrush. NECK: Trachea midline. Supple and not tender, no meningeal signs CARDIOVASCULAR: Regular rate and rhythm. No murmurs, rubs or gallops heard RESPIRATORY: Clear to auscultation. Breath sounds equal bilaterally. No rales , wheezing or rhonchi ABDOMEN: Soft, non-tender, nondistended. Bowel sounds present and normoactive. No guarding. No rebound. No organomegaly. EXTREMITIES: No clubbing, cyanosis, or edema.No joint effusion, has good ROM. No calf tenderness. Well perfused and warm. NEUROLOGICAL: Awake and alert. Cranial nerves grossly intact. Motor grossly within normal limits. BACK: Incision is dry, no redness or drainage PSYCHIATRIC: Normal affect, calm and cooperative. LINE: Caro cath site with no evidence of infection Laboratory Laboratory Tests Test 07/03/16 07/04/16 07/04/16 07/04/16 23:30 03:05 03:06 05:28 Prothrombin Time 11.9 Prothromb Time International 1.1 Ratio Activated Partial 33.0 Thromboplast Time Sodium Level 127 129 Potassium Level 3.4 3.3 Chloride Level 95 99 Carbon Dioxide Level 18.1 16.6 Anion Gap 14 13 Blood Urea Nitrogen 43 41 Creatinine 3.19 2.88 Estimat Glomerular Filtration 21 24 Rate Random Glucose 108 86 Lactic Acid Level 3.0 0.9 Calcium Level 7.9 7.5 Magnesium Level 2.2 Total Bilirubin 0.3 0.3 Aspartate Amino Transf 52 51 (AST/SGOT) Alanine Aminotransferase 34 31 (ALT/SGPT) Alkaline Phosphatase 154 144 Total Protein 7.2 6.4 Albumin 2.4 2.1 White Blood Count 2.6 Red Blood Count 4.19 Hemoglobin 9.2 Hematocrit 28.0 Mean Corpuscular Volume 66.8 Mean Corpuscular Hemoglobin 22.1 Mean Corpuscular Hemoglobin 33.0 Concent Red Cell Distribution Width 19.6 Platelet Count 48 Mean Platelet Volume 8.2 Neutrophils (%) (Auto) Lymphocytes (%) (Auto) Monocytes (%) (Auto) Eosinophils (%) (Auto) Basophils (%) (Auto) Neutrophils # (Auto) Lymphocytes # (Auto) Monocytes # (Auto) Eosinophils # (Auto) Basophils # (Auto) CBC Comment AUTO DIFF Differential Comment AUTO DIFF CONFIRMED Platelet Estimate LOW Platelet Morphology Comment NORMAL Ovalocytes 1+ Urine Color YELLOW Urine Turbidity HAZY Urine pH 5.0 Urine Specific [place] 1.010 Urine Protein 30 Urine Glucose (UA) NEG Urine Ketones NEG Urine Occult Blood LARGE Urine Nitrite NEG Urine Bilirubin NEG Urine Urobilinogen LESS THAN 2.0 Urine Leukocyte Esterase NEG Urine RBC 167 Urine WBC 11 Urine Amorphous Sediment RARE Urine Bacteria RARE Urine Mucus FEW Microscopic Urinalysis Comment CATH-CULTURE IND Urine Opiates Screen POS Urine Barbiturates Screen NEG Urine Amphetamines Screen NEG Urine Benzodiazepines Screen NEG Urine Cocaine Screen NEG Urine Cannabinoids Screen NEG Date/Time Procedure Status Source Growth 07/04/16 05:28 Urine Culture Received Urine Catheterized Urine Pending 07/03/16 23:30 Aerobic Blood Culture - Preliminary Resulted Blood Peripheral NO GROWTH IN 1 DAY 07/03/16 23:30 Anaerobic Blood Culture - Preliminary Resulted Blood Peripheral NO GROWTH IN 1 DAY Result Diagram: 07/04/16 0305 07/04/16 0306 Imaging Chest X-Ray 07/03/16 [id number] Signed Impressions: Service Date/Time: Sunday, July 03, 2016 23:01 - CONCLUSION: Mild right lung base atelectasis and/or infiltrate is seen. Soco Oliveira MD Assessment and Plan Assessment and Plan IMPRESSION Staph aureus sepsis due to recurrent spine infection Paraspinal abscess/epidural abscess S/P OR - per NS, abscess did not communicate in thoracic cavity Previous Rx for osteo thoracic, removal of thoracic hardware last 2013, with MSSA Previous Rx MSSA osteo of spine 2011 Known IVDU Fluid collection over RSC joint, aspirated, C/S negative, looks better Neutropenia, recurrent, likely due to ongoing infection M abscessus bacteremia, likely line related - patient has used his Caro for self injection Thrombocytopenia, ?DIC Acute renal failure, ?meds, ?infarct, ?volume RECOMMENDATION Rx Mycobacteria: Cefoxitin, Zyvox and Biaxin I spoke with micro and they will request susceptibility testing Give dose of Vanco Remove Caro cath and sent tip for C/S Follow C/S UA and urine for eos Hydration DIC screen If creatinine better, will repeat thoracic CT at some point and evaluate his infection Very difficult disposition on this patient because of his active IVDU; he has been seen using his line while in the hospital I will follow along with you. Thank you for this consultation Discharge Planning D/W Genie Rodriguez MD July 04, 2016 12:01
--- NOTE | 2016-07-04 12:21 | RADRPT ---
EXAM DATE/TIME: 07/04/2016 11:29 [facility] COMPARISON: No previous studies available for comparison. INDICATIONS : Evaluate obstruction. MEDICAL HISTORY : Hepatitis C. IV drug use. Epidural abscess. Vertebral osteomyelitis. SURGICAL HISTORY : Back surgery. ENCOUNTER: Subsequent ACUITY: 1 day PAIN SCORE: 4/10 LOCATION: Bilateral flank MEASUREMENTS: RIGHT KIDNEY: 11.9 x 4.7 x 9.0 cm LEFT KIDNEY: 11.6 x 7.0 x 5.3 cm FINDINGS: Liver enlarged and mildly echogenic. Spleen is also enlarged measuring 22.9 cm. Kidneys are echogenic without hydronephrosis, calculi or mass. Urinary bladder unremarkable. CONCLUSION: 1. Echogenic kidneys which can be seen with medical renal disease. 2. Echogenic liver and splenomegaly. Roni Dominique MD on July 04, 2016 at 12:16 Board Certified Radiologist. This report was verified electronically.
[2016-07-04 13:14] LABS: BACTERIA, URINE FEW /hpf; BLOOD, URINE MOD (NEG); GLUCOSE,URINE NEG (NEG); KETONE, URINE NEG (NEG); NITRITE,URINE NEG (NEG); URINE COLOR YELLOW (YELLW/STRAW)
[2016-07-04 13:19] LABS: BANDS 24 % (0-6); METAMYELOCYTES 1 % (0-1); PLASMA CELLS 1 % (0-0); POLYS (SEG NEUTROPHILS) 52 % (16-70); WBC DIFF SAMPLE 100
[2016-07-04 13:20] LABS: ACANTHOCYTES OCC (NORMAL)
[2016-07-04 13:21] LABS: OVALOCYTES 1+ (NORMAL)
[2016-07-04 13:22] LABS: PLATELET ESTIMATE SMEAR LOW (NORMAL); PLATELET MORPHOLOGY NORMAL (NORMAL); SCAN/DIFF FINAL DIFF MANUAL
[2016-07-04] MEDS: ceFOXitin INJ 2 GM in SODIUM CHLORIDE 0.9% INJ 100 ML IV SCH (13:37)
[2016-07-04] MEDS ORDERED: LIDOCAINE 1%/EPINEPHrine 1:100,000 SOLN 20 ML VIAL ONE (15:20)
--- NOTE | 2016-07-04 16:21 | RADRPT ---
EXAM DATE/TIME: 07/04/2016 00:00 [facility] COMPARISON: No previous studies available for comparison. INDICATIONS : Patient with possible infection in need of tellez catheter removal. MEDICAL HISTORY : Osteomyelitis of the spine in 2011 due to MSSA Osteomyelitis of the thoracic spine in 2013 treated, culture had MSSA, had removal of the hardware a t that time Paraspinal abscess Bacteremia Episode of back abscess in January 2016 Lung collapse s/p chest tubes HTN SURGICAL HISTORY : History of laminectomy with fusion of the thoracic spine 2011 History of decompressive laminectomy discectomy and T3 T6 fusion with autograft in March 2013 Removal of thoracic hardware and evacuation of a deep thoracic wound abscess in September 2013 ENCOUNTER: Subsequent ACUITY: 1 month PAIN SCORE: 10/10 LOCATION: Back IMAGE SERIES: 0 MEDICATION(S): 1.) 150 mcg fentanyl (Sublimaze) IV 2.) 10cc Lidocaine with epinephrine SC PROCEDURE : 1. PermaCath removal. The risks, benefits and alternatives to the procedure were explained and verbal and written consent w as obtained. The site was prepped in sterile fashion. Full sterile technique was used, including ca p, mask, sterile gloves and gown and a large sterile sheet. Hand hygiene and 2% chlorhexidine and/or betadine/alcohol prep was utilized per protocol for cutaneous antisepsis. The skin and subcutaneous tissues were infiltrated with local anesthetic solution. The tract was anesthetized with 1% Lidocaine using. The Permcath was dissected from the subcutaneous tissues and easily removed in one piece. Manual pressure was applied to the venotomy site until hem ostasis was obtained. Sterile dressing was applied. The patient tolerated the procedure well and there were no complications. CONCLUSION: Uncomplicated Permcath removal. Roshan Jain MD on July 04, 2016 at 16:19 Board Certified Radiologist. This report was verified electronically.
[2016-07-04] MEDS ORDERED: LINEZOLID 600 MG TAB PO SCH (21:00)
[2016-07-04] MEDS: cefTRIAXone INJ 2,000 MG in SODIUM CHLORIDE 0.9% INJ 100 ML IV SCH (22:32)
[2016-07-05] VITALS (7 sets, daily range): BP systolic 101–115; BP diastolic 66–76; PULSE 86–96; RESP 16–20; TEMP 97–98.2; O2SAT 94–97
[2016-07-05] MEDS: oxyCODONE/ACETAMINOPHEN 10 MG/325 MG TAB PO PRN ×6 (00:12→20:37)
[2016-07-05] MEDS: ceFOXitin INJ 2 GM in SODIUM CHLORIDE 0.9% INJ 100 ML IV SCH ×2 (01:54→12:31)
[2016-07-05] MEDS: CLARITHROMYCIN 500 MG TAB PO SCH ×2 (08:28→20:37)
[2016-07-05] MEDS: DOCUSATE SODIUM 100 MG CAP PO SCH ×2 (08:28→20:37)
[2016-07-05] MEDS: SODIUM CHLORIDE 0.9% FLUSH 10 ML FLUSH IV FLUSH SCH ×2 (08:28→20:37)
[2016-07-05] MEDS: SODIUM CHLOR 0.9% 1000 ML INJ 1,000 ML IV SCH ×2 (08:29→16:23)
[2016-07-05] MEDS: LINEZOLID 600 MG TAB PO SCH ×2 (08:29→20:37)
[2016-07-05] MEDS ORDERED: PNEUMOCOCCAL POLYVALENT INJ 25 MCG/0.5 ML SYR IM ONE (10:00)
--- NOTE | 2016-07-05 13:05 | HHI.PR ---
Subjective Remarks Patient complains of persistent back pain requesting more pain medications. He was found sleeping in his room in no acute distress. Objective Vitals Vital Signs Date Time Temp Pulse Resp B/P Pulse Ox O2 Delivery O2 Flow Rate FiO2 07/05/16 12:00 98.0 92 18 101/66 94 07/05/16 08:00 98.2 86 18 105/71 95 07/05/16 04:00 97.6 94 20 115/74 97 07/05/16 00:00 97.8 89 20 108/69 95 07/04/16 20:00 Room Air 07/04/16 20:00 97.8 91 20 105/64 99 07/04/16 17:59 98.4 58 16 98/64 96 I/O 07/04/16 07/04/16 07/04/16 07/05/16 07/05/16 07/05/16 07:00 15:00 23:00 07:00 15:00 23:00 Intake Total 330 ml 984 ml Output Total 600 ml Balance 330 ml 384 ml Intake Oral 480 ml IV Total 330 ml 504 ml Output Urine Total 600 ml # Bowel Movements 1 Result Diagram: 07/04/16 1107 07/04/16 0306 Imaging Last Impressions Renal Ultrasound 07/04/16 0000 Signed Impressions: Service Date/Time: Monday, July 04, 2016 11:29 - CONCLUSION: 1. Echogenic kidneys which can be seen with medical renal disease. 2. Echogenic liver and splenomegaly. Roni Dominique MD Central Venous Line 07/04/16 0000 Signed Impressions: Service Date/Time: Monday, July 04, 2016 00:00 - CONCLUSION: Uncomplicated Permcath removal. Roshan Jain MD Chest X-Ray 07/03/16 2251 Signed Impressions: Service Date/Time: Sunday, July 03, 2016 23:01 - CONCLUSION: Mild right lung base atelectasis and/or infiltrate is seen. Soco Oliveira MD Objective Remarks GENERAL: Patient in no apparent distress. He was sleeping as I entered the room. CARDIOVASCULAR: Normal rate and regular rhythm without murmurs, gallops, or rubs. RESPIRATORY: Good respiratory efforts. Breath sounds equal and clear to auscultation bilaterally. GASTROINTESTINAL: Abdomen soft, non-tender, non-distended. Normal active bowel sounds MUSCULOSKELETAL: Extremities without cyanosis, or edema. On his back in the thoracic region, there are some intact Steri-Strips. He reports tenderness to palpation all over his back. NEURO: Alert & Oriented x4 to person, place, time, situation. Moves all ext x4 PSYCH: Appropriate mood and affect. 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 Thoracic spine MRI at the time showed extensive bilateral paraspinal abscess, discitis, osteomyelitis , right lung consolidation, epidural abscess. S/p T4-5 decompressive laminectomy , evacuation of epidural abscess and granulation tissue and evacuation thoracic paraspinous abscess on 05/25/16. 04/15 blood cultures grew MSSA. Repeat blood cultures 06/14/16 were negative. Expectorated sputum, fluid culture, and back wound all with MSSA. Infectious disease evaluated the patient and made recommendations of Rocephin 2 g IV with end date 07/19/16, along with Biaxin and Linezolid. 06/[address] scan of the thoracic spine showed significant improvement with decrease in soft tissue prominence; Paraspinal abnormality is less prominent. -ID following. Patient is on Cefoxitin, Zyvox and Biaxin - Remove Caro catheter and sent tip for C/S - Reconsult neurosurgery as needed. - physical therapy. - pain control with a bowel regimen. - follow repeat blood cultures. Anemia Chronic. Likely s/t to chronic disease. - Follow CBC and transfuse if Hb < 7. - Repeat labs pending. Acute renal failure/ Hyponatremia Likely prerenal. - Continue IV fluids and monitor. - Avoid nephrotoxic agents. IV drug abuse/ongoing substance abuse: He admits to snorting Dilaudid prior to coming into the hospital. Patient is known to inject using the lines even while he is in the hospital. I firmly counseled him that this will not be tolerated. He does exhibit consistent narcotic seeking behavior. I advised him he will only receive the Percocet as ordered currently. His dose will not be escalated unless there is objective evidence supporting his claim of pain. Nicotine dependence The patient smokes 5 cigarettes daily. - Cessation instruction given. DVT Prophylaxis: SCDs. Patient is thrombocytopenic. Ananya Jimenes MD July 05, 2016 13:05
[2016-07-06] MEDS: cefTRIAXone INJ 2,000 MG in SODIUM CHLORIDE 0.9% INJ 100 ML IV SCH ×2 (00:24→21:43)
[2016-07-06] MEDS: oxyCODONE/ACETAMINOPHEN 10 MG/325 MG TAB PO PRN ×6 (00:27→21:44)
[2016-07-06 00:35] VITALS: BP 121/58; PULSE 95; RESP 18; TEMP 97.6; O2SAT 95
[2016-07-06] MEDS: ceFOXitin INJ 2 GM in SODIUM CHLORIDE 0.9% INJ 100 ML IV SCH ×2 (02:04→13:32)
[2016-07-06] MEDS: SODIUM CHLOR 0.9% 1000 ML INJ 1,000 ML IV SCH ×2 (04:11→13:32)
[2016-07-06 04:27] VITALS: BP 122/56; PULSE 89; RESP 18; TEMP 98.7; O2SAT 95
[2016-07-06 08:00] VITALS: BP 112/77; PULSE 91; RESP 16; TEMP 97.5; O2SAT 94
[2016-07-06] MEDS: DOCUSATE SODIUM 100 MG CAP PO SCH ×3 (09:00→21:43)
[2016-07-06] MEDS: LINEZOLID 600 MG TAB PO SCH ×2 (09:12→21:43)
[2016-07-06] MEDS: CLARITHROMYCIN 500 MG TAB PO SCH ×2 (09:12→21:43)
[2016-07-06] MEDS: SODIUM CHLORIDE 0.9% FLUSH 10 ML FLUSH IV FLUSH SCH ×2 (09:13→21:44)
--- NOTE | 2016-07-06 10:55 | HHI.PR ---
Subjective Remarks Patient has been refusing lab draws. We had an extensive discussion about the goals of treatment in the Hospital and necessity of blood work while he is getting treatment. He agreed to have lab work. He continues to report pain. States he will need pain medications for the rest of his life. Objective Vitals Vital Signs Date Time Temp Pulse Resp B/P Pulse Ox O2 Delivery O2 Flow Rate FiO2 07/06/16 08:00 97.5 91 16 112/77 94 07/06/16 04:27 98.7 89 18 122/56 95 07/06/16 00:35 97.6 95 18 121/58 95 07/05/16 20:00 97.3 96 16 112/75 95 07/05/16 17:45 21 07/05/16 16:00 97.0 94 18 101/76 96 07/05/16 13:28 96 21 07/05/16 12:00 98.0 92 18 101/66 94 I/O 07/05/16 07/05/16 07/05/16 07/06/16 07/06/16 07/06/16 07:00 15:00 23:00 07:00 15:00 23:00 Intake Total 984 ml 1443 ml 600 ml 1342 ml Output Total 600 ml 800 ml 600 ml 600 ml Balance 384 ml 643 ml 0 ml 742 ml Intake Oral 480 ml 720 ml 600 ml 720 ml IV Total 504 ml 723 ml 622 ml Output Urine Total 600 ml 800 ml 600 ml 600 ml # Bowel Movements 1 0 0 Result Diagram: 07/04/16 1107 07/04/16 0306 Imaging Last Impressions Renal Ultrasound 07/04/16 0000 Signed Impressions: Service Date/Time: Monday, July 04, 2016 11:29 - CONCLUSION: 1. Echogenic kidneys which can be seen with medical renal disease. 2. Echogenic liver and splenomegaly. Roni Dominique MD Central Venous Line 07/04/16 0000 Signed Impressions: Service Date/Time: Monday, July 04, 2016 00:00 - CONCLUSION: Uncomplicated Permcath removal. Roshan Jain MD Chest X-Ray 07/03/16 2251 Signed Impressions: Service Date/Time: Sunday, July 03, 2016 23:01 - CONCLUSION: Mild right lung base atelectasis and/or infiltrate is seen. Soco Oliveira MD Objective Remarks GENERAL: Patient in no apparent distress. He was sleeping as I entered the room. CARDIOVASCULAR: Normal rate and regular rhythm without murmurs, gallops, or rubs. RESPIRATORY: Good respiratory efforts. Breath sounds equal and clear to auscultation bilaterally. GASTROINTESTINAL: Abdomen soft, non-tender, non-distended. Normal active bowel sounds MUSCULOSKELETAL: Extremities without cyanosis, or edema. On his back in the thoracic region, there are some intact Steri-Strips. He reports tenderness to palpation all over his back. NEURO: Alert & Oriented x4 to person, place, time, situation. Moves all ext x4 PSYCH: Appropriate mood and affect. 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 Thoracic spine MRI at the time showed extensive bilateral paraspinal abscess, discitis, osteomyelitis , right lung consolidation, epidural abscess. S/p T4-5 decompressive laminectomy , evacuation of epidural abscess and granulation tissue and evacuation thoracic paraspinous abscess on 05/25/16. 3/4 blood cultures grew MSSA. Repeat blood cultures 06/14/16 were negative. Expectorated sputum, fluid culture, and back wound all with MSSA. Infectious disease evaluated the patient and made recommendations of Rocephin 2 g IV with end date 07/19/16, along with Biaxin and Linezolid. 06/[address] scan of the thoracic spine showed significant improvement with decrease in soft tissue prominence; Paraspinal abnormality is less prominent. - ID following. Patient is on Cefoxitin, Zyvox and Biaxin - Remove Caro catheter and sent tip for C/S - Reconsult neurosurgery as needed. - physical therapy. - pain control with a bowel regimen. 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 Discussed with infectious disease. Anemia Chronic. Likely s/t to chronic disease. - Follow CBC and transfuse if Hb < 7. -Patient has been refusing labs. He agreed to have repeat labs today. Acute renal failure/Hyponatremia Likely prerenal. - Continue IV fluids. Repeat labs today - Avoid nephrotoxic agents. IV drug abuse/ongoing substance abuse: He admits to snorting Dilaudid prior to coming into the hospital. Patient is known to inject using the lines even while he is in the hospital. I firmly counseled him that this will not be tolerated. He does exhibit consistent narcotic seeking behavior. I advised him he will only receive the Percocet as ordered currently. His dose will not be escalated unless there is objective evidence supporting his claim of pain. - I agreed to resume Robaxin which she was getting previously. Nicotine dependence The patient smokes 5 cigarettes daily. - Cessation instruction given. DVT Prophylaxis: SCDs. Patient is thrombocytopenic. Ananya Jimenes MD July 06, 2016 10:55
[2016-07-06 12:00] VITALS: BP 112/84; PULSE 93; RESP 16; TEMP 97.3; O2SAT 95
--- NOTE | 2016-07-06 12:00 | HHI.IDPN ---
Subjective Subjective Remarks 41 year old male with MSSA recurrent epidural abscess/osteo, S/P surgery. has developed M abscessus sepsis Signed out AMA, and came back for back pain Notes reviewed Temps ok Caro has been removed Cath tip with <15 cfu GNR Has new BC with Gram variable kris, ?mycobacteria BC 06/14 and 06/19 with M abscessus Refused blood work yesterday D/W Dr Jimenes renal US no hydro Antibiotics Vanco x 1 Zyvox Biaxin Cefoxitin Lines PIV Past Medical History Reviewed Allergies: Coded Allergies: Aspirin (Verified Allergy, Severe, 07/03/16) PATIENT STATES HE HAD A HOLE IN HIS HEART WHEN HE WAS BORN AND HE WAS TOLD NOT TO TAKE ASPIRIN. LONGTERM MAR STATES NO KNOWN ALLERGIES PATIENT DENIES ALLERGY TO ASPIRIN. 04/01/13 Objective . Vital Signs Date Time Temp Pulse Resp B/P Pulse Ox O2 Delivery O2 Flow Rate FiO2 07/06/16 08:00 97.5 91 16 112/77 94 07/06/16 04:27 98.7 89 18 122/56 95 07/06/16 00:35 97.6 95 18 121/58 95 07/05/16 20:00 97.3 96 16 112/75 95 07/05/16 17:45 21 07/05/16 16:00 97.0 94 18 101/76 96 07/05/16 13:28 96 21 07/05/16 12:00 98.0 92 18 101/66 94 07/05/16 07/05/16 07/06/16 15:00 23:00 07:00 Intake Total 1443 ml 600 ml 1342 ml Output Total 800 ml 600 ml 600 ml Balance 643 ml 0 ml 742 ml Intake Oral 720 ml 600 ml 720 ml IV Total 723 ml 622 ml Output Urine Total 800 ml 600 ml 600 ml # Bowel Movements 0 0 . Microbiology Date/Time Procedure Status Source Growth 07/03/16 23:30 Aerobic Blood Culture - Preliminary Resulted Blood Peripheral Gram Variable Kris 07/03/16 23:30 Anaerobic Blood Culture - Preliminary Resulted Blood Peripheral NO GROWTH IN 3 DAYS 07/03/16 23:30 Aerobic Blood Culture - Preliminary Resulted Blood Peripheral NO GROWTH IN 3 DAYS 07/03/16 23:30 Anaerobic Blood Culture - Preliminary Resulted Blood Peripheral NO GROWTH IN 3 DAYS 07/04/16 05:28 Urine Culture - Final Complete Urine Catheterized Urine NO GROWTH IN 48 HOURS. 07/04/16 15:36 Wound Culture - Final Complete Catheter Tip Other Gram Negative Kris Imaging Last Impressions Renal Ultrasound 07/04/16 0000 Signed Impressions: Service Date/Time: Monday, July 04, 2016 11:29 - CONCLUSION: 1. Echogenic kidneys which can be seen with medical renal disease. 2. Echogenic liver and splenomegaly. Roni Dominique MD Central Venous Line 07/04/16 0000 Signed Impressions: Service Date/Time: Monday, July 04, 2016 00:00 - CONCLUSION: Uncomplicated Permcath removal. Roshan Jain MD Chest X-Ray 07/03/16 2251 Signed Impressions: Service Date/Time: Sunday, July 03, 2016 23:01 - CONCLUSION: Mild right lung base atelectasis and/or infiltrate is seen. Soco Oliveira MD Physical Exam GENERAL: awake and alert, not in respiratory distress. SKIN: Warm and dry. No generalized rash, no ecchymoses and no evidence of embolic lesions. HEAD: Atraumatic. Normocephalic. No temporal wasting, or tenderness. EYES: [place] conjunctiva. No petechia or hemorrhage. No scleral icterus. No injection or drainage. EARS, NOSE AND THROAT: Nose without bleeding or purulent nasal discharge. No sinus tenderness. Mucous membranes pink and moist. No oral lesions noted. No exudate. No oral thrush. NECK: Trachea midline. Supple and not tender, no meningeal signs CARDIOVASCULAR: Regular rate and rhythm. No murmurs, rubs or gallops heard RESPIRATORY: Clear to auscultation. Breath sounds equal bilaterally. No rales , wheezing or rhonchi ABDOMEN: Soft, non-tender, nondistended. Bowel sounds present and normoactive. No guarding. No rebound. No organomegaly. EXTREMITIES: No clubbing, cyanosis, or edema.No joint effusion, has good ROM. No calf tenderness. Well perfused and warm. NEUROLOGICAL: Awake and alert. Cranial nerves grossly intact. Motor grossly within normal limits. BACK: Incision is dry, no redness or drainage PSYCHIATRIC: Normal affect, calm and cooperative. 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 Paraspinal abscess/epidural abscess S/P OR - per NS, abscess did not communicate in thoracic cavity Previous Rx for osteo thoracic, removal of thoracic hardware last 2013, with MSSA Previous Rx MSSA osteo of spine 2011 Known IVDU Fluid collection over RSC joint, aspirated, C/S negative, looks better Neutropenia, recurrent, likely due to ongoing infection M abscessus bacteremia, likely line related - patient has used his Caro for self injection Thrombocytopenia, ?DIC Acute renal failure, ?meds, ?infarct, ?volume RECOMMENDATION Rx Mycobacteria: Cefoxitin, Zyvox and Biaxin Give another dose of Vanco reorder blood work Follow C/S Monitor progress D/W Genie Vogt MD July 06, 2016 12:00
[2016-07-06 12:53] LABS: AUTOMATED NEUTROPHIL # 1.8 TH/MM3 (1.8-7.7); BASOPHIL % 0.9 % (0.0-2.0); HEMATOCRIT 24.5 % (39.0-51.0); LYMPHOCYTE # 1.5 TH/MM3 (1.0-4.8); MEAN CELL VOLUME 66.3 FL (80.0-100.0); MEAN CORPUSCULAR HEMOGLOBIN 22.4 PG (27.0-34.0); MEAN CORPUSCULAR HGB CONC 33.8 % (32.0-36.0); MONO % 8.6 % (0.0-8.0); NEUT % 48.5 % (16.0-70.0); PLATELET COUNT 82 TH/MM3 (150-450); RED CELL DISTRIBUTION WIDTH 20.5 % (11.6-17.2); WHITE BLOOD COUNT 3.7 TH/MM3 (4.0-11.0)
[2016-07-06 12:58] LABS: HEMO FLAGS AUTO DIFF
[2016-07-06] MEDS ORDERED: VANCOMYCIN INJ 1,500 MG in SODIUM CHLORID 0.9% 500 ML INJ 500 ML IV ONE (13:00)
[2016-07-06 13:10] LABS: BICARBONATE 19.3 MEQ/L (21.0-32.0); POTASSIUM 4.2 MEQ/L (3.5-5.1)
[2016-07-06 13:31] LABS: BANDS 5 % (0-6); BASOPHILS 1 % (0-2); EOSINOPHILS 1 % (0-4); NEUTROPHIL # MANUAL DIFF 2.2 TH/MM3 (1.8-7.7); PLATELET ESTIMATE SMEAR LOW (NORMAL); PLATELET MORPHOLOGY NORMAL (NORMAL); POLYS (SEG NEUTROPHILS) 55 % (16-70); SCAN/DIFF FINAL DIFF MANUAL; WBC DIFF SAMPLE 100
[2016-07-06] MEDS: METHOCARBAMOL 500 MG TAB PO SCH ×2 (13:31→21:43)
[2016-07-06 13:32] LABS: OVALOCYTES 1+ (NORMAL)
[2016-07-06 16:00] VITALS: BP 123/85; PULSE 105; RESP 16; TEMP 97.7; O2SAT 95
[2016-07-06] MEDS: ALBUTEROL SULFATE 90 MCG/ACT HFA 18 GM INHALER INH PRN (18:06)
[2016-07-06 19:43] VITALS: BP 136/97; PULSE 95; RESP 16; TEMP 97.8; O2SAT 96
[2016-07-07] MEDS: SODIUM CHLOR 0.9% 1000 ML INJ 1,000 ML IV SCH ×3 (00:11→19:52)
[2016-07-07] MEDS: ceFOXitin INJ 2 GM in SODIUM CHLORIDE 0.9% INJ 100 ML IV SCH ×2 (00:14→12:34)
[2016-07-07] MEDS: oxyCODONE/ACETAMINOPHEN 10 MG/325 MG TAB PO PRN ×6 (01:52→21:46)
[2016-07-07] MEDS: METHOCARBAMOL 500 MG TAB PO SCH ×3 (06:02→21:46)
[2016-07-07] MEDS: SODIUM CHLORIDE 0.9% FLUSH 10 ML FLUSH IV FLUSH SCH ×2 (09:00→21:46)
[2016-07-07] MEDS: CLARITHROMYCIN 500 MG TAB PO SCH ×2 (09:16→21:46)
[2016-07-07] MEDS: DOCUSATE SODIUM 100 MG CAP PO SCH ×2 (09:16→21:00)
[2016-07-07] MEDS: LINEZOLID 600 MG TAB PO SCH ×2 (09:16→21:45)
[2016-07-07 09:30] VITALS: BP 137/93; PULSE 95; RESP 12; TEMP 97.6; O2SAT 98
[2016-07-07 12:10] VITALS: BP 111/74; PULSE 99; RESP 12; TEMP 97.3; O2SAT 97
--- NOTE | 2016-07-07 13:45 | HHI.PR ---
Subjective Remarks Patient still complaining of severe pain. He reports that there is something wrong with his back and is requesting to new imaging. He states he has to stay still. Any movements cause excruciating pain. He refused IVF. He refused lab this AM. He allowed them to be drawn this afternoon. Objective Vitals Vital Signs Date Time Temp Pulse Resp B/P Pulse Ox O2 Delivery O2 Flow Rate FiO2 07/07/16 12:10 97.3 99 12 111/74 97 07/07/16 09:30 97.6 95 12 137/93 98 07/07/16 07:02 14 07/06/16 19:43 97.8 95 16 136/97 96 07/06/16 16:00 97.7 105 16 123/85 95 I/O 07/06/16 07/06/16 07/06/16 07/07/16 07/07/16 07/07/16 07:00 15:00 23:00 07:00 15:00 23:00 Intake Total 1342 ml 600 ml 1138 ml 5130 ml Output Total 600 ml 900 ml 450 ml 750 ml Balance 742 ml -300 ml 688 ml 4380 ml Intake Oral 720 ml 480 ml 480 ml 4803 ml IV Total 622 ml 120 ml 658 ml 327 ml Output Urine Total 600 ml 900 ml 450 ml 750 ml # Bowel Movements 0 0 0 Result Diagram: 07/06/16 1224 07/06/16 1224 Objective Remarks GENERAL: Patient in no apparent distress. He is laying in bed and appear to be comfortable. CARDIOVASCULAR: Normal rate and regular rhythm without murmurs, gallops, or rubs. RESPIRATORY: Good respiratory efforts. Breath sounds equal and clear to auscultation bilaterally. GASTROINTESTINAL: Abdomen soft, non-tender, non-distended. Normal active bowel sounds MUSCULOSKELETAL: Extremities without cyanosis, or edema. On his back in the thoracic region, He reports tenderness to palpation all over his back. NEURO: Alert & Oriented x4 to person, place, time, situation. Moves all ext x4 PSYCH: Appropriate mood and affect. 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 Thoracic spine MRI at the time showed extensive bilateral paraspinal abscess, discitis, osteomyelitis , right lung consolidation, epidural abscess. S/p T4-5 decompressive laminectomy , evacuation of epidural abscess and granulation tissue and evacuation thoracic paraspinous abscess on 05/25/16. 3/4 blood cultures grew MSSA. Repeat blood cultures 06/14/16 were negative. Expectorated sputum, fluid culture, and back wound all with MSSA. Infectious disease evaluated the patient and made recommendations of Rocephin 2 g IV with end date 07/19/16, along with Biaxin and Linezolid. - ID following. Patient is on Cefoxitin, Zyvox and Biaxin - Remove Caro catheter and sent tip for C/S - Reconsult neurosurgery as needed. - physical therapy. - pain control with a bowel regimen. 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 - Patient complaining of worsening pain. 06/[address] scan of the thoracic spine showed significant improvement with decrease in soft tissue prominence; Paraspinal abnormality is less prominent. However he left the Hospital AMA and returned. Will order a repeat CT to confirm there has been no progression. Objective evidence would be helpful as he is a known drug and will likely ask for more pain medications. Consider Neurosurgery reconsult. Anemia Chronic. Likely s/t to chronic disease, infection. - Follow CBC and transfuse if Hb < 7. Acute renal failure/Hyponatremia Likely prerenal. - Slowly improving. Patient has been refusing IVF and regular lab draw. He was counseled. - Avoid nephrotoxic agents. - Nephrology was consulted. IV drug abuse/ongoing substance abuse: He admits to snorting Dilaudid prior to coming into the hospital. Patient is known to inject using the lines even while he is in the hospital. I firmly counseled him that this will not be tolerated. He does exhibit consistent narcotic seeking behavior. I advised him he will only receive the Percocet as ordered currently. His dose will not be escalated unless there is objective evidence supporting his claim of pain. - Continue Robaxin. Nicotine dependence The patient smokes 5 cigarettes daily. - Cessation instruction given. DVT Prophylaxis: SCDs. Patient is thrombocytopenic. Ananya Jimenes MD July 07, 2016 13:45
[2016-07-07 13:58] LABS: HEMATOCRIT 23.7 % (39.0-51.0); MEAN CELL VOLUME 67.2 FL (80.0-100.0); MEAN CORPUSCULAR HGB CONC 32.7 % (32.0-36.0); PLATELET COUNT 121 TH/MM3 (150-450); RED BLOOD COUNT 3.53 MIL/MM3 (4.50-5.90); RED CELL DISTRIBUTION WIDTH 21.2 % (11.6-17.2); REVIEW FLAG FINAL; WHITE BLOOD COUNT 4.1 TH/MM3 (4.0-11.0)
[2016-07-07 14:32] LABS: BICARBONATE 18.9 MEQ/L (21.0-32.0); INDIRECT BILIRUBIN 0.1 MG/DL (0.0-0.8); POTASSIUM 4.2 MEQ/L (3.5-5.1); TOTAL BILIRUBIN ADULT 0.2 MG/DL (0.2-1.0)
--- NOTE | 2016-07-07 15:11 | HHI.IDPN ---
Subjective Subjective Remarks 41 year old male with MSSA recurrent epidural abscess/osteo, S/P surgery. has developed M abscessus sepsis Signed out AMA, and came back for back pain Notes reviewed Temps ok Cath tip with <15 cfu GNR Has new BC with Gram variable kris, ?mycobacteria BC 06/14 and 06/19 with M abscessus Platelet count better Creatinine only slightly better renal US no hydro Antibiotics Zyvox Biaxin Cefoxitin Rocephin Lines PIV Past Medical History Reviewed Allergies: Coded Allergies: Aspirin (Verified Allergy, Severe, 07/03/16) PATIENT STATES HE HAD A HOLE IN HIS HEART WHEN HE WAS BORN AND HE WAS TOLD NOT TO TAKE ASPIRIN. GROUP HOME MAR STATES NO KNOWN ALLERGIES PATIENT DENIES ALLERGY TO ASPIRIN. 04/01/13 Objective . Vital Signs Date Time Temp Pulse Resp B/P Pulse Ox O2 Delivery O2 Flow Rate FiO2 07/07/16 12:10 97.3 99 12 111/74 97 07/07/16 09:30 97.6 95 12 137/93 98 07/07/16 07:02 14 07/06/16 19:43 97.8 95 16 136/97 96 07/06/16 16:00 97.7 105 16 123/85 95 07/06/16 07/06/16 07/07/16 14:59 22:59 06:59 Intake Total 600 ml 1138 ml 5130 ml Output Total 900 ml 450 ml 750 ml Balance -300 ml 688 ml 4380 ml Intake Oral 480 ml 480 ml 4803 ml IV Total 120 ml 658 ml 327 ml Output Urine Total 900 ml 450 ml 750 ml # Bowel Movements 0 0 0 . Laboratory Tests Test 07/06/16 07/07/16 12:24 13:41 White Blood Count 3.7 TH/MM3 4.1 TH/MM3 Red Blood Count 3.70 MIL/MM3 3.53 MIL/MM3 Hemoglobin 8.3 GM/DL 7.8 GM/DL Hematocrit 24.5 % 23.7 % Mean Corpuscular Volume 66.3 FL 67.2 FL Mean Corpuscular Hemoglobin 22.4 PG 22.0 PG Mean Corpuscular Hemoglobin 33.8 % 32.7 % Concent Red Cell Distribution Width 20.5 % 21.2 % Platelet Count 82 TH/MM3 121 TH/MM3 Mean Platelet Volume 8.8 FL 8.5 FL Neutrophils (%) (Auto) 48.5 % Lymphocytes (%) (Auto) 41.0 % Monocytes (%) (Auto) 8.6 % Eosinophils (%) (Auto) 1.0 % Basophils (%) (Auto) 0.9 % Neutrophils # (Auto) 1.8 TH/MM3 Lymphocytes # (Auto) 1.5 TH/MM3 Monocytes # (Auto) 0.3 TH/MM3 Eosinophils # (Auto) 0.0 TH/MM3 Basophils # (Auto) 0.0 TH/MM3 CBC Comment AUTO DIFF Differential Total Cells 100 Counted Neutrophils % (Manual) 55 % Band Neutrophils % 5 % Lymphocytes % 37 % Monocytes % 1 % Eosinophils % 1 % Basophils % 1 % Neutrophils # (Manual) 2.2 TH/MM3 Differential Comment FINAL DIFF MANUAL Platelet Estimate LOW Platelet Morphology Comment NORMAL Ovalocytes 1+ Laboratory Tests Test 07/06/16 07/07/16 12:24 13:41 Sodium Level 135 MEQ/L 138 MEQ/L Potassium Level 4.2 MEQ/L 4.2 MEQ/L Chloride Level 108 MEQ/L 108 MEQ/L Carbon Dioxide Level 19.3 MEQ/L 18.9 MEQ/L Anion Gap 8 MEQ/L 11 MEQ/L Blood Urea Nitrogen 35 MG/DL 35 MG/DL Creatinine 2.86 MG/DL 2.44 MG/DL Estimat Glomerular Filtration 24 ML/MIN 29 ML/MIN Rate Random Glucose 94 MG/DL 99 MG/DL Calcium Level 7.5 MG/DL 7.8 MG/DL Total Bilirubin 0.2 MG/DL Direct Bilirubin 0.1 MG/DL Indirect Bilirubin 0.1 MG/DL Aspartate Amino Transf 32 U/L (AST/SGOT) Alanine Aminotransferase 36 U/L (ALT/SGPT) Alkaline Phosphatase 238 U/L Total Protein 6.1 GM/DL Albumin 1.7 GM/DL Microbiology Date/Time Procedure Status Source Growth 07/04/16 15:36 Wound Culture - Final Complete Catheter Tip Other Gram Negative Kris Imaging Last Impressions Renal Ultrasound 07/04/16 0000 Signed Impressions: Service Date/Time: Monday, July 04, 2016 11:29 - CONCLUSION: 1. Echogenic kidneys which can be seen with medical renal disease. 2. Echogenic liver and splenomegaly. Roni Dominique MD Central Venous Line 07/04/16 0000 Signed Impressions: Service Date/Time: Monday, July 04, 2016 00:00 - CONCLUSION: Uncomplicated Permcath removal. Roshan Jain MD Chest X-Ray 07/03/16 5576 Signed Impressions: Service Date/Time: Sunday, July 03, 2016 23:01 - CONCLUSION: Mild right lung base atelectasis and/or infiltrate is seen. Soco Oliveira MD Physical Exam GENERAL: awake and alert, not in respiratory distress. SKIN: Warm and dry. No generalized rash, no ecchymoses and no evidence of embolic lesions. HEAD: Atraumatic. Normocephalic. No temporal wasting, or tenderness. EYES: [place] conjunctiva. No petechia or hemorrhage. No scleral icterus. No injection or drainage. EARS, NOSE AND THROAT: Nose without bleeding or purulent nasal discharge. No sinus tenderness. Mucous membranes pink and moist. No oral lesions noted. No exudate. No oral thrush. NECK: Trachea midline. Supple and not tender, no meningeal signs CARDIOVASCULAR: Regular rate and rhythm. No murmurs, rubs or gallops heard RESPIRATORY: Clear to auscultation. Breath sounds equal bilaterally. No rales , wheezing or rhonchi ABDOMEN: Soft, non-tender, nondistended. Bowel sounds present and normoactive. No guarding. No rebound. No organomegaly. EXTREMITIES: No clubbing, cyanosis, or edema.No joint effusion, has good ROM. No calf tenderness. Well perfused and warm. NEUROLOGICAL: Awake and alert. Cranial nerves grossly intact. Motor grossly within normal limits. BACK: Incision is dry, no redness or drainage PSYCHIATRIC: Normal affect, calm and cooperative. 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 Paraspinal abscess/epidural abscess S/P OR - per NS, abscess did not communicate in thoracic cavity Previous Rx for osteo thoracic, removal of thoracic hardware last 2013, with MSSA Previous Rx MSSA osteo of spine 2011 Known IVDU Fluid collection over RSC joint, aspirated, C/S negative, looks better Neutropenia, recurrent, likely due to ongoing infection M abscessus bacteremia, likely line related - patient has used his Caro for self injection Thrombocytopenia, ?DIC Acute renal failure, ?meds, ?infarct, ?volume RECOMMENDATION Rx Mycobacteria: Cefoxitin, Zyvox and Biaxin Stop Rocephin Continue IV Vanco Renal consult Follow C/S Monitor progress Dr Cruz covering 07/08-07/10 Please call if with any ID issue or concerns during those dates Genie Wadsworth MD July 07, 2016 15:11
[2016-07-07] MEDS ORDERED: Vancomycin Consult Pharmacy 1 EA OTHER SCH (15:15)
[2016-07-07] MEDS ORDERED: VANCOMYCIN INJ 1,000 MG in SODIUM CHLOR 0.9% 250 ML INJ 250 ML IV ONE (15:15)
[2016-07-07 16:00] VITALS: BP 137/91; PULSE 100; RESP 12; TEMP 97.6; O2SAT 97
--- NOTE | 2016-07-07 16:17 | PD.CONS ---
[facility] Service Nephrology Consult Requested By Reason for Consult Acute Renal Failure Primary Care Physician Bienvenido Menjivar History of Present Illness We were consulted today to assist in the management of this 41 y/o male patient. He was admitted last month for back pain, was diagnosed with epidural abscess, had surgical intervention and was sent to [facility] for IV antibiotic management. HE apparently left AMA due to not receiving adequate pain medications, left with a Caro in place. After a few days he came back to have catheter removed and to continue antibiotics. The tip of Caro was positive for gram negative rods, the blood cultures were also positive. He has a hx of IVDA and hepatitis C. He reports diarrhea for over one week with decreased oral intake. His creatinine was 0.93 on 06/26. This readmission creatinine was 3.19, has improved daily and is 2.44 today. He has been on IVF until today as he is refusing to let it run. Urine output is adequate, he notes dark urine at home. Labs showing pancytopenia, metabolic acidosis, and lactic acid of 3 that has normalized. He was also previously hypokalemic. He appears malnourished, is in no distress, and is a full code. (Annelise Miranda) Review of Systems Constitutional: COMPLAINS OF: Fatigue, Fever, Change in appetite, DENIES: Weight loss Cardiovascular: DENIES: Chest pain, Lower Extremity Edema Gastrointestinal: DENIES: Abdominal pain Musculoskeletal: DENIES: Joint pain (Annelise Miranda) Past Family Social History Allergies: Coded Allergies: Aspirin (Verified Allergy, Severe, 07/03/16) PATIENT STATES HE HAD A HOLE IN HIS HEART WHEN HE WAS BORN AND HE WAS TOLD NOT TO TAKE ASPIRIN. HALFWAY MAR STATES NO KNOWN ALLERGIES PATIENT DENIES ALLERGY TO ASPIRIN. 04/01/13 Past Medical History Hepatitis C Osteomyelitis of the spine in 2011 due to MSSA Osteomyelitis of the thoracic spine in 2013 treated, culture had MSSA, had removal of the hardware at that time Episode of M abscesses and Pseudomonas sepsis felt to be due to PICC line infection back in 2013 Episode of back abscess again in January 2016, treated at [facility] had drainage, and a long course of IV antibiotics Known IV drug use Past Surgical History History of laminectomy with fusion of the thoracic spine 2011 History of decompressive laminectomy discectomy and T3 T6 fusion with autograft in March 2013 Removal of thoracic hardware and evacuation of a deep thoracic wound abscess in September 2013 Reported Medications Denies any home meds prior to admission Active Ordered Medications Current Medications Medications (Trade) Dose Ordered Sig/Rony Route Start Time Stop Time Status Last Admin (NS 1000 ml Inj) 1,000 ml @ 100 mls/hr Q10H IV 07/04/16 02:11 07/07/16 00:11 (NS Flush) 2 ml UNSCH PRN IV FLUSH 07/04/16 02:15 (NS Flush) 2 ml BID IV FLUSH 07/04/16 09:00 07/07/16 09:00 (Tylenol) 650 mg Q4H PRN PO 07/04/16 02:15 (Zofran Inj) 4 mg Q6H PRN IVP 07/04/16 02:15 (Colace) 100 mg Q12HR PO 07/04/16 09:00 07/07/16 09:16 (Senokot) 17.2 mg Q12H PRN PO 07/04/16 02:15 (Tylenol) 650 mg Q6H PRN PO 07/04/16 02:15 07/04/16 13:37 (Narcan Inj) 0.4 mg UNSCH PRN IV 07/04/16 02:15 (Biaxin) 500 mg Q12HR PO 07/04/16 21:00 07/07/16 09:16 Linezolid 600 mg 600 mg Q12HR PO 07/04/16 11:00 07/07/16 09:16 (Mefoxin Inj/NS Inj) 100 ml @ 200 mls/hr Q12H IV 07/04/16 13:00 07/07/16 12:34 (Percocet 10-325 Mg) 1 tab Q4H PRN PO 07/04/16 11:30 07/07/16 13:59 (Robaxin) 500 mg Q8HR PO 07/06/16 14:00 07/07/16 13:59 Albuterol Sulfate 2 puff 2 puff Q4H PRN INH 07/06/16 17:49 07/06/16 18:06 Pharmacy Profile Note 0 ml @ 0 mls/hr UNSCH OTHER 07/07/16 15:15 (Vancomycin Inj/ NS 500 ml Inj) 515 ml @ 257.5 mls/ hr ONCE ONCE IV 07/08/16 01:00 07/08/16 02:59 Family History No hx of renal disorders Social History active smoker hx of IVDA one year ago per patient, also snorts Dilaudid regularly living: lives alone, questionably homeless marital: single work: he is disabled code status: full (RubenAnneliseclari LOPES) Physical Exam Vital Signs Vital Signs Date Time Temp Pulse Resp B/P Pulse Ox O2 Delivery O2 Flow Rate FiO2 07/07/16 16:00 97.6 100 12 137/91 97 07/07/16 12:10 97.3 99 12 111/74 97 07/07/16 09:30 97.6 95 12 137/93 98 07/07/16 07:02 14 07/06/16 19:43 97.8 95 16 136/97 96 Physical Exam Malnourished, cachectic middle aged male, disheveled asleep but oriented x 3 when awake poor dentition S1/S2, regular rate, no murmurs lungs clear abdomen + ascites, soft, non tender no scrotal edema no lower extremity edema, skin intact upper thoracic spine with dressing in place Laboratory Laboratory Tests Test 07/07/16 13:41 White Blood Count 4.1 Red Blood Count 3.53 Hemoglobin 7.8 Hematocrit 23.7 Mean Corpuscular Volume 67.2 Mean Corpuscular Hemoglobin 22.0 Mean Corpuscular Hemoglobin 32.7 Concent Red Cell Distribution Width 21.2 Platelet Count 121 Mean Platelet Volume 8.5 Sodium Level 138 Potassium Level 4.2 Chloride Level 108 Carbon Dioxide Level 18.9 Anion Gap 11 Blood Urea Nitrogen 35 Creatinine 2.44 Estimat Glomerular Filtration 29 Rate Random Glucose 99 Calcium Level 7.8 Total Bilirubin 0.2 Direct Bilirubin 0.1 Indirect Bilirubin 0.1 Aspartate Amino Transf 32 (AST/SGOT) Alanine Aminotransferase 36 (ALT/SGPT) Alkaline Phosphatase 238 Total Protein 6.1 Albumin 1.7 Date/Time Procedure Status Source Growth 07/04/16 15:36 Wound Culture - Final Complete Catheter Tip Other Gram Negative Kris 07/04/16 05:28 Urine Culture - Final Complete Urine Catheterized Urine NO GROWTH IN 48 HOURS. 07/03/16 23:30 Aerobic Blood Culture - Preliminary Resulted Blood Peripheral NO GROWTH IN 4 DAYS 07/03/16 23:30 Anaerobic Blood Culture - Preliminary Resulted Blood Peripheral NO GROWTH IN 4 DAYS (Annelise Miranda) Result Diagram: 07/07/16 1341 07/07/16 1341 Imaging Last Impressions Renal Ultrasound 07/04/16 0000 Signed Impressions: Service Date/Time: Monday, July 04, 2016 11:29 - CONCLUSION: 1. Echogenic kidneys which can be seen with medical renal disease. 2. Echogenic liver and splenomegaly. Roni Dominique MD Central Venous Line 07/04/16 0000 Signed Impressions: Service Date/Time: Monday, July 04, 2016 00:00 - CONCLUSION: Uncomplicated Permcath removal. Roshan Jain MD Chest X-Ray 07/03/16 2251 Signed Impressions: Service Date/Time: Sunday, July 03, 2016 23:01 - CONCLUSION: Mild right lung base atelectasis and/or infiltrate is seen. K. Matias Oliveira MD (Annelise Miranda) Assessment and Plan Problem List: (1) Renal failure Plan: In a patient with normal creatinine at baseline nonoliguric renal failure PREMA may be due to sepsis with diminished renal perfusion, he has had diarrhea therefore dehydration may be contributing there are no electrolyte issues currently, K was replaced renal US negative for obstructive etiology his renal function is improving, continue IVF if he allows, oral intake encouraged obtain urine electrolytes, serologies avoid nephrotoxic substances, monitor drug levels when appropriate obtain complement levels to evaluate for post infections glomerulonephritis daily renal panel, monitor urine output (2) Epidural abscess Plan: ID is following, ? mycobacteria (gram negative variable rods) he is currently on cefoxitin, Zyvox, Biaxin, and vancomycin lactic acid has improved monitor drug levels, follow cultures, monitor clinically (3) Thrombocytopenia Plan: ? DIC improving, he does have a history of Hep C no acute bleeding (4) Intravenous drug abuse in remission Plan: encourage abstinence (5) Tobacco abuse Plan: cessation advised he was offered nicotine patch (Annelise Miranda) Assessment and Plan patient was seen and examined. PREMA could have pre-renal azotemia, but could have progressed to ATN. Also consider post infectious GN. Ordered serologies. Continue supportive care, avoid nephrotoxic agents. (Freeman Aden MD) Problem Qualifiers (1) Renal failure: Qualified Code: N17.9 - Acute renal failure, unspecified acute renal failure type Annelise Miranda July 07, 2016 16:17 Freeman Aden MD July 09, 2016 11:35
[2016-07-07 20:00] VITALS: BP 133/91; PULSE 105; RESP 24; TEMP 97.8; O2SAT 98
--- NOTE | 2016-07-07 20:09 | RADRPT ---
EXAM DATE/TIME: 07/07/2016 18:47 [place] COMPARISON: CT THORACIC SPINE W CONTRAST, June 24, 2016, 8:48. CT THORACIC SPINE W/O CONTRAST, June 02, 2016, 20 :27. INDICATIONS : Verterbral osteomyelitis; patient complains of severe pain. RADIATION DOSE: 35.86 CTDIvol (mGy) MEDICAL HISTORY : IV drug abuse SURGICAL HISTORY : ENCOUNTER: Initial ACUITY: 1 day PAIN SCALE: 10/10 LOCATION: upper back TECHNIQUE: Volumetric scanning of the thoracic spine was performed. Multiplanar reconstructions in the sagittal , coronal and oblique axial planes were performed. Using automated exposure control and adjustment o f the mA and/or kV according to patient size, radiation dose was kept as low as reasonably achievable to obtain optimal diagnostic quality images. FINDINGS: Multiple previous studies described in detail the changes of the thoracic spine. The only significant change on the current study relative to the previous exams has been the development of small posteri or layering of bilateral pleural effusions as well as worsening consolidation within the right lung b ase. The paraspinal soft tissue swelling centered at the approximate T7 level is unchanged. The chron ic sclerotic changes involving T7 are unchanged. 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 Chronic compression deformity of T9 with partial fusion of T8, T9, and T1 0 are also unchanged. The central canal appears grossly patent on this limited unenhanced study. CONCLUSION: 1. The only interval change has been the development of small bilateral pleural effusions and worseni ng consolidation within the right lower lobe. 2. Chronic changes involving the thoracic spine including paraspinal soft tissue swelling and chronic bony destructive changes as detailed in multiple prior studies consistent with osteomyelitis are sta ble. Gopal Cates Jr., MD on July 07, 2016 at 19:55 Board Certified Radiologist. This report was verified electronically.
[2016-07-07 22:00] VITALS: RESP 18
[2016-07-08] VITALS (7 sets, daily range): BP systolic 126–147; BP diastolic 81–98; PULSE 92–100; RESP 20; TEMP 97.5–97.8; O2SAT 96–99
[2016-07-08] MEDS: ceFOXitin INJ 2 GM in SODIUM CHLORIDE 0.9% INJ 100 ML IV SCH ×3 (00:14→14:16)
[2016-07-08] MEDS: VANCOMYCIN 1,500 MG/NS 500 ML IV ONE ×4 (00:14→00:33)
[2016-07-08] MEDS: oxyCODONE/ACETAMINOPHEN 10 MG/325 MG TAB PO PRN ×6 (02:00→21:42)
[2016-07-08] MEDS: SODIUM CHLOR 0.9% 1000 ML INJ 1,000 ML IV SCH (06:11)
[2016-07-08] MEDS: METHOCARBAMOL 500 MG TAB PO SCH ×3 (06:28→21:41)
[2016-07-08] MEDS: LINEZOLID 600 MG TAB PO SCH ×2 (10:10→21:41)
[2016-07-08] MEDS: DOCUSATE SODIUM 100 MG CAP PO SCH ×2 (10:10→21:00)
[2016-07-08] MEDS: CLARITHROMYCIN 500 MG TAB PO SCH ×2 (10:10→21:42)
[2016-07-08] MEDS: SODIUM CHLORIDE 0.9% FLUSH 10 ML FLUSH IV FLUSH SCH ×2 (10:11→21:42)
--- NOTE | 2016-07-08 11:41 | HHI.PR ---
Subjective Remarks Patient seen in the presence of the nurse. He is very disrespectful today. Using foul language when I advised him to get out of bed more. He refused IV antibiotics last night because he reports that it cabrera. IV is functioning well per nursing. He refused labs again this morning. Objective Vitals Vital Signs Date Time Temp Pulse Resp B/P Pulse Ox O2 Delivery O2 Flow Rate FiO2 07/08/16 08:00 97.7 94 20 138/81 97 07/08/16 07:45 99 21 07/08/16 06:33 97.8 93 20 136/92 97 07/08/16 04:00 Room Air 07/08/16 00:00 Room Air 07/08/16 00:00 97.5 96 20 126/88 97 07/07/16 22:00 18 07/07/16 20:00 97.8 105 24 133/91 98 07/07/16 19:15 Room Air 07/07/16 16:00 97.6 100 12 137/91 97 07/07/16 12:10 97.3 99 12 111/74 97 I/O 07/07/16 07/07/16 07/07/16 07/08/16 07/08/16 07/08/16 07:00 15:00 23:00 07:00 15:00 23:00 Intake Total 5130 ml 600 ml 720 ml 200 ml Output Total 750 ml 1575 ml 1325 ml Balance 4380 ml -975 ml -605 ml 200 ml Intake Oral 4803 ml 600 ml 720 ml 200 ml IV Total 327 ml Output Urine Total 750 ml 1575 ml 1325 ml # Voids 2 # Bowel Movements 0 0 0 Result Diagram: 07/07/16 1341 07/07/16 1341 Objective Remarks GENERAL: Patient in no apparent distress. He is laying in bed and appear to be comfortable. Very irritable. CARDIOVASCULAR: Normal rate and regular rhythm without murmurs, gallops, or rubs. RESPIRATORY: Good respiratory efforts. Breath sounds equal and clear to auscultation bilaterally. GASTROINTESTINAL: Abdomen soft, non-tender, non-distended. Normal active bowel sounds MUSCULOSKELETAL: Extremities without cyanosis, or edema. On his back in the thoracic region, He reports tenderness to palpation all over his back. NEURO: Alert & Oriented x4 to person, place, time, situation. Moves all ext x4 PSYCH: Irritable A/P Assessment and Plan 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 Thoracic spine MRI at the time showed extensive bilateral paraspinal abscess, discitis, osteomyelitis , right lung consolidation, epidural abscess. S/p T4-5 decompressive laminectomy , evacuation of epidural abscess and granulation tissue and evacuation thoracic paraspinous abscess on 05/25/16. / blood cultures grew MSSA. Repeat blood cultures 06/14/16 were negative. Expectorated sputum, fluid culture, and back wound all with MSSA. Infectious disease evaluated the patient and made recommendations of Rocephin 2 g IV with end date 07/19/16, along with Biaxin and Linezolid. - ID following. Patient is on Cefoxitin, Zyvox and Biaxin - Remove Caro catheter and tip sent for C/S - Reconsult neurosurgery as needed. - physical therapy. - pain control with a bowel regimen. 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 - Patient complaining of persistent pain. 06/[address] scan of the thoracic spine showed significant improvement with decrease in soft tissue prominence; Paraspinal abnormality is less prominent. - Repeat CT on 07/08 did not reveal anything new on his spine. Patient encouraged to participate with PT and get out of bed. He becomes very disrespectful when I told him he needs to comply with the antibiotics. Realizing he will not get anymore pain medications, he became more upset, disrespectful to the staff and used foul language in the presence of the nurse. I advised the patient that we will not tolerate this behavior. If he is not accepting treatment and verbally abusing the staff and physician, he will need to be discharged. Unable to appropriately assessed and treat the rest of the patient condition at this time due to noncompliance. No new labs. Ananya Jimenes MD July 08, 2016 11:40 objective evidence supporting his claim of pain. - Continue Robaxin. Nicotine dependence The patient smokes 5 cigarettes daily. - Cessation instruction given. DVT Prophylaxis: SCDs. Patient is thrombocytopenic. Ananya Jimenes MD July 08, 2016 11:40
[2016-07-08 11:55] LABS: HEMATOCRIT 22.2 % (39.0-51.0); MEAN CELL VOLUME 66.5 FL (80.0-100.0); MEAN CORPUSCULAR HEMOGLOBIN 21.8 PG (27.0-34.0); MEAN CORPUSCULAR HGB CONC 32.8 % (32.0-36.0); PLATELET COUNT 124 TH/MM3 (150-450); RED BLOOD COUNT 3.34 MIL/MM3 (4.50-5.90); RED CELL DISTRIBUTION WIDTH 20.9 % (11.6-17.2); REVIEW FLAG FINAL; WHITE BLOOD COUNT 3.3 TH/MM3 (4.0-11.0)
[2016-07-08] MEDS ORDERED: VANCOMYCIN 1,500 MG/NS 500 ML IV ONE ×2 (12:00)
[2016-07-08 12:13] LABS: BICARBONATE 20.8 MEQ/L (21.0-32.0); POTASSIUM 4.7 MEQ/L (3.5-5.1)
[2016-07-08] MEDS: ALBUTEROL SULFATE 90 MCG/ACT HFA 18 GM INHALER INH PRN (14:22)
--- NOTE | 2016-07-08 15:10 | HHI.NPPN ---
Subjective History of Present Illness 41 year old with epidural abscess on antibiotics c/o back pain Review of Systems Musculoskeletal MS: Pain/Stiffness Objective Data Data 07/07/16 07/08/16 19:00 07:00 Intake Total 1320 ml Output Total 975 ml 1925 ml Balance -975 ml -605 ml Intake Oral 1320 ml Output Urine Total 975 ml 1925 ml # Voids 2 # Bowel Movements 0 Vital Signs Date Time Temp Pulse Resp B/P Pulse Ox O2 Delivery O2 Flow Rate FiO2 07/08/16 12:00 97.7 92 20 147/98 96 07/08/16 08:00 97.7 94 20 138/81 97 07/08/16 07:45 99 21 07/08/16 06:33 97.8 93 20 136/92 97 07/08/16 04:00 Room Air 07/08/16 00:00 Room Air 07/08/16 00:00 97.5 96 20 126/88 97 07/07/16 22:00 18 07/07/16 20:00 97.8 105 24 133/91 98 07/07/16 19:15 Room Air 07/07/16 16:00 97.6 100 12 137/91 97 -: 07/08/16 1120 07/08/16 1120 Microbiology 07/08/16 Aerobic Blood Culture, Received Pending 07/08/16 Anaerobic Blood Culture, Received Pending 07/08/16 Aerobic Blood Culture, Received Pending 07/08/16 Anaerobic Blood Culture, Received Pending Physical Exam General Appearance: Well Developed Neck Neck Exam: Neck Supple Pulmonary Resp Exam: Clear Bilaterally, Breath Sounds Equal Cardiology CV Exam: Regular, Normal Sinus Rhythm Gastrointestinal/Abdomen GI Exam: Soft, Non-Tender, Bowel Sounds Present Extremeties Extremities Exam: No Edema Neurologic Neuro Exam: Alert Assessment/Plan Problem List: (1) Renal failure Plan: In a patient with normal creatinine at baseline nonoliguric renal failure PREMA may be due to sepsis with diminished renal perfusion, he has had diarrhea therefore dehydration may be contributing there are no electrolyte issues currently, K was replaced renal US negative for obstructive etiology his renal function is improving, continue IVF if he allows, oral intake encouraged Cr continues to decline pre renal state АЛЕКСАНДР pending C3 low (2) Epidural abscess Plan: ID is following, ? mycobacteria (gram negative variable rods) he is currently on cefoxitin, Zyvox, Biaxin, and vancomycin lactic acid has improved monitor drug levels, follow cultures, monitor clinically (3) Thrombocytopenia Plan: improving, no acute bleeding (4) Intravenous drug abuse in remission Plan: encourage abstinence (5) Tobacco abuse Plan: cessation advised he was offered nicotine patch Problem Qualifiers (1) Renal failure: Qualified Code: N17.9 - Acute renal failure, unspecified acute renal failure type Debra Petersen MD July 08, 2016 15:10
[2016-07-09] VITALS (7 sets, daily range): BP systolic 138–158; BP diastolic 61–102; PULSE 92–105; RESP 20; TEMP 97.3–98.3; O2SAT 95–98
[2016-07-09] MEDS: ceFOXitin INJ 2 GM in SODIUM CHLORIDE 0.9% INJ 100 ML IV SCH ×2 (01:09→12:31)
[2016-07-09] MEDS: oxyCODONE/ACETAMINOPHEN 10 MG/325 MG TAB PO PRN ×6 (01:49→22:42)
[2016-07-09] MEDS: METHOCARBAMOL 500 MG TAB PO SCH ×3 (05:47→22:41)
[2016-07-09 07:17] LABS: HEMATOCRIT 27.2 % (39.0-51.0); MEAN CELL VOLUME 68.3 FL (80.0-100.0); MEAN CORPUSCULAR HEMOGLOBIN 22.1 PG (27.0-34.0); MEAN CORPUSCULAR HGB CONC 32.4 % (32.0-36.0); PLATELET COUNT 102 TH/MM3 (150-450); RED BLOOD COUNT 3.98 MIL/MM3 (4.50-5.90); RED CELL DISTRIBUTION WIDTH 22.1 % (11.6-17.2); REVIEW FLAG FINAL; WHITE BLOOD COUNT 3.8 TH/MM3 (4.0-11.0)
[2016-07-09 07:31] LABS: BICARBONATE 19.2 MEQ/L (21.0-32.0); POTASSIUM 5.2 MEQ/L (3.5-5.1)
[2016-07-09] MEDS: CLARITHROMYCIN 500 MG TAB PO SCH ×2 (08:30→21:28)
[2016-07-09] MEDS: SODIUM CHLORIDE 0.9% FLUSH 10 ML FLUSH IV FLUSH SCH ×2 (08:30→21:28)
[2016-07-09] MEDS: LINEZOLID 600 MG TAB PO SCH ×2 (08:30→21:28)
[2016-07-09] MEDS: DOCUSATE SODIUM 100 MG CAP PO SCH ×2 (08:30→21:00)
--- NOTE | 2016-07-09 12:26 | HHI.PR ---
Subjective Remarks No acute events overnight. Afebrile, vital signs stable. Patient continues to complain of severe pain in his back and legs. He did accept his antibiotic therapy this morning. He denies constipation or nausea/vomiting. No shortness of breath. States that he will not take his IV fluids as his IV "cabrera". Objective Vitals Vital Signs Date Time Temp Pulse Resp B/P Pulse Ox O2 Delivery O2 Flow Rate FiO2 07/09/16 08:01 Room Air 07/09/16 08:00 97.7 95 20 138/98 97 07/09/16 04:00 97.3 95 20 158/61 98 07/09/16 04:00 Room Air 07/09/16 00:00 98.0 95 20 140/87 95 07/09/16 00:00 Room Air 07/08/16 20:00 Room Air 07/08/16 20:00 97.8 98 20 139/91 96 07/08/16 16:00 97.7 100 20 144/93 97 I/O 07/08/16 07/08/16 07/08/16 07/09/16 07/09/16 07/09/16 07:00 15:00 23:00 07:00 15:00 23:00 Intake Total 720 ml 920 ml 280 ml 1200 ml Output Total 1325 ml 250 ml 1000 ml 1800 ml 375 ml Balance -605 ml 670 ml -720 ml -600 ml -375 ml Intake Oral 720 ml 920 ml 280 ml 1200 ml Output Urine Total 1325 ml 250 ml 1000 ml 1800 ml 375 ml # Bowel Movements 0 0 0 Result Diagram: 07/09/16 0607/09/16 06 Objective Remarks GENERAL: Patient in no apparent distress. He is laying in bed and appear to be comfortable. Very irritable. CARDIOVASCULAR: Normal rate and regular rhythm without murmurs, gallops, or rubs. RESPIRATORY: Good respiratory efforts. Breath sounds equal and clear to auscultation bilaterally. GASTROINTESTINAL: Abdomen soft, non-tender, non-distended. Normal active bowel sounds MUSCULOSKELETAL: Extremities without cyanosis, or edema. On his back in the thoracic region, He reports tenderness to palpation all over his back. NEURO: Alert & Oriented x4 to person, place, time, situation. Moves all ext x4 PSYCH: Irritable A/P Assessment and Plan 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 Thoracic spine MRI at the time showed extensive bilateral paraspinal abscess, discitis, osteomyelitis , right lung consolidation, epidural abscess. S/p T4-5 decompressive laminectomy , evacuation of epidural abscess and granulation tissue and evacuation thoracic paraspinous abscess on 05/25/16. 3/4 blood cultures grew MSSA. Repeat blood cultures 06/14/16 were negative. Expectorated sputum, fluid culture, and back wound all with MSSA. Infectious disease evaluated the patient and made recommendations of Rocephin 2 g IV with end date 07/19/16, along with Biaxin and Linezolid. - ID following. Patient is on Cefoxitin, Zyvox and Biaxin - Remove Caro catheter and tip sent for C/S, < 15 CFU gram - rods - Reconsult neurosurgery as needed. - physical therapy. - pain control with a bowel regimen. 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 - Repeat blood cx on 07/08 NG x 1 day - Patient complaining of persistent pain. 06/[address] scan of the thoracic spine showed significant improvement with decrease in soft tissue prominence; Paraspinal abnormality is less prominent. - Repeat CT on 07/08 did not reveal anything new on his spine. Patient encouraged to participate with PT and get out of bed. Yesterday, the patient refused his lab draws, IV fluids and his antibiotics. Today the patient did allow his labs to be drawn and is excepting his antibiotics. He continues to refuse IV fluids. The patient was counseled extensively as to the importance of taking all of his medications including his antibiotics and his IV fluids. - PREMA likely secondary to sepsis, nephrology consulted recommend continuing IV fluids and hydration as elevated creatinine is likely prerenal. Renal ultrasound within normal limits. Follow creatinine. Discharge planning: Patient to complete antibiotic regimen as an inpatient. Likely discharge to home. Case management to assist. Discharge planning: Dorota Hopson MD R3 July 09, 2016 12:26
[2016-07-09] MEDS: VANCOMYCIN 1,000 MG/NS 250 ML IV SCH ×2 (12:35)
--- NOTE | 2016-07-09 14:35 | HHI.NPPN ---
Subjective History of Present Illness 41 year old with epidural abscess on antibiotics c/o back pain Review of Systems Musculoskeletal MS: Pain/Stiffness Objective Data Data 07/08/16 07/09/16 19:00 07:00 Intake Total 920 ml 1480 ml Output Total 250 ml 2800 ml Balance 670 ml -1320 ml Intake Oral 920 ml 1480 ml Output Urine Total 250 ml 2800 ml # Bowel Movements 0 Vital Signs Date Time Temp Pulse Resp B/P Pulse Ox O2 Delivery O2 Flow Rate FiO2 07/09/16 12:05 98 07/09/16 12:00 97.6 93 20 143/100 98 07/09/16 10:45 18 07/09/16 08:01 Room Air 07/09/16 08:00 97.7 95 20 138/98 97 07/09/16 04:00 97.3 95 20 158/61 98 07/09/16 04:00 Room Air 07/09/16 00:00 98.0 95 20 140/87 95 07/09/16 00:00 Room Air 07/08/16 20:00 Room Air 07/08/16 20:00 97.8 98 20 139/91 96 07/08/16 16:00 97.7 100 20 144/93 97 -: 07/09/16 0600 07/09/16 0600 Physical Exam General Appearance: Well Developed Neck Neck Exam: Neck Supple Pulmonary Resp Exam: Clear Bilaterally, Breath Sounds Equal Cardiology CV Exam: Regular, Normal Sinus Rhythm Gastrointestinal/Abdomen GI Exam: Soft, Non-Tender, Bowel Sounds Present Extremeties Extremities Exam: No Edema Neurologic Neuro Exam: Alert Assessment/Plan Problem List: (1) Renal failure Plan: In a patient with normal creatinine at baseline nonoliguric renal failure PREMA may be due to sepsis with diminished renal perfusion, he has had diarrhea therefore dehydration may be contributing there are no electrolyte issues currently, K was replaced renal US negative for obstructive etiology his renal function is improving, continue IVF if he allows, oral intake encouraged Cr 2.18 АЛЕКСНАДР pending C3 low On Vancomycin follow level Dr. Aden to follow (2) Epidural abscess Plan: ID is following, ? mycobacteria (gram negative variable rods) he is currently on cefoxitin, Zyvox, Biaxin, and vancomycin lactic acid has improved monitor drug levels, follow cultures, monitor clinically (3) Thrombocytopenia Plan: improving, no acute bleeding (4) Intravenous drug abuse in remission Plan: encourage abstinence (5) Tobacco abuse Plan: cessation advised he was offered nicotine patch Problem Qualifiers (1) Renal failure: Qualified Code: N17.9 - Acute renal failure, unspecified acute renal failure type Debra Petersen MD July 09, 2016 14:35
[2016-07-10] VITALS (8 sets, daily range): BP systolic 132–154; BP diastolic 87–96; PULSE 88–105; RESP 18–20; TEMP 97.6–98.5; O2SAT 95–98
[2016-07-10] MEDS: ceFOXitin INJ 2 GM in SODIUM CHLORIDE 0.9% INJ 100 ML IV SCH ×2 (01:19→13:30)
[2016-07-10] MEDS: oxyCODONE/ACETAMINOPHEN 10 MG/325 MG TAB PO PRN ×6 (02:38→22:27)
[2016-07-10] MEDS: METHOCARBAMOL 500 MG TAB PO SCH ×3 (06:13→21:14)
[2016-07-10 08:53] LABS: AUTOMATED NEUTROPHIL # 2.3 TH/MM3 (1.8-7.7); BASOPHIL % 0.6 % (0.0-2.0); EOSINOPHIL # 0.2 TH/MM3 (0-0.4); EOSINOPHIL % 4.2 % (0.0-4.0); HEMATOCRIT 27.1 % (39.0-51.0); HEMO FLAGS DIFF FINAL; LYMPH % 36.6 % (9.0-44.0); LYMPHOCYTE # 1.6 TH/MM3 (1.0-4.8); MEAN CELL VOLUME 67.3 FL (80.0-100.0); MEAN CORPUSCULAR HEMOGLOBIN 22.2 PG (27.0-34.0); MONO % 7.2 % (0.0-8.0); NEUT % 51.4 % (16.0-70.0); PLATELET COUNT 124 TH/MM3 (150-450); RED BLOOD COUNT 4.02 MIL/MM3 (4.50-5.90); RED CELL DISTRIBUTION WIDTH 21.1 % (11.6-17.2); WHITE BLOOD COUNT 4.4 TH/MM3 (4.0-11.0)
[2016-07-10] MEDS: DOCUSATE SODIUM 100 MG CAP PO SCH ×2 (09:00→21:00)
[2016-07-10 09:06] LABS: BICARBONATE 23.7 MEQ/L (21.0-32.0); POTASSIUM 5.2 MEQ/L (3.5-5.1)
[2016-07-10] MEDS: CLARITHROMYCIN 500 MG TAB PO SCH ×2 (09:55→21:14)
[2016-07-10] MEDS: LINEZOLID 600 MG TAB PO SCH ×2 (09:55→21:14)
[2016-07-10] MEDS: SODIUM CHLORIDE 0.9% FLUSH 10 ML FLUSH IV FLUSH SCH ×2 (09:55→21:15)
--- NOTE | 2016-07-10 09:58 | HHI.NPPN ---
Subjective History of Present Illness 41 year old with epidural abscess on antibiotics c/o back pain Interval History patient reports that he is doing well. Has no new complaints. Review of Systems Musculoskeletal MS: Pain/Stiffness Objective Data Data 07/09/16 07/10/16 19:00 07:00 Intake Total 480 ml 2187 ml Output Total 1025 ml 1750 ml Balance -545 ml 437 ml Intake Oral 480 ml 1346 ml IV Total 841 ml Output Urine Total 1025 ml 1750 ml # Voids 2 5 # Bowel Movements 0 Vital Signs Date Time Temp Pulse Resp B/P Pulse Ox O2 Delivery O2 Flow Rate FiO2 07/10/16 08:20 98 21 07/10/16 08:00 97.6 96 20 144/93 98 07/10/16 03:30 97.7 88 18 147/96 98 07/10/16 00:24 97.7 90 18 133/96 98 07/10/16 00:00 Room Air 07/09/16 20:00 97.8 105 20 146/99 97 07/09/16 20:00 Room Air 07/09/16 16:00 98.3 92 20 145/102 97 07/09/16 15:15 18 07/09/16 12:05 98 07/09/16 12:00 97.6 93 20 143/100 98 -: 07/10/16 0824 07/10/16 0824 Physical Exam General Appearance: Well Developed Neck Neck Exam: Neck Supple Pulmonary Resp Exam: Clear Bilaterally, Breath Sounds Equal Cardiology CV Exam: Regular, Normal Sinus Rhythm Gastrointestinal/Abdomen GI Exam: Soft, Non-Tender, Bowel Sounds Present Extremeties Extremities Exam: No Edema Neurologic Neuro Exam: Alert Assessment/Plan Problem List: (1) Renal failure Plan: In a patient with normal creatinine at baseline nonoliguric renal failure PREMA could have been due to pre-renal azotemia, but may have progressed to ATN. Renal function is improving. Post infectious GN is a possibility: C3 is low. C4 is normal, suggesting activation of alternate complement pathway. renal US negative for obstructive etiology IVF can be stopped. Encourage oral intake. Vancomycin levels not ordered, none available. I have ordered a Vancomycin trough level. Avoid levels above 20 (2) Epidural abscess Plan: ID is following, ? mycobacteria (gram negative variable rods) he is currently on cefoxitin, Zyvox, Biaxin, and vancomycin lactic acid has improved monitor drug levels, follow cultures, monitor clinically (3) Thrombocytopenia Plan: improving, no acute bleeding (4) Intravenous drug abuse in remission Plan: encourage abstinence (5) Tobacco abuse Plan: cessation advised he was offered nicotine patch Problem Qualifiers (1) Renal failure: Qualified Code: N17.9 - Acute renal failure, unspecified acute renal failure type Freeman Aden MD July 10, 2016 09:58
[2016-07-10] MEDS: VANCOMYCIN 1,000 MG/NS 250 ML IV SCH ×2 (12:24)
--- NOTE | 2016-07-10 13:57 | HHI.PR ---
Subjective Remarks Follow-up for epidural abscess and back pain. Pain reported to be an 8, oral medications reported to be insufficient as "it's an 8 and will go to a 6 or 7 for an hour". Pt reported having history of hepatitis C. He stated he was unsure if it was "from sharing needles" or getting a tattoo (from a non-licensed facility/person) . Stated he has had hepatis C for "about 5 years". Pt reported smoking 1/2 pack of cigarettes on a daily basis. He endorsed having asthma (using inhaler) but currently denied cough, shortness of cough, wheeze, fever, nausea, vomiting, diarrhea or constipation. No other issues noted or reported. Objective Vitals Vital Signs Date Time Temp Pulse Resp B/P Pulse Ox O2 Delivery O2 Flow Rate FiO2 07/10/16 12:02 98.2 105 20 154/87 95 07/10/16 09:00 Room Air 07/10/16 08:20 98 21 07/10/16 08:00 97.6 96 20 144/93 98 07/10/16 03:30 97.7 88 18 147/96 98 07/10/16 00:24 97.7 90 18 133/96 98 07/10/16 00:00 Room Air 07/09/16 20:00 97.8 105 20 146/99 97 07/09/16 20:00 Room Air 07/09/16 16:00 98.3 92 20 145/102 97 07/09/16 15:15 18 I/O 07/09/16 07/09/16 07/09/16 07/10/16 07/10/16 07/10/16 07:00 15:00 23:00 07:00 15:00 23:00 Intake Total 1200 ml 480 ml 1879 ml 308 ml Output Total 1800 ml 1025 ml 1050 ml 700 ml Balance -600 ml -545 ml 829 ml -392 ml Intake Oral 1200 ml 480 ml 1146 ml 200 ml IV Total 733 ml 108 ml Output Urine Total 1800 ml 1025 ml 1050 ml 700 ml # Voids 2 5 # Bowel Movements 0 0 Result Diagram: 07/10/16 0824 07/10/16 0824 Imaging Last Impressions Thoracic Spine CT 07/07/16 0000 Signed Impressions: Service Date/Time: Thursday, July 07, 2016 18:47 - CONCLUSION: 1. The only interval change has been the development of small bilateral pleural effusions and worsening consolidation within the right lower lobe. 2. Chronic changes involving the thoracic spine including paraspinal soft tissue swelling and chronic bony destructive changes as detailed in multiple prior studies consistent with osteomyelitis are stable. Gopal Cates Jr., MD Renal Ultrasound 07/04/16 0000 Signed Impressions: Service Date/Time: Monday, July 04, 2016 11:29 - CONCLUSION: 1. Echogenic kidneys which can be seen with medical renal disease. 2. Echogenic liver and splenomegaly. Roni Dominique MD Central Venous Line 07/04/16 0000 Signed Impressions: Service Date/Time: Monday, July 04, 2016 00:00 - CONCLUSION: Uncomplicated Permcath removal. Roshan Jain MD Chest X-Ray 07/03/16 2251 Signed Impressions: Service Date/Time: Sunday, July 03, 2016 23:01 - CONCLUSION: Mild right lung base atelectasis and/or infiltrate is seen. Soco Oliveira MD Objective Remarks GENERAL: Pt encountered laying a bed, awake and alert, pleasant and cooperative. SKIN: Warm and dry. HEAD: Normocephalic. EYES: No scleral icterus. No injection or drainage. NECK: Supple, trachea midline. No lymphadenopathy. CARDIOVASCULAR: Regular rate and rhythm without murmurs, gallops, or rubs. RESPIRATORY: Breath sounds equal bilaterally with mild expiratory wheeze noted left lung. No accessory muscle use. GASTROINTESTINAL: Abdomen soft, non-tender, nondistended. MUSCULOSKELETAL: No cyanosis, or edema. PSYCHIATRIC: A&Ox3, no overt signs of anxiety and/or depression. Medications and IVs Current Medications Medications (Trade) Dose Ordered Sig/Rony Route Start Time Stop Time Status Last Admin (NS Flush) 2 ml UNSCH PRN IV FLUSH 07/04/16 02:15 (NS Flush) 2 ml BID IV FLUSH 07/04/16 09:00 07/10/16 09:55 (Tylenol) 650 mg Q4H PRN PO 07/04/16 02:15 (Zofran Inj) 4 mg Q6H PRN IVP 07/04/16 02:15 (Colace) 100 mg Q12HR PO 07/04/16 09:00 07/09/16 08:30 (Senokot) 17.2 mg Q12H PRN PO 07/04/16 02:15 (Tylenol) 650 mg Q6H PRN PO 07/04/16 02:15 07/04/16 13:37 (Narcan Inj) 0.4 mg UNSCH PRN IV 07/04/16 02:15 (Biaxin) 500 mg Q12HR PO 07/04/16 21:00 07/10/16 09:55 Linezolid 600 mg 600 mg Q12HR PO 07/04/16 11:00 07/10/16 09:55 (Mefoxin Inj/NS Inj) 100 ml @ 200 mls/hr Q12H IV 07/04/16 13:00 07/10/16 13:30 (Percocet 10-325 Mg) 1 tab Q4H PRN PO 07/04/16 11:30 07/10/16 10:00 (Robaxin) 500 mg Q8HR PO 07/06/16 14:00 07/10/16 13:30 Albuterol Sulfate 2 puff 2 puff Q4H PRN INH 07/06/16 17:49 07/08/16 14:22 Pharmacy Profile Note 0 ml @ 0 mls/hr UNSCH OTHER 07/07/16 15:15 (Vancomycin Inj/ NS 250 ml Inj) 250 ml @ 250 mls/hr Q24H IV 07/09/16 12:00 07/10/16 12:24 Urinary Catheter: No A/P Assessment and Plan 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 Thoracic spine MRI at the time showed extensive bilateral paraspinal abscess, discitis, osteomyelitis , right lung consolidation, epidural abscess. S/p T4-5 decompressive laminectomy , evacuation of epidural abscess and granulation tissue and evacuation thoracic paraspinous abscess on 05/25/16. 3/4 blood cultures grew MSSA. Repeat blood cultures 06/14/16 were negative. Expectorated sputum, fluid culture, and back wound all with MSSA. Infectious disease evaluated the patient and made recommendations of Rocephin 2 g IV with end date 07/19/16, along with Biaxin and Linezolid. - ID following. Patient is on Cefoxitin, Zyvox and Biaxin - Remove Caro catheter and tip sent for C/S - Reconsult neurosurgery as needed. - physical therapy. - pain control with a bowel regimen. 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 Case discussed with pt, RN, and Dr. Almonte Discharge Planning Per CM note, pt is to return home at d/c. Additional services to be determined. Cheng Alamo Jr. BRITTANY July 10, 2016 13:57
[2016-07-11] VITALS: BP 149/92; PULSE 106; RESP 20; TEMP 98; O2SAT 96
[2016-07-11] MEDS: ceFOXitin INJ 2 GM in SODIUM CHLORIDE 0.9% INJ 100 ML IV SCH ×2 (01:19→15:00)
[2016-07-11] MEDS: oxyCODONE/ACETAMINOPHEN 10 MG/325 MG TAB PO PRN ×6 (02:28→22:20)
[2016-07-11 04:00] VITALS: BP 157/92; PULSE 105; RESP 18; TEMP 98; O2SAT 98
[2016-07-11] MEDS: METHOCARBAMOL 500 MG TAB PO SCH ×3 (06:28→20:55)
[2016-07-11 07:35] LABS: AUTOMATED NEUTROPHIL # 2.6 TH/MM3 (1.8-7.7); BASOPHIL % 0.5 % (0.0-2.0); EOSINOPHIL # 0.3 TH/MM3 (0-0.4); EOSINOPHIL % 5.3 % (0.0-4.0); HEMATOCRIT 28.4 % (39.0-51.0); HEMO FLAGS DIFF FINAL; LYMPH % 37.6 % (9.0-44.0); LYMPHOCYTE # 1.9 TH/MM3 (1.0-4.8); MEAN CELL VOLUME 68.1 FL (80.0-100.0); MEAN CORPUSCULAR HEMOGLOBIN 22.5 PG (27.0-34.0); MEAN CORPUSCULAR HGB CONC 33.1 % (32.0-36.0); MONO % 6.5 % (0.0-8.0); NEUT % 50.1 % (16.0-70.0); PLATELET COUNT 126 TH/MM3 (150-450); RED BLOOD COUNT 4.17 MIL/MM3 (4.50-5.90); RED CELL DISTRIBUTION WIDTH 21.3 % (11.6-17.2); WHITE BLOOD COUNT 5.2 TH/MM3 (4.0-11.0)
[2016-07-11 08:00] VITALS: BP 162/93; PULSE 108; RESP 18; TEMP 98
[2016-07-11 08:01] LABS: BICARBONATE 24.2 MEQ/L (21.0-32.0); POTASSIUM 5.1 MEQ/L (3.5-5.1)
--- NOTE | 2016-07-11 08:22 | HHI.NPPN ---
Subjective History of Present Illness 41 year old with epidural abscess on antibiotics c/o back pain Interval History Renal function continues to improve. Non oliguric. Review of Systems Musculoskeletal MS: Pain/Stiffness Objective Data Data 07/10/16 07/11/16 19:00 07:00 Intake Total 358 ml 585 ml Output Total 800 ml 1925 ml Balance -442 ml -1340 ml Intake Oral 480 ml IV Total 358 ml 105 ml Output Urine Total 800 ml 1925 ml # Bowel Movements 1 0 Vital Signs Date Time Temp Pulse Resp B/P Pulse Ox O2 Delivery O2 Flow Rate FiO2 07/11/16 08:00 98.0 108 18 162/93 07/11/16 04:00 Room Air 07/11/16 04:00 98.0 105 18 157/92 98 07/11/16 00:00 Room Air 07/11/16 00:00 98.0 106 20 149/92 96 07/10/16 20:43 97 21 07/10/16 20:00 Room Air 07/10/16 20:00 98.5 99 18 132/90 96 07/10/16 16:00 Room Air 07/10/16 16:00 98.2 93 20 138/94 97 07/10/16 12:02 98.2 105 20 154/87 95 07/10/16 12:00 Room Air 07/10/16 09:00 Room Air -: 07/11/16 0636 07/11/16 0636 Physical Exam General Appearance: Well Developed Neck Neck Exam: Neck Supple Pulmonary Resp Exam: Clear Bilaterally, Breath Sounds Equal Cardiology CV Exam: Regular, Normal Sinus Rhythm Gastrointestinal/Abdomen GI Exam: Soft, Non-Tender, Bowel Sounds Present Extremeties Extremities Exam: No Edema Neurologic Neuro Exam: Alert Assessment/Plan Problem List: (1) Renal failure Plan: PREMA could have been due to pre-renal azotemia, but may have progressed to ATN. Renal function is improving. Post infectious GN is a possibility: C3 is low. C4 is normal, suggesting activation of alternate complement pathway. renal US negative for obstructive etiology IVF can be stopped. Encourage oral intake. Carefully monitor Vancomycin levels. (2) Epidural abscess Plan: ID is following, ? mycobacteria (gram negative variable rods) he is currently on cefoxitin, Zyvox, Biaxin, and vancomycin lactic acid has improved monitor drug levels, follow cultures, monitor clinically (3) Thrombocytopenia Plan: improving, no acute bleeding (4) Intravenous drug abuse in remission Plan: encourage abstinence (5) Tobacco abuse Plan: cessation advised he was offered nicotine patch Problem Qualifiers (1) Renal failure: Qualified Code: N17.9 - Acute renal failure, unspecified acute renal failure type Freeman Aden MD July 11, 2016 08:22
[2016-07-11] MEDS: SODIUM CHLORIDE 0.9% FLUSH 10 ML FLUSH IV FLUSH SCH ×2 (08:24→20:55)
[2016-07-11] MEDS: DOCUSATE SODIUM 100 MG CAP PO SCH ×3 (09:00→20:55)
[2016-07-11] MEDS: LINEZOLID 600 MG TAB PO SCH ×3 (09:25→20:56)
[2016-07-11] MEDS: CLARITHROMYCIN 500 MG TAB PO SCH ×2 (09:25→20:55)
--- NOTE | 2016-07-11 11:25 | HHI.PR ---
Subjective Remarks Primary complaint today is back pain. He is requesting adjustments in his pain treatment so he can have less pain and hopefully ambulate more. He has a regular high levels on short acting narcotics. We discussed long-acting narcotics as a supplement. Objective Vital Signs Date Time Temp Pulse Resp B/P Pulse Ox O2 Delivery O2 Flow Rate FiO2 07/11/16 08:00 98.0 108 18 162/93 07/11/16 04:00 Room Air 07/11/16 04:00 98.0 105 18 157/92 98 07/11/16 00:00 Room Air 07/11/16 00:00 98.0 106 20 149/92 96 07/10/16 20:43 97 21 07/10/16 20:00 Room Air 07/10/16 20:00 98.5 99 18 132/90 96 07/10/16 16:00 Room Air 07/10/16 16:00 98.2 93 20 138/94 97 07/10/16 12:02 98.2 105 20 154/87 95 07/10/16 12:00 Room Air I/O 07/10/16 07/10/16 07/10/16 07/11/16 07/11/16 07/11/16 07:00 15:00 23:00 07:00 15:00 23:00 Intake Total 308 ml 358 ml 0 ml 585 ml Output Total 700 ml 1300 ml 1425 ml Balance -392 ml 358 ml -1300 ml -840 ml Intake Oral 200 ml 0 ml 480 ml IV Total 108 ml 358 ml 105 ml Output Urine Total 700 ml 1300 ml 1425 ml # Bowel Movements 1 0 Result Diagram: 07/11/16 0636 07/11/16 0636 Imaging Last Impressions Thoracic Spine CT 07/07/16 0000 Signed Impressions: Service Date/Time: Thursday, July 07, 2016 18:47 - CONCLUSION: 1. The only interval change has been the development of small bilateral pleural effusions and worsening consolidation within the right lower lobe. 2. Chronic changes involving the thoracic spine including paraspinal soft tissue swelling and chronic bony destructive changes as detailed in multiple prior studies consistent with osteomyelitis are stable. Gopal Cates Jr., MD Renal Ultrasound 07/04/16 0000 Signed Impressions: Service Date/Time: Monday, July 04, 2016 11:29 - CONCLUSION: 1. Echogenic kidneys which can be seen with medical renal disease. 2. Echogenic liver and splenomegaly. Roni Dominique MD Central Venous Line 07/04/16 0000 Signed Impressions: Service Date/Time: Monday, July 04, 2016 00:00 - CONCLUSION: Uncomplicated Permcath removal. Roshan Jain MD Chest X-Ray 07/03/16 2251 Signed Impressions: Service Date/Time: Sunday, July 03, 2016 23:01 - CONCLUSION: Mild right lung base atelectasis and/or infiltrate is seen. Soco Oliveira MD Objective Remarks GENERAL: NAD, A&Ox3 SKIN: Warm and dry. HEAD: Normocephalic. EYES: No scleral icterus. No injection or drainage. NECK: Supple, trachea midline. No JVD or lymphadenopathy. CARDIOVASCULAR: Regular rate and rhythm without murmurs, gallops, or rubs. RESPIRATORY: Breath sounds equal bilaterally. No accessory muscle use. GASTROINTESTINAL: Abdomen soft, non-tender, nondistended. MUSCULOSKELETAL: No cyanosis, or edema. Medications and IVs Administered Medications Medications (Trade) Dose Ordered Sig/Rony Route PRN Reason Start Time Stop Time Status Last Admin Dose Admin Sodium Chloride (NS Flush) 2 ml BID IV FLUSH 07/04/16 09:00 07/11/16 08:24 Docusate Sodium (Colace) 100 mg Q12HR PO 07/04/16 09:00 07/09/16 08:30 Acetaminophen (Tylenol) 650 mg Q6H PRN PO PAIN SCALE 1 TO 2 07/04/16 02:15 07/04/16 13:37 Clarithromycin (Biaxin) 500 mg Q12HR PO 07/04/16 21:00 07/11/16 09:25 Linezolid 600 mg 600 mg Q12HR PO 07/04/16 11:00 07/11/16 09:25 Cefoxitin Sodium/ Sodium Chloride (Mefoxin Inj/NS Inj) 100 ml @ 200 mls/hr Q12H IV 07/04/16 13:00 07/11/16 01:19 Oxycodone/ Acetaminophen (Percocet 10-325 Mg) 1 tab Q4H PRN PO PAIN GREATER THAN 5 07/04/16 11:30 07/11/16 10:21 Methocarbamol (Robaxin) 500 mg Q8HR PO 07/06/16 14:00 07/11/16 06:28 Albuterol Sulfate 2 puff 2 puff Q4H PRN INH DYSPNEA 07/06/16 17:49 07/08/16 14:22 Vancomycin HCl/ Sodium Chloride (Vancomycin Inj/ NS 250 ml Inj) 250 ml @ 250 mls/hr Q24H IV 07/09/16 12:00 07/10/16 12:24 A/P Problem List: (1) Epidural abscess ICD Code: G06.2 (2) Intravenous drug abuse in remission ICD Code: F19.10 (3) Tobacco abuse ICD Code: Z72.0 Assessment and Plan Assessment and Plan 41-year-old male admitted with MSSA spinal abscess and also mellitus. Vertebral ostia mellitus Spinal abscess Rocephin 2 g IV daily Continue Biaxin Continue Lenezolid Stop date is 07/19/16 Continue Percocet for pain control OxyContin started at 40 mg by mouth every 12 hours Monitor for drowsiness Monitor for increased ambulation Follow cultures Lauri Givens MD July 11, 2016 11:25
[2016-07-11] MEDS ORDERED: oxyCODONE HCL 40 MG CONTROLLED RELEASE TAB PO ONE (11:30)
[2016-07-11] MEDS: VANCOMYCIN 1,000 MG/NS 250 ML IV SCH ×2 (11:44)
[2016-07-11] MEDS ORDERED: PHARMACY ORDERED LAB ONE (11:45)
[2016-07-11] MEDS: LACTOBACILLUS ACIDOPHILUS TAB PO SCH ×2 (14:48→18:19)
[2016-07-11 16:00] VITALS: BP 137/96; PULSE 105; RESP 18; TEMP 98.2; O2SAT 98
[2016-07-11 20:00] VITALS: BP 137/83; PULSE 98; RESP 20; TEMP 98; O2SAT 97
[2016-07-11] MEDS: oxyCODONE HCL 40 MG CONTROLLED RELEASE TAB PO SCH (20:54)
[2016-07-12 02:00] VITALS: BP 126/92; PULSE 106; RESP 18; TEMP 97.7; O2SAT 97
[2016-07-12] MEDS: ceFOXitin INJ 2 GM in SODIUM CHLORIDE 0.9% INJ 100 ML IV SCH ×2 (02:07→14:35)
[2016-07-12] MEDS: oxyCODONE/ACETAMINOPHEN 10 MG/325 MG TAB PO PRN ×6 (02:07→21:58)
[2016-07-12 04:00] VITALS: BP 138/91; PULSE 88; RESP 18; TEMP 97.6; O2SAT 97
[2016-07-12] MEDS: METHOCARBAMOL 500 MG TAB PO SCH ×3 (06:11→20:52)
[2016-07-12 07:32] LABS: HEMATOCRIT 31.6 % (39.0-51.0); MEAN CELL VOLUME 68.9 FL (80.0-100.0); MEAN CORPUSCULAR HEMOGLOBIN 21.6 PG (27.0-34.0); MEAN CORPUSCULAR HGB CONC 31.4 % (32.0-36.0); PLATELET COUNT 109 TH/MM3 (150-450); RED BLOOD COUNT 4.59 MIL/MM3 (4.50-5.90); RED CELL DISTRIBUTION WIDTH 21.4 % (11.6-17.2); REVIEW FLAG FINAL; WHITE BLOOD COUNT 5.4 TH/MM3 (4.0-11.0)
[2016-07-12 07:56] LABS: POTASSIUM 5.4 MEQ/L (3.5-5.1)
[2016-07-12 08:00] VITALS: BP 148/92; PULSE 93; RESP 20; TEMP 97.8; O2SAT 100
[2016-07-12] MEDS ORDERED: cloNIDine HCL 0.1 MG TAB PO ONE (08:45)
[2016-07-12] MEDS: DOCUSATE SODIUM 100 MG CAP PO SCH ×2 (08:55→20:50)
[2016-07-12] MEDS: oxyCODONE HCL 40 MG CONTROLLED RELEASE TAB PO SCH ×2 (08:55→20:51)
[2016-07-12] MEDS: SODIUM CHLORIDE 0.9% FLUSH 10 ML FLUSH IV FLUSH SCH ×2 (08:55→20:52)
[2016-07-12] MEDS: LACTOBACILLUS ACIDOPHILUS TAB PO SCH ×3 (08:55→17:16)
[2016-07-12] MEDS: CLARITHROMYCIN 500 MG TAB PO SCH ×2 (08:55→20:50)
[2016-07-12] MEDS: LINEZOLID 600 MG TAB PO SCH ×2 (08:55→20:51)
--- NOTE | 2016-07-12 10:27 | HHI.NPPN ---
Subjective Renal Failure: Acute Interval History Lying in bed, awake/alert. Renal function is better. No complaints today. Blood pressure elevated overnight. (Annelise Miranda) Review of Systems Musculoskeletal MS: Pain/Stiffness MS Remarks back pain (Annelise Miranda) Objective Data Data 07/11/16 07/12/16 19:00 07:00 Intake Total 785 ml Output Total 500 ml 1525 ml Balance -500 ml -740 ml Intake Oral 480 ml IV Total 305 ml Output Urine Total 500 ml 1525 ml # Bowel Movements 1 0 Vital Signs Date Time Temp Pulse Resp B/P Pulse Ox O2 Delivery O2 Flow Rate FiO2 07/12/16 08:00 97.8 93 20 148/92 100 07/12/16 04:00 97.6 88 18 138/91 97 07/12/16 02:00 97.7 106 18 126/92 97 07/11/16 20:10 Room Air 07/11/16 20:00 98.0 98 20 137/83 97 07/11/16 16:00 98.2 105 18 137/96 98 07/11/16 16:00 Room Air 07/11/16 12:00 Room Air (Annelise Miranda) -: 07/12/16 0630 07/12/16 0630 Imaging Last Impressions Thoracic Spine CT 07/07/16 0000 Signed Impressions: Service Date/Time: Thursday, July 07, 2016 18:47 - CONCLUSION: 1. The only interval change has been the development of small bilateral pleural effusions and worsening consolidation within the right lower lobe. 2. Chronic changes involving the thoracic spine including paraspinal soft tissue swelling and chronic bony destructive changes as detailed in multiple prior studies consistent with osteomyelitis are stable. Gopal Cates Jr., MD Renal Ultrasound 07/04/16 0000 Signed Impressions: Service Date/Time: Monday, July 04, 2016 11:29 - CONCLUSION: 1. Echogenic kidneys which can be seen with medical renal disease. 2. Echogenic liver and splenomegaly. Roni Dominique MD Central Venous Line 07/04/16 0000 Signed Impressions: Service Date/Time: Monday, July 04, 2016 00:00 - CONCLUSION: Uncomplicated Permcath removal. Roshan Jain MD Chest X-Ray 07/03/16 9825 Signed Impressions: Service Date/Time: Sunday, July 03, 2016 23:01 - CONCLUSION: Mild right lung base atelectasis and/or infiltrate is seen. Soco Oliveira MD (Annelise Miranda) Physical Exam General Appearance: Well Developed, Well Nourished, No Acute Distress, Comfortable ( Annelise Miranda B. BULK RECEIVER) Eyes Eye Exam: Pupils Equal (Annelise Miranda BULK RECEIVER) Throat Throat Exam: Oral Mucosa [place] & Moist (Annelise Miranda B. BULK RECEIVER) Neck Neck Exam: Neck Supple (Annelise Miranda B. BULK RECEIVER) Pulmonary Resp Exam: Clear Bilaterally, Breath Sounds Equal (Annelise Miranda B. BULK RECEIVER) Cardiology CV Exam: Regular, Normal Sinus Rhythm, Good Perfusion (Annelise Miranda B. BULK RECEIVER) Gastrointestinal/Abdomen GI Exam: Soft, Non-Tender, Bowel Sounds Present (Annelise MirandaP) Musculoskeletal MS Exam: Joints Intact, Normal Gait, Normal Tone, Good Strength (Annelise Miranda. BULK RECEIVER) Integumentary Skin Exam: Warm, Dry Skin Remarks upper T spine dressing in place (Annelise MirandaP) Extremeties Extremities Exam: No Edema (Annelise Miranda) Neurologic Neuro Exam: Alert, Awake, Oriented, Speech Clear, Moving All Extremities ( Annelise Miranda. BULK RECEIVER) Psychiatric Psych Exam: Appropriate Responses (Annelise Miranda) Assessment/Plan Discussed Condition With: Patient Assessment Summary: PREMA/Acute Renal Failure, Hypertension Problem List: (1) Renal failure Plan: non oliguric renal failure PREMA possibly due to sepsis, prerenal azotemia, but may have progressed to ATN. Post infectious GN is a possibility: C3 is low. C4 is normal, suggesting activation of alternate complement pathway. Renal function improving daily. excellent urine output no indication of obstruction on renal US K 5.4, monitor for now IVF stopped. Encouraged oral intake. Carefully monitor Vancomycin levels. (2) Epidural abscess Plan: ID is following, blood culture report: mycobacterium abscesses, also with Sphingomonas tellez catheter (removed) tip with GN rods, culture report reviewed he is currently on Cefoxitin , Zyvox, Biaxin, and vancomycin; Rocephin was stopped lactic acid has improved monitor drug levels, follow cultures, monitor clinically his pain regimen has been adjusted (3) HTN (hypertension) Plan: BP has been elevated give a does of clonidine and monitor (4) Thrombocytopenia Plan: improving, no acute bleeding (5) Intravenous drug abuse in remission Plan: encourage abstinence (6) Tobacco abuse Plan: cessation advised he was offered nicotine patch (Annelise Miranda) Plan patient was seen and examined. Renal function is stable. Will be available as needed over the weekend. Avoid nephrotoxic agents. (Freeman Aden MD) Problem Qualifiers (1) Renal failure: Qualified Code: N17.9 - Acute renal failure, unspecified acute renal failure type Annelise Miranda July 12, 2016 10:27 Freeman Aden MD Jul 14, 2016 13:49
[2016-07-12] MEDS ORDERED: PHARMACY ORDERED LAB ONE (11:45)
[2016-07-12 12:00] VITALS: BP 106/79; PULSE 101; RESP 20; TEMP 98.1; O2SAT 97
--- NOTE | 2016-07-12 12:20 | HHI.IDPN ---
Subjective Subjective Remarks 41 year old male with MSSA recurrent epidural abscess/osteo, S/P surgery. has developed M abscessus sepsis Signed out AMA, and came back for back pain Notes reviewed Temps ok Main issue still is his back pain Thoracic CT no new finding Cath tip with <15 cfu GNR 1 BC with M abscessus 1 BC with Sphingomonas BC 06/14 and 06/19 with M abscessus Platelet count better Creatinine better Renal US no hydro Low C3 Antibiotics Zyvox Biaxin Cefoxitin Vancomycin Lines Central line Past Medical History Reviewed Allergies: Coded Allergies: Aspirin (Verified Allergy, Severe, 07/03/16) PATIENT STATES HE HAD A HOLE IN HIS HEART WHEN HE WAS BORN AND HE WAS TOLD NOT TO TAKE ASPIRIN. LONG-TERM MAR STATES NO KNOWN ALLERGIES PATIENT DENIES ALLERGY TO ASPIRIN. 04/01/13 Objective . Vital Signs Date Time Temp Pulse Resp B/P Pulse Ox O2 Delivery O2 Flow Rate FiO2 07/12/16 12:00 98.1 101 20 106/79 97 07/12/16 08:00 97.8 93 20 148/92 100 07/12/16 04:00 97.6 88 18 138/91 97 07/12/16 02:00 97.7 106 18 126/92 97 07/11/16 20:10 Room Air 07/11/16 20:00 98.0 98 20 137/83 97 07/11/16 16:00 98.2 105 18 137/96 98 07/11/16 16:00 Room Air 07/11/16 07/11/16 07/12/16 15:00 23:00 07:00 Intake Total 440 ml 345 ml Output Total 500 ml 500 ml 1025 ml Balance -500 ml -60 ml -680 ml Intake Oral 240 ml 240 ml IV Total 200 ml 105 ml Output Urine Total 500 ml 500 ml 1025 ml # Bowel Movements 1 0 0 . Laboratory Tests Test 07/11/16 07/12/16 06:36 06:30 White Blood Count 5.2 TH/MM3 5.4 TH/MM3 Red Blood Count 4.17 MIL/MM3 4.59 MIL/MM3 Hemoglobin 9.4 GM/DL 9.9 GM/DL Hematocrit 28.4 % 31.6 % Mean Corpuscular Volume 68.1 FL 68.9 FL Mean Corpuscular Hemoglobin 22.5 PG 21.6 PG Mean Corpuscular Hemoglobin 33.1 % 31.4 % Concent Red Cell Distribution Width 21.3 % 21.4 % Platelet Count 126 TH/MM3 109 TH/MM3 Mean Platelet Volume 8.3 FL 8.2 FL Neutrophils (%) (Auto) 50.1 % Lymphocytes (%) (Auto) 37.6 % Monocytes (%) (Auto) 6.5 % Eosinophils (%) (Auto) 5.3 % Basophils (%) (Auto) 0.5 % Neutrophils # (Auto) 2.6 TH/MM3 Lymphocytes # (Auto) 1.9 TH/MM3 Monocytes # (Auto) 0.3 TH/MM3 Eosinophils # (Auto) 0.3 TH/MM3 Basophils # (Auto) 0.0 TH/MM3 CBC Comment DIFF FINAL Differential Comment Laboratory Tests Test 07/11/16 07/12/16 06:36 06:30 Sodium Level 137 MEQ/L 136 MEQ/L Potassium Level 5.1 MEQ/L 5.4 MEQ/L Chloride Level 104 MEQ/L 104 MEQ/L Carbon Dioxide Level 24.2 MEQ/L 24.0 MEQ/L Anion Gap 9 MEQ/L 8 MEQ/L Blood Urea Nitrogen 20 MG/DL 20 MG/DL Creatinine 1.71 MG/DL 1.61 MG/DL Estimat Glomerular Filtration 44 ML/MIN 47 ML/MIN Rate Random Glucose 104 MG/DL 80 MG/DL Calcium Level 8.2 MG/DL 8.4 MG/DL Phosphorus Level 4.1 MG/DL Albumin 2.1 GM/DL Imaging Last Impressions Renal Ultrasound 07/04/16 0000 Signed Impressions: Service Date/Time: Monday, July 04, 2016 11:29 - CONCLUSION: 1. Echogenic kidneys which can be seen with medical renal disease. 2. Echogenic liver and splenomegaly. Roni Dominique MD Central Venous Line 07/04/16 0000 Signed Impressions: Service Date/Time: Monday, July 04, 2016 00:00 - CONCLUSION: Uncomplicated Permcath removal. Roshan Jain MD Chest X-Ray 07/03/16 4666 Signed Impressions: Service Date/Time: Sunday, July 03, 2016 23:01 - CONCLUSION: Mild right lung base atelectasis and/or infiltrate is seen. Soco Oliveira MD Physical Exam GENERAL: awake and alert, not in respiratory distress. SKIN: Warm and dry. No generalized rash, no ecchymoses and no evidence of embolic lesions. HEAD: Atraumatic. Normocephalic. No temporal wasting, or tenderness. EYES: [place] conjunctiva. No petechia or hemorrhage. No scleral icterus. No injection or drainage. EARS, NOSE AND THROAT: Nose without bleeding or purulent nasal discharge. No sinus tenderness. Mucous membranes pink and moist. No oral lesions noted. No exudate. No oral thrush. NECK: Trachea midline. Supple and not tender, no meningeal signs CARDIOVASCULAR: Regular rate and rhythm. No murmurs, rubs or gallops heard RESPIRATORY: Clear to auscultation. Breath sounds equal bilaterally. No rales , wheezing or rhonchi ABDOMEN: Soft, non-tender, nondistended. Bowel sounds present and normoactive. No guarding. No rebound. No organomegaly. EXTREMITIES: No clubbing, cyanosis, or edema.No joint effusion, has good ROM. No calf tenderness. Well perfused and warm. NEUROLOGICAL: Awake and alert. Cranial nerves grossly intact. Motor grossly within normal limits. BACK: Incision is dry, no redness or drainage PSYCHIATRIC: Normal affect, calm and cooperative. 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
[2016-07-12] MEDS: VANCOMYCIN 1,000 MG/NS 250 ML IV SCH ×2 (12:23)
--- NOTE | 2016-07-12 14:28 | HHI.PR ---
Subjective Remarks Pain is improved with long-acting OxyContin. Patient feels he is slightly more ambulatory today. He is encouraged to continue ambulating as much as possible. Antibiotic therapies are ongoing. Objective Vital Signs Date Time Temp Pulse Resp B/P Pulse Ox O2 Delivery O2 Flow Rate FiO2 07/12/16 12:00 98.1 101 20 106/79 97 07/12/16 08:00 97.8 93 20 148/92 100 07/12/16 04:00 97.6 88 18 138/91 97 07/12/16 02:00 97.7 106 18 126/92 97 07/11/16 20:10 Room Air 07/11/16 20:00 98.0 98 20 137/83 97 07/11/16 16:00 98.2 105 18 137/96 98 07/11/16 16:00 Room Air I/O 07/11/16 07/11/16 07/11/16 07/12/16 07/12/16 07/12/16 07:00 15:00 23:00 07:00 15:00 23:00 Intake Total 585 ml 440 ml 345 ml Output Total 1425 ml 500 ml 500 ml 1025 ml Balance -840 ml -500 ml -60 ml -680 ml Intake Oral 480 ml 240 ml 240 ml IV Total 105 ml 200 ml 105 ml Output Urine Total 1425 ml 500 ml 500 ml 1025 ml # Bowel Movements 0 1 0 0 Result Diagram: 07/12/1662907/12/16629 Objective Remarks GENERAL: NAD, A&Ox3 SKIN: Warm and dry. HEAD: Normocephalic. EYES: No scleral icterus. No injection or drainage. NECK: Supple, trachea midline. No JVD or lymphadenopathy. CARDIOVASCULAR: Regular rate and rhythm without murmurs, gallops, or rubs. RESPIRATORY: Breath sounds equal bilaterally. No accessory muscle use. GASTROINTESTINAL: Abdomen soft, non-tender, nondistended. MUSCULOSKELETAL: No cyanosis, or edema. 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 Continue Percocet for pain control Continue OxyContin 40 mg by mouth every 12 hours Follow cultures Lauri Givens MD July 12, 2016 14:28
[2016-07-12] MEDS: LEVOFLOXACIN 750 MG TAB PO SCH (14:35)
[2016-07-12 16:00] VITALS: BP 106/77; PULSE 95; RESP 20; TEMP 98; O2SAT 98
[2016-07-12 19:47] VITALS: BP 130/83; PULSE 89; RESP 16; TEMP 98.1; O2SAT 97
[2016-07-12 23:52] LABS: MYELOPEROXIDASE LESS THAN 1.0 AI (<1.0); PROTEINASE-3 LESS THAN 1.0 AI (<1.0)
[2016-07-13] VITALS (7 sets, daily range): BP systolic 116–150; BP diastolic 80–99; PULSE 86–100; RESP 16–18; TEMP 97.7–98.3; O2SAT 92–100
[2016-07-13] MEDS: ceFOXitin INJ 2 GM in SODIUM CHLORIDE 0.9% INJ 100 ML IV SCH ×2 (02:08→13:44)
[2016-07-13] MEDS: oxyCODONE/ACETAMINOPHEN 10 MG/325 MG TAB PO PRN ×6 (02:08→22:06)
[2016-07-13] MEDS: METHOCARBAMOL 500 MG TAB PO SCH ×3 (05:57→20:46)
[2016-07-13] MEDS: LACTOBACILLUS ACIDOPHILUS TAB PO SCH ×3 (08:46→17:37)
[2016-07-13] MEDS: DOCUSATE SODIUM 100 MG CAP PO SCH ×2 (08:46→20:47)
[2016-07-13] MEDS: CLARITHROMYCIN 500 MG TAB PO SCH ×2 (08:47→20:44)
[2016-07-13] MEDS: LINEZOLID 600 MG TAB PO SCH ×2 (08:47→20:44)
[2016-07-13] MEDS: oxyCODONE HCL 40 MG CONTROLLED RELEASE TAB PO SCH ×2 (08:47→20:43)
[2016-07-13] MEDS: SODIUM CHLORIDE 0.9% FLUSH 10 ML FLUSH IV FLUSH SCH ×2 (08:47→20:47)
[2016-07-13] MEDS: VANCOMYCIN 1,000 MG/NS 250 ML IV SCH ×2 (11:28)
--- NOTE | 2016-07-13 12:03 | HHI.PR ---
Subjective Remarks Pain more stable with long acting oxycodone. No new complaints. More ambulatory. Objective Vital Signs Date Time Temp Pulse Resp B/P Pulse Ox O2 Delivery O2 Flow Rate FiO2 07/13/16 08:00 98.1 96 18 116/80 96 07/13/16 08:00 Room Air 07/13/16 05:50 98.0 97 16 120/87 96 07/13/16 04:10 Room Air 07/13/16 00:12 97.8 92 16 140/91 94 07/13/16 00:00 Room Air 07/12/16 20:15 Room Air 07/12/16 19:47 98.1 89 16 130/83 97 07/12/16 16:00 98.0 95 20 106/77 98 07/12/16 16:00 Room Air I/O 07/12/16 07/12/16 07/12/16 07/13/16 07/13/16 07/13/16 07:00 15:00 23:00 07:00 15:00 23:00 Intake Total 345 ml 600 ml 826 ml 588 ml Output Total 1025 ml 500 ml 500 ml 1050 ml Balance -680 ml 100 ml 326 ml -462 ml Intake Oral 240 ml 600 ml 720 ml 480 ml IV Total 105 ml 106 ml 108 ml Output Urine Total 1025 ml 500 ml 500 ml 1050 ml # Bowel Movements 0 1 1 0 Result Diagram: 07/12/16 0630 07/13/16 0539 Objective Remarks GENERAL: NAD, A&Ox3 SKIN: Warm and dry. HEAD: Normocephalic. EYES: No scleral icterus. No injection or drainage. NECK: Supple, trachea midline. No JVD or lymphadenopathy. CARDIOVASCULAR: Regular rate and rhythm without murmurs, gallops, or rubs. RESPIRATORY: Breath sounds equal bilaterally. No accessory muscle use. GASTROINTESTINAL: Abdomen soft, non-tender, nondistended. MUSCULOSKELETAL: No cyanosis, or edema. 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 Continue ambulation. No new complaints today. 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 Continue Percocet for pain control Continue OxyContin 40 mg by mouth every 12 hours Follow cultures Lauri Givens MD Jul 13, 2016 12:03
--- NOTE | 2016-07-13 12:17 | HHI.NPPN ---
Subjective Renal Failure: Acute Interval History excellent urine output. Creatinine is slightly higher today. Vancomycin level is acceptable as of 07/12/16. Review of Systems Musculoskeletal MS: Pain/Stiffness MS Remarks back pain Objective Data Data 07/12/16 07/13/16 19:00 07:00 Intake Total 600 ml 1414 ml Output Total 500 ml 1550 ml Balance 100 ml -136 ml Intake Oral 600 ml 1200 ml IV Total 214 ml Output Urine Total 500 ml 1550 ml # Bowel Movements 1 1 Vital Signs Date Time Temp Pulse Resp B/P Pulse Ox O2 Delivery O2 Flow Rate FiO2 07/13/16 08:00 98.1 96 18 116/80 96 07/13/16 08:00 Room Air 07/13/16 05:50 98.0 97 16 120/87 96 07/13/16 04:10 Room Air 07/13/16 00:12 97.8 92 16 140/91 94 07/13/16 00:00 Room Air 07/12/16 20:15 Room Air 07/12/16 19:47 98.1 89 16 130/83 97 07/12/16 16:00 98.0 95 20 106/77 98 07/12/16 16:00 Room Air -: 07/12/16 0630 07/13/16 0539 Physical Exam General Appearance: Well Developed, Well Nourished, No Acute Distress, Comfortable Eyes Eye Exam: Pupils Equal Throat Throat Exam: Oral Mucosa [place] & Moist Neck Neck Exam: Neck Supple Pulmonary Resp Exam: Clear Bilaterally, Breath Sounds Equal Cardiology CV Exam: Regular, Normal Sinus Rhythm, Good Perfusion Gastrointestinal/Abdomen GI Exam: Soft, Non-Tender, Bowel Sounds Present Musculoskeletal MS Exam: Joints Intact, Normal Gait, Normal Tone, Good Strength Integumentary Skin Exam: Warm, Dry Extremeties Extremities Exam: No Edema Neurologic Neuro Exam: Alert, Awake, Oriented, Speech Clear, Moving All Extremities Psychiatric Psych Exam: Appropriate Responses Assessment/Plan Discussed Condition With: Patient Assessment Summary: PREMA/Acute Renal Failure, Hypertension Problem List: (1) Renal failure Plan: non oliguric renal failure PREMA possibly due to sepsis, prerenal azotemia, but may have progressed to ATN. Post infectious GN is a possibility: C3 is low. C4 is normal, suggesting activation of alternate complement pathway. Renal function is stable, this may be his new baseline. Repeat labs. IVF stopped. Encouraged oral intake. Carefully monitor Vancomycin levels. (2) Epidural abscess Plan: ID is following, blood culture report: mycobacterium abscesses, also with Sphingomonas Caro catheter (removed) tip with GN rods, culture report reviewed he is currently on Cefoxitin , Zyvox, Biaxin, and vancomycin; Rocephin was stopped lactic acid has improved monitor drug levels, follow cultures, monitor clinically his pain regimen has been adjusted (3) HTN (hypertension) Plan: BP has been elevated give a does of clonidine and monitor (4) Thrombocytopenia Plan: improving, no acute bleeding (5) Intravenous drug abuse in remission Plan: encourage abstinence (6) Tobacco abuse Plan: cessation advised he was offered nicotine patch Problem Qualifiers (1) Renal failure: Qualified Code: N17.9 - Acute renal failure, unspecified acute renal failure type Freeman Aden MD Jul 13, 2016 12:17
[2016-07-14] MEDS: ceFOXitin INJ 2 GM in SODIUM CHLORIDE 0.9% INJ 100 ML IV SCH ×2 (01:04→12:23)
[2016-07-14] MEDS: oxyCODONE/ACETAMINOPHEN 10 MG/325 MG TAB PO PRN ×3 (02:11→10:32)
[2016-07-14] MEDS: METHOCARBAMOL 500 MG TAB PO SCH ×3 (05:14→21:05)
[2016-07-14 06:18] VITALS: BP 116/90; PULSE 98; RESP 18; O2SAT 95
[2016-07-14 08:00] VITALS: BP 137/87; PULSE 90; RESP 18; TEMP 97.8; O2SAT 97
[2016-07-14] MEDS: CLARITHROMYCIN 500 MG TAB PO SCH ×2 (09:00→21:06)
[2016-07-14] MEDS: SODIUM CHLORIDE 0.9% FLUSH 10 ML FLUSH IV FLUSH SCH ×2 (09:00→21:06)
[2016-07-14] MEDS: LINEZOLID 600 MG TAB PO SCH ×2 (09:00→21:06)
[2016-07-14] MEDS: DOCUSATE SODIUM 100 MG CAP PO SCH ×2 (09:00→21:00)
[2016-07-14] MEDS: LACTOBACILLUS ACIDOPHILUS TAB PO SCH ×4 (09:00→15:09)
[2016-07-14 09:27] LABS: BICARBONATE 24.8 MEQ/L (21.0-32.0); POTASSIUM 4.9 MEQ/L (3.5-5.1)
--- NOTE | 2016-07-14 10:01 | HHI.NPPN ---
Subjective Renal Failure: Acute Interval History Renal function fluctuant but overall stable. No new concerns. (Annelise Miranda) Review of Systems Musculoskeletal MS: Pain/Stiffness MS Remarks back pain (Annelise Miranda) Objective Data Data 07/13/16 07/14/16 19:00 07:00 Intake Total 720 ml 1064 ml Output Total 300 ml 1000 ml Balance 420 ml 64 ml Intake Oral 720 ml 960 ml IV Total 104 ml Output Urine Total 300 ml 1000 ml # Bowel Movements 1 1 Vital Signs Date Time Temp Pulse Resp B/P Pulse Ox O2 Delivery O2 Flow Rate FiO2 07/14/16 08:00 97.8 90 18 137/87 97 07/14/16 07:31 Room Air 21 07/14/16 06:18 98 18 116/90 95 07/14/16 03:09 16 07/13/16 23:55 98.3 93 18 125/82 95 07/13/16 20:45 Room Air 07/13/16 19:30 97.7 100 18 150/99 100 07/13/16 16:00 98.1 86 18 132/85 96 07/13/16 12:00 98.0 94 18 122/83 92 (Annelise Miranda) -: 07/12/16 0630 07/14/16 0602 Imaging Last Impressions Thoracic Spine CT 07/07/16 0000 Signed Impressions: Service Date/Time: Thursday, July 07, 2016 18:47 - CONCLUSION: 1. The only interval change has been the development of small bilateral pleural effusions and worsening consolidation within the right lower lobe. 2. Chronic changes involving the thoracic spine including paraspinal soft tissue swelling and chronic bony destructive changes as detailed in multiple prior studies consistent with osteomyelitis are stable. Gopal Cates Jr., MD Renal Ultrasound 07/04/16 0000 Signed Impressions: Service Date/Time: Monday, July 04, 2016 11:29 - CONCLUSION: 1. Echogenic kidneys which can be seen with medical renal disease. 2. Echogenic liver and splenomegaly. Roni Dominique MD Central Venous Line 07/04/16 0000 Signed Impressions: Service Date/Time: Monday, July 04, 2016 00:00 - CONCLUSION: Uncomplicated Permcath removal. Roshan Jain MD Chest X-Ray 07/03/16 8790 Signed Impressions: Service Date/Time: Sunday, July 03, 2016 23:01 - CONCLUSION: Mild right lung base atelectasis and/or infiltrate is seen. Soco Oliveira MD (Annelise Miranda. [employer]) Physical Exam General Appearance: Well Developed, Well Nourished, No Acute Distress, Comfortable, Sleeping (Annelise Miranda B. [employer]) Eyes Eye Exam: Pupils Equal (Annelise Miranda B. [employer]) Throat Throat Exam: Oral Mucosa [place] & Moist (Vini Mirnadaon B. [employer]) Neck Neck Exam: Neck Supple (Vini Mirandaon B. [employer]) Pulmonary Resp Exam: Clear Bilaterally, Breath Sounds Equal (Annelise Miranda B. [employer]) Cardiology CV Exam: Regular, Normal Sinus Rhythm, Good Perfusion (Vini Mirandaon B. [employer]) Gastrointestinal/Abdomen GI Exam: Soft, Non-Tender, Bowel Sounds Present (Annelise Miranda B. [employer]) Musculoskeletal MS Exam: Joints Intact, Normal Gait, Normal Tone, Good Strength (Annelise Miranda B. [employer]) Integumentary Skin Exam: Warm, Dry Skin Remarks upper T spine dressing in place (Annelise Miranda B. [employer]) Extremeties Extremities Exam: No Edema (Annelise Miranda B. [employer]) Neurologic Neuro Exam: Alert, Awake, Oriented, Speech Clear, Moving All Extremities ( Vini Mirandaon B. [employer]) Psychiatric Psych Exam: Appropriate Responses (Annelise Miranda B. [employer]) Assessment/Plan Discussed Condition With: Patient Assessment Summary: PREMA/Acute Renal Failure, Hypertension Problem List: (1) Renal failure Plan: non oliguric renal failure PREMA possibly due to sepsis, prerenal azotemia, but may have progressed to ATN. Post infectious GN is a possibility: C3 is low. C4 is normal, suggesting activation of alternate complement pathway. Renal function is fluctuant but overall stable, this may be his new baseline. no acute electrolyte issues he is tolerating oral fluids off IVF, avoid nephrotoxic medications. Carefully monitor Vancomycin levels. we will sign off at this time. Please reconsult us if necessary (2) Epidural abscess Plan: ID is following, blood culture report: mycobacterium abscesses, also with Sphingomonas Caro catheter (removed) tip with GN rods, culture report reviewed he is currently on Cefoxitin , Zyvox, Biaxin, and vancomycin; levaquin added PO lactic acid normal monitor drug levels, follow cultures, monitor clinically ID is managing antibiotic therapy (3) HTN (hypertension) Plan: BP is better he is not on antihypertensives monitor (4) Thrombocytopenia Plan: improving, no acute bleeding (5) Intravenous drug abuse in remission Plan: encourage abstinence (6) Tobacco abuse Plan: cessation advised he was offered nicotine patch (Annelise Miranda) Plan Renal function is stable. I will be available as needed over the weekend. Avoid nephrotoxic agents. (Freeman Aden MD) Problem Qualifiers (1) Renal failure: Qualified Code: N17.9 - Acute renal failure, unspecified acute renal failure type Annelise Miranda Jul 14, 2016 10:01 Freeman Aden MD Jul 14, 2016 13:53
[2016-07-14] MEDS: oxyCODONE HCL 40 MG CONTROLLED RELEASE TAB PO SCH ×2 (10:32→21:06)
[2016-07-14 12:00] VITALS: BP 131/93; PULSE 110; RESP 20; TEMP 97.7; O2SAT 95
[2016-07-14] MEDS: VANCOMYCIN 1,000 MG/NS 250 ML IV SCH ×2 (12:00)
--- NOTE | 2016-07-14 13:42 | HHI.PR ---
Subjective Remarks The patient does not feel that his Percocet is working any longer. He may develop tolerance. Long-acting OxyContin appears to be beneficial however. She requests being changed to Dilaudid as an alternative. Objective Vital Signs Date Time Temp Pulse Resp B/P Pulse Ox O2 Delivery O2 Flow Rate FiO2 07/14/16 11:03 07/14/16 08:00 97.8 90 18 137/87 97 07/14/16 07:31 Room Air 21 07/14/16 06:18 98 18 116/90 95 07/14/16 03:09 16 07/13/16 23:55 98.3 93 18 125/82 95 07/13/16 20:45 Room Air 07/13/16 19:30 97.7 100 18 150/99 100 07/13/16 16:00 98.1 86 18 132/85 96 I/O 07/13/16 07/13/16 07/13/16 07/14/16 07/14/16 07/14/16 07:00 15:00 23:00 07:00 15:00 23:00 Intake Total 588 ml 720 ml 480 ml 584 ml Output Total 1050 ml 300 ml 450 ml 550 ml Balance -462 ml 420 ml 30 ml 34 ml Intake Oral 480 ml 720 ml 480 ml 480 ml IV Total 108 ml 104 ml Output Urine Total 1050 ml 300 ml 450 ml 550 ml # Bowel Movements 0 1 1 0 Result Diagram: 07/12/16 0630 07/14/16 0602 Objective Remarks GENERAL: NAD, A&Ox3 SKIN: Warm and dry. HEAD: Normocephalic. EYES: No scleral icterus. No injection or drainage. NECK: Supple, trachea midline. No JVD or lymphadenopathy. CARDIOVASCULAR: Regular rate and rhythm without murmurs, gallops, or rubs. RESPIRATORY: Breath sounds equal bilaterally. No accessory muscle use. GASTROINTESTINAL: Abdomen soft, non-tender, nondistended. MUSCULOSKELETAL: No cyanosis, or edema. 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 Continue ambulation. No new complaints today. Stop Percocet. Start oral Dilaudid. Monitor for improvement in pain control. 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 Stop Percocet for pain control Continue OxyContin 40 mg by mouth every 12 hours Start Dilaudid 4 mg by mouth every 4 hours as needed for pain Follow cultures Lauri Givens MD Jul 14, 2016 13:42
[2016-07-14] MEDS: LEVOFLOXACIN 750 MG TAB PO SCH (13:59)
[2016-07-14] MEDS: HYDROmorphone HCL 4 MG TAB PO PRN ×3 (14:08→22:21)
[2016-07-14 16:00] VITALS: BP 127/91; PULSE 93; RESP 18; TEMP 98; O2SAT 96
[2016-07-14 20:30] VITALS: BP 128/92; PULSE 93; RESP 16; TEMP 97.8; O2SAT 96
[2016-07-14 23:35] VITALS: BP 120/80; PULSE 98; RESP 16; TEMP 98.2; O2SAT 97
[2016-07-15] MEDS: ceFOXitin INJ 2 GM in SODIUM CHLORIDE 0.9% INJ 100 ML IV SCH ×2 (00:01→12:24)
[2016-07-15] MEDS: HYDROmorphone HCL 4 MG TAB PO PRN ×6 (02:23→21:35)
[2016-07-15 04:45] VITALS: BP 113/73; PULSE 98; RESP 16; TEMP 98.3; O2SAT 96
[2016-07-15] MEDS: METHOCARBAMOL 500 MG TAB PO SCH ×3 (06:19→20:53)
[2016-07-15] MEDS: LACTOBACILLUS ACIDOPHILUS TAB PO SCH ×3 (09:00→14:32)
[2016-07-15] MEDS: DOCUSATE SODIUM 100 MG CAP PO SCH ×2 (09:00→20:53)
[2016-07-15 10:15] VITALS: BP 160/99; PULSE 74; RESP 17; TEMP 97.8; O2SAT 99
--- NOTE | 2016-07-15 10:15 | HHI.PR ---
Subjective Remarks Patient reports better pain control with change in pain treatments yesterday. He is ambulating that improved frequency. He is ambulating longer distances to time. Objective Vital Signs Date Time Temp Pulse Resp B/P Pulse Ox O2 Delivery O2 Flow Rate FiO2 07/15/16 07:29 Room Air 07/15/16 04:45 98.3 98 16 113/73 96 07/15/16 03:13 16 07/14/16 23:35 98.2 98 16 120/80 97 07/14/16 21:05 Room Air 07/14/16 20:30 97.8 93 16 128/92 96 07/14/16 16:00 98.0 93 18 127/91 96 07/14/16 12:00 97.7 110 20 131/93 95 07/14/16 11:03 I/O 07/14/16 07/14/16 07/14/16 07/15/16 07/15/16 07/15/16 07:00 15:00 23:00 07:00 15:00 23:00 Intake Total 584 ml 830 ml 720 ml 826 ml Output Total 550 ml 175 ml 600 ml 600 ml Balance 34 ml 655 ml 120 ml 226 ml Intake Oral 480 ml 480 ml 720 ml 720 ml IV Total 104 ml 350 ml 106 ml Output Urine Total 550 ml 175 ml 600 ml 600 ml # Voids 1 # Bowel Movements 0 1 0 0 Result Diagram: 07/12/16 0630 07/15/16 0750 Objective Remarks GENERAL: NAD, A&Ox3 SKIN: Warm and dry. HEAD: Normocephalic. EYES: No scleral icterus. No injection or drainage. NECK: Supple, trachea midline. No JVD or lymphadenopathy. CARDIOVASCULAR: Regular rate and rhythm without murmurs, gallops, or rubs. RESPIRATORY: Breath sounds equal bilaterally. No accessory muscle use. GASTROINTESTINAL: Abdomen soft, non-tender, nondistended. MUSCULOSKELETAL: No cyanosis, or edema. 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 Improved pain control. Improving and ventilation. Change in antibiotic treatment is pending, completion of current therapy on 07/19/16. 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 Stop Percocet for pain control Continue OxyContin 40 mg by mouth every 12 hours Start Dilaudid 4 mg by mouth every 4 hours as needed for pain Follow cultures Lauri Givens MD Jul 15, 2016 10:15
[2016-07-15] MEDS: LINEZOLID 600 MG TAB PO SCH ×2 (10:17→20:53)
[2016-07-15] MEDS: CLARITHROMYCIN 500 MG TAB PO SCH ×2 (10:18→21:34)
[2016-07-15] MEDS: oxyCODONE HCL 40 MG CONTROLLED RELEASE TAB PO SCH ×2 (10:18→20:53)
[2016-07-15] MEDS: SODIUM CHLORIDE 0.9% FLUSH 10 ML FLUSH IV FLUSH SCH ×2 (10:19→20:56)
[2016-07-15] MEDS: VANCOMYCIN 1,000 MG/NS 250 ML IV SCH ×2 (12:24)
[2016-07-15 14:15] VITALS: BP 131/92; PULSE 91; RESP 17; O2SAT 97
[2016-07-15 20:00] VITALS: BP 130/88; PULSE 94; RESP 14; TEMP 98.1; O2SAT 99
[2016-07-16] VITALS: BP 132/95; PULSE 106; RESP 16; TEMP 97.8; O2SAT 97
[2016-07-16] MEDS: HYDROmorphone HCL 4 MG TAB PO PRN ×6 (01:27→22:01)
[2016-07-16] MEDS: ceFOXitin INJ 2 GM in SODIUM CHLORIDE 0.9% INJ 100 ML IV SCH ×2 (01:28→12:36)
[2016-07-16 04:00] VITALS: BP 111/68; PULSE 96; RESP 14; TEMP 97.8; O2SAT 96
[2016-07-16] MEDS: METHOCARBAMOL 500 MG TAB PO SCH ×3 (05:28→21:00)
[2016-07-16 08:00] VITALS: BP 135/93; PULSE 100; RESP 18; TEMP 98.1; O2SAT 96
[2016-07-16] MEDS: LACTOBACILLUS ACIDOPHILUS TAB PO SCH ×3 (10:27→17:25)
[2016-07-16] MEDS: oxyCODONE HCL 40 MG CONTROLLED RELEASE TAB PO SCH ×2 (10:27→21:00)
[2016-07-16] MEDS: LINEZOLID 600 MG TAB PO SCH ×2 (10:27→21:00)
[2016-07-16] MEDS: CLARITHROMYCIN 500 MG TAB PO SCH ×2 (10:27→21:00)
--- NOTE | 2016-07-16 10:27 | HHI.PR ---
Subjective Remarks No new complaints. Pain is present but controlled. Primary antibiotic therapy is to be completed on 07/19/16. Objective Vital Signs Date Time Temp Pulse Resp B/P Pulse Ox O2 Delivery O2 Flow Rate FiO2 07/16/16 08:00 98.1 100 18 135/93 96 07/16/16 04:00 97.8 96 14 111/68 96 07/16/16 00:00 97.8 106 16 132/95 97 07/15/16 21:04 Room Air 07/15/16 20:00 98.1 94 14 130/88 99 07/15/16 14:15 91 17 131/92 97 I/O 07/15/16 07/15/16 07/15/16 07/16/16 07/16/16 07/16/16 07:00 15:00 23:00 07:00 15:00 23:00 Intake Total 826 ml 250 ml 600 ml 240 ml Output Total 600 ml 400 ml 1200 ml Balance 226 ml 250 ml 200 ml -960 ml Intake Oral 720 ml 600 ml 240 ml IV Total 106 ml 250 ml Output Urine Total 600 ml 400 ml 1200 ml # Bowel Movements 0 0 0 Result Diagram: 07/12/16 0630 07/15/16 0750 Objective Remarks GENERAL: NAD, A&Ox3 SKIN: Warm and dry. HEAD: Normocephalic. EYES: No scleral icterus. No injection or drainage. NECK: Supple, trachea midline. No JVD or lymphadenopathy. CARDIOVASCULAR: Regular rate and rhythm without murmurs, gallops, or rubs. RESPIRATORY: Breath sounds equal bilaterally. No accessory muscle use. GASTROINTESTINAL: Abdomen soft, non-tender, nondistended. MUSCULOSKELETAL: No cyanosis, or edema. 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 Pain control. Patient is ambulating with a walker. Change in antibiotic treatment is pending, completion of current therapy on 07/19/16. 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 Stop Percocet for pain control Continue OxyContin 40 mg by mouth every 12 hours Start Dilaudid 4 mg by mouth every 4 hours as needed for pain Follow cultures Lauri Givens MD Jul 16, 2016 10:27
[2016-07-16] MEDS: DOCUSATE SODIUM 100 MG CAP PO SCH ×2 (10:28→21:00)
[2016-07-16] MEDS: SODIUM CHLORIDE 0.9% FLUSH 10 ML FLUSH IV FLUSH SCH ×2 (10:28→21:00)
[2016-07-16] MEDS: VANCOMYCIN 1,000 MG/NS 250 ML IV SCH ×2 (10:33)
[2016-07-16 12:00] VITALS: BP 118/83; PULSE 95; RESP 18; TEMP 98; O2SAT 96
[2016-07-16] MEDS: LEVOFLOXACIN 750 MG TAB PO SCH (12:36)
[2016-07-16 16:00] VITALS: BP 132/87; PULSE 82; RESP 18; TEMP 98.1; O2SAT 91
[2016-07-16 20:00] VITALS: BP 122/86; PULSE 83; RESP 16; TEMP 98.1; O2SAT 97
[2016-07-17] VITALS (7 sets, daily range): BP systolic 107–128; BP diastolic 66–88; PULSE 72–105; RESP 16–18; TEMP 97.6–98.8; O2SAT 91–98
[2016-07-17] MEDS: HYDROmorphone HCL 4 MG TAB PO PRN ×6 (01:29→22:13)
[2016-07-17] MEDS: ceFOXitin INJ 2 GM in SODIUM CHLORIDE 0.9% INJ 100 ML IV SCH ×2 (01:29→13:22)
[2016-07-17] MEDS: METHOCARBAMOL 500 MG TAB PO SCH ×3 (05:21→20:29)
[2016-07-17] MEDS: DOCUSATE SODIUM 100 MG CAP PO SCH ×2 (09:00→20:28)
[2016-07-17] MEDS: SODIUM CHLORIDE 0.9% FLUSH 10 ML FLUSH IV FLUSH SCH ×2 (09:00→20:29)
[2016-07-17] MEDS: LACTOBACILLUS ACIDOPHILUS TAB PO SCH ×3 (09:27→18:00)
[2016-07-17] MEDS: oxyCODONE HCL 40 MG CONTROLLED RELEASE TAB PO SCH ×2 (09:27→20:29)
[2016-07-17] MEDS: LINEZOLID 600 MG TAB PO SCH ×2 (09:27→20:29)
[2016-07-17] MEDS: CLARITHROMYCIN 500 MG TAB PO SCH ×2 (09:27→20:28)
--- NOTE | 2016-07-17 10:12 | HHI.PR ---
Subjective Remarks Primary antibiotic therapy is to be completed on 07/19/16. She complains of neuropathic pain whenever he lays down after walking. Neuropathic type pains or his primary pain complaint. She has not tried specific neuropathy treatments. Objective Vital Signs Date Time Temp Pulse Resp B/P Pulse Ox O2 Delivery O2 Flow Rate FiO2 07/17/16 08:50 Room Air 07/17/16 08:27 97.8 98 18 119/80 96 07/17/16 04:00 97.8 88 18 119/79 96 07/17/16 00:00 97.8 89 16 107/72 96 07/16/16 21:10 Room Air 07/16/16 20:00 98.1 83 16 122/86 97 07/16/16 16:00 98.1 82 18 132/87 91 07/16/16 12:00 98.0 95 18 118/83 96 I/O 07/16/16 07/16/16 07/16/16 07/17/16 07/17/16 07/17/16 07:00 15:00 23:00 07:00 15:00 23:00 Intake Total 240 ml 480 ml 480 ml 720 ml Output Total 1200 ml 475 ml 525 ml 800 ml Balance -960 ml 5 ml -45 ml -80 ml Intake Oral 240 ml 480 ml 480 ml 720 ml Output Urine Total 1200 ml 475 ml 525 ml 800 ml # Bowel Movements 0 0 0 0 Result Diagram: 07/17/16 0627 Objective Remarks GENERAL: NAD, A&Ox3 SKIN: Warm and dry. HEAD: Normocephalic. EYES: No scleral icterus. No injection or drainage. NECK: Supple, trachea midline. No JVD or lymphadenopathy. CARDIOVASCULAR: Regular rate and rhythm without murmurs, gallops, or rubs. RESPIRATORY: Breath sounds equal bilaterally. No accessory muscle use. GASTROINTESTINAL: Abdomen soft, non-tender, nondistended. MUSCULOSKELETAL: No cyanosis, or edema. 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 Pain control. Patient is ambulating with a walker. Amitriptyline added to attempt to better control his neuropathic pains. 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 Stop Percocet for pain control Continue OxyContin 40 mg by mouth every 12 hours Start Dilaudid 4 mg by mouth every 4 hours as needed for pain Follow cultures Lauri Givens MD Jul 17, 2016 10:11
[2016-07-17] MEDS ORDERED: AMITRIPTYLINE HCL 25 MG TAB PO ONE (10:15)
[2016-07-17] MEDS: VANCOMYCIN 1,000 MG/NS 250 ML IV SCH ×2 (13:21)
[2016-07-18] VITALS: BP 126/92; PULSE 92; RESP 20; TEMP 97.6; O2SAT 97
[2016-07-18] MEDS: ceFOXitin INJ 2 GM in SODIUM CHLORIDE 0.9% INJ 100 ML IV SCH (02:10)
[2016-07-18] MEDS: HYDROmorphone HCL 4 MG TAB PO PRN ×6 (02:12→22:47)
[2016-07-18 05:42] VITALS: BP 105/64; PULSE 105; RESP 20; TEMP 98.4; O2SAT 96
[2016-07-18] MEDS: METHOCARBAMOL 500 MG TAB PO SCH ×3 (06:15→21:05)
[2016-07-18 08:01] VITALS: BP 119/82; PULSE 101; RESP 18; TEMP 97.7; O2SAT 98
[2016-07-18] MEDS ORDERED: WALKER WHEELS/F1 MIS (08:54)
[2016-07-18] MEDS: LACTOBACILLUS ACIDOPHILUS TAB PO SCH ×3 (09:00→17:49)
[2016-07-18] MEDS: DOCUSATE SODIUM 100 MG CAP PO SCH ×2 (09:00→21:00)
--- NOTE | 2016-07-18 09:34 | HHI.PR ---
Subjective Remarks In bed. Says back pain is controlled by meds, no n/v/d/c. No fever or chills. Denies sob, or chest pain. Objective Vitals Vital Signs Date Time Temp Pulse Resp B/P Pulse Ox O2 Delivery O2 Flow Rate FiO2 07/18/16 08:01 97.7 101 18 119/82 98 07/18/16 05:42 98.4 105 20 105/64 96 07/18/16 03:16 18 07/18/16 00:00 97.6 92 20 126/92 97 07/18/16 00:00 Room Air 07/17/16 20:30 Room Air 07/17/16 20:00 97.9 86 18 127/88 98 07/17/16 16:01 97.6 89 18 118/79 97 07/17/16 12:30 97.6 105 18 112/68 96 I/O 07/17/16 07/17/16 07/17/16 07/18/16 07/18/16 07/18/16 07:00 15:00 23:00 07:00 15:00 23:00 Intake Total 720 ml 840 ml 102 ml 346 ml Output Total 800 ml 400 ml 1150 ml 425 ml Balance -80 ml 440 ml -1048 ml -79 ml Intake Oral 720 ml 840 ml 100 ml 240 ml IV Total 2 ml 106 ml Output Urine Total 800 ml 400 ml 1150 ml 425 ml # Bowel Movements 0 1 0 0 Result Diagram: 07/18/16 0733 Imaging Last Impressions Thoracic Spine CT 07/07/16 0000 Signed Impressions: Service Date/Time: Thursday, July 07, 2016 18:47 - CONCLUSION: 1. The only interval change has been the development of small bilateral pleural effusions and worsening consolidation within the right lower lobe. 2. Chronic changes involving the thoracic spine including paraspinal soft tissue swelling and chronic bony destructive changes as detailed in multiple prior studies consistent with osteomyelitis are stable. Gopal Cates Jr., MD Renal Ultrasound 07/04/16 0000 Signed Impressions: Service Date/Time: Monday, July 04, 2016 11:29 - CONCLUSION: 1. Echogenic kidneys which can be seen with medical renal disease. 2. Echogenic liver and splenomegaly. Roni Dominique MD Central Venous Line 07/04/16 0000 Signed Impressions: Service Date/Time: Monday, July 04, 2016 00:00 - CONCLUSION: Uncomplicated Permcath removal. Roshan Jain MD Chest X-Ray 07/03/16 2811 Signed Impressions: Service Date/Time: Sunday, July 03, 2016 23:01 - CONCLUSION: Mild right lung base atelectasis and/or infiltrate is seen. Soco Oliveira MD Objective Remarks GENERAL: NAD, A&Ox3 SKIN: Warm and dry. HEAD: Normocephalic. EYES: No scleral icterus. No injection or drainage. NECK: Supple, trachea midline. No JVD or lymphadenopathy. CARDIOVASCULAR: Regular rate and rhythm without murmurs, gallops, or rubs. RESPIRATORY: Breath sounds equal bilaterally. No accessory muscle use. GASTROINTESTINAL: Abdomen soft, non-tender, nondistended. MUSCULOSKELETAL: No cyanosis, or edema. A/P Assessment and Plan 41-year-old male admitted with MSSA spinal abscess and also mellitus. Pain control. Patient is ambulating with a walker. Amitriptyline added to attempt to better control his neuropathic pains. 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 Stop Percocet for pain control Continue OxyContin 40 mg by mouth every 12 hours Start Dilaudid 4 mg by mouth every 4 hours as needed for pain Follow cultures DC plan : poss DC tomorrow 07/19/16 after seen by ID specialist Dr Wadsworth Discussed with the patient, nurse, ID Dr Wadsworth. Dr Wadsworth will review tomorrow abx and place orders for abx at discharge Ariadna Sotomayor MD Jul 18, 2016 09:34
[2016-07-18] MEDS: CLARITHROMYCIN 500 MG TAB PO SCH ×2 (09:35→21:05)
[2016-07-18] MEDS: oxyCODONE HCL 40 MG CONTROLLED RELEASE TAB PO SCH ×2 (09:35→21:06)
[2016-07-18] MEDS: SODIUM CHLORIDE 0.9% FLUSH 10 ML FLUSH IV FLUSH SCH ×2 (09:36→21:06)
[2016-07-18] MEDS: LINEZOLID 600 MG TAB PO SCH (09:36)
[2016-07-18] MEDS ORDERED: DILA4TAB2 PO (09:40)
[2016-07-18] MEDS ORDERED: DOCU1CAP39 PO (09:40)
[2016-07-18] MEDS ORDERED: METH500T3 PO (09:40)
[2016-07-18] MEDS ORDERED: OXYC-259 PO (09:40)
[2016-07-18] MEDS ORDERED: LACT PO (09:40)
[2016-07-18] MEDS ORDERED: AMIT25TA9 PO (09:40)
[2016-07-18] MEDS ORDERED: CLAR500T PO (09:51)
[2016-07-18] MEDS ORDERED: ZYVO600T PO (09:51)
[2016-07-18] MEDS ORDERED: LEVO750T3 PO (09:51)
--- NOTE | 2016-07-18 09:52 | HHI.DS ---
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 The patient had his pain medications decreased in frequency from every 4 hours to every 6 hours so he decided to leave the hospital. He left the hospital with a Caro catheter in place. He continued to have severe back pain and has not been taking his antibiotics as recommended so he decided to come back to the hospital. He went to an outside hospital yesterday who discharged him home and recommended he follow up with his neurosurgeon at our hospital. The patient endorses chills from time to time. He says he has been using Dilaudid but has not been injecting it. He says he has been crushing it and snorting it. He says the last time he worked with physical therapy they said he was doing fine. He was requesting an albuterol inhaler. CBC/BMP: 07/18/16 0733 Significant Findings Laboratory Tests Test 07/17/16 07/18/16 06:27 07:33 Creatinine 1.65 MG/DL 1.69 MG/DL (0.60-1.30) (0.60-1.30) Estimat Glomerular Filtration 46 ML/MIN (>89) 45 ML/MIN (>89) Rate Imaging Last Impressions Thoracic Spine CT 07/07/16 0000 Signed Impressions: Service Date/Time: Thursday, July 07, 2016 18:47 - CONCLUSION: 1. The only interval change has been the development of small bilateral pleural effusions and worsening consolidation within the right lower lobe. 2. Chronic changes involving the thoracic spine including paraspinal soft tissue swelling and chronic bony destructive changes as detailed in multiple prior studies consistent with osteomyelitis are stable. Gopal Cates Jr., MD Renal Ultrasound 07/04/16 0000 Signed Impressions: Service Date/Time: Monday, July 04, 2016 11:29 - CONCLUSION: 1. Echogenic kidneys which can be seen with medical renal disease. 2. Echogenic liver and splenomegaly. Roni Dominique MD Central Venous Line 07/04/16 0000 Signed Impressions: Service Date/Time: Monday, July 04, 2016 00:00 - CONCLUSION: Uncomplicated Permcath removal. Roshan Jain MD Chest X-Ray 07/03/16 225 Signed Impressions: Service Date/Time: Sunday, July 03, 2016 23:01 - CONCLUSION: Mild right lung base atelectasis and/or infiltrate is seen. Soco Oliveira MD PE at Discharge GENERAL: Pt encountered laying a bed, awake and alert, pleasant and cooperative. SKIN: Warm and dry. HEAD: Normocephalic. EYES: No scleral icterus. No injection or drainage. NECK: Supple, trachea midline. No lymphadenopathy. CARDIOVASCULAR: Regular rate and rhythm without murmurs, gallops, or rubs. RESPIRATORY: Breath sounds equal bilaterally with mild expiratory wheeze noted left lung. No accessory muscle use. GASTROINTESTINAL: Abdomen soft, non-tender, nondistended. MUSCULOSKELETAL: No cyanosis, or edema. PSYCHIATRIC: A&Ox3, no overt signs of anxiety and/or depression. Hospital Course 41-year-old male admitted with MSSA spinal abscess and also mellitus. Pain control. Patient is ambulating with a walker. Amitriptyline added to attempt to better control his neuropathic pains. 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 To followup as OP with PCP and consultants. Patient has a wheeled walker in the room. Pt Condition on Discharge: Stable Discharge Disposition: Discharge Home Discharge Time: > 30 minutes Discharge Instructions DIET: Follow Instructions for: As Tolerated, No Restrictions Activities you can perform: Regular-No Restrictions Follow up Referrals: Infectious Disease - 1 Week with Shanelle Gaines MD Nephrology - 1 Week Neurosurgery - 1 Week PCP Follow-up - 3-5 Days with Bienvenido Menjivar D.o. New Medications: Clarithromycin (Biaxin) 500 Mg Tab 500 MG PO BID Infection #60 Ref 2 TAB Dicloxacillin (Dicloxacillin) 500 Mg Cap 500 MG PO QID Infection #120 Ref 2 CAP Hydromorphone (Dilaudid) 4 Mg Tab 4 MG PO Q8H PRN Pain Management #10 Ref 0 TAB Levofloxacin (Levaquin) 750 Mg Tab 750 MG PO Q48H Infection #4 Ref 0 TAB Oxycodone ER (Oxycontin) 10 Mg Tab 40 MG PO Q12HR Pain Management #20 Ref 0 TAB Walker with Front Wheels (Walker with Front Wheels) 1 Mis Mis 1 EA .ROUTE DIRECTED #1 Ref 0 EA Amitriptyline (Amitriptyline) 25 Mg Tab 25 MG PO HS neuropathic pain #30 TAB Docusate Sodium (Dok) 100 Mg Cap 100 MG PO Q12HR Constipation #30 CAP Lactobacillus Acidophilus (Acidophilus/l-Sporogenes) 1 Tab Tab 1 TAB PO TID diarrhea #30 TAB Methocarbamol (Methocarbamol) 500 Mg Tab 500 MG PO Q8HR muscle relaxant #90 TAB Ariadna Sotomayor MD Jul 18, 2016 09:52
[2016-07-18] MEDS ORDERED: PHARMACY ORDERED LAB ONE (11:45)
--- NOTE | 2016-07-18 12:24 | HHI.IDPN ---
Subjective Subjective Remarks 41 year old male with MSSA recurrent epidural abscess/osteo, S/P surgery. has developed M abscessus sepsis Signed out AMA, and came back for back pain Notes reviewed Temps ok M abscessus susceptibility is back Last dose of IV vanco is 07/19 He has been on 3 Abx for the M abscessus since 07/04 No new complaints Labs reviewed Antibiotics Zyvox Biaxin Cefoxitin Vancomycin levaquin Lines Central line Past Medical History Reviewed Allergies: Coded Allergies: Aspirin (Verified Allergy, Severe, 07/03/16) PATIENT STATES HE HAD A HOLE IN HIS HEART WHEN HE WAS BORN AND HE WAS TOLD NOT TO TAKE ASPIRIN. M[facility] MAR STATES NO KNOWN ALLERGIES PATIENT DENIES ALLERGY TO ASPIRIN. 04/01/13 Objective . Vital Signs Date Time Temp Pulse Resp B/P Pulse Ox O2 Delivery O2 Flow Rate FiO2 07/18/16 08:01 97.7 101 18 119/82 98 07/18/16 05:42 98.4 105 20 105/64 96 07/18/16 03:16 18 07/18/16 00:00 97.6 92 20 126/92 97 07/18/16 00:00 Room Air 07/17/16 20:30 Room Air 07/17/16 20:00 97.9 86 18 127/88 98 07/17/16 16:01 97.6 89 18 118/79 97 07/17/16 12:30 97.6 105 18 112/68 96 07/17/16 07/17/16 07/18/16 15:00 23:00 07:00 Intake Total 840 ml 102 ml 346 ml Output Total 400 ml 1150 ml 425 ml Balance 440 ml -1048 ml -79 ml Intake Oral 840 ml 100 ml 240 ml IV Total 2 ml 106 ml Output Urine Total 400 ml 1150 ml 425 ml # Bowel Movements 1 0 0 . Laboratory Tests Test 07/17/16 07/18/16 06:27 07:33 Creatinine 1.65 MG/DL 1.69 MG/DL Estimat Glomerular Filtration 46 ML/MIN 45 ML/MIN Rate Imaging Last Impressions Renal Ultrasound 07/04/16 0000 Signed Impressions: Service Date/Time: Monday, July 04, 2016 11:29 - CONCLUSION: 1. Echogenic kidneys which can be seen with medical renal disease. 2. Echogenic liver and splenomegaly. Roni Dominique MD Central Venous Line 07/04/16 0000 Signed Impressions: Service Date/Time: Monday, July 04, 2016 00:00 - CONCLUSION: Uncomplicated Permcath removal. Roshan Jain MD Chest X-Ray 07/03/16 2251 Signed Impressions: Service Date/Time: Sunday, July 03, 2016 23:01 - CONCLUSION: Mild right lung base atelectasis and/or infiltrate is seen. Soco Oliveira MD Physical Exam GENERAL: awake and alert, not in respiratory distress. SKIN: Warm and dry. No generalized rash, no ecchymoses and no evidence of embolic lesions. HEAD: Atraumatic. Normocephalic. No temporal wasting, or tenderness. EYES: [place] conjunctiva. No petechia or hemorrhage. No scleral icterus. No injection or drainage. EARS, NOSE AND THROAT: Nose without bleeding or purulent nasal discharge. No sinus tenderness. Mucous membranes pink and moist. No oral lesions noted. No exudate. No oral thrush. NECK: Trachea midline. Supple and not tender, no meningeal signs CARDIOVASCULAR: Regular rate and rhythm. No murmurs, rubs or gallops heard RESPIRATORY: Clear to auscultation. Breath sounds equal bilaterally. No rales , wheezing or rhonchi ABDOMEN: Soft, non-tender, nondistended. Bowel sounds present and normoactive. No guarding. No rebound. No organomegaly. EXTREMITIES: No clubbing, cyanosis, or edema.No joint effusion, has good ROM. No calf tenderness. Well perfused and warm. NEUROLOGICAL: Awake and alert. Cranial nerves grossly intact. Motor grossly within normal limits. BACK: Incision is dry, no redness or drainage PSYCHIATRIC: Normal affect, calm and cooperative. 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 Paraspinal abscess/epidural abscess S/P OR - per NS, abscess did not communicate in thoracic cavity Previous Rx for osteo thoracic, removal of thoracic hardware last 2013, with MSSA Previous Rx MSSA osteo of spine 2011 Known IVDU M abscessus bacteremia, prolonged, likely line related - patient has used his Caro for self injection Thrombocytopenia, ?DIC, better Acute renal failure, ?meds, ?infarct, ?volume - better Sphingomonas bacteremia, line related RECOMMENDATION Continue IV Vanco - give at least until 07/19 End date for his MSSA infection is July 19 Start Dicloxacillin for chronic Abx for his MSSA recurrent infection in back - give for another 2 months 500 QID, then chronic suppression 500 BID - will refer to Dr Méndez for follow-up Patient has received about 2 weeks, longer if previous admission included for his M abscessus - will stop Cefoxitin and Zyvox - Contrinue Biaxin and give x 3 months Give Levaquin until July 25 (14 days Rx for the GNR in ) Can be D/C after dose of vanco tomorrow morning Consult CM - to evaluate his insurance coverage for his oral Abx I have printed his Abx Rx D/C tomorrow after dose of Vanco and arrangements for all his oral Abx D/W Dr Sotomayor Spoke with upper caser Genie Wadsworth MD Jul 18, 2016 12:24
[2016-07-18] MEDS ORDERED: BIAX500T PO (12:29)
[2016-07-18] MEDS ORDERED: DICL500 PO (12:31)
[2016-07-18] MEDS ORDERED: LEVA750T PO (12:31)
[2016-07-18] MEDS: LEVOFLOXACIN 750 MG TAB PO SCH (13:19)
[2016-07-18] MEDS: VANCOMYCIN 1,000 MG/NS 250 ML IV SCH ×2 (13:20)
[2016-07-18 18:26] VITALS: BP 131/90; PULSE 98; RESP 18; TEMP 98.7; O2SAT 100
[2016-07-18 20:00] VITALS: BP 120/84; PULSE 97; RESP 18; TEMP 98.4; O2SAT 98
[2016-07-18] MEDS ORDERED: AMITRIPTYLINE HCL 25 MG TAB PO SCH (21:00)
[2016-07-19] VITALS: BP 121/82; PULSE 115; RESP 18; TEMP 98; O2SAT 95
[2016-07-19] MEDS: HYDROmorphone HCL 4 MG TAB PO PRN ×4 (02:57→15:38)
[2016-07-19] MEDS: METHOCARBAMOL 500 MG TAB PO SCH ×2 (05:21→15:37)
[2016-07-19 08:00] VITALS: BP 130/78; PULSE 82; RESP 16; TEMP 98; O2SAT 94
[2016-07-19] MEDS: SODIUM CHLORIDE 0.9% FLUSH 10 ML FLUSH IV FLUSH SCH (08:08)
[2016-07-19] MEDS: oxyCODONE HCL 40 MG CONTROLLED RELEASE TAB PO SCH (08:09)
[2016-07-19] MEDS: LACTOBACILLUS ACIDOPHILUS TAB PO SCH ×2 (09:03→12:14)
[2016-07-19] MEDS: CLARITHROMYCIN 500 MG TAB PO SCH (09:03)
[2016-07-19] MEDS: DOCUSATE SODIUM 100 MG CAP PO SCH (09:03)
--- NOTE | 2016-07-19 09:49 | HHI.PR ---
Subjective Remarks In bed, pain is controlled by meds. No n/v/d/c. No fever or chills overnight. Objective Vitals Vital Signs Date Time Temp Pulse Resp B/P Pulse Ox O2 Delivery O2 Flow Rate FiO2 07/19/16 08:15 Room Air 07/19/16 08:00 98.0 82 16 130/78 94 07/19/16 04:49 18 07/19/16 00:00 98.0 115 18 121/82 95 07/18/16 21:05 Room Air 07/18/16 20:00 98.4 97 18 120/84 98 07/18/16 18:26 98.7 98 18 131/90 100 I/O 07/18/16 07/18/16 07/18/16 07/19/16 07/19/16 07/19/16 07:00 15:00 23:00 07:00 15:00 23:00 Intake Total 346 ml 1000 ml 360 ml 360 ml Output Total 425 ml 1100 ml 500 ml 350 ml Balance -79 ml -100 ml -140 ml 10 ml Intake Oral 240 ml 1000 ml 360 ml 360 ml IV Total 106 ml 0 ml Output Urine Total 425 ml 1100 ml 500 ml 350 ml # Bowel Movements 0 0 1 0 Result Diagram: 07/18/16 0733 Imaging Last Impressions Thoracic Spine CT 07/07/16 0000 Signed Impressions: Service Date/Time: Thursday, July 07, 2016 18:47 - CONCLUSION: 1. The only interval change has been the development of small bilateral pleural effusions and worsening consolidation within the right lower lobe. 2. Chronic changes involving the thoracic spine including paraspinal soft tissue swelling and chronic bony destructive changes as detailed in multiple prior studies consistent with osteomyelitis are stable. Gopal Cates Jr., MD Renal Ultrasound 07/04/16 0000 Signed Impressions: Service Date/Time: Monday, July 04, 2016 11:29 - CONCLUSION: 1. Echogenic kidneys which can be seen with medical renal disease. 2. Echogenic liver and splenomegaly. Roni Dominique MD Central Venous Line 07/04/16 0000 Signed Impressions: Service Date/Time: Monday, July 04, 2016 00:00 - CONCLUSION: Uncomplicated Permcath removal. Roshan Jain MD Chest X-Ray 07/03/16 2259 Signed Impressions: Service Date/Time: Sunday, July 03, 2016 23:01 - CONCLUSION: Mild right lung base atelectasis and/or infiltrate is seen. Soco Oliveira MD Objective Remarks GENERAL: NAD, A&Ox3 SKIN: Warm and dry. HEAD: Normocephalic. EYES: No scleral icterus. No injection or drainage. NECK: Supple, trachea midline. No JVD or lymphadenopathy. CARDIOVASCULAR: Regular rate and rhythm without murmurs, gallops, or rubs. RESPIRATORY: Breath sounds equal bilaterally. No accessory muscle use. GASTROINTESTINAL: Abdomen soft, non-tender, nondistended. MUSCULOSKELETAL: No cyanosis, or edema. A/P Assessment and Plan 41-year-old male admitted with MSSA spinal abscess and also mellitus. Pain control. Patient is ambulating with a walker. Amitriptyline added to attempt to better control his neuropathic pains. 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 Stop Percocet for pain control Continue OxyContin 40 mg by mouth every 12 hours Start Dilaudid 4 mg by mouth every 4 hours as needed for pain Follow cultures DC plan : poss DC tomorrow 07/19/16 after seen by ID specialist Dr Wadsworth Discussed with the patient, nurse, ID Dr Wadsworth. Dr Wadsworth will review today abx and place orders for abx at discharge. Case management ff. Patient has a wheeled walker in the room. Ariadna Sotomayor MD Jul 19, 2016 09:49
[2016-07-19 12:00] VITALS: BP 119/72; PULSE 104; RESP 16; TEMP 98.2; O2SAT 94
[2016-07-19] MEDS: VANCOMYCIN 1,000 MG/NS 250 ML IV SCH ×2 (12:15)
--- NOTE | 2016-07-21 17:08 | PQ ---
Physician Query Response Document PATIENT: RICHIE WHIPPLE : 1975 ADMIT DATE: 07/04/2016 1:03 AM DISCH DATE: 07/19/2016 5:12 PM RESPONDING PROVIDER #: [email or web address] QUERY TEXT: Clarification of Clinical Diagnostic Findings Please clarify documentation or clinical relevance for the clinical / diagnostic findings or whether those are insignificant or unable to be further specified. Please confirm or rule out diagnosis of Pu lmonary abscess. WAS PULMONARY ABSCESS: 1)PRESENT ON ADMISSION 2)PRESENT AFTER ADMISSION 3)PATIENT DID NOT HAVE PULMONARY ABSCESS 4)OTHER(PLEASE SPECIFY) If you have any additional questions/commesnt and/or concerns please call [employer]/Coding Hotline [email or web address] [phone] The patient's Clinical Indicators include: Dr SOTOMAYOR, your discharge summary documents (1) Pulmonary abscess This is only documentation of diagnosis of pulmonary abscess. I.D. 07-18-16"per NS, abscess did not communicate to thoracic cavity" Please review the question below and answer to the best of your ability to confirm diagnosis. THANK YOU Query created by: Paxton Nobles on 07/20/2016 7:29 AM RESPONSE TEXT: Patient doesn't have a pulmonary abscess. He was treated for epidural abscess and post surgical per surgeon patient does not have a pulmonary a bscess. Patient was treated for MRSA Pneumonia as well. Electronically signed by: Ariadna Sotomayor MD 07/21/2016 5:04 PM
== END 2016-07-19 17:12 | disposition home or self-care (01) | DRG 871 ==
LOC: NEPE 22:15 → NEDA 07-04 01:03 → NEPHCDU 07-04 05:13 → N04A 07-04 18:57
PROVIDERS: ADMIT Hospitalist; ATTEND Hospitalist
DX: A41.01 Sepsis due to Methicillin susceptible Staphylococcus aureus (principal); D65 Disseminated intravascular coagulation [defibrination syndrome]; N17.0 Acute kidney failure with tubular necrosis; M46.24 Osteomyelitis of vertebra, thoracic region; N17.9 Acute kidney failure, unspecified; E87.2 Acidosis; E87.1 Hypo-osmolality and hyponatremia; E46 Unspecified protein-calorie malnutrition; A31.9 Mycobacterial infection, unspecified; I11.0 Hypertensive heart disease with heart failure; I50.9 Heart failure, unspecified; G62.9 Polyneuropathy, unspecified; F41.9 Anxiety disorder, unspecified; B19.20 Unspecified viral hepatitis C without hepatic coma; F17.210 Nicotine dependence, cigarettes, uncomplicated; D63.8 Anemia in other chronic diseases classified elsewhere; F19.10 Other psychoactive substance abuse, uncomplicated; D70.9 Neutropenia, unspecified; E87.6 Hypokalemia; R19.7 Diarrhea, unspecified; E86.0 Dehydration; Z91.19 Patient's noncompliance with other medical treatment and regimen; M46.44 Discitis, unspecified, thoracic region
CPT/HCPCS: 36589; 71010; 72128; 76775; 76937; 80048; 80053; 80069; 80076; 80202; 80307; 81001; 82565; 83605; 83735; 85007; 85025; 85027; 85379; 85384; 85610; 85730; 86021; 86038; 86160; 87040; 87071; 87086; 87205; 94150; 96361; 96365; J0694; J0696; J2405; J3010; J3370; J7030; J7040; J7050

== ENCOUNTER 2016-12-20 06:10 | Inpatient (IN) | payer MEDICAID, OTHER ==
[~2016-12-20] VITALS: Ht 167.6 cm; Wt 55.7 kg
[2016-12-20] VITALS (12 sets, daily range): BP systolic 96–134; BP diastolic 61–83; PULSE 96–106; RESP 15–20; TEMP 98–98.5; O2SAT 92–98
[~2016-12-20 06:10] MED LIST: AMIT25TA9 PO; BIAX500T PO; DICL500 PO; DILA4TAB10 PO; DOCU1CAP39 PO; LACT PO; LEVA750T PO; METH500T3 PO; OXYC-103 PO; WALKER WHEELS/F1 MIS
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
[2016-12-20] MEDS ORDERED: ONDANSETRON HCL 4 MG/2 ML VIAL IV ONE (06:45)
[2016-12-20] MEDS ORDERED: SODIUM CHLOR 0.9% 1000 ML INJ 1,000 ML IV ONE (06:45)
[2016-12-20] MEDS ORDERED: HYDROmorphone HCL PF 0.5 MG/0.5 ML SYRINGE IV PUSH ONE (06:45)
[2016-12-20] MEDS ORDERED: VANCOMYCIN INJ 1,000 MG in SODIUM CHLOR 0.9% 250 ML INJ 250 ML IV ONE (06:45)
[2016-12-20] MEDS ORDERED: LACTULOSE SYRUP 20 GM/30 ML CUP PO PRN (07:15)
[2016-12-20] MEDS ORDERED: BISACODYL 10 MG SUPP RECTAL PRN (07:15)
[2016-12-20] MEDS ORDERED: MISCELLANEOUS NURSING INFORMATION XX SCH (07:15)
[2016-12-20] MEDS ORDERED: Vancomycin Consult Pharmacy 1 EA OTHER SCH (07:15)
[2016-12-20] MEDS ORDERED: CHLORHEXIDINE GLUCONATE 2 % 1 PACK (2 CLOTHS) TOP PRN (07:15)
[2016-12-20] MEDS ORDERED: ONDANSETRON HCL 4 MG/2 ML VIAL IV PUSH PRN (07:15)
[2016-12-20] MEDS ORDERED: ACETAMINOPHEN 325 MG TAB PO PRN (07:15)
[2016-12-20] MEDS ORDERED: MAGNESIUM HYDROXIDE SUSP 30 ML CUP PO PRN (07:15)
[2016-12-20] MEDS ORDERED: RESP: ALBUTEROL 2.5 MG/3 ML NEB (PRN) INH (07:15)
[2016-12-20] MEDS ORDERED: SENNOSIDES 8.6 MG TAB PO PRN (07:15)
--- NOTE | 2016-12-20 08:12 | RADRPT ---
EXAM DATE/TIME: 12/20/2016 07:45 [facility] COMPARISON: CHEST SINGLE AP, July 03, 2016, 23:01. INDICATIONS : Cough and congestion. Patient is coughing up phlegm. MEDICAL HISTORY : Hepatitic C. SURGICAL HISTORY : Back fusion. ENCOUNTER: Initial ACUITY: 1 day PAIN SCORE: 0/10 LOCATION: Bilateral chest FINDINGS: Portable AP view of the chest demonstrates a normal-sized cardiac silhouette. Lungs are underinflated . No effusion, consolidation, or pneumothorax is identified. There is atelectasis at the lung bases. Bones and soft tissues demonstrate no acute finding. CONCLUSION: Underinflation with atelectasis at the lung bases. Otherwise, no acute finding is appreciated. Roshan Galvez MD on December 20, 2016 at 8:09 Board Certified Radiologist. This report was verified electronically.
[2016-12-20] MEDS: MORPHINE SULFATE 4 MG/ML INJ IV PUSH PRN ×4 (09:00→21:43)
[2016-12-20] MEDS: SODIUM CHLOR 0.9% 1000 ML INJ 1,000 ML IV SCH ×2 (09:00→18:54)
[2016-12-20] MEDS ORDERED: oxyCODONE HCL 40 MG CONTROLLED RELEASE TAB PO SCH (09:00)
[2016-12-20] MEDS: SODIUM CHLORIDE 0.9% FLUSH 10 ML FLUSH IV FLUSH SCH ×2 (09:05→20:58)
[2016-12-20] MEDS: PANTOPRAZOLE SOD 40 MG DELAYED RELEASE TAB PO SCH (09:05)
[2016-12-20] MEDS ORDERED: VANCOMYCIN 500 MG/NS 100 ML IV ONE ×2 (10:00)
[2016-12-20] MEDS: DOCUSATE SODIUM 50 MG/SENNA 8.6 MG TAB PO SCH ×2 (10:32→20:57)
[2016-12-20] MEDS: CEFEPIME INJ 2,000 MG in SODIUM CHLORIDE 0.9% INJ 100 ML IV SCH ×2 (10:33→20:58)
--- NOTE | 2016-12-20 11:07 | HHI.HP ---
HPI Service Critical Care Medicine Primary Care Physician No Primary Care Physician Admission Diagnosis Diskitis, prevertebral abscesses of the spine, sepsis Diagnosis: (1) Spinal abscess Diagnosis: Principal (2) Gastroesophageal reflux disease Diagnosis: Secondary (3) Acute kidney injury Diagnosis: Principal (4) Thrombocytosis Diagnosis: Principal (5) Microcytic anemia Diagnosis: Secondary (6) Leukocytosis Diagnosis: Secondary (7) Hyperkalemia Diagnosis: Principal (8) Discitis Diagnosis: Principal (9) Renal failure Diagnosis: Principal (10) Intravenous drug abuse in remission Diagnosis: Secondary (11) HTN (hypertension) Diagnosis: Secondary (12) Osteomyelitis Diagnosis: Principal (13) Tobacco abuse Diagnosis: Principal (14) Pulmonary abscess Diagnosis: Principal Chief Complaint: Back and hip pain Travel History International Travel<30 Days: No Contact w/Intl Traveler <30 Da: No Traveled to Known Affected Are: No History of Present Illness This is a 41-year-old male. Date of admission 12/20/2016. 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 Patient presents to [facility] as a direct transfer from [facility] with the following history. Patient with six-day history of back and hip pain. Patient was noted to have a potassium 5.6, elevated white blood cell count, microcytic anemia and thrombocytosis. MRI of thoracic spine revealed pathologic fractures T5, 6 and 7. Discitis from T5/6 to T7/8. Prevertebral abscess from T4 through T10 9.5 cm craniocaudal. There is right extrapulmonic abscesses noted 2.4 x 1.7 cm in the bilateral abscesses goes posteriorly 2.5 x 2.7 x 2 cm as well. There is a large epidural phlegmon causing spinal stenosis. Patient received vancomycin and piperacillin/tazobactam at outside facility was accepted by Dr. Huitron for Dr. Pickard to evaluate and treat. Currently, patient has complained of pain. Patient has noted open area upper thoracic spine 3 x 3 cm with erythema. No pus visualized currently. Patient has received fentanyl for pain in route. Review of Systems Constitutional: COMPLAINS OF: Fever, Weight loss, DENIES: Weight gain Endocrine: DENIES: Polyuria Eyes: DENIES: Blurred vision Ears, nose, mouth, throat: DENIES: Tinnitus Respiratory: DENIES: Apneas, Shortness of breath Cardiovascular: COMPLAINS OF: Palpitations, DENIES: Chest pain Gastrointestinal: DENIES: Abdominal pain, Constipation, Diarrhea, Nausea, Vomiting Genitourinary: DENIES: Sexual dysfunction, Urgency Musculoskeletal: COMPLAINS OF: Joint pain, Muscle aches, Joint Swelling, Back pain, DENIES: Stiffness, Neck pain Integumentary: DENIES: Abnormal pigmentation Hematologic/lymphatic: DENIES: Bruising Immunologic/allergic: DENIES: Eczema Neurologic: DENIES: Abnormal gait, Headache Psychiatric: COMPLAINS OF: Anxiety, DENIES: Confusion Past Family Social History Allergies: Coded Allergies: aspirin (Unverified Allergy, Severe, 12/20/16) PATIENT STATES HE HAD A HOLE IN HIS HEART WHEN HE WAS BORN AND HE WAS TOLD NOT TO TAKE ASPIRIN. LONGTERM MAR STATES NO KNOWN ALLERGIES PATIENT DENIES ALLERGY TO ASPIRIN. 04/01/13 Past Medical History Hepatitis C Sinus tachycardia Hypertension History of IV drug use of opiates History of cocaine abuse THC use History of MSSA thoracic abscess History of pulmonary abscesses Past Surgical History History bilateral T5 through 10 laminectomy with posterolateral allograft 2012 Suprapubic catheter placement 2011 Left radial artery repair/APL tendon repair 2012 T8/9 transpedicular corpectomy/laminectomy with T 6-11 posterolateral fusion History of pulmonary abscesses drained at [facility] January 2016 T5/6 decompressive laminectomy with evacuation of epidural abscess T4/5 laminectomy with discectomy T3 sinus 6 posterior lateral fusion Bilateral T3/4 pedicle screw fixation Repeat T4/5 decompression with evacuation of paraspinal abscess Right hip ORIF Reported Medications Levaquin (Levofloxacin) 750 Mg Tab 750 Mg PO Q48H Dicloxacillin (Dicloxacillin Sodium) 500 Mg Cap 500 Mg PO QID Biaxin (Clarithromycin) 500 Mg Tab 500 Mg PO BID Dilaudid (Hydromorphone HCl) 4 Mg Tab 4 Mg PO Q8H PRN Oxycontin (Oxycodone HCl) 10 Mg Tab 40 Mg PO Q12HR Methocarbamol 500 Mg Tab 500 Mg PO Q8HR Acidophilus/l-Sporogenes (Lactobacillus Acidophilus) 1 Tab Tab 1 Tab PO TID Dok (Docusate Sodium) 100 Mg Cap 100 Mg PO Q12HR Amitriptyline (Amitriptyline HCl) 25 Mg Tab 25 Mg PO HS Walker with Front Wheels (Device) 1 Mis Mis 1 Ea .ROUTE DIRECTED Active Ordered Medications Reviewed in EMR Family History Father and microinfarction age 42. Social History Previous opioid IV drug abuse. Positive history of THC and cocaine abuse. 5 cigarettes daily. Quit alcohol 10 years ago. Physical Exam Vital Signs Vital Signs Date Time Temp Pulse Resp B/P (MAP) Pulse Ox O2 Delivery O2 Flow Rate FiO2 12/20/16 09:56 12/20/16 07:53 92 21 12/20/16 07:44 104 15 110/74 (86) 94 Room Air 12/20/16 07:43 94 Room Air 12/20/16 06:19 16 12/20/16 06:15 98.5 102 16 103/68 (80) 98 Physical Exam GENERAL: 41-year-old male, resting in bed in no acute distress SKIN: Warm and dry. Multiple tattoos bilateral upper extremities HEAD: Atraumatic. Normocephalic. EYES: Pupils equal and round around 3 mm bilaterally nonreactive. No scleral icterus. No injection or drainage. ENT: No nasal bleeding or discharge. Mucous membranes pink and moist. NECK: Trachea midline. No JVD. CARDIOVASCULAR: Tachycardia, RR. S1, S2 no S4. Do not appreciate murmur RESPIRATORY: Clear to auscultation. Breath sounds equal bilaterally. GASTROINTESTINAL: Abdomen soft, non-tender, nondistended. Hepatic and splenic margins not palpable. MUSCULOSKELETAL: Extremities without significant peripheral edema. Noted 3 x 3 open abscess/erythema with good granulation tissue over around T2/3 thoracic spine NEUROLOGICAL: Awake and alert. No obvious cranial nerve deficits. Motor grossly within normal limits. Five out of 5 muscle strength in the arms and legs. Normal speech. Laboratory Date/Time Source Procedure Growth Status 12/20/16 07:00 Blood Peripheral Aerobic Blood Culture Pending Received 12/20/16 07:00 Blood Peripheral Anaerobic Blood Culture Pending Received 12/20/16 07:00 Wound Back Gram Stain - Final Resulted 12/20/16 07:00 Wound Back Wound Culture Pending Resulted Imaging Last Impressions Chest X-Ray 12/20/16 0000 Signed Impressions: Service Date/Time: Tuesday, December 20, 2016 07:45 - CONCLUSION: Underinflation with atelectasis at the lung bases. Otherwise, no acute finding is appreciated. MD Tony Linda VTE Risk Assessment Caprini VTE Risk Assessment: Mod/High Risk (score >= 2) Caprini Risk Assessment Model Point Value = 1 Point Value = 2 Point Value = 3 Point Value = 5 Age 41-60 Minor surgery BMI > 25 kg/m2 Swollen legs Varicose veins or History of unexplained or recurrent spontaneous Oral contraceptives or hormone replacement Sepsis (< 1 month) Serious lung disease, including pneumonia (< 1 month) Abnormal pulmonary function Acute myocardial infarction Congestive heart failure (< 1 month) History of inflammatory bowel disease Medical patient at bed rest Age 61-74 Arthroscopic surgery Major open surgery (> 45 min) Laparoscopic surgery (> 45 min) Malignancy Confined to bed (> 72 hours) Immobilizing plaster cast Central venous access Age >= 75 History of VTE Family history of VTE Factor V Leiden Prothrombin [id number] Lupus anticoagulant Anticardiolipin antibodies Elevated serum homocysteine Heparin-induced thrombocytopenia Other congenital or acquired thrombophilia Stroke (< 1 month) Elective arthroplasty Hip, pelvis, or leg fracture Acute spinal cord injury (< 1 month) Prophylaxis Regimen Total Risk Factor Score Risk Level Prophylaxis Regimen 0-1 Low Early ambulation 2 Moderate Order ONE of the following: *Sequential Compression Device (SCD) *Heparin 5000 units SQ BID 3-4 Higher Order ONE of the following medications: *Heparin 5000 units SQ TID *Enoxaparin/Lovenox 40 mg SQ daily (WT < 150 kg, CrCl > 30 mL/min) *Enoxaparin/Lovenox 30 mg SQ daily (WT < 150 kg, CrCl > 10-29 mL/min) *Enoxaparin/Lovenox 30 mg SQ BID (WT < 150 kg, CrCl > 30 mL/min) AND/OR *Sequential Compression Device (SCD) 5 or more Highest Order ONE of the following medications: *Heparin 5000 units SQ TID (Preferred with Epidurals) *Enoxaparin/Lovenox 40 mg SQ daily (WT < 150 kg, CrCl > 30 mL/min) *Enoxaparin/Lovenox 30 mg SQ daily (WT < 150 kg, CrCl > 10-29 mL/min) *Enoxaparin/Lovenox 30 mg SQ BID (WT < 150 kg, CrCl > 30 mL/min) AND *Sequential Compression Device (SCD) Assessment and Plan Assessment and Plan Neuro/Psych: T5/6 through T7/8 discitis Pathologic fractures T5, 6 and 7. Paravertebral abscess T4 through 10 with extrapleural manifestations right-sided EtOH History of polysubstance abuse including cocaine and THC Acetaminophen for fever Hydrocodone/acetaminophen/morphine sulfate for pain management We'll place on OxyContin 20 no grams by mouth twice a day for pain management Previously OxyContin 40 mg twice a day with Dilaudid 4 mg every 4 hours when necessary breakthrough pain Currently on amitriptyline 25 mg a night for depression Thiamine, multivitamin and folate daily Neurosurgery/Dr. Pickard consulted CV: Sinus tachycardia 2-D echocardiogram 05/29 revealed EF 55-60%. No regional wall motion abnormality. Currently normal saline at 84 cc an hour. Resp: Tobaccoism Nasal cannula to maintain saturations greater than or equal to 92% Incentive spirometry while awake As needed albuterol aerosols Chest x-ray 12/20 revealed no acute findings GI: Clear liquid diet Pantoprazole 40 mg daily for GI prophylaxis Docusate sodium/senna 1 tablet twice daily for bowel regimen Follow-up liver function tests : History of suprapubic catheter Currently no acute issues Endo: Sliding-scale insulin if indicated to maintain euglycemia Renal: Acute kidney injury Monitor urine output Accurate I's and O's Currently on normal saline at 84 cc an hour Repeat labs in a.m. Heme: Leukocytosis Microcytic anemia Thrombocytosis Check iron studies/ferritin. Hemoccult stool Follow-up on coags. ID: Paravertebral abscess Currently on vancomycin/cefepime day #1 Blood cultures 2 pending Infectious disease consultation MSK: PT evaluate and treat FEN: Hyperkalemia Will repeat labs currently. Treat if indicated. Access - Utilize peripheral IV. Central line if indicated Prophylaxis - GI - pantoprazole - DVT - SCD/holding pharmacological prophylaxis in light of possible surgical intervention Level II admission Code Status Full code Discussed Condition With Patient. Dr. Bell/ED physician. Care plan discussed and all questions answered. Problem Qualifiers (1) Gastroesophageal reflux disease: Qualified Codes: K21.9 - Gastro-esophageal reflux disease without esophagitis (2) Leukocytosis: Qualified Codes: D72.829 - Elevated white blood cell count, unspecified (3) Discitis: Qualified Codes: M46.44 - Discitis, unspecified, thoracic region (4) Renal failure: Qualified Codes: N17.9 - Acute kidney failure, unspecified; N18.9 - Chronic kidney disease, unspecified (5) HTN (hypertension): Qualified Codes: I10 - Essential (primary) hypertension (6) Osteomyelitis: Qualified Codes: M86.8X0 - Other osteomyelitis, multiple sites (7) Pulmonary abscess: Qualified Codes: J85.2 - Abscess of lung without pneumonia Quang Mendoza MD Dec 20, 2016 11:07
[2016-12-20] MEDS ORDERED: THIAMINE HCL 100 MG TAB PO ONE (12:30)
[2016-12-20] MEDS ORDERED: GLUCAGON 1 MG/ML VIAL OTHER PRN (12:30)
[2016-12-20] MEDS ORDERED: DEXTROSE 50% IN WATER 50 ML VIAL(D50) IV PUSH PRN (12:30)
--- NOTE | 2016-12-20 12:51 | EKG ---
Date Performed: 12/20/2016 Time Performed: 07:57:48 PTAGE: 41 years EKG: SINUS TACHYCARDIA SEPTAL MYOCARDIAL INFARCTION POSSIBLE INFERIOR MYOCARDIAL INFARCTION ABNO RMAL ECG PREVIOUS TRACING : 02/01/2016 19.26 DOCTOR: Huseyin Herrera Interpretating Date/Time 12/20/2016 12:47:51
[2016-12-20 13:53] LABS: AUTOMATED NEUTROPHIL # 6.3 TH/MM3 (1.8-7.7); BASOPHIL # 0.1 TH/MM3 (0-0.2); BASOPHIL % 1.4 % (0.0-2.0); EOSINOPHIL # 0.2 TH/MM3 (0-0.4); EOSINOPHIL % 2.1 % (0.0-4.0); HEMATOCRIT 26.8 % (39.0-51.0); HEMO FLAGS DIFF FINAL; LYMPH % 16.5 % (9.0-44.0); LYMPHOCYTE # 1.4 TH/MM3 (1.0-4.8); MEAN CELL VOLUME 66.7 FL (80.0-100.0); MEAN CORPUSCULAR HEMOGLOBIN 22.1 PG (27.0-34.0); MEAN CORPUSCULAR HGB CONC 33.1 % (32.0-36.0); MONO % 6.2 % (0.0-8.0); NEUT % 73.8 % (16.0-70.0); PLATELET COUNT 462 TH/MM3 (150-450); RED BLOOD COUNT 4.01 MIL/MM3 (4.50-5.90); RED CELL DISTRIBUTION WIDTH 17.7 % (11.6-17.2); WHITE BLOOD COUNT 8.6 TH/MM3 (4.0-11.0)
[2016-12-20 13:56] LABS: APTT (PATIENT) 22.9 SEC (24.3-30.1); PROTHROMBIN TIME - PATIENT 11.4 SEC (9.8-11.6)
[2016-12-20 14:30] LABS: ALT (GPT) 26 U/L (12-78); AMYLASE 43 U/L (25-115); ANION GAP 9 MEQ/L (5-15); AST (GOT) 17 U/L (15-37); BICARBONATE 18.9 MEQ/L (21.0-32.0); BLOOD UREA NITROGEN 24 MG/DL (7-18); CHLORIDE 104 MEQ/L (98-107); GLOMERULAR FILTRATION RATE 90 ML/MIN (>89); MAGNESIUM 2.3 MG/DL (1.5-2.5); POTASSIUM 4.5 MEQ/L (3.5-5.1); SODIUM (NA) 132 MEQ/L (136-145)
[2016-12-20 14:39] LABS: ALKALINE PHOSPHATASE 94 U/L (45-117); CREATINE KINASE 39 U/L (39-308); TOTAL BILIRUBIN ADULT 0.4 MG/DL (0.2-1.0)
[2016-12-20] MEDS: METHOCARBAMOL 500 MG TAB PO SCH ×2 (16:03→20:57)
[2016-12-20] MEDS: INSULIN NovoLIN REGULAR SUPPLEMENTAL SCALE SQ SCH ×2 (16:13→19:52)
--- NOTE | 2016-12-20 18:13 | PD.WCN.NOT ---
Wound Consult Description: Received consult from Doctor Mendoza for wound management of back Communicated with: BEN Grier and Doctor Mendoza Recommendation: Please cleanse wound over thoracic spine with normal saline and pat dry. Loosely pack wound with Calcium alginate dressing and cover with bordered gauze. Please apply skin prep before applying adhesives to skin.change dressing daily or PRN if saturated or dislodged, until seen by neurosurgery. Additional Information: Patient seen on 5th floor [facility] for wound management of back at 1645. Patient able to position himself to L side with no assistance. Student nurse at the bedside for assistance. Removed gauze pad and transparent dressing in place to reveal wound. Wound measures 1 cm x 1.1cm x 0.8cm. Undermining is present from 4 to 8 o'clock deepest at 12 o'clock measuring >4.3cm . Wound has moderate serous drainage without odor. Wound culture is negative for organisms and is showing Rare WBC. Periwound presents with scar tissue circumferentially. Cleansed wound with normal saline and loosely packed wound with Calcium Alginate (Maxorb II), to absorb drainage and fill in space. Skin prep was then applied to periwound before applying bordered gauze dressing over wound. Patient is comfortable laying on L side. Patient has neurosurgery consult and infectious disease consult pending. Beckie Parham [facility] Dec 20, 2016 18:13
[2016-12-20] MEDS: ACETAMINOPHEN/HYDROcodone 325 MG/5 MG TAB PO PRN ×2 (18:45→23:02)
--- NOTE | 2016-12-20 19:27 | PD.ID.CON ---
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 Pickard, and he had debridement, and drainage of the epidural abscess. 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 He denies compliance He was discharged on multi drug abx Rx for his NTM infection but stated that he was non complant 2/2 not having a PCP He presented 2/2 to R hip pain (h/o ipsilateral ORIF following fall) and was noted to have a draining wound on his back Patient presents to [facility] as a direct transfer from [facility] . MRI of thoracic spine revealed pathologic fractures T5, 6 and 7. Discitis from T5/6 to T7/8. Prevertebral abscess from T4 through T10 9.5 cm craniocaudal. There is right extrapulmonic abscesses noted 2.4 x 1.7 cm in the bilateral abscesses goes posteriorly 2.5 x 2.7 x 2 cm as well. There \was a large epidural phlegmon causing spinal stenosis. Patient received vancomycin and piperacillin/tazobactam at outside facility was accepted by Dr. Huitron for Dr. Pickard to evaluate and treat. He was started on broad spectrum abx and wound and blood clx were done Pt presented afebrile with normal WBC Review of Systems Except as stated in HPI: all other systems reviewed are Neg Past Family Social History Allergies: Coded Allergies: aspirin (Unverified Allergy, Severe, 12/20/16) PATIENT STATES HE HAD A HOLE IN HIS HEART WHEN HE WAS BORN AND HE WAS TOLD NOT TO TAKE ASPIRIN. [facility] STATES NO KNOWN ALLERGIES PATIENT DENIES ALLERGY TO ASPIRIN. 04/01/13 Past Medical History Osteomyelitis of the spine in 2011 due to MSSA Osteomyelitis of the thoracic spine in 2013 treated, culture had MSSA, had removal of the hardware at that time Episode of M abscesses and Pseudomonas sepsis felt to be due to PICC line infection back in 2013 Episode of back abscess again in January 2016, treated at [facility] had drainage, and a long course of IV antibiotics Known IV drug use Past Surgical History Past Surgical History History of laminectomy with fusion of the thoracic spine 2011 History of decompressive laminectomy discectomy and T3 T6 fusion with autograft in March 2013 Removal of thoracic hardware and evacuation of a deep thoracic wound abscess in September 2013 Active Ordered Medications Medications where reviewed in EMR Antibiotics Include: cefepime vanco Family History reviewed non contributory Social History Patient smokes about 5-6 cigarettes per day Denies alcohol abuse Known IVDU Physical Exam Vital Signs Vital Signs Date Time Temp Pulse Resp B/P (MAP) Pulse Ox O2 Delivery O2 Flow Rate FiO2 12/20/16 18:49 18 12/20/16 18:00 103 12/20/16 16:00 96 12/20/16 16:00 98.4 103 18 134/81 (98) 95 12/20/16 14:00 102 12/20/16 12:00 98.0 102 20 96/64 (75) 95 12/20/16 12:00 102 12/20/16 10:00 102 12/20/16 09:56 12/20/16 08:00 98.1 106 18 124/83 (97) 95 12/20/16 08:00 102 12/20/16 07:53 92 21 12/20/16 07:44 104 15 110/74 (86) 94 Room Air 12/20/16 07:43 94 Room Air 12/20/16 06:19 16 12/20/16 06:15 98.5 102 16 103/68 (80) 98 Physical Exam CONSTITUTIONAL/GENERAL: This is an undernourished chronically ill appearing patient, in no apparent distress. TUBES/LINES/DRAINS: SKIN: No jaundice, rashes, or lesions. Skin temperature appropriate. Not diaphoretic. HEAD: Atraumatic. Normocephalic. EYES: Pupils equal and round and reactive. Extraocular motions intact. No scleral icterus. No injection or drainage. Fundi not examined. ENT: Hearing grossly normal. Nose without bleeding or purulent drainage. Throat without visible erythema, exudates, masses, or lesions. NECK: Trachea midline. Supple, nontender. No palpable thyroid enlargement or nodularity. CARDIOVASCULAR: Regular rate and rhythm without murmurs, gallops, or rubs. No JVD. Peripheral pulses symmetric. RESPIRATORY/CHEST: Symmetric, unlabored respirations. Clear to auscultation. Breath sounds equal bilaterally. No wheezes, rales, or rhonchi. GASTROINTESTINAL: Abdomen soft, non-tender, nondistended. No hepato-splenomegaly , or palpable masses. No guarding. Bowel sounds present. GENITOURINARY: Without palpable bladder distension. MUSCULOSKELETAL: Extremities without clubbing, cyanosis, or edema. Muscle bulk wastin BLE No calf tenderness. No mottling or clubbing. \Well healed incision over R hip, no edema, no erythema + mildly tender LYMPHATICS: No palpable cervical axailla or supraclavicular adenopathy. BACK: Kyphotic deformity of thoraci spine Open wound in superi or aspect of incision with odorless seropurulent d/c NEUROLOGICAL: Awake and alert. Motor and sensory grossly within normal limits. Follows commands. Clear speech . Moves all extremities. PSYCHIATRIC: Calm. no apparent hallucinations or other psychotic thought process. Laboratory Laboratory Tests Test 12/20/16 10:00 12/20/16 13:00 12/20/16 13:14 Nasal Screen MRSA (PCR) MRSA NOT DETECTED White Blood Count 8.6 Red Blood Count 4.01 Hemoglobin 8.9 Hematocrit 26.8 Mean Corpuscular Volume 66.7 Mean Corpuscular Hemoglobin 22.1 Mean Corpuscular Hemoglobin Concent 33.1 Red Cell Distribution Width 17.7 Platelet Count 462 Mean Platelet Volume 8.3 Neutrophils (%) (Auto) 73.8 Lymphocytes (%) (Auto) 16.5 Monocytes (%) (Auto) 6.2 Eosinophils (%) (Auto) 2.1 Basophils (%) (Auto) 1.4 Neutrophils # (Auto) 6.3 Lymphocytes # (Auto) 1.4 Monocytes # (Auto) 0.5 Eosinophils # (Auto) 0.2 Basophils # (Auto) 0.1 CBC Comment DIFF FINAL Differential Comment Hematology Comments Prothrombin Time 11.4 Prothromb Time International Ratio 1.0 Activated Partial Thromboplast Time 22.9 Fibrinogen 505 Blood Urea Nitrogen 24 Creatinine 0.92 Random Glucose 73 Total Protein 7.9 Albumin 1.7 Calcium Level 8.4 Phosphorus Level 4.1 Magnesium Level 2.3 Alkaline Phosphatase 94 Aspartate Amino Transf (AST/SGOT) 17 Alanine Aminotransferase (ALT/SGPT) 26 Total Bilirubin 0.4 Sodium Level 132 Potassium Level 4.5 Chloride Level 104 Carbon Dioxide Level 18.9 Anion Gap 9 Estimat Glomerular Filtration Rate 90 Lactic Acid Level 0.9 Ammonia 30 Total Creatine Kinase 39 Troponin I LESS THAN 0.02 Amylase Level 43 Lipase 63 Thyroid Stimulating Hormone 3rd Gen 2.040 Date/Time Source Procedure Growth Status 12/20/16 07:00 Blood Peripheral Aerobic Blood Culture Pending Received 12/20/16 07:00 Blood Peripheral Anaerobic Blood Culture Pending Received 12/20/16 07:00 Wound Back Gram Stain - Final Resulted 12/20/16 07:00 Wound Back Wound Culture Pending Resulted Result Diagram: 12/20/16 1300 12/20/16 1314 Imaging Last Impressions Chest X-Ray 12/20/16 0000 Signed Impressions: Service Date/Time: Tuesday, December 20, 2016 07:45 - CONCLUSION: Underinflation with atelectasis at the lung bases. Otherwise, no acute finding is appreciated. Roshan Galvez MD Assessment and Plan Assessment and Plan Chronic vertebral osteo, recurring epidural abscess, M. abscess, MSSA pathologic fractures T5, 6 and 7. Discitis from T5/6 to T7/8. Prevertebral abscess from T4 through T10 9.5 cm craniocaudal. Right extrapulmonic abscesses noted 2.4 x 1.7 cm in the bilateral abscesses goes posteriorly 2.5 x 2.7 x 2 cm as well. Large epidural phlegmon causing spinal stenosis R hip pain with h/o ORIF Rec'sd: cont cefepime, vancomycin send AFB clx after surg cultures are obtained will adjust Rx based obn previous M. abscess clx/ S Britney Cruz MD Dec 20, 2016 19:26
[2016-12-20] MEDS: AMITRIPTYLINE HCL 25 MG TAB PO SCH (20:57)
[2016-12-20] MEDS: oxyCODONE HCL 20 MG CONTROLLED RELEASE TAB PO SCH (20:57)
[2016-12-20] MEDS: CHLORHEXIDINE GLUCONATE 2 % 1 PACK (2 CLOTHS) TOP SCH (20:58)
[2016-12-21] VITALS (20 sets, daily range): BP systolic 94–140; BP diastolic 68–87; PULSE 85–122; RESP 14–25; TEMP 98–98.8; O2SAT 95–99
[2016-12-21] MEDS: MORPHINE SULFATE 4 MG/ML INJ IV PUSH PRN ×5 (01:04→13:19)
[2016-12-21 03:53] LABS: HEMATOCRIT 25.2 % (39.0-51.0); MEAN CELL VOLUME 67.1 FL (80.0-100.0); MEAN CORPUSCULAR HEMOGLOBIN 22.7 PG (27.0-34.0); MEAN CORPUSCULAR HGB CONC 33.9 % (32.0-36.0); PLATELET COUNT 431 TH/MM3 (150-450); RED BLOOD COUNT 3.76 MIL/MM3 (4.50-5.90); RED CELL DISTRIBUTION WIDTH 17.5 % (11.6-17.2); WHITE BLOOD COUNT 5.6 TH/MM3 (4.0-11.0)
[2016-12-21 03:55] LABS: HEMO FLAGS AUTO DIFF
[2016-12-21] MEDS: SODIUM CHLOR 0.9% 1000 ML INJ 1,000 ML IV SCH (04:00)
[2016-12-21] MEDS: METHOCARBAMOL 500 MG TAB PO SCH ×3 (04:02→20:32)
[2016-12-21 04:05] LABS: APTT (PATIENT) 26.1 SEC (24.3-30.1); PROTHROMBIN TIME - PATIENT 11.6 SEC (9.8-11.6)
[2016-12-21 04:29] LABS: ALT (GPT) 21 U/L (12-78); ANION GAP 6 MEQ/L (5-15); AST (GOT) 13 U/L (15-37); BANDS 10 % (0-6); BICARBONATE 25.9 MEQ/L (21.0-32.0); BLOOD UREA NITROGEN 18 MG/DL (7-18); CHLORIDE 105 MEQ/L (98-107); EOSINOPHILS 1 % (0-4); GLOMERULAR FILTRATION RATE 107 ML/MIN (>89); MAGNESIUM 2.2 MG/DL (1.5-2.5); NEUTROPHIL # MANUAL DIFF 3.8 TH/MM3 (1.8-7.7); POLYS (SEG NEUTROPHILS) 57 % (16-70); POTASSIUM 4.1 MEQ/L (3.5-5.1); SCAN/DIFF FINAL DIFF MANUAL; SODIUM (NA) 137 MEQ/L (136-145); TOXIC GRANULATION 1+ (NORMAL); WBC DIFF SAMPLE 100
[2016-12-21 04:30] LABS: PLATELET ESTIMATE SMEAR HIGH (NORMAL); PLATELET MORPHOLOGY ENLARGED (NORMAL)
[2016-12-21 04:31] LABS: ALKALINE PHOSPHATASE 86 U/L (45-117); TOTAL BILIRUBIN ADULT 0.2 MG/DL (0.2-1.0)
[2016-12-21] MEDS ORDERED: VANCOMYCIN INJ 1,500 MG in SODIUM CHLORID 0.9% 500 ML INJ 500 ML IV SCH (06:00)
[2016-12-21] MEDS: DOCUSATE SODIUM 50 MG/SENNA 8.6 MG TAB PO SCH ×2 (07:41→20:33)
[2016-12-21] MEDS: FOLIC ACID 1 MG TAB PO SCH (07:41)
[2016-12-21] MEDS: PANTOPRAZOLE SOD 40 MG DELAYED RELEASE TAB PO SCH (07:42)
[2016-12-21] MEDS: MULTIVITAMIN TAB PO SCH (07:42)
[2016-12-21] MEDS: CEFEPIME INJ 2,000 MG in SODIUM CHLORIDE 0.9% INJ 100 ML IV SCH ×2 (07:42→20:32)
[2016-12-21] MEDS: THIAMINE HCL 100 MG TAB PO SCH (07:42)
[2016-12-21] MEDS: SODIUM CHLORIDE 0.9% FLUSH 10 ML FLUSH IV FLUSH PRN (07:42)
[2016-12-21] MEDS: oxyCODONE HCL 20 MG CONTROLLED RELEASE TAB PO SCH (07:42)
[2016-12-21] MEDS: SODIUM CHLORIDE 0.9% FLUSH 10 ML FLUSH IV FLUSH SCH ×2 (07:43→20:32)
[2016-12-21] MEDS: INSULIN NovoLIN REGULAR SUPPLEMENTAL SCALE SQ SCH ×4 (07:43→20:42)
--- NOTE | 2016-12-21 08:46 | PD.CONS ---
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 He was most recently seen in May 2016 when he presented with a thoracic osteomyelitis-discitis with paraspinous abscess and underwent a T4-5 laminectomy, evacuation abscess. Cultures grew mycobacterium abscessus, for which he was placed on IV antibiotic treatment initially . He returned in June 2016 with persistent/recurrent infection, having been noncompliant with the IV treatment. He was placed on oral medication including Biaxine, which he was also noncompliant with. He states that he was feeling relatively well until a week ago when he developed right hip pain. He has had a previous ORIF of the right hip but states that it usually does not bother him. 2 days ago he noted a cutaneous infection in the mid thoracic region and went to [facility] emergency room for evaluation. He states that he was released and told to come to [place] for further treatment. He has noted drainage from the infection site in the past 1-2 days. He denies any fevers or chills. He complains of a productive cough or couple of weeks. No definite bowel or bladder dysfunction. He states that he has been able ambulate well without any definite numbness in the extremities except for the right hip. Review of Systems Constitutional: COMPLAINS OF: Fatigue, DENIES: Fever Eyes: DENIES: Blurred vision, Diplopia Ears, nose, mouth, throat: DENIES: Hearing loss, Vertigo Cardiovascular: DENIES: Chest pain, Palpitations Gastrointestinal: DENIES: Nausea Musculoskeletal: COMPLAINS OF: Joint pain, Muscle aches, Back pain Hematologic/lymphatic: DENIES: Bruising Neurologic: DENIES: Abnormal gait, Headache Psychiatric: DENIES: Confusion Past Family Social History Allergies: Coded Allergies: aspirin (Unverified Allergy, Severe, 12/20/16) PATIENT STATES HE HAD A HOLE IN HIS HEART WHEN HE WAS BORN AND HE WAS TOLD NOT TO TAKE ASPIRIN. [facility] STATES NO KNOWN ALLERGIES PATIENT DENIES ALLERGY TO ASPIRIN. 04/01/13 Past Medical History History of multiple spinal infections-osteomyelitis/discitis No significant cardiac, pulmonary disease, gastrointestinal disease, hypertension, diabetes Past Surgical History Multiple spinal surgeries for infection including previous laminectomy and fusion in 2011 and 2013 with subsequent removal of hardware due to recurrent abscess in late 2013. Spinal abscess drainage 2016 C4 5 laminectomy abscess drainage 2017 ORIF right hip fracture Reported Medications Reported Meds & Active Scripts Active Dicloxacillin (Dicloxacillin Sodium) 500 Mg Cap 500 Mg PO QID Biaxin (Clarithromycin) 500 Mg Tab 500 Mg PO BID Dilaudid (Hydromorphone HCl) 4 Mg Tab 4 Mg PO Q8H PRN Oxycontin (Oxycodone HCl) 10 Mg Tab 40 Mg PO Q12HR Methocarbamol 500 Mg Tab 500 Mg PO Q8HR Acidophilus/l-Sporogenes (Lactobacillus Acidophilus) 1 Tab Tab 1 Tab PO TID Dok (Docusate Sodium) 100 Mg Cap 100 Mg PO Q12HR Amitriptyline (Amitriptyline HCl) 25 Mg Tab 25 Mg PO HS Walker with Front Wheels (Device) 1 Mis Mis 1 Ea .ROUTE DIRECTED Family History No history of CVA cardiac pulmonary disease diabetes, cancer in the family Social History Long history of IV drug abuse. Smokes half-pack cigarettes a day Denies significant alcohol use Physical Exam Vital Signs Vital Signs Date Time Temp Pulse Resp B/P (MAP) Pulse Ox O2 Delivery O2 Flow Rate FiO2 12/21/16 08:00 98.0 95 19 116/77 (90) 97 12/21/16 07:00 94 23 140/87 (104) 99 12/21/16 06:00 85 12/21/16 04:00 98.8 100 17 112/78 (89) 99 12/21/16 04:00 100 12/21/16 02:00 98 12/21/16 00:00 98.2 100 14 105/69 (81) 96 12/21/16 00:00 100 12/20/16 22:00 97 12/20/16 20:00 97 12/20/16 20:00 98.0 97 19 99/61 (74) 97 12/20/16 18:49 18 12/20/16 18:00 103 12/20/16 16:00 96 12/20/16 16:00 98.4 103 18 134/81 (98) 95 12/20/16 14:00 102 12/20/16 12:00 98.0 102 20 96/64 (75) 95 12/20/16 12:00 102 12/20/16 10:00 102 12/20/16 09:56 Physical Exam GENERAL: Thin somewhat cachectic appearing male SKIN: Multiple scattered skin lesions, areas of ecchymosis. Approximately 3 x 4 cm area of thinning of the subcutaneous tissue at the mid to upper midline thoracic region with an approximately 10-12 mm area of previous wound dehiscence. HEAD: Atraumatic. Normocephalic. No temporal or scalp tenderness. EYES: Pupils equal round and reactive. Extraocular motions intact. No scleral icterus. No injection or drainage. ENT: Nose without bleeding, purulent drainage or septal hematoma. Throat without erythema, tonsillar hypertrophy or exudate. Uvula midline. Airway patent. NECK: Trachea midline. No JVD or lymphadenopathy. Supple, nontender, no meningeal signs. CARDIOVASCULAR: Regular rate and rhythm without murmurs, gallops, or rubs. RESPIRATORY: Clear to auscultation. Breath sounds equal bilaterally. No wheezes , rales, or rhonchi. GASTROINTESTINAL: Abdomen soft, non-tender, nondistended. No hepato-splenomegaly , or palpable masses. No guarding. MUSCULOSKELETAL: Moderate tenderness right hip. No significant pain with hip range of motion. No significant extremity edema. Dorsalis pedis pulse 2+ bilateral NEUROLOGICAL: Awake and alert Oriented X 3 Speech is clear Conversant and appropriate Follow simple commands well Answers questions appropriately Reasonable judgment and insight Recent and remote memory are intact No evidence of anxiety or depression Pupils are equal and reactive to accommodation. Extra-ocular movements, visual brown to confrontation, facial motor, bilateral shoulder shrug are all intact. Sensation is intact to light touch in all extremities Strength normal major flexion and extension groups all extremities . Strength is intact in bilateral hand intrinsic musculature Taylor's absent bilaterally No ankle clonus Plantar responses absent bilateral Fine motor movements intact upper extremities Laboratory Laboratory Tests Test 12/20/16 10:00 12/20/16 13:00 12/20/16 13:14 12/21/16 03:29 Nasal Screen MRSA (PCR) MRSA NOT DETECTED White Blood Count 8.6 5.6 Red Blood Count 4.01 3.76 Hemoglobin 8.9 8.5 Hematocrit 26.8 25.2 Mean Corpuscular Volume 66.7 67.1 Mean Corpuscular Hemoglobin 22.1 22.7 Mean Corpuscular Hemoglobin Concent 33.1 33.9 Red Cell Distribution Width 17.7 17.5 Platelet Count 462 431 Mean Platelet Volume 8.3 8.2 Neutrophils (%) (Auto) 73.8 Lymphocytes (%) (Auto) 16.5 Monocytes (%) (Auto) 6.2 Eosinophils (%) (Auto) 2.1 Basophils (%) (Auto) 1.4 Neutrophils # (Auto) 6.3 Lymphocytes # (Auto) 1.4 Monocytes # (Auto) 0.5 Eosinophils # (Auto) 0.2 Basophils # (Auto) 0.1 CBC Comment DIFF FINAL AUTO DIFF Differential Comment FINAL DIFF MANUAL Hematology Comments Prothrombin Time 11.4 11.6 Prothromb Time International Ratio 1.0 1.0 Activated Partial Thromboplast Time 22.9 26.1 Fibrinogen 505 Blood Urea Nitrogen 24 18 Creatinine 0.92 0.79 Random Glucose 73 79 Total Protein 7.9 7.4 Albumin 1.7 1.7 Calcium Level 8.4 8.1 Phosphorus Level 4.1 3.3 Magnesium Level 2.3 2.2 Alkaline Phosphatase 94 86 Aspartate Amino Transf (AST/SGOT) 17 13 Alanine Aminotransferase (ALT/SGPT) 26 21 Total Bilirubin 0.4 0.2 Sodium Level 132 137 Potassium Level 4.5 4.1 Chloride Level 104 105 Carbon Dioxide Level 18.9 25.9 Anion Gap 9 6 Estimat Glomerular Filtration Rate 90 107 Lactic Acid Level 0.9 0.7 Ammonia 30 Total Creatine Kinase 39 Troponin I LESS THAN 0.02 Amylase Level 43 Lipase 63 Thyroid Stimulating Hormone 3rd Gen 2.040 Differential Total Cells Counted 100 Neutrophils % (Manual) 57 Band Neutrophils % 10 Lymphocytes % 20 Monocytes % 12 Eosinophils % 1 Neutrophils # (Manual) 3.8 Toxic Granulation 1+ Platelet Estimate HIGH Platelet Morphology Comment ENLARGED Date/Time Source Procedure Growth Status 12/20/16 07:00 Blood Peripheral Aerobic Blood Culture Pending Received 12/20/16 07:00 Blood Peripheral Anaerobic Blood Culture Pending Received 12/20/16 07:00 Wound Back Gram Stain - Final Resulted 12/20/16 07:00 Wound Back Wound Culture Pending Resulted Result Diagram: 12/21/16 0329 12/21/16 0329 Imaging 12/19/2016 MRI thoracic and lumbar spine [facility] images are reviewed and discussed with radiology today. The study reveals chronic T5-6-7 fractures with T4-5-6 discitis and paraspinous inflammation-abscess with extension towards the right lung. Findings are relatively stable compared to previous imaging studies from May and June 2016, however there is now a subcutaneous fluid collection present at the T4-6 level. Assessment and Plan Assessment and Plan Impression: 1. Persistent T4-5-6 level discitis-osteomyelitis, paraspinous abscess with new area of subcutaneous abscess and adjacent wound dehiscence. Plan: Findings were discussed with the patient Findings were discussed at length with radiology. Imaging findings are relatively stable from previous studies in May and June 2016, although it is evident that the patient does have an area of active abscess and wound drainage which has developed in the thoracic region days. There is not a specific area of thoracic epidural abscess that would require drainage. He will undergo a CT-guided biopsy and aspiration of the thoracic disc space and paraspinous region with possible aspiration of subcutaneous fluid collection and paraspinous abscess. Infectious disease is following the patient No evidence of any new spinal instability. He may continue to mobilize out of bed without a brace. Activity precautions were discussed with the patient. Jeffry Pickard MD Dec 21, 2016 08:46
[2016-12-21] MEDS ORDERED: LIDOCAINE 1%/EPINEPHrine 1:100,000 SOLN 20 ML VIAL ONE (11:35)
[2016-12-21] MEDS ORDERED: MIDAZOLAM HCL 2 MG/2 ML VIAL ONE (11:40)
--- NOTE | 2016-12-21 12:53 | PD.RAD ---
Post CT Procedure Prog Note Pre Procedure Diagnosis: (1) Paraspinal abscess Post Procedure Diagnosis: (1) Paraspinal abscess Procedure Date: Dec 21, 2016 Supervising Radiologist: Roshan Galvez Estimated blood loss: minimal Anesthesia: Conscious Sedation Plan of Activity Patient to Unit: Critical Care Patient Condition: Fair See PACS Report for procedural detail/treatment Drainage Procedure Procedure 1 Imaging Guidance: CT Side: Bilateral Procedure Type: Aspiration Fluid Removal (CCs): 2 Fluid Description: Red Findings: 2 cc of foul smelling red fluid. Plan return to floor for monitoring. Roshan Galvez MD Dec 21, 2016 12:53
--- NOTE | 2016-12-21 13:16 | HHI.CCPN ---
Subjective Remarks/Hospital Course This is a 41-year-old male. Date of admission 12/20/2016. 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 Patient presents to [facility] as a direct transfer from [facility] with the following history. Patient with six-day history of back and hip pain. Patient was noted to have a potassium 5.6, elevated white blood cell count, microcytic anemia and thrombocytosis. MRI of thoracic spine revealed pathologic fractures T5, 6 and 7. Discitis from T5/6 to T7/8. Prevertebral abscess from T4 through T10 9.5 cm craniocaudal. There is right extrapulmonic abscesses noted 2.4 x 1.7 cm in the bilateral abscesses goes posteriorly 2.5 x 2.7 x 2 cm as well. There is a large epidural phlegmon causing spinal stenosis. Patient received vancomycin and piperacillin/tazobactam at outside facility was accepted by Dr. Huitron for Dr. Pickard to evaluate and treat. Currently, patient has complained of pain. Patient has noted open area upper thoracic spine 3 x 3 cm with erythema. No pus visualized currently. Patient has received fentanyl for pain in route. Subjective 12/21: Resting In Bed in No Acute Distress. Complaining of Pain. For CT for Biopsy/Drainage of Abscess. Afebrile. Objective Vital Signs Date Time Temp Pulse Resp B/P (MAP) Pulse Ox O2 Delivery O2 Flow Rate FiO2 12/21/16 11:04 105 12/21/16 08:00 98.0 19 116/77 (90) 97 12/20/16 07:53 21 12/20/16 07:44 Room Air Intake and Output 12/21/16 12/21/16 12/22/16 08:00 16:00 00:00 Intake Total 1550 ml 500 ml Output Total 1500 ml Balance 50 ml 500 ml Result Diagram: 12/21/16 0329 12/21/16 0329 Imaging Last Impressions Chest X-Ray 12/20/16 0000 Signed Impressions: Service Date/Time: Sunday, December 20, 2016 07:45 - CONCLUSION: Underinflation with atelectasis at the lung bases. Otherwise, no acute finding is appreciated. Roshan Galvez MD Objective Remarks GENERAL: 41-year-old male, resting in bed in no acute distress SKIN: Warm and dry. Multiple tattoos bilateral upper extremities HEAD: Atraumatic. Normocephalic. EYES: Pupils equal and round around 3 mm bilaterally nonreactive. No scleral icterus. No injection or drainage. ENT: No nasal bleeding or discharge. Mucous membranes pink and moist. NECK: Trachea midline. No JVD. CARDIOVASCULAR: Tachycardia, RR. S1, S2 no S4. Do not appreciate murmur RESPIRATORY: Clear to auscultation. Breath sounds equal bilaterally. GASTROINTESTINAL: Abdomen soft, non-tender, nondistended. Hepatic and splenic margins not palpable. MUSCULOSKELETAL: Extremities without significant peripheral edema. Noted 3 x 3 open abscess/erythema with good granulation tissue over around T2/3 thoracic spine NEUROLOGICAL: Awake and alert. No obvious cranial nerve deficits. Motor grossly within normal limits. Five out of 5 muscle strength in the arms and legs. Normal speech. A/P Assessment and Plan Neuro/Psych: T5/6 through T7/8 discitis Pathologic fractures T5, 6 and 7. Paravertebral abscess T4 through 10 with extrapleural manifestations right-sided EtOH History of polysubstance abuse including cocaine and THC Acetaminophen for fever Hydrocodone/acetaminophen/morphine sulfate for pain management We'll place on OxyContin 20 milligrams by mouth twice a day for pain management Previously OxyContin 40 mg twice a day with Dilaudid 4 mg every 4 hours when necessary breakthrough pain Currently on amitriptyline 25 mg a night for depression Thiamine, multivitamin and folate daily Neurosurgery/Dr. Pickard consulted CV: Sinus tachycardia 2-D echocardiogram 05/29 revealed EF 55-60%. No regional wall motion abnormality. Currently normal saline at 84 cc an hour. Resp: Tobaccoism Nasal cannula to maintain saturations greater than or equal to 92% Incentive spirometry while awake As needed albuterol aerosols Chest x-ray 12/20 revealed no acute findings GI: Regular diet Pantoprazole 40 mg daily for GI prophylaxis Docusate sodium/senna 1 tablet twice daily for bowel regimen Follow-up liver function tests : History of suprapubic catheter Currently no acute issues Endo: Sliding-scale insulin if indicated to maintain euglycemia Renal: Acute kidney injury - resolved Monitor urine output Accurate I's and O's Currently on normal saline at 84 cc an hour Repeat labs in a.m. Heme: Microcytic anemia Check iron studies/ferritin. Peripheral smear Hemoccult stool Follow-up CBC in a.m. ID: Paravertebral abscess Currently on vancomycin/cefepime day #2 12/20 - Blood cultures 2 no growth. Wound culture with staph aureus Infectious disease consultation appreciated with Dr. Cruz. Awaiting follow- up Mycobacterium abscesses cultures MSK: PT evaluate and treat FEN: Will repeat labs currently. Treat if indicated. Access - Utilize peripheral IV. Central line if indicated Prophylaxis - GI - pantoprazole - DVT - SCD/holding pharmacological prophylaxis in light of possible surgical intervention Level II follow-up. Stable from critical care medicine standpoint.. Assign care to hospitalist in a.m. 12/22. Okay to transfer to neuro floor when okay with neurosurgery Quang Mendoza MD Dec 21, 2016 13:16
[2016-12-21] MEDS ORDERED: HYDROmorphone HCL PF 0.5 MG/0.5 ML SYRINGE IV PUSH PRN (14:00)
[2016-12-21] MEDS ORDERED: IOHEXOL 350 MG/ML 10 ML VIAL (for RAD DIAG) IVCONTRAST ONE (14:14)
[2016-12-21 15:01] LABS: FERRITIN 193 NG/ML (26-388)
[2016-12-21 15:06] LABS: TRANSFERRIN IRON PROFILE 221 MG/DL (200-360)
--- NOTE | 2016-12-21 15:24 | RADRPT ---
EXAM DATE/TIME: 12/21/2016 11:52 [facility] COMPARISON: CT THORACIC SPINE W/O CONTRAST, July 07, 2016, 18:47. CT THORAX W CONTRAST, May 24, 2016, 10:21. INDICATIONS : Paraspinal abscess. IV CONTRAST: 67 cc Omnipaque 350 (iohexol) IV RADIATION DOSE: 9.05 CTDIvol (mGy) MEDICAL HISTORY : Cardiovascular disease. Hepatitis C. Osteomyelitis. SURGICAL HISTORY : Spinal surgery (t-spine). ENCOUNTER: Initial ACUITY: 1 day PAIN SCALE: 5/10 LOCATION: mid-back. TECHNIQUE: Volumetric scanning of the chest was performed. Using automated exposure control and adjustment of t he mA and/or kV according to patient size, radiation dose was kept as low as reasonably achievable to obtain optimal diagnostic quality images. DICOM format image data is available electronically for review and comparison. Follow-up recommendations for detected pulmonary nodules are based at a minimum on nodule size and pa tient risk factors according to Fleischner Society Guidelines. FINDINGS: LUNGS: There is focal airspace consolidation in the medial aspect of the right lower lobe abutting the pleur a measuring 2.4 x 1.1 cm. There is mild internal cavitation and mild surrounding consolidation. There is dependent atelectasis bilaterally. There is a scar identified in both upper lobes. No pneumothora x is present. PLEURA: There are small bilateral simple appearing pleural effusions. No pleural thickening is identified. MEDIASTINUM: There is coronary artery calcification. The heart and great vessels demonstrate no acute finding. No lymphadenopathy is identified. In the posterior mediastinum in a paraspinal location extending from a pproximately T3 to at least T8, there is abnormal paraspinal low-density material likely representing a paraspinal abscess. Portions contain gas. AXILLAE: Within normal limits. No lymphadenopathy. SKELETAL: There is essentially a thoracic kyphosis. Patient is post multilevel laminectomies. There is chronic sclerosis and partial destruction of what is thought to be the T7 vertebral body. There is persistent endplate irregularity at the inferior endplate at the T6 level. Superficial to the area of prior humphries inectomy is a gas-containing structure measuring at least 3 cm which extends to a open wound on the p atient's midline back. MISCELLANEOUS: The visualized upper abdominal organs demonstrate no acute abnormality. CONCLUSION: 1. Abnormal paraspinal fluid and soft tissue containing gas highly suspicious for a paraspinal absces s. This finding is similar distribution but decreased from the prior exam. It extends from approximat nathanael T3-T8. 2. There is an open wound on the midline back with contiguous subcutaneous air collection which exten ds to the area of prior laminectomy. There is a small amount of air within the spinal canal, likely i n the epidural space. 3. Focal airspace consolidation in the right lower lobe with partial cavitation measuring approximate ly 2.3 x 1.1 cm. There was an area of consolidation on the prior examination and in identical locatio n. However, it has decreased in size from the prior study. 4. Stable sclerosis and partial destruction of what is thought to be the T7 vertebral body. 5. Small bilateral pleural effusions. Roshan Galvez MD on December 21, 2016 at 14:24 Board Certified Radiologist. This report was verified electronically.
--- NOTE | 2016-12-21 15:52 | RADRPT ---
EXAM DATE/TIME: 12/21/2016 12:17 [facility] COMPARISON: CT THORACIC SPINE W/O CONTRAST, July 07, 2016, 18:47. Outside thoracic spine MRI was reviewed. INDICATIONS : Paraspinal abscess. SEDATION TIME: 30 minutes MEDICATION(S): 1.) 4 mg midazolam (Versed) IV 2.) 200 mcg fentanyl (Sublimaze) IV DEVICE(S): 1.) 22 gauge Chiba MEDICAL HISTORY : Cardiovascular disease. Osteomyelitis. Hepatitis C. SURGICAL HISTORY : Spinal surgery (t-spine). ENCOUNTER: Initial ACUITY: 1 day PAIN SCORE: 6/10 LOCATION: mid-back. PROCEDURE: PROCEDURE : 1. CT guided drainage of the paraspinal abscess 2. Conscious sedation with continuous EKG and oximetry monitoring. The risks, benefits and alternatives to the procedure were explained and verbal and written consent w as obtained. Using automated exposure control and adjustment of the mA and/or kV according to patient size, radiation dose was kept as low as reasonably achievable to obtain optimal diagnostic quality i mages. The site was prepped in sterile fashion. Full sterile technique was used, including cap, ma sk, sterile gloves and gown and a large sterile sheet. Hand hygiene and 2% chlorhexidine and/or beta dine/alcohol prep was utilized per protocol for cutaneous antisepsis. The skin and subcutaneous tiss ues were infiltrated with local anesthetic solution. DICOM format image data is available electronic ally for review and comparison. Using CT guidance the paraspinal abscess and superficial fluid collection was localized. Aspiration was first performed of the superficial air-containing fluid collection which appears to connect with the open wound. Approximately 1-2 cc of reddish foul smelling fluid was removed. Using a different ap proach, I attempted to enter the anterior paraspinal collection but given the small window given the closely spaced ribs in posterior elements I could not gain access to the anterior aspect of the fluid collection. The patient tolerated the procedure well and there were no complications. Conscious sedation was per formed with the prescribed dosages and duration as above in the presence of an independent trained ra diology nurse to assist in the monitoring of the patient. EKG and oximetry remained stable throughou t the procedure. The patient tolerated the procedure well and there were no complications. The patient was sent to pos t anesthesia recovery in stable condition. CONCLUSION: Uncomplicated CT guided aspiration of the paraspinal fluid collection. I was only able to aspirate ap proximately 1-2 cc of reddish foul-smelling fluid. The sample was saved and sent to the lab for micro biological analysis. Roshan Galvez MD on December 21, 2016 at 15:47 Board Certified Radiologist. This report was verified electronically.
[2016-12-21] MEDS: HYDROmorphone HCL PF 1 MG/ML VIAL IV PUSH PRN ×2 (17:17→20:33)
[2016-12-21] MEDS: VANCOMYCIN 1,000 MG/NS 250 ML IV SCH ×2 (17:17)
[2016-12-21] MEDS: oxyCODONE HCL 40 MG CONTROLLED RELEASE TAB PO SCH (20:32)
[2016-12-21] MEDS: AMITRIPTYLINE HCL 25 MG TAB PO SCH (20:33)
[2016-12-21] MEDS: oxyCODONE/ACETAMINOPHEN 10 MG/325 MG TAB PO PRN (22:46)
[2016-12-22] VITALS (19 sets, daily range): BP systolic 107–123; BP diastolic 71–83; PULSE 86–124; RESP 13–19; TEMP 97.9–98.3; O2SAT 93–97
[2016-12-22] MEDS: HYDROmorphone HCL PF 1 MG/ML VIAL IV PUSH PRN ×5 (00:59→20:17)
[2016-12-22] MEDS: oxyCODONE/ACETAMINOPHEN 10 MG/325 MG TAB PO PRN ×3 (03:04→17:38)
[2016-12-22] MEDS: CHLORHEXIDINE GLUCONATE 2 % 1 PACK (2 CLOTHS) TOP SCH (03:04)
[2016-12-22] MEDS: METHOCARBAMOL 500 MG TAB PO SCH ×3 (06:03→20:30)
[2016-12-22] MEDS: VANCOMYCIN 1,000 MG/NS 250 ML IV SCH ×4 (06:04→18:00)
[2016-12-22] MEDS: SODIUM CHLORIDE 0.9% FLUSH 10 ML FLUSH IV FLUSH PRN ×2 (06:04→20:16)
[2016-12-22] MEDS: INSULIN NovoLIN REGULAR SUPPLEMENTAL SCALE SQ SCH ×4 (08:00→20:23)
[2016-12-22] MEDS: CEFEPIME INJ 2,000 MG in SODIUM CHLORIDE 0.9% INJ 100 ML IV SCH ×2 (08:49→20:17)
[2016-12-22] MEDS: oxyCODONE HCL 40 MG CONTROLLED RELEASE TAB PO SCH ×2 (08:50→20:16)
[2016-12-22] MEDS: DOCUSATE SODIUM 50 MG/SENNA 8.6 MG TAB PO SCH ×2 (08:52→20:16)
[2016-12-22] MEDS: PANTOPRAZOLE SOD 40 MG DELAYED RELEASE TAB PO SCH (08:52)
[2016-12-22] MEDS: THIAMINE HCL 100 MG TAB PO SCH (08:52)
[2016-12-22] MEDS: MULTIVITAMIN TAB PO SCH (08:52)
[2016-12-22] MEDS: FOLIC ACID 1 MG TAB PO SCH (08:52)
[2016-12-22] MEDS: SODIUM CHLORIDE 0.9% FLUSH 10 ML FLUSH IV FLUSH SCH ×2 (09:00→20:16)
--- NOTE | 2016-12-22 09:16 | HHI.PR ---
Subjective Remarks In bed appears in some discomfort. Says she has pain in his right hip and lower back/ No fever ro chills. Able to eat , no n/v/d/c. No chest pain or sob. Objective Vitals Vital Signs Date Time Temp Pulse Resp B/P (MAP) Pulse Ox O2 Delivery O2 Flow Rate FiO2 12/22/16 07:00 95 21 12/22/16 06:00 86 12/22/16 04:00 98.1 93 16 113/73 (86) 95 12/22/16 04:00 93 12/22/16 02:00 91 12/22/16 00:00 98.2 94 13 117/80 (92) 94 12/22/16 00:00 94 12/21/16 22:00 103 12/21/16 20:00 100 12/21/16 20:00 98.5 100 19 113/74 (87) 95 12/21/16 19:53 98 12/21/16 18:00 94 12/21/16 17:00 97 12/21/16 16:00 103 12/21/16 16:00 98.7 103 21 111/77 (88) 96 12/21/16 15:00 122 12/21/16 15:00 122 25 94/68 (77) 98 12/21/16 14:00 109 12/21/16 14:00 109 16 103/71 (82) 95 12/21/16 13:25 114 12/21/16 13:25 114 17 130/87 (101) 96 12/21/16 11:04 105 12/21/16 11:00 94 12/21/16 10:00 109 I/O 12/21/16 12/21/16 12/21/16 12/22/16 12/22/16 12/22/16 07:00 15:00 23:00 07:00 15:00 23:00 Intake Total 1550 ml 500 ml 2218 ml 850 ml Output Total 1500 ml 1850 ml 1300 ml Balance 50 ml 500 ml 368 ml -450 ml Intake Oral 550 ml 1180 ml 600 ml IV Total 1000 ml 500 ml 1038 ml 250 ml Output Urine Total 1500 ml 1850 ml 1300 ml Result Diagram: 12/21/16 0329 12/21/16 0329 Imaging Last Impressions Chest CT 12/21/16 0000 Signed Impressions: Service Date/Time: December 11:52 - CONCLUSION: 1. Abnormal paraspinal fluid and soft tissue containing gas highly suspicious for a paraspinal abscess. This finding is similar distribution but decreased from the prior exam. It extends from approximately T3-T8. 2. There is an open wound on the midline back with contiguous subcutaneous air collection which extends to the area of prior laminectomy. There is a small amount of air within the spinal canal, likely in the epidural space. 3. Focal airspace consolidation in the right lower lobe with partial cavitation measuring approximately 2.3 x 1.1 cm. There was an area of consolidation on the prior examination and in identical location. However, it has decreased in size from the prior study. 4. Stable sclerosis and partial destruction of what is thought to be the T7 vertebral body. 5. Small bilateral pleural effusions. Roshan Galvez MD Abscess Drainage CT 12/21/16 0000 Signed Impressions: Service Date/Time: December 12:17 - CONCLUSION: Uncomplicated CT guided aspiration of the paraspinal fluid collection. I was only able to aspirate approximately 1-2 cc of reddish foul-smelling fluid. The sample was saved and sent to the lab for microbiological analysis. Roshan Galvez MD Chest X-Ray 12/20/16 0000 Signed Impressions: Service Date/Time: Tuesday, December 20, 2016 07:45 - CONCLUSION: Underinflation with atelectasis at the lung bases. Otherwise, no acute finding is appreciated. Roshan Galvez MD Objective Remarks GENERAL: 41-year-old male, very skinny, resting in bed in no acute distress SKIN: Warm and dry. Multiple tattoos bilateral upper extremities CARDIOVASCULAR: Tachycardia, RR. S1, S2 no S4. Do not appreciate murmur RESPIRATORY: Clear to auscultation. Breath sounds equal bilaterally. GASTROINTESTINAL: Abdomen soft, non-tender, nondistended. Hepatic and splenic margins not palpable. MUSCULOSKELETAL: Extremities without significant peripheral edema. Noted 3 x 3 open abscess/erythema with good granulation tissue over around T2/3 thoracic spine NEUROLOGICAL: Awake and alert. No obvious cranial nerve deficits. Motor grossly within normal limits. Five out of 5 muscle strength in the arms and legs. Normal speech. 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 - Osteomyelitis of vertebra, site unspecified (2) Gastroesophageal reflux disease ICD Code: K21.9 - Gastro-esophageal reflux disease without esophagitis (3) Acute kidney injury ICD Code: N17.9 - Acute kidney failure, unspecified (4) Thrombocytosis ICD Code: D47.3 - Essential (hemorrhagic) thrombocythemia (5) Microcytic anemia ICD Code: D50.9 - Iron deficiency anemia, unspecified (6) Leukocytosis ICD Code: D72.829 - Elevated white blood cell count, unspecified (7) Hyperkalemia ICD Code: E87.5 - Hyperkalemia (8) Discitis ICD Code: M46.40 - Discitis Status: Acute (9) Renal failure ICD Code: N19 - Renal failure Status: Acute (10) Intravenous drug abuse in remission ICD Code: F19.10 - Intravenous drug abuse in remission Status: Acute (11) HTN (hypertension) ICD Code: I10 - Essential (primary) hypertension Status: Acute (12) Osteomyelitis ICD Code: M86.9 - Osteomyelitis Status: Acute (13) Tobacco abuse ICD Code: Z72.0 - Tobacco abuse Status: Acute (14) Pulmonary abscess ICD Code: J85.2 - Abscess of lung without pneumonia Status: Acute Assessment and Plan Neuro/Psych: T5/6 through T7/8 discitis Pathologic fractures T5, 6 and 7. Paravertebral abscess T4 through 10 with extrapleural manifestations right-sided EtOH History of polysubstance abuse including cocaine and THC Acetaminophen for fever Hydrocodone/acetaminophen/morphine sulfate for pain management We'll place on OxyContin 20 milligrams by mouth twice a day for pain management Previously OxyContin 40 mg twice a day with Dilaudid 4 mg every 4 hours when necessary breakthrough pain Currently on amitriptyline 25 mg a night for depression Thiamine, multivitamin and folate daily Neurosurgery/Dr. Pickard consulted CV: Sinus tachycardia 2-D echocardiogram 05/29 revealed EF 55-60%. No regional wall motion abnormality. Currently normal saline at 84 cc an hour. Resp: Tobaccoism Nasal cannula to maintain saturations greater than or equal to 92% Incentive spirometry while awake As needed albuterol aerosols Chest x-ray 12/20 revealed no acute findings GI: Regular diet Pantoprazole 40 mg daily for GI prophylaxis Docusate sodium/senna 1 tablet twice daily for bowel regimen Follow-up liver function tests : History of suprapubic catheter Currently no acute issues Endo: Sliding-scale insulin if indicated to maintain euglycemia Renal: Acute kidney injury - resolved Monitor urine output Accurate I's and O's Currently on normal saline at 84 cc an hour Repeat labs in a.m. Heme: Microcytic anemia Check iron studies/ferritin. Peripheral smear Hemoccult stool Follow-up CBC in a.m. ID: Paravertebral abscess Currently on vancomycin/cefepime 12/20 - Blood cultures 2 no growth. Wound culture with staph aureus Infectious disease consultation appreciated with Dr. Cruz. Awaiting follow- up Mycobacterium abscesses cultures. S/P paravertebral abscess aspiration by IR on 12/22/16 with 2 cc of foul smelling red fluid. Cultures pending. ID specialist also ff. MSK: PT evaluate and treat FEN: Will repeat labs currently. Treat if indicated. Access - Utilize peripheral IV. Central line if indicated Prophylaxis - GI - pantoprazole - DVT - SCD/holding pharmacological prophylaxis in light of possible surgical intervention Transfer to neuro floor when okay with neurosurgery. Discussed with the patient, nurse Problem Qualifiers (1) Gastroesophageal reflux disease: Qualified Codes: K21.9 - Gastro-esophageal reflux disease without esophagitis (2) Leukocytosis: Qualified Codes: D72.829 - Elevated white blood cell count, unspecified (3) Discitis: Qualified Codes: M46.44 - Discitis, unspecified, thoracic region (4) Renal failure: Qualified Codes: N17.9 - Acute kidney failure, unspecified; N18.9 - Chronic kidney disease, unspecified (5) HTN (hypertension): Qualified Codes: I10 - Essential (primary) hypertension (6) Osteomyelitis: Qualified Codes: M86.8X0 - Other osteomyelitis, multiple sites (7) Pulmonary abscess: Qualified Codes: J85.2 - Abscess of lung without pneumonia Ariadna Sotomayor MD Dec 22, 2016 09:16
--- NOTE | 2016-12-22 17:13 | HHI.IDPN ---
Subjective Subjective Remarks no fever co pain , inability to weight bear R hip growing MSSA from the T spine wound CT showed abnormal paraspinal fluid and soft tissue containing gas highly suspicious for a paraspinal abscess. This finding is similar distribution but decreased from the prior exam. It extends from approximately T3-T8. 2. There is an open wound on the midline back with contiguous subcutaneous air collection which extends to the area of prior laminectomy. There is a small amount of air within the spinal canal, likely in the epidural space. 3. Focal airspace consolidation in the right lower lobe with partial cavitation measuring approximately 2.3 x 1.[address] Pickard sp drainage Foul smelling fluid was obtained Gstain neg Antibiotics vanco cefepime Past Medical History IVDU chronic vertebral osteo Allergies: Coded Allergies: aspirin (Unverified Allergy, Severe, 12/20/16) PATIENT STATES HE HAD A HOLE IN HIS HEART WHEN HE WAS BORN AND HE WAS TOLD NOT TO TAKE ASPIRIN. [facility] STATES NO KNOWN ALLERGIES PATIENT DENIES ALLERGY TO ASPIRIN. 04/01/13 Objective . Vital Signs Date Time Temp Pulse Resp B/P (MAP) Pulse Ox O2 Delivery O2 Flow Rate FiO2 12/22/16 13:00 106 12/22/16 12:00 103 12/22/16 12:00 98.0 103 13 107/71 (83) 94 12/22/16 11:00 97 12/22/16 10:00 124 12/22/16 09:00 91 12/22/16 08:00 98.3 89 13 123/83 (96) 96 12/22/16 08:00 89 12/22/16 07:00 88 12/22/16 07:00 95 21 12/22/16 06:00 86 12/22/16 04:00 98.1 93 16 113/73 (86) 95 12/22/16 04:00 93 12/22/16 02:00 91 12/22/16 00:00 98.2 94 13 117/80 (92) 94 12/22/16 00:00 94 12/21/16 22:00 103 12/21/16 20:00 100 12/21/16 20:00 98.5 100 19 113/74 (87) 95 12/21/16 19:53 98 12/21/16 18:00 94 . Laboratory Tests Test 12/21/16 03:29 White Blood Count 5.6 TH/MM3 Red Blood Count 3.76 MIL/MM3 Hemoglobin 8.5 GM/DL Hematocrit 25.2 % Mean Corpuscular Volume 67.1 FL Mean Corpuscular Hemoglobin 22.7 PG Mean Corpuscular Hemoglobin Concent 33.9 % Red Cell Distribution Width 17.5 % Platelet Count 431 TH/MM3 Mean Platelet Volume 8.2 FL CBC Comment AUTO DIFF Differential Total Cells Counted 100 Neutrophils % (Manual) 57 % Band Neutrophils % 10 % Lymphocytes % 20 % Monocytes % 12 % Eosinophils % 1 % Neutrophils # (Manual) 3.8 TH/MM3 Differential Comment FINAL DIFF MANUAL Toxic Granulation 1+ Platelet Estimate HIGH Platelet Morphology Comment ENLARGED Blood Smear Pathologist Review Laboratory Tests Test 12/21/16 03:29 12/21/16 14:30 Blood Urea Nitrogen 18 MG/DL Creatinine 0.79 MG/DL Random Glucose 79 MG/DL Total Protein 7.4 GM/DL Albumin 1.7 GM/DL Calcium Level 8.1 MG/DL Phosphorus Level 3.3 MG/DL Magnesium Level 2.2 MG/DL Alkaline Phosphatase 86 U/L Aspartate Amino Transf (AST/SGOT) 13 U/L Alanine Aminotransferase (ALT/SGPT) 21 U/L Total Bilirubin 0.2 MG/DL Sodium Level 137 MEQ/L Potassium Level 4.1 MEQ/L Chloride Level 105 MEQ/L Carbon Dioxide Level 25.9 MEQ/L Anion Gap 6 MEQ/L Estimat Glomerular Filtration Rate 107 ML/MIN Lactic Acid Level 0.7 mmol/L Iron Level 56 MCG/DL Total Iron Binding Capacity 309 MCG/DL Percent Iron Saturation 18.1 % Ferritin 193 NG/ML Microbiology Date/Time Source Procedure Growth Status 12/20/16 07:00 Blood Peripheral Aerobic Blood Culture - Preliminary NO GROWTH IN 2 DAYS Resulted 12/20/16 07:00 Blood Peripheral Anaerobic Blood Culture - Preliminary NO GROWTH IN 2 DAYS Resulted 12/20/16 06:55 Blood Peripheral Aerobic Blood Culture - Preliminary NO GROWTH IN 2 DAYS Resulted 12/20/16 06:55 Blood Peripheral Anaerobic Blood Culture - Preliminary NO GROWTH IN 2 DAYS Resulted 12/21/16 12:35 Fluid Other Gram Stain - Final Resulted 12/21/16 12:35 Fluid Other Body Fluid Culture - Preliminary NO GROWTH IN 24 HOURS. Resulted 12/21/16 12:35 Abscess Other Acid Fast Stain - Final NO ACID FAST BACILLI SEEN Resulted 12/21/16 12:35 Abscess Other Mycobacterial Culture Pending Resulted 12/20/16 07:00 Wound Back Gram Stain - Final Complete 12/20/16 07:00 Wound Culture - Final Staphylococcus Aureus Complete Imaging Last Impressions Chest CT 12/21/16 0000 Signed Impressions: Service Date/Time: December 11:52 - CONCLUSION: 1. Abnormal paraspinal fluid and soft tissue containing gas highly suspicious for a paraspinal abscess. This finding is similar distribution but decreased from the prior exam. It extends from approximately T3-T8. 2. There is an open wound on the midline back with contiguous subcutaneous air collection which extends to the area of prior laminectomy. There is a small amount of air within the spinal canal, likely in the epidural space. 3. Focal airspace consolidation in the right lower lobe with partial cavitation measuring approximately 2.3 x 1.1 cm. There was an area of consolidation on the prior examination and in identical location. However, it has decreased in size from the prior study. 4. Stable sclerosis and partial destruction of what is thought to be the T7 vertebral body. 5. Small bilateral pleural effusions. Roshan Galvez MD Abscess Drainage CT 12/21/16 0000 Signed Impressions: Service Date/Time: December 12:17 - CONCLUSION: Uncomplicated CT guided aspiration of the paraspinal fluid collection. I was only able to aspirate approximately 1-2 cc of reddish foul-smelling fluid. The sample was saved and sent to the lab for microbiological analysis. Roshan Galvez MD Chest X-Ray 12/20/16 0000 Signed Impressions: Service Date/Time: Tuesday, December 20, 2016 07:45 - CONCLUSION: Underinflation with atelectasis at the lung bases. Otherwise, no acute finding is appreciated. Roshan Galvez MD Physical Exam CONSTITUTIONAL/GENERAL: This is an undernourished chronically ill appearing patient, in no apparent distress. TUBES/LINES/DRAINS: SKIN: No jaundice, rashes, or lesions. Skin temperature appropriate. Not diaphoretic. CARDIOVASCULAR: Regular rate and rhythm without murmurs, gallops, or rubs. No JVD. Peripheral pulses symmetric. RESPIRATORY/CHEST: Symmetric, unlabored respirations. Clear to auscultation. Breath sounds equal bilaterally. No wheezes, rales, or rhonchi. GASTROINTESTINAL: Abdomen soft, non-tender, nondistended. No hepato-splenomegaly , or palpable masses. No guarding. Bowel sounds present. GENITOURINARY: Without palpable bladder distension. MUSCULOSKELETAL: Extremities without clubbing, cyanosis, or edema. Muscle bulk wastin BLE No calf tenderness. No mottling or clubbing. BACK: Kyphotic deformity of thoraci spine NEUROLOGICAL: Awake and alert. Motor and sensory grossly within normal limits. Follows commands. Clear speech . Moves all extremities. PSYCHIATRIC: Calm. no apparent hallucinations or other psychotic thought process. Assessment & Plan Remarks Chronic vertebral osteo, recurring epidural abscess, M. abscess, MSSA pathologic fractures T5, 6 and 7. Discitis from T5/6 to T7/8. Prevertebral abscess from T4 through T10 9.5 cm craniocaudal. sp drainage - clx P Right extrapulmonic abscesses noted 2.4 x 1.7 cm in the bilateral abscesses goes posteriorly 2.5 x 2.7 x 2 cm as well. Large epidural phlegmon causing spinal stenosis R hip pain with h/o ORIF Rec'sd: cont cefepime, vancomycin add Flafyl fu abscess culture result send AFB clx after CT guided draianage cultures are obtained will adjust Rx based obn previous M. abscess clx/ S Britney Cruz MD Dec 22, 2016 17:13
[2016-12-22] MEDS: metroNIDAZOLE 500 MG INJ 100 ML IV SCH (17:39)
[2016-12-22] MEDS: AMITRIPTYLINE HCL 25 MG TAB PO SCH (20:16)
[2016-12-23] VITALS (14 sets, daily range): BP systolic 89–124; BP diastolic 61–93; PULSE 94–107; RESP 15–20; TEMP 98.2–98.6; O2SAT 93–98
[2016-12-23] MEDS: HYDROmorphone HCL PF 1 MG/ML VIAL IV PUSH PRN ×6 (00:13→21:28)
[2016-12-23] MEDS: metroNIDAZOLE 500 MG INJ 100 ML IV SCH ×3 (02:05→17:21)
[2016-12-23] MEDS: CHLORHEXIDINE GLUCONATE 2 % 1 PACK (2 CLOTHS) TOP SCH (04:00)
[2016-12-23 05:39] LABS: BICARBONATE 25.6 MEQ/L (21.0-32.0); POTASSIUM 4.5 MEQ/L (3.5-5.1)
[2016-12-23] MEDS ORDERED: PHARMACY ORDERED LAB ONE (05:45)
[2016-12-23] MEDS: VANCOMYCIN 1,000 MG/NS 250 ML IV SCH ×4 (06:09→20:06)
[2016-12-23] MEDS: oxyCODONE/ACETAMINOPHEN 10 MG/325 MG TAB PO PRN ×2 (06:09→20:06)
[2016-12-23] MEDS: METHOCARBAMOL 500 MG TAB PO SCH ×3 (06:09→21:34)
[2016-12-23 06:12] LABS: AUTOMATED NEUTROPHIL # 4.6 TH/MM3 (1.8-7.7); BASOPHIL # 0.1 TH/MM3 (0-0.2); BASOPHIL % 1.1 % (0.0-2.0); EOSINOPHIL # 0.2 TH/MM3 (0-0.4); EOSINOPHIL % 2.5 % (0.0-4.0); HEMATOCRIT 29.3 % (39.0-51.0); HEMO FLAGS DIFF FINAL; LYMPH % 22.3 % (9.0-44.0); LYMPHOCYTE # 1.6 TH/MM3 (1.0-4.8); MEAN CELL VOLUME 67.6 FL (80.0-100.0); MEAN CORPUSCULAR HEMOGLOBIN 22.4 PG (27.0-34.0); MEAN CORPUSCULAR HGB CONC 33.1 % (32.0-36.0); MONO % 10.5 % (0.0-8.0); NEUT % 63.6 % (16.0-70.0); PLATELET COUNT 418 TH/MM3 (150-450); RED BLOOD COUNT 4.33 MIL/MM3 (4.50-5.90); RED CELL DISTRIBUTION WIDTH 17.4 % (11.6-17.2); WHITE BLOOD COUNT 7.2 TH/MM3 (4.0-11.0)
--- NOTE | 2016-12-23 07:59 | HHI.PR ---
Subjective Remarks Complains of pain and says current meds doesn't help much, has breakthrough pain . No fever or chills. No n/v/d/c. Denies chest pain or sob. Objective Vitals Vital Signs Date Time Temp Pulse Resp B/P (MAP) Pulse Ox O2 Delivery O2 Flow Rate FiO2 12/23/16 07:51 93 21 12/23/16 06:00 94 12/23/16 04:00 98.5 102 16 115/86 (96) 94 12/23/16 04:00 102 12/23/16 02:00 100 12/23/16 00:00 95 12/23/16 00:00 98.2 95 18 124/93 (103) 94 12/22/16 22:00 108 12/22/16 20:00 104 12/22/16 20:00 97.9 104 19 112/78 (89) 97 12/22/16 19:05 93 21 12/22/16 18:00 93 12/22/16 17:00 96 12/22/16 16:00 98.1 94 14 115/80 (92) 94 12/22/16 16:00 94 12/22/16 15:00 95 12/22/16 14:00 98 12/22/16 13:00 106 12/22/16 12:00 103 12/22/16 12:00 98.0 103 13 107/71 (83) 94 12/22/16 11:00 97 12/22/16 10:00 124 12/22/16 09:00 91 12/22/16 08:00 98.3 89 13 123/83 (96) 96 12/22/16 08:00 89 I/O 12/22/16 12/22/16 12/22/16 12/23/16 12/23/16 12/23/16 07:00 15:00 23:00 07:00 15:00 23:00 Intake Total 850 ml 100 ml 1750 ml 700 ml Output Total 1300 ml 1200 ml 1600 ml Balance -450 ml 100 ml 550 ml -900 ml Intake Oral 600 ml 1400 ml 500 ml IV Total 250 ml 100 ml 350 ml 200 ml Output Urine Total 1300 ml 1200 ml 1600 ml Result Diagram: 12/23/16 0450 12/23/16 0450 Imaging Last Impressions Chest CT 12/21/16 0000 Signed Impressions: Service Date/Time: December 11:52 - CONCLUSION: 1. Abnormal paraspinal fluid and soft tissue containing gas highly suspicious for a paraspinal abscess. This finding is similar distribution but decreased from the prior exam. It extends from approximately T3-T8. 2. There is an open wound on the midline back with contiguous subcutaneous air collection which extends to the area of prior laminectomy. There is a small amount of air within the spinal canal, likely in the epidural space. 3. Focal airspace consolidation in the right lower lobe with partial cavitation measuring approximately 2.3 x 1.1 cm. There was an area of consolidation on the prior examination and in identical location. However, it has decreased in size from the prior study. 4. Stable sclerosis and partial destruction of what is thought to be the T7 vertebral body. 5. Small bilateral pleural effusions. Roshan Galvez MD Abscess Drainage CT 12/21/16 0000 Signed Impressions: Service Date/Time: December 12:17 - CONCLUSION: Uncomplicated CT guided aspiration of the paraspinal fluid collection. I was only able to aspirate approximately 1-2 cc of reddish foul-smelling fluid. The sample was saved and sent to the lab for microbiological analysis. Roshan Galvez MD Chest X-Ray 12/20/16 0000 Signed Impressions: Service Date/Time: Tuesday, December 20, 2016 07:45 - CONCLUSION: Underinflation with atelectasis at the lung bases. Otherwise, no acute finding is appreciated. Roshan Galvez MD Objective Remarks GENERAL: 41-year-old male, very skinny, resting in bed in no acute distress SKIN: Warm and dry. Multiple tattoos bilateral upper extremities CARDIOVASCULAR: Tachycardia, RR. S1, S2 no S4. Do not appreciate murmur RESPIRATORY: Clear to auscultation. Breath sounds equal bilaterally. GASTROINTESTINAL: Abdomen soft, non-tender, nondistended. Hepatic and splenic margins not palpable. MUSCULOSKELETAL: Extremities without significant peripheral edema. Noted 3 x 3 open abscess/erythema with good granulation tissue over around T2/3 thoracic spine NEUROLOGICAL: Awake and alert. No obvious cranial nerve deficits. Motor grossly within normal limits. Five out of 5 muscle strength in the arms and legs. Normal speech. 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 - Osteomyelitis of vertebra, site unspecified (2) Gastroesophageal reflux disease ICD Code: K21.9 - Gastro-esophageal reflux disease without esophagitis (3) Acute kidney injury ICD Code: N17.9 - Acute kidney failure, unspecified (4) Thrombocytosis ICD Code: D47.3 - Essential (hemorrhagic) thrombocythemia (5) Microcytic anemia ICD Code: D50.9 - Iron deficiency anemia, unspecified (6) Leukocytosis ICD Code: D72.829 - Elevated white blood cell count, unspecified (7) Hyperkalemia ICD Code: E87.5 - Hyperkalemia (8) Discitis ICD Code: M46.40 - Discitis Status: Acute (9) Renal failure ICD Code: N19 - Renal failure Status: Acute (10) Intravenous drug abuse in remission ICD Code: F19.10 - Intravenous drug abuse in remission Status: Acute (11) HTN (hypertension) ICD Code: I10 - Essential (primary) hypertension Status: Acute (12) Osteomyelitis ICD Code: M86.9 - Osteomyelitis Status: Acute (13) Tobacco abuse ICD Code: Z72.0 - Tobacco abuse Status: Acute (14) Pulmonary abscess ICD Code: J85.2 - Abscess of lung without pneumonia Status: Acute Assessment and Plan Neuro/Psych: T5/6 through T7/8 discitis Pathologic fractures T5, 6 and 7. 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 On percocet per pain sclae 1-5 , dilaudid for pain 6-10 and add dilaudid 0.5 for breakthrough pain . Will consult palliative care for bass management. Previously OxyContin 40 mg twice a day with Dilaudid 4 mg every 4 hours when necessary breakthrough pain Currently on amitriptyline 25 mg a night for depression Thiamine, multivitamin and folate daily Neurosurgery/Dr. Pickard consulted CV: Sinus tachycardia 2-D echocardiogram 05/29 revealed EF 55-60%. No regional wall motion abnormality. Currently normal saline at 84 cc an hour. Resp: Tobaccoism Nasal cannula to maintain saturations greater than or equal to 92% Incentive spirometry while awake As needed albuterol aerosols Chest x-ray 12/20 revealed no acute findings GI: Regular diet Pantoprazole 40 mg daily for GI prophylaxis Docusate sodium/senna 1 tablet twice daily for bowel regimen Follow-up liver function tests : History of suprapubic catheter Currently no acute issues Endo: Sliding-scale insulin if indicated to maintain euglycemia Renal: Acute kidney injury - resolved Monitor urine output Accurate I's and O's Currently on normal saline at 84 cc an hour Repeat labs in a.m. Heme: Microcytic anemia Check iron studies/ferritin. Peripheral smear Hemoccult stool Follow-up CBC in a.m. ID: Paravertebral abscess Currently on vancomycin/cefepime 12/20 - Blood cultures 2 no growth. Wound culture with staph aureus Infectious disease consultation appreciated with Dr. Cruz. Awaiting follow- up Mycobacterium abscesses cultures. S/P paravertebral abscess aspiration by IR on 12/22/16 with 2 cc of foul smelling red fluid. Cultures pending. ID specialist also ff. MSK: PT evaluate and treat FEN: Will repeat labs currently. Treat if indicated. Access - Utilize peripheral IV. Central line if indicated Prophylaxis - GI - pantoprazole - DVT - SCD/holding pharmacological prophylaxis in light of possible surgical intervention Transfer to neuro floor when okay with neurosurgery. Discussed with the patient, nurse Problem Qualifiers (1) Gastroesophageal reflux disease: Qualified Codes: K21.9 - Gastro-esophageal reflux disease without esophagitis (2) Leukocytosis: Qualified Codes: D72.829 - Elevated white blood cell count, unspecified (3) Discitis: Qualified Codes: M46.44 - Discitis, unspecified, thoracic region (4) Renal failure: Qualified Codes: N17.9 - Acute kidney failure, unspecified; N18.9 - Chronic kidney disease, unspecified (5) HTN (hypertension): Qualified Codes: I10 - Essential (primary) hypertension (6) Osteomyelitis: Qualified Codes: M86.8X0 - Other osteomyelitis, multiple sites (7) Pulmonary abscess: Qualified Codes: J85.2 - Abscess of lung without pneumonia Ariadna Sotomayor MD Dec 23, 2016 07:59
[2016-12-23] MEDS: INSULIN NovoLIN REGULAR SUPPLEMENTAL SCALE SQ SCH ×4 (08:00→20:10)
[2016-12-23] MEDS: SODIUM CHLORIDE 0.9% FLUSH 10 ML FLUSH IV FLUSH SCH ×2 (08:31→20:07)
[2016-12-23] MEDS: FOLIC ACID 1 MG TAB PO SCH (08:56)
[2016-12-23] MEDS: MULTIVITAMIN TAB PO SCH (08:56)
[2016-12-23] MEDS: DOCUSATE SODIUM 50 MG/SENNA 8.6 MG TAB PO SCH ×2 (08:56→20:06)
[2016-12-23] MEDS: PANTOPRAZOLE SOD 40 MG DELAYED RELEASE TAB PO SCH (08:56)
[2016-12-23] MEDS: oxyCODONE HCL 40 MG CONTROLLED RELEASE TAB PO SCH ×2 (08:57→21:29)
[2016-12-23] MEDS: CEFEPIME INJ 2,000 MG in SODIUM CHLORIDE 0.9% INJ 100 ML IV SCH ×2 (08:57→20:06)
[2016-12-23] MEDS: THIAMINE HCL 100 MG TAB PO SCH (09:03)
[2016-12-23] MEDS: IBUPROFEN 400 MG TAB PO PRN (20:05)
[2016-12-23] MEDS: AMITRIPTYLINE HCL 25 MG TAB PO SCH (20:06)
[2016-12-24] VITALS (11 sets, daily range): BP systolic 82–119; BP diastolic 58–86; PULSE 90–115; RESP 13–40; TEMP 97.8–98.7; O2SAT 94–98
[2016-12-24] MEDS: CHLORHEXIDINE GLUCONATE 2 % 1 PACK (2 CLOTHS) TOP SCH (04:00)
[2016-12-24] MEDS: METHOCARBAMOL 500 MG TAB PO SCH ×3 (04:42→21:34)
[2016-12-24] MEDS: VANCOMYCIN 1,000 MG/NS 250 ML IV SCH ×2 (04:42)
[2016-12-24] MEDS: HYDROmorphone HCL PF 1 MG/ML VIAL IV PUSH PRN ×5 (04:42→21:31)
[2016-12-24] MEDS: metroNIDAZOLE 500 MG INJ 100 ML IV SCH ×3 (04:45→21:33)
--- NOTE | 2016-12-24 07:30 | HHI.PR ---
Subjective Remarks Assessment pain is controlled with current medications. His tachycardic. No fever or chills overnight. No nausea or vomiting has decreased appetite not eating good. Feels weak Objective Vitals Vital Signs Date Time Temp Pulse Resp B/P (MAP) Pulse Ox O2 Delivery O2 Flow Rate FiO2 12/24/16 06:00 92 12/24/16 04:00 98.1 99 40 92/67 (75) 97 12/24/16 04:00 90 12/24/16 02:00 95 12/24/16 00:00 102 12/24/16 00:00 98.4 96 19 82/58 (66) 94 12/23/16 22:00 100 12/23/16 20:00 98.3 102 20 120/87 (98) 98 12/23/16 20:00 94 12/23/16 19:43 96 21 12/23/16 18:00 103 12/23/16 17:51 18 12/23/16 16:00 95 12/23/16 16:00 98.5 95 17 112/74 (87) 96 12/23/16 14:00 97 12/23/16 12:00 99 12/23/16 12:00 98.4 99 15 89/61 (70) 94 12/23/16 10:00 107 12/23/16 09:57 18 12/23/16 08:00 98.6 96 15 117/84 (95) 93 12/23/16 08:00 96 12/23/16 07:51 93 21 I/O 12/23/16 12/23/16 12/23/16 12/24/16 12/24/16 12/24/16 07:00 15:00 23:00 07:00 15:00 23:00 Intake Total 700 ml 450 ml 700 ml 1065 ml Output Total 1600 ml 1600 ml 1100 ml Balance -900 ml 450 ml -900 ml -35 ml Intake Oral 500 ml 600 ml 1065 ml IV Total 200 ml 450 ml 100 ml Output Urine Total 1600 ml 1600 ml 1100 ml # Bowel Movements 0 0 Result Diagram: 12/23/16 0450 12/23/16 0450 Imaging Last Impressions Chest CT 12/21/16 0000 Signed Impressions: Service Date/Time: December 11:52 - CONCLUSION: 1. Abnormal paraspinal fluid and soft tissue containing gas highly suspicious for a paraspinal abscess. This finding is similar distribution but decreased from the prior exam. It extends from approximately T3-T8. 2. There is an open wound on the midline back with contiguous subcutaneous air collection which extends to the area of prior laminectomy. There is a small amount of air within the spinal canal, likely in the epidural space. 3. Focal airspace consolidation in the right lower lobe with partial cavitation measuring approximately 2.3 x 1.1 cm. There was an area of consolidation on the prior examination and in identical location. However, it has decreased in size from the prior study. 4. Stable sclerosis and partial destruction of what is thought to be the T7 vertebral body. 5. Small bilateral pleural effusions. Roshan Galvez MD Abscess Drainage CT 12/21/16 0000 Signed Impressions: Service Date/Time: December 12:17 - CONCLUSION: Uncomplicated CT guided aspiration of the paraspinal fluid collection. I was only able to aspirate approximately 1-2 cc of reddish foul-smelling fluid. The sample was saved and sent to the lab for microbiological analysis. Roshan Galvez MD Chest X-Ray 12/20/16 0000 Signed Impressions: Service Date/Time: Tuesday, December 20, 2016 07:45 - CONCLUSION: Underinflation with atelectasis at the lung bases. Otherwise, no acute finding is appreciated. Roshan Galvez MD Objective Remarks GENERAL: 41-year-old male, very skinny, resting in bed in no acute distress SKIN: Warm and dry. Multiple tattoos bilateral upper extremities CARDIOVASCULAR: Tachycardia, RR. S1, S2 no S4. Do not appreciate murmur RESPIRATORY: Clear to auscultation. Breath sounds equal bilaterally. GASTROINTESTINAL: Abdomen soft, non-tender, nondistended. Hepatic and splenic margins not palpable. MUSCULOSKELETAL: Extremities without significant peripheral edema. Noted 3 x 3 open abscess/erythema with good granulation tissue over around T2/3 thoracic spine NEUROLOGICAL: Awake and alert. No obvious cranial nerve deficits. Motor grossly within normal limits. Five out of 5 muscle strength in the arms and legs. Normal speech. 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 - Osteomyelitis of vertebra, site unspecified (2) Gastroesophageal reflux disease ICD Code: K21.9 - Gastro-esophageal reflux disease without esophagitis (3) Acute kidney injury ICD Code: N17.9 - Acute kidney failure, unspecified (4) Thrombocytosis ICD Code: D47.3 - Essential (hemorrhagic) thrombocythemia (5) Microcytic anemia ICD Code: D50.9 - Iron deficiency anemia, unspecified (6) Leukocytosis ICD Code: D72.829 - Elevated white blood cell count, unspecified (7) Hyperkalemia ICD Code: E87.5 - Hyperkalemia (8) Discitis ICD Code: M46.40 - Discitis Status: Acute (9) Renal failure ICD Code: N19 - Renal failure Status: Acute (10) Intravenous drug abuse in remission ICD Code: F19.10 - Intravenous drug abuse in remission Status: Acute (11) HTN (hypertension) ICD Code: I10 - Essential (primary) hypertension Status: Acute (12) Osteomyelitis ICD Code: M86.9 - Osteomyelitis Status: Acute (13) Tobacco abuse ICD Code: Z72.0 - Tobacco abuse Status: Acute (14) Pulmonary abscess ICD Code: J85.2 - Abscess of lung without pneumonia Status: Acute Assessment and Plan Neuro/Psych: T5/6 through T7/8 discitis Pathologic fractures T5, 6 and 7. 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 On percocet per pain sclae 1-5 , dilaudid for pain 6-10 and add dilaudid 0.5 for breakthrough pain . Will consult palliative care for bass management. Previously OxyContin 40 mg twice a day with Dilaudid 4 mg every 4 hours when necessary breakthrough pain Currently on amitriptyline 25 mg a night for depression Thiamine, multivitamin and folate daily Neurosurgery/Dr. Pickard consulted CV: Sinus tachycardia 2-D echocardiogram 05/29 revealed EF 55-60%. No regional wall motion abnormality. Currently normal saline at 84 cc an hour. Resp: Tobaccoism Nasal cannula to maintain saturations greater than or equal to 92% Incentive spirometry while awake As needed albuterol aerosols Chest x-ray 12/20 revealed no acute findings GI: Regular diet Pantoprazole 40 mg daily for GI prophylaxis Docusate sodium/senna 1 tablet twice daily for bowel regimen Follow-up liver function tests : History of suprapubic catheter Currently no acute issues Endo: Sliding-scale insulin if indicated to maintain euglycemia Renal: Acute kidney injury - resolved Monitor urine output Accurate I's and O's Currently on normal saline at 84 cc an hour Repeat labs in a.m. Heme: Microcytic anemia Check iron studies/ferritin. Patient with iron deficiency anemia. Start ferrous sulfate 325 mg by mouth twice a day. Peripheral smear Hemoccult stool Follow-up CBC in a.m. ID: Paravertebral abscess Currently on vancomycin/cefepime 12/20 - Blood cultures 2 no growth. Wound culture with staph aureus Infectious disease consultation appreciated with Dr. Cruz. Awaiting follow- up Mycobacterium abscesses cultures. S/P paravertebral abscess aspiration by IR on 12/22/16 with 2 cc of foul smelling red fluid. Cultures pending. ID specialist also ff. MSK: PT evaluate and treat Severe Protein calorie malnutrition BMI of 78, low albumin of 1.7. He can repeat, muscle wasting. Bitemporal wasting. 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 Access - Utilize peripheral IV. Central line if indicated Prophylaxis - GI - pantoprazole - DVT - SCD/holding pharmacological prophylaxis in light of possible surgical intervention Transfer to neuro floor when okay with neurosurgery. Consult PT and OT Discussed with the patient, nurse Problem Qualifiers (1) Gastroesophageal reflux disease: Qualified Codes: K21.9 - Gastro-esophageal reflux disease without esophagitis (2) Leukocytosis: Qualified Codes: D72.829 - Elevated white blood cell count, unspecified (3) Discitis: Qualified Codes: M46.44 - Discitis, unspecified, thoracic region (4) Renal failure: Qualified Codes: N17.9 - Acute kidney failure, unspecified; N18.9 - Chronic kidney disease, unspecified (5) HTN (hypertension): Qualified Codes: I10 - Essential (primary) hypertension (6) Osteomyelitis: Qualified Codes: M86.8X0 - Other osteomyelitis, multiple sites (7) Pulmonary abscess: Qualified Codes: J85.2 - Abscess of lung without pneumonia Ariadna Sotomayor MD Dec 24, 2016 07:30
[2016-12-24] MEDS: INSULIN NovoLIN REGULAR SUPPLEMENTAL SCALE SQ SCH ×4 (08:00→21:34)
[2016-12-24] MEDS: MULTIVITAMIN TAB PO SCH (08:23)
[2016-12-24] MEDS: CEFEPIME INJ 2,000 MG in SODIUM CHLORIDE 0.9% INJ 100 ML IV SCH ×2 (08:23→21:34)
[2016-12-24] MEDS: FOLIC ACID 1 MG TAB PO SCH (08:23)
[2016-12-24] MEDS: PANTOPRAZOLE SOD 40 MG DELAYED RELEASE TAB PO SCH (08:23)
[2016-12-24] MEDS: THIAMINE HCL 100 MG TAB PO SCH (08:23)
[2016-12-24] MEDS: DOCUSATE SODIUM 50 MG/SENNA 8.6 MG TAB PO SCH ×2 (08:23→21:34)
[2016-12-24] MEDS: oxyCODONE HCL 40 MG CONTROLLED RELEASE TAB PO SCH ×2 (08:24→21:34)
[2016-12-24] MEDS: SODIUM CHLORIDE 0.9% FLUSH 10 ML FLUSH IV FLUSH SCH ×2 (09:00→21:36)
[2016-12-24] MEDS: FERROUS SULFATE 325 MG (65 MG ELEMENTAL IRON) TAB PO SCH ×2 (11:55→17:25)
[2016-12-24] MEDS: VANCOMYCIN INJ 750 MG in SODIUM CHLOR 0.9% 250 ML INJ 250 ML IV SCH (18:11)
[2016-12-24] MEDS: oxyCODONE/ACETAMINOPHEN 10 MG/325 MG TAB PO PRN (18:38)
[2016-12-24] MEDS: AMITRIPTYLINE HCL 25 MG TAB PO SCH (21:34)
[2016-12-25] MEDS: HYDROmorphone HCL PF 1 MG/ML VIAL IV PUSH PRN ×6 (01:30→23:19)
[2016-12-25 01:31] VITALS: BP 100/67; PULSE 106; RESP 17; TEMP 98.5; O2SAT 98
[2016-12-25] MEDS: metroNIDAZOLE 500 MG INJ 100 ML IV SCH ×3 (04:32→21:59)
[2016-12-25] MEDS: CHLORHEXIDINE GLUCONATE 2 % 1 PACK (2 CLOTHS) TOP SCH (04:32)
[2016-12-25] MEDS: oxyCODONE/ACETAMINOPHEN 10 MG/325 MG TAB PO PRN ×4 (04:39→22:20)
[2016-12-25 04:42] VITALS: BP 108/79; PULSE 96; RESP 18; TEMP 97.7; O2SAT 98
[2016-12-25] MEDS: METHOCARBAMOL 500 MG TAB PO SCH ×3 (05:45→22:00)
[2016-12-25] MEDS: VANCOMYCIN INJ 750 MG in SODIUM CHLOR 0.9% 250 ML INJ 250 ML IV SCH ×2 (05:45→17:06)
[2016-12-25 07:21] LABS: AUTOMATED NEUTROPHIL # 3.6 TH/MM3 (1.8-7.7); BASOPHIL # 0.1 TH/MM3 (0-0.2); BASOPHIL % 1.2 % (0.0-2.0); EOSINOPHIL # 0.2 TH/MM3 (0-0.4); EOSINOPHIL % 2.8 % (0.0-4.0); HEMATOCRIT 29.1 % (39.0-51.0); HEMO FLAGS DIFF FINAL; LYMPH % 26.6 % (9.0-44.0); LYMPHOCYTE # 1.6 TH/MM3 (1.0-4.8); MEAN CELL VOLUME 68.2 FL (80.0-100.0); MEAN CORPUSCULAR HEMOGLOBIN 22.3 PG (27.0-34.0); MEAN CORPUSCULAR HGB CONC 32.8 % (32.0-36.0); MONO % 8.4 % (0.0-8.0); PLATELET COUNT 472 TH/MM3 (150-450); RED BLOOD COUNT 4.27 MIL/MM3 (4.50-5.90); RED CELL DISTRIBUTION WIDTH 18.2 % (11.6-17.2); WHITE BLOOD COUNT 5.9 TH/MM3 (4.0-11.0)
[2016-12-25 07:44] LABS: BICARBONATE 27.6 MEQ/L (21.0-32.0); POTASSIUM 4.1 MEQ/L (3.5-5.1)
[2016-12-25] MEDS: INSULIN NovoLIN REGULAR SUPPLEMENTAL SCALE SQ SCH ×4 (08:00→21:00)
[2016-12-25] MEDS: DOCUSATE SODIUM 50 MG/SENNA 8.6 MG TAB PO SCH ×2 (09:13→21:59)
[2016-12-25] MEDS: oxyCODONE HCL 40 MG CONTROLLED RELEASE TAB PO SCH ×2 (09:13→21:59)
[2016-12-25] MEDS: FOLIC ACID 1 MG TAB PO SCH (09:13)
[2016-12-25] MEDS: SODIUM CHLORIDE 0.9% FLUSH 10 ML FLUSH IV FLUSH SCH ×2 (09:13→21:00)
[2016-12-25] MEDS: MULTIVITAMIN TAB PO SCH (09:13)
[2016-12-25] MEDS: PANTOPRAZOLE SOD 40 MG DELAYED RELEASE TAB PO SCH (09:13)
[2016-12-25] MEDS: THIAMINE HCL 100 MG TAB PO SCH (09:13)
[2016-12-25] MEDS: CEFEPIME INJ 2,000 MG in SODIUM CHLORIDE 0.9% INJ 100 ML IV SCH ×2 (09:14→22:00)
--- NOTE | 2016-12-25 10:40 | HHI.PR ---
Subjective Remarks With pain however able to ambulate with a walker.No fever o chills. No n/v/d/c. Objective Vitals Vital Signs Date Time Temp Pulse Resp B/P (MAP) Pulse Ox O2 Delivery O2 Flow Rate FiO2 12/25/16 04:42 97.7 96 18 108/79 (89) 98 12/25/16 01:31 98.5 106 17 100/67 (78) 98 12/24/16 21:25 98.7 101 20 116/76 (89) 98 12/24/16 16:00 97 12/24/16 16:00 97.8 97 20 96/65 (75) 96 12/24/16 14:00 96 12/24/16 13:50 18 12/24/16 12:00 98.0 94 13 110/77 (88) 94 12/24/16 12:00 96 I/O 12/24/16 12/24/16 12/24/16 12/25/16 12/25/16 12/25/16 07:00 15:00 23:00 07:00 15:00 23:00 Intake Total 1165 ml 200 ml 200 ml 340 ml Output Total 1100 ml 500 ml Balance 65 ml 200 ml 200 ml -160 ml Intake Oral 1065 ml 240 ml IV Total 100 ml 200 ml 200 ml 100 ml Output Urine Total 1100 ml 500 ml # Bowel Movements 0 Result Diagram: 12/25/16 0630 12/25/16 0630 Imaging Last Impressions Chest CT 12/21/16 0000 Signed Impressions: Service Date/Time: December 11:52 - CONCLUSION: 1. Abnormal paraspinal fluid and soft tissue containing gas highly suspicious for a paraspinal abscess. This finding is similar distribution but decreased from the prior exam. It extends from approximately T3-T8. 2. There is an open wound on the midline back with contiguous subcutaneous air collection which extends to the area of prior laminectomy. There is a small amount of air within the spinal canal, likely in the epidural space. 3. Focal airspace consolidation in the right lower lobe with partial cavitation measuring approximately 2.3 x 1.1 cm. There was an area of consolidation on the prior examination and in identical location. However, it has decreased in size from the prior study. 4. Stable sclerosis and partial destruction of what is thought to be the T7 vertebral body. 5. Small bilateral pleural effusions. Roshan Galvez MD Abscess Drainage CT 12/21/16 0000 Signed Impressions: Service Date/Time: December 12:17 - CONCLUSION: Uncomplicated CT guided aspiration of the paraspinal fluid collection. I was only able to aspirate approximately 1-2 cc of reddish foul-smelling fluid. The sample was saved and sent to the lab for microbiological analysis. Roshan Galvez MD Chest X-Ray 12/20/16 0000 Signed Impressions: Service Date/Time: Tuesday, December 20, 2016 07:45 - CONCLUSION: Underinflation with atelectasis at the lung bases. Otherwise, no acute finding is appreciated. Roshan Galvez MD Objective Remarks GENERAL: 41-year-old male, very skinny, resting in bed in no acute distress SKIN: Warm and dry. Multiple tattoos bilateral upper extremities CARDIOVASCULAR: Tachycardia, RR. S1, S2 no S4. Do not appreciate murmur RESPIRATORY: Clear to auscultation. Breath sounds equal bilaterally. GASTROINTESTINAL: Abdomen soft, non-tender, nondistended. Hepatic and splenic margins not palpable. MUSCULOSKELETAL: Extremities without significant peripheral edema. Noted 3 x 3 open abscess/erythema with good granulation tissue over around T2/3 thoracic spine NEUROLOGICAL: Awake and alert. No obvious cranial nerve deficits. Motor grossly within normal limits. Five out of 5 muscle strength in the arms and legs. Normal speech. 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 - Osteomyelitis of vertebra, site unspecified (2) Gastroesophageal reflux disease ICD Code: K21.9 - Gastro-esophageal reflux disease without esophagitis (3) Acute kidney injury ICD Code: N17.9 - Acute kidney failure, unspecified (4) Thrombocytosis ICD Code: D47.3 - Essential (hemorrhagic) thrombocythemia (5) Microcytic anemia ICD Code: D50.9 - Iron deficiency anemia, unspecified (6) Leukocytosis ICD Code: D72.829 - Elevated white blood cell count, unspecified (7) Hyperkalemia ICD Code: E87.5 - Hyperkalemia (8) Discitis ICD Code: M46.40 - Discitis Status: Acute (9) Renal failure ICD Code: N19 - Renal failure Status: Acute (10) Intravenous drug abuse in remission ICD Code: F19.10 - Intravenous drug abuse in remission Status: Acute (11) HTN (hypertension) ICD Code: I10 - Essential (primary) hypertension Status: Acute (12) Osteomyelitis ICD Code: M86.9 - Osteomyelitis Status: Acute (13) Tobacco abuse ICD Code: Z72.0 - Tobacco abuse Status: Acute (14) Pulmonary abscess ICD Code: J85.2 - Abscess of lung without pneumonia Status: Acute Assessment and Plan Neuro/Psych: T5/6 through T7/8 discitis Pathologic fractures T5, 6 and 7. 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 On percocet per pain sclae 1-5 , dilaudid for pain 6-10 and add dilaudid 0.5 for breakthrough pain . Will consult palliative care for bass management. Previously OxyContin 40 mg twice a day with Dilaudid 4 mg every 4 hours when necessary breakthrough pain Currently on amitriptyline 25 mg a night for depression Thiamine, multivitamin and folate daily Neurosurgery/Dr. Pickard consulted CV: Sinus tachycardia 2-D echocardiogram 05/29 revealed EF 55-60%. No regional wall motion abnormality. Currently normal saline at 84 cc an hour. Resp: Tobaccoism Nasal cannula to maintain saturations greater than or equal to 92% Incentive spirometry while awake As needed albuterol aerosols Chest x-ray 12/20 revealed no acute findings GI: Regular diet Pantoprazole 40 mg daily for GI prophylaxis Docusate sodium/senna 1 tablet twice daily for bowel regimen Follow-up liver function tests : History of suprapubic catheter Currently no acute issues Endo: Sliding-scale insulin if indicated to maintain euglycemia Renal: Acute kidney injury - resolved Monitor urine output Accurate I's and O's Currently on normal saline at 84 cc an hour Repeat labs in a.m. Heme: Microcytic anemia Check iron studies/ferritin. Patient with iron deficiency anemia. Start ferrous sulfate 325 mg by mouth twice a day. Peripheral smear Hemoccult stool Follow-up CBC in a.m. ID: Paravertebral abscess Currently on vancomycin/cefepime 12/20 - Blood cultures 2 no growth. Wound culture with staph aureus Infectious disease consultation appreciated with Dr. Cruz. Awaiting follow- up Mycobacterium abscesses cultures. S/P paravertebral abscess aspiration by IR on 12/22/16 with 2 cc of foul smelling red fluid. Cultures pending. ID specialist also ff. MSK: PT evaluate and treat Severe Protein calorie malnutrition BMI of 78, low albumin of 1.7. He can repeat, muscle wasting. Bitemporal wasting. 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 Access - Utilize peripheral IV. Central line if indicated Prophylaxis - GI - pantoprazole - DVT - SCD/holding pharmacological prophylaxis in light of possible surgical intervention Consult PT and OT Discussed with the patient, nurse DC plan: difficult DC , discussed with [facility] case management. Patient will need wound care, PT, IV antibiotic and pain management at DC Problem Qualifiers (1) Gastroesophageal reflux disease: Qualified Codes: K21.9 - Gastro-esophageal reflux disease without esophagitis (2) Leukocytosis: Qualified Codes: D72.829 - Elevated white blood cell count, unspecified (3) Discitis: Qualified Codes: M46.44 - Discitis, unspecified, thoracic region (4) Renal failure: Qualified Codes: N17.9 - Acute kidney failure, unspecified; N18.9 - Chronic kidney disease, unspecified (5) HTN (hypertension): Qualified Codes: I10 - Essential (primary) hypertension (6) Osteomyelitis: Qualified Codes: M86.8X0 - Other osteomyelitis, multiple sites (7) Pulmonary abscess: Qualified Codes: J85.2 - Abscess of lung without pneumonia Ariadna Sotomayor MD Dec 25, 2016 10:40
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
[2016-12-25 12:01] VITALS: BP 116/75; PULSE 98; RESP 20; TEMP 98.7; O2SAT 97
[2016-12-25] MEDS: FERROUS SULFATE 325 MG (65 MG ELEMENTAL IRON) TAB PO SCH ×2 (12:59→17:06)
[2016-12-25 16:45] VITALS: BP 125/74; PULSE 93; RESP 20; TEMP 97.9; O2SAT 98
[2016-12-25 20:49] VITALS: BP 112/77; PULSE 101; RESP 20; TEMP 98.3; O2SAT 98
[2016-12-25] MEDS: AMITRIPTYLINE HCL 25 MG TAB PO SCH (21:59)
[2016-12-26] MEDS: CHLORHEXIDINE GLUCONATE 2 % 1 PACK (2 CLOTHS) TOP SCH (04:00)
[2016-12-26] MEDS: HYDROmorphone HCL PF 1 MG/ML VIAL IV PUSH PRN ×4 (04:46→20:35)
[2016-12-26] MEDS: metroNIDAZOLE 500 MG INJ 100 ML IV SCH (04:47)
[2016-12-26 05:34] VITALS: BP 117/82; PULSE 101; RESP 18; TEMP 97.8; O2SAT 97
[2016-12-26] MEDS ORDERED: PHARMACY ORDERED LAB ONE (05:45)
[2016-12-26] MEDS: VANCOMYCIN INJ 750 MG in SODIUM CHLOR 0.9% 250 ML INJ 250 ML IV SCH (06:00)
[2016-12-26] MEDS: METHOCARBAMOL 500 MG TAB PO SCH ×3 (06:15→20:34)
[2016-12-26 08:00] VITALS: BP 121/75; PULSE 94; RESP 20; TEMP 97.8; O2SAT 98
[2016-12-26] MEDS: INSULIN NovoLIN REGULAR SUPPLEMENTAL SCALE SQ SCH ×4 (08:00→20:35)
[2016-12-26] MEDS: HYDROmorphone HCL PF 0.5 MG/0.5 ML SYRINGE IV PUSH PRN ×3 (08:31→22:33)
[2016-12-26] MEDS ORDERED: OXYC-103 PO (09:31)
[2016-12-26] MEDS ORDERED: FERR325T20 PO (09:31)
[2016-12-26] MEDS ORDERED: DILA4TAB10 PO (09:31)
[2016-12-26] MEDS ORDERED: FOLI1TAB6 PO (09:31)
[2016-12-26] MEDS ORDERED: THIA100 PO (09:31)
--- NOTE | 2016-12-26 09:31 | HHI.DS ---
Discharge Summary Admission Date Dec 20, 2016 at 06:56 Admitting Diagnosis Diskitis, prevertebral abscesses of the spine, sepsis (1) Spinal abscess ICD Code: M46.20 - Osteomyelitis of vertebra, site unspecified Diagnosis: Principal (2) Gastroesophageal reflux disease ICD Code: K21.9 - Gastro-esophageal reflux disease without esophagitis Diagnosis: Secondary (3) Acute kidney injury ICD Code: N17.9 - Acute kidney failure, unspecified Diagnosis: Principal (4) Thrombocytosis ICD Code: D47.3 - Essential (hemorrhagic) thrombocythemia Diagnosis: Principal (5) Microcytic anemia ICD Code: D50.9 - Iron deficiency anemia, unspecified Diagnosis: Secondary (6) Leukocytosis ICD Code: D72.829 - Elevated white blood cell count, unspecified Diagnosis: Secondary (7) Hyperkalemia ICD Code: E87.5 - Hyperkalemia Diagnosis: Principal (8) Discitis ICD Code: M46.40 - Discitis Diagnosis: Principal Status: Acute (9) Renal failure ICD Code: N19 - Renal failure Diagnosis: Principal Status: Acute (10) Intravenous drug abuse in remission ICD Code: F19.10 - Intravenous drug abuse in remission Diagnosis: Secondary Status: Acute (11) HTN (hypertension) ICD Code: I10 - Essential (primary) hypertension Diagnosis: Secondary Status: Acute (12) Osteomyelitis ICD Code: M86.9 - Osteomyelitis Diagnosis: Principal Status: Acute (13) Tobacco abuse ICD Code: Z72.0 - Tobacco abuse Diagnosis: Principal Status: Acute (14) Pulmonary abscess ICD Code: J85.2 - Abscess of lung without pneumonia Diagnosis: Principal Status: Acute Brief History - From Admission This is a 41-year-old male. Date of admission 12/20/2016. 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 Patient presents to [facility] as a direct transfer from [facility] with the following history. Patient with six-day history of back and hip pain. Patient was noted to have a potassium 5.6, elevated white blood cell count, microcytic anemia and thrombocytosis. MRI of thoracic spine revealed pathologic fractures T5, 6 and 7. Discitis from T5/6 to T7/8. Prevertebral abscess from T4 through T10 9.5 cm craniocaudal. There is right extrapulmonic abscesses noted 2.4 x 1.7 cm in the bilateral abscesses goes posteriorly 2.5 x 2.7 x 2 cm as well. There is a large epidural phlegmon causing spinal stenosis. Patient received vancomycin and piperacillin/tazobactam at outside facility was accepted by Dr. Huitron for Dr. Pickard to evaluate and treat. Currently, patient has complained of pain. Patient has noted open area upper thoracic spine 3 x 3 cm with erythema. No pus visualized currently. Patient has received fentanyl for pain in route. CBC/BMP: 12/25/16 0630 12/25/16 0630 Significant Findings Laboratory Tests Test 12/25/16 06:30 Red Blood Count 4.27 MIL/MM3 (4.50-5.90) Hemoglobin 9.5 GM/DL (13.0-17.0) Hematocrit 29.1 % (39.0-51.0) Mean Corpuscular Volume 68.2 FL (80.0-100.0) Mean Corpuscular Hemoglobin 22.3 PG (27.0-34.0) Red Cell Distribution Width 18.2 % (11.6-17.2) Platelet Count 472 TH/MM3 (150-450) Monocytes (%) (Auto) 8.4 % (0.0-8.0) Calcium Level 8.4 MG/DL (8.5-10.1) Sodium Level 133 MEQ/L (136-145) PE at Discharge GENERAL: 41-year-old male, very skinny, resting in bed in no acute distress SKIN: Warm and dry. Multiple tattoos bilateral upper extremities CARDIOVASCULAR: Tachycardia, RR. S1, S2 no S4. Do not appreciate murmur RESPIRATORY: Clear to auscultation. Breath sounds equal bilaterally. GASTROINTESTINAL: Abdomen soft, non-tender, nondistended. Hepatic and splenic margins not palpable. MUSCULOSKELETAL: Extremities without significant peripheral edema. Noted 3 x 3 open abscess/erythema with good granulation tissue over around T2/3 thoracic spine NEUROLOGICAL: Awake and alert. No obvious cranial nerve deficits. Motor grossly within normal limits. Five out of 5 muscle strength in the arms and legs. Normal speech. Ariadna Sotomayor MD Dec 26, 2016 09:31
[2016-12-26] MEDS: DOCUSATE SODIUM 50 MG/SENNA 8.6 MG TAB PO SCH ×2 (09:38→20:34)
[2016-12-26] MEDS: oxyCODONE HCL 40 MG CONTROLLED RELEASE TAB PO SCH ×2 (09:38→20:35)
[2016-12-26] MEDS: THIAMINE HCL 100 MG TAB PO SCH (09:38)
[2016-12-26] MEDS: PANTOPRAZOLE SOD 40 MG DELAYED RELEASE TAB PO SCH (09:38)
[2016-12-26] MEDS: FOLIC ACID 1 MG TAB PO SCH (09:38)
[2016-12-26] MEDS: MULTIVITAMIN TAB PO SCH (09:38)
[2016-12-26] MEDS: CEFEPIME INJ 2,000 MG in SODIUM CHLORIDE 0.9% INJ 100 ML IV SCH (09:40)
--- NOTE | 2016-12-26 09:42 | HHI.PR ---
Subjective Remarks In bed he did refused PT yesterday. Patient says he will walk with PT today. No fever or chills. Pain is fairly controlled by meds. Says she has no home . No n/ v/d/c. appetitie is better. Also discussed with Id specialist and neurosurgery. Objective Vitals Vital Signs Date Time Temp Pulse Resp B/P (MAP) Pulse Ox O2 Delivery O2 Flow Rate FiO2 12/26/16 08:00 97.8 94 20 121/75 (90) 98 12/26/16 05:34 97.8 101 18 117/82 (94) 97 12/25/16 20:49 98.3 101 20 112/77 (89) 98 12/25/16 16:45 97.9 93 20 125/74 (91) 98 12/25/16 12:01 98.7 98 20 116/75 (89) 97 I/O 12/25/16 12/25/16 12/25/16 12/26/16 12/26/16 12/26/16 07:00 15:00 23:00 07:00 15:00 23:00 Intake Total 340 ml 1290 ml 100 ml Output Total 500 ml 870 ml 300 ml Balance -160 ml 420 ml -200 ml Intake Oral 240 ml 940 ml IV Total 100 ml 350 ml 100 ml Output Urine Total 500 ml 870 ml 300 ml # Bowel Movements 0 Result Diagram: 12/25/16 0630 12/25/16 0630 Imaging Last Impressions Chest CT 12/21/16 0000 Signed Impressions: Service Date/Time: December 11:52 - CONCLUSION: 1. Abnormal paraspinal fluid and soft tissue containing gas highly suspicious for a paraspinal abscess. This finding is similar distribution but decreased from the prior exam. It extends from approximately T3-T8. 2. There is an open wound on the midline back with contiguous subcutaneous air collection which extends to the area of prior laminectomy. There is a small amount of air within the spinal canal, likely in the epidural space. 3. Focal airspace consolidation in the right lower lobe with partial cavitation measuring approximately 2.3 x 1.1 cm. There was an area of consolidation on the prior examination and in identical location. However, it has decreased in size from the prior study. 4. Stable sclerosis and partial destruction of what is thought to be the T7 vertebral body. 5. Small bilateral pleural effusions. Roshan Galvez MD Abscess Drainage CT 12/21/16 0000 Signed Impressions: Service Date/Time: December 12:17 - CONCLUSION: Uncomplicated CT guided aspiration of the paraspinal fluid collection. I was only able to aspirate approximately 1-2 cc of reddish foul-smelling fluid. The sample was saved and sent to the lab for microbiological analysis. Roshan Galvez MD Chest X-Ray 12/20/16 0000 Signed Impressions: Service Date/Time: Tuesday, December 20, 2016 07:45 - CONCLUSION: Underinflation with atelectasis at the lung bases. Otherwise, no acute finding is appreciated. Roshan Galvez MD Objective Remarks GENERAL: 41-year-old male, very skinny, resting in bed in no acute distress. Bitemporal waisting. SKIN: Warm and dry. Multiple tattoos bilateral upper extremities CARDIOVASCULAR: Tachycardia, RR. S1, S2 no S4. Do not appreciate murmur RESPIRATORY: Clear to auscultation. Breath sounds equal bilaterally. GASTROINTESTINAL: Abdomen soft, non-tender, nondistended. Hepatic and splenic margins not palpable. MUSCULOSKELETAL: Extremities without significant peripheral edema. Noted 3 x 3 open abscess/erythema with good granulation tissue over around T2/3 thoracic spine NEUROLOGICAL: Awake and alert. No obvious cranial nerve deficits. Motor grossly within normal limits. Five out of 5 muscle strength in the arms and legs. Normal speech. 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 - Osteomyelitis of vertebra, site unspecified (2) Gastroesophageal reflux disease ICD Code: K21.9 - Gastro-esophageal reflux disease without esophagitis (3) Acute kidney injury ICD Code: N17.9 - Acute kidney failure, unspecified (4) Thrombocytosis ICD Code: D47.3 - Essential (hemorrhagic) thrombocythemia (5) Microcytic anemia ICD Code: D50.9 - Iron deficiency anemia, unspecified (6) Leukocytosis ICD Code: D72.829 - Elevated white blood cell count, unspecified (7) Hyperkalemia ICD Code: E87.5 - Hyperkalemia (8) Discitis ICD Code: M46.40 - Discitis Status: Acute (9) Renal failure ICD Code: N19 - Renal failure Status: Acute (10) Intravenous drug abuse in remission ICD Code: F19.10 - Intravenous drug abuse in remission Status: Acute (11) HTN (hypertension) ICD Code: I10 - Essential (primary) hypertension Status: Acute (12) Osteomyelitis ICD Code: M86.9 - Osteomyelitis Status: Acute (13) Tobacco abuse ICD Code: Z72.0 - Tobacco abuse Status: Acute (14) Pulmonary abscess ICD Code: J85.2 - Abscess of lung without pneumonia Status: Acute Assessment and Plan Neuro/Psych: T5/6 through T7/8 discitis Pathologic fractures T5, 6 and 7. 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 On percocet per pain sclae 1-5 , dilaudid for pain 6-10 and add dilaudid 0.5 for breakthrough pain . Will consult palliative care for bass management. Previously OxyContin 40 mg twice a day with Dilaudid 4 mg every 4 hours when necessary breakthrough pain Currently on amitriptyline 25 mg a night for depression Thiamine, multivitamin and folate daily Neurosurgery/Dr. Pickard consulted CV: Sinus tachycardia 2-D echocardiogram 05/29 revealed EF 55-60%. No regional wall motion abnormality. Currently normal saline at 84 cc an hour. Resp: Tobaccoism Nasal cannula to maintain saturations greater than or equal to 92% Incentive spirometry while awake As needed albuterol aerosols Chest x-ray 12/20 revealed no acute findings GI: Regular diet Pantoprazole 40 mg daily for GI prophylaxis Docusate sodium/senna 1 tablet twice daily for bowel regimen Follow-up liver function tests : History of suprapubic catheter Currently no acute issues Endo: Sliding-scale insulin if indicated to maintain euglycemia Renal: Acute kidney injury - resolved Monitor urine output Accurate I's and O's Currently on normal saline at 84 cc an hour Repeat labs in a.m. Heme: Microcytic anemia Check iron studies/ferritin. Patient with iron deficiency anemia. Start ferrous sulfate 325 mg by mouth twice a day. Peripheral smear Hemoccult stool Follow-up CBC in a.m. Severe protein calorie malnutrition, low BMI of 17.6, muscle waiting. 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 Consult change management consultant. ID: Paravertebral abscess Currently on vancomycin/cefepime 12/20 - Blood cultures 2 no growth. Wound culture with staph aureus Infectious disease consultation appreciated with Dr. Cruz. Awaiting follow- up Mycobacterium abscesses cultures. S/P paravertebral abscess aspiration by IR on 12/22/16 with 2 cc of foul smelling red fluid. Cultures staph Aureus pansensitive. ID specialist also ff. MSK: PT evaluate and treat Severe Protein calorie malnutrition BMI of 78, low albumin of 1.7. He can repeat, muscle wasting. Bitemporal wasting. 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 Access - Utilize peripheral IV. Central line if indicated Prophylaxis - GI - pantoprazole - DVT - SCD/holding pharmacological prophylaxis in light of possible surgical intervention Consult PT and OT Discussed with the patient, nurse DC plan: difficult DC , discussed with [facility] case management. Plan to DC to SNF. CM ff for DC plan as well. Patient will need wound care, PT, IV antibiotic and pain management at DC. To follow up as Op with PCP and consultants. Problem Qualifiers (1) Gastroesophageal reflux disease: Qualified Codes: K21.9 - Gastro-esophageal reflux disease without esophagitis (2) Leukocytosis: Qualified Codes: D72.829 - Elevated white blood cell count, unspecified (3) Discitis: Qualified Codes: M46.44 - Discitis, unspecified, thoracic region (4) Renal failure: Qualified Codes: N17.9 - Acute kidney failure, unspecified; N18.9 - Chronic kidney disease, unspecified (5) HTN (hypertension): Qualified Codes: I10 - Essential (primary) hypertension (6) Osteomyelitis: Qualified Codes: M86.8X0 - Other osteomyelitis, multiple sites (7) Pulmonary abscess: Qualified Codes: J85.2 - Abscess of lung without pneumonia Ariadna Sotomayor MD Dec 26, 2016 09:42
[2016-12-26] MEDS: SODIUM CHLORIDE 0.9% FLUSH 10 ML FLUSH IV FLUSH SCH ×2 (09:43→20:35)
--- NOTE | 2016-12-26 10:03 | HHI.NSPN ---
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 He was most recently seen in May 2016 when he presented with a thoracic osteomyelitis-discitis with paraspinous abscess and underwent a T4-5 laminectomy, evacuation abscess. Cultures grew mycobacterium abscessus, for which he was placed on IV antibiotic treatment initially . He returned in June 2016 with persistent/recurrent infection, having been noncompliant with the IV treatment. He was placed on oral medication including Biaxine, which he was also noncompliant with. He states that he was feeling relatively well until a week ago when he developed right hip pain. He has had a previous ORIF of the right hip but states that it usually does not bother him. 2 days ago he noted a cutaneous infection in the mid thoracic region and went to [facility] emergency room for evaluation. He states that he was released and told to come to [place] for further treatment. He has noted drainage from the infection site in the past 1-2 days. He denies any fevers or chills. He complains of a productive cough or couple of weeks. No definite bowel or bladder dysfunction. He states that he has been able ambulate well without any definite numbness in the extremities except for the right hip. 12/26: The patient this morning is awake and alert when seen. He complains of back and right hip pain. He denies any numbness or tingling to the extremities. (Darrion Garcia) System Review Comments MUSCULOSKELETAL: Back pain. Right hip pain. (Darrion Garcia) Exam Results 12/24/16 12/24/16 12/25/16 12/25/16 12/26/16 12/26/16 06:00 18:00 06:00 18:00 06:00 18:00 Intake Total 1165 ml 300 ml 540 ml 1390 ml Output Total 1100 ml 500 ml 870 ml 300 ml Balance 65 ml 300 ml 40 ml 520 ml -300 ml Intake Oral 1065 ml 240 ml 940 ml IV Total 100 ml 300 ml 300 ml 450 ml Output Urine Total 1100 ml 500 ml 870 ml 300 ml # Bowel Movements 0 0 Vital Signs Date Time Temp Pulse Resp B/P (MAP) Pulse Ox O2 Delivery O2 Flow Rate FiO2 12/26/16 08:00 97.8 94 20 121/75 (90) 98 12/26/16 05:34 97.8 101 18 117/82 (94) 97 12/25/16 20:49 98.3 101 20 112/77 (89) 98 12/25/16 16:45 97.9 93 20 125/74 (91) 98 12/25/16 12:01 98.7 98 20 116/75 (89) 97 12/25/16 04:42 97.7 96 18 108/79 (89) 98 12/25/16 01:31 98.5 106 17 100/67 (78) 98 12/24/16 21:25 98.7 101 20 116/76 (89) 98 12/24/16 16:00 97 12/24/16 16:00 97.8 97 20 96/65 (75) 96 12/24/16 14:00 96 12/24/16 13:50 18 12/24/16 12:00 98.0 94 13 110/77 (88) 94 12/24/16 12:00 96 12/24/16 10:00 104 13 116/86 (96) 97 12/24/16 10:00 104 12/24/16 09:24 18 12/24/16 09:00 115 18 111/80 (90) 96 12/24/16 08:00 97.8 97 39 119/83 (95) 97 12/24/16 08:00 97 12/24/16 06:00 92 12/24/16 04:00 98.1 99 40 92/67 (75) 97 12/24/16 04:00 90 12/24/16 02:00 95 12/24/16 00:00 102 12/24/16 00:00 98.4 96 19 82/58 (66) 94 12/23/16 22:00 100 12/23/16 20:00 98.3 102 20 120/87 (98) 98 12/23/16 20:00 94 12/23/16 19:43 96 21 12/23/16 18:00 103 12/23/16 16:00 95 12/23/16 16:00 98.5 95 17 112/74 (87) 96 12/23/16 14:00 97 12/23/16 12:00 99 12/23/16 12:00 98.4 99 15 89/61 (70) 94 12/23/16 10:00 107 (Darrion Garcia) Physical Examination GENERAL: Thin male who appears uncomfortable, affect flat, no distress noted. SKIN: Intact dressing to wound dehiscence, no evident drainage, erythema or streaking. NECK: Midline cervical spine NTTP, no JVD, trachea midline. MUSCULOSKELETAL: JENKINS w/o difficulty. Right hip TTP posteriorly & laterally. Upper thoracic spine TTP and remainder of thoracolumbar spine minimally TTP. NEUROLOGICAL: AAOx3. Speech clear & appropriate. Follows simple commands w/o difficulty. Sensation intact to light touch to all extremities. Motor strength is 5/5 to all major flexion & extension muscle groups. (Darrion Garcia) Lab, Micro, Other Results Laboratory Tests Test 12/25/16 06:30 White Blood Count 5.9 TH/MM3 Red Blood Count 4.27 MIL/MM3 Hemoglobin 9.5 GM/DL Hematocrit 29.1 % Mean Corpuscular Volume 68.2 FL Mean Corpuscular Hemoglobin 22.3 PG Mean Corpuscular Hemoglobin Concent 32.8 % Red Cell Distribution Width 18.2 % Platelet Count 472 TH/MM3 Mean Platelet Volume 7.6 FL Neutrophils (%) (Auto) 61.0 % Lymphocytes (%) (Auto) 26.6 % Monocytes (%) (Auto) 8.4 % Eosinophils (%) (Auto) 2.8 % Basophils (%) (Auto) 1.2 % Neutrophils # (Auto) 3.6 TH/MM3 Lymphocytes # (Auto) 1.6 TH/MM3 Monocytes # (Auto) 0.5 TH/MM3 Eosinophils # (Auto) 0.2 TH/MM3 Basophils # (Auto) 0.1 TH/MM3 CBC Comment DIFF FINAL Differential Comment Blood Urea Nitrogen 16 MG/DL Creatinine 0.78 MG/DL Random Glucose 90 MG/DL Calcium Level 8.4 MG/DL Sodium Level 133 MEQ/L Potassium Level 4.1 MEQ/L Chloride Level 99 MEQ/L Carbon Dioxide Level 27.6 MEQ/L Anion Gap 6 MEQ/L Estimat Glomerular Filtration Rate 109 ML/MIN (Darrion Garcia) Medical Decision Making Impression and Plan Impression: 1. Persistent T4-5-6 level discitis-osteomyelitis, paraspinous abscess with new area of subcutaneous abscess and adjacent wound dehiscence. MRI thoracic & lumbar spine demonstrated chronic T5-6-7 fractures with T4-5-6 discitis and paraspinous inflammation-abscess with extension towards the right lung. Findings are relatively stable compared to previous imaging studies from May and June 2016, however there is now a subcutaneous fluid collection present at the T4-6 level. No evidence of any new spinal instability. Patient continues to have back pain, neurologically intact. Plan: Plan of care discussed with patient. Plan of care discussed with Hospitalist. Antibiotics per Infectious Disease. Mobilise patient, no brace required when OOB. No twisting, reaching, bending, pushing, pulling or other strenuous activity. (Darrion Garcia) Attending Statement The exam, history, and the medical decision-making described in the above note were completed with the assistance of the mid-level provider. I reviewed and agree with the findings presented. I attest that I had a [id number] encounter with the patient on the same day, and personally performed and documented my assessment and findings in the medical record. No change in symptoms or neurologic examination. Imaging studies reviewed. Infectious disease note reviewed. No neurosurgical intervention planned at this point. Continue IV antibiotics. He could be followed up as an outpatient from neurosurgical standpoint (Jeffry Pickard MD) Darrion Garcia Dec 26, 2016 10:03 Jeffry Pickard MD Dec 27, 2016 20:20
--- NOTE | 2016-12-26 10:41 | HHI.PR ---
Addendum to Inpatient Note Additional Information pt will need to have 8-12 weeks of IV abx folllowed by PO corinne Pickard - no hardware remaining Britney Cruz MD Dec 26, 2016 10:41
[2016-12-26] MEDS: oxyCODONE/ACETAMINOPHEN 10 MG/325 MG TAB PO PRN (11:39)
[2016-12-26] MEDS: ceFAZolin 2 GM PREMIX 50 ML IV SCH ×2 (11:39→18:26)
[2016-12-26] MEDS: FERROUS SULFATE 325 MG (65 MG ELEMENTAL IRON) TAB PO SCH ×2 (11:39→18:26)
[2016-12-26 12:46] VITALS: BP 121/80; PULSE 105; RESP 20; TEMP 97.7; O2SAT 98
[2016-12-26 16:10] VITALS: BP 115/87; PULSE 108; RESP 20; TEMP 97.8; O2SAT 97
--- NOTE | 2016-12-26 18:07 | HHI.PR ---
Addendum to Inpatient Note Additional Information pt seen today around 1630 pm full note to follow Back wound with large amount of pus change abx to Ancef anticipate long course of IV abx PICC Britney Cruz MD Dec 26, 2016 18:07
[2016-12-26 20:00] VITALS: BP 120/82; PULSE 99; RESP 18; TEMP 98.3; O2SAT 99
[2016-12-26] MEDS: AMITRIPTYLINE HCL 25 MG TAB PO SCH (20:34)
--- NOTE | 2016-12-26 23:27 | HHI.IDPN ---
Subjective Subjective Remarks pt seen today around 1630 pm this is a delayed entry R hip is still painful Antibiotics vanco CFTX Past Medical History IVDU chronic vertebral osteo Allergies: Coded Allergies: aspirin (Unverified Allergy, Severe, 12/20/16) PATIENT STATES HE HAD A HOLE IN HIS HEART WHEN HE WAS BORN AND HE WAS TOLD NOT TO TAKE ASPIRIN. CARE HOME MAR STATES NO KNOWN ALLERGIES PATIENT DENIES ALLERGY TO ASPIRIN. 04/01/13 Objective . Vital Signs Date Time Temp Pulse Resp B/P (MAP) Pulse Ox O2 Delivery O2 Flow Rate FiO2 12/26/16 20:00 98.3 99 18 120/82 (95) 99 12/26/16 16:10 97.8 108 20 115/87 (96) 97 12/26/16 13:03 18 12/26/16 12:46 97.7 105 20 121/80 (94) 98 12/26/16 12:39 19 12/26/16 10:38 18 12/26/16 09:01 17 12/26/16 08:00 97.8 94 20 121/75 (90) 98 12/26/16 05:34 97.8 101 18 117/82 (94) 97 12/26/16 12/26/16 12/27/16 15:00 23:00 07:00 Intake Total 970 ml Output Total 1500 ml Balance -530 ml Intake Oral 720 ml IV Total 250 ml Output Urine Total 1500 ml . Laboratory Tests Test 12/25/16 06:30 White Blood Count 5.9 TH/MM3 Red Blood Count 4.27 MIL/MM3 Hemoglobin 9.5 GM/DL Hematocrit 29.1 % Mean Corpuscular Volume 68.2 FL Mean Corpuscular Hemoglobin 22.3 PG Mean Corpuscular Hemoglobin Concent 32.8 % Red Cell Distribution Width 18.2 % Platelet Count 472 TH/MM3 Mean Platelet Volume 7.6 FL Neutrophils (%) (Auto) 61.0 % Lymphocytes (%) (Auto) 26.6 % Monocytes (%) (Auto) 8.4 % Eosinophils (%) (Auto) 2.8 % Basophils (%) (Auto) 1.2 % Neutrophils # (Auto) 3.6 TH/MM3 Lymphocytes # (Auto) 1.6 TH/MM3 Monocytes # (Auto) 0.5 TH/MM3 Eosinophils # (Auto) 0.2 TH/MM3 Basophils # (Auto) 0.1 TH/MM3 CBC Comment DIFF FINAL Differential Comment Laboratory Tests Test 12/25/16 06:30 Blood Urea Nitrogen 16 MG/DL Creatinine 0.78 MG/DL Random Glucose 90 MG/DL Calcium Level 8.4 MG/DL Sodium Level 133 MEQ/L Potassium Level 4.1 MEQ/L Chloride Level 99 MEQ/L Carbon Dioxide Level 27.6 MEQ/L Anion Gap 6 MEQ/L Estimat Glomerular Filtration Rate 109 ML/MIN Imaging Last Impressions Chest CT 12/21/16 0000 Signed Impressions: Service Date/Time: December 11:52 - CONCLUSION: 1. Abnormal paraspinal fluid and soft tissue containing gas highly suspicious for a paraspinal abscess. This finding is similar distribution but decreased from the prior exam. It extends from approximately T3-T8. 2. There is an open wound on the midline back with contiguous subcutaneous air collection which extends to the area of prior laminectomy. There is a small amount of air within the spinal canal, likely in the epidural space. 3. Focal airspace consolidation in the right lower lobe with partial cavitation measuring approximately 2.3 x 1.1 cm. There was an area of consolidation on the prior examination and in identical location. However, it has decreased in size from the prior study. 4. Stable sclerosis and partial destruction of what is thought to be the T7 vertebral body. 5. Small bilateral pleural effusions. Roshan Galvez MD Abscess Drainage CT 12/21/16 0000 Signed Impressions: Service Date/Time: December 12:17 - CONCLUSION: Uncomplicated CT guided aspiration of the paraspinal fluid collection. I was only able to aspirate approximately 1-2 cc of reddish foul-smelling fluid. The sample was saved and sent to the lab for microbiological analysis. Roshan Galvez MD Chest X-Ray 12/20/16 0000 Signed Impressions: Service Date/Time: Tuesday, December 20, 2016 07:45 - CONCLUSION: Underinflation with atelectasis at the lung bases. Otherwise, no acute finding is appreciated. Roshan Galvez MD Physical Exam CONSTITUTIONAL/GENERAL: This is an undernourished chronically ill appearing patient, in no apparent distress. TUBES/LINES/DRAINS: SKIN: No jaundice, rashes, or lesions. Skin temperature appropriate. Not diaphoretic. CARDIOVASCULAR: Regular rate and rhythm without murmurs, gallops, or rubs. No JVD. Peripheral pulses symmetric. RESPIRATORY/CHEST: Symmetric, unlabored respirations. Clear to auscultation. Breath sounds equal bilaterally. No wheezes, rales, or rhonchi. GASTROINTESTINAL: Abdomen soft, non-tender, nondistended. No hepato-splenomegaly , or palpable masses. No guarding. Bowel sounds present. GENITOURINARY: Without palpable bladder distension. MUSCULOSKELETAL: Extremities without clubbing, cyanosis, or edema. Muscle bulk wastin BLE No calf tenderness. No mottling or clubbing. BACK: Kyphotic deformity of thoraci spine Back wound with large amount of odorless barnes colored pus NEUROLOGICAL: Awake and alert. Motor and sensory grossly within normal limits. Follows commands. Clear speech . Moves all extremities. PSYCHIATRIC: Calm. no apparent hallucinations or other psychotic thought process. Assessment & Plan Remarks Chronic vertebral osteo, recurring epidural abscess, M. abscess, MSSA pathologic fractures T5, 6 and 7. Discitis from T5/6 to T7/8. Prevertebral abscess from T4 through T10 9.5 cm craniocaudal. sp drainage - clx P Right extrapulmonic abscesses noted 2.4 x 1.7 cm in the bilateral abscesses goes posteriorly 2.5 x 2.7 x 2 cm as well. Large epidural phlegmon causing spinal stenosis R hip pain with h/o ORIF HIV TOSIN + last on/conferm neageitv Rec'sd: cont cefazoline dc Flafyl HIV TOSIN (Ppt was counsaellledand is agreable fu abscess culture result send AFB clx after CT guided draianage cultures are obtained will adjust Rx based obn previous M. abscess clx/ S Britney Cruz MD Dec 26, 2016 23:27
[2016-12-27 01:00] VITALS: BP 118/63; PULSE 98; RESP 20; TEMP 98.7; O2SAT 97
[2016-12-27] MEDS: ceFAZolin 2 GM PREMIX 50 ML IV SCH ×3 (02:31→18:16)
[2016-12-27] MEDS: HYDROmorphone HCL PF 1 MG/ML VIAL IV PUSH PRN ×6 (02:31→22:33)
[2016-12-27] MEDS: HYDROmorphone HCL PF 0.5 MG/0.5 ML SYRINGE IV PUSH PRN ×5 (03:27→20:39)
[2016-12-27] MEDS: CHLORHEXIDINE GLUCONATE 2 % 1 PACK (2 CLOTHS) TOP SCH (03:29)
[2016-12-27 03:59] VITALS: PULSE 92
[2016-12-27] MEDS: METHOCARBAMOL 500 MG TAB PO SCH ×3 (06:25→20:46)
[2016-12-27] MEDS: DOCUSATE SODIUM 50 MG/SENNA 8.6 MG TAB PO SCH ×2 (07:42→20:38)
[2016-12-27] MEDS: THIAMINE HCL 100 MG TAB PO SCH (07:42)
[2016-12-27] MEDS: PANTOPRAZOLE SOD 40 MG DELAYED RELEASE TAB PO SCH (07:42)
[2016-12-27] MEDS: FOLIC ACID 1 MG TAB PO SCH (07:42)
[2016-12-27] MEDS: oxyCODONE HCL 40 MG CONTROLLED RELEASE TAB PO SCH ×2 (07:42→20:38)
[2016-12-27] MEDS: MULTIVITAMIN TAB PO SCH (07:42)
[2016-12-27] MEDS: INSULIN NovoLIN REGULAR SUPPLEMENTAL SCALE SQ SCH ×4 (07:48→20:39)
[2016-12-27 08:00] VITALS: BP 121/85; PULSE 103; RESP 18; TEMP 97.3; O2SAT 99
[2016-12-27] MEDS ORDERED: DIAZEPAM 2 MG TAB PO ONE (11:15)
[2016-12-27 12:00] VITALS: BP 107/81; PULSE 94; RESP 16; TEMP 98.4; O2SAT 95
[2016-12-27] MEDS: FERROUS SULFATE 325 MG (65 MG ELEMENTAL IRON) TAB PO SCH ×2 (12:16→16:23)
[2016-12-27] MEDS ORDERED: GADODIAMIDE PF 287 MG/ML 10 ML VIAL (for RAD MRI) IVCONTRAST ONE (12:30)
[2016-12-27] MEDS: SODIUM CHLORIDE 0.9% FLUSH 10 ML FLUSH IV FLUSH SCH ×2 (14:34→20:39)
--- NOTE | 2016-12-27 14:48 | RADRPT ---
EXAM DATE/TIME: 12/27/2016 12:44 [facility] COMPARISON: MRI THORACIC SPINE W & W/O CONTRAST, May 24, 2016, 10:40. INDICATIONS : Osteomyelitis. CONTRAST: 10 cc Omniscan (gadodiamide) IV MEDICAL HISTORY : Hepatitis C. Hypertension. Osteomyelitis. SURGICAL HISTORY : Multiple thoracic spine surgeries. ENCOUNTER: Subsequent ACUITY: > 1 year PAIN SCORE: 6/10 LOCATION: mid back. TECHNIQUE: Multiplanar multisequence MRI of the thoracic spine was performed. FINDINGS: There has been considerable change in the appearance from the prior study. There are changes once aga in seen consistent with discitis/osteomyelitis within the mid thoracic levels. Since the previous exa mination there has been interval complete obscuration of the disc spaces extending from T4-T7. There is also been near-complete collapse of the T5 and T6 vertebral bodies. The T4 and T7 vertebral bodies show a slight decrease in height. These levels also show abnormal signal as well as enhancement. The paraspinal fluid collections anteriorly have decreased considerably in size. A small fluid collectio n remains tracking anteriorly to extending 7.1 cm in a cranial to caudal dimension where previously m easured 1.7 cm in this dimension. It measures 2.4 cm anterior to posterior and 2.1 cm and a mediolate ral dimension. Posteriorly within the paraspinal soft tissues and extending to the right lateral and posterior lateral epidural space is enhancing fluid collection that is new from the prior study. This measures 3.8 x 3.1 x 1.1 cm. It shows peripheral rim enhancement. This is consistent with an abscess . Postsurgical changes are seen involving the posterior elements involving the previous described lev els. There is a focal kyphosis centered at the T7-T8 level. This is unchanged. 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 CONCLUSION: 1. When compared to the prior study there has been progression in the discitis/osteomyelitis with wor sening osteomyelitis extending from T4-T7 and development of a new epidural abscess that extends into the paraspinal soft tissues posteriorly. The anterior paraspinal fluid collection is smaller from th e prior study. Gopal Cates Jr., MD on December 27, 2016 at 14:33 Board Certified Radiologist. This report was verified electronically.
[2016-12-27 16:00] VITALS: BP 117/80; PULSE 114; RESP 18; TEMP 98.4; O2SAT 98
--- NOTE | 2016-12-27 17:03 | HHI.PR ---
Subjective Remarks The patient seen earlier today. He complains of back pain, fairly controlled by pain medications. No fever or chills overnight. He is not able to ambulate much physical therapy. PT recommends rehabilitation. Eating fairly well, he likes sure the regular one. Appetite is coming back. Objective Vitals Vital Signs Date Time Temp Pulse Resp B/P (MAP) Pulse Ox O2 Delivery O2 Flow Rate FiO2 12/27/16 14:59 17 12/27/16 12:46 20 12/27/16 08:42 29 12/27/16 08:00 97.3 103 18 121/85 (97) 99 12/27/16 01:00 98.7 98 20 118/63 (81) 97 12/26/16 20:00 98.3 99 18 120/82 (95) 99 I/O 12/26/16 12/26/16 12/26/16 12/27/16 12/27/16 12/27/16 07:00 15:00 23:00 07:00 15:00 23:00 Intake Total 970 ml 50 ml Output Total 1500 ml 1000 ml Balance -530 ml -950 ml Intake Oral 720 ml IV Total 250 ml 50 ml Output Urine Total 1500 ml 1000 ml Result Diagram: 12/25/1630 12/25/16 0630 Imaging Last Impressions Thoracic Spine MRI 12/27/16 0000 Signed Impressions: Service Date/Time: Tuesday, December 27, 2016 12:44 - CONCLUSION: 1. When compared to the prior study there has been progression in the discitis/osteomyelitis with worsening osteomyelitis extending from T4-T7 and development of a new epidural abscess that extends into the paraspinal soft tissues posteriorly. The anterior paraspinal fluid collection is smaller from the prior study. Gopal Cates Jr., MD Chest CT 12/21/16 0000 Signed Impressions: Service Date/Time: December 11:52 - CONCLUSION: 1. Abnormal paraspinal fluid and soft tissue containing gas highly suspicious for a paraspinal abscess. This finding is similar distribution but decreased from the prior exam. It extends from approximately T3-T8. 2. There is an open wound on the midline back with contiguous subcutaneous air collection which extends to the area of prior laminectomy. There is a small amount of air within the spinal canal, likely in the epidural space. 3. Focal airspace consolidation in the right lower lobe with partial cavitation measuring approximately 2.3 x 1.1 cm. There was an area of consolidation on the prior examination and in identical location. However, it has decreased in size from the prior study. 4. Stable sclerosis and partial destruction of what is thought to be the T7 vertebral body. 5. Small bilateral pleural effusions. Roshan Galvez MD Abscess Drainage CT 12/21/16 0000 Signed Impressions: Service Date/Time: December 12:17 - CONCLUSION: Uncomplicated CT guided aspiration of the paraspinal fluid collection. I was only able to aspirate approximately 1-2 cc of reddish foul-smelling fluid. The sample was saved and sent to the lab for microbiological analysis. Roshan Galvez MD Chest X-Ray 12/20/16 0000 Signed Impressions: Service Date/Time: Tuesday, December 20, 2016 07:45 - CONCLUSION: Underinflation with atelectasis at the lung bases. Otherwise, no acute finding is appreciated. Roshan Galvez MD Objective Remarks GENERAL: 41-year-old male, very skinny, resting in bed in no acute distress. Bitemporal waisting. SKIN: Warm and dry. Multiple tattoos bilateral upper extremities CARDIOVASCULAR: Tachycardia, RR. S1, S2 no S4. Do not appreciate murmur RESPIRATORY: Clear to auscultation. Breath sounds equal bilaterally. GASTROINTESTINAL: Abdomen soft, non-tender, nondistended. Hepatic and splenic margins not palpable. MUSCULOSKELETAL: Extremities without significant peripheral edema. Noted 3 x 3 open abscess/erythema with good granulation tissue over around T2/3 thoracic spine NEUROLOGICAL: Awake and alert. No obvious cranial nerve deficits. Motor grossly within normal limits. Five out of 5 muscle strength in the arms and legs. Normal speech. 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 - Osteomyelitis of vertebra, site unspecified (2) Gastroesophageal reflux disease ICD Code: K21.9 - Gastro-esophageal reflux disease without esophagitis (3) Acute kidney injury ICD Code: N17.9 - Acute kidney failure, unspecified (4) Thrombocytosis ICD Code: D47.3 - Essential (hemorrhagic) thrombocythemia (5) Microcytic anemia ICD Code: D50.9 - Iron deficiency anemia, unspecified (6) Leukocytosis ICD Code: D72.829 - Elevated white blood cell count, unspecified (7) Hyperkalemia ICD Code: E87.5 - Hyperkalemia (8) Discitis ICD Code: M46.40 - Discitis Status: Acute (9) Renal failure ICD Code: N19 - Renal failure Status: Acute (10) Intravenous drug abuse in remission ICD Code: F19.10 - Intravenous drug abuse in remission Status: Acute (11) HTN (hypertension) ICD Code: I10 - Essential (primary) hypertension Status: Acute (12) Osteomyelitis ICD Code: M86.9 - Osteomyelitis Status: Acute (13) Tobacco abuse ICD Code: Z72.0 - Tobacco abuse Status: Acute (14) Pulmonary abscess ICD Code: J85.2 - Abscess of lung without pneumonia Status: Acute Assessment and Plan Neuro/Psych: T5/6 through T7/8 discitis Pathologic fractures T5, 6 and 7. 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 On percocet per pain sclae 1-5 , dilaudid for pain 6-10 and add dilaudid 0.5 for breakthrough pain . Will consult palliative care for bass management. Previously OxyContin 40 mg twice a day with Dilaudid 4 mg every 4 hours when necessary breakthrough pain Currently on amitriptyline 25 mg a night for depression Thiamine, multivitamin and folate daily Neurosurgery/Dr. Pickard consulted, ff CV: Sinus tachycardia 2-D echocardiogram 05/29 revealed EF 55-60%. No regional wall motion abnormality. Currently normal saline at 84 cc an hour. Resp: Tobaccoism Nasal cannula to maintain saturations greater than or equal to 92% Incentive spirometry while awake As needed albuterol aerosols Chest x-ray 12/20 revealed no acute findings GI: Regular diet Pantoprazole 40 mg daily for GI prophylaxis Docusate sodium/senna 1 tablet twice daily for bowel regimen Follow-up liver function tests : History of suprapubic catheter Currently no acute issues Endo: Sliding-scale insulin if indicated to maintain euglycemia Renal: Acute kidney injury - resolved Monitor urine output Accurate I's and O's Currently on normal saline at 84 cc an hour Repeat labs in a.m. Heme: Microcytic anemia Check iron studies/ferritin. Patient with iron deficiency anemia. Start ferrous sulfate 325 mg by mouth twice a day. Peripheral smear Hemoccult stool Follow-up CBC in a.m. Severe protein calorie malnutrition, low BMI of 17.6, muscle waiting. bitemporal waisting, weak hand staff internist office based only. 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 Consult building operator. ID: Paravertebral abscess Currently on vancomycin/cefepime 12/20 - Blood cultures 2 no growth. Wound culture with staph aureus Infectious disease consultation appreciated with Dr. Cruz. Awaiting follow- up Mycobacterium abscesses cultures. S/P paravertebral abscess aspiration by IR on 12/22/16 with 2 cc of foul smelling red fluid. Cultures staph Aureus pansensitive. ID specialist also ff. Spoke with Dr Mike ID specialist. MRI back 12/27/16 per ID recommendations Back wound with large amount of pus, change abx to Ancef per ID. Anticipate long course of IV abx PICC per ID MSK: PT evaluate and treat Severe Protein calorie malnutrition BMI of 78, low albumin of 1.7. He can repeat, muscle wasting. Bitemporal wasting. 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 Access - Utilize peripheral IV. Central line if indicated Prophylaxis - GI - pantoprazole - DVT - SCD/holding pharmacological prophylaxis in light of possible surgical intervention Consult PT and OT Discussed with the patient, nurse, ID specialist Dr Cruz and neurosurgery DC plan: difficult DC , discussed with [facility] case management. Plan to DC to SNF. CM ff for DC plan as well. Patient will need wound care, PT, IV antibiotic and pain management at DC. To follow up as Op with PCP and consultants. Needs clearance by neurosurgery and ID to arrange abx at DC also Problem Qualifiers (1) Gastroesophageal reflux disease: Qualified Codes: K21.9 - Gastro-esophageal reflux disease without esophagitis (2) Leukocytosis: Qualified Codes: D72.829 - Elevated white blood cell count, unspecified (3) Discitis: Qualified Codes: M46.44 - Discitis, unspecified, thoracic region (4) Renal failure: Qualified Codes: N17.9 - Acute kidney failure, unspecified; N18.9 - Chronic kidney disease, unspecified (5) HTN (hypertension): Qualified Codes: I10 - Essential (primary) hypertension (6) Osteomyelitis: Qualified Codes: M86.8X0 - Other osteomyelitis, multiple sites (7) Pulmonary abscess: Qualified Codes: J85.2 - Abscess of lung without pneumonia Ariadna Sotomayor MD Dec 27, 2016 17:03
--- NOTE | 2016-12-27 19:27 | HHI.IDPN ---
Subjective Subjective Remarks pt co back pain no fever MRI results noted Antibiotics ancef Past Medical History IVDU chronic vertebral osteo Allergies: Coded Allergies: aspirin (Unverified Allergy, Severe, 12/20/16) PATIENT STATES HE HAD A HOLE IN HIS HEART WHEN HE WAS BORN AND HE WAS TOLD NOT TO TAKE ASPIRIN. RESIDENTIAL MAR STATES NO KNOWN ALLERGIES PATIENT DENIES ALLERGY TO ASPIRIN. 04/01/13 Objective . Vital Signs Date Time Temp Pulse Resp B/P (MAP) Pulse Ox O2 Delivery O2 Flow Rate FiO2 12/27/16 16:53 19 12/27/16 16:00 98.4 114 18 117/80 (92) 98 12/27/16 14:59 17 12/27/16 12:00 98.4 94 16 107/81 (90) 95 12/27/16 08:42 29 12/27/16 08:00 97.3 103 18 121/85 (97) 99 12/27/16 01:00 98.7 98 20 118/63 (81) 97 12/26/16 20:00 98.3 99 18 120/82 (95) 99 . Laboratory Tests Test 12/27/16 14:21 Erythrocyte Sedimentation Rate 65 mm/hr Imaging Last Impressions Thoracic Spine MRI 12/27/16 0000 Signed Impressions: Service Date/Time: Tuesday, December 27, 2016 12:44 - CONCLUSION: 1. When compared to the prior study there has been progression in the discitis/osteomyelitis with worsening osteomyelitis extending from T4-T7 and development of a new epidural abscess that extends into the paraspinal soft tissues posteriorly. The anterior paraspinal fluid collection is smaller from the prior study. Gopal Cates Jr., MD Chest CT 12/21/16 0000 Signed Impressions: Service Date/Time: December 11:52 - CONCLUSION: 1. Abnormal paraspinal fluid and soft tissue containing gas highly suspicious for a paraspinal abscess. This finding is similar distribution but decreased from the prior exam. It extends from approximately T3-T8. 2. There is an open wound on the midline back with contiguous subcutaneous air collection which extends to the area of prior laminectomy. There is a small amount of air within the spinal canal, likely in the epidural space. 3. Focal airspace consolidation in the right lower lobe with partial cavitation measuring approximately 2.3 x 1.1 cm. There was an area of consolidation on the prior examination and in identical location. However, it has decreased in size from the prior study. 4. Stable sclerosis and partial destruction of what is thought to be the T7 vertebral body. 5. Small bilateral pleural effusions. Roshan Galvez MD Abscess Drainage CT 12/21/16 0000 Signed Impressions: Service Date/Time: December 12:17 - CONCLUSION: Uncomplicated CT guided aspiration of the paraspinal fluid collection. I was only able to aspirate approximately 1-2 cc of reddish foul-smelling fluid. The sample was saved and sent to the lab for microbiological analysis. Roshan Galvez MD Chest X-Ray 12/20/16 0000 Signed Impressions: Service Date/Time: Tuesday, December 20, 2016 07:45 - CONCLUSION: Underinflation with atelectasis at the lung bases. Otherwise, no acute finding is appreciated. Roshan Galvez MD Physical Exam CONSTITUTIONAL/GENERAL: This is an undernourished chronically ill appearing patient, in no apparent distress. TUBES/LINES/DRAINS: SKIN: No jaundice, rashes, or lesions. Skin temperature appropriate. Not diaphoretic. CARDIOVASCULAR: Regular rate and rhythm without murmurs, gallops, or rubs. No JVD. Peripheral pulses symmetric. RESPIRATORY/CHEST: Symmetric, unlabored respirations. Clear to auscultation. Breath sounds equal bilaterally. No wheezes, rales, or rhonchi. GASTROINTESTINAL: Abdomen soft, non-tender, nondistended. No hepato-splenomegaly , or palpable masses. No guarding. Bowel sounds present. GENITOURINARY: Without palpable bladder distension. MUSCULOSKELETAL: Extremities without clubbing, cyanosis, or edema. Muscle bulk wastin BLE No calf tenderness. No mottling or clubbing. BACK: Kyphotic deformity of thoraci spine Back wound with modorate amount of odorless barnes colored pus NEUROLOGICAL: Awake and alert. Motor and sensory grossly within normal limits. Follows commands. Clear speech . Moves all extremities. PSYCHIATRIC: Calm. no apparent hallucinations or other psychotic thought process. Assessment & Plan Remarks Chronic vertebral osteo, recurring epidural abscess, M. abscess, MSSA pathologic fractures T5, 6 and 7. Discitis from T5/6 to T7/8. Prevertebral abscess from T4 through T10 9.5 cm craniocaudal. 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
[2016-12-27] MEDS: AMITRIPTYLINE HCL 25 MG TAB PO SCH (20:38)
[2016-12-27 21:59] VITALS: BP 104/79; PULSE 112; RESP 18; TEMP 98.1; O2SAT 97
[2016-12-28 01:25] VITALS: BP 110/76; PULSE 101; RESP 16; TEMP 98.2; O2SAT 96
[2016-12-28] MEDS: HYDROmorphone HCL PF 1 MG/ML VIAL IV PUSH PRN ×6 (02:00→22:55)
[2016-12-28] MEDS: ceFAZolin 2 GM PREMIX 50 ML IV SCH ×3 (02:01→18:57)
[2016-12-28] MEDS: CHLORHEXIDINE GLUCONATE 2 % 1 PACK (2 CLOTHS) TOP SCH (02:01)
[2016-12-28] MEDS: HYDROmorphone HCL PF 0.5 MG/0.5 ML SYRINGE IV PUSH PRN ×5 (04:49→21:14)
[2016-12-28 05:56] VITALS: BP 112/76; PULSE 108; RESP 18; TEMP 98; O2SAT 97
[2016-12-28] MEDS: METHOCARBAMOL 500 MG TAB PO SCH ×3 (06:20→21:13)
[2016-12-28] MEDS: INSULIN NovoLIN REGULAR SUPPLEMENTAL SCALE SQ SCH ×4 (08:00→20:55)
[2016-12-28 08:46] VITALS: BP 114/81; PULSE 98; RESP 20; TEMP 97.8; O2SAT 97
[2016-12-28] MEDS: MULTIVITAMIN TAB PO SCH (08:59)
[2016-12-28] MEDS: THIAMINE HCL 100 MG TAB PO SCH (08:59)
[2016-12-28] MEDS: oxyCODONE HCL 40 MG CONTROLLED RELEASE TAB PO SCH ×2 (08:59→20:55)
[2016-12-28] MEDS: DOCUSATE SODIUM 50 MG/SENNA 8.6 MG TAB PO SCH ×2 (08:59→20:55)
[2016-12-28] MEDS: FOLIC ACID 1 MG TAB PO SCH (08:59)
[2016-12-28] MEDS: SODIUM CHLORIDE 0.9% FLUSH 10 ML FLUSH IV FLUSH SCH ×2 (08:59→20:54)
[2016-12-28] MEDS: PANTOPRAZOLE SOD 40 MG DELAYED RELEASE TAB PO SCH (08:59)
[2016-12-28 12:13] VITALS: BP 123/77; PULSE 96; RESP 20; TEMP 98.2; O2SAT 96
[2016-12-28] MEDS: FERROUS SULFATE 325 MG (65 MG ELEMENTAL IRON) TAB PO SCH ×2 (13:05→16:44)
--- NOTE | 2016-12-28 15:10 | HHI.PR ---
Subjective Remarks In bed says she has back pain, was not able to ambulate with PT. No fever or chills. Eating better. No nausea pr vomiting, no diarrhea or constipation. Objective Vitals Vital Signs Date Time Temp Pulse Resp B/P (MAP) Pulse Ox O2 Delivery O2 Flow Rate FiO2 12/28/16 13:35 20 12/28/16 12:13 98.2 96 20 123/77 (92) 96 12/28/16 11:19 20 12/28/16 09:30 20 12/28/16 08:46 97.8 98 20 114/81 (92) 97 12/28/16 05:56 98.0 108 18 112/76 (88) 97 12/28/16 01:25 98.2 101 16 110/76 (87) 96 12/27/16 21:59 98.1 112 18 104/79 (87) 97 12/27/16 16:00 98.4 114 18 117/80 (92) 98 I/O 12/27/16 12/27/16 12/27/16 12/28/16 12/28/16 12/28/16 07:00 15:00 23:00 07:00 15:00 23:00 Intake Total 50 ml Output Total 1000 ml 650 ml Balance -950 ml -650 ml IV Total 50 ml Output Urine Total 1000 ml 650 ml # Bowel Movements 0 Result Diagram: 12/25/1630 12/25/16 0630 Imaging Last Impressions Thoracic Spine MRI 12/27/16 0000 Signed Impressions: Service Date/Time: Tuesday, December 27, 2016 12:44 - CONCLUSION: 1. When compared to the prior study there has been progression in the discitis/osteomyelitis with worsening osteomyelitis extending from T4-T7 and development of a new epidural abscess that extends into the paraspinal soft tissues posteriorly. The anterior paraspinal fluid collection is smaller from the prior study. Gopal Cates Jr., MD Chest CT 12/21/16 0000 Signed Impressions: Service Date/Time: December 11:52 - CONCLUSION: 1. Abnormal paraspinal fluid and soft tissue containing gas highly suspicious for a paraspinal abscess. This finding is similar distribution but decreased from the prior exam. It extends from approximately T3-T8. 2. There is an open wound on the midline back with contiguous subcutaneous air collection which extends to the area of prior laminectomy. There is a small amount of air within the spinal canal, likely in the epidural space. 3. Focal airspace consolidation in the right lower lobe with partial cavitation measuring approximately 2.3 x 1.1 cm. There was an area of consolidation on the prior examination and in identical location. However, it has decreased in size from the prior study. 4. Stable sclerosis and partial destruction of what is thought to be the T7 vertebral body. 5. Small bilateral pleural effusions. Roshan Galvez MD Abscess Drainage CT 12/21/16 0000 Signed Impressions: Service Date/Time: December 12:17 - CONCLUSION: Uncomplicated CT guided aspiration of the paraspinal fluid collection. I was only able to aspirate approximately 1-2 cc of reddish foul-smelling fluid. The sample was saved and sent to the lab for microbiological analysis. Roshan Galvez MD Chest X-Ray 12/20/16 0000 Signed Impressions: Service Date/Time: Tuesday, December 20, 2016 07:45 - CONCLUSION: Underinflation with atelectasis at the lung bases. Otherwise, no acute finding is appreciated. Roshan Galvez MD Objective Remarks GENERAL: 41-year-old male, very skinny, resting in bed in no acute distress. Bitemporal waisting. SKIN: Warm and dry. Multiple tattoos bilateral upper extremities CARDIOVASCULAR: Tachycardia, RR. S1, S2 no S4. Do not appreciate murmur RESPIRATORY: Clear to auscultation. Breath sounds equal bilaterally. GASTROINTESTINAL: Abdomen soft, non-tender, nondistended. Hepatic and splenic margins not palpable. MUSCULOSKELETAL: Extremities without significant peripheral edema. Noted 3 x 3 open abscess/erythema with good granulation tissue over around T2/3 thoracic spine NEUROLOGICAL: Awake and alert. No obvious cranial nerve deficits. Motor grossly within normal limits. Five out of 5 muscle strength in the arms and legs. Normal speech. 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 - Osteomyelitis of vertebra, site unspecified (2) Gastroesophageal reflux disease ICD Code: K21.9 - Gastro-esophageal reflux disease without esophagitis (3) Acute kidney injury ICD Code: N17.9 - Acute kidney failure, unspecified (4) Thrombocytosis ICD Code: D47.3 - Essential (hemorrhagic) thrombocythemia (5) Microcytic anemia ICD Code: D50.9 - Iron deficiency anemia, unspecified (6) Leukocytosis ICD Code: D72.829 - Elevated white blood cell count, unspecified (7) Hyperkalemia ICD Code: E87.5 - Hyperkalemia (8) Discitis ICD Code: M46.40 - Discitis Status: Acute (9) Renal failure ICD Code: N19 - Renal failure Status: Acute (10) Intravenous drug abuse in remission ICD Code: F19.10 - Intravenous drug abuse in remission Status: Acute (11) HTN (hypertension) ICD Code: I10 - Essential (primary) hypertension Status: Acute (12) Osteomyelitis ICD Code: M86.9 - Osteomyelitis Status: Acute (13) Tobacco abuse ICD Code: Z72.0 - Tobacco abuse Status: Acute (14) Pulmonary abscess ICD Code: J85.2 - Abscess of lung without pneumonia Status: Acute Assessment and Plan Neuro/Psych: T5/6 through T7/8 discitis Pathologic fractures T5, 6 and 7. 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 On percocet per pain sclae 1-5 , dilaudid for pain 6-10 and add dilaudid 0.5 for breakthrough pain . Will consult palliative care for bass management. Previously OxyContin 40 mg twice a day with Dilaudid 4 mg every 4 hours when necessary breakthrough pain Currently on amitriptyline 25 mg a night for depression Thiamine, multivitamin and folate daily Neurosurgery/Dr. Pickard consulted, ff MRI repeat 12/27/16 reviewed findings discussed with Dr Cruz ID specialist. patient with progression of osteomyelitis /discitis. Neurosurgery to reevaluate for surgical intervention. CV: Sinus tachycardia 2-D echocardiogram 05/29 revealed EF 55-60%. No regional wall motion abnormality. Currently normal saline at 84 cc an hour. Resp: Tobaccoism Nasal cannula to maintain saturations greater than or equal to 92% Incentive spirometry while awake As needed albuterol aerosols Chest x-ray 12/20 revealed no acute findings GI: Regular diet Pantoprazole 40 mg daily for GI prophylaxis Docusate sodium/senna 1 tablet twice daily for bowel regimen Follow-up liver function tests : History of suprapubic catheter Currently no acute issues Endo: Sliding-scale insulin if indicated to maintain euglycemia Renal: Acute kidney injury - resolved Monitor urine output Accurate I's and O's Currently on normal saline at 84 cc an hour Repeat labs in a.m. Heme: Microcytic anemia Check iron studies/ferritin. Patient with iron deficiency anemia. Start ferrous sulfate 325 mg by mouth twice a day. Peripheral smear Hemoccult stool Follow-up CBC in a.m. Severe protein calorie malnutrition, low BMI of 17.6, muscle waiting. 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 Consult home health physical therapist. ID: Paravertebral abscess Currently on vancomycin/cefepime 12/20 - Blood cultures 2 no growth. Wound culture with staph aureus Infectious disease consultation appreciated with Dr. Cruz. Awaiting follow- up Mycobacterium abscesses cultures. S/P paravertebral abscess aspiration by IR on 12/22/16 with 2 cc of foul smelling red fluid. Cultures staph Aureus pansensitive. ID specialist also ff. Spoke with Dr Mike ID specialist. MRI back 12/27/16 per ID recommendations Back wound with large amount of pus, change abx to Ancef per ID. Anticipate long course of IV abx PICC per ID MSK: PT evaluate and treat Severe Protein calorie malnutrition BMI of 78, low albumin of 1.7. He can repeat, muscle wasting. Bitemporal wasting. 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 Access - Utilize peripheral IV. Central line if indicated Prophylaxis - GI - pantoprazole - DVT - SCD/holding pharmacological prophylaxis in light of possible surgical intervention Consult PT and OT Discussed with the patient, nurse, ID specialist Dr Cruz and neurosurgery DC plan: difficult DC , discussed with Tam[facility] case management. Plan to DC to SNF. CM ff for DC plan as well. Patient will need wound care, PT, IV antibiotic and pain management at DC. To follow up as Op with PCP and consultants. Needs clearance by neurosurgery and ID to arrange abx at DC also. Patient however with MRI showing worsening discitis/osteomyelitis , reevaluation by neurosurgey for surgical intervention. Not cleared for DC yet. Problem Qualifiers (1) Gastroesophageal reflux disease: Qualified Codes: K21.9 - Gastro-esophageal reflux disease without esophagitis (2) Leukocytosis: Qualified Codes: D72.829 - Elevated white blood cell count, unspecified (3) Discitis: Qualified Codes: M46.44 - Discitis, unspecified, thoracic region (4) Renal failure: Qualified Codes: N17.9 - Acute kidney failure, unspecified; N18.9 - Chronic kidney disease, unspecified (5) HTN (hypertension): Qualified Codes: I10 - Essential (primary) hypertension (6) Osteomyelitis: Qualified Codes: M86.8X0 - Other osteomyelitis, multiple sites (7) Pulmonary abscess: Qualified Codes: J85.2 - Abscess of lung without pneumonia Ariadna Sotomayor MD Dec 28, 2016 15:10
--- NOTE | 2016-12-28 16:49 | HHI.PR ---
Addendum to Inpatient Note Additional Information Case was dw Dr Pickard today who reviewed MRI and recommended surgical treatment PLAN: - cont IV abx - surgery tenatively Sunday Britney Cruz MD Dec 28, 2016 16:49
[2016-12-28 17:01] VITALS: BP 130/60; PULSE 68; RESP 20; TEMP 97.8; O2SAT 99
[2016-12-28 20:00] VITALS: BP 126/84; PULSE 104; RESP 16; TEMP 98.5; O2SAT 95
[2016-12-28] MEDS: AMITRIPTYLINE HCL 25 MG TAB PO SCH (20:55)
[2016-12-29 00:06] VITALS: BP 99/63; PULSE 112; RESP 18; TEMP 98.1; O2SAT 96
[2016-12-29] MEDS: HYDROmorphone HCL PF 0.5 MG/0.5 ML SYRINGE IV PUSH PRN ×6 (01:05→22:42)
[2016-12-29] MEDS: CHLORHEXIDINE GLUCONATE 2 % 1 PACK (2 CLOTHS) TOP SCH (02:41)
[2016-12-29] MEDS: HYDROmorphone HCL PF 1 MG/ML VIAL IV PUSH PRN ×4 (02:56→20:54)
[2016-12-29] MEDS: ceFAZolin 2 GM PREMIX 50 ML IV SCH ×3 (02:56→18:48)
[2016-12-29] MEDS: METHOCARBAMOL 500 MG TAB PO SCH ×3 (06:04→21:01)
[2016-12-29 07:00] VITALS: BP 99/73; PULSE 95; RESP 20; TEMP 97.5; O2SAT 96
[2016-12-29] MEDS: INSULIN NovoLIN REGULAR SUPPLEMENTAL SCALE SQ SCH ×4 (08:00→20:57)
[2016-12-29] MEDS: SODIUM CHLORIDE 0.9% FLUSH 10 ML FLUSH IV FLUSH SCH ×2 (09:00→20:54)
--- NOTE | 2016-12-29 09:55 | HHI.NSPN ---
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 He was most recently seen in May 2016 when he presented with a thoracic osteomyelitis-discitis with paraspinous abscess and underwent a T4-5 laminectomy, evacuation abscess. Cultures grew mycobacterium abscessus, for which he was placed on IV antibiotic treatment initially . He returned in June 2016 with persistent/recurrent infection, having been noncompliant with the IV treatment. He was placed on oral medication including Biaxine, which he was also noncompliant with. He states that he was feeling relatively well until a week ago when he developed right hip pain. He has had a previous ORIF of the right hip but states that it usually does not bother him. 2 days ago he noted a cutaneous infection in the mid thoracic region and went to [facility] emergency room for evaluation. He states that he was released and told to come to [place] for further treatment. He has noted drainage from the infection site in the past 1-2 days. He denies any fevers or chills. He complains of a productive cough or couple of weeks. No definite bowel or bladder dysfunction. He states that he has been able ambulate well without any definite numbness in the extremities except for the right hip. 12/26: The patient this morning is awake and alert when seen. He complains of back and right hip pain. He denies any numbness or tingling to the extremities. 12/29: When seen this morning the patient is awake and alert. He continues to have pain to the back and right hip. He went for an MRI of the thoracic spine on . (Darrion Garcia) System Review Comments MUSCULOSKELETAL: Pain to the back. The neck is sore. Pain to the right hip. NEUROLOGICAL: Numbness from the right hip down to the toes. (Darrion Garcia) Exam Results 12/27/16 12/27/16 12/28/16 12/28/16 12/29/16 12/29/16 06:00 18:00 06:00 18:00 06:00 18:00 Intake Total 50 ml 100 ml Output Total 1000 ml 1375 ml 250 ml 800 ml Balance -950 ml -1375 ml -150 ml -800 ml IV Total 50 ml 100 ml Output Urine Total 1000 ml 1375 ml 250 ml 800 ml # Bowel Movements 1 1 Vital Signs Date Time Temp Pulse Resp B/P (MAP) Pulse Ox O2 Delivery O2 Flow Rate FiO2 12/29/16 00:06 98.1 112 18 99/63 (75) 96 12/28/16 20:00 98.5 104 16 126/84 (98) 95 12/28/16 17:18 20 12/28/16 17:01 97.8 68 20 130/60 (83) 99 12/28/16 12:13 98.2 96 20 123/77 (92) 96 12/28/16 11:19 20 12/28/16 09:30 20 12/28/16 08:46 97.8 98 20 114/81 (92) 97 12/28/16 05:56 98.0 108 18 112/76 (88) 97 12/28/16 01:25 98.2 101 16 110/76 (87) 96 12/27/16 21:59 98.1 112 18 104/79 (87) 97 12/27/16 16:00 98.4 114 18 117/80 (92) 98 12/27/16 12:00 98.4 94 16 107/81 (90) 95 12/27/16 08:00 97.3 103 18 121/85 (97) 99 12/27/16 01:00 98.7 98 20 118/63 (81) 97 12/26/16 20:00 98.3 99 18 120/82 (95) 99 12/26/16 16:10 97.8 108 20 115/87 (96) 97 12/26/16 12:46 97.7 105 20 121/80 (94) 98 12/26/16 12:39 19 (Darrion Garcia) Physical Examination GENERAL: Thin male who appears comfortable, affect flat, no distress noted. SKIN: Intact dressing to wound dehiscence, no evident drainage, erythema or streaking. NECK: Midline cervical spine w/trace TTP, no JVD, trachea midline. MUSCULOSKELETAL: JENKINS w/o difficulty. Right hip TTP posteriorly & laterally. Upper thoracic spine TTP and remainder of thoracolumbar spine minimally TTP. NEUROLOGICAL: AAOx3. Speech clear & appropriate. Follows simple commands w/o difficulty. Sensation intact to light touch to all extremities. Motor strength is 5/5 to all major flexion & extension muscle groups of the BUE & LLE. Motor strength to the RLE is 4/5 to the iliopsoas, 4+/5 quadriceps, 3+ to 4/5 hamstrings, 4 to 4+ tibialis anterior, 3/5 gastrocnemius and 2/5 extensor hallucis longus. Pain to the right hip may have limited patient's ability when the RLE was evaluated. (Darrion Garcia) Lab, Micro, Other Results Recent Impressions Thoracic Spine MRI 12/27/16 0000 Signed Impressions: Service Date/Time: Tuesday, December 27, 2016 12:44 - CONCLUSION: 1. When compared to the prior study there has been progression in the discitis/osteomyelitis with worsening osteomyelitis extending from T4-T7 and development of a new epidural abscess that extends into the paraspinal soft tissues posteriorly. The anterior paraspinal fluid collection is smaller from the prior study. Gopal Cates Jr., MD Laboratory Tests Test 12/27/16 14:21 Erythrocyte Sedimentation Rate 65 mm/hr HIV (1&2) Antibody NEGATIVE (Darrion Garcia) Medical Decision Making Impression and Plan Impression: 1. Persistent T4-5-6 level discitis-osteomyelitis, paraspinous abscess with new area of subcutaneous abscess and adjacent wound dehiscence. MRI thoracic & lumbar spine from [facility] with chronic T5-6- 7 fractures with T4-5-6 discitis and paraspinous inflammation-abscess with extension towards the right lung. Findings are relatively stable compared to previous imaging studies from May and June 2016, however there is now a subcutaneous fluid collection present at the T4-6 level. MRI thoracic spine demonstrated worsening of the patient's osteomyelitis from T4-T7 and development of an epidural abscess extending into the paraspinal soft tissues when compared to the patient's MRI. The anterior paraspinal fluid collection is smaller. Back pain persists. Ssome weakness to RLE which may be r/t pain, o/w neurologically intact. Plan: Plan of care discussed with patient. Plan of care discussed with Hospitalist. Antibiotics per Infectious Disease. Mobilise patient, no brace required when OOB. No twisting, reaching, bending, pushing, pulling or other strenuous activity. Patient may potentially need surgery. Will try to obtain the patient's MRI done at transferring facility. (Darrion Garcia) Attending Statement The exam, history, and the medical decision-making described in the above note were completed with the assistance of the mid-level provider. I reviewed and agree with the findings presented. I attest that I had a [id number] encounter with the patient on the same day, and personally performed and documented my assessment and findings in the medical record. Awake and alert Stable lower extremity exam Small area of residual wound dehiscence with minimal drainage. Discuss with ID regarding possible debridement. (Jeffry Pickard MD) Darrion Garcia Dec 29, 2016 09:55 Jeffry Pickard MD Jan 03, 2017 22:37
[2016-12-29] MEDS: oxyCODONE HCL 40 MG CONTROLLED RELEASE TAB PO SCH ×2 (10:05→20:53)
[2016-12-29] MEDS: DOCUSATE SODIUM 50 MG/SENNA 8.6 MG TAB PO SCH ×2 (10:05→20:53)
[2016-12-29] MEDS: FOLIC ACID 1 MG TAB PO SCH (10:05)
[2016-12-29] MEDS: THIAMINE HCL 100 MG TAB PO SCH (10:05)
[2016-12-29] MEDS: PANTOPRAZOLE SOD 40 MG DELAYED RELEASE TAB PO SCH (10:05)
[2016-12-29] MEDS: MULTIVITAMIN TAB PO SCH (10:05)
[2016-12-29] MEDS: FERROUS SULFATE 325 MG (65 MG ELEMENTAL IRON) TAB PO SCH ×2 (12:39→16:40)
[2016-12-29 13:06] VITALS: BP 87/59; PULSE 96; RESP 20; TEMP 98.4; O2SAT 96
--- NOTE | 2016-12-29 13:40 | HHI.PR ---
Subjective Remarks That he appears sleepy. However says current pain medications are not working and he wants to increase IV pain medications. No fever or chills. No tachycardia. No chest pain. Neurosurgery plans for surgical intervention. Objective Vitals Vital Signs Date Time Temp Pulse Resp B/P (MAP) Pulse Ox O2 Delivery O2 Flow Rate FiO2 12/29/16 13:06 98.4 96 20 87/59 (68) 96 12/29/16 07:00 97.5 95 20 99/73 (82) 96 12/29/16 00:06 98.1 112 18 99/63 (75) 96 12/28/16 20:00 98.5 104 16 126/84 (98) 95 12/28/16 17:18 20 12/28/16 17:01 97.8 68 20 130/60 (83) 99 I/O 12/28/16 12/28/16 12/28/16 12/29/16 12/29/16 12/29/16 07:00 15:00 23:00 07:00 15:00 23:00 Intake Total 50 ml 50 ml Output Total 650 ml 975 ml 800 ml Balance -650 ml -925 ml -750 ml IV Total 50 ml 50 ml Output Urine Total 650 ml 975 ml 800 ml # Bowel Movements 0 1 1 Result Diagram: 12/25/1630 12/25/16 0630 Imaging Last Impressions Thoracic Spine MRI 12/27/16 0000 Signed Impressions: Service Date/Time: Tuesday, December 27, 2016 12:44 - CONCLUSION: 1. When compared to the prior study there has been progression in the discitis/osteomyelitis with worsening osteomyelitis extending from T4-T7 and development of a new epidural abscess that extends into the paraspinal soft tissues posteriorly. The anterior paraspinal fluid collection is smaller from the prior study. Gopal Cates Jr., MD Chest CT 12/21/16 0000 Signed Impressions: Service Date/Time: December 11:52 - CONCLUSION: 1. Abnormal paraspinal fluid and soft tissue containing gas highly suspicious for a paraspinal abscess. This finding is similar distribution but decreased from the prior exam. It extends from approximately T3-T8. 2. There is an open wound on the midline back with contiguous subcutaneous air collection which extends to the area of prior laminectomy. There is a small amount of air within the spinal canal, likely in the epidural space. 3. Focal airspace consolidation in the right lower lobe with partial cavitation measuring approximately 2.3 x 1.1 cm. There was an area of consolidation on the prior examination and in identical location. However, it has decreased in size from the prior study. 4. Stable sclerosis and partial destruction of what is thought to be the T7 vertebral body. 5. Small bilateral pleural effusions. Roshan Galvez MD Abscess Drainage CT 12/21/16 0000 Signed Impressions: Service Date/Time: December 12:17 - CONCLUSION: Uncomplicated CT guided aspiration of the paraspinal fluid collection. I was only able to aspirate approximately 1-2 cc of reddish foul-smelling fluid. The sample was saved and sent to the lab for microbiological analysis. Roshan Galvez MD Chest X-Ray 12/20/16 0000 Signed Impressions: Service Date/Time: Tuesday, December 20, 2016 07:45 - CONCLUSION: Underinflation with atelectasis at the lung bases. Otherwise, no acute finding is appreciated. Roshan Galvez MD Objective Remarks GENERAL: 41-year-old male, very skinny, resting in bed in no acute distress. Bitemporal waisting. SKIN: Warm and dry. Multiple tattoos bilateral upper extremities CARDIOVASCULAR: Tachycardia, RR. S1, S2 no S4. Do not appreciate murmur RESPIRATORY: Clear to auscultation. Breath sounds equal bilaterally. GASTROINTESTINAL: Abdomen soft, non-tender, nondistended. Hepatic and splenic margins not palpable. MUSCULOSKELETAL: Extremities without significant peripheral edema. Noted 3 x 3 open abscess/erythema with good granulation tissue over around T2/3 thoracic spine NEUROLOGICAL: Awake and alert. No obvious cranial nerve deficits. Motor grossly within normal limits. Five out of 5 muscle strength in the arms and legs. Normal speech. 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 - Osteomyelitis of vertebra, site unspecified (2) Gastroesophageal reflux disease ICD Code: K21.9 - Gastro-esophageal reflux disease without esophagitis (3) Acute kidney injury ICD Code: N17.9 - Acute kidney failure, unspecified (4) Thrombocytosis ICD Code: D47.3 - Essential (hemorrhagic) thrombocythemia (5) Microcytic anemia ICD Code: D50.9 - Iron deficiency anemia, unspecified (6) Leukocytosis ICD Code: D72.829 - Elevated white blood cell count, unspecified (7) Hyperkalemia ICD Code: E87.5 - Hyperkalemia (8) Discitis ICD Code: M46.40 - Discitis Status: Acute (9) Renal failure ICD Code: N19 - Renal failure Status: Acute (10) Intravenous drug abuse in remission ICD Code: F19.10 - Intravenous drug abuse in remission Status: Acute (11) HTN (hypertension) ICD Code: I10 - Essential (primary) hypertension Status: Acute (12) Osteomyelitis ICD Code: M86.9 - Osteomyelitis Status: Acute (13) Tobacco abuse ICD Code: Z72.0 - Tobacco abuse Status: Acute (14) Pulmonary abscess ICD Code: J85.2 - Abscess of lung without pneumonia Status: Acute Assessment and Plan Neuro/Psych: T5/6 through T7/8 discitis Pathologic fractures T5, 6 and 7. 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 On percocet per pain sclae 1-5 , dilaudid for pain 6-10 and add dilaudid 0.5 for breakthrough pain . Will consult palliative care for bass management. Previously OxyContin 40 mg twice a day with Dilaudid 4 mg every 4 hours when necessary breakthrough pain Currently on amitriptyline 25 mg a night for depression Thiamine, multivitamin and folate daily Neurosurgery/Dr. Pickard consulted, ff MRI repeat 12/27/16 reviewed findings discussed with Dr Cruz ID specialist. patient with progression of osteomyelitis /discitis. Neurosurgery reevaluated for surgical intervention. Plan for surgical intervention. CV: Sinus tachycardia 2-D echocardiogram 05/29 revealed EF 55-60%. No regional wall motion abnormality. Currently normal saline at 84 cc an hour. Resp: Tobaccoism Nasal cannula to maintain saturations greater than or equal to 92% Incentive spirometry while awake As needed albuterol aerosols Chest x-ray 12/20 revealed no acute findings GI: Regular diet Pantoprazole 40 mg daily for GI prophylaxis Docusate sodium/senna 1 tablet twice daily for bowel regimen Follow-up liver function tests : History of suprapubic catheter Currently no acute issues Endo: Sliding-scale insulin if indicated to maintain euglycemia Renal: Acute kidney injury - resolved Monitor urine output Accurate I's and O's Currently on normal saline at 84 cc an hour Repeat labs in a.m. Heme: Microcytic anemia Check iron studies/ferritin. Patient with iron deficiency anemia. Start ferrous sulfate 325 mg by mouth twice a day. Peripheral smear Hemoccult stool Follow-up CBC in a.m. Severe protein calorie malnutrition, low BMI of 17.6, muscle waiting. 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 ID: Paravertebral abscess Currently on vancomycin/cefepime 12/20 - Blood cultures 2 no growth. Wound culture with staph aureus Infectious disease consultation appreciated with Dr. Cruz. Awaiting follow- up Mycobacterium abscesses cultures. S/P paravertebral abscess aspiration by IR on 12/22/16 with 2 cc of foul smelling red fluid. Cultures staph Aureus pansensitive. ID specialist also ff. Spoke with Dr Mike ID specialist. MRI back 12/27/16 per ID recommendations Back wound with large amount of pus, change abx to Ancef per ID. Anticipate long course of IV abx PICC per ID MSK: PT evaluate and treat Severe Protein calorie malnutrition BMI of 78, low albumin of 1.7. He can repeat, muscle wasting. Bitemporal wasting. 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 Access - Utilize peripheral IV. Central line if indicated Prophylaxis - GI - pantoprazole - DVT - SCD/holding pharmacological prophylaxis in light of possible surgical intervention Consult PT and OT Discussed with the patient, nurse, ID specialist Dr Cruz and neurosurgery DC plan: difficult DC , discussed with [facility] case management. Plan to DC to SNF. CM ff for DC plan as well. Patient will need wound care, PT, IV antibiotic and pain management at DC. To follow up as Op with PCP and consultants. Needs clearance by neurosurgery and ID to arrange abx at DC also. Patient however with MRI showing worsening discitis/osteomyelitis , reevaluation by neurosurgey for surgical intervention. Not cleared for DC yet. Plan for surgical intervention per neurosurgery Problem Qualifiers (1) Gastroesophageal reflux disease: Qualified Codes: K21.9 - Gastro-esophageal reflux disease without esophagitis (2) Leukocytosis: Qualified Codes: D72.829 - Elevated white blood cell count, unspecified (3) Discitis: Qualified Codes: M46.44 - Discitis, unspecified, thoracic region (4) Renal failure: Qualified Codes: N17.9 - Acute kidney failure, unspecified; N18.9 - Chronic kidney disease, unspecified (5) HTN (hypertension): Qualified Codes: I10 - Essential (primary) hypertension (6) Osteomyelitis: Qualified Codes: M86.8X0 - Other osteomyelitis, multiple sites (7) Pulmonary abscess: Qualified Codes: J85.2 - Abscess of lung without pneumonia Ariadna Sotomayor MD Dec 29, 2016 13:40
[2016-12-29 16:00] VITALS: BP 103/68; PULSE 101; RESP 20; TEMP 98.4; O2SAT 97
[2016-12-29 20:20] VITALS: BP 115/82; PULSE 112; RESP 17; TEMP 98; O2SAT 97
[2016-12-29] MEDS: AMITRIPTYLINE HCL 25 MG TAB PO SCH (20:53)
[2016-12-30 00:40] VITALS: BP 111/84; PULSE 106; RESP 17; TEMP 99.1; O2SAT 96
[2016-12-30] MEDS: HYDROmorphone HCL PF 1 MG/ML VIAL IV PUSH PRN ×6 (00:43→21:03)
[2016-12-30] MEDS: ceFAZolin 2 GM PREMIX 50 ML IV SCH ×3 (02:51→17:52)
[2016-12-30] MEDS: HYDROmorphone HCL PF 0.5 MG/0.5 ML SYRINGE IV PUSH PRN ×5 (02:51→20:28)
[2016-12-30 03:00] VITALS: BP 106/78; PULSE 101; RESP 16; TEMP 97.9; O2SAT 96
[2016-12-30] MEDS: oxyCODONE/ACETAMINOPHEN 10 MG/325 MG TAB PO PRN (03:01)
[2016-12-30] MEDS: CHLORHEXIDINE GLUCONATE 2 % 1 PACK (2 CLOTHS) TOP SCH (03:48)
[2016-12-30] MEDS: METHOCARBAMOL 500 MG TAB PO SCH ×3 (06:41→20:28)
[2016-12-30 08:00] VITALS: BP 110/78; PULSE 97; RESP 16; TEMP 98.3; O2SAT 97
[2016-12-30] MEDS: INSULIN NovoLIN REGULAR SUPPLEMENTAL SCALE SQ SCH ×4 (08:00→20:29)
[2016-12-30] MEDS: PANTOPRAZOLE SOD 40 MG DELAYED RELEASE TAB PO SCH (09:10)
[2016-12-30] MEDS: DOCUSATE SODIUM 50 MG/SENNA 8.6 MG TAB PO SCH ×2 (09:10→20:29)
[2016-12-30] MEDS: FOLIC ACID 1 MG TAB PO SCH (09:10)
[2016-12-30] MEDS: MULTIVITAMIN TAB PO SCH (09:10)
[2016-12-30] MEDS: SODIUM CHLORIDE 0.9% FLUSH 10 ML FLUSH IV FLUSH SCH ×2 (09:11→20:27)
[2016-12-30] MEDS: oxyCODONE HCL 40 MG CONTROLLED RELEASE TAB PO SCH ×2 (09:11→20:27)
[2016-12-30] MEDS: THIAMINE HCL 100 MG TAB PO SCH (09:11)
--- NOTE | 2016-12-30 09:52 | HHI.PR ---
Subjective Remarks Patient sleepy. Denies chest pain or sob. No fever or chills. No n/v/d/c. Says he has pain in his back and is asking for more dilaudid. He is eating better appetite is good. Objective Vitals Vital Signs Date Time Temp Pulse Resp B/P (MAP) Pulse Ox O2 Delivery O2 Flow Rate FiO2 12/30/16 08:00 98.3 97 16 110/78 (89) 97 12/30/16 03:00 97.9 101 16 106/78 (87) 96 12/30/16 00:40 99.1 106 17 111/84 (93) 96 12/29/16 20:20 98.0 112 17 115/82 (93) 97 12/29/16 16:00 98.4 101 20 103/68 (80) 97 12/29/16 13:06 98.4 96 20 87/59 (68) 96 I/O 12/29/16 12/29/16 12/29/16 12/30/16 12/30/16 12/30/16 07:00 15:00 23:00 07:00 15:00 23:00 Intake Total 50 ml 1500 ml 2500 ml Output Total 800 ml 875 ml 1200 ml Balance -750 ml 625 ml 1300 ml Intake Oral 1500 ml 2500 ml IV Total 50 ml Output Urine Total 800 ml 875 ml 1200 ml # Voids 3 # Bowel Movements 1 0 0 Imaging Last Impressions Thoracic Spine MRI 12/27/16 0000 Signed Impressions: Service Date/Time: Tuesday, December 27, 2016 12:44 - CONCLUSION: 1. When compared to the prior study there has been progression in the discitis/osteomyelitis with worsening osteomyelitis extending from T4-T7 and development of a new epidural abscess that extends into the paraspinal soft tissues posteriorly. The anterior paraspinal fluid collection is smaller from the prior study. Gopal Cates Jr., MD Chest CT 12/21/16 0000 Signed Impressions: Service Date/Time: December 11:52 - CONCLUSION: 1. Abnormal paraspinal fluid and soft tissue containing gas highly suspicious for a paraspinal abscess. This finding is similar distribution but decreased from the prior exam. It extends from approximately T3-T8. 2. There is an open wound on the midline back with contiguous subcutaneous air collection which extends to the area of prior laminectomy. There is a small amount of air within the spinal canal, likely in the epidural space. 3. Focal airspace consolidation in the right lower lobe with partial cavitation measuring approximately 2.3 x 1.1 cm. There was an area of consolidation on the prior examination and in identical location. However, it has decreased in size from the prior study. 4. Stable sclerosis and partial destruction of what is thought to be the T7 vertebral body. 5. Small bilateral pleural effusions. Roshan Galvez MD Abscess Drainage CT 12/21/16 0000 Signed Impressions: Service Date/Time: December 12:17 - CONCLUSION: Uncomplicated CT guided aspiration of the paraspinal fluid collection. I was only able to aspirate approximately 1-2 cc of reddish foul-smelling fluid. The sample was saved and sent to the lab for microbiological analysis. Roshan Galvez MD Chest X-Ray 12/20/16 0000 Signed Impressions: Service Date/Time: Tuesday, December 20, 2016 07:45 - CONCLUSION: Underinflation with atelectasis at the lung bases. Otherwise, no acute finding is appreciated. Roshan Galvez MD Objective Remarks GENERAL: 41-year-old male, very skinny, resting in bed in no acute distress. Bitemporal waisting. SKIN: Warm and dry. Multiple tattoos bilateral upper extremities CARDIOVASCULAR: Tachycardia, RR. S1, S2 no S4. Do not appreciate murmur RESPIRATORY: Clear to auscultation. Breath sounds equal bilaterally. GASTROINTESTINAL: Abdomen soft, non-tender, nondistended. Hepatic and splenic margins not palpable. MUSCULOSKELETAL: Extremities without significant peripheral edema. Noted 3 x 3 open abscess/erythema with good granulation tissue over around T2/3 thoracic spine NEUROLOGICAL: Awake and alert. No obvious cranial nerve deficits. Motor grossly within normal limits. Five out of 5 muscle strength in the arms and legs. Normal speech. 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 - Osteomyelitis of vertebra, site unspecified (2) Gastroesophageal reflux disease ICD Code: K21.9 - Gastro-esophageal reflux disease without esophagitis (3) Acute kidney injury ICD Code: N17.9 - Acute kidney failure, unspecified (4) Thrombocytosis ICD Code: D47.3 - Essential (hemorrhagic) thrombocythemia (5) Microcytic anemia ICD Code: D50.9 - Iron deficiency anemia, unspecified (6) Leukocytosis ICD Code: D72.829 - Elevated white blood cell count, unspecified (7) Hyperkalemia ICD Code: E87.5 - Hyperkalemia (8) Discitis ICD Code: M46.40 - Discitis Status: Acute (9) Renal failure ICD Code: N19 - Renal failure Status: Acute (10) Intravenous drug abuse in remission ICD Code: F19.10 - Intravenous drug abuse in remission Status: Acute (11) HTN (hypertension) ICD Code: I10 - Essential (primary) hypertension Status: Acute (12) Osteomyelitis ICD Code: M86.9 - Osteomyelitis Status: Acute (13) Tobacco abuse ICD Code: Z72.0 - Tobacco abuse Status: Acute (14) Pulmonary abscess ICD Code: J85.2 - Abscess of lung without pneumonia Status: Acute Assessment and Plan Neuro/Psych: T5/6 through T7/8 discitis Pathologic fractures T5, 6 and 7. 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 On percocet per pain sclae 1-5 , dilaudid for pain 6-10 and add dilaudid 0.5 for breakthrough pain . Consult palliative care for bass management. Previously OxyContin 40 mg twice a day with Dilaudid 4 mg every 4 hours when necessary breakthrough pain Currently on amitriptyline 25 mg a night for depression Thiamine, multivitamin and folate daily Neurosurgery/Dr. Pickard consulted, ff MRI repeat 12/27/16 reviewed findings discussed with Dr Cruz ID specialist. patient with progression of osteomyelitis /discitis. Neurosurgery reevaluated for surgical intervention. Plan for surgical intervention. CV: Sinus tachycardia 2-D echocardiogram 05/29 revealed EF 55-60%. No regional wall motion abnormality. Currently normal saline at 84 cc an hour. Resp: Tobaccoism Nasal cannula to maintain saturations greater than or equal to 92% Incentive spirometry while awake As needed albuterol aerosols Chest x-ray 12/20 revealed no acute findings GI: Regular diet Pantoprazole 40 mg daily for GI prophylaxis Docusate sodium/senna 1 tablet twice daily for bowel regimen Follow-up liver function tests : History of suprapubic catheter Currently no acute issues Endo: Sliding-scale insulin if indicated to maintain euglycemia Renal: Acute kidney injury - resolved Monitor urine output Accurate I's and O's Currently on normal saline at 84 cc an hour Repeat labs in a.m. Heme: Microcytic anemia Check iron studies/ferritin. Patient with iron deficiency anemia. Start ferrous sulfate 325 mg by mouth twice a day. Peripheral smear Hemoccult stool Follow-up CBC in a.m. Severe protein calorie malnutrition, low BMI of 17.6, muscle waiting. 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 ID: Paravertebral abscess With MSSA and Ancef is started 12/26/16 per ID recommendations and vancomycin/ cefepime was DCd 12/20 - Blood cultures no growth. Wound culture with staph aureus. Infectious disease consultation appreciated with Dr. Cruz. Awaiting follow- up Mycobacterium abscesses cultures. S/P paravertebral abscess aspiration by IR on 12/22/16 with 2 cc of foul smelling red fluid. Cultures staph Aureus pansensitive. ID specialist also ff. Spoke with Dr Mike ID specialist. MRI back 12/27/16 per ID recommendations Back wound with large amount of pus, abx changed to Ancef per ID. Anticipate long course of IV abx PICC per ID MSK: PT evaluate and treat Severe Protein calorie malnutrition BMI of 78, low albumin of 1.7. He can repeat, muscle wasting. Bitemporal wasting. 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 Access - Utilize peripheral IV. Central line if indicated Prophylaxis - GI - pantoprazole - DVT - SCD/holding pharmacological prophylaxis in light of possible surgical intervention Consult PT and OT Discussed with the patient, nurse, ID specialist Dr Cruz and neurosurgery DC plan: difficult DC , discussed with [facility] case management. Plan to DC to SNF. CM ff for DC plan as well. Patient will need wound care, PT, IV antibiotic Ancef per ID recommendations, and pain management at DC. To follow up as Op with PCP and consultants. Needs clearance by neurosurgery and ID to arrange abx at DC also. Patient however with MRI showing worsening discitis/osteomyelitis , reevaluation by neurosurgey for surgical intervention. Not cleared for DC yet. Plan for surgical intervention per neurosurgery Problem Qualifiers (1) Gastroesophageal reflux disease: Qualified Codes: K21.9 - Gastro-esophageal reflux disease without esophagitis (2) Leukocytosis: Qualified Codes: D72.829 - Elevated white blood cell count, unspecified (3) Discitis: Qualified Codes: M46.44 - Discitis, unspecified, thoracic region (4) Renal failure: Qualified Codes: N17.9 - Acute kidney failure, unspecified; N18.9 - Chronic kidney disease, unspecified (5) HTN (hypertension): Qualified Codes: I10 - Essential (primary) hypertension (6) Osteomyelitis: Qualified Codes: M86.8X0 - Other osteomyelitis, multiple sites (7) Pulmonary abscess: Qualified Codes: J85.2 - Abscess of lung without pneumonia Ariadna Sotomayor MD Dec 30, 2016 09:52
[2016-12-30] MEDS: FERROUS SULFATE 325 MG (65 MG ELEMENTAL IRON) TAB PO SCH ×2 (12:56→15:39)
[2016-12-30 16:00] VITALS: BP 118/80; PULSE 98; RESP 16; TEMP 98.4; O2SAT 98
[2016-12-30] MEDS: AMITRIPTYLINE HCL 25 MG TAB PO SCH (20:27)
[2016-12-30 20:45] VITALS: BP 105/77; PULSE 109; RESP 17; TEMP 98.2; O2SAT 99
[2016-12-31] MEDS: HYDROmorphone HCL PF 0.5 MG/0.5 ML SYRINGE IV PUSH PRN ×6 (00:29→20:25)
[2016-12-31] MEDS: ceFAZolin 2 GM PREMIX 50 ML IV SCH ×3 (03:00→18:14)
[2016-12-31] MEDS: CHLORHEXIDINE GLUCONATE 2 % 1 PACK (2 CLOTHS) TOP SCH (04:00)
[2016-12-31] MEDS: METHOCARBAMOL 500 MG TAB PO SCH ×3 (05:31→20:25)
[2016-12-31] MEDS: HYDROmorphone HCL PF 1 MG/ML VIAL IV PUSH PRN ×5 (05:31→22:31)
[2016-12-31] MEDS: INSULIN NovoLIN REGULAR SUPPLEMENTAL SCALE SQ SCH ×4 (07:44→20:27)
[2016-12-31 08:00] VITALS: BP 104/67; PULSE 86; RESP 19; TEMP 97.5; O2SAT 96
[2016-12-31] MEDS: FOLIC ACID 1 MG TAB PO SCH (08:35)
[2016-12-31] MEDS: DOCUSATE SODIUM 50 MG/SENNA 8.6 MG TAB PO SCH ×2 (08:35→20:25)
[2016-12-31] MEDS: oxyCODONE HCL 40 MG CONTROLLED RELEASE TAB PO SCH ×2 (08:35→20:24)
[2016-12-31] MEDS: PANTOPRAZOLE SOD 40 MG DELAYED RELEASE TAB PO SCH (08:35)
[2016-12-31] MEDS: THIAMINE HCL 100 MG TAB PO SCH (08:36)
[2016-12-31] MEDS: MULTIVITAMIN TAB PO SCH (08:36)
[2016-12-31] MEDS: SODIUM CHLORIDE 0.9% FLUSH 10 ML FLUSH IV FLUSH SCH ×2 (08:41→20:24)
[2016-12-31 12:00] VITALS: BP 97/57; PULSE 106; RESP 18; TEMP 98.8; O2SAT 96
[2016-12-31] MEDS: FERROUS SULFATE 325 MG (65 MG ELEMENTAL IRON) TAB PO SCH ×2 (12:36→16:26)
--- NOTE | 2016-12-31 12:54 | HHI.PR ---
Subjective Remarks The patient is in bed he is sleepy at this time. He is asking for more pain medications specifically to increase the Dilaudid however he appears in not acute distress at this time and his was sleeping when I enter the room. No fever or chills. He is eating better no nausea or vomiting no diarrhea or constipation. Objective Vitals Vital Signs Date Time Temp Pulse Resp B/P (MAP) Pulse Ox O2 Delivery O2 Flow Rate FiO2 12/31/16 10:42 18 12/31/16 09:10 18 12/31/16 08:00 97.5 86 19 104/67 (79) 96 12/30/16 20:45 98.2 109 17 105/77 (86) 99 12/30/16 16:00 98.4 98 16 118/80 (93) 98 I/O 12/30/16 12/30/16 12/30/16 12/31/16 12/31/16 12/31/16 07:00 15:00 23:00 07:00 15:00 23:00 Intake Total 2500 ml 3940 ml 2800 ml Output Total 1200 ml 2300 ml 1000 ml Balance 1300 ml 1640 ml 1800 ml Intake Oral 2500 ml 3940 ml 2800 ml Output Urine Total 1200 ml 2300 ml 1000 ml # Bowel Movements 0 2 0 Imaging Last Impressions Thoracic Spine MRI 12/27/16 0000 Signed Impressions: Service Date/Time: Tuesday, December 27, 2016 12:44 - CONCLUSION: 1. When compared to the prior study there has been progression in the discitis/osteomyelitis with worsening osteomyelitis extending from T4-T7 and development of a new epidural abscess that extends into the paraspinal soft tissues posteriorly. The anterior paraspinal fluid collection is smaller from the prior study. Gopal Cates Jr., MD Chest CT 12/21/16 0000 Signed Impressions: Service Date/Time: December 11:52 - CONCLUSION: 1. Abnormal paraspinal fluid and soft tissue containing gas highly suspicious for a paraspinal abscess. This finding is similar distribution but decreased from the prior exam. It extends from approximately T3-T8. 2. There is an open wound on the midline back with contiguous subcutaneous air collection which extends to the area of prior laminectomy. There is a small amount of air within the spinal canal, likely in the epidural space. 3. Focal airspace consolidation in the right lower lobe with partial cavitation measuring approximately 2.3 x 1.1 cm. There was an area of consolidation on the prior examination and in identical location. However, it has decreased in size from the prior study. 4. Stable sclerosis and partial destruction of what is thought to be the T7 vertebral body. 5. Small bilateral pleural effusions. Roshan Galvez MD Abscess Drainage CT 12/21/16 0000 Signed Impressions: Service Date/Time: December 12:17 - CONCLUSION: Uncomplicated CT guided aspiration of the paraspinal fluid collection. I was only able to aspirate approximately 1-2 cc of reddish foul-smelling fluid. The sample was saved and sent to the lab for microbiological analysis. Roshan Galvez MD Chest X-Ray 12/20/16 0000 Signed Impressions: Service Date/Time: Tuesday, December 20, 2016 07:45 - CONCLUSION: Underinflation with atelectasis at the lung bases. Otherwise, no acute finding is appreciated. Roshan Galvez MD Objective Remarks GENERAL: 41-year-old male, very skinny, resting in bed in no acute distress. Bitemporal waisting. SKIN: Warm and dry. Multiple tattoos bilateral upper extremities CARDIOVASCULAR: Tachycardia, RR. S1, S2 no S4. Do not appreciate murmur RESPIRATORY: Clear to auscultation. Breath sounds equal bilaterally. GASTROINTESTINAL: Abdomen soft, non-tender, nondistended. Hepatic and splenic margins not palpable. MUSCULOSKELETAL: Extremities without significant peripheral edema. Noted 3 x 3 open abscess/erythema with good granulation tissue over around T2/3 thoracic spine NEUROLOGICAL: Awake and alert. No obvious cranial nerve deficits. Motor grossly within normal limits. Five out of 5 muscle strength in the arms and legs. Normal speech. 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 - Osteomyelitis of vertebra, site unspecified (2) Gastroesophageal reflux disease ICD Code: K21.9 - Gastro-esophageal reflux disease without esophagitis (3) Acute kidney injury ICD Code: N17.9 - Acute kidney failure, unspecified (4) Thrombocytosis ICD Code: D47.3 - Essential (hemorrhagic) thrombocythemia (5) Microcytic anemia ICD Code: D50.9 - Iron deficiency anemia, unspecified (6) Leukocytosis ICD Code: D72.829 - Elevated white blood cell count, unspecified (7) Hyperkalemia ICD Code: E87.5 - Hyperkalemia (8) Discitis ICD Code: M46.40 - Discitis Status: Acute (9) Renal failure ICD Code: N19 - Renal failure Status: Acute (10) Intravenous drug abuse in remission ICD Code: F19.10 - Intravenous drug abuse in remission Status: Acute (11) HTN (hypertension) ICD Code: I10 - Essential (primary) hypertension Status: Acute (12) Osteomyelitis ICD Code: M86.9 - Osteomyelitis Status: Acute (13) Tobacco abuse ICD Code: Z72.0 - Tobacco abuse Status: Acute (14) Pulmonary abscess ICD Code: J85.2 - Abscess of lung without pneumonia Status: Acute Assessment and Plan Neuro/Psych: T5/6 through T7/8 discitis Pathologic fractures T5, 6 and 7. 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 On percocet per pain sclae 1-5 , dilaudid for pain 6-10 and add dilaudid 0.5 for breakthrough pain . Consult palliative care for bass management. Previously OxyContin 40 mg twice a day with Dilaudid 4 mg every 4 hours when necessary breakthrough pain Currently on amitriptyline 25 mg a night for depression Thiamine, multivitamin and folate daily Neurosurgery/Dr. Pickard consulted, ff MRI repeat 12/27/16 reviewed findings discussed with Dr Cruz ID specialist. patient with progression of osteomyelitis /discitis. Neurosurgery reevaluated for surgical intervention. Plan for surgical intervention. CV: Sinus tachycardia 2-D echocardiogram 05/29 revealed EF 55-60%. No regional wall motion abnormality. Currently normal saline at 84 cc an hour. Resp: Tobaccoism Nasal cannula to maintain saturations greater than or equal to 92% Incentive spirometry while awake As needed albuterol aerosols Chest x-ray 12/20 revealed no acute findings GI: Regular diet Pantoprazole 40 mg daily for GI prophylaxis Docusate sodium/senna 1 tablet twice daily for bowel regimen Follow-up liver function tests : History of suprapubic catheter Currently no acute issues Endo: Sliding-scale insulin if indicated to maintain euglycemia Renal: Acute kidney injury - resolved Monitor urine output Accurate I's and O's Currently on normal saline at 84 cc an hour Repeat labs in a.m. Heme: Microcytic anemia Check iron studies/ferritin. Patient with iron deficiency anemia. Start ferrous sulfate 325 mg by mouth twice a day. Peripheral smear Hemoccult stool Follow-up CBC in a.m. Severe protein calorie malnutrition, low BMI of 17.6, muscle waiting. 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 ID: Paravertebral abscess With MSSA and Ancef is started 12/26/16 per ID recommendations and vancomycin/ cefepime was DCd 12/20 - Blood cultures no growth. Wound culture with staph aureus. Infectious disease consultation appreciated with Dr. Cruz. Awaiting follow- up Mycobacterium abscesses cultures. S/P paravertebral abscess aspiration by IR on 12/22/16 with 2 cc of foul smelling red fluid. Cultures staph Aureus pansensitive. ID specialist also ff. Spoke with Dr Mike ID specialist. MRI back 12/27/16 per ID recommendations Back wound with large amount of pus, abx changed to Ancef per ID. Anticipate long course of IV abx PICC per ID MSK: PT evaluate and treat Severe Protein calorie malnutrition BMI of 78, low albumin of 1.7. He can repeat, muscle wasting. Bitemporal wasting. 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 Access - Utilize peripheral IV. Central line if indicated Prophylaxis - GI - pantoprazole - DVT - SCD/holding pharmacological prophylaxis in light of possible surgical intervention Consult PT and OT Discussed with the patient, nurse, ID specialist Dr Cruz and neurosurgery DC plan: difficult DC , discussed with [facility] case management. Plan to DC to SNF. CM ff for DC plan as well. Patient will need wound care, PT, IV antibiotic Ancef per ID recommendations, and pain management at DC. To follow up as Op with PCP and consultants. Needs clearance by neurosurgery and ID to arrange abx at DC also. Patient however with MRI showing worsening discitis/osteomyelitis , reevaluation by neurosurgery for surgical intervention. Not cleared for DC yet. Plan for surgical intervention per neurosurgery Problem Qualifiers (1) Gastroesophageal reflux disease: Qualified Codes: K21.9 - Gastro-esophageal reflux disease without esophagitis (2) Leukocytosis: Qualified Codes: D72.829 - Elevated white blood cell count, unspecified (3) Discitis: Qualified Codes: M46.44 - Discitis, unspecified, thoracic region (4) Renal failure: Qualified Codes: N17.9 - Acute kidney failure, unspecified; N18.9 - Chronic kidney disease, unspecified (5) HTN (hypertension): Qualified Codes: I10 - Essential (primary) hypertension (6) Osteomyelitis: Qualified Codes: M86.8X0 - Other osteomyelitis, multiple sites (7) Pulmonary abscess: Qualified Codes: J85.2 - Abscess of lung without pneumonia Ariadna Sotomayor MD Dec 31, 2016 12:53
[2016-12-31 16:00] VITALS: BP 96/53; PULSE 96; RESP 18; TEMP 98.3; O2SAT 98
[2016-12-31] MEDS: AMITRIPTYLINE HCL 25 MG TAB PO SCH (20:25)
[2016-12-31 20:45] VITALS: BP 114/84; PULSE 106; RESP 16; TEMP 98.2; O2SAT 97
[2017-01-01 00:20] VITALS: BP 99/75; PULSE 115; RESP 17; TEMP 98.3; O2SAT 97
[2017-01-01] MEDS: HYDROmorphone HCL PF 0.5 MG/0.5 ML SYRINGE IV PUSH PRN ×6 (00:33→20:34)
[2017-01-01] MEDS: HYDROmorphone HCL PF 1 MG/ML VIAL IV PUSH PRN ×6 (02:28→22:49)
[2017-01-01] MEDS: ceFAZolin 2 GM PREMIX 50 ML IV SCH ×3 (02:29→18:24)
[2017-01-01] MEDS: CHLORHEXIDINE GLUCONATE 2 % 1 PACK (2 CLOTHS) TOP SCH (04:00)
[2017-01-01] MEDS: METHOCARBAMOL 500 MG TAB PO SCH ×3 (06:17→20:33)
[2017-01-01] MEDS: INSULIN NovoLIN REGULAR SUPPLEMENTAL SCALE SQ SCH ×4 (08:00→20:34)
[2017-01-01] MEDS: SODIUM CHLORIDE 0.9% FLUSH 10 ML FLUSH IV FLUSH SCH ×2 (08:30→20:32)
[2017-01-01 08:33] VITALS: BP 102/71; PULSE 102; RESP 20; TEMP 98.2; O2SAT 98
[2017-01-01] MEDS: THIAMINE HCL 100 MG TAB PO SCH (09:39)
[2017-01-01] MEDS: DOCUSATE SODIUM 50 MG/SENNA 8.6 MG TAB PO SCH ×2 (09:39→20:33)
[2017-01-01] MEDS: MULTIVITAMIN TAB PO SCH (09:39)
[2017-01-01] MEDS: FOLIC ACID 1 MG TAB PO SCH (09:39)
[2017-01-01] MEDS: PANTOPRAZOLE SOD 40 MG DELAYED RELEASE TAB PO SCH (09:39)
[2017-01-01] MEDS: oxyCODONE HCL 40 MG CONTROLLED RELEASE TAB PO SCH ×2 (09:40→20:33)
--- NOTE | 2017-01-01 11:39 | HHI.PR ---
Subjective Remarks ain in his back. Also has pain with deep inspiration. No fever or chills. No cough. No change in vision or new motor deficit. Denies chest pain or sob. Objective Vitals Vital Signs Date Time Temp Pulse Resp B/P (MAP) Pulse Ox O2 Delivery O2 Flow Rate FiO2 01/01/17 10:43 18 01/01/17 09:37 18 01/01/17 08:33 98.2 102 20 102/71 (81) 98 01/01/17 00:20 98.3 115 17 99/75 (83) 97 12/31/16 20:45 98.2 106 16 114/84 (94) 97 12/31/16 18:44 18 12/31/16 16:00 98.3 96 18 96/53 (67) 98 12/31/16 12:00 98.8 106 18 97/57 (70) 96 I/O 12/31/16 12/31/16 12/31/16 01/01/17 01/01/17 01/01/17 07:00 15:00 23:00 07:00 15:00 23:00 Intake Total 2800 ml 2500 ml 3000 ml Output Total 1000 ml 1000 ml 3000 ml Balance 1800 ml 1500 ml 0 ml Intake Oral 2800 ml 2500 ml 3000 ml Output Urine Total 1000 ml 1000 ml 3000 ml # Voids 4 # Bowel Movements 0 0 0 Imaging Last Impressions Thoracic Spine MRI 12/27/16 0000 Signed Impressions: Service Date/Time: Tuesday, December 27, 2016 12:44 - CONCLUSION: 1. When compared to the prior study there has been progression in the discitis/osteomyelitis with worsening osteomyelitis extending from T4-T7 and development of a new epidural abscess that extends into the paraspinal soft tissues posteriorly. The anterior paraspinal fluid collection is smaller from the prior study. Gopal Cates Jr., MD Chest CT 12/21/16 0000 Signed Impressions: Service Date/Time: December 11:52 - CONCLUSION: 1. Abnormal paraspinal fluid and soft tissue containing gas highly suspicious for a paraspinal abscess. This finding is similar distribution but decreased from the prior exam. It extends from approximately T3-T8. 2. There is an open wound on the midline back with contiguous subcutaneous air collection which extends to the area of prior laminectomy. There is a small amount of air within the spinal canal, likely in the epidural space. 3. Focal airspace consolidation in the right lower lobe with partial cavitation measuring approximately 2.3 x 1.1 cm. There was an area of consolidation on the prior examination and in identical location. However, it has decreased in size from the prior study. 4. Stable sclerosis and partial destruction of what is thought to be the T7 vertebral body. 5. Small bilateral pleural effusions. Roshan Galvez MD Abscess Drainage CT 12/21/16 0000 Signed Impressions: Service Date/Time: December 12:17 - CONCLUSION: Uncomplicated CT guided aspiration of the paraspinal fluid collection. I was only able to aspirate approximately 1-2 cc of reddish foul-smelling fluid. The sample was saved and sent to the lab for microbiological analysis. Roshan Galvez MD Chest X-Ray 12/20/16 0000 Signed Impressions: Service Date/Time: Tuesday, December 20, 2016 07:45 - CONCLUSION: Underinflation with atelectasis at the lung bases. Otherwise, no acute finding is appreciated. Roshan Galvez MD Objective Remarks GENERAL: 41-year-old male, very skinny, resting in bed in no acute distress. Bitemporal waisting. SKIN: Warm and dry. Multiple tattoos bilateral upper extremities CARDIOVASCULAR: Tachycardia, RR. S1, S2 no S4. Do not appreciate murmur RESPIRATORY: Clear to auscultation. Breath sounds equal bilaterally. GASTROINTESTINAL: Abdomen soft, non-tender, nondistended. Hepatic and splenic margins not palpable. MUSCULOSKELETAL: Extremities without significant peripheral edema. Noted 3 x 3 open abscess/erythema with good granulation tissue over around T2/3 thoracic spine NEUROLOGICAL: Awake and alert. No obvious cranial nerve deficits. Motor grossly within normal limits. Five out of 5 muscle strength in the arms and legs. Normal speech. 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 - Osteomyelitis of vertebra, site unspecified (2) Gastroesophageal reflux disease ICD Code: K21.9 - Gastro-esophageal reflux disease without esophagitis (3) Acute kidney injury ICD Code: N17.9 - Acute kidney failure, unspecified (4) Thrombocytosis ICD Code: D47.3 - Essential (hemorrhagic) thrombocythemia (5) Microcytic anemia ICD Code: D50.9 - Iron deficiency anemia, unspecified (6) Leukocytosis ICD Code: D72.829 - Elevated white blood cell count, unspecified (7) Hyperkalemia ICD Code: E87.5 - Hyperkalemia (8) Discitis ICD Code: M46.40 - Discitis Status: Acute (9) Renal failure ICD Code: N19 - Renal failure Status: Acute (10) Intravenous drug abuse in remission ICD Code: F19.10 - Intravenous drug abuse in remission Status: Acute (11) HTN (hypertension) ICD Code: I10 - Essential (primary) hypertension Status: Acute (12) Osteomyelitis ICD Code: M86.9 - Osteomyelitis Status: Acute (13) Tobacco abuse ICD Code: Z72.0 - Tobacco abuse Status: Acute (14) Pulmonary abscess ICD Code: J85.2 - Abscess of lung without pneumonia Status: Acute Assessment and Plan Neuro/Psych: T5/6 through T7/8 discitis Pathologic fractures T5, 6 and 7. 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 On percocet per pain sclae 1-5 , dilaudid for pain 6-10 and add dilaudid 0.5 for breakthrough pain . Consult palliative care for bass management. Previously OxyContin 40 mg twice a day with Dilaudid 4 mg every 4 hours when necessary breakthrough pain Currently on amitriptyline 25 mg a night for depression Thiamine, multivitamin and folate daily Neurosurgery/Dr. Pickard consulted, ff MRI repeat 12/27/16 reviewed findings discussed with Dr Cruz ID specialist. patient with progression of osteomyelitis /discitis. Neurosurgery reevaluated for surgical intervention. Plan for surgical intervention. CV: Sinus tachycardia 2-D echocardiogram 05/29 revealed EF 55-60%. No regional wall motion abnormality. Currently normal saline at 84 cc an hour. Resp: Tobaccoism Nasal cannula to maintain saturations greater than or equal to 92% Incentive spirometry while awake As needed albuterol aerosols Chest x-ray 12/20 revealed no acute findings GI: Regular diet Pantoprazole 40 mg daily for GI prophylaxis Docusate sodium/senna 1 tablet twice daily for bowel regimen Follow-up liver function tests : History of suprapubic catheter Currently no acute issues Endo: Sliding-scale insulin if indicated to maintain euglycemia Renal: Acute kidney injury - resolved Monitor urine output Accurate I's and O's Currently on normal saline at 84 cc an hour Repeat labs in a.m. Heme: Microcytic anemia Check iron studies/ferritin. Patient with iron deficiency anemia. Start ferrous sulfate 325 mg by mouth twice a day. Peripheral smear Hemoccult stool Follow-up CBC in a.m. Severe protein calorie malnutrition, low BMI of 17.6, muscle waiting. 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 Consult line out worker. ID: Paravertebral abscess With MSSA and Ancef is started 12/26/16 per ID recommendations and vancomycin/ cefepime was DCd 12/20 - Blood cultures no growth. Wound culture with staph aureus. Infectious disease consultation appreciated with Dr. Cruz. Awaiting follow- up Mycobacterium abscesses cultures. S/P paravertebral abscess aspiration by IR on 12/22/16 with 2 cc of foul smelling red fluid. Cultures staph Aureus pansensitive. ID specialist also ff. Spoke with Dr Mike ID specialist. MRI back 12/27/16 per ID recommendations Back wound with large amount of pus, abx changed to Ancef per ID. Anticipate long course of IV abx PICC per ID MSK: PT evaluate and treat Severe Protein calorie malnutrition BMI of 78, low albumin of 1.7. He can repeat, muscle wasting. Bitemporal wasting. 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 Access - Utilize peripheral IV. Central line if indicated Prophylaxis - GI - pantoprazole - DVT - SCD/holding pharmacological prophylaxis in light of possible surgical intervention Consult PT and OT Discussed with the patient, nurse, ID specialist Dr Cruz and neurosurgery DC plan: difficult DC , discussed with [facility] case management. Plan to DC to SNF. CM ff for DC plan as well. Patient will need wound care, PT, IV antibiotic Ancef per ID recommendations, and pain management at DC. To follow up as Op with PCP and consultants. Needs clearance by neurosurgery and ID to arrange abx at DC also. Patient however with MRI showing worsening discitis/osteomyelitis , reevaluation by neurosurgery for surgical intervention. Not cleared for DC yet. Plan for surgical intervention per neurosurgery poss today or tomorrow Problem Qualifiers (1) Gastroesophageal reflux disease: Qualified Codes: K21.9 - Gastro-esophageal reflux disease without esophagitis (2) Leukocytosis: Qualified Codes: D72.829 - Elevated white blood cell count, unspecified (3) Discitis: Qualified Codes: M46.44 - Discitis, unspecified, thoracic region (4) Renal failure: Qualified Codes: N17.9 - Acute kidney failure, unspecified; N18.9 - Chronic kidney disease, unspecified (5) HTN (hypertension): Qualified Codes: I10 - Essential (primary) hypertension (6) Osteomyelitis: Qualified Codes: M86.8X0 - Other osteomyelitis, multiple sites (7) Pulmonary abscess: Qualified Codes: J85.2 - Abscess of lung without pneumonia Ariadna Sotomayor MD Jan 01, 2017 11:39
[2017-01-01 12:13] VITALS: BP 95/55; PULSE 100; RESP 20; TEMP 97.9; O2SAT 96
[2017-01-01] MEDS: FERROUS SULFATE 325 MG (65 MG ELEMENTAL IRON) TAB PO SCH ×2 (12:29→16:32)
[2017-01-01 16:49] VITALS: BP 126/88; PULSE 93; RESP 20; TEMP 97.9; O2SAT 98
[2017-01-01 18:08] LABS: AUTOMATED NEUTROPHIL # 2.3 TH/MM3 (1.8-7.7); BASOPHIL % 0.6 % (0.0-2.0); EOSINOPHIL # 0.2 TH/MM3 (0-0.4); EOSINOPHIL % 5.5 % (0.0-4.0); HEMATOCRIT 30.4 % (39.0-51.0); HEMO FLAGS DIFF FINAL; LYMPH % 33.4 % (9.0-44.0); LYMPHOCYTE # 1.5 TH/MM3 (1.0-4.8); MEAN CELL VOLUME 70.7 FL (80.0-100.0); MEAN CORPUSCULAR HEMOGLOBIN 23.2 PG (27.0-34.0); MEAN CORPUSCULAR HGB CONC 32.9 % (32.0-36.0); MONO % 9.8 % (0.0-8.0); NEUT % 50.7 % (16.0-70.0); PLATELET COUNT 413 TH/MM3 (150-450); RED CELL DISTRIBUTION WIDTH 20.7 % (11.6-17.2); WHITE BLOOD COUNT 4.5 TH/MM3 (4.0-11.0)
[2017-01-01] MEDS ORDERED: CHLORHEXIDINE GLUCONATE 2 % 1 PACK (2 CLOTHS) TOPICAL PRN (18:15)
[2017-01-01] MEDS ORDERED: INSULIN HUMAN REGULAR 1,000 UNITS/10 ML VIAL SQ PRN (18:15)
[2017-01-01] MEDS ORDERED: LACTATED RINGER'S 1000 ML IV PRN (18:15)
[2017-01-01] MEDS ORDERED: METOPROLOL TARTRATE 25 MG TAB PO PRN (18:15)
[2017-01-01] MEDS ORDERED: SODIUM CHLORID 0.9% 500 ML IV PRN (18:15)
[2017-01-01] MEDS ORDERED: POVIDONE IODINE 5% (ANTISEPSIS KIT) 4 APPLICATIONS EACH NARE PRN (18:15)
[2017-01-01 18:29] LABS: APTT (PATIENT) 27.8 SEC (24.3-30.1); PROTHROMBIN TIME - PATIENT 10.9 SEC (9.8-11.6)
[2017-01-01] MEDS: AMITRIPTYLINE HCL 25 MG TAB PO SCH (20:33)
[2017-01-02] VITALS: BP 116/64; PULSE 110; RESP 20; TEMP 98.2; O2SAT 92
[2017-01-02] MEDS: HYDROmorphone HCL PF 0.5 MG/0.5 ML SYRINGE IV PUSH PRN ×5 (01:04→17:52)
[2017-01-02] MEDS: ceFAZolin 2 GM PREMIX 50 ML IV SCH ×3 (02:45→18:13)
[2017-01-02] MEDS: HYDROmorphone HCL PF 1 MG/ML VIAL IV PUSH PRN ×5 (02:46→23:39)
[2017-01-02] MEDS: CHLORHEXIDINE GLUCONATE 2 % 1 PACK (2 CLOTHS) TOP SCH (04:00)
[2017-01-02 06:30] LABS: BASOPHIL % 1.1 % (0.0-2.0); EOSINOPHIL # 0.3 TH/MM3 (0-0.4); EOSINOPHIL % 6.4 % (0.0-4.0); HEMATOCRIT 30.4 % (39.0-51.0); HEMO FLAGS DIFF FINAL; LYMPH % 31.9 % (9.0-44.0); LYMPHOCYTE # 1.3 TH/MM3 (1.0-4.8); MEAN CELL VOLUME 71.1 FL (80.0-100.0); MEAN CORPUSCULAR HEMOGLOBIN 23.2 PG (27.0-34.0); MEAN CORPUSCULAR HGB CONC 32.6 % (32.0-36.0); MONO % 10.4 % (0.0-8.0); NEUT % 50.2 % (16.0-70.0); PLATELET COUNT 389 TH/MM3 (150-450); RED BLOOD COUNT 4.27 MIL/MM3 (4.50-5.90); RED CELL DISTRIBUTION WIDTH 20.8 % (11.6-17.2)
[2017-01-02] MEDS: METHOCARBAMOL 500 MG TAB PO SCH ×3 (06:41→23:36)
[2017-01-02 06:42] LABS: APTT (PATIENT) 27.5 SEC (24.3-30.1); PROTHROMBIN TIME - PATIENT 10.7 SEC (9.8-11.6)
[2017-01-02 06:51] LABS: BICARBONATE 30.4 MEQ/L (21.0-32.0); MAGNESIUM 1.8 MG/DL (1.5-2.5); POTASSIUM 4.2 MEQ/L (3.5-5.1)
[2017-01-02 07:55] VITALS: BP 91/58; PULSE 99; RESP 18; TEMP 98; O2SAT 97
--- NOTE | 2017-01-02 08:28 | PD.PN.STU ---
Subjective Remarks Still complains of pain in his upper back region, describes as sharp pain rated at 8/10. He is NPO, reports that he is hungry and thirsty. He feels constipated , last BM was 3 days ago. Denies N/V/D. No fever or chills. No chest pain or SOB. He is scheduled for surgery today. Objective Vitals Vital Signs Date Time Temp Pulse Resp B/P (MAP) Pulse Ox O2 Delivery O2 Flow Rate FiO2 01/02/17 07:55 98.0 99 18 91/58 (69) 97 01/02/17 00:00 98.2 110 20 116/64 (81) 92 01/01/17 17:05 18 01/01/17 16:49 97.9 93 20 126/88 (101) 98 01/01/17 15:30 18 01/01/17 12:13 97.9 100 20 95/55 (68) 96 01/01/17 10:43 18 01/01/17 08:33 98.2 102 20 102/71 (81) 98 I/O 01/01/17 01/01/17 01/01/17 01/02/17 01/02/17 01/02/17 07:00 15:00 23:00 07:00 15:00 23:00 Intake Total 3000 ml 720 ml 50 ml Output Total 3000 ml 700 ml 300 ml Balance 0 ml 20 ml 50 ml -300 ml Intake Oral 3000 ml 720 ml IV Total 50 ml Output Urine Total 3000 ml 700 ml 300 ml # Voids 2 # Bowel Movements 0 0 0 Result Diagram: 01/02/17 0550 01/02/17 0550 Objective Remarks GENERAL: 41-year-old male, very skinny, resting in bed in no acute distress. Bitemporal waisting. He is non-talkative and seems somewhat agitated. SKIN: Warm and dry. Multiple tattoos bilateral upper extremities CARDIOVASCULAR: Normal rate and rhythm. S1, S2 no S4. No gallops, rubs, or murmurs appreciated. RESPIRATORY: Clear to auscultation. Breath sounds equal bilaterally. GASTROINTESTINAL: Abdomen soft, non-tender, nondistended. Hepatic and splenic margins not palpable. MUSCULOSKELETAL: Extremities without significant peripheral edema. Noted 3 x 3 open abscess/erythema with good granulation tissue over around T2/3 thoracic spine NEUROLOGICAL: Awake and alert. No obvious cranial nerve deficits. Motor grossly within normal limits. Five out of 5 muscle strength in the arms and legs. Normal speech. A/P Assessment and Plan Seen and examined independently and with the student . Case was discussed at length with the Josie Stockton MSII. Agree with the above note. Josie Stockton Jan 02, 2017 08:27 Ariadna Sotomayor MD Jan 03, 2017 15:56
[2017-01-02] MEDS: MULTIVITAMIN TAB PO SCH (09:34)
[2017-01-02] MEDS: PANTOPRAZOLE SOD 40 MG DELAYED RELEASE TAB PO SCH (09:34)
[2017-01-02] MEDS: THIAMINE HCL 100 MG TAB PO SCH (09:34)
[2017-01-02] MEDS: DOCUSATE SODIUM 50 MG/SENNA 8.6 MG TAB PO SCH ×2 (09:35→23:35)
[2017-01-02] MEDS: SODIUM CHLORIDE 0.9% FLUSH 10 ML FLUSH IV FLUSH SCH (09:35)
[2017-01-02] MEDS: oxyCODONE HCL 40 MG CONTROLLED RELEASE TAB PO SCH ×2 (09:35→23:35)
[2017-01-02] MEDS: FOLIC ACID 1 MG TAB PO SCH (09:35)
[2017-01-02] MEDS: INSULIN NovoLIN REGULAR SUPPLEMENTAL SCALE SQ SCH ×4 (09:36→21:00)
--- NOTE | 2017-01-02 11:11 | HHI.NSPN ---
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 He was most recently seen in May 2016 when he presented with a thoracic osteomyelitis-discitis with paraspinous abscess and underwent a T4-5 laminectomy, evacuation abscess. Cultures grew mycobacterium abscessus, for which he was placed on IV antibiotic treatment initially . He returned in June 2016 with persistent/recurrent infection, having been noncompliant with the IV treatment. He was placed on oral medication including Biaxine, which he was also noncompliant with. He states that he was feeling relatively well until a week ago when he developed right hip pain. He has had a previous ORIF of the right hip but states that it usually does not bother him. 2 days ago he noted a cutaneous infection in the mid thoracic region and went to [facility] emergency room for evaluation. He states that he was released and told to come to [place] for further treatment. He has noted drainage from the infection site in the past 1-2 days. He denies any fevers or chills. He complains of a productive cough or couple of weeks. No definite bowel or bladder dysfunction. He states that he has been able ambulate well without any definite numbness in the extremities except for the right hip. 12/26: The patient this morning is awake and alert when seen. He complains of back and right hip pain. He denies any numbness or tingling to the extremities. 12/29: When seen this morning the patient is awake and alert. He continues to have pain to the back and right hip. He went for an MRI of the thoracic spine on . 01/02: This morning the patient is awake and alert. He complains of pain to the neck and back with the worse being the upper back at the wound. He also has pain to the right lateral hip. (Darrion Garcia) System Review Comments MUSCULOSKELETAL: Pain to the neck and back with the upper back the worse. Pain to the right hip. (Darrion Garcia) Exam Results 12/31/16 12/31/16 01/01/17 01/01/17 01/02/17 01/02/17 06:00 18:00 06:00 18:00 06:00 18:00 Intake Total 5300 ml 5500 ml 720 ml 50 ml Output Total 2600 ml 4000 ml 700 ml 300 ml Balance 2700 ml 1500 ml 20 ml -250 ml Intake Oral 5300 ml 5500 ml 720 ml IV Total 50 ml Output Urine Total 2600 ml 4000 ml 700 ml 300 ml # Voids 4 2 # Bowel Movements 2 0 0 0 0 Vital Signs Date Time Temp Pulse Resp B/P (MAP) Pulse Ox O2 Delivery O2 Flow Rate FiO2 01/02/17 07:55 98.0 99 18 91/58 (69) 97 01/02/17 00:00 98.2 110 20 116/64 (81) 92 01/01/17 17:05 18 01/01/17 16:49 97.9 93 20 126/88 (101) 98 01/01/17 15:30 18 01/01/17 12:13 97.9 100 20 95/55 (68) 96 01/01/17 10:43 18 01/01/17 08:33 98.2 102 20 102/71 (81) 98 01/01/17 00:20 98.3 115 17 99/75 (83) 97 12/31/16 20:45 98.2 106 16 114/84 (94) 97 12/31/16 16:00 98.3 96 18 96/53 (67) 98 12/31/16 12:00 98.8 106 18 97/57 (70) 96 12/31/16 08:00 97.5 86 19 104/67 (79) 96 12/30/16 20:45 98.2 109 17 105/77 (86) 99 12/30/16 16:00 98.4 98 16 118/80 (93) 98 (Darrion Garcia) Physical Examination GENERAL: Thin male who appears mildy uncomfortable, affect flat, no distress noted. SKIN: Intact dressing to wound dehiscence w/shadowing, no erythema or streaking. NECK: Midline cervical spine minimally TTP, no JVD, trachea midline. MUSCULOSKELETAL: JENKINS w/o difficulty. Right hip TTP posteriorly & laterally. Upper thoracic spine TTP and remainder of thoracolumbar spine minimally TTP. NEUROLOGICAL: AAOx3. Speech clear & appropriate. Follows simple commands w/o difficulty. Sensation intact to light touch to all extremities. Motor strength is 5/5 to all major flexion & extension muscle groups of the BUE & LLE. Motor strength to the RLE is 4/5 to the iliopsoas, 4+/5 quadriceps, 3+ to 4/5 hamstrings, 4 to 4+ tibialis anterior, 3/5 gastrocnemius and 2/5 extensor hallucis longus. Pain to the right hip may have limited patient's ability when the RLE was evaluated. (Darrion Garcia) Lab, Micro, Other Results Laboratory Tests Test 01/01/17 17:00 01/02/17 05:50 White Blood Count 4.5 TH/MM3 4.0 TH/MM3 Red Blood Count 4.30 MIL/MM3 4.27 MIL/MM3 Hemoglobin 10.0 GM/DL 9.9 GM/DL Hematocrit 30.4 % 30.4 % Mean Corpuscular Volume 70.7 FL 71.1 FL Mean Corpuscular Hemoglobin 23.2 PG 23.2 PG Mean Corpuscular Hemoglobin Concent 32.9 % 32.6 % Red Cell Distribution Width 20.7 % 20.8 % Platelet Count 413 TH/MM3 389 TH/MM3 Mean Platelet Volume 7.9 FL 7.5 FL Neutrophils (%) (Auto) 50.7 % 50.2 % Lymphocytes (%) (Auto) 33.4 % 31.9 % Monocytes (%) (Auto) 9.8 % 10.4 % Eosinophils (%) (Auto) 5.5 % 6.4 % Basophils (%) (Auto) 0.6 % 1.1 % Neutrophils # (Auto) 2.3 TH/MM3 2.0 TH/MM3 Lymphocytes # (Auto) 1.5 TH/MM3 1.3 TH/MM3 Monocytes # (Auto) 0.4 TH/MM3 0.4 TH/MM3 Eosinophils # (Auto) 0.2 TH/MM3 0.3 TH/MM3 Basophils # (Auto) 0.0 TH/MM3 0.0 TH/MM3 CBC Comment DIFF FINAL DIFF FINAL Differential Comment Prothrombin Time 10.9 SEC 10.7 SEC Prothromb Time International Ratio 1.0 RATIO 1.0 RATIO Activated Partial Thromboplast Time 27.8 SEC 27.5 SEC Blood Urea Nitrogen 10 MG/DL 12 MG/DL Creatinine 0.61 MG/DL 0.74 MG/DL Random Glucose 92 MG/DL 92 MG/DL Calcium Level 8.5 MG/DL 8.8 MG/DL Sodium Level 136 MEQ/L 134 MEQ/L Potassium Level 4.0 MEQ/L 4.2 MEQ/L Chloride Level 98 MEQ/L 97 MEQ/L Carbon Dioxide Level 29.0 MEQ/L 30.4 MEQ/L Anion Gap 9 MEQ/L 7 MEQ/L Estimat Glomerular Filtration Rate 144 ML/MIN 115 ML/MIN Magnesium Level 1.8 MG/DL (Darrion Garcia) Medical Decision Making Impression and Plan Impression: 1. Persistent T4-5-6 level discitis-osteomyelitis, paraspinous abscess with new area of subcutaneous abscess and adjacent wound dehiscence. MRI thoracic & lumbar spine from [facility] with chronic T5-6- 7 fractures with T4-5-6 discitis and paraspinous inflammation-abscess with extension towards the right lung. Findings are relatively stable compared to previous imaging studies from May and June 2016, however there is now a subcutaneous fluid collection present at the T4-6 level. MRI thoracic spine demonstrated worsening of the patient's osteomyelitis from T4-T7 and development of an epidural abscess extending into the paraspinal soft tissues when compared to the patient's MRI. The anterior paraspinal fluid collection is smaller. Patient doing well with persistent back pain. Thoracic surgical wound w/ serosanguinous drainage. Some weakness to RLE which may be r/t pain, o/w neurologically intact. Reviewed labs for today. Hgb stable. Platelets WNL. No leukocytosis. Mild hyponatremia. Plan: Plan of care discussed with patient. Antibiotics per Infectious Disease. Mobilise patient, no brace required when OOB. No twisting, reaching, bending, pushing, pulling or other strenuous activity. Patient to go to OR for debridement of thoracic surgical wound and I&D of epidural abscess. (Darrion Garcia) Attending Statement The exam, history, and the medical decision-making described in the above note were completed with the assistance of the mid-level provider. I reviewed and agree with the findings presented. I attest that I had a [id number] encounter with the patient on the same day, and personally performed and documented my assessment and findings in the medical record. Plan to proceed to operating room for wound debridement, evacuation abscess today. (Jeffry Pickard MD) Darrion Garcia Jan 02, 2017 11:11 Jeffry Pickard MD Jan 03, 2017 22:38
[2017-01-02] MEDS: FERROUS SULFATE 325 MG (65 MG ELEMENTAL IRON) TAB PO SCH ×2 (11:23→17:51)
[2017-01-02] MEDS ORDERED: GLYCOPYRROLATE 1 MG/5 ML SYRINGE IV PUSH ONE (12:00)
[2017-01-02] MEDS ORDERED: DEXAMETHASONE SOD PHOS 4 MG/ML VIAL IV ONE (12:00)
[2017-01-02] MEDS ORDERED: NEOSTIGMINE 3 MG/3 ML SYR IV ONE (12:00)
[2017-01-02] MEDS ORDERED: PHENYLEPH/NS 1000 MCG/10 ML SYR IV ONE (12:00)
[2017-01-02] MEDS ORDERED: ROCURONIUM INJ 50 MG/5 ML SYRINGE IV PUSH ONE (12:00)
[2017-01-02] MEDS ORDERED: PROPOFOL 200 MG/20 ML AMP IV ONE (12:00)
[2017-01-02] MEDS ORDERED: ONDANSETRON HCL 4 MG/2 ML VIAL IV ONE (12:00)
[2017-01-02] MEDS ORDERED: LIDOCAINE HCL 1% PF 5 ML SYRINGE OTHER ONE (12:00)
[2017-01-02] MEDS ORDERED: LACTATED RINGER'S 1000 ML INJ 1,000 ML IV ONE (12:00)
[2017-01-02] MEDS ORDERED: ePHEDrine/NS 25 MG/5 ML SYR IV ONE (12:00)
[2017-01-02 12:16] VITALS: BP 119/79; PULSE 106; RESP 19; TEMP 97.7; O2SAT 97
[2017-01-02] MEDS ORDERED: POTASSIUM CHLORIDE 10 MEQ CONTROLLED RELEASE TAB PO ONE (14:00)
--- NOTE | 2017-01-02 14:12 | HHI.PR ---
Subjective Remarks The patient was seen earlier today. He is sleepy appears in not acute distress at this time. No nausea or vomiting no diarrhea or constipation. Has pain however did not have more pain medications today. As numbness on and off his left side mainly the left leg. Denies fever or chills. Eating better. Awaiting for surgery Objective Vitals Vital Signs Date Time Temp Pulse Resp B/P (MAP) Pulse Ox O2 Delivery O2 Flow Rate FiO2 01/02/17 12:16 97.7 106 19 119/79 (92) 97 01/02/17 07:55 98.0 99 18 91/58 (69) 97 01/02/17 00:00 98.2 110 20 116/64 (81) 92 01/01/17 17:05 18 01/01/17 16:49 97.9 93 20 126/88 (101) 98 01/01/17 15:30 18 I/O 01/01/17 01/01/17 01/01/17 01/02/17 01/02/17 01/02/17 07:00 15:00 23:00 07:00 15:00 23:00 Intake Total 3000 ml 720 ml 50 ml Output Total 3000 ml 700 ml 300 ml Balance 0 ml 20 ml 50 ml -300 ml Intake Oral 3000 ml 720 ml IV Total 50 ml Output Urine Total 3000 ml 700 ml 300 ml # Voids 2 # Bowel Movements 0 0 0 Result Diagram: 01/02/17 0550 01/02/17 0550 Imaging Last Impressions Thoracic Spine MRI 12/27/16 0000 Signed Impressions: Service Date/Time: Tuesday, December 27, 2016 12:44 - CONCLUSION: 1. When compared to the prior study there has been progression in the discitis/osteomyelitis with worsening osteomyelitis extending from T4-T7 and development of a new epidural abscess that extends into the paraspinal soft tissues posteriorly. The anterior paraspinal fluid collection is smaller from the prior study. Gopal Cates Jr., MD Chest CT 12/21/16 0000 Signed Impressions: Service Date/Time: December 11:52 - CONCLUSION: 1. Abnormal paraspinal fluid and soft tissue containing gas highly suspicious for a paraspinal abscess. This finding is similar distribution but decreased from the prior exam. It extends from approximately T3-T8. 2. There is an open wound on the midline back with contiguous subcutaneous air collection which extends to the area of prior laminectomy. There is a small amount of air within the spinal canal, likely in the epidural space. 3. Focal airspace consolidation in the right lower lobe with partial cavitation measuring approximately 2.3 x 1.1 cm. There was an area of consolidation on the prior examination and in identical location. However, it has decreased in size from the prior study. 4. Stable sclerosis and partial destruction of what is thought to be the T7 vertebral body. 5. Small bilateral pleural effusions. Roshan Galvez MD Abscess Drainage CT 12/21/16 0000 Signed Impressions: Service Date/Time: December 12:17 - CONCLUSION: Uncomplicated CT guided aspiration of the paraspinal fluid collection. I was only able to aspirate approximately 1-2 cc of reddish foul-smelling fluid. The sample was saved and sent to the lab for microbiological analysis. Roshan Galvez MD Chest X-Ray 12/20/16 0000 Signed Impressions: Service Date/Time: Tuesday, December 20, 2016 07:45 - CONCLUSION: Underinflation with atelectasis at the lung bases. Otherwise, no acute finding is appreciated. Roshan Galvez MD Objective Remarks GENERAL: 41-year-old male, very skinny, resting in bed in no acute distress. Bitemporal waisting. SKIN: Warm and dry. Multiple tattoos bilateral upper extremities CARDIOVASCULAR: Tachycardia, RR. S1, S2 no S4. Do not appreciate murmur RESPIRATORY: Clear to auscultation. Breath sounds equal bilaterally. GASTROINTESTINAL: Abdomen soft, non-tender, nondistended. Hepatic and splenic margins not palpable. MUSCULOSKELETAL: Extremities without significant peripheral edema. Noted 3 x 3 open abscess/erythema with good granulation tissue over around T2/3 thoracic spine NEUROLOGICAL: Awake and alert. No obvious cranial nerve deficits. Motor grossly within normal limits. Five out of 5 muscle strength in the arms and legs. Normal speech. 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 - Osteomyelitis of vertebra, site unspecified (2) Gastroesophageal reflux disease ICD Code: K21.9 - Gastro-esophageal reflux disease without esophagitis (3) Acute kidney injury ICD Code: N17.9 - Acute kidney failure, unspecified (4) Thrombocytosis ICD Code: D47.3 - Essential (hemorrhagic) thrombocythemia (5) Microcytic anemia ICD Code: D50.9 - Iron deficiency anemia, unspecified (6) Leukocytosis ICD Code: D72.829 - Elevated white blood cell count, unspecified (7) Hyperkalemia ICD Code: E87.5 - Hyperkalemia (8) Discitis ICD Code: M46.40 - Discitis Status: Acute (9) Renal failure ICD Code: N19 - Renal failure Status: Acute (10) Intravenous drug abuse in remission ICD Code: F19.10 - Intravenous drug abuse in remission Status: Acute (11) HTN (hypertension) ICD Code: I10 - Essential (primary) hypertension Status: Acute (12) Osteomyelitis ICD Code: M86.9 - Osteomyelitis Status: Acute (13) Tobacco abuse ICD Code: Z72.0 - Tobacco abuse Status: Acute (14) Pulmonary abscess ICD Code: J85.2 - Abscess of lung without pneumonia Status: Acute Assessment and Plan Neuro/Psych: T5/6 through T7/8 discitis Pathologic fractures T5, 6 and 7. 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 On percocet per pain sclae 1-5 , dilaudid for pain 6-10 and add dilaudid 0.5 for breakthrough pain . Consult palliative care for bass management. Previously OxyContin 40 mg twice a day with Dilaudid 4 mg every 4 hours when necessary breakthrough pain Currently on amitriptyline 25 mg a night for depression Thiamine, multivitamin and folate daily Neurosurgery/Dr. Pickard consulted, ff MRI repeat 12/27/16 reviewed findings discussed with Dr Cruz ID specialist. patient with progression of osteomyelitis /discitis. Neurosurgery reevaluated for surgical intervention. Plan for surgical intervention. CV: Sinus tachycardia 2-D echocardiogram 05/29 revealed EF 55-60%. No regional wall motion abnormality. Currently normal saline at 84 cc an hour. Resp: Tobaccoism Nasal cannula to maintain saturations greater than or equal to 92% Incentive spirometry while awake As needed albuterol aerosols Chest x-ray 12/20 revealed no acute findings GI: Regular diet Pantoprazole 40 mg daily for GI prophylaxis Docusate sodium/senna 1 tablet twice daily for bowel regimen Follow-up liver function tests : History of suprapubic catheter Currently no acute issues Endo: Sliding-scale insulin if indicated to maintain euglycemia Renal: Acute kidney injury - resolved Monitor urine output Accurate I's and O's Currently on normal saline at 84 cc an hour Repeat labs in a.m. Heme: Microcytic anemia Check iron studies/ferritin. Patient with iron deficiency anemia. Start ferrous sulfate 325 mg by mouth twice a day. Peripheral smear Hemoccult stool Follow-up CBC in a.m. Severe protein calorie malnutrition, low BMI of 17.6, muscle waiting. 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 Consult receptionist nurse. ID: Paravertebral abscess With MSSA and Ancef is started 12/26/16 per ID recommendations and vancomycin/ cefepime was DCd 12/20 - Blood cultures no growth. Wound culture with staph aureus. Infectious disease consultation appreciated with Dr. Cruz. Awaiting follow- up Mycobacterium abscesses cultures. S/P paravertebral abscess aspiration by IR on 12/22/16 with 2 cc of foul smelling red fluid. Cultures staph Aureus pansensitive. ID specialist also ff. Spoke with Dr Mike ID specialist. MRI back 12/27/16 per ID recommendations Back wound with large amount of pus, abx changed to Ancef per ID. Anticipate long course of IV abx PICC per ID MSK: PT evaluate and treat Severe Protein calorie malnutrition BMI of 78, low albumin of 1.7. He can repeat, muscle wasting. Bitemporal wasting. 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 Access - Utilize peripheral IV. Central line if indicated Prophylaxis - GI - pantoprazole - DVT - SCD/holding pharmacological prophylaxis in light of possible surgical intervention Consult PT and OT Discussed with the patient, nurse, ID specialist Dr Cruz and neurosurgery DC plan: difficult DC , discussed with [facility] case management. Plan to DC to SNF. CM ff for DC plan as well. Patient will need wound care, PT, IV antibiotic Ancef per ID recommendations, and pain management at DC. To follow up as Op with PCP and consultants. Needs clearance by neurosurgery and ID to arrange abx at DC also. Patient however with MRI showing worsening discitis/osteomyelitis , reevaluation by neurosurgery for surgical intervention. Not cleared for DC yet. Plan for surgical intervention per neurosurgery today. Problem Qualifiers (1) Gastroesophageal reflux disease: Qualified Codes: K21.9 - Gastro-esophageal reflux disease without esophagitis (2) Leukocytosis: Qualified Codes: D72.829 - Elevated white blood cell count, unspecified (3) Discitis: Qualified Codes: M46.44 - Discitis, unspecified, thoracic region (4) Renal failure: Qualified Codes: N17.9 - Acute kidney failure, unspecified; N18.9 - Chronic kidney disease, unspecified (5) HTN (hypertension): Qualified Codes: I10 - Essential (primary) hypertension (6) Osteomyelitis: Qualified Codes: M86.8X0 - Other osteomyelitis, multiple sites (7) Pulmonary abscess: Qualified Codes: J85.2 - Abscess of lung without pneumonia Ariadna Sotomayor MD Jan 02, 2017 14:11
[2017-01-02 16:21] VITALS: BP 101/80; PULSE 94; RESP 18; TEMP 98.2; O2SAT 98
[2017-01-02] MEDS ORDERED: LIDOCAINE 1%/EPINEPHrine 1:100,000 SOLN 50 ML VIAL ONE (19:20)
[2017-01-02] MEDS ORDERED: GELFOAM SIZE 100 ONE (19:53)
[2017-01-02] MEDS ORDERED: THROMBIN (TOPICAL) 5,000 UNIT VIAL ONE (19:53)
[2017-01-02] MEDS ORDERED: GENTAMICIN SULFATE 80 MG/2 ML VIAL ONE (21:11)
[2017-01-02] MEDS ORDERED: D5-1/2 NS + KCL 20 MEQ INJ 1,000 ML IV SCH (21:58)
[2017-01-02] MEDS ORDERED: SODIUM CHLORIDE 0.9% FLUSH 5 ML FLUSH IVF PRN (22:00)
--- NOTE | 2017-01-02 22:08 | PD.OP ---
Operative Report Date of Surgery: Jan 02, 2017 Preoperative Diagnosis: (1) Paraspinal abscess Thoracic paraspinous abscess Postoperative Diagnosis: (1) Paraspinal abscess Thoracic paraspinous abscess Procedure: Thoracic wound debridement, evacuation paraspinous abscess Anesthesia: Gen. Surgeon: Jeffry Pickard Medical Research Tech(s): Valentin Lares Operation and Findings: Procedure in detail: Patient was brought into the operating room and general endotracheal anesthesia induced without difficulty. ELIUD hose and sequential compression devices were placed He was placed in prone position on the [facility] Rolando table with the side bolsters and all extremities appropriately padded Appropriate timeout procedure was performed with all personal present and in agreement The thoracic region was prepped and draped in a sterile fashion 1% Xylocaine was used for local infiltration of the incision site which was made overlying the area of wound dehiscence at the upper thoracic region centered at the T5-T6 level. The incision was carried sharply down through the fascia to the lamina on the right side. The periosteal elevator was used to elevate the paraspinous musculature tissue away from the lamina and transverse process at the T5-6 level. The paraspinous tissue adjacent to the right T5 vertebral body was elevated with the Barrios elevator alongside the pedicle in order to avoid the exiting nerve roots. A culture swab of the fluid was sent for routine specimen. A moderate amount of thin purulent-appearing fluid adjacent to the anterolateral right T5-T6 vertebral bodies was released and the cavity irrigated copiously with antibiotic irrigation. Necrotic tissue in the dorsal paraspinous tissue was debrided with a Barrios elevator and the Metzenbaum scissors down to bleeding tissue. A 7 mm flat fluted drain was brought out through an incision at the right upper thoracic region secured to the skin with nylon suture. Closure was performed with 0 Vicryl interrupted for the deep fascia, 3-0 Vicryl for the subcutaneous closure, and 4-0 Vicryl running for the subcuticular closure. A silver impregnated dressing was placed over the Mastisol and Steri-Strip skin dressing. The patient was taken to recovery room in stable condition All counts were correct at the end of the case Estimated blood loss was 10 cc Culture specimen was sent to microbiology Jeffry Pickard MD Jan 02, 2017 22:08
[2017-01-02] MEDS ORDERED: DO NOT ADM ANY ANTICOAGULANT DRUGS PRN (22:15)
[2017-01-02] MEDS ORDERED: MORPHINE SULFATE 4 MG/ML INJ ONE ×2 (22:23→22:42)
[2017-01-02] MEDS: AMITRIPTYLINE HCL 25 MG TAB PO SCH (23:35)
[2017-01-03] VITALS: BP 106/76; PULSE 118; RESP 18; TEMP 97.3; O2SAT 99
[2017-01-03] MEDS: HYDROmorphone HCL PF 0.5 MG/0.5 ML SYRINGE IV PUSH PRN ×6 (00:52→22:35)
[2017-01-03] MEDS: HYDROmorphone HCL PF 1 MG/ML VIAL IV PUSH PRN ×5 (03:46→20:41)
[2017-01-03] MEDS: CHLORHEXIDINE GLUCONATE 2 % 1 PACK (2 CLOTHS) TOP SCH (03:48)
[2017-01-03] MEDS: ceFAZolin 2 GM PREMIX 50 ML IV SCH ×3 (03:48→18:47)
[2017-01-03 04:56] VITALS: BP 100/68; PULSE 111; RESP 18; TEMP 98.3; O2SAT 97
[2017-01-03] MEDS: METHOCARBAMOL 500 MG TAB PO SCH ×3 (04:58→22:35)
[2017-01-03 07:52] LABS: AUTOMATED NEUTROPHIL # 3.2 TH/MM3 (1.8-7.7); BASOPHIL % 0.7 % (0.0-2.0); EOSINOPHIL % 0.2 % (0.0-4.0); HEMATOCRIT 29.3 % (39.0-51.0); HEMO FLAGS DIFF FINAL; LYMPH % 21.9 % (9.0-44.0); MEAN CELL VOLUME 71.1 FL (80.0-100.0); MEAN CORPUSCULAR HEMOGLOBIN 24.3 PG (27.0-34.0); MEAN CORPUSCULAR HGB CONC 34.1 % (32.0-36.0); MONO % 5.4 % (0.0-8.0); NEUT % 71.8 % (16.0-70.0); PLATELET COUNT 373 TH/MM3 (150-450); RED BLOOD COUNT 4.12 MIL/MM3 (4.50-5.90); RED CELL DISTRIBUTION WIDTH 20.9 % (11.6-17.2); WHITE BLOOD COUNT 4.4 TH/MM3 (4.0-11.0)
[2017-01-03 08:00] VITALS: BP 126/76; PULSE 110; RESP 18; TEMP 98; O2SAT 100
[2017-01-03] MEDS: INSULIN NovoLIN REGULAR SUPPLEMENTAL SCALE SQ SCH ×4 (08:00→20:40)
[2017-01-03] MEDS: MULTIVITAMIN TAB PO SCH (08:21)
[2017-01-03] MEDS: FOLIC ACID 1 MG TAB PO SCH (08:21)
[2017-01-03] MEDS: DOCUSATE SODIUM 50 MG/SENNA 8.6 MG TAB PO SCH ×2 (08:21→20:40)
[2017-01-03] MEDS: PANTOPRAZOLE SOD 40 MG DELAYED RELEASE TAB PO SCH (08:21)
[2017-01-03] MEDS: oxyCODONE HCL 40 MG CONTROLLED RELEASE TAB PO SCH ×2 (08:21→20:40)
[2017-01-03] MEDS: THIAMINE HCL 100 MG TAB PO SCH (08:21)
[2017-01-03 08:22] LABS: BICARBONATE 30.7 MEQ/L (21.0-32.0); POTASSIUM 4.8 MEQ/L (3.5-5.1)
[2017-01-03] MEDS: SODIUM CHLORIDE 0.9% FLUSH 5 ML FLUSH IVF SCH ×2 (09:00→20:40)
--- NOTE | 2017-01-03 09:18 | HHI.PR ---
Subjective Remarks Complaints of pain at the surgical site. Draining some serosanguineous discharge. The patient also has tachycardia. No nausea or vomiting no diarrhea or constipation. He is eating fairly well. No fever or chills. Objective Vitals Vital Signs Date Time Temp Pulse Resp B/P (MAP) Pulse Ox O2 Delivery O2 Flow Rate FiO2 01/03/17 08:00 98.0 110 18 126/76 (93) 100 01/03/17 04:56 98.3 111 18 100/68 (79) 97 01/03/17 00:00 97.3 118 18 106/76 (86) 99 01/02/17 22:45 98 26 105/70 (82) 100 Room Air 01/02/17 22:30 98 26 110/80 (90) 100 Room Air 01/02/17 22:15 98.2 99 22 117/78 (91) 100 Room Air 01/02/17 16:21 98.2 94 18 101/80 (87) 98 01/02/17 12:16 97.7 106 19 119/79 (92) 97 I/O 01/02/17 01/02/17 01/02/17 01/03/17 01/03/17 01/03/17 07:00 15:00 23:00 07:00 15:00 23:00 Intake Total 1120 ml Output Total 300 ml 1110 ml 2113 ml Balance -300 ml 10 ml -2113 ml Other 1120 ml Output Urine Total 300 ml 1100 ml 2100 ml Drainage Total 13 ml Estimated Blood Loss 10 ml # Voids 2 0 # Bowel Movements 0 Result Diagram: 01/03/17 0648 01/03/17 0648 Imaging Last Impressions Thoracic Spine MRI 12/27/16 0000 Signed Impressions: Service Date/Time: Tuesday, December 27, 2016 12:44 - CONCLUSION: 1. When compared to the prior study there has been progression in the discitis/osteomyelitis with worsening osteomyelitis extending from T4-T7 and development of a new epidural abscess that extends into the paraspinal soft tissues posteriorly. The anterior paraspinal fluid collection is smaller from the prior study. Gopal Cates Jr., MD Chest CT 12/21/16 0000 Signed Impressions: Service Date/Time: December 11:52 - CONCLUSION: 1. Abnormal paraspinal fluid and soft tissue containing gas highly suspicious for a paraspinal abscess. This finding is similar distribution but decreased from the prior exam. It extends from approximately T3-T8. 2. There is an open wound on the midline back with contiguous subcutaneous air collection which extends to the area of prior laminectomy. There is a small amount of air within the spinal canal, likely in the epidural space. 3. Focal airspace consolidation in the right lower lobe with partial cavitation measuring approximately 2.3 x 1.1 cm. There was an area of consolidation on the prior examination and in identical location. However, it has decreased in size from the prior study. 4. Stable sclerosis and partial destruction of what is thought to be the T7 vertebral body. 5. Small bilateral pleural effusions. Roshan Galvez MD Abscess Drainage CT 12/21/16 0000 Signed Impressions: Service Date/Time: December 12:17 - CONCLUSION: Uncomplicated CT guided aspiration of the paraspinal fluid collection. I was only able to aspirate approximately 1-2 cc of reddish foul-smelling fluid. The sample was saved and sent to the lab for microbiological analysis. Roshan Galvez MD Chest X-Ray 12/20/16 0000 Signed Impressions: Service Date/Time: Tuesday, December 20, 2016 07:45 - CONCLUSION: Underinflation with atelectasis at the lung bases. Otherwise, no acute finding is appreciated. Roshan Galvez MD Objective Remarks GENERAL: 41-year-old male, very skinny, resting in bed in no acute distress. Bitemporal waisting. SKIN: Warm and dry. Multiple tattoos bilateral upper extremities CARDIOVASCULAR: Tachycardia, RR. S1, S2 no S4. Do not appreciate murmur RESPIRATORY: Clear to auscultation. Breath sounds equal bilaterally. GASTROINTESTINAL: Abdomen soft, non-tender, nondistended. Hepatic and splenic margins not palpable. MUSCULOSKELETAL: Extremities without significant peripheral edema. S/p surgery drain in place, dressing c/d/i around T2/3 thoracic spine NEUROLOGICAL: Awake and alert. No obvious cranial nerve deficits. Motor grossly within normal limits. Five out of 5 muscle strength in the arms and legs. Normal speech. Procedures Thoracic paraspinous abscess s/p Thoracic wound debridement, evacuation paraspinous abscess by Dr Pickard neurosurgery on 01/02/17 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 - Osteomyelitis of vertebra, site unspecified (2) Gastroesophageal reflux disease ICD Code: K21.9 - Gastro-esophageal reflux disease without esophagitis (3) Acute kidney injury ICD Code: N17.9 - Acute kidney failure, unspecified (4) Thrombocytosis ICD Code: D47.3 - Essential (hemorrhagic) thrombocythemia (5) Microcytic anemia ICD Code: D50.9 - Iron deficiency anemia, unspecified (6) Leukocytosis ICD Code: D72.829 - Elevated white blood cell count, unspecified (7) Hyperkalemia ICD Code: E87.5 - Hyperkalemia (8) Discitis ICD Code: M46.40 - Discitis Status: Acute (9) Renal failure ICD Code: N19 - Renal failure Status: Acute (10) Intravenous drug abuse in remission ICD Code: F19.10 - Intravenous drug abuse in remission Status: Acute (11) HTN (hypertension) ICD Code: I10 - Essential (primary) hypertension Status: Acute (12) Osteomyelitis ICD Code: M86.9 - Osteomyelitis Status: Acute (13) Tobacco abuse ICD Code: Z72.0 - Tobacco abuse Status: Acute (14) Pulmonary abscess ICD Code: J85.2 - Abscess of lung without pneumonia Status: Acute Assessment and Plan Neuro/Psych: T5/6 through T7/8 discitis Thoracic paraspinous abscess Pathologic fractures T5, 6 and 7. 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 On percocet per pain sclae 1-5 , dilaudid for pain 6-10 and add dilaudid 0.5 for breakthrough pain . Consult palliative care for bass management. Previously OxyContin 40 mg twice a day with Dilaudid 4 mg every 4 hours when necessary breakthrough pain Currently on amitriptyline 25 mg a night for depression Thiamine, multivitamin and folate daily Neurosurgery/Dr. Pickard consulted, ff MRI repeat 12/27/16 reviewed findings discussed with Dr Cruz ID specialist. patient with progression of osteomyelitis /discitis. Neurosurgery reevaluated for surgical intervention. S/p surgical intervention by Dr Urbina 01/02/17 Thoracic paraspinous abscess s/p Thoracic wound debridement, evacuation paraspinous abscess by Dr Pickard neurosurgery on 01/02/17 01/03/17 Give additional 0.5 mg dilaudid as patient with pain and tachycardic CV: Sinus tachycardia 2-D echocardiogram 05/29 revealed EF 55-60%. No regional wall motion abnormality. Currently normal saline at 84 cc an hour. Resp: Tobaccoism Nasal cannula to maintain saturations greater than or equal to 92% Incentive spirometry while awake As needed albuterol aerosols Chest x-ray 12/20 revealed no acute findings GI: Regular diet Pantoprazole 40 mg daily for GI prophylaxis Docusate sodium/senna 1 tablet twice daily for bowel regimen Follow-up liver function tests : History of suprapubic catheter Currently no acute issues Endo: Sliding-scale insulin if indicated to maintain euglycemia Renal: Acute kidney injury - resolved Monitor urine output Accurate I's and O's Currently on normal saline at 84 cc an hour Repeat labs in a.m. Heme: Microcytic anemia Check iron studies/ferritin. Patient with iron deficiency anemia. Start ferrous sulfate 325 mg by mouth twice a day. Peripheral smear Hemoccult stool Follow-up CBC in a.m. Severe protein calorie malnutrition, low BMI of 17.6, muscle waiting. 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 Consult [employer]. ID: Paravertebral abscess With MSSA and Ancef is started 12/26/16 per ID recommendations and vancomycin/ cefepime was DCd 12/20 - Blood cultures no growth. Wound culture with staph aureus. Infectious disease consultation appreciated with Dr. Cruz. Awaiting follow- up Mycobacterium abscesses cultures. S/P paravertebral abscess aspiration by IR on 12/22/16 with 2 cc of foul smelling red fluid. Cultures staph Aureus pansensitive. ID specialist also ff. Spoke with Dr Mike ID specialist. MRI back 12/27/16 per ID recommendations Back wound with large amount of pus, abx changed to Ancef per ID. Anticipate long course of IV abx PICC per ID MSK: PT evaluate and treat Severe Protein calorie malnutrition BMI of 78, low albumin of 1.7. He can repeat, muscle wasting. Bitemporal wasting. 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 Access - Utilize peripheral IV. Central line if indicated Prophylaxis - GI - pantoprazole - DVT - SCD/holding pharmacological prophylaxis in light of possible surgical intervention Consult PT and OT Discussed with the patient, nurse, ID specialist Dr Cruz and neurosurgery DC plan: difficult DC , discussed with Tam[facility] case management. Plan to DC to SNF. CM ff for DC plan as well. Patient will need wound care, PT, IV antibiotic Ancef per ID recommendations, and pain management at DC. To follow up as Op with PCP and consultants. Needs clearance by neurosurgery and ID to arrange abx at DC also. Patient however with MRI showing worsening discitis/osteomyelitis , reevaluation by neurosurgery for surgical intervention. Not cleared for DC yet. S/P surgical intervention per neurosurgery 01/02/17 Problem Qualifiers (1) Gastroesophageal reflux disease: Qualified Codes: K21.9 - Gastro-esophageal reflux disease without esophagitis (2) Leukocytosis: Qualified Codes: D72.829 - Elevated white blood cell count, unspecified (3) Discitis: Qualified Codes: M46.44 - Discitis, unspecified, thoracic region (4) Renal failure: Qualified Codes: N17.9 - Acute kidney failure, unspecified; N18.9 - Chronic kidney disease, unspecified (5) HTN (hypertension): Qualified Codes: I10 - Essential (primary) hypertension (6) Osteomyelitis: Qualified Codes: M86.8X0 - Other osteomyelitis, multiple sites (7) Pulmonary abscess: Qualified Codes: J85.2 - Abscess of lung without pneumonia Ariadna Sotomayor MD Jan 03, 2017 09:18
[2017-01-03] MEDS: FERROUS SULFATE 325 MG (65 MG ELEMENTAL IRON) TAB PO SCH ×2 (11:29→17:02)
--- NOTE | 2017-01-03 11:35 | HHI.NSPN ---
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 He was most recently seen in May 2016 when he presented with a thoracic osteomyelitis-discitis with paraspinous abscess and underwent a T4-5 laminectomy, evacuation abscess. Cultures grew mycobacterium abscessus, for which he was placed on IV antibiotic treatment initially . He returned in June 2016 with persistent/recurrent infection, having been noncompliant with the IV treatment. He was placed on oral medication including Biaxine, which he was also noncompliant with. He states that he was feeling relatively well until a week ago when he developed right hip pain. He has had a previous ORIF of the right hip but states that it usually does not bother him. 2 days ago he noted a cutaneous infection in the mid thoracic region and went to [facility] emergency room for evaluation. He states that he was released and told to come to [place] for further treatment. He has noted drainage from the infection site in the past 1-2 days. He denies any fevers or chills. He complains of a productive cough or couple of weeks. No definite bowel or bladder dysfunction. He states that he has been able ambulate well without any definite numbness in the extremities except for the right hip. 12/26: The patient this morning is awake and alert when seen. He complains of back and right hip pain. He denies any numbness or tingling to the extremities. 12/29: When seen this morning the patient is awake and alert. He continues to have pain to the back and right hip. He went for an MRI of the thoracic spine on . 01/02: This morning the patient is awake and alert. He complains of pain to the neck and back with the worse being the upper back at the wound. He also has pain to the right lateral hip. 01/03: The patient is awake and alert when seen. He complains of pain to the back and states he would like for Dr Pickard to increase his pain medication. He still has pain to the right hip. The patient did go for a wound debridement and evacuation of a thoracic epidural abscess yesterday. (Darrion Garcia) System Review Comments MUSCULOSKELETAL: Back pain. Right hip pain. (Darrion Garcia) Exam Results 01/01/17 01/01/17 01/02/17 01/02/17 01/03/17 01/03/17 06:00 18:00 06:00 18:00 06:00 18:00 Intake Total 5500 ml 720 ml 50 ml 1120 ml Output Total 4000 ml 700 ml 300 ml 1100 ml 1710 ml 413 ml Balance 1500 ml 20 ml -250 ml -1100 ml -590 ml -413 ml Intake Oral 5500 ml 720 ml IV Total 50 ml Other 1120 ml Output Urine Total 4000 ml 700 ml 300 ml 1100 ml 1700 ml 400 ml Drainage Total 13 ml Estimated Blood Loss 10 ml # Voids 2 0 # Bowel Movements 0 0 0 Vital Signs Date Time Temp Pulse Resp B/P (MAP) Pulse Ox O2 Delivery O2 Flow Rate FiO2 01/03/17 08:00 98.0 110 18 126/76 (93) 100 01/03/17 04:56 98.3 111 18 100/68 (79) 97 01/03/17 00:00 97.3 118 18 106/76 (86) 99 01/02/17 22:45 98 26 105/70 (82) 100 Room Air 01/02/17 22:30 98 26 110/80 (90) 100 Room Air 01/02/17 22:15 98.2 99 22 117/78 (91) 100 Room Air 01/02/17 16:21 98.2 94 18 101/80 (87) 98 01/02/17 12:16 97.7 106 19 119/79 (92) 97 01/02/17 07:55 98.0 99 18 91/58 (69) 97 01/02/17 00:00 98.2 110 20 116/64 (81) 92 01/01/17 17:05 18 01/01/17 16:49 97.9 93 20 126/88 (101) 98 01/01/17 15:30 18 01/01/17 12:13 97.9 100 20 95/55 (68) 96 01/01/17 10:43 18 01/01/17 08:33 98.2 102 20 102/71 (81) 98 01/01/17 00:20 98.3 115 17 99/75 (83) 97 12/31/16 20:45 98.2 106 16 114/84 (94) 97 12/31/16 16:00 98.3 96 18 96/53 (67) 98 12/31/16 12:00 98.8 106 18 97/57 (70) 96 (Darrion Garcia) Physical Examination GENERAL: Thin male who appears mildy uncomfortable, affect flat, no distress noted. SKIN: Intact dressings to thoracic surgical incision & JANA drain insertion site, no erythema or streaking. NECK: Midline cervical spine minimally TTP, no JVD, trachea midline. MUSCULOSKELETAL: JENKINS w/o difficulty. Right hip TTP posteriorly & laterally. Upper thoracic spine TTP and remainder of thoracolumbar spine minimally TTP. NEUROLOGICAL: AAOx3. Speech clear & appropriate. Follows simple commands w/o difficulty. Sensation intact to light touch to all extremities. Motor strength is 5/5 to all major flexion & extension muscle groups except for right deltoid 3/5 which appears to be related to pain at the surgical incision. (Darrion Garcia) Lab, Micro, Other Results Laboratory Tests Test 01/01/17 17:00 01/02/17 05:50 01/03/17 06:48 White Blood Count 4.5 TH/MM3 4.0 TH/MM3 4.4 TH/MM3 Red Blood Count 4.30 MIL/MM3 4.27 MIL/MM3 4.12 MIL/MM3 Hemoglobin 10.0 GM/DL 9.9 GM/DL 10.0 GM/DL Hematocrit 30.4 % 30.4 % 29.3 % Mean Corpuscular Volume 70.7 FL 71.1 FL 71.1 FL Mean Corpuscular Hemoglobin 23.2 PG 23.2 PG 24.3 PG Mean Corpuscular Hemoglobin Concent 32.9 % 32.6 % 34.1 % Red Cell Distribution Width 20.7 % 20.8 % 20.9 % Platelet Count 413 TH/MM3 389 TH/MM3 373 TH/MM3 Mean Platelet Volume 7.9 FL 7.5 FL 8.1 FL Neutrophils (%) (Auto) 50.7 % 50.2 % 71.8 % Lymphocytes (%) (Auto) 33.4 % 31.9 % 21.9 % Monocytes (%) (Auto) 9.8 % 10.4 % 5.4 % Eosinophils (%) (Auto) 5.5 % 6.4 % 0.2 % Basophils (%) (Auto) 0.6 % 1.1 % 0.7 % Neutrophils # (Auto) 2.3 TH/MM3 2.0 TH/MM3 3.2 TH/MM3 Lymphocytes # (Auto) 1.5 TH/MM3 1.3 TH/MM3 1.0 TH/MM3 Monocytes # (Auto) 0.4 TH/MM3 0.4 TH/MM3 0.2 TH/MM3 Eosinophils # (Auto) 0.2 TH/MM3 0.3 TH/MM3 0.0 TH/MM3 Basophils # (Auto) 0.0 TH/MM3 0.0 TH/MM3 0.0 TH/MM3 CBC Comment DIFF FINAL DIFF FINAL DIFF FINAL Differential Comment Prothrombin Time 10.9 SEC 10.7 SEC Prothromb Time International Ratio 1.0 RATIO 1.0 RATIO Activated Partial Thromboplast Time 27.8 SEC 27.5 SEC Blood Urea Nitrogen 10 MG/DL 12 MG/DL 14 MG/DL Creatinine 0.61 MG/DL 0.74 MG/DL 0.76 MG/DL Random Glucose 92 MG/DL 92 MG/DL 108 MG/DL Calcium Level 8.5 MG/DL 8.8 MG/DL 8.5 MG/DL Sodium Level 136 MEQ/L 134 MEQ/L 135 MEQ/L Potassium Level 4.0 MEQ/L 4.2 MEQ/L 4.8 MEQ/L Chloride Level 98 MEQ/L 97 MEQ/L 100 MEQ/L Carbon Dioxide Level 29.0 MEQ/L 30.4 MEQ/L 30.7 MEQ/L Anion Gap 9 MEQ/L 7 MEQ/L 4 MEQ/L Estimat Glomerular Filtration Rate 144 ML/MIN 115 ML/MIN 112 ML/MIN Magnesium Level 1.8 MG/DL (Darrion Garcia) Medical Decision Making Impression and Plan Impression: 1. Persistent T4-5-6 level discitis-osteomyelitis, paraspinous abscess with new area of subcutaneous abscess and adjacent wound dehiscence. MRI thoracic & lumbar spine from [facility] with chronic T5-6- 7 fractures with T4-5-6 discitis and paraspinous inflammation-abscess with extension towards the right lung. Findings are relatively stable compared to previous imaging studies from May and June 2016, however there is now a subcutaneous fluid collection present at the T4-6 level. MRI thoracic spine demonstrated worsening of the patient's osteomyelitis from T4-T7 and development of an epidural abscess extending into the paraspinal soft tissues when compared to the patient's MRI. The anterior paraspinal fluid collection is smaller. Patient complains of pain to the back post-operatively but is neurologically intact. Reviewed labs for today. Hgb stable. Platelets WNL. No leukocytosis. Mild hyponatremia. POD #1 () s/p: Thoracic wound debridement, evacuation paraspinous abscess Postoperative Diagnosis: (1) Paraspinal abscess Thoracic paraspinous abscess Plan: Plan of care discussed with patient. Antibiotics per Infectious Disease. Mobilise patient, no brace required when OOB. No twisting, reaching, bending, pushing, pulling or other strenuous activity. Monitor JANA drain output. PT/OT eval & tx. (Darrion Garcia) Attending Statement The exam, history, and the medical decision-making described in the above note were completed with the assistance of the mid-level provider. I reviewed and agree with the findings presented. I attest that I had a [id number] encounter with the patient on the same day, and personally performed and documented my assessment and findings in the medical record. Stable neurologic exam following wound debridement. Dressing dry and intact. Minimal drain output We will discontinue drain Mobilize out of bed (Jeffry Pickard MD) Darrion Garcia Jan 03, 2017 11:35 Jeffry Pickard MD Jan 03, 2017 22:39
[2017-01-03 12:00] VITALS: BP 124/76; PULSE 115; RESP 18; TEMP 98.2; O2SAT 96
[2017-01-03 16:00] VITALS: BP 107/71; PULSE 110; RESP 18; TEMP 97.8; O2SAT 97
[2017-01-03] MEDS ORDERED: HYDROmorphone HCL PF 0.5 MG/0.5 ML SYRINGE SQ ONE (16:15)
[2017-01-03] MEDS: AMITRIPTYLINE HCL 25 MG TAB PO SCH (20:40)
[2017-01-03 21:00] VITALS: BP 102/73; PULSE 100; RESP 18; TEMP 98.1; O2SAT 95
[2017-01-04 00:30] VITALS: BP 115/74; PULSE 103; RESP 18; TEMP 97.7; O2SAT 96
[2017-01-04] MEDS: HYDROmorphone HCL PF 1 MG/ML VIAL IV PUSH PRN ×6 (00:42→21:07)
[2017-01-04] MEDS: CHLORHEXIDINE GLUCONATE 2 % 1 PACK (2 CLOTHS) TOP SCH (02:40)
[2017-01-04] MEDS: HYDROmorphone HCL PF 0.5 MG/0.5 ML SYRINGE IV PUSH PRN ×5 (02:44→23:19)
[2017-01-04] MEDS: ceFAZolin 2 GM PREMIX 50 ML IV SCH ×3 (02:44→18:30)
[2017-01-04] MEDS: METHOCARBAMOL 500 MG TAB PO SCH ×3 (05:09→21:06)
[2017-01-04 05:20] VITALS: BP 123/72; PULSE 100; RESP 18; TEMP 97.8; O2SAT 97
[2017-01-04 08:00] VITALS: BP 80/50; PULSE 80; RESP 20; TEMP 97.4; O2SAT 97
[2017-01-04] MEDS: INSULIN NovoLIN REGULAR SUPPLEMENTAL SCALE SQ SCH ×4 (08:53→21:00)
[2017-01-04] MEDS: MULTIVITAMIN TAB PO SCH (09:16)
[2017-01-04] MEDS: oxyCODONE HCL 40 MG CONTROLLED RELEASE TAB PO SCH ×2 (09:16→21:06)
[2017-01-04] MEDS: DOCUSATE SODIUM 50 MG/SENNA 8.6 MG TAB PO SCH ×2 (09:16→21:06)
[2017-01-04] MEDS: FOLIC ACID 1 MG TAB PO SCH (09:16)
[2017-01-04] MEDS: THIAMINE HCL 100 MG TAB PO SCH (09:16)
[2017-01-04] MEDS: PANTOPRAZOLE SOD 40 MG DELAYED RELEASE TAB PO SCH (09:16)
[2017-01-04] MEDS: SODIUM CHLORIDE 0.9% FLUSH 5 ML FLUSH IVF SCH ×2 (09:17→21:00)
--- NOTE | 2017-01-04 09:40 | HHI.PR ---
Subjective Remarks Complaints of back pain. He is tachycardic at this time. Will give one dose dilaudid IV 0.5 one time . Has back pain when he takes a deep breath but no chest pain. no sob. No cough. Satting well on room air. No fever or chills. Eating fairly well. Objective Vitals Vital Signs Date Time Temp Pulse Resp B/P (MAP) Pulse Ox O2 Delivery O2 Flow Rate FiO2 01/04/17 08:00 97.4 80 20 80/50 (60) 97 01/04/17 05:20 97.8 100 18 123/72 (89) 97 01/04/17 00:30 97.7 103 18 115/74 (88) 96 01/03/17 21:00 98.1 100 18 102/73 (83) 95 01/03/17 16:00 97.8 110 18 107/71 (83) 97 01/03/17 12:00 98.2 115 18 124/76 (92) 96 I/O 01/03/17 01/03/17 01/03/17 01/04/17 01/04/17 01/04/17 06:59 14:59 22:59 06:59 14:59 22:59 Output Total 2113 ml 710 ml 10 ml Balance -2113 ml -710 ml -10 ml Output Urine Total 2100 ml 700 ml Drainage Total 13 ml 10 ml 10 ml # Voids 5 4 # Bowel Movements 0 Result Diagram: 01/03/17 0648 01/03/17 0648 Imaging Last Impressions Thoracic Spine MRI 12/27/16 0000 Signed Impressions: Service Date/Time: Tuesday, December 27, 2016 12:44 - CONCLUSION: 1. When compared to the prior study there has been progression in the discitis/osteomyelitis with worsening osteomyelitis extending from T4-T7 and development of a new epidural abscess that extends into the paraspinal soft tissues posteriorly. The anterior paraspinal fluid collection is smaller from the prior study. Gopal Cates Jr., MD Chest CT 12/21/16 0000 Signed Impressions: Service Date/Time: December 11:52 - CONCLUSION: 1. Abnormal paraspinal fluid and soft tissue containing gas highly suspicious for a paraspinal abscess. This finding is similar distribution but decreased from the prior exam. It extends from approximately T3-T8. 2. There is an open wound on the midline back with contiguous subcutaneous air collection which extends to the area of prior laminectomy. There is a small amount of air within the spinal canal, likely in the epidural space. 3. Focal airspace consolidation in the right lower lobe with partial cavitation measuring approximately 2.3 x 1.1 cm. There was an area of consolidation on the prior examination and in identical location. However, it has decreased in size from the prior study. 4. Stable sclerosis and partial destruction of what is thought to be the T7 vertebral body. 5. Small bilateral pleural effusions. Roshan Galvez MD Abscess Drainage CT 12/21/16 0000 Signed Impressions: Service Date/Time: December 12:17 - CONCLUSION: Uncomplicated CT guided aspiration of the paraspinal fluid collection. I was only able to aspirate approximately 1-2 cc of reddish foul-smelling fluid. The sample was saved and sent to the lab for microbiological analysis. Roshan Galvez MD Chest X-Ray 12/20/16 0000 Signed Impressions: Service Date/Time: Tuesday, December 20, 2016 07:45 - CONCLUSION: Underinflation with atelectasis at the lung bases. Otherwise, no acute finding is appreciated. Roshan Galvez MD Objective Remarks GENERAL: 41-year-old male, very skinny, resting in bed in no acute distress. Bitemporal waisting. SKIN: Warm and dry. Multiple tattoos bilateral upper extremities CARDIOVASCULAR: Tachycardia, RR. S1, S2 no S4. Do not appreciate murmur RESPIRATORY: Clear to auscultation. Breath sounds equal bilaterally. GASTROINTESTINAL: Abdomen soft, non-tender, nondistended. Hepatic and splenic margins not palpable. MUSCULOSKELETAL: Extremities without significant peripheral edema. S/p surgery drain in place, dressing c/d/i around T2/3 thoracic spine NEUROLOGICAL: Awake and alert. No obvious cranial nerve deficits. Motor grossly within normal limits. Five out of 5 muscle strength in the arms and legs. Normal speech. Procedures Thoracic paraspinous abscess s/p Thoracic wound debridement, evacuation paraspinous abscess by Dr Pickard neurosurgery on 01/02/17 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 - Osteomyelitis of vertebra, site unspecified (2) Gastroesophageal reflux disease ICD Code: K21.9 - Gastro-esophageal reflux disease without esophagitis (3) Acute kidney injury ICD Code: N17.9 - Acute kidney failure, unspecified (4) Thrombocytosis ICD Code: D47.3 - Essential (hemorrhagic) thrombocythemia (5) Microcytic anemia ICD Code: D50.9 - Iron deficiency anemia, unspecified (6) Leukocytosis ICD Code: D72.829 - Elevated white blood cell count, unspecified (7) Hyperkalemia ICD Code: E87.5 - Hyperkalemia (8) Discitis ICD Code: M46.40 - Discitis Status: Acute (9) Renal failure ICD Code: N19 - Renal failure Status: Acute (10) Intravenous drug abuse in remission ICD Code: F19.10 - Intravenous drug abuse in remission Status: Acute (11) HTN (hypertension) ICD Code: I10 - Essential (primary) hypertension Status: Acute (12) Osteomyelitis ICD Code: M86.9 - Osteomyelitis Status: Acute (13) Tobacco abuse ICD Code: Z72.0 - Tobacco abuse Status: Acute (14) Pulmonary abscess ICD Code: J85.2 - Abscess of lung without pneumonia Status: Acute Assessment and Plan Neuro/Psych: T5/6 through T7/8 discitis Thoracic paraspinous abscess Pathologic fractures T5, 6 and 7. 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 On percocet per pain sclae 1-5 , dilaudid for pain 6-10 and add dilaudid 0.5 for breakthrough pain . Consult palliative care for bass management. Previously OxyContin 40 mg twice a day with Dilaudid 4 mg every 4 hours when necessary breakthrough pain Currently on amitriptyline 25 mg a night for depression Thiamine, multivitamin and folate daily Neurosurgery/Dr. Pickard consulted, ff MRI repeat 12/27/16 reviewed findings discussed with Dr Cruz ID specialist. patient with progression of osteomyelitis /discitis. Neurosurgery reevaluated for surgical intervention. S/p surgical intervention by Dr Urbina 01/02/17 Thoracic paraspinous abscess s/p Thoracic wound debridement, evacuation paraspinous abscess by Dr Pickard neurosurgery on 01/02/17 01/03/17 Give additional 0.5 mg dilaudid as patient with pain and tachycardic CV: Sinus tachycardia 2-D echocardiogram 05/29 revealed EF 55-60%. No regional wall motion abnormality. Currently normal saline at 84 cc an hour. Resp: Tobaccoism Nasal cannula to maintain saturations greater than or equal to 92% Incentive spirometry while awake As needed albuterol aerosols Chest x-ray 12/20 revealed no acute findings GI: Regular diet Pantoprazole 40 mg daily for GI prophylaxis Docusate sodium/senna 1 tablet twice daily for bowel regimen Follow-up liver function tests : History of suprapubic catheter Currently no acute issues Endo: Sliding-scale insulin if indicated to maintain euglycemia Renal: Acute kidney injury - resolved Monitor urine output Accurate I's and O's Currently on normal saline at 84 cc an hour Repeat labs in a.m. Heme: Microcytic anemia Check iron studies/ferritin. Patient with iron deficiency anemia. Start ferrous sulfate 325 mg by mouth twice a day. Peripheral smear Hemoccult stool Follow-up CBC in a.m. Severe protein calorie malnutrition, low BMI of 17.6, muscle waiting. 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 Consult upper caser. ID: Paravertebral abscess With MSSA and Ancef is started 12/26/16 per ID recommendations and vancomycin/ cefepime was DCd 12/20 - Blood cultures no growth. Wound culture with staph aureus. Infectious disease consultation appreciated with Dr. Cruz. Awaiting follow- up Mycobacterium abscesses cultures. S/P paravertebral abscess aspiration by IR on 12/22/16 with 2 cc of foul smelling red fluid. Cultures staph Aureus pansensitive. ID specialist also ff. Spoke with Dr Mike ID specialist. MRI back 12/27/16 per ID recommendations Back wound with large amount of pus, abx changed to Ancef per ID. Anticipate long course of IV abx PICC per ID MSK: PT evaluate and treat Severe Protein calorie malnutrition BMI of 78, low albumin of 1.7. He can repeat, muscle wasting. Bitemporal wasting. 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 Access - Utilize peripheral IV. Central line if indicated Prophylaxis - GI - pantoprazole - DVT - SCD/holding pharmacological prophylaxis in light of possible surgical intervention Consult PT and OT Discussed with the patient, nurse, ID specialist Dr Cruz and neurosurgery DC plan: difficult DC , discussed with [facility] case management. Plan to DC to SNF. CM ff for DC plan as well. Patient will need wound care, PT, IV antibiotic Ancef per ID recommendations, and pain management at DC. To follow up as Op with PCP and consultants. Needs clearance by neurosurgery and ID to arrange abx at DC also. Patient however with MRI showing worsening discitis/osteomyelitis , reevaluation by neurosurgery for surgical intervention. Not cleared for DC yet. S/P surgical intervention per neurosurgery 01/02/17. Problem Qualifiers (1) Gastroesophageal reflux disease: Qualified Codes: K21.9 - Gastro-esophageal reflux disease without esophagitis (2) Leukocytosis: Qualified Codes: D72.829 - Elevated white blood cell count, unspecified (3) Discitis: Qualified Codes: M46.44 - Discitis, unspecified, thoracic region (4) Renal failure: Qualified Codes: N17.9 - Acute kidney failure, unspecified; N18.9 - Chronic kidney disease, unspecified (5) HTN (hypertension): Qualified Codes: I10 - Essential (primary) hypertension (6) Osteomyelitis: Qualified Codes: M86.8X0 - Other osteomyelitis, multiple sites (7) Pulmonary abscess: Qualified Codes: J85.2 - Abscess of lung without pneumonia Ariadna Sotomayor MD Jan 04, 2017 09:39
[2017-01-04] MEDS: FERROUS SULFATE 325 MG (65 MG ELEMENTAL IRON) TAB PO SCH ×2 (10:56→16:56)
[2017-01-04 12:00] VITALS: BP 85/49; PULSE 95; RESP 20; TEMP 98.4; O2SAT 96
[2017-01-04] MEDS ORDERED: HYDROmorphone HCL PF 1 MG/ML VIAL IV PUSH ONE (13:15)
[2017-01-04 16:00] VITALS: BP 115/74; PULSE 99; RESP 20; TEMP 98.4; O2SAT 98
[2017-01-04 21:00] VITALS: BP 99/68; PULSE 104; RESP 18; TEMP 97.9; O2SAT 98
[2017-01-04] MEDS: AMITRIPTYLINE HCL 25 MG TAB PO SCH (21:06)
[2017-01-05 00:43] VITALS: BP 114/71; PULSE 108; RESP 18; TEMP 98.6; O2SAT 96
[2017-01-05] MEDS: oxyCODONE/ACETAMINOPHEN 10 MG/325 MG TAB PO PRN ×2 (01:30→22:55)
[2017-01-05] MEDS: HYDROmorphone HCL PF 1 MG/ML VIAL IV PUSH PRN ×5 (01:32→21:56)
[2017-01-05] MEDS: ceFAZolin 2 GM PREMIX 50 ML IV SCH ×3 (03:00→18:03)
[2017-01-05] MEDS: HYDROmorphone HCL PF 0.5 MG/0.5 ML SYRINGE IV PUSH PRN ×5 (03:11→19:51)
[2017-01-05] MEDS: CHLORHEXIDINE GLUCONATE 2 % 1 PACK (2 CLOTHS) TOP SCH (03:12)
[2017-01-05] MEDS: METHOCARBAMOL 500 MG TAB PO SCH ×2 (05:05→21:55)
[2017-01-05 05:39] VITALS: BP 121/65; PULSE 97; RESP 18; TEMP 98.3; O2SAT 99
[2017-01-05 08:00] VITALS: BP 109/79; PULSE 98; RESP 18; TEMP 97.5; O2SAT 99
[2017-01-05] MEDS: INSULIN NovoLIN REGULAR SUPPLEMENTAL SCALE SQ SCH ×3 (08:00→21:00)
[2017-01-05 08:24] LABS: AUTOMATED NEUTROPHIL # 1.9 TH/MM3 (1.8-7.7); BASOPHIL % 0.7 % (0.0-2.0); EOSINOPHIL # 0.3 TH/MM3 (0-0.4); EOSINOPHIL % 6.8 % (0.0-4.0); HEMATOCRIT 30.3 % (39.0-51.0); HEMO FLAGS DIFF FINAL; LYMPH % 36.9 % (9.0-44.0); LYMPHOCYTE # 1.6 TH/MM3 (1.0-4.8); MEAN CELL VOLUME 71.8 FL (80.0-100.0); MEAN CORPUSCULAR HEMOGLOBIN 23.7 PG (27.0-34.0); MONO % 10.9 % (0.0-8.0); NEUT % 44.7 % (16.0-70.0); PLATELET COUNT 373 TH/MM3 (150-450); RED BLOOD COUNT 4.22 MIL/MM3 (4.50-5.90); RED CELL DISTRIBUTION WIDTH 22.1 % (11.6-17.2); WHITE BLOOD COUNT 4.3 TH/MM3 (4.0-11.0)
[2017-01-05 08:44] LABS: BICARBONATE 29.9 MEQ/L (21.0-32.0); POTASSIUM 4.1 MEQ/L (3.5-5.1)
[2017-01-05] MEDS: MULTIVITAMIN TAB PO SCH (09:27)
[2017-01-05] MEDS: PANTOPRAZOLE SOD 40 MG DELAYED RELEASE TAB PO SCH (09:27)
[2017-01-05] MEDS: DOCUSATE SODIUM 50 MG/SENNA 8.6 MG TAB PO SCH ×2 (09:27→21:55)
[2017-01-05] MEDS: FOLIC ACID 1 MG TAB PO SCH (09:27)
[2017-01-05] MEDS: THIAMINE HCL 100 MG TAB PO SCH (09:27)
[2017-01-05] MEDS: oxyCODONE HCL 40 MG CONTROLLED RELEASE TAB PO SCH ×2 (09:28→22:00)
[2017-01-05] MEDS: FERROUS SULFATE 325 MG (65 MG ELEMENTAL IRON) TAB PO SCH ×2 (11:00→17:00)
--- NOTE | 2017-01-05 11:42 | HHI.PR ---
Subjective Remarks Patient in bed. Drain is removed by neurosurgery. Says pain is fairly controlled. No fever or chills. Eating better and gained some weight. No sob, satting well on room air. Objective Vitals Vital Signs Date Time Temp Pulse Resp B/P (MAP) Pulse Ox O2 Delivery O2 Flow Rate FiO2 01/05/17 08:00 97.5 98 18 109/79 (89) 99 01/05/17 05:39 98.3 97 18 121/65 (83) 99 01/05/17 00:43 98.6 108 18 114/71 (85) 96 01/04/17 21:00 97.9 104 18 99/68 (78) 98 01/04/17 16:00 98.4 99 20 115/74 (88) 98 01/04/17 12:00 98.4 95 20 85/49 (61) 96 I/O 01/04/17 01/04/17 01/04/17 01/05/17 01/05/17 01/05/17 07:00 15:00 23:00 07:00 15:00 23:00 Intake Total 1010 ml Output Total 10 ml 1100 ml 1800 ml Balance -10 ml -90 ml -1800 ml Intake Oral 960 ml IV Total 50 ml Output Urine Total 1100 ml 1800 ml Drainage Total 10 ml # Voids 4 # Bowel Movements 2 Result Diagram: 01/05/17 0735 01/05/17 0735 Imaging Last Impressions Thoracic Spine MRI 12/27/16 0000 Signed Impressions: Service Date/Time: Tuesday, December 27, 2016 12:44 - CONCLUSION: 1. When compared to the prior study there has been progression in the discitis/osteomyelitis with worsening osteomyelitis extending from T4-T7 and development of a new epidural abscess that extends into the paraspinal soft tissues posteriorly. The anterior paraspinal fluid collection is smaller from the prior study. Gopal Cates Jr., MD Chest CT 12/21/16 0000 Signed Impressions: Service Date/Time: December 11:52 - CONCLUSION: 1. Abnormal paraspinal fluid and soft tissue containing gas highly suspicious for a paraspinal abscess. This finding is similar distribution but decreased from the prior exam. It extends from approximately T3-T8. 2. There is an open wound on the midline back with contiguous subcutaneous air collection which extends to the area of prior laminectomy. There is a small amount of air within the spinal canal, likely in the epidural space. 3. Focal airspace consolidation in the right lower lobe with partial cavitation measuring approximately 2.3 x 1.1 cm. There was an area of consolidation on the prior examination and in identical location. However, it has decreased in size from the prior study. 4. Stable sclerosis and partial destruction of what is thought to be the T7 vertebral body. 5. Small bilateral pleural effusions. Roshan Galvez MD Abscess Drainage CT 12/21/16 0000 Signed Impressions: Service Date/Time: December 12:17 - CONCLUSION: Uncomplicated CT guided aspiration of the paraspinal fluid collection. I was only able to aspirate approximately 1-2 cc of reddish foul-smelling fluid. The sample was saved and sent to the lab for microbiological analysis. Roshan Galvez MD Chest X-Ray 12/20/16 0000 Signed Impressions: Service Date/Time: Tuesday, December 20, 2016 07:45 - CONCLUSION: Underinflation with atelectasis at the lung bases. Otherwise, no acute finding is appreciated. Roshan Galvez MD Objective Remarks GENERAL: 41-year-old male, very skinny, resting in bed in no acute distress. Bitemporal waisting. SKIN: Warm and dry. Multiple tattoos bilateral upper extremities CARDIOVASCULAR: Tachycardic, RR. S1, S2 no S4. Do not appreciate murmur RESPIRATORY: Clear to auscultation. Breath sounds equal bilaterally. GASTROINTESTINAL: Abdomen soft, non-tender, nondistended. Hepatic and splenic margins not palpable. MUSCULOSKELETAL: Extremities without significant peripheral edema. S/p surgery drain was removed, dressing c/d/i around T2/3 thoracic spine NEUROLOGICAL: Awake and alert. No obvious cranial nerve deficits. Motor grossly within normal limits. Five out of 5 muscle strength in the arms and legs. Normal speech. Procedures Thoracic paraspinous abscess s/p Thoracic wound debridement, evacuation paraspinous abscess by Dr Pickard neurosurgery on 01/02/17 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 - Osteomyelitis of vertebra, site unspecified (2) Gastroesophageal reflux disease ICD Code: K21.9 - Gastro-esophageal reflux disease without esophagitis (3) Acute kidney injury ICD Code: N17.9 - Acute kidney failure, unspecified (4) Thrombocytosis ICD Code: D47.3 - Essential (hemorrhagic) thrombocythemia (5) Microcytic anemia ICD Code: D50.9 - Iron deficiency anemia, unspecified (6) Leukocytosis ICD Code: D72.829 - Elevated white blood cell count, unspecified (7) Hyperkalemia ICD Code: E87.5 - Hyperkalemia (8) Discitis ICD Code: M46.40 - Discitis Status: Acute (9) Renal failure ICD Code: N19 - Renal failure Status: Acute (10) Intravenous drug abuse in remission ICD Code: F19.10 - Intravenous drug abuse in remission Status: Acute (11) HTN (hypertension) ICD Code: I10 - Essential (primary) hypertension Status: Acute (12) Osteomyelitis ICD Code: M86.9 - Osteomyelitis Status: Acute (13) Tobacco abuse ICD Code: Z72.0 - Tobacco abuse Status: Acute (14) Pulmonary abscess ICD Code: J85.2 - Abscess of lung without pneumonia Status: Acute Assessment and Plan Neuro/Psych: T5/6 through T7/8 discitis Thoracic paraspinous abscess Pathologic fractures T5, 6 and 7. 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 On percocet per pain sclae 1-5 , dilaudid for pain 6-10 and add dilaudid 0.5 for breakthrough pain . Consult palliative care for bass management. Previously OxyContin 40 mg twice a day with Dilaudid 4 mg every 4 hours when necessary breakthrough pain Currently on amitriptyline 25 mg a night for depression Thiamine, multivitamin and folate daily Neurosurgery/Dr. Pickard consulted, ff MRI repeat 12/27/16 reviewed findings discussed with Dr Cruz ID specialist. patient with progression of osteomyelitis /discitis. Neurosurgery reevaluated for surgical intervention. S/p surgical intervention by Dr Urbina 01/02/17 Thoracic paraspinous abscess s/p Thoracic wound debridement, evacuation paraspinous abscess by Dr Pickard neurosurgery on 01/02/17 01/03/17 Give additional 0.5 mg dilaudid as patient with pain and tachycardic CV: Sinus tachycardia 2-D echocardiogram 05/29 revealed EF 55-60%. No regional wall motion abnormality. Currently normal saline at 84 cc an hour. Resp: Tobaccoism Nasal cannula to maintain saturations greater than or equal to 92% Incentive spirometry while awake As needed albuterol aerosols Chest x-ray 12/20 revealed no acute findings GI: Regular diet Pantoprazole 40 mg daily for GI prophylaxis Docusate sodium/senna 1 tablet twice daily for bowel regimen Follow-up liver function tests : History of suprapubic catheter Currently no acute issues Endo: Sliding-scale insulin if indicated to maintain euglycemia Renal: Acute kidney injury - resolved Monitor urine output Accurate I's and O's Currently on normal saline at 84 cc an hour Repeat labs in a.m. Heme: Microcytic anemia Check iron studies/ferritin. Patient with iron deficiency anemia. Start ferrous sulfate 325 mg by mouth twice a day. Peripheral smear Hemoccult stool Follow-up CBC in a.m. Severe protein calorie malnutrition, low BMI of 17.6, muscle waiting. 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 Consult cracker off. ID: Paravertebral abscess With MSSA and Ancef is started 12/26/16 per ID recommendations and vancomycin/ cefepime was DCd 12/20 - Blood cultures no growth. Wound culture with staph aureus. Infectious disease consultation appreciated with Dr. Cruz. Awaiting follow- up Mycobacterium abscesses cultures. S/P paravertebral abscess aspiration by IR on 12/22/16 with 2 cc of foul smelling red fluid. Cultures staph Aureus pansensitive. ID specialist also ff. Spoke with Dr Mike ID specialist. MRI back 12/27/16 per ID recommendations Back wound with large amount of pus, abx changed to Ancef per ID. Anticipate long course of IV abx PICC per ID MSK: PT evaluate and treat Severe Protein calorie malnutrition BMI of 78, low albumin of 1.7. He can repeat, muscle wasting. Bitemporal wasting. 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 Access - Utilize peripheral IV. Central line if indicated Prophylaxis - GI - pantoprazole - DVT - SCD/holding pharmacological prophylaxis in light of possible surgical intervention Consult PT and OT Discussed with the patient, nurse, ID specialist Dr Cruz and neurosurgery DC plan: difficult DC , discussed with [facility] case management. Plan to DC to SNF. CM ff for DC plan as well. Patient will need wound care, PT, IV antibiotic Ancef per ID recommendations, and pain management at DC. To follow up as Op with PCP and consultants. Needs clearance by neurosurgery and ID to arrange abx at DC also. Patient however with MRI showing worsening discitis/osteomyelitis , reevaluation by neurosurgery for surgical intervention. Not cleared for DC yet. S/P surgical intervention per neurosurgery 01/02/17. Drain was removed per neurosurgery;. Patient on dilaudid for pain meds per surgery considering tapering down pain meds. Case management ff for DC plan, pending placement to SNF. Also ID Dr Mike to reevaluate and give final recommendations for abx at DC, and clearance for DC. Problem Qualifiers (1) Gastroesophageal reflux disease: Qualified Codes: K21.9 - Gastro-esophageal reflux disease without esophagitis (2) Leukocytosis: Qualified Codes: D72.829 - Elevated white blood cell count, unspecified (3) Discitis: Qualified Codes: M46.44 - Discitis, unspecified, thoracic region (4) Renal failure: Qualified Codes: N17.9 - Acute kidney failure, unspecified; N18.9 - Chronic kidney disease, unspecified (5) HTN (hypertension): Qualified Codes: I10 - Essential (primary) hypertension (6) Osteomyelitis: Qualified Codes: M86.8X0 - Other osteomyelitis, multiple sites (7) Pulmonary abscess: Qualified Codes: J85.2 - Abscess of lung without pneumonia Ariadna Sotomayor MD Jan 05, 2017 11:42
[2017-01-05 12:00] VITALS: BP 105/72; PULSE 110; RESP 18; TEMP 97.5; O2SAT 98
[2017-01-05 20:00] VITALS: BP 102/59; PULSE 107; RESP 20; TEMP 97.9; O2SAT 98
[2017-01-05] MEDS: AMITRIPTYLINE HCL 25 MG TAB PO SCH (21:55)
[2017-01-05] MEDS: SODIUM CHLORIDE 0.9% FLUSH 5 ML FLUSH IVF SCH ×2 (21:56→23:25)
[2017-01-06] VITALS: BP 92/52; PULSE 102; RESP 20; TEMP 98.5; O2SAT 98
[2017-01-06] MEDS: HYDROmorphone HCL PF 0.5 MG/0.5 ML SYRINGE IV PUSH PRN ×6 (00:02→20:30)
[2017-01-06] MEDS: HYDROmorphone HCL PF 1 MG/ML VIAL IV PUSH PRN ×6 (02:16→22:08)
[2017-01-06] MEDS: ceFAZolin 2 GM PREMIX 50 ML IV SCH ×3 (03:27→18:08)
[2017-01-06 04:00] VITALS: BP 105/68; PULSE 90; RESP 20; TEMP 98.3; O2SAT 97
[2017-01-06] MEDS: CHLORHEXIDINE GLUCONATE 2 % 1 PACK (2 CLOTHS) TOP SCH (04:00)
[2017-01-06] MEDS: METHOCARBAMOL 500 MG TAB PO SCH ×3 (05:53→22:08)
[2017-01-06] MEDS: INSULIN NovoLIN REGULAR SUPPLEMENTAL SCALE SQ SCH ×4 (08:00→20:34)
[2017-01-06] MEDS: DOCUSATE SODIUM 50 MG/SENNA 8.6 MG TAB PO SCH ×2 (08:31→20:33)
[2017-01-06] MEDS: MULTIVITAMIN TAB PO SCH (08:31)
[2017-01-06] MEDS: FOLIC ACID 1 MG TAB PO SCH (08:31)
[2017-01-06] MEDS: PANTOPRAZOLE SOD 40 MG DELAYED RELEASE TAB PO SCH (08:31)
[2017-01-06] MEDS: THIAMINE HCL 100 MG TAB PO SCH (08:31)
[2017-01-06] MEDS: oxyCODONE HCL 40 MG CONTROLLED RELEASE TAB PO SCH ×2 (08:33→20:32)
[2017-01-06] MEDS: SODIUM CHLORIDE 0.9% FLUSH 5 ML FLUSH IVF SCH ×2 (08:34→20:34)
[2017-01-06] MEDS: oxyCODONE/ACETAMINOPHEN 10 MG/325 MG TAB PO PRN ×3 (08:48→21:02)
--- NOTE | 2017-01-06 10:32 | HHI.PR ---
Subjective Remarks This is a pleasant 41 y/o Male with IV drug abuse, multiple infections spinal [id number], recently had Thoracic osteomyelitis, with paraspinous abscess and underwent a T4-5 laminectomy, evacuation abscess, culture grew mycobacterium abscessus. yesterday Neurosurgery removed drain, 01/06: Stable in his bedroom, discussed with Infectious Disease specialist Doctor Anthony he is ready to go from her standpoint, not yet found placement by Insurance Customer Service Specialist, will try to set him for discharge tomorrow of next Sunday will need to start working on his Pain medicine at this time IV, complaint of generalized pain. No nausea, vomit or diarrhea. Objective Vital Signs Date Time Temp Pulse Resp B/P (MAP) Pulse Ox O2 Delivery O2 Flow Rate FiO2 01/06/17 09:33 20 01/06/17 09:33 20 01/06/17 09:10 20 01/06/17 04:00 98.3 90 20 105/68 (80) 97 01/06/17 00:00 98.5 102 20 92/52 (65) 98 01/05/17 20:00 97.9 107 20 102/59 (73) 98 01/05/17 18:30 16 01/05/17 12:00 97.5 110 18 105/72 (83) 98 I/O 01/05/17 01/05/17 01/05/17 01/06/17 01/06/17 01/06/17 07:00 15:00 23:00 07:00 15:00 23:00 Intake Total 50 ml Output Total 1800 ml 300 ml 600 ml 1000 ml Balance -1800 ml -300 ml -550 ml -1000 ml IV Total 50 ml Output Urine Total 1800 ml 300 ml 600 ml 1000 ml Result Diagram: 01/05/17 0735 01/05/17 0735 Imaging Last Impressions Thoracic Spine MRI 12/27/16 0000 Signed Impressions: Service Date/Time: Tuesday, December 27, 2016 12:44 - CONCLUSION: 1. When compared to the prior study there has been progression in the discitis/osteomyelitis with worsening osteomyelitis extending from T4-T7 and development of a new epidural abscess that extends into the paraspinal soft tissues posteriorly. The anterior paraspinal fluid collection is smaller from the prior study. Gopal Cates Jr., MD Chest CT 12/21/16 0000 Signed Impressions: Service Date/Time: December 11:52 - CONCLUSION: 1. Abnormal paraspinal fluid and soft tissue containing gas highly suspicious for a paraspinal abscess. This finding is similar distribution but decreased from the prior exam. It extends from approximately T3-T8. 2. There is an open wound on the midline back with contiguous subcutaneous air collection which extends to the area of prior laminectomy. There is a small amount of air within the spinal canal, likely in the epidural space. 3. Focal airspace consolidation in the right lower lobe with partial cavitation measuring approximately 2.3 x 1.1 cm. There was an area of consolidation on the prior examination and in identical location. However, it has decreased in size from the prior study. 4. Stable sclerosis and partial destruction of what is thought to be the T7 vertebral body. 5. Small bilateral pleural effusions. Roshan Galvez MD Abscess Drainage CT 12/21/16 0000 Signed Impressions: Service Date/Time: December 12:17 - CONCLUSION: Uncomplicated CT guided aspiration of the paraspinal fluid collection. I was only able to aspirate approximately 1-2 cc of reddish foul-smelling fluid. The sample was saved and sent to the lab for microbiological analysis. Roshan Galvez MD Chest X-Ray 12/20/16 0000 Signed Impressions: Service Date/Time: Tuesday, December 20, 2016 07:45 - CONCLUSION: Underinflation with atelectasis at the lung bases. Otherwise, no acute finding is appreciated. Roshan Galvez MD Procedures Thoracic paraspinous abscess s/p Thoracic wound debridement, evacuation paraspinous abscess by Dr Pickard neurosurgery on 01/02/17 Other Results Laboratory Tests Test 12/20/16 10:00 12/20/16 13:00 12/20/16 13:14 12/21/16 03:29 Nasal Screen MRSA (PCR) MRSA NOT DETECTED Hematology Comments Fibrinogen 505 mg/dL Ammonia 30 MCMOL/L Total Creatine Kinase 39 U/L Troponin I LESS THAN 0.02 NG/ML Amylase Level 43 U/L Lipase 63 U/L Thyroid Stimulating Hormone 3rd Gen 2.040 uIU/ML Differential Total Cells Counted 100 Neutrophils % (Manual) 57 % Band Neutrophils % 10 % Lymphocytes % 20 % Monocytes % 12 % Eosinophils % 1 % Neutrophils # (Manual) 3.8 TH/MM3 Toxic Granulation 1+ Platelet Estimate HIGH Platelet Morphology Comment ENLARGED Blood Smear Pathologist Review Lactic Acid Level 0.7 mmol/L Blood Urea Nitrogen 18 MG/DL Creatinine 0.79 MG/DL Random Glucose 79 MG/DL Total Protein 7.4 GM/DL Albumin 1.7 GM/DL Calcium Level 8.1 MG/DL Phosphorus Level 3.3 MG/DL Magnesium Level 2.2 MG/DL Alkaline Phosphatase 86 U/L Aspartate Amino Transf (AST/SGOT) 13 U/L Alanine Aminotransferase (ALT/SGPT) 21 U/L Total Bilirubin 0.2 MG/DL Sodium Level 137 MEQ/L Potassium Level 4.1 MEQ/L Chloride Level 105 MEQ/L Carbon Dioxide Level 25.9 MEQ/L Test 12/21/16 14:30 12/23/16 04:50 12/27/16 14:21 01/02/17 05:50 Iron Level 56 MCG/DL Total Iron Binding Capacity 309 MCG/DL Percent Iron Saturation 18.1 % Ferritin 193 NG/ML Vancomycin Level Trough 21.1 MCG/ML Erythrocyte Sedimentation Rate 65 mm/hr HIV (1&2) Antibody NEGATIVE Prothrombin Time 10.7 SEC Prothromb Time International Ratio 1.0 RATIO Activated Partial Thromboplast Time 27.5 SEC Blood Urea Nitrogen 12 MG/DL Creatinine 0.74 MG/DL Random Glucose 92 MG/DL Calcium Level 8.8 MG/DL Magnesium Level 1.8 MG/DL Sodium Level 134 MEQ/L Potassium Level 4.2 MEQ/L Chloride Level 97 MEQ/L Carbon Dioxide Level 30.4 MEQ/L Test 01/05/17 07:35 White Blood Count 4.3 TH/MM3 Red Blood Count 4.22 MIL/MM3 Hemoglobin 10.0 GM/DL Hematocrit 30.3 % Mean Corpuscular Volume 71.8 FL Mean Corpuscular Hemoglobin 23.7 PG Mean Corpuscular Hemoglobin Concent 33.0 % Red Cell Distribution Width 22.1 % Platelet Count 373 TH/MM3 Mean Platelet Volume 7.4 FL Neutrophils (%) (Auto) 44.7 % Lymphocytes (%) (Auto) 36.9 % Monocytes (%) (Auto) 10.9 % Eosinophils (%) (Auto) 6.8 % Basophils (%) (Auto) 0.7 % Neutrophils # (Auto) 1.9 TH/MM3 Lymphocytes # (Auto) 1.6 TH/MM3 Monocytes # (Auto) 0.5 TH/MM3 Eosinophils # (Auto) 0.3 TH/MM3 Basophils # (Auto) 0.0 TH/MM3 CBC Comment DIFF FINAL Differential Comment Blood Urea Nitrogen 12 MG/DL Creatinine 0.62 MG/DL Random Glucose 96 MG/DL Calcium Level 8.6 MG/DL Sodium Level 137 MEQ/L Potassium Level 4.1 MEQ/L Chloride Level 100 MEQ/L Carbon Dioxide Level 29.9 MEQ/L Anion Gap 7 MEQ/L Estimat Glomerular Filtration Rate 142 ML/MIN Objective Remarks GENERAL: 41-year-old male, very skinny, resting in bed in no acute distress. Bitemporal waisting. SKIN: Warm and dry. Multiple tattoos bilateral upper extremities CARDIOVASCULAR: Tachycardic, RR. S1, S2 no S4. Do not appreciate murmur RESPIRATORY: Clear to auscultation. Breath sounds equal bilaterally. GASTROINTESTINAL: Abdomen soft, non-tender, nondistended. Hepatic and splenic margins not palpable. MUSCULOSKELETAL: Extremities without significant peripheral edema. S/p surgery drain was removed, dressing c/d/i around T2/3 thoracic spine NEUROLOGICAL: Awake and alert. No obvious cranial nerve deficits. Motor grossly within normal limits. Five out of 5 muscle strength in the arms and legs. Normal speech. Medications and IVs Current Medications Medications (Trade) Dose Ordered Sig/Rony Route Start Time Stop Time Status Last Admin (Tylenol) 650 mg Q6H PRN PO 12/20/16 07:15 (Protonix) 40 mg DAILY PO 12/20/16 09:00 01/06/17 08:31 (Zofran Inj) 4 mg Q6H PRN IV PUSH 12/20/16 07:15 (Albuterol Neb) 2.5 mg Q2HR NEB PRN INH 12/20/16 07:15 Miscellaneous Information 1 Q361D XX 12/20/16 07:15 (Chlorhexidine 2% Cloth) Taper DAILY@04 TOP 12/21/16 04:00 12/17/17 03:59 12/24/16 04:00 (Chlorhexidine 2% Cloth) 3 pack UNSCH PRN TOP 12/20/16 07:15 (Gerda-Colace) 1 tab BID PO 12/20/16 09:00 01/06/17 08:31 (Milk Of Magnesia Liq) 30 ml Q12H PRN PO 12/20/16 07:15 (Senokot) 17.2 mg Q12H PRN PO 12/20/16 07:15 (Dulcolax Supp) 10 mg DAILY PRN RECTAL 12/20/16 07:15 (Lactulose Liq) 30 ml DAILY PRN PO 12/20/16 07:15 (Elavil) 25 mg HS PO 12/20/16 21:00 01/05/17 21:55 (Robaxin) 500 mg Q8HR PO 12/20/16 14:00 01/06/17 05:53 (D50w (Vial) Inj) 50 ml UNSCH PRN IV PUSH 12/20/16 12:30 (Glucagon Inj) 1 mg UNSCH PRN OTHER 12/20/16 12:30 (NovoLIN R SUPPLEMENTAL SCALE) 1 ACHS SLIDING SCALE SQ 12/20/16 17:00 12/21/16 20:42 (Vitamin B1) 100 mg DAILY PO 12/21/16 09:00 01/06/17 08:31 (Folate) 1 mg DAILY PO 12/21/16 09:00 01/06/17 08:31 (Theragran) 1 tab DAILY PO 12/21/16 09:00 01/06/17 08:31 (Dilaudid Pf Inj) 1 mg Q4H PRN IV PUSH 12/21/16 18:00 01/06/17 10:13 (OxyCONTIN CR) 40 mg Q12HR PO 12/21/16 21:00 01/06/17 08:33 (Percocet 10-325 Mg) 1 tab Q4H PRN PO 12/21/16 16:45 01/06/17 08:48 (Motrin) 400 mg Q8H PRN PO 12/22/16 19:00 12/23/16 20:05 (Dilaudid Pf Inj) 0.5 mg Q4H PRN IV PUSH 12/23/16 08:00 01/06/17 08:33 (Ferrous Sulfate) 325 mg BID@,17 PO 12/24/16 12:00 01/05/17 17:00 Cefazolin Sodium/ Dextrose 50 ml @ 150 mls/hr Q8H IV 12/26/16 11:00 01/06/17 10:12 (NS Flush) 2 ml UNSCH PRN IVF 01/02/17 22:00 (NS Flush) 2 ml BID IVF 01/03/17 09:00 01/06/17 08:34 A/P Assessment and Plan T5/6 through T7/8 discitis Thoracic paraspinous abscess Pathologic fractures T5, 6 and 7. 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 On percocet per pain sclae 1-5 , dilaudid for pain 6-10 and add dilaudid 0.5 for breakthrough pain . Consult palliative care for bass management. Previously OxyContin 40 mg twice a day with Dilaudid 4 mg every 4 hours when necessary breakthrough pain Currently on amitriptyline 25 mg a night for depression Thiamine, multivitamin and folate daily Neurosurgery/Dr. Pickard consulted, ff MRI repeat 12/27/16 reviewed findings discussed with Dr Cruz ID specialist. patient with progression of osteomyelitis /discitis. Neurosurgery reevaluated for surgical intervention. S/p surgical intervention by Dr Urbina 01/02/17 Thoracic paraspinous abscess s/p Thoracic wound debridement, evacuation paraspinous abscess by Dr Pickard neurosurgery on 01/02/17 01/03/17 Give additional 0.5 mg dilaudid as patient with pain and tachycardic CV: Sinus tachycardia 2-D echocardiogram 05/29 revealed EF 55-60%. No regional wall motion abnormality. Currently normal saline at 84 cc an hour. Resp: Tobaccoism Nasal cannula to maintain saturations greater than or equal to 92% Incentive spirometry while awake As needed albuterol aerosols Chest x-ray 12/20 revealed no acute findings GI: Regular diet Pantoprazole 40 mg daily for GI prophylaxis Docusate sodium/senna 1 tablet twice daily for bowel regimen Follow-up liver function tests : History of suprapubic catheter Currently no acute issues Endo: Sliding-scale insulin if indicated to maintain euglycemia Renal: Acute kidney injury - resolved Monitor urine output Accurate I's and O's Currently on normal saline at 84 cc an hour Repeat labs in a.m. Heme: Microcytic anemia Check iron studies/ferritin. Patient with iron deficiency anemia. Start ferrous sulfate 325 mg by mouth twice a day. Peripheral smear Hemoccult stool Follow-up CBC in a.m. Severe protein calorie malnutrition, low BMI of 17.6, muscle waiting. 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 Consult broaching machine repairer. ID: Paravertebral abscess With MSSA and Ancef is started 12/26/16 per ID recommendations and vancomycin/ cefepime was DCd 12/20 - Blood cultures no growth. Wound culture with staph aureus. Infectious disease consultation appreciated with Dr. Cruz. Awaiting follow- up Mycobacterium abscesses cultures. S/P paravertebral abscess aspiration by IR on 12/22/16 with 2 cc of foul smelling red fluid. Cultures staph Aureus pansensitive. ID specialist also ff. Spoke with Dr Mike ID specialist. MRI back 12/27/16 per ID recommendations Back wound with large amount of pus, abx changed to Ancef per ID. Anticipate long course of IV abx PICC per ID MSK: PT evaluate and treat Severe Protein calorie malnutrition BMI of 78, low albumin of 1.7. He can repeat, muscle wasting. Bitemporal wasting. 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 Access - Utilize peripheral IV. Central line if indicated Prophylaxis - GI - pantoprazole - DVT - SCD/holding pharmacological prophylaxis in light of possible surgical intervention Consult PT and OT Discussed with the patient, nurse, ID specialist Dr Cruz and neurosurgery Discharge Planning Plan to DC to SNF. CM ff for DC plan as well. Patient will need wound care, PT, IV antibiotic Ancef per ID recommendations, and pain management at DC. To follow up as Op with PCP and consultants. Needs clearance by neurosurgery and ID to arrange abx at DC also. Patient however with MRI showing worsening discitis/osteomyelitis , reevaluation by neurosurgery for surgical intervention. Not cleared for DC yet. S/P surgical intervention per neurosurgery 01/02/17. Drain was removed per neurosurgery;. Patient on dilaudid for pain meds per surgery considering tapering down pain meds. Case management ff for DC plan, pending placement to SNF. Okay to discharge from ID specialist standpoint. Patrick Sheffield MD Jan 06, 2017 10:32 am
[2017-01-06] MEDS: FERROUS SULFATE 325 MG (65 MG ELEMENTAL IRON) TAB PO SCH ×2 (12:19→16:32)
[2017-01-06 12:24] VITALS: BP 94/62; PULSE 94; RESP 20; TEMP 97.6; O2SAT 98
--- NOTE | 2017-01-06 12:53 | HHI.IDPN ---
Subjective Subjective Remarks pt co back pain no fever sp Thoracic wound debridement, evacuation paraspinous abscess Jan 02, 2017by Dr Pickard Clx NGTD Antibiotics ancef Past Medical History IVDU chronic vertebral osteo Allergies: Coded Allergies: aspirin (Unverified Allergy, Severe, 12/20/16) PATIENT STATES HE HAD A HOLE IN HIS HEART WHEN HE WAS BORN AND HE WAS TOLD NOT TO TAKE ASPIRIN. DETENTION MAR STATES NO KNOWN ALLERGIES PATIENT DENIES ALLERGY TO ASPIRIN. 04/01/13 Objective . Vital Signs Date Time Temp Pulse Resp B/P (MAP) Pulse Ox O2 Delivery O2 Flow Rate FiO2 01/06/17 12:24 97.6 94 20 94/62 (73) 98 01/06/17 10:45 20 01/06/17 09:33 20 01/06/17 09:33 20 01/06/17 09:10 20 01/06/17 04:00 98.3 90 20 105/68 (80) 97 01/06/17 00:00 98.5 102 20 92/52 (65) 98 01/05/17 20:00 97.9 107 20 102/59 (73) 98 01/06/17 01/06/17 01/07/17 15:00 23:00 07:00 Intake Total 50 ml Output Total 1000 ml Balance -950 ml IV Total 50 ml Output Urine Total 1000 ml . Laboratory Tests Test 01/05/17 07:35 White Blood Count 4.3 TH/MM3 Red Blood Count 4.22 MIL/MM3 Hemoglobin 10.0 GM/DL Hematocrit 30.3 % Mean Corpuscular Volume 71.8 FL Mean Corpuscular Hemoglobin 23.7 PG Mean Corpuscular Hemoglobin Concent 33.0 % Red Cell Distribution Width 22.1 % Platelet Count 373 TH/MM3 Mean Platelet Volume 7.4 FL Neutrophils (%) (Auto) 44.7 % Lymphocytes (%) (Auto) 36.9 % Monocytes (%) (Auto) 10.9 % Eosinophils (%) (Auto) 6.8 % Basophils (%) (Auto) 0.7 % Neutrophils # (Auto) 1.9 TH/MM3 Lymphocytes # (Auto) 1.6 TH/MM3 Monocytes # (Auto) 0.5 TH/MM3 Eosinophils # (Auto) 0.3 TH/MM3 Basophils # (Auto) 0.0 TH/MM3 CBC Comment DIFF FINAL Differential Comment Laboratory Tests Test 01/05/17 07:35 Blood Urea Nitrogen 12 MG/DL Creatinine 0.62 MG/DL Random Glucose 96 MG/DL Calcium Level 8.6 MG/DL Sodium Level 137 MEQ/L Potassium Level 4.1 MEQ/L Chloride Level 100 MEQ/L Carbon Dioxide Level 29.9 MEQ/L Anion Gap 7 MEQ/L Estimat Glomerular Filtration Rate 142 ML/MIN Imaging Last Impressions Thoracic Spine MRI 12/27/16 0000 Signed Impressions: Service Date/Time: Tuesday, December 27, 2016 12:44 - CONCLUSION: 1. When compared to the prior study there has been progression in the discitis/osteomyelitis with worsening osteomyelitis extending from T4-T7 and development of a new epidural abscess that extends into the paraspinal soft tissues posteriorly. The anterior paraspinal fluid collection is smaller from the prior study. Gopal Cates Jr., MD Chest CT 12/21/16 0000 Signed Impressions: Service Date/Time: December 11:52 - CONCLUSION: 1. Abnormal paraspinal fluid and soft tissue containing gas highly suspicious for a paraspinal abscess. This finding is similar distribution but decreased from the prior exam. It extends from approximately T3-T8. 2. There is an open wound on the midline back with contiguous subcutaneous air collection which extends to the area of prior laminectomy. There is a small amount of air within the spinal canal, likely in the epidural space. 3. Focal airspace consolidation in the right lower lobe with partial cavitation measuring approximately 2.3 x 1.1 cm. There was an area of consolidation on the prior examination and in identical location. However, it has decreased in size from the prior study. 4. Stable sclerosis and partial destruction of what is thought to be the T7 vertebral body. 5. Small bilateral pleural effusions. Roshan Galvez MD Abscess Drainage CT 12/21/16 0000 Signed Impressions: Service Date/Time: December 12:17 - CONCLUSION: Uncomplicated CT guided aspiration of the paraspinal fluid collection. I was only able to aspirate approximately 1-2 cc of reddish foul-smelling fluid. The sample was saved and sent to the lab for microbiological analysis. Roshan Galvez MD Chest X-Ray 12/20/16 0000 Signed Impressions: Service Date/Time: Tuesday, December 20, 2016 07:45 - CONCLUSION: Underinflation with atelectasis at the lung bases. Otherwise, no acute finding is appreciated. Roshan Galvez MD Physical Exam CONSTITUTIONAL/GENERAL: This is an undernourished chronically ill appearing patient, in no apparent distress. TUBES/LINES/DRAINS: SKIN: No jaundice, rashes, or lesions. Skin temperature appropriate. Not diaphoretic. CARDIOVASCULAR: Regular rate and rhythm without murmurs, gallops, or rubs. No JVD. Peripheral pulses symmetric. RESPIRATORY/CHEST: Symmetric, unlabored respirations. Clear to auscultation. Breath sounds equal bilaterally. No wheezes, rales, or rhonchi. GASTROINTESTINAL: Abdomen soft, non-tender, nondistended. No hepato-splenomegaly , or palpable masses. No guarding. Bowel sounds present. GENITOURINARY: Without palpable bladder distension. MUSCULOSKELETAL: Extremities without clubbing, cyanosis, or edema. Muscle bulk wasting BLE No calf tenderness. No mottling or clubbing. BACK: Kyphotic deformity of thoracic spine Back wound with minimal dry serosang d/c, stirry strips in place NEUROLOGICAL: Awake and alert. Motor and sensory grossly within normal limits. Follows commands. Clear speech . Moves all extremities. PSYCHIATRIC: calm, cooperative Assessment & Plan Remarks Chronic vertebral osteo, recurring epidural abscess, M. abscess, MSSA pathologic fractures T5, 6 and 7. Discitis from T5/6 to T7/8. Prevertebral abscess from T4 through T10 9.5 cm craniocaudal. sp drainage - clx P Large epidural phlegmon causing spinal stenosis sp CT guided drainage, but apparently persistent epidural abscess on todays MRI R hip pain with h/o ORIF HIV TOSIN negative Rec'sd: cont cefazoline x 12 weeks, followed by chronic suppression abx fu AFB clx OK to dc from ID [facility] once arranged Britney Mg MD Jan 06, 2017 12:53
--- NOTE | 2017-01-06 12:57 | HHI.FF ---
Infusion Therapy Location of Infusion Therapy: [facility] Infusion Therapy Order Patient Information Patient Weight 52.8 kg Diagnosis: Diagnosis vertebral osteo, chronic Coded Allergies: aspirin (Unverified Allergy, Severe, 12/20/16) PATIENT STATES HE HAD A HOLE IN HIS HEART WHEN HE WAS BORN AND HE WAS TOLD NOT TO TAKE ASPIRIN. RETIREMENT MAR STATES NO KNOWN ALLERGIES PATIENT DENIES ALLERGY TO ASPIRIN. 04/01/13 Administer Medication Cefazolin 2 grams IV q 8 hours Start Treatment: Jan 06, 2017 Stop Treatment: Mar 27, 2017 Additional Information Venous access: PICC Line Additional Instructions [x] Peripheral flush and dressing changes per protocol [x] Implanted port and central electrical line worker: * Implanted port: 10 ml Normal Saline followed by 5 ml Heparin 100 units/ml Heparin flush after each use and monthly to maintain. [] May leave port accessed during therapy. [] May leave peripheral site accessed for duration of therapy. [x] If patient has SOB or respiratory distress, check oxygen saturation. If less than 90% or clinical signs of respiratory distress, administer oxygen at 2 L/min. via nasal cannula and notify physician. [x] Anaphylaxis/Reaction orders: * Stop infusion. * Keep IV line open with saline flush. * Notify physician. * Monitor vital signs every 15 minutes until symptoms resolve. * Check Oxygen saturation; Oxygen at 2 L/min. via nasal cannula if less than 90% or clinical signs of respiratory distress. * Administer diphenhydramine (Benadryl) 25 mg IV STAT, (unless patient has received as pre-med). May repeat once, if necessary. * Solu-Cortef 250 mg IVP over 30-60 seconds, use 100 mg vials for each dissolution. * Epinephrine (1mg/1 ml) 0.3 mg subcutaneously or IVP now with any signs of respiratory distress. * Check with physician for new additional pre-med orders if patient is re- challenged or re-treated. [x] May remove PICC line when treatment complete, after confirming with Physician. [x] If the patient is admitted to the hospital, the ED, or transferred via EVAC , complete transfer form including medication reconciliation order sheet. Laboratory Tests Weekly Labs: BMP, CBC w/diff Britney Cruz MD Jan 06, 2017 12:57
[2017-01-06 16:01] VITALS: BP 115/78; PULSE 114; RESP 20; TEMP 98.2; O2SAT 98
[2017-01-06 20:00] VITALS: BP 110/74; PULSE 99; RESP 17; TEMP 98.3; O2SAT 98
[2017-01-06] MEDS: AMITRIPTYLINE HCL 25 MG TAB PO SCH (20:32)
[2017-01-07] VITALS: BP 111/72; PULSE 98; RESP 16; TEMP 98.1; O2SAT 97
[2017-01-07] MEDS: HYDROmorphone HCL PF 0.5 MG/0.5 ML SYRINGE IV PUSH PRN ×4 (00:28→12:35)
[2017-01-07] MEDS: oxyCODONE/ACETAMINOPHEN 10 MG/325 MG TAB PO PRN ×3 (01:04→11:51)
[2017-01-07] MEDS: HYDROmorphone HCL PF 1 MG/ML VIAL IV PUSH PRN ×4 (02:03→13:59)
[2017-01-07] MEDS: ceFAZolin 2 GM PREMIX 50 ML IV SCH ×3 (02:05→18:10)
[2017-01-07 04:00] VITALS: BP 97/63; PULSE 102; RESP 16; TEMP 97.7; O2SAT 97
[2017-01-07] MEDS: CHLORHEXIDINE GLUCONATE 2 % 1 PACK (2 CLOTHS) TOP SCH (04:33)
[2017-01-07] MEDS: METHOCARBAMOL 500 MG TAB PO SCH ×3 (06:05→21:55)
[2017-01-07] MEDS: INSULIN NovoLIN REGULAR SUPPLEMENTAL SCALE SQ SCH ×4 (08:00→20:14)
[2017-01-07 08:09] VITALS: BP 102/72; PULSE 97; RESP 20; TEMP 98.2; O2SAT 96
[2017-01-07] MEDS: FOLIC ACID 1 MG TAB PO SCH (08:27)
[2017-01-07] MEDS: THIAMINE HCL 100 MG TAB PO SCH (08:27)
[2017-01-07] MEDS: DOCUSATE SODIUM 50 MG/SENNA 8.6 MG TAB PO SCH ×2 (08:27→20:12)
[2017-01-07] MEDS: MULTIVITAMIN TAB PO SCH (08:27)
[2017-01-07] MEDS: PANTOPRAZOLE SOD 40 MG DELAYED RELEASE TAB PO SCH (08:27)
[2017-01-07] MEDS: oxyCODONE HCL 40 MG CONTROLLED RELEASE TAB PO SCH ×2 (08:28→20:13)
[2017-01-07] MEDS: SODIUM CHLORIDE 0.9% FLUSH 5 ML FLUSH IVF SCH ×2 (08:28→20:13)
[2017-01-07] MEDS: FERROUS SULFATE 325 MG (65 MG ELEMENTAL IRON) TAB PO SCH ×2 (11:50→16:33)
--- NOTE | 2017-01-07 16:07 | HHI.PR ---
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 yesterday Neurosurgery removed drain, 01/06: Stable in his bedroom, discussed with Infectious Disease specialist Doctor Anthony he is ready to go from her standpoint, not yet found placement by Otorhinolaryngologist, will try to set him for discharge tomorrow of next Sunday will need to start working on his Pain medicine at this time IV, complaint of generalized pain. No nausea, vomit or diarrhea. 01/07: Discussed with the patient in the room, in order to prepare him for discharge he will need to be off IV pain medicine will give him by Mouth Dilaudid as per Nurse Carlo she states last time he was here he crushed his Oral Narcotics and administered himself IV with Milk. Objective Vital Signs Date Time Temp Pulse Resp B/P (MAP) Pulse Ox O2 Delivery O2 Flow Rate FiO2 01/07/17 14:37 20 01/07/17 12:55 20 01/07/17 12:55 20 01/07/17 09:39 20 01/07/17 08:09 98.2 97 20 102/72 (82) 96 01/07/17 04:00 97.7 102 16 97/63 (74) 97 01/07/17 00:00 98.1 98 16 111/72 (85) 97 01/06/17 20:00 98.3 99 17 110/74 (86) 98 I/O 01/06/17 01/06/17 01/06/17 01/07/17 01/07/17 01/07/17 07:00 15:00 23:00 07:00 15:00 23:00 Intake Total 50 ml 50 ml 1010 ml 1620 ml 50 ml Output Total 600 ml 1000 ml 850 ml 1550 ml Balance -550 ml -950 ml 160 ml 70 ml 50 ml Intake Oral 960 ml 1620 ml IV Total 50 ml 50 ml 50 ml 50 ml Output Urine Total 600 ml 1000 ml 850 ml 1550 ml Result Diagram: 01/05/17 0735 01/05/17 0735 Imaging Last Impressions Thoracic Spine MRI 12/27/16 0000 Signed Impressions: Service Date/Time: Tuesday, December 27, 2016 12:44 - CONCLUSION: 1. When compared to the prior study there has been progression in the discitis/osteomyelitis with worsening osteomyelitis extending from T4-T7 and development of a new epidural abscess that extends into the paraspinal soft tissues posteriorly. The anterior paraspinal fluid collection is smaller from the prior study. Gopal Cates Jr., MD Chest CT 12/21/16 0000 Signed Impressions: Service Date/Time: December 11:52 - CONCLUSION: 1. Abnormal paraspinal fluid and soft tissue containing gas highly suspicious for a paraspinal abscess. This finding is similar distribution but decreased from the prior exam. It extends from approximately T3-T8. 2. There is an open wound on the midline back with contiguous subcutaneous air collection which extends to the area of prior laminectomy. There is a small amount of air within the spinal canal, likely in the epidural space. 3. Focal airspace consolidation in the right lower lobe with partial cavitation measuring approximately 2.3 x 1.1 cm. There was an area of consolidation on the prior examination and in identical location. However, it has decreased in size from the prior study. 4. Stable sclerosis and partial destruction of what is thought to be the T7 vertebral body. 5. Small bilateral pleural effusions. Roshan Galvez MD Abscess Drainage CT 12/21/16 0000 Signed Impressions: Service Date/Time: December 12:17 - CONCLUSION: Uncomplicated CT guided aspiration of the paraspinal fluid collection. I was only able to aspirate approximately 1-2 cc of reddish foul-smelling fluid. The sample was saved and sent to the lab for microbiological analysis. Roshan Galvez MD Chest X-Ray 12/20/16 0000 Signed Impressions: Service Date/Time: Tuesday, December 20, 2016 07:45 - CONCLUSION: Underinflation with atelectasis at the lung bases. Otherwise, no acute finding is appreciated. Roshan Galvez MD Procedures Thoracic paraspinous abscess s/p Thoracic wound debridement, evacuation paraspinous abscess by Dr Pickard neurosurgery on 01/02/17 Other Results Laboratory Tests Test 12/20/16 10:00 12/20/16 13:00 12/20/16 13:14 12/21/16 03:29 Nasal Screen MRSA (PCR) MRSA NOT DETECTED Hematology Comments Fibrinogen 505 mg/dL Ammonia 30 MCMOL/L Total Creatine Kinase 39 U/L Troponin I LESS THAN 0.02 NG/ML Amylase Level 43 U/L Lipase 63 U/L Thyroid Stimulating Hormone 3rd Gen 2.040 uIU/ML Differential Total Cells Counted 100 Neutrophils % (Manual) 57 % Band Neutrophils % 10 % Lymphocytes % 20 % Monocytes % 12 % Eosinophils % 1 % Neutrophils # (Manual) 3.8 TH/MM3 Toxic Granulation 1+ Platelet Estimate HIGH Platelet Morphology Comment ENLARGED Blood Smear Pathologist Review Lactic Acid Level 0.7 mmol/L Blood Urea Nitrogen 18 MG/DL Creatinine 0.79 MG/DL Random Glucose 79 MG/DL Total Protein 7.4 GM/DL Albumin 1.7 GM/DL Calcium Level 8.1 MG/DL Phosphorus Level 3.3 MG/DL Magnesium Level 2.2 MG/DL Alkaline Phosphatase 86 U/L Aspartate Amino Transf (AST/SGOT) 13 U/L Alanine Aminotransferase (ALT/SGPT) 21 U/L Total Bilirubin 0.2 MG/DL Sodium Level 137 MEQ/L Potassium Level 4.1 MEQ/L Chloride Level 105 MEQ/L Carbon Dioxide Level 25.9 MEQ/L Test 12/21/16 14:30 12/23/16 04:50 12/27/16 14:21 01/02/17 05:50 Iron Level 56 MCG/DL Total Iron Binding Capacity 309 MCG/DL Percent Iron Saturation 18.1 % Ferritin 193 NG/ML Vancomycin Level Trough 21.1 MCG/ML Erythrocyte Sedimentation Rate 65 mm/hr HIV (1&2) Antibody NEGATIVE Prothrombin Time 10.7 SEC Prothromb Time International Ratio 1.0 RATIO Activated Partial Thromboplast Time 27.5 SEC Blood Urea Nitrogen 12 MG/DL Creatinine 0.74 MG/DL Random Glucose 92 MG/DL Calcium Level 8.8 MG/DL Magnesium Level 1.8 MG/DL Sodium Level 134 MEQ/L Potassium Level 4.2 MEQ/L Chloride Level 97 MEQ/L Carbon Dioxide Level 30.4 MEQ/L Test 01/05/17 07:35 White Blood Count 4.3 TH/MM3 Red Blood Count 4.22 MIL/MM3 Hemoglobin 10.0 GM/DL Hematocrit 30.3 % Mean Corpuscular Volume 71.8 FL Mean Corpuscular Hemoglobin 23.7 PG Mean Corpuscular Hemoglobin Concent 33.0 % Red Cell Distribution Width 22.1 % Platelet Count 373 TH/MM3 Mean Platelet Volume 7.4 FL Neutrophils (%) (Auto) 44.7 % Lymphocytes (%) (Auto) 36.9 % Monocytes (%) (Auto) 10.9 % Eosinophils (%) (Auto) 6.8 % Basophils (%) (Auto) 0.7 % Neutrophils # (Auto) 1.9 TH/MM3 Lymphocytes # (Auto) 1.6 TH/MM3 Monocytes # (Auto) 0.5 TH/MM3 Eosinophils # (Auto) 0.3 TH/MM3 Basophils # (Auto) 0.0 TH/MM3 CBC Comment DIFF FINAL Differential Comment Blood Urea Nitrogen 12 MG/DL Creatinine 0.62 MG/DL Random Glucose 96 MG/DL Calcium Level 8.6 MG/DL Sodium Level 137 MEQ/L Potassium Level 4.1 MEQ/L Chloride Level 100 MEQ/L Carbon Dioxide Level 29.9 MEQ/L Anion Gap 7 MEQ/L Estimat Glomerular Filtration Rate 142 ML/MIN Objective Remarks GENERAL: Well developed, in no acute distress resting in be. SKIN: Warm and dry. Multiple tattoos bilateral upper extremities CARDIOVASCULAR: Tachycardic, RR. S1, S2 no S4. Do not appreciate murmur RESPIRATORY: Clear to auscultation. Breath sounds equal bilaterally. GASTROINTESTINAL: Abdomen soft, non-tender, nondistended. Hepatic and splenic margins not palpable. MUSCULOSKELETAL: Extremities without significant peripheral edema. S/p surgery drain was removed, dressing c/d/i around T2/3 thoracic spine NEUROLOGICAL: Awake and alert. No obvious cranial nerve deficits. Motor grossly within normal limits. Five out of 5 muscle strength in the arms and legs. Normal speech. Medications and IVs Vital Signs Date Time Temp Pulse Resp B/P (MAP) Pulse Ox O2 Delivery O2 Flow Rate FiO2 01/07/17 14:37 20 01/07/17 12:55 20 01/07/17 12:55 20 01/07/17 09:39 20 01/07/17 08:09 98.2 97 20 102/72 (82) 96 01/07/17 04:00 97.7 102 16 97/63 (74) 97 01/07/17 00:00 98.1 98 16 111/72 (85) 97 01/06/17 20:00 98.3 99 17 110/74 (86) 98 A/P Assessment and Plan T5/6 through T7/8 discitis Thoracic paraspinous abscess Pathologic fractures T5, 6 and 7. 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 On percocet per pain sclae 1-5 , dilaudid for pain 6-10 and add dilaudid 0.5 for breakthrough pain . Consult palliative care for bass management. Previously OxyContin 40 mg twice a day with Dilaudid 4 mg every 4 hours when necessary breakthrough pain Currently on amitriptyline 25 mg a night for depression Thiamine, multivitamin and folate daily Neurosurgery/Dr. Pickard consulted, ff MRI repeat 12/27/16 reviewed findings discussed with Dr Cruz ID specialist. patient with progression of osteomyelitis /discitis. Neurosurgery reevaluated for surgical intervention. S/p surgical intervention by Dr Urbina 01/02/17 Thoracic paraspinous abscess s/p Thoracic wound debridement, evacuation paraspinous abscess by Dr Pickard neurosurgery on 01/02/17 01/03/17 Give additional 0.5 mg dilaudid as patient with pain and tachycardic CV: Sinus tachycardia 2-D echocardiogram 05/29 revealed EF 55-60%. No regional wall motion abnormality. Currently normal saline at 84 cc an hour. Resp: Tobaccoism Nasal cannula to maintain saturations greater than or equal to 92% Incentive spirometry while awake As needed albuterol aerosols Chest x-ray 12/20 revealed no acute findings GI: Regular diet Pantoprazole 40 mg daily for GI prophylaxis Docusate sodium/senna 1 tablet twice daily for bowel regimen Follow-up liver function tests : History of suprapubic catheter Currently no acute issues Endo: Sliding-scale insulin if indicated to maintain euglycemia Renal: Acute kidney injury - resolved Monitor urine output Accurate I's and O's Currently on normal saline at 84 cc an hour Repeat labs in a.m. Heme: Microcytic anemia Check iron studies/ferritin. Patient with iron deficiency anemia. Start ferrous sulfate 325 mg by mouth twice a day. Peripheral smear Hemoccult stool Follow-up CBC in a.m. Severe protein calorie malnutrition, low BMI of 17.6, muscle waiting. bitemporal waisting, weak hand die holder. 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 Consult operations and maintenance technician. ID: Paravertebral abscess With MSSA and Ancef is started 12/26/16 per ID recommendations and vancomycin/ cefepime was DCd 12/20 - Blood cultures no growth. Wound culture with staph aureus. Infectious disease consultation appreciated with Dr. Cruz. Awaiting follow- up Mycobacterium abscesses cultures. S/P paravertebral abscess aspiration by IR on 12/22/16 with 2 cc of foul smelling red fluid. Cultures staph Aureus pansensitive. ID specialist also ff. Spoke with Dr Mike ID specialist. MRI back 12/27/16 per ID recommendations Back wound with large amount of pus, abx changed to Ancef per ID. Anticipate long course of IV abx PICC per ID MSK: PT evaluate and treat Severe Protein calorie malnutrition BMI of 78, low albumin of 1.7. He can repeat, muscle wasting. Bitemporal wasting. 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 Access - Utilize peripheral IV. Central line if indicated Prophylaxis - GI - pantoprazole - DVT - SCD/holding pharmacological prophylaxis in light of possible surgical intervention Consult PT and OT Discussed with the patient, nurse, ID specialist Dr Cruz and neurosurgery Discharge Planning Plan to DC to SNF. CM ff for DC plan as well. Patient will need wound care, PT, IV antibiotic Ancef per ID recommendations, and pain management at DC. To follow up as Op with PCP and consultants. Needs clearance by neurosurgery and ID to arrange abx at DC also. Patient however with MRI showing worsening discitis/osteomyelitis , reevaluation by neurosurgery for surgical intervention. Not cleared for DC yet. S/P surgical intervention per neurosurgery 01/02/17. Drain was removed per neurosurgery;. Patient on dilaudid for pain meds per surgery considering tapering down pain meds. Case management ff for DC plan, pending placement to SNF. Okay to discharge from ID specialist standpoint. Patrick Sheffield MD Jan 07, 2017 16:07
[2017-01-07] MEDS: HYDROmorphone HCL 4 MG TAB PO PRN ×2 (16:33→20:13)
[2017-01-07] MEDS: AMITRIPTYLINE HCL 25 MG TAB PO SCH (20:12)
[2017-01-07 20:20] VITALS: BP 113/80; PULSE 100; RESP 16; TEMP 97.9; O2SAT 99
[2017-01-08 00:03] VITALS: BP 97/64; PULSE 102; RESP 16; TEMP 98.3; O2SAT 96
[2017-01-08] MEDS: HYDROmorphone HCL 4 MG TAB PO PRN ×6 (00:09→21:11)
[2017-01-08] MEDS: ceFAZolin 2 GM PREMIX 50 ML IV SCH ×3 (02:56→18:02)
[2017-01-08] MEDS: oxyCODONE/ACETAMINOPHEN 10 MG/325 MG TAB PO PRN ×2 (03:03→11:03)
[2017-01-08] MEDS: CHLORHEXIDINE GLUCONATE 2 % 1 PACK (2 CLOTHS) TOP SCH (04:00)
[2017-01-08] MEDS: METHOCARBAMOL 500 MG TAB PO SCH ×3 (06:05→21:12)
[2017-01-08] MEDS: INSULIN NovoLIN REGULAR SUPPLEMENTAL SCALE SQ SCH ×4 (07:41→21:00)
[2017-01-08] MEDS: MULTIVITAMIN TAB PO SCH (08:40)
[2017-01-08] MEDS: THIAMINE HCL 100 MG TAB PO SCH (08:40)
[2017-01-08] MEDS: DOCUSATE SODIUM 50 MG/SENNA 8.6 MG TAB PO SCH ×2 (08:40→21:12)
[2017-01-08] MEDS: FOLIC ACID 1 MG TAB PO SCH (08:41)
[2017-01-08] MEDS: oxyCODONE HCL 40 MG CONTROLLED RELEASE TAB PO SCH ×2 (08:41→21:12)
[2017-01-08] MEDS: PANTOPRAZOLE SOD 40 MG DELAYED RELEASE TAB PO SCH (08:41)
[2017-01-08] MEDS: SODIUM CHLORIDE 0.9% FLUSH 5 ML FLUSH IVF SCH ×2 (08:41→21:00)
[2017-01-08] MEDS: FERROUS SULFATE 325 MG (65 MG ELEMENTAL IRON) TAB PO SCH ×2 (11:03→16:55)
[2017-01-08 12:35] VITALS: BP 94/61; PULSE 122; RESP 20; TEMP 99.6; O2SAT 96
--- NOTE | 2017-01-08 14:31 | HHI.PR ---
Subjective Remarks This is a pleasant 41 y/o Male with IV drug abuse, multiple infections spinal avsvmxv-[id number], recently had Thoracic osteomyelitis, with paraspinous abscess and underwent a T4-5 laminectomy, evacuation abscess, culture grew mycobacterium abscessus. yesterday Neurosurgery removed drain, 01/06: Stable in his bedroom, discussed with Infectious Disease specialist Doctor Anthony he is ready to go from her standpoint, not yet found placement by [employer], will try to set him for discharge tomorrow of next Sunday will need to start working on his Pain medicine at this time IV, complaint of generalized pain. No nausea, vomit or diarrhea. 01/07: Discussed with the patient in the room, in order to prepare him for discharge he will need to be off IV pain medicine will give him by Mouth Dilaudid as per Nurse Miss Matos she states last time he was here he crushed his Oral Narcotics and administered himself IV with Milk. 01/08: Seen in his bedroom, seen with nurse the patient was seen injecting IV medicines, security called and also will continue by mouth pain medicines crushed and in apple sauce. a this time continue awaiting for placement. No nausea, vomit or diarrhea. Objective Vital Signs Date Time Temp Pulse Resp B/P (MAP) Pulse Ox O2 Delivery O2 Flow Rate FiO2 01/08/17 12:35 99.6 122 20 94/61 (72) 96 01/08/17 00:03 98.3 102 16 97/64 (75) 96 01/07/17 20:20 97.9 100 16 113/80 (91) 99 01/07/17 18:01 20 01/07/17 14:37 20 I/O 01/07/17 01/07/17 01/07/17 01/08/17 01/08/17 01/08/17 07:00 15:00 23:00 07:00 15:00 23:00 Intake Total 1620 ml 50 ml 1010 ml 50 ml Output Total 1550 ml 1100 ml Balance 70 ml 50 ml -90 ml 50 ml Intake Oral 1620 ml 960 ml IV Total 50 ml 50 ml 50 ml Output Urine Total 1550 ml 1100 ml Result Diagram: 01/05/17 0735 01/05/17 0735 Imaging Last Impressions Thoracic Spine MRI 12/27/16 0000 Signed Impressions: Service Date/Time: Tuesday, December 27, 2016 12:44 - CONCLUSION: 1. When compared to the prior study there has been progression in the discitis/osteomyelitis with worsening osteomyelitis extending from T4-T7 and development of a new epidural abscess that extends into the paraspinal soft tissues posteriorly. The anterior paraspinal fluid collection is smaller from the prior study. Gopal Cates Jr., MD Chest CT 12/21/16 0000 Signed Impressions: Service Date/Time: December 11:52 - CONCLUSION: 1. Abnormal paraspinal fluid and soft tissue containing gas highly suspicious for a paraspinal abscess. This finding is similar distribution but decreased from the prior exam. It extends from approximately T3-T8. 2. There is an open wound on the midline back with contiguous subcutaneous air collection which extends to the area of prior laminectomy. There is a small amount of air within the spinal canal, likely in the epidural space. 3. Focal airspace consolidation in the right lower lobe with partial cavitation measuring approximately 2.3 x 1.1 cm. There was an area of consolidation on the prior examination and in identical location. However, it has decreased in size from the prior study. 4. Stable sclerosis and partial destruction of what is thought to be the T7 vertebral body. 5. Small bilateral pleural effusions. Roshan Galvez MD Abscess Drainage CT 12/21/16 0000 Signed Impressions: Service Date/Time: December 12:17 - CONCLUSION: Uncomplicated CT guided aspiration of the paraspinal fluid collection. I was only able to aspirate approximately 1-2 cc of reddish foul-smelling fluid. The sample was saved and sent to the lab for microbiological analysis. Roshan Galvez MD Chest X-Ray 12/20/16 0000 Signed Impressions: Service Date/Time: Tuesday, December 20, 2016 07:45 - CONCLUSION: Underinflation with atelectasis at the lung bases. Otherwise, no acute finding is appreciated. Roshan Galvez MD Procedures Thoracic paraspinous abscess s/p Thoracic wound debridement, evacuation paraspinous abscess by Dr Pickard neurosurgery on 01/02/17 Other Results Laboratory Tests Test 12/20/16 10:00 12/20/16 13:00 12/20/16 13:14 12/21/16 03:29 Nasal Screen MRSA (PCR) MRSA NOT DETECTED Hematology Comments Fibrinogen 505 mg/dL Ammonia 30 MCMOL/L Total Creatine Kinase 39 U/L Troponin I LESS THAN 0.02 NG/ML Amylase Level 43 U/L Lipase 63 U/L Thyroid Stimulating Hormone 3rd Gen 2.040 uIU/ML Differential Total Cells Counted 100 Neutrophils % (Manual) 57 % Band Neutrophils % 10 % Lymphocytes % 20 % Monocytes % 12 % Eosinophils % 1 % Neutrophils # (Manual) 3.8 TH/MM3 Toxic Granulation 1+ Platelet Estimate HIGH Platelet Morphology Comment ENLARGED Blood Smear Pathologist Review Lactic Acid Level 0.7 mmol/L Blood Urea Nitrogen 18 MG/DL Creatinine 0.79 MG/DL Random Glucose 79 MG/DL Total Protein 7.4 GM/DL Albumin 1.7 GM/DL Calcium Level 8.1 MG/DL Phosphorus Level 3.3 MG/DL Magnesium Level 2.2 MG/DL Alkaline Phosphatase 86 U/L Aspartate Amino Transf (AST/SGOT) 13 U/L Alanine Aminotransferase (ALT/SGPT) 21 U/L Total Bilirubin 0.2 MG/DL Sodium Level 137 MEQ/L Potassium Level 4.1 MEQ/L Chloride Level 105 MEQ/L Carbon Dioxide Level 25.9 MEQ/L Test 12/21/16 14:30 12/23/16 04:50 12/27/16 14:21 01/02/17 05:50 Iron Level 56 MCG/DL Total Iron Binding Capacity 309 MCG/DL Percent Iron Saturation 18.1 % Ferritin 193 NG/ML Vancomycin Level Trough 21.1 MCG/ML Erythrocyte Sedimentation Rate 65 mm/hr HIV (1&2) Antibody NEGATIVE Prothrombin Time 10.7 SEC Prothromb Time International Ratio 1.0 RATIO Activated Partial Thromboplast Time 27.5 SEC Blood Urea Nitrogen 12 MG/DL Creatinine 0.74 MG/DL Random Glucose 92 MG/DL Calcium Level 8.8 MG/DL Magnesium Level 1.8 MG/DL Sodium Level 134 MEQ/L Potassium Level 4.2 MEQ/L Chloride Level 97 MEQ/L Carbon Dioxide Level 30.4 MEQ/L Test 01/05/17 07:35 White Blood Count 4.3 TH/MM3 Red Blood Count 4.22 MIL/MM3 Hemoglobin 10.0 GM/DL Hematocrit 30.3 % Mean Corpuscular Volume 71.8 FL Mean Corpuscular Hemoglobin 23.7 PG Mean Corpuscular Hemoglobin Concent 33.0 % Red Cell Distribution Width 22.1 % Platelet Count 373 TH/MM3 Mean Platelet Volume 7.4 FL Neutrophils (%) (Auto) 44.7 % Lymphocytes (%) (Auto) 36.9 % Monocytes (%) (Auto) 10.9 % Eosinophils (%) (Auto) 6.8 % Basophils (%) (Auto) 0.7 % Neutrophils # (Auto) 1.9 TH/MM3 Lymphocytes # (Auto) 1.6 TH/MM3 Monocytes # (Auto) 0.5 TH/MM3 Eosinophils # (Auto) 0.3 TH/MM3 Basophils # (Auto) 0.0 TH/MM3 CBC Comment DIFF FINAL Differential Comment Blood Urea Nitrogen 12 MG/DL Creatinine 0.62 MG/DL Random Glucose 96 MG/DL Calcium Level 8.6 MG/DL Sodium Level 137 MEQ/L Potassium Level 4.1 MEQ/L Chloride Level 100 MEQ/L Carbon Dioxide Level 29.9 MEQ/L Anion Gap 7 MEQ/L Estimat Glomerular Filtration Rate 142 ML/MIN Objective Remarks GENERAL: Well developed, in no acute distress resting in be. SKIN: Warm and dry. Multiple tattoos bilateral upper extremities CARDIOVASCULAR: Tachycardic, RR. S1, S2 no S4. Do not appreciate murmur RESPIRATORY: Clear to auscultation. Breath sounds equal bilaterally. GASTROINTESTINAL: Abdomen soft, non-tender, nondistended. Hepatic and splenic margins not palpable. MUSCULOSKELETAL: Extremities without significant peripheral edema. S/p surgery drain was removed, dressing c/d/i around T2/3 thoracic spine NEUROLOGICAL: Awake and alert. No obvious cranial nerve deficits. Medications and IVs Current Medications Medications (Trade) Dose Ordered Sig/Rony Route Start Time Stop Time Status Last Admin (Tylenol) 650 mg Q6H PRN PO 12/20/16 07:15 (Protonix) 40 mg DAILY PO 12/20/16 09:00 01/08/17 08:41 (Zofran Inj) 4 mg Q6H PRN IV PUSH 12/20/16 07:15 (Albuterol Neb) 2.5 mg Q2HR NEB PRN INH 12/20/16 07:15 Miscellaneous Information 1 Q361D XX 12/20/16 07:15 (Chlorhexidine 2% Cloth) Taper DAILY@04 TOP 12/21/16 04:00 12/17/17 03:59 12/24/16 04:00 (Chlorhexidine 2% Cloth) 3 pack UNSCH PRN TOP 12/20/16 07:15 (Gerda-Colace) 1 tab BID PO 12/20/16 09:00 01/08/17 08:40 (Milk Of Magnesia Liq) 30 ml Q12H PRN PO 12/20/16 07:15 (Senokot) 17.2 mg Q12H PRN PO 12/20/16 07:15 (Dulcolax Supp) 10 mg DAILY PRN RECTAL 12/20/16 07:15 (Lactulose Liq) 30 ml DAILY PRN PO 12/20/16 07:15 (Elavil) 25 mg HS PO 12/20/16 21:00 01/07/17 20:12 (Robaxin) 500 mg Q8HR PO 12/20/16 14:00 01/08/17 13:58 (D50w (Vial) Inj) 50 ml UNSCH PRN IV PUSH 12/20/16 12:30 (Glucagon Inj) 1 mg UNSCH PRN OTHER 12/20/16 12:30 (NovoLIN R SUPPLEMENTAL SCALE) 1 ACHS SLIDING SCALE SQ 12/20/16 17:00 12/21/16 20:42 (Vitamin B1) 100 mg DAILY PO 12/21/16 09:00 01/08/17 08:40 (Folate) 1 mg DAILY PO 12/21/16 09:00 01/08/17 08:41 (Theragran) 1 tab DAILY PO 12/21/16 09:00 01/08/17 08:40 (OxyCONTIN CR) 40 mg Q12HR PO 12/21/16 21:00 01/08/17 08:41 (Percocet 10-325 Mg) 1 tab Q4H PRN PO 12/21/16 16:45 01/08/17 11:03 (Motrin) 400 mg Q8H PRN PO 12/22/16 19:00 12/23/16 20:05 (Ferrous Sulfate) 325 mg BID@,17 PO 12/24/16 12:00 01/08/17 11:03 Cefazolin Sodium/ Dextrose 50 ml @ 150 mls/hr Q8H IV 12/26/16 11:00 01/08/17 11:03 (NS Flush) 2 ml UNSCH PRN IVF 01/02/17 22:00 (NS Flush) 2 ml BID IVF 01/03/17 09:00 01/08/17 08:41 (Dilaudid) 4 mg Q4H PRN PO 01/07/17 16:30 01/08/17 12:54 A/P Assessment and Plan T5/6 through T7/8 discitis Thoracic paraspinous abscess Pathologic fractures T5, 6 and 7. 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 Acetaminophen for fever We'll place on OxyContin 20 milligrams by mouth twice a day for pain management. On percocet per pain sclae 1-5 , dilaudid for pain 6-10 and add dilaudid 0.5 for breakthrough pain . Consult palliative care for bass management. Previously OxyContin 40 mg twice a day with Dilaudid 4 mg every 4 hours when necessary breakthrough pain Currently on amitriptyline 25 mg a night for depression Thiamine, multivitamin and folate daily Neurosurgery/Dr. Pickard consulted, ff MRI repeat 12/27/16 reviewed findings discussed with Dr Cruz ID specialist. patient with progression of osteomyelitis /discitis. Neurosurgery reevaluated for surgical intervention. S/p surgical intervention by Dr Urbina 01/02/17 Thoracic paraspinous abscess s/p Thoracic wound debridement, evacuation paraspinous abscess by Dr Pickard neurosurgery on 01/02/17 01/03/17 Give additional 0.5 mg dilaudid as patient with pain and tachycardic CV: Sinus tachycardia 2-D echocardiogram 05/29 revealed EF 55-60%. No regional wall motion abnormality. Currently normal saline at 84 cc an hour. Resp: Tobaccoism Nasal cannula to maintain saturations greater than or equal to 92% Incentive spirometry while awake As needed albuterol aerosols Chest x-ray 12/20 revealed no acute findings GI: Regular diet Pantoprazole 40 mg daily for GI prophylaxis Docusate sodium/senna 1 tablet twice daily for bowel regimen Follow-up liver function tests : History of suprapubic catheter Currently no acute issues Endo: Sliding-scale insulin if indicated to maintain euglycemia Renal: Acute kidney injury - resolved Monitor urine output Accurate I's and O's Currently on normal saline at 84 cc an hour Repeat labs in a.m. Heme: Microcytic anemia Check iron studies/ferritin. Patient with iron deficiency anemia. Start ferrous sulfate 325 mg by mouth twice a day. Peripheral smear Hemoccult stool Follow-up CBC in a.m. Severe protein calorie malnutrition, low BMI of 17.6, muscle waiting. 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 Consult psychodramatist. ID: Paravertebral abscess With MSSA and Ancef is started 12/26/16 per ID recommendations and vancomycin/ cefepime was DCd 12/20 - Blood cultures no growth. Wound culture with staph aureus. Infectious disease consultation appreciated with Dr. Cruz. Awaiting follow- up Mycobacterium abscesses cultures. S/P paravertebral abscess aspiration by IR on 12/22/16 with 2 cc of foul smelling red fluid. Cultures staph Aureus pansensitive. ID specialist also ff. Spoke with Dr Mike ID specialist. MRI back 12/27/16 per ID recommendations Back wound with large amount of pus, abx changed to Ancef per ID. Anticipate long course of IV abx PICC per ID MSK: PT evaluate and treat Severe Protein calorie malnutrition BMI of 78, low albumin of 1.7. He can repeat, muscle wasting. Bitemporal wasting. 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 Access - Utilize peripheral IV. Central line if indicated Prophylaxis - GI - pantoprazole - DVT - SCD/holding pharmacological prophylaxis in light of possible surgical intervention Discharge Planning Plan to DC to SNF. CM ff for DC plan as well. Patient will need wound care, PT, IV antibiotic Ancef per ID recommendations, and pain management at DC. To follow up as Op with PCP and consultants. Needs clearance by neurosurgery and ID to arrange abx at DC also. Patient however with MRI showing worsening discitis/osteomyelitis , reevaluation by neurosurgery for surgical intervention. Not cleared for DC yet. S/P surgical intervention per neurosurgery 01/02/17. Drain was removed per neurosurgery;. Patient on dilaudid for pain meds per surgery considering tapering down pain meds. Case management ff for DC plan, pending placement to SNF. Okay to discharge from ID specialist standpoint. Patrick Sheffield MD Jan 08, 2017 14:31
[2017-01-08 16:04] VITALS: BP 115/68; PULSE 117; RESP 20; TEMP 100; O2SAT 96
[2017-01-08] MEDS: IBUPROFEN 400 MG TAB PO PRN (18:38)
[2017-01-08] MEDS: AMITRIPTYLINE HCL 25 MG TAB PO SCH (21:12)
[2017-01-08 21:20] VITALS: BP 110/74; PULSE 115; RESP 16; TEMP 98.2; O2SAT 99
[2017-01-09] MEDS: HYDROmorphone HCL 4 MG TAB PO PRN ×5 (01:43→20:54)
[2017-01-09] MEDS: ceFAZolin 2 GM PREMIX 50 ML IV SCH ×4 (01:44→18:10)
[2017-01-09] MEDS: CHLORHEXIDINE GLUCONATE 2 % 1 PACK (2 CLOTHS) TOP SCH (01:44)
[2017-01-09] MEDS: oxyCODONE/ACETAMINOPHEN 10 MG/325 MG TAB PO PRN (02:47)
[2017-01-09] MEDS: METHOCARBAMOL 500 MG TAB PO SCH ×3 (06:30→20:54)
[2017-01-09] MEDS: INSULIN NovoLIN REGULAR SUPPLEMENTAL SCALE SQ SCH ×4 (06:47→20:54)
[2017-01-09] MEDS: SODIUM CHLORIDE 0.9% FLUSH 5 ML FLUSH IVF SCH ×2 (08:16→20:53)
[2017-01-09] MEDS: oxyCODONE HCL 40 MG CONTROLLED RELEASE TAB PO SCH ×2 (08:17→20:53)
[2017-01-09] MEDS: THIAMINE HCL 100 MG TAB PO SCH (08:17)
[2017-01-09] MEDS: PANTOPRAZOLE SOD 40 MG DELAYED RELEASE TAB PO SCH (08:17)
[2017-01-09] MEDS: FOLIC ACID 1 MG TAB PO SCH (08:17)
[2017-01-09] MEDS: DOCUSATE SODIUM 50 MG/SENNA 8.6 MG TAB PO SCH ×2 (08:17→20:53)
[2017-01-09] MEDS: MULTIVITAMIN TAB PO SCH (08:17)
[2017-01-09 08:32] VITALS: BP 91/60; PULSE 111; RESP 17; TEMP 99.9; O2SAT 98
[2017-01-09 11:49] VITALS: BP 93/56; PULSE 114; RESP 17; TEMP 99.1; O2SAT 95
[2017-01-09] MEDS: FERROUS SULFATE 325 MG (65 MG ELEMENTAL IRON) TAB PO SCH ×2 (11:55→18:10)
[2017-01-09] MEDS: IBUPROFEN 400 MG TAB PO PRN (11:56)
--- NOTE | 2017-01-09 12:53 | HHI.PR ---
Subjective Remarks This is a pleasant 41 y/o Male with IV drug abuse, multiple infections spinal [id number], recently had Thoracic osteomyelitis, with paraspinous abscess and underwent a T4-5 laminectomy, evacuation abscess, culture grew mycobacterium abscessus. yesterday Neurosurgery removed drain, 01/06: Stable in his bedroom, discussed with Infectious Disease specialist Doctor Anthony he is ready to go from her standpoint, not yet found placement by [facility], will try to set him for discharge tomorrow of next Jose Elias will need to start working on his Pain medicine at this time IV, complaint of generalized pain. No nausea, vomit or diarrhea. 01/07: Discussed with the patient in the room, in order to prepare him for discharge he will need to be off IV pain medicine will give him by Mouth Dilaudid as per Nurse Miss Matos she states last time he was here he crushed his Oral Narcotics and administered himself IV with Milk. 01/08: Seen in his bedroom, seen with nurse the patient was seen injecting IV medicines, security called and also will continue by mouth pain medicines crushed and in apple sauce. a this time continue awaiting for placement. 01/09: Stable in his bedroom, was refusing IV line, discussed with nurse Miss Thomas, no nausea, vomit or diarrhea. Objective Vital Signs Date Time Temp Pulse Resp B/P (MAP) Pulse Ox O2 Delivery O2 Flow Rate FiO2 01/09/17 11:49 99.1 114 17 93/56 (68) 95 01/09/17 08:32 99.9 111 17 91/60 (70) 98 01/08/17 21:20 98.2 115 16 110/74 (86) 99 01/08/17 16:04 100.0 117 20 115/68 (84) 96 I/O 01/08/17 01/08/17 01/08/17 01/09/17 01/09/17 01/09/17 07:00 15:00 23:00 07:00 15:00 23:00 Intake Total 770 ml 2050 ml 1900 ml 820 ml Output Total 1050 ml 1000 ml 1600 ml 400 ml Balance -280 ml 1050 ml 300 ml 420 ml Intake Oral 720 ml 2000 ml 1900 ml 820 ml IV Total 50 ml 50 ml Output Urine Total 1050 ml 1000 ml 1600 ml 400 ml # Bowel Movements 1 0 0 Result Diagram: 01/05/17 0735 01/05/17 0735 Imaging Last Impressions Thoracic Spine MRI 12/27/16 0000 Signed Impressions: Service Date/Time: Tuesday, December 27, 2016 12:44 - CONCLUSION: 1. When compared to the prior study there has been progression in the discitis/osteomyelitis with worsening osteomyelitis extending from T4-T7 and development of a new epidural abscess that extends into the paraspinal soft tissues posteriorly. The anterior paraspinal fluid collection is smaller from the prior study. Gopal Cates Jr., MD Chest CT 12/21/16 0000 Signed Impressions: Service Date/Time: December 11:52 - CONCLUSION: 1. Abnormal paraspinal fluid and soft tissue containing gas highly suspicious for a paraspinal abscess. This finding is similar distribution but decreased from the prior exam. It extends from approximately T3-T8. 2. There is an open wound on the midline back with contiguous subcutaneous air collection which extends to the area of prior laminectomy. There is a small amount of air within the spinal canal, likely in the epidural space. 3. Focal airspace consolidation in the right lower lobe with partial cavitation measuring approximately 2.3 x 1.1 cm. There was an area of consolidation on the prior examination and in identical location. However, it has decreased in size from the prior study. 4. Stable sclerosis and partial destruction of what is thought to be the T7 vertebral body. 5. Small bilateral pleural effusions. Roshan Galvez MD Abscess Drainage CT 12/21/16 0000 Signed Impressions: Service Date/Time: December 12:17 - CONCLUSION: Uncomplicated CT guided aspiration of the paraspinal fluid collection. I was only able to aspirate approximately 1-2 cc of reddish foul-smelling fluid. The sample was saved and sent to the lab for microbiological analysis. Roshan Galvez MD Chest X-Ray 12/20/16 0000 Signed Impressions: Service Date/Time: Tuesday, December 20, 2016 07:45 - CONCLUSION: Underinflation with atelectasis at the lung bases. Otherwise, no acute finding is appreciated. Roshan Galvez MD Procedures Thoracic paraspinous abscess s/p Thoracic wound debridement, evacuation paraspinous abscess by Dr Melly neurosurgery on 01/02/17 Other Results Laboratory Tests Test 12/20/16 10:00 12/20/16 13:00 12/20/16 13:14 12/21/16 03:29 Nasal Screen MRSA (PCR) MRSA NOT DETECTED Hematology Comments Fibrinogen 505 mg/dL Ammonia 30 MCMOL/L Total Creatine Kinase 39 U/L Troponin I LESS THAN 0.02 NG/ML Amylase Level 43 U/L Lipase 63 U/L Thyroid Stimulating Hormone 3rd Gen 2.040 uIU/ML Differential Total Cells Counted 100 Neutrophils % (Manual) 57 % Band Neutrophils % 10 % Lymphocytes % 20 % Monocytes % 12 % Eosinophils % 1 % Neutrophils # (Manual) 3.8 TH/MM3 Toxic Granulation 1+ Platelet Estimate HIGH Platelet Morphology Comment ENLARGED Blood Smear Pathologist Review Lactic Acid Level 0.7 mmol/L Blood Urea Nitrogen 18 MG/DL Creatinine 0.79 MG/DL Random Glucose 79 MG/DL Total Protein 7.4 GM/DL Albumin 1.7 GM/DL Calcium Level 8.1 MG/DL Phosphorus Level 3.3 MG/DL Magnesium Level 2.2 MG/DL Alkaline Phosphatase 86 U/L Aspartate Amino Transf (AST/SGOT) 13 U/L Alanine Aminotransferase (ALT/SGPT) 21 U/L Total Bilirubin 0.2 MG/DL Sodium Level 137 MEQ/L Potassium Level 4.1 MEQ/L Chloride Level 105 MEQ/L Carbon Dioxide Level 25.9 MEQ/L Test 12/21/16 14:30 12/23/16 04:50 12/27/16 14:21 01/02/17 05:50 Iron Level 56 MCG/DL Total Iron Binding Capacity 309 MCG/DL Percent Iron Saturation 18.1 % Ferritin 193 NG/ML Vancomycin Level Trough 21.1 MCG/ML Erythrocyte Sedimentation Rate 65 mm/hr HIV (1&2) Antibody NEGATIVE Prothrombin Time 10.7 SEC Prothromb Time International Ratio 1.0 RATIO Activated Partial Thromboplast Time 27.5 SEC Blood Urea Nitrogen 12 MG/DL Creatinine 0.74 MG/DL Random Glucose 92 MG/DL Calcium Level 8.8 MG/DL Magnesium Level 1.8 MG/DL Sodium Level 134 MEQ/L Potassium Level 4.2 MEQ/L Chloride Level 97 MEQ/L Carbon Dioxide Level 30.4 MEQ/L Test 01/05/17 07:35 White Blood Count 4.3 TH/MM3 Red Blood Count 4.22 MIL/MM3 Hemoglobin 10.0 GM/DL Hematocrit 30.3 % Mean Corpuscular Volume 71.8 FL Mean Corpuscular Hemoglobin 23.7 PG Mean Corpuscular Hemoglobin Concent 33.0 % Red Cell Distribution Width 22.1 % Platelet Count 373 TH/MM3 Mean Platelet Volume 7.4 FL Neutrophils (%) (Auto) 44.7 % Lymphocytes (%) (Auto) 36.9 % Monocytes (%) (Auto) 10.9 % Eosinophils (%) (Auto) 6.8 % Basophils (%) (Auto) 0.7 % Neutrophils # (Auto) 1.9 TH/MM3 Lymphocytes # (Auto) 1.6 TH/MM3 Monocytes # (Auto) 0.5 TH/MM3 Eosinophils # (Auto) 0.3 TH/MM3 Basophils # (Auto) 0.0 TH/MM3 CBC Comment DIFF FINAL Differential Comment Blood Urea Nitrogen 12 MG/DL Creatinine 0.62 MG/DL Random Glucose 96 MG/DL Calcium Level 8.6 MG/DL Sodium Level 137 MEQ/L Potassium Level 4.1 MEQ/L Chloride Level 100 MEQ/L Carbon Dioxide Level 29.9 MEQ/L Anion Gap 7 MEQ/L Estimat Glomerular Filtration Rate 142 ML/MIN Objective Remarks GENERAL: Well developed, in no acute distress resting in be. SKIN: Warm and dry. Multiple tattoos bilateral upper extremities, Surgical wound on back area, healing properly. CARDIOVASCULAR: Tachycardic, RR. S1, S2 no S4. Do not appreciate murmur RESPIRATORY: Clear to auscultation. Breath sounds equal bilaterally. GASTROINTESTINAL: Abdomen soft, non-tender, nondistended. Hepatic and splenic margins not palpable. MUSCULOSKELETAL: Extremities without significant peripheral edema. S/p surgery drain was removed, dressing c/d/i around T2/3 thoracic spine NEUROLOGICAL: Awake and alert. No obvious cranial nerve deficits. Medications and IVs Current Medications Medications (Trade) Dose Ordered Sig/Rony Route Start Time Stop Time Status Last Admin (Tylenol) 650 mg Q6H PRN PO 12/20/16 07:15 (Protonix) 40 mg DAILY PO 12/20/16 09:00 01/09/17 08:17 (Zofran Inj) 4 mg Q6H PRN IV PUSH 12/20/16 07:15 (Albuterol Neb) 2.5 mg Q2HR NEB PRN INH 12/20/16 07:15 Miscellaneous Information 1 Q361D XX 12/20/16 07:15 (Chlorhexidine 2% Cloth) 3 pack Taper DAILY@04 TOP 12/21/16 04:00 12/17/17 03:59 12/24/16 04:00 (Chlorhexidine 2% Cloth) 3 pack UNSCH PRN TOP 12/20/16 07:15 (Gerda-Colace) 1 tab BID PO 12/20/16 09:00 01/09/17 08:17 (Milk Of Magnesia Liq) 30 ml Q12H PRN PO 12/20/16 07:15 (Senokot) 17.2 mg Q12H PRN PO 12/20/16 07:15 (Dulcolax Supp) 10 mg DAILY PRN RECTAL 12/20/16 07:15 (Lactulose Liq) 30 ml DAILY PRN PO 12/20/16 07:15 (Elavil) 25 mg HS PO 12/20/16 21:00 01/08/17 21:12 (Robaxin) 500 mg Q8HR PO 12/20/16 14:00 01/09/17 06:30 (D50w (Vial) Inj) 50 ml UNSCH PRN IV PUSH 12/20/16 12:30 (Glucagon Inj) 1 mg UNSCH PRN OTHER 12/20/16 12:30 (NovoLIN R SUPPLEMENTAL SCALE) 1 ACHS SLIDING SCALE SQ 12/20/16 17:00 12/21/16 20:42 (Vitamin B1) 100 mg DAILY PO 12/21/16 09:00 01/09/17 08:17 (Folate) 1 mg DAILY PO 12/21/16 09:00 01/09/17 08:17 (Theragran) 1 tab DAILY PO 12/21/16 09:00 01/09/17 08:17 (OxyCONTIN CR) 40 mg Q12HR PO 12/21/16 21:00 01/09/17 08:17 (Percocet 10-325 Mg) 1 tab Q4H PRN PO 12/21/16 16:45 01/09/17 02:47 (Motrin) 400 mg Q8H PRN PO 12/22/16 19:00 01/09/17 11:56 (Ferrous Sulfate) 325 mg BID@ PO 12/24/16 12:00 01/09/17 11:55 Cefazolin Sodium/ Dextrose 50 ml @ 150 mls/hr Q8H IV 12/26/16 11:00 01/09/17 12:05 (NS Flush) 2 ml UNSCH PRN IVF 01/02/17 22:00 (NS Flush) 2 ml BID IVF 01/03/17 09:00 01/08/17 21:00 (Dilaudid) 4 mg Q4H PRN PO 01/07/17 16:30 01/09/17 11:08 A/P Assessment and Plan T5/6 through T7/8 discitis Thoracic paraspinous abscess Pathologic fractures T5, 6 and 7. 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 Acetaminophen for fever We'll place on OxyContin 20 milligrams by mouth twice a day for pain management. On percocet per pain sclae 1-5 , dilaudid for pain 6-10 and add dilaudid 0.5 for breakthrough pain . Consult palliative care for bass management. Previously OxyContin 40 mg twice a day with Dilaudid 4 mg every 4 hours when necessary breakthrough pain Currently on amitriptyline 25 mg a night for depression Thiamine, multivitamin and folate daily Neurosurgery/Dr. Pickard consulted, ff MRI repeat 12/27/16 reviewed findings discussed with Dr Cruz ID specialist. patient with progression of osteomyelitis /discitis. Neurosurgery reevaluated for surgical intervention. S/p surgical intervention by Dr Urbina 01/02/17 Thoracic paraspinous abscess s/p Thoracic wound debridement, evacuation paraspinous abscess by Dr Pickard neurosurgery on 01/02/17 01/03/17 Give additional 0.5 mg dilaudid as patient with pain and tachycardic CV: Sinus tachycardia 2-D echocardiogram 05/29 revealed EF 55-60%. No regional wall motion abnormality. Resp: Tobaccoism Nasal cannula to maintain saturations greater than or equal to 92% Incentive spirometry while awake As needed albuterol aerosols Chest x-ray 12/20 revealed no acute findings GI: Regular diet Pantoprazole 40 mg daily for GI prophylaxis Docusate sodium/senna 1 tablet twice daily for bowel regimen Microcytic anemia Check iron studies/ferritin. Patient with iron deficiency anemia. Start ferrous sulfate 325 mg by mouth twice a day. Peripheral smear Severe protein calorie malnutrition, low BMI of 17.6, muscle waiting. bitemporal waisting, weak hand compressed gas tester. 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 Consult counterperson. Paravertebral abscess, chronic vertebral Osteomyelitis, recurring epidural abscess, M. Abscess MSSA With MSSA and Ancef is started 12/26/16 per ID recommendations and vancomycin/ cefepime was DCd Pathologic Fracture T5,T6 and 7, Discitis from T5-6 and 7, Prevertebral abscess from T4 through T10 9.5 cm craniocaudal status post drainage, Mycobacterium abscesses cultures. Large Epidural Phlegmon causing spinal stenosis, Status post CT guided drainage, ID specialist following recommended to continue Cefazoline for 12 weeks, and follow in antibiotic clinic. okay to Discharge from ID standpoint. PT evaluate and treat Severe Protein calorie malnutrition BMI of 78, low albumin of 1.7. He can repeat, muscle wasting. Bitemporal wasting. 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 Access - Utilize peripheral IV. Central line if indicated Prophylaxis - GI - pantoprazole - DVT - SCD/holding pharmacological prophylaxis in light of possible surgical intervention Discharge Planning Plan to DC to SNF. CM ff for DC plan as well. Patient will need wound care, PT, IV antibiotic Ancef per ID recommendations, and pain management at DC. To follow up as Op with PCP and consultants. Needs clearance by neurosurgery and ID to arrange abx at DC also. Patient however with MRI showing worsening discitis/osteomyelitis , reevaluation by neurosurgery for surgical intervention. Not cleared for DC yet. S/P surgical intervention per neurosurgery 01/02/17. Drain was removed per neurosurgery;. Patient on dilaudid for pain meds per surgery considering tapering down pain meds. Case management ff for DC plan, pending placement to SNF. Okay to discharge from ID specialist standpoint. Patrick Sheffield MD Jan 09, 2017 12:53
[2017-01-09 16:42] VITALS: BP 99/67; PULSE 106; RESP 16; TEMP 98.6; O2SAT 96
[2017-01-09 20:20] VITALS: BP 101/70; PULSE 104; RESP 16; TEMP 98.3; O2SAT 100
[2017-01-09] MEDS: AMITRIPTYLINE HCL 25 MG TAB PO SCH (20:54)
[2017-01-10] MEDS: HYDROmorphone HCL 4 MG TAB PO PRN ×6 (01:22→20:38)
[2017-01-10] MEDS: ceFAZolin 2 GM PREMIX 50 ML IV SCH ×3 (02:01→18:10)
[2017-01-10] MEDS: oxyCODONE/ACETAMINOPHEN 10 MG/325 MG TAB PO PRN ×4 (03:13→19:43)
[2017-01-10] MEDS: CHLORHEXIDINE GLUCONATE 2 % 1 PACK (2 CLOTHS) TOP SCH (03:34)
[2017-01-10] MEDS: METHOCARBAMOL 500 MG TAB PO SCH ×3 (05:35→22:57)
[2017-01-10] MEDS: INSULIN NovoLIN REGULAR SUPPLEMENTAL SCALE SQ SCH ×4 (08:00→20:42)
[2017-01-10 08:56] VITALS: BP 105/67; PULSE 105; RESP 16; TEMP 99.3; O2SAT 95
[2017-01-10] MEDS: SODIUM CHLORIDE 0.9% FLUSH 5 ML FLUSH IVF SCH ×2 (09:00→19:34)
[2017-01-10] MEDS: THIAMINE HCL 100 MG TAB PO SCH (09:26)
[2017-01-10] MEDS: DOCUSATE SODIUM 50 MG/SENNA 8.6 MG TAB PO SCH ×2 (09:26→20:37)
[2017-01-10] MEDS: MULTIVITAMIN TAB PO SCH (09:26)
[2017-01-10] MEDS: PANTOPRAZOLE SOD 40 MG DELAYED RELEASE TAB PO SCH (09:26)
[2017-01-10] MEDS: FOLIC ACID 1 MG TAB PO SCH (09:26)
[2017-01-10] MEDS: oxyCODONE HCL 40 MG CONTROLLED RELEASE TAB PO SCH ×2 (09:27→20:38)
[2017-01-10] MEDS: FERROUS SULFATE 325 MG (65 MG ELEMENTAL IRON) TAB PO SCH ×2 (11:15→16:39)
[2017-01-10 12:01] VITALS: BP 92/61; PULSE 105; RESP 16; TEMP 99.6; O2SAT 96
--- NOTE | 2017-01-10 14:49 | RADRPT ---
EXAM DATE/TIME: 01/10/2017 14:32 [facility] COMPARISON: No previous studies available for comparison. INDICATIONS : Right lateral side hip pain with no known injury. MEDICAL HISTORY : None. SURGICAL HISTORY : Hip surgery ENCOUNTER: Initial ACUITY: 4 - 6 days PAIN SCORE: 7/10 LOCATION: Right Hip FINDINGS: Trochanteric nail and intramedullary luis in good position. Fracture or hardware failure not apprecia nabeel. CONCLUSION: Negative for source of pain. Jose Meier MD FACR on January 10, 2017 at 14:46 Board Certified Radiologist. This report was verified electronically.
--- NOTE | 2017-01-10 16:13 | HHI.PR ---
Subjective Remarks This is a pleasant 41 y/o Male with IV drug abuse, multiple infections spinal [id number], recently had Thoracic osteomyelitis, with paraspinous abscess and underwent a T4-5 laminectomy, evacuation abscess, culture grew mycobacterium abscessus. yesterday Neurosurgery removed drain, 01/06: Stable in his bedroom, discussed with Infectious Disease specialist Doctor Anthony he is ready to go from her standpoint, not yet found placement by [facility] [employer], will try to set him for discharge tomorrow of next Jose Elias will need to start working on his Pain medicine at this time IV, complaint of generalized pain. No nausea, vomit or diarrhea. 01/07: Discussed with the patient in the room, in order to prepare him for discharge he will need to be off IV pain medicine will give him by Mouth Dilaudid as per Nurse Miss Matos she states last time he was here he crushed his Oral Narcotics and administered himself IV with Milk. 01/08: Seen in his bedroom, seen with nurse the patient was seen injecting IV medicines, security called and also will continue by mouth pain medicines crushed and in apple sauce. a this time continue awaiting for placement. 01/09: Stable in his bedroom, was refusing IV line, discussed with nurse Miss Thomas. 01/10: Patient in his bedroom, stable no complaint, no nausea, vomit or diarrhea , nurse Miss Pedroza Objective Vital Signs Date Time Temp Pulse Resp B/P (MAP) Pulse Ox O2 Delivery O2 Flow Rate FiO2 01/10/17 12:01 99.6 105 16 92/61 (71) 96 01/10/17 08:56 99.3 105 16 105/67 (80) 95 01/09/17 20:20 98.3 104 16 101/70 (80) 100 01/09/17 16:42 98.6 106 16 99/67 (78) 96 I/O 01/09/17 01/09/17 01/09/17 01/10/17 01/10/17 01/10/17 07:00 15:00 23:00 07:00 15:00 23:00 Intake Total 1900 ml 870 ml 50 ml 3150 ml 50 ml Output Total 1600 ml 400 ml 2300 ml Balance 300 ml 470 ml 50 ml 850 ml 50 ml Intake Oral 1900 ml 820 ml 3000 ml IV Total 50 ml 50 ml 150 ml 50 ml Output Urine Total 1600 ml 400 ml 2300 ml # Bowel Movements 0 0 Imaging Last Impressions Hip and Pelvis X-Ray 01/10/17 0000 Signed Impressions: Service Date/Time: Tuesday, January 10, 2017 14:32 - CONCLUSION: Negative for source of pain. Jose Meier MD FACR Thoracic Spine MRI 12/27/16 0000 Signed Impressions: Service Date/Time: Tuesday, December 27, 2016 12:44 - CONCLUSION: 1. When compared to the prior study there has been progression in the discitis/osteomyelitis with worsening osteomyelitis extending from T4-T7 and development of a new epidural abscess that extends into the paraspinal soft tissues posteriorly. The anterior paraspinal fluid collection is smaller from the prior study. Gopal Cates Jr., MD Chest CT 12/21/16 0000 Signed Impressions: Service Date/Time: December 11:52 - CONCLUSION: 1. Abnormal paraspinal fluid and soft tissue containing gas highly suspicious for a paraspinal abscess. This finding is similar distribution but decreased from the prior exam. It extends from approximately T3-T8. 2. There is an open wound on the midline back with contiguous subcutaneous air collection which extends to the area of prior laminectomy. There is a small amount of air within the spinal canal, likely in the epidural space. 3. Focal airspace consolidation in the right lower lobe with partial cavitation measuring approximately 2.3 x 1.1 cm. There was an area of consolidation on the prior examination and in identical location. However, it has decreased in size from the prior study. 4. Stable sclerosis and partial destruction of what is thought to be the T7 vertebral body. 5. Small bilateral pleural effusions. Roshan Galvez MD Abscess Drainage CT 12/21/16 0000 Signed Impressions: Service Date/Time: December 12:17 - CONCLUSION: Uncomplicated CT guided aspiration of the paraspinal fluid collection. I was only able to aspirate approximately 1-2 cc of reddish foul-smelling fluid. The sample was saved and sent to the lab for microbiological analysis. Roshan Galvez MD Chest X-Ray 12/20/16 0000 Signed Impressions: Service Date/Time: Tuesday, December 20, 2016 07:45 - CONCLUSION: Underinflation with atelectasis at the lung bases. Otherwise, no acute finding is appreciated. Roshan Galvez MD Procedures Thoracic paraspinous abscess s/p Thoracic wound debridement, evacuation paraspinous abscess by Dr Pickard neurosurgery on 01/02/17 Other Results Laboratory Tests Test 12/20/16 10:00 12/20/16 13:00 12/20/16 13:14 12/21/16 03:29 Nasal Screen MRSA (PCR) MRSA NOT DETECTED Hematology Comments Fibrinogen 505 mg/dL Ammonia 30 MCMOL/L Total Creatine Kinase 39 U/L Troponin I LESS THAN 0.02 NG/ML Amylase Level 43 U/L Lipase 63 U/L Thyroid Stimulating Hormone 3rd Gen 2.040 uIU/ML Differential Total Cells Counted 100 Neutrophils % (Manual) 57 % Band Neutrophils % 10 % Lymphocytes % 20 % Monocytes % 12 % Eosinophils % 1 % Neutrophils # (Manual) 3.8 TH/MM3 Toxic Granulation 1+ Platelet Estimate HIGH Platelet Morphology Comment ENLARGED Blood Smear Pathologist Review Lactic Acid Level 0.7 mmol/L Blood Urea Nitrogen 18 MG/DL Creatinine 0.79 MG/DL Random Glucose 79 MG/DL Total Protein 7.4 GM/DL Albumin 1.7 GM/DL Calcium Level 8.1 MG/DL Phosphorus Level 3.3 MG/DL Magnesium Level 2.2 MG/DL Alkaline Phosphatase 86 U/L Aspartate Amino Transf (AST/SGOT) 13 U/L Alanine Aminotransferase (ALT/SGPT) 21 U/L Total Bilirubin 0.2 MG/DL Sodium Level 137 MEQ/L Potassium Level 4.1 MEQ/L Chloride Level 105 MEQ/L Carbon Dioxide Level 25.9 MEQ/L Test 12/21/16 14:30 12/23/16 04:50 12/27/16 14:21 01/02/17 05:50 Iron Level 56 MCG/DL Total Iron Binding Capacity 309 MCG/DL Percent Iron Saturation 18.1 % Ferritin 193 NG/ML Vancomycin Level Trough 21.1 MCG/ML Erythrocyte Sedimentation Rate 65 mm/hr HIV (1&2) Antibody NEGATIVE Prothrombin Time 10.7 SEC Prothromb Time International Ratio 1.0 RATIO Activated Partial Thromboplast Time 27.5 SEC Blood Urea Nitrogen 12 MG/DL Creatinine 0.74 MG/DL Random Glucose 92 MG/DL Calcium Level 8.8 MG/DL Magnesium Level 1.8 MG/DL Sodium Level 134 MEQ/L Potassium Level 4.2 MEQ/L Chloride Level 97 MEQ/L Carbon Dioxide Level 30.4 MEQ/L Test 01/05/17 07:35 White Blood Count 4.3 TH/MM3 Red Blood Count 4.22 MIL/MM3 Hemoglobin 10.0 GM/DL Hematocrit 30.3 % Mean Corpuscular Volume 71.8 FL Mean Corpuscular Hemoglobin 23.7 PG Mean Corpuscular Hemoglobin Concent 33.0 % Red Cell Distribution Width 22.1 % Platelet Count 373 TH/MM3 Mean Platelet Volume 7.4 FL Neutrophils (%) (Auto) 44.7 % Lymphocytes (%) (Auto) 36.9 % Monocytes (%) (Auto) 10.9 % Eosinophils (%) (Auto) 6.8 % Basophils (%) (Auto) 0.7 % Neutrophils # (Auto) 1.9 TH/MM3 Lymphocytes # (Auto) 1.6 TH/MM3 Monocytes # (Auto) 0.5 TH/MM3 Eosinophils # (Auto) 0.3 TH/MM3 Basophils # (Auto) 0.0 TH/MM3 CBC Comment DIFF FINAL Differential Comment Blood Urea Nitrogen 12 MG/DL Creatinine 0.62 MG/DL Random Glucose 96 MG/DL Calcium Level 8.6 MG/DL Sodium Level 137 MEQ/L Potassium Level 4.1 MEQ/L Chloride Level 100 MEQ/L Carbon Dioxide Level 29.9 MEQ/L Anion Gap 7 MEQ/L Estimat Glomerular Filtration Rate 142 ML/MIN Objective Remarks GENERAL: Well developed, in no acute distress resting in be. SKIN: Warm and dry. Multiple tattoos bilateral upper extremities, Surgical wound on back area, healing properly. CARDIOVASCULAR: Tachycardic, RR. S1, S2 no S4. Do not appreciate murmur RESPIRATORY: Clear to auscultation. Breath sounds equal bilaterally. GASTROINTESTINAL: Abdomen soft, non-tender, nondistended. Hepatic and splenic margins not palpable. MUSCULOSKELETAL: Extremities without significant peripheral edema. S/p surgery drain was removed, dressing c/d/i around T2/3 thoracic spine NEUROLOGICAL: Awake and alert. No obvious cranial nerve deficits. Medications and IVs Current Medications Medications (Trade) Dose Ordered Sig/Rony Route Start Time Stop Time Status Last Admin (Tylenol) 650 mg Q6H PRN PO 12/20/16 07:15 (Protonix) 40 mg DAILY PO 12/20/16 09:00 01/10/17 09:26 (Zofran Inj) 4 mg Q6H PRN IV PUSH 12/20/16 07:15 (Albuterol Neb) 2.5 mg Q2HR NEB PRN INH 12/20/16 07:15 Miscellaneous Information 1 Q361D XX 12/20/16 07:15 (Chlorhexidine 2% Cloth) 3 pack Taper DAILY@04 TOP 12/21/16 04:00 12/17/17 03:59 12/24/16 04:00 (Chlorhexidine 2% Cloth) 3 pack UNSCH PRN TOP 12/20/16 07:15 (Gerda-Colace) 1 tab BID PO 12/20/16 09:00 01/10/17 09:26 (Milk Of Magnesia Liq) 30 ml Q12H PRN PO 12/20/16 07:15 (Senokot) 17.2 mg Q12H PRN PO 12/20/16 07:15 (Dulcolax Supp) 10 mg DAILY PRN RECTAL 12/20/16 07:15 (Lactulose Liq) 30 ml DAILY PRN PO 12/20/16 07:15 (Elavil) 25 mg HS PO 12/20/16 21:00 01/09/17 20:54 (Robaxin) 500 mg Q8HR PO 12/20/16 14:00 01/10/17 12:56 (D50w (Vial) Inj) 50 ml UNSCH PRN IV PUSH 12/20/16 12:30 (Glucagon Inj) 1 mg UNSCH PRN OTHER 12/20/16 12:30 (NovoLIN R SUPPLEMENTAL SCALE) 1 ACHS SLIDING SCALE SQ 12/20/16 17:00 12/21/16 20:42 (Vitamin B1) 100 mg DAILY PO 12/21/16 09:00 01/10/17 09:26 (Folate) 1 mg DAILY PO 12/21/16 09:00 01/10/17 09:26 (Theragran) 1 tab DAILY PO 12/21/16 09:00 01/10/17 09:26 (OxyCONTIN CR) 40 mg Q12HR PO 12/21/16 21:00 01/10/17 09:27 (Percocet 10-325 Mg) 1 tab Q4H PRN PO 12/21/16 16:45 01/10/17 15:12 (Motrin) 400 mg Q8H PRN PO 12/22/16 19:00 01/09/17 11:56 (Ferrous Sulfate) 325 mg BID@12,17 PO 12/24/16 12:00 01/09/17 18:10 Cefazolin Sodium/ Dextrose 50 ml @ 150 mls/hr Q8H IV 12/26/16 11:00 01/10/17 11:10 (NS Flush) 2 ml UNSCH PRN IVF 01/02/17 22:00 (NS Flush) 2 ml BID IVF 01/03/17 09:00 01/10/17 09:00 (Dilaudid) 4 mg Q4H PRN PO 01/07/17 16:30 01/10/17 12:56 A/P Assessment and Plan T5/6 through T7/8 discitis Thoracic paraspinous abscess Pathologic fractures T5, 6 and 7. 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 Acetaminophen for fever We'll place on OxyContin 20 milligrams by mouth twice a day for pain management. On percocet per pain sclae 1-5 , dilaudid for pain 6-10 and add dilaudid 0.5 for breakthrough pain . Consult palliative care for bass management. Previously OxyContin 40 mg twice a day with Dilaudid 4 mg every 4 hours when necessary breakthrough pain Currently on amitriptyline 25 mg a night for depression Thiamine, multivitamin and folate daily Neurosurgery/Dr. Pickard consulted, ff MRI repeat 12/27/16 reviewed findings discussed with Dr Cruz ID specialist. patient with progression of osteomyelitis /discitis. Neurosurgery reevaluated for surgical intervention. S/p surgical intervention by Dr Urbina 01/02/17 Thoracic paraspinous abscess s/p Thoracic wound debridement, evacuation paraspinous abscess by Dr Pickard neurosurgery on 01/02/17 01/03/17 Give additional 0.5 mg dilaudid as patient with pain and tachycardic CV: Sinus tachycardia 2-D echocardiogram 05/29 revealed EF 55-60%. No regional wall motion abnormality. Resp: Tobaccoism Nasal cannula to maintain saturations greater than or equal to 92% Incentive spirometry while awake As needed albuterol aerosols Chest x-ray 12/20 revealed no acute findings GI: Regular diet Pantoprazole 40 mg daily for GI prophylaxis Docusate sodium/senna 1 tablet twice daily for bowel regimen Microcytic anemia Check iron studies/ferritin. Patient with iron deficiency anemia. Start ferrous sulfate 325 mg by mouth twice a day. Peripheral smear Severe protein calorie malnutrition, low BMI of 17.6, muscle waiting. 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 Paravertebral abscess, chronic vertebral Osteomyelitis, recurring epidural abscess, M. Abscess MSSA With MSSA and Ancef is started 12/26/16 per ID recommendations and vancomycin/ cefepime was DCd Pathologic Fracture T5,T6 and 7, Discitis from T5-6 and 7, Prevertebral abscess from T4 through T10 9.5 cm craniocaudal status post drainage, Mycobacterium abscesses cultures. Large Epidural Phlegmon causing spinal stenosis, Status post CT guided drainage, ID specialist following recommended to continue Cefazoline for 12 weeks, and follow in antibiotic clinic. okay to Discharge from ID standpoint. PT evaluate and treat Severe Protein calorie malnutrition BMI of 78, low albumin of 1.7. He can repeat, muscle wasting. Bitemporal wasting. 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 Access - Utilize peripheral IV. Central line if indicated Prophylaxis - GI - pantoprazole - DVT - SCD/holding pharmacological prophylaxis in light of possible surgical intervention Discharge Planning Plan to DC to SNF. CM ff for DC plan as well. Patient will need wound care, PT, IV antibiotic Ancef per ID recommendations, and pain management at DC. To follow up as Op with PCP and consultants. Needs clearance by neurosurgery and ID to arrange abx at DC also. Patient however with MRI showing worsening discitis/osteomyelitis , reevaluation by neurosurgery for surgical intervention. Not cleared for DC yet. S/P surgical intervention per neurosurgery 01/02/17. Drain was removed per neurosurgery;. Patient on dilaudid for pain meds per surgery considering tapering down pain meds. Case management ff for DC plan, pending placement to SNF. Okay to discharge from ID specialist standpoint. Patrick Sheffield MD Jan 10, 2017 16:13
[2017-01-10 16:37] VITALS: BP 121/82; PULSE 106; RESP 16; TEMP 98.9; O2SAT 94
[2017-01-10 20:00] VITALS: BP_SYST 115; BP_SYST 118; BP_DIAS 82; PULSE 108; RESP 18; TEMP 98.2; O2SAT 100
[2017-01-10] MEDS: AMITRIPTYLINE HCL 25 MG TAB PO SCH (20:37)
--- NOTE | 2017-01-10 23:37 | HHI.NSPN ---
History Chief Complaint: Back and right hip pain Exam Results Vital Signs Date Time Temp Pulse Resp B/P (MAP) Pulse Ox O2 Delivery O2 Flow Rate FiO2 01/10/17 20:00 98.2 108 18 115/82 (93) 100 Intake and Output 01/10/17 01/10/17 01/11/17 08:00 16:00 00:00 Intake Total 3150 ml 50 ml 920 ml Output Total 2300 ml 1300 ml Balance 850 ml 50 ml -380 ml Physical Examination GENERAL: Thin male who appears mildy uncomfortable, affect flat, no distress noted. SKIN: Intact dressings to thoracic surgical incision & JANA drain insertion site, no erythema or streaking. NECK: Midline cervical spine minimally TTP, no JVD, trachea midline. MUSCULOSKELETAL: JENKINS w/o difficulty. Right hip TTP posteriorly & laterally. Upper thoracic spine TTP and remainder of thoracolumbar spine minimally TTP. NEUROLOGICAL: AAOx3. Speech clear & appropriate. Follows simple commands w/o difficulty. Sensation intact to light touch to all extremities. Motor strength is 5/5 to all major flexion & extension muscle groups Medical Decision Making Impression and Plan Stable neuro exam thoracic discitis - paraspinous abscess ID Following Right hip pain 03/12/16 Xray negative per report Jeffry Pickard MD Jan 10, 2017 23:37
[2017-01-11] MEDS: HYDROmorphone HCL 4 MG TAB PO PRN ×6 (00:28→21:20)
[2017-01-11 00:35] VITALS: BP 111/75; PULSE 106; RESP 16; TEMP 98; O2SAT 96
[2017-01-11 04:00] VITALS: BP 95/67; PULSE 91; RESP 20; TEMP 98.5; O2SAT 95
[2017-01-11] MEDS: CHLORHEXIDINE GLUCONATE 2 % 1 PACK (2 CLOTHS) TOP SCH (04:00)
[2017-01-11] MEDS: oxyCODONE/ACETAMINOPHEN 10 MG/325 MG TAB PO PRN ×5 (04:11→21:20)
[2017-01-11] MEDS: ceFAZolin 2 GM PREMIX 50 ML IV SCH ×4 (04:11→17:54)
[2017-01-11] MEDS: METHOCARBAMOL 500 MG TAB PO SCH ×3 (05:46→21:21)
[2017-01-11 08:00] VITALS: BP 119/69; PULSE 102; RESP 20; TEMP 98.4; O2SAT 96
[2017-01-11] MEDS: INSULIN NovoLIN REGULAR SUPPLEMENTAL SCALE SQ SCH ×4 (08:00→21:00)
[2017-01-11] MEDS: MULTIVITAMIN TAB PO SCH (08:40)
[2017-01-11] MEDS: PANTOPRAZOLE SOD 40 MG DELAYED RELEASE TAB PO SCH (08:40)
[2017-01-11] MEDS: DOCUSATE SODIUM 50 MG/SENNA 8.6 MG TAB PO SCH ×2 (08:40→21:19)
[2017-01-11] MEDS: FOLIC ACID 1 MG TAB PO SCH (08:41)
[2017-01-11] MEDS: SODIUM CHLORIDE 0.9% FLUSH 5 ML FLUSH IVF SCH ×2 (09:00→21:00)
--- NOTE | 2017-01-11 09:06 | HHI.PR ---
Subjective Remarks This is a pleasant 41 y/o Male with IV drug abuse, multiple infections spinal [id number], recently had Thoracic osteomyelitis, with paraspinous abscess and underwent a T4-5 laminectomy, evacuation abscess, culture grew mycobacterium abscessus. yesterday Neurosurgery removed drain, 01/06: Stable in his bedroom, discussed with Infectious Disease specialist Doctor Anthony he is ready to go from her standpoint, not yet found placement by Deputy Editor In Chief, will try to set him for discharge tomorrow of next Jose Elias will need to start working on his Pain medicine at this time IV, complaint of generalized pain. No nausea, vomit or diarrhea. 01/07: Discussed with the patient in the room, in order to prepare him for discharge he will need to be off IV pain medicine will give him by Mouth Dilaudid as per Nurse Miss Matos she states last time he was here he crushed his Oral Narcotics and administered himself IV with Milk. 01/08: Seen in his bedroom, seen with nurse the patient was seen injecting IV medicines, security called and also will continue by mouth pain medicines crushed and in apple sauce. a this time continue awaiting for placement. 01/09: Stable in his bedroom, was refusing IV line, discussed with nurse Miss Thomas. 01/10: Patient in his bedroom, stable no complaint, nurse Miss Pedroza 01/11: Discussed the patient in clinical rounds, not yet found placement for him , stable no nausea, vomit or diarrhea, already discharged as per ID specialist Doctor Anthony. Objective Vital Signs Date Time Temp Pulse Resp B/P (MAP) Pulse Ox O2 Delivery O2 Flow Rate FiO2 01/11/17 08:00 98.4 102 20 119/69 (86) 96 01/11/17 04:00 98.5 91 20 95/67 (76) 95 01/11/17 00:35 98.0 106 16 111/75 (87) 96 01/10/17 20:00 98.2 108 18 115/82 (93) 100 01/10/17 16:37 98.9 106 16 121/82 (95) 94 01/10/17 12:01 99.6 105 16 92/61 (71) 96 I/O 01/10/17 01/10/17 01/10/17 01/11/17 01/11/17 01/11/17 07:00 15:00 23:00 07:00 15:00 23:00 Intake Total 3150 ml 50 ml 920 ml Output Total 2300 ml 1300 ml 1300 ml Balance 850 ml 50 ml -380 ml -1300 ml Intake Oral 3000 ml 820 ml IV Total 150 ml 50 ml 100 ml Output Urine Total 2300 ml 1300 ml 1300 ml # Bowel Movements 0 Imaging Last Impressions Hip and Pelvis X-Ray 01/10/17 0000 Signed Impressions: Service Date/Time: Tuesday, January 10, 2017 14:32 - CONCLUSION: Negative for source of pain. Jose Meier MD FACR Thoracic Spine MRI 12/27/16 0000 Signed Impressions: Service Date/Time: Tuesday, December 27, 2016 12:44 - CONCLUSION: 1. When compared to the prior study there has been progression in the discitis/osteomyelitis with worsening osteomyelitis extending from T4-T7 and development of a new epidural abscess that extends into the paraspinal soft tissues posteriorly. The anterior paraspinal fluid collection is smaller from the prior study. Gopal Cates Jr., MD Chest CT 12/21/16 0000 Signed Impressions: Service Date/Time: December 11:52 - CONCLUSION: 1. Abnormal paraspinal fluid and soft tissue containing gas highly suspicious for a paraspinal abscess. This finding is similar distribution but decreased from the prior exam. It extends from approximately T3-T8. 2. There is an open wound on the midline back with contiguous subcutaneous air collection which extends to the area of prior laminectomy. There is a small amount of air within the spinal canal, likely in the epidural space. 3. Focal airspace consolidation in the right lower lobe with partial cavitation measuring approximately 2.3 x 1.1 cm. There was an area of consolidation on the prior examination and in identical location. However, it has decreased in size from the prior study. 4. Stable sclerosis and partial destruction of what is thought to be the T7 vertebral body. 5. Small bilateral pleural effusions. Roshan Galvez MD Abscess Drainage CT 12/21/16 0000 Signed Impressions: Service Date/Time: December 12:17 - CONCLUSION: Uncomplicated CT guided aspiration of the paraspinal fluid collection. I was only able to aspirate approximately 1-2 cc of reddish foul-smelling fluid. The sample was saved and sent to the lab for microbiological analysis. Roshan Galvez MD Chest X-Ray 12/20/16 0000 Signed Impressions: Service Date/Time: Tuesday, December 20, 2016 07:45 - CONCLUSION: Underinflation with atelectasis at the lung bases. Otherwise, no acute finding is appreciated. Roshan Galvez MD Procedures Thoracic paraspinous abscess s/p Thoracic wound debridement, evacuation paraspinous abscess by Dr Pickard neurosurgery on 01/02/17 Other Results Laboratory Tests Test 12/20/16 10:00 12/20/16 13:00 12/20/16 13:14 12/21/16 03:29 Nasal Screen MRSA (PCR) MRSA NOT DETECTED Hematology Comments Fibrinogen 505 mg/dL Ammonia 30 MCMOL/L Total Creatine Kinase 39 U/L Troponin I LESS THAN 0.02 NG/ML Amylase Level 43 U/L Lipase 63 U/L Thyroid Stimulating Hormone 3rd Gen 2.040 uIU/ML Differential Total Cells Counted 100 Neutrophils % (Manual) 57 % Band Neutrophils % 10 % Lymphocytes % 20 % Monocytes % 12 % Eosinophils % 1 % Neutrophils # (Manual) 3.8 TH/MM3 Toxic Granulation 1+ Platelet Estimate HIGH Platelet Morphology Comment ENLARGED Blood Smear Pathologist Review Lactic Acid Level 0.7 mmol/L Blood Urea Nitrogen 18 MG/DL Creatinine 0.79 MG/DL Random Glucose 79 MG/DL Total Protein 7.4 GM/DL Albumin 1.7 GM/DL Calcium Level 8.1 MG/DL Phosphorus Level 3.3 MG/DL Magnesium Level 2.2 MG/DL Alkaline Phosphatase 86 U/L Aspartate Amino Transf (AST/SGOT) 13 U/L Alanine Aminotransferase (ALT/SGPT) 21 U/L Total Bilirubin 0.2 MG/DL Sodium Level 137 MEQ/L Potassium Level 4.1 MEQ/L Chloride Level 105 MEQ/L Carbon Dioxide Level 25.9 MEQ/L Test 12/21/16 14:30 12/23/16 04:50 12/27/16 14:21 01/02/17 05:50 Iron Level 56 MCG/DL Total Iron Binding Capacity 309 MCG/DL Percent Iron Saturation 18.1 % Ferritin 193 NG/ML Vancomycin Level Trough 21.1 MCG/ML Erythrocyte Sedimentation Rate 65 mm/hr HIV (1&2) Antibody NEGATIVE Prothrombin Time 10.7 SEC Prothromb Time International Ratio 1.0 RATIO Activated Partial Thromboplast Time 27.5 SEC Blood Urea Nitrogen 12 MG/DL Creatinine 0.74 MG/DL Random Glucose 92 MG/DL Calcium Level 8.8 MG/DL Magnesium Level 1.8 MG/DL Sodium Level 134 MEQ/L Potassium Level 4.2 MEQ/L Chloride Level 97 MEQ/L Carbon Dioxide Level 30.4 MEQ/L Test 01/05/17 07:35 White Blood Count 4.3 TH/MM3 Red Blood Count 4.22 MIL/MM3 Hemoglobin 10.0 GM/DL Hematocrit 30.3 % Mean Corpuscular Volume 71.8 FL Mean Corpuscular Hemoglobin 23.7 PG Mean Corpuscular Hemoglobin Concent 33.0 % Red Cell Distribution Width 22.1 % Platelet Count 373 TH/MM3 Mean Platelet Volume 7.4 FL Neutrophils (%) (Auto) 44.7 % Lymphocytes (%) (Auto) 36.9 % Monocytes (%) (Auto) 10.9 % Eosinophils (%) (Auto) 6.8 % Basophils (%) (Auto) 0.7 % Neutrophils # (Auto) 1.9 TH/MM3 Lymphocytes # (Auto) 1.6 TH/MM3 Monocytes # (Auto) 0.5 TH/MM3 Eosinophils # (Auto) 0.3 TH/MM3 Basophils # (Auto) 0.0 TH/MM3 CBC Comment DIFF FINAL Differential Comment Blood Urea Nitrogen 12 MG/DL Creatinine 0.62 MG/DL Random Glucose 96 MG/DL Calcium Level 8.6 MG/DL Sodium Level 137 MEQ/L Potassium Level 4.1 MEQ/L Chloride Level 100 MEQ/L Carbon Dioxide Level 29.9 MEQ/L Anion Gap 7 MEQ/L Estimat Glomerular Filtration Rate 142 ML/MIN Objective Remarks GENERAL: Well developed, in no acute distress resting in be. SKIN: Warm and dry. Multiple tattoos bilateral upper extremities, Surgical wound on back area, healing properly. CARDIOVASCULAR: Tachycardic, RR. S1, S2 no S4. Do not appreciate murmur RESPIRATORY: Clear to auscultation. Breath sounds equal bilaterally. GASTROINTESTINAL: Abdomen soft, non-tender, nondistended. Hepatic and splenic margins not palpable. MUSCULOSKELETAL: Extremities without significant peripheral edema. S/p surgery drain was removed, dressing c/d/i around T2/3 thoracic spine NEUROLOGICAL: Awake and alert. No obvious cranial nerve deficits. Medications and IVs Current Medications Medications (Trade) Dose Ordered Sig/Rony Route Start Time Stop Time Status Last Admin (Tylenol) 650 mg Q6H PRN PO 12/20/16 07:15 (Protonix) 40 mg DAILY PO 12/20/16 09:00 01/11/17 08:40 (Zofran Inj) 4 mg Q6H PRN IV PUSH 12/20/16 07:15 (Albuterol Neb) 2.5 mg Q2HR NEB PRN INH 12/20/16 07:15 Miscellaneous Information 1 Q361D XX 12/20/16 07:15 (Chlorhexidine 2% Cloth) 3 pack Taper DAILY@04 TOP 12/21/16 04:00 12/17/17 03:59 12/24/16 04:00 (Chlorhexidine 2% Cloth) 3 pack UNSCH PRN TOP 12/20/16 07:15 (Gerda-Colace) 1 tab BID PO 12/20/16 09:00 01/11/17 08:40 (Milk Of Magnesia Liq) 30 ml Q12H PRN PO 12/20/16 07:15 (Senokot) 17.2 mg Q12H PRN PO 12/20/16 07:15 (Dulcolax Supp) 10 mg DAILY PRN RECTAL 12/20/16 07:15 (Lactulose Liq) 30 ml DAILY PRN PO 12/20/16 07:15 (Elavil) 25 mg HS PO 12/20/16 21:00 01/10/17 20:37 (Robaxin) 500 mg Q8HR PO 12/20/16 14:00 01/11/17 05:46 (D50w (Vial) Inj) 50 ml UNSCH PRN IV PUSH 12/20/16 12:30 (Glucagon Inj) 1 mg UNSCH PRN OTHER 12/20/16 12:30 (NovoLIN R SUPPLEMENTAL SCALE) 1 ACHS SLIDING SCALE SQ 12/20/16 17:00 12/21/16 20:42 (Vitamin B1) 100 mg DAILY PO 12/21/16 09:00 01/10/17 09:26 (Folate) 1 mg DAILY PO 12/21/16 09:00 01/11/17 08:41 (Theragran) 1 tab DAILY PO 12/21/16 09:00 01/11/17 08:40 (OxyCONTIN CR) 40 mg Q12HR PO 12/21/16 21:00 01/10/17 20:38 (Percocet 10-325 Mg) 1 tab Q4H PRN PO 12/21/16 16:45 01/11/17 04:11 (Motrin) 400 mg Q8H PRN PO 12/22/16 19:00 01/09/17 11:56 (Ferrous Sulfate) 325 mg BID@12,17 PO 12/24/16 12:00 01/09/17 18:10 Cefazolin Sodium/ Dextrose 50 ml @ 150 mls/hr Q8H IV 12/26/16 11:00 01/11/17 04:11 (NS Flush) 2 ml UNSCH PRN IVF 01/02/17 22:00 01/11/17 08:44 (NS Flush) 2 ml BID IVF 01/03/17 09:00 01/10/17 19:34 (Dilaudid) 4 mg Q4H PRN PO 01/07/17 16:30 01/11/17 08:42 A/P Assessment and Plan T5/6 through T7/8 discitis Thoracic paraspinous abscess Pathologic fractures T5, 6 and 7. 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 Acetaminophen for fever We'll place on OxyContin 20 milligrams by mouth twice a day for pain management. On percocet per pain sclae 1-5 , dilaudid for pain 6-10 and add dilaudid 0.5 for breakthrough pain . Consult palliative care for bass management. Previously OxyContin 40 mg twice a day with Dilaudid 4 mg every 4 hours when necessary breakthrough pain Currently on amitriptyline 25 mg a night for depression Thiamine, multivitamin and folate daily Neurosurgery/Dr. Pickard consulted, ff MRI repeat 12/27/16 reviewed findings discussed with Dr Cruz ID specialist. patient with progression of osteomyelitis /discitis. Neurosurgery reevaluated for surgical intervention. S/p surgical intervention by Dr Urbina 01/02/17 Thoracic paraspinous abscess s/p Thoracic wound debridement, evacuation paraspinous abscess by Dr Pickard neurosurgery on 01/02/17 01/03/17 Give additional 0.5 mg dilaudid as patient with pain and tachycardic CV: Sinus tachycardia 2-D echocardiogram 05/29 revealed EF 55-60%. No regional wall motion abnormality. Resp: Tobaccoism Nasal cannula to maintain saturations greater than or equal to 92% Incentive spirometry while awake As needed albuterol aerosols Chest x-ray 12/20 revealed no acute findings GI: Regular diet Pantoprazole 40 mg daily for GI prophylaxis Docusate sodium/senna 1 tablet twice daily for bowel regimen Microcytic anemia Check iron studies/ferritin. Patient with iron deficiency anemia. Start ferrous sulfate 325 mg by mouth twice a day. Peripheral smear Severe protein calorie malnutrition, low BMI of 17.6, muscle waiting. 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 Consult chief design drafter. Paravertebral abscess, chronic vertebral Osteomyelitis, recurring epidural abscess, M. Abscess MSSA With MSSA and Ancef is started 12/26/16 per ID recommendations and vancomycin/ cefepime was DCd Pathologic Fracture T5,T6 and 7, Discitis from T5-6 and 7, Prevertebral abscess from T4 through T10 9.5 cm craniocaudal status post drainage, Mycobacterium abscesses cultures. Large Epidural Phlegmon causing spinal stenosis, Status post CT guided drainage, ID specialist following recommended to continue Cefazoline for 12 weeks, and follow in antibiotic clinic. okay to Discharge from ID standpoint. PT evaluate and treat Severe Protein calorie malnutrition BMI of 78, low albumin of 1.7. He can repeat, muscle wasting. Bitemporal wasting. 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 Access - Utilize peripheral IV. Central line if indicated Prophylaxis - GI - pantoprazole - DVT - SCD/holding pharmacological prophylaxis in light of possible surgical intervention Discharge Planning Plan to DC to SNF. CM ff for DC plan as well. Patient will need wound care, PT, IV antibiotic Ancef per ID recommendations, and pain management at DC. To follow up as Op with PCP and consultants. Needs clearance by neurosurgery and ID to arrange abx at DC also. Patient however with MRI showing worsening discitis/osteomyelitis , reevaluation by neurosurgery for surgical intervention. Not cleared for DC yet. S/P surgical intervention per neurosurgery 01/02/17. Drain was removed per neurosurgery;. Patient on dilaudid for pain meds per surgery considering tapering down pain meds. Case management ff for DC plan, pending placement to SNF. Okay to discharge from ID specialist standpoint. Patrick Sheffield MD Jan 11, 2017 09:06
[2017-01-11] MEDS: THIAMINE HCL 100 MG TAB PO SCH (09:25)
[2017-01-11] MEDS: oxyCODONE HCL 40 MG CONTROLLED RELEASE TAB PO SCH ×2 (09:26→21:20)
[2017-01-11 12:00] VITALS: BP 94/60; PULSE 110; RESP 20; TEMP 98.5; O2SAT 95
[2017-01-11] MEDS: FERROUS SULFATE 325 MG (65 MG ELEMENTAL IRON) TAB PO SCH ×2 (12:01→17:37)
--- NOTE | 2017-01-11 13:30 | HHI.PR ---
Addendum to Inpatient Note Additional Information pt is OK to go after his IV abx arranged upon completion of his IV abx he will need to stay on chronic oral suppression with Britney Carr MD Jan 11, 2017 13:30
[2017-01-11 16:00] VITALS: BP 104/65; PULSE 102; RESP 18; TEMP 98.2; O2SAT 98
[2017-01-11 20:00] VITALS: BP 117/71; PULSE 107; RESP 18; TEMP 98.2; O2SAT 96
[2017-01-11] MEDS: AMITRIPTYLINE HCL 25 MG TAB PO SCH (21:21)
[2017-01-12] VITALS: BP 118/74; PULSE 121; RESP 20; TEMP 99.3; O2SAT 99
[2017-01-12] MEDS: HYDROmorphone HCL 4 MG TAB PO PRN ×6 (01:04→20:58)
[2017-01-12] MEDS: ceFAZolin 2 GM PREMIX 50 ML IV SCH ×3 (02:18→18:34)
[2017-01-12] MEDS: oxyCODONE/ACETAMINOPHEN 10 MG/325 MG TAB PO PRN ×5 (02:18→22:41)
[2017-01-12] MEDS: CHLORHEXIDINE GLUCONATE 2 % 1 PACK (2 CLOTHS) TOP SCH (03:28)
[2017-01-12 04:00] VITALS: BP 116/76; PULSE 82; RESP 18; TEMP 97; O2SAT 95
[2017-01-12] MEDS: METHOCARBAMOL 500 MG TAB PO SCH ×3 (05:07→22:41)
[2017-01-12] MEDS: INSULIN NovoLIN REGULAR SUPPLEMENTAL SCALE SQ SCH ×4 (07:59→20:59)
[2017-01-12 08:00] VITALS: BP 126/75; PULSE 106; RESP 24; TEMP 97.1; O2SAT 96
[2017-01-12] MEDS: THIAMINE HCL 100 MG TAB PO SCH (08:46)
[2017-01-12] MEDS: MULTIVITAMIN TAB PO SCH (08:46)
[2017-01-12] MEDS: oxyCODONE HCL 40 MG CONTROLLED RELEASE TAB PO SCH ×2 (08:46→20:58)
[2017-01-12] MEDS: PANTOPRAZOLE SOD 40 MG DELAYED RELEASE TAB PO SCH (08:46)
[2017-01-12] MEDS: DOCUSATE SODIUM 50 MG/SENNA 8.6 MG TAB PO SCH ×2 (08:46→20:58)
[2017-01-12] MEDS: FOLIC ACID 1 MG TAB PO SCH (08:46)
[2017-01-12] MEDS: SODIUM CHLORIDE 0.9% FLUSH 5 ML FLUSH IVF SCH ×2 (08:47→20:59)
[2017-01-12] MEDS: FERROUS SULFATE 325 MG (65 MG ELEMENTAL IRON) TAB PO SCH ×2 (11:06→16:56)
[2017-01-12 12:00] VITALS: BP 108/81; PULSE 109; RESP 24; TEMP 96.7; O2SAT 95
[2017-01-12] MEDS ORDERED: OXYC-103 PO (14:18)
[2017-01-12] MEDS ORDERED: THIA100 PO (14:18)
[2017-01-12] MEDS ORDERED: FERR325T20 PO (14:18)
[2017-01-12] MEDS ORDERED: FOLI1TAB6 PO (14:18)
[2017-01-12] MEDS ORDERED: DILA4TAB10 PO (14:18)
--- NOTE | 2017-01-12 14:19 | HHI.PR ---
Subjective Remarks This is a pleasant 41 y/o Male with IV drug abuse, multiple infections spinal [id number], recently had Thoracic osteomyelitis, with paraspinous abscess and underwent a T4-5 laminectomy, evacuation abscess, culture grew mycobacterium abscessus. yesterday Neurosurgery removed drain, 01/06: Stable in his bedroom, discussed with Infectious Disease specialist Doctor Anthony he is ready to go from her standpoint, not yet found placement by [employer], will try to set him for discharge tomorrow of next Jose Elias will need to start working on his Pain medicine at this time IV, complaint of generalized pain. No nausea, vomit or diarrhea. 01/07: Discussed with the patient in the room, in order to prepare him for discharge he will need to be off IV pain medicine will give him by Mouth Dilaudid as per Nurse Miss Matos she states last time he was here he crushed his Oral Narcotics and administered himself IV with Milk. 01/08: Seen in his bedroom, seen with nurse the patient was seen injecting IV medicines, security called and also will continue by mouth pain medicines crushed and in apple sauce. a this time continue awaiting for placement. 01/09: Stable in his bedroom, was refusing IV line, discussed with nurse Miss Thomas. 01/10: Patient in his bedroom, stable no complaint, nurse Miss Pedroza 01/11: Discussed the patient in clinical rounds, not yet found placement for him , as per ID specialist Doctor Anthony. 01/12: Stable in his bedroom already accepted for Rehab facility. no nausea, vomit or diarrhea. Objective Vital Signs Date Time Temp Pulse Resp B/P (MAP) Pulse Ox O2 Delivery O2 Flow Rate FiO2 01/12/17 12:00 96.7 109 24 108/81 (90) 95 01/12/17 08:00 97.1 106 24 126/75 (92) 96 01/12/17 04:00 97.0 82 18 116/76 (89) 95 01/12/17 00:00 99.3 121 20 118/74 (89) 99 01/11/17 20:00 98.2 107 18 117/71 (86) 96 01/11/17 16:00 98.2 102 18 104/65 (78) 98 I/O 11/30/17 11/30/01/11/17 01/12/17 01/12/17 01/12/17 07:00 15:00 23:00 07:00 15:00 23:00 Intake Total 50 ml 50 ml Output Total 1300 ml 600 ml 1200 ml Balance -1250 ml -600 ml -1150 ml IV Total 50 ml 50 ml Output Urine Total 1300 ml 600 ml 1200 ml Imaging Last Impressions Hip and Pelvis X-Ray 01/10/17 0000 Signed Impressions: Service Date/Time: Tuesday, January 10, 2017 14:32 - CONCLUSION: Negative for source of pain. Jose Meeir MD FACR Thoracic Spine MRI 12/27/16 0000 Signed Impressions: Service Date/Time: Tuesday, December 27, 2016 12:44 - CONCLUSION: 1. When compared to the prior study there has been progression in the discitis/osteomyelitis with worsening osteomyelitis extending from T4-T7 and development of a new epidural abscess that extends into the paraspinal soft tissues posteriorly. The anterior paraspinal fluid collection is smaller from the prior study. Gopal Cates Jr., MD Chest CT 12/21/16 0000 Signed Impressions: Service Date/Time: December 11:52 - CONCLUSION: 1. Abnormal paraspinal fluid and soft tissue containing gas highly suspicious for a paraspinal abscess. This finding is similar distribution but decreased from the prior exam. It extends from approximately T3-T8. 2. There is an open wound on the midline back with contiguous subcutaneous air collection which extends to the area of prior laminectomy. There is a small amount of air within the spinal canal, likely in the epidural space. 3. Focal airspace consolidation in the right lower lobe with partial cavitation measuring approximately 2.3 x 1.1 cm. There was an area of consolidation on the prior examination and in identical location. However, it has decreased in size from the prior study. 4. Stable sclerosis and partial destruction of what is thought to be the T7 vertebral body. 5. Small bilateral pleural effusions. Roshan Galvez MD Abscess Drainage CT 12/21/16 0000 Signed Impressions: Service Date/Time: December 12:17 - CONCLUSION: Uncomplicated CT guided aspiration of the paraspinal fluid collection. I was only able to aspirate approximately 1-2 cc of reddish foul-smelling fluid. The sample was saved and sent to the lab for microbiological analysis. Roshan Galvez MD Chest X-Ray 12/20/16 0000 Signed Impressions: Service Date/Time: Tuesday, December 20, 2016 07:45 - CONCLUSION: Underinflation with atelectasis at the lung bases. Otherwise, no acute finding is appreciated. Roshan Galvez MD Procedures Thoracic paraspinous abscess s/p Thoracic wound debridement, evacuation paraspinous abscess by Dr Pickard neurosurgery on 01/02/17 Other Results Laboratory Tests Test 12/20/16 10:00 12/20/16 13:00 12/20/16 13:14 12/21/16 03:29 Nasal Screen MRSA (PCR) MRSA NOT DETECTED Hematology Comments Fibrinogen 505 mg/dL Ammonia 30 MCMOL/L Total Creatine Kinase 39 U/L Troponin I LESS THAN 0.02 NG/ML Amylase Level 43 U/L Lipase 63 U/L Thyroid Stimulating Hormone 3rd Gen 2.040 uIU/ML Differential Total Cells Counted 100 Neutrophils % (Manual) 57 % Band Neutrophils % 10 % Lymphocytes % 20 % Monocytes % 12 % Eosinophils % 1 % Neutrophils # (Manual) 3.8 TH/MM3 Toxic Granulation 1+ Platelet Estimate HIGH Platelet Morphology Comment ENLARGED Blood Smear Pathologist Review Lactic Acid Level 0.7 mmol/L Blood Urea Nitrogen 18 MG/DL Creatinine 0.79 MG/DL Random Glucose 79 MG/DL Total Protein 7.4 GM/DL Albumin 1.7 GM/DL Calcium Level 8.1 MG/DL Phosphorus Level 3.3 MG/DL Magnesium Level 2.2 MG/DL Alkaline Phosphatase 86 U/L Aspartate Amino Transf (AST/SGOT) 13 U/L Alanine Aminotransferase (ALT/SGPT) 21 U/L Total Bilirubin 0.2 MG/DL Sodium Level 137 MEQ/L Potassium Level 4.1 MEQ/L Chloride Level 105 MEQ/L Carbon Dioxide Level 25.9 MEQ/L Test 12/21/16 14:30 12/23/16 04:50 12/27/16 14:21 01/02/17 05:50 Iron Level 56 MCG/DL Total Iron Binding Capacity 309 MCG/DL Percent Iron Saturation 18.1 % Ferritin 193 NG/ML Vancomycin Level Trough 21.1 MCG/ML Erythrocyte Sedimentation Rate 65 mm/hr HIV (1&2) Antibody NEGATIVE Prothrombin Time 10.7 SEC Prothromb Time International Ratio 1.0 RATIO Activated Partial Thromboplast Time 27.5 SEC Blood Urea Nitrogen 12 MG/DL Creatinine 0.74 MG/DL Random Glucose 92 MG/DL Calcium Level 8.8 MG/DL Magnesium Level 1.8 MG/DL Sodium Level 134 MEQ/L Potassium Level 4.2 MEQ/L Chloride Level 97 MEQ/L Carbon Dioxide Level 30.4 MEQ/L Test 01/05/17 07:35 White Blood Count 4.3 TH/MM3 Red Blood Count 4.22 MIL/MM3 Hemoglobin 10.0 GM/DL Hematocrit 30.3 % Mean Corpuscular Volume 71.8 FL Mean Corpuscular Hemoglobin 23.7 PG Mean Corpuscular Hemoglobin Concent 33.0 % Red Cell Distribution Width 22.1 % Platelet Count 373 TH/MM3 Mean Platelet Volume 7.4 FL Neutrophils (%) (Auto) 44.7 % Lymphocytes (%) (Auto) 36.9 % Monocytes (%) (Auto) 10.9 % Eosinophils (%) (Auto) 6.8 % Basophils (%) (Auto) 0.7 % Neutrophils # (Auto) 1.9 TH/MM3 Lymphocytes # (Auto) 1.6 TH/MM3 Monocytes # (Auto) 0.5 TH/MM3 Eosinophils # (Auto) 0.3 TH/MM3 Basophils # (Auto) 0.0 TH/MM3 CBC Comment DIFF FINAL Differential Comment Blood Urea Nitrogen 12 MG/DL Creatinine 0.62 MG/DL Random Glucose 96 MG/DL Calcium Level 8.6 MG/DL Sodium Level 137 MEQ/L Potassium Level 4.1 MEQ/L Chloride Level 100 MEQ/L Carbon Dioxide Level 29.9 MEQ/L Anion Gap 7 MEQ/L Estimat Glomerular Filtration Rate 142 ML/MIN Objective Remarks GENERAL: Well developed, in no acute distress resting in be. SKIN: Warm and dry. Multiple tattoos bilateral upper extremities, Surgical wound on back area, healing properly. CARDIOVASCULAR: Tachycardic, RR. S1, S2 no S4. Do not appreciate murmur RESPIRATORY: Clear to auscultation. Breath sounds equal bilaterally. GASTROINTESTINAL: Abdomen soft, non-tender, nondistended. Hepatic and splenic margins not palpable. MUSCULOSKELETAL: Extremities without significant peripheral edema. S/p surgery drain was removed, dressing c/d/i around T2/3 thoracic spine NEUROLOGICAL: Awake and alert. No obvious cranial nerve deficits. Medications and IVs Current Medications Medications (Trade) Dose Ordered Sig/Rony Route Start Time Stop Time Status Last Admin (Tylenol) 650 mg Q6H PRN PO 12/20/16 07:15 (Protonix) 40 mg DAILY PO 12/20/16 09:00 01/12/17 08:46 (Zofran Inj) 4 mg Q6H PRN IV PUSH 12/20/16 07:15 (Albuterol Neb) 2.5 mg Q2HR NEB PRN INH 12/20/16 07:15 Miscellaneous Information 1 Q361D XX 12/20/16 07:15 (Chlorhexidine 2% Cloth) 3 pack Taper DAILY@04 TOP 12/21/16 04:00 12/17/17 03:59 12/24/16 04:00 (Chlorhexidine 2% Cloth) 3 pack UNSCH PRN TOP 12/20/16 07:15 (Gerda-Colace) 1 tab BID PO 12/20/16 09:00 01/12/17 08:46 (Milk Of Magnesia Liq) 30 ml Q12H PRN PO 12/20/16 07:15 (Senokot) 17.2 mg Q12H PRN PO 12/20/16 07:15 (Dulcolax Supp) 10 mg DAILY PRN RECTAL 12/20/16 07:15 (Lactulose Liq) 30 ml DAILY PRN PO 12/20/16 07:15 (Elavil) 25 mg HS PO 12/20/16 21:00 01/11/17 21:21 (Robaxin) 500 mg Q8HR PO 12/20/16 14:00 01/12/17 12:59 (D50w (Vial) Inj) 50 ml UNSCH PRN IV PUSH 12/20/16 12:30 (Glucagon Inj) 1 mg UNSCH PRN OTHER 12/20/16 12:30 (NovoLIN R SUPPLEMENTAL SCALE) 1 ACHS SLIDING SCALE SQ 12/20/16 17:00 12/21/16 20:42 (Vitamin B1) 100 mg DAILY PO 12/21/16 09:00 01/12/17 08:46 (Folate) 1 mg DAILY PO 12/21/16 09:00 01/12/17 08:46 (Theragran) 1 tab DAILY PO 12/21/16 09:00 01/12/17 08:46 (OxyCONTIN CR) 40 mg Q12HR PO 12/21/16 21:00 01/12/17 08:46 (Percocet 10-325 Mg) 1 tab Q4H PRN PO 12/21/16 16:45 01/12/17 11:06 (Motrin) 400 mg Q8H PRN PO 12/22/16 19:00 01/09/17 11:56 (Ferrous Sulfate) 325 mg BID@12,17 PO 12/24/16 12:00 01/12/17 11:06 Cefazolin Sodium/ Dextrose 50 ml @ 150 mls/hr Q8H IV 12/26/16 11:00 01/12/17 11:07 (NS Flush) 2 ml UNSCH PRN IVF 01/02/17 22:00 01/11/17 08:44 (NS Flush) 2 ml BID IVF 01/03/17 09:00 01/12/17 08:47 (Dilaudid) 4 mg Q4H PRN PO 01/07/17 16:30 01/12/17 12:59 A/P Assessment and Plan T5/6 through T7/8 discitis Thoracic paraspinous abscess Pathologic fractures T5, 6 and 7. 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 Acetaminophen for fever We'll place on OxyContin 20 milligrams by mouth twice a day for pain management. On percocet per pain sclae 1-5 , dilaudid for pain 6-10 and add dilaudid 0.5 for breakthrough pain . Consult palliative care for bass management. Previously OxyContin 40 mg twice a day with Dilaudid 4 mg every 4 hours when necessary breakthrough pain Currently on amitriptyline 25 mg a night for depression Thiamine, multivitamin and folate daily Neurosurgery/Dr. Pickard consulted, ff MRI repeat 12/27/16 reviewed findings discussed with Dr Cruz ID specialist. patient with progression of osteomyelitis /discitis. Neurosurgery reevaluated for surgical intervention. S/p surgical intervention by Dr Urbina 01/02/17 Thoracic paraspinous abscess s/p Thoracic wound debridement, evacuation paraspinous abscess by Dr Pickard neurosurgery on 01/02/17 01/03/17 Give additional 0.5 mg dilaudid as patient with pain and tachycardic CV: Sinus tachycardia 2-D echocardiogram 05/29 revealed EF 55-60%. No regional wall motion abnormality. Resp: Tobaccoism Nasal cannula to maintain saturations greater than or equal to 92% Incentive spirometry while awake As needed albuterol aerosols Chest x-ray 12/20 revealed no acute findings GI: Regular diet Pantoprazole 40 mg daily for GI prophylaxis Docusate sodium/senna 1 tablet twice daily for bowel regimen Microcytic anemia Check iron studies/ferritin. Patient with iron deficiency anemia. Start ferrous sulfate 325 mg by mouth twice a day. Peripheral smear Severe protein calorie malnutrition, low BMI of 17.6, muscle waiting. 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 Consult travel information center supervisor. Paravertebral abscess, chronic vertebral Osteomyelitis, recurring epidural abscess, M. Abscess MSSA With MSSA and Ancef is started 12/26/16 per ID recommendations and vancomycin/ cefepime was DCd Pathologic Fracture T5,T6 and 7, Discitis from T5-6 and 7, Prevertebral abscess from T4 through T10 9.5 cm craniocaudal status post drainage, Mycobacterium abscesses cultures. Large Epidural Phlegmon causing spinal stenosis, Status post CT guided drainage, ID specialist following recommended to continue Cefazoline for 12 weeks, and follow in antibiotic clinic. okay to Discharge from ID standpoint. PT evaluate and treat Severe Protein calorie malnutrition BMI of 78, low albumin of 1.7. He can repeat, muscle wasting. Bitemporal wasting. 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 Access - Utilize peripheral IV. Central line if indicated Prophylaxis - GI - pantoprazole - DVT - SCD/holding pharmacological prophylaxis in light of possible surgical intervention Discharge Planning Plan to DC to SNF. CM ff for DC plan as well. Patient will need wound care, PT, IV antibiotic Ancef per ID recommendations, and pain management at DC. To follow up as Op with PCP and consultants. Needs clearance by neurosurgery and ID to arrange abx at DC also. Patient however with MRI showing worsening discitis/osteomyelitis , reevaluation by neurosurgery for surgical intervention. Not cleared for DC yet. S/P surgical intervention per neurosurgery 01/02/17. Drain was removed per neurosurgery;. Patient on dilaudid for pain meds per surgery considering tapering down pain meds. Case management ff for DC plan, pending placement to SNF. Okay to discharge from ID specialist standpoint. Patrick Sheffield MD Jan 12, 2017 14:19
--- NOTE | 2017-01-12 14:22 | HHI.DS ---
Discharge Summary Admission Date Dec 20, 2016 at 06:56 Discharge Date: Jan 12, 2017 Admitting Diagnosis Diskitis, prevertebral abscesses of the spine, sepsis (1) Spinal abscess ICD Code: M46.20 - Osteomyelitis of vertebra, site unspecified Diagnosis: Principal (2) Gastroesophageal reflux disease ICD Code: K21.9 - Gastro-esophageal reflux disease without esophagitis Diagnosis: Principal (3) Acute kidney injury ICD Code: N17.9 - Acute kidney failure, unspecified Diagnosis: Principal (4) Thrombocytosis ICD Code: D47.3 - Essential (hemorrhagic) thrombocythemia Diagnosis: Principal (5) Microcytic anemia ICD Code: D50.9 - Iron deficiency anemia, unspecified Diagnosis: Principal (6) Leukocytosis ICD Code: D72.829 - Elevated white blood cell count, unspecified Diagnosis: Principal (7) Hyperkalemia ICD Code: E87.5 - Hyperkalemia Diagnosis: Principal (8) Discitis ICD Code: M46.40 - Discitis Diagnosis: Principal Status: Acute (9) Renal failure ICD Code: N19 - Renal failure Diagnosis: Principal Status: Acute (10) Intravenous drug abuse in remission ICD Code: F19.10 - Intravenous drug abuse in remission Diagnosis: Principal Status: Acute (11) HTN (hypertension) ICD Code: I10 - Essential (primary) hypertension Diagnosis: Principal Status: Acute (12) Osteomyelitis ICD Code: M86.9 - Osteomyelitis Diagnosis: Principal Status: Acute (13) Tobacco abuse ICD Code: Z72.0 - Tobacco abuse Diagnosis: Principal Status: Acute (14) Pulmonary abscess ICD Code: J85.2 - Abscess of lung without pneumonia Diagnosis: Principal Status: Acute Procedures Thoracic paraspinous abscess s/p Thoracic wound debridement, evacuation paraspinous abscess by Dr Pickard neurosurgery on 01/02/17 Brief History - From Admission This is a 41-year-old male. Date of admission 12/20/2016. 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 Patient presents to [facility] as a direct transfer from [facility] with the following history. Patient with six-day history of back and hip pain. Patient was noted to have a potassium 5.6, elevated white blood cell count, microcytic anemia and thrombocytosis. MRI of thoracic spine revealed pathologic fractures T5, 6 and 7. Discitis from T5/6 to T7/8. Prevertebral abscess from T4 through T10 9.5 cm craniocaudal. There is right extrapulmonic abscesses noted 2.4 x 1.7 cm in the bilateral abscesses goes posteriorly 2.5 x 2.7 x 2 cm as well. There is a large epidural phlegmon causing spinal stenosis. Patient received vancomycin and piperacillin/tazobactam at outside facility was accepted by Dr. Huitron for Dr. Pickard to evaluate and treat. Currently, patient has complained of pain. Patient has noted open area upper thoracic spine 3 x 3 cm with erythema. No pus visualized currently. Patient has received fentanyl for pain in route. Imaging Last Impressions Hip and Pelvis X-Ray 01/10/17 0000 Signed Impressions: Service Date/Time: Tuesday, January 10, 2017 14:32 - CONCLUSION: Negative for source of pain. Jose Meier MD FACR Thoracic Spine MRI 12/27/16 0000 Signed Impressions: Service Date/Time: Tuesday, December 27, 2016 12:44 - CONCLUSION: 1. When compared to the prior study there has been progression in the discitis/osteomyelitis with worsening osteomyelitis extending from T4-T7 and development of a new epidural abscess that extends into the paraspinal soft tissues posteriorly. The anterior paraspinal fluid collection is smaller from the prior study. Gopal Cates Jr., MD Chest CT 12/21/16 0000 Signed Impressions: Service Date/Time: December 11:52 - CONCLUSION: 1. Abnormal paraspinal fluid and soft tissue containing gas highly suspicious for a paraspinal abscess. This finding is similar distribution but decreased from the prior exam. It extends from approximately T3-T8. 2. There is an open wound on the midline back with contiguous subcutaneous air collection which extends to the area of prior laminectomy. There is a small amount of air within the spinal canal, likely in the epidural space. 3. Focal airspace consolidation in the right lower lobe with partial cavitation measuring approximately 2.3 x 1.1 cm. There was an area of consolidation on the prior examination and in identical location. However, it has decreased in size from the prior study. 4. Stable sclerosis and partial destruction of what is thought to be the T7 vertebral body. 5. Small bilateral pleural effusions. Roshan Galvez MD Abscess Drainage CT 12/21/16 0000 Signed Impressions: Service Date/Time: December 12:17 - CONCLUSION: Uncomplicated CT guided aspiration of the paraspinal fluid collection. I was only able to aspirate approximately 1-2 cc of reddish foul-smelling fluid. The sample was saved and sent to the lab for microbiological analysis. Roshan Galvez MD Chest X-Ray 12/20/16 0000 Signed Impressions: Service Date/Time: Tuesday, December 20, 2016 07:45 - CONCLUSION: Underinflation with atelectasis at the lung bases. Otherwise, no acute finding is appreciated. Roshan Galvez MD PE at Discharge GENERAL: Well developed, in no acute distress resting in be. SKIN: Warm and dry. Multiple tattoos bilateral upper extremities, Surgical wound on back area, healing properly. CARDIOVASCULAR: Tachycardic, RR. S1, S2 no S4. Do not appreciate murmur RESPIRATORY: Clear to auscultation. Breath sounds equal bilaterally. GASTROINTESTINAL: Abdomen soft, non-tender, nondistended. Hepatic and splenic margins not palpable. MUSCULOSKELETAL: Extremities without significant peripheral edema. S/p surgery drain was removed, dressing c/d/i around T2/3 thoracic spine NEUROLOGICAL: Awake and alert. No obvious cranial nerve deficits. Hospital Course This is a pleasant 41 y/o Male with IV drug abuse, multiple infections spinal isfgnik-bbecypzw-Kaqndmkhdwtqo, recently had Thoracic osteomyelitis, with paraspinous abscess and underwent a T4-5 laminectomy, evacuation abscess, culture grew mycobacterium abscessus. yesterday Neurosurgery removed drain, 01/06: Stable in his bedroom, discussed with Infectious Disease specialist Doctor Anthony he is ready to go from her standpoint, not yet found placement by [employer], will try to set him for discharge tomorrow of next Jose Elias will need to start working on his Pain medicine at this time IV, complaint of generalized pain. No nausea, vomit or diarrhea. 01/07: Discussed with the patient in the room, in order to prepare him for discharge he will need to be off IV pain medicine will give him by Mouth Dilaudid as per Nurse Miss Matos she states last time he was here he crushed his Oral Narcotics and administered himself IV with Milk. 01/08: Seen in his bedroom, seen with nurse the patient was seen injecting IV medicines, security called and also will continue by mouth pain medicines crushed and in apple sauce. a this time continue awaiting for placement. 01/09: Stable in his bedroom, was refusing IV line, discussed with nurse Miss Thomas. 01/10: Patient in his bedroom, stable no complaint, nurse Miss Pedroza 01/11: Discussed the patient in clinical rounds, not yet found placement for him , as per ID specialist Doctor Anthony. 01/12: Stable in his bedroom already accepted for Rehab facility. no nausea, vomit or diarrhea. Assessment and Plan T5/6 through T7/8 discitis Thoracic paraspinous abscess Pathologic fractures T5, 6 and 7. 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 Acetaminophen for fever We'll place on OxyContin 20 milligrams by mouth twice a day for pain management. On percocet per pain sclae 1-5 , dilaudid for pain 6-10 and add dilaudid 0.5 for breakthrough pain . Consult palliative care for bass management. Previously OxyContin 40 mg twice a day with Dilaudid 4 mg every 4 hours when necessary breakthrough pain Currently on amitriptyline 25 mg a night for depression Thiamine, multivitamin and folate daily Neurosurgery/Dr. Pickard consulted, ff MRI repeat 12/27/16 reviewed findings discussed with Dr Cruz ID specialist. patient with progression of osteomyelitis /discitis. Neurosurgery reevaluated for surgical intervention. S/p surgical intervention by Dr Urbina 01/02/17 Thoracic paraspinous abscess s/p Thoracic wound debridement, evacuation paraspinous abscess by Dr Pickard neurosurgery on 01/02/17 01/03/17 Give additional 0.5 mg dilaudid as patient with pain and tachycardic CV: Sinus tachycardia 2-D echocardiogram 05/29 revealed EF 55-60%. No regional wall motion abnormality. Resp: Tobaccoism Nasal cannula to maintain saturations greater than or equal to 92% Incentive spirometry while awake As needed albuterol aerosols Chest x-ray 12/20 revealed no acute findings GI: Regular diet Pantoprazole 40 mg daily for GI prophylaxis Docusate sodium/senna 1 tablet twice daily for bowel regimen Microcytic anemia Check iron studies/ferritin. Patient with iron deficiency anemia. Start ferrous sulfate 325 mg by mouth twice a day. Peripheral smear Severe protein calorie malnutrition, low BMI of 17.6, muscle waiting. 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 Consult warp tension tester. Paravertebral abscess, chronic vertebral Osteomyelitis, recurring epidural abscess, M. Abscess MSSA With MSSA and Ancef is started 12/26/16 per ID recommendations and vancomycin/ cefepime was DCd Pathologic Fracture T5,T6 and 7, Discitis from T5-6 and 7, Prevertebral abscess from T4 through T10 9.5 cm craniocaudal status post drainage, Mycobacterium abscesses cultures. Large Epidural Phlegmon causing spinal stenosis, Status post CT guided drainage, ID specialist following recommended to continue Cefazoline for 12 weeks, and follow in antibiotic clinic. okay to Discharge from ID standpoint. PT evaluate and treat Severe Protein calorie malnutrition BMI of 78, low albumin of 1.7. He can repeat, muscle wasting. Bitemporal wasting. 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 Access - Utilize peripheral IV. Central line if indicated Prophylaxis - GI - pantoprazole - DVT - SCD/holding pharmacological prophylaxis in light of possible surgical intervention Discharge Planning Plan to DC to SNF. CM ff for DC plan as well. Patient will need wound care, PT, IV antibiotic Ancef per ID recommendations, and pain management at DC. To follow up as Op with PCP and consultants. Needs clearance by neurosurgery and ID to arrange abx at DC also. Patient however with MRI showing worsening discitis/osteomyelitis , reevaluation by neurosurgery for surgical intervention. Not cleared for DC yet. S/P surgical intervention per neurosurgery 01/02/17. Drain was removed per neurosurgery;. Patient on dilaudid for pain meds per surgery considering tapering down pain meds. Case management ff for DC plan, pending placement to SNF. Okay to discharge from ID specialist standpoint. Pt Condition on Discharge: Good Discharge Disposition: Discharge to SNF Discharge Time: > 30 minutes Discharge Instructions DIET: Follow Instructions for: As Tolerated, No Restrictions Activities you can perform: Regular-No Restrictions Patrick Sheffield MD Jan 12, 2017 14:21
[2017-01-12 16:00] VITALS: BP 116/70; PULSE 108; RESP 24; TEMP 97.4; O2SAT 94
[2017-01-12] MEDS: AMITRIPTYLINE HCL 25 MG TAB PO SCH (20:58)
[2017-01-12 21:16] VITALS: BP 139/93; PULSE 118; RESP 18; TEMP 99.7; O2SAT 98
[2017-01-13 00:02] VITALS: BP 120/63; PULSE 124; RESP 18; TEMP 98.3; O2SAT 95
[2017-01-13] MEDS: HYDROmorphone HCL 4 MG TAB PO PRN ×4 (00:50→14:17)
[2017-01-13] MEDS: oxyCODONE/ACETAMINOPHEN 10 MG/325 MG TAB PO PRN ×2 (03:31→16:48)
[2017-01-13] MEDS: ceFAZolin 2 GM PREMIX 50 ML IV SCH ×2 (03:31→11:00)
[2017-01-13] MEDS: CHLORHEXIDINE GLUCONATE 2 % 1 PACK (2 CLOTHS) TOP SCH (03:32)
[2017-01-13 04:36] VITALS: BP 116/69; PULSE 117; RESP 18; TEMP 99.7; O2SAT 96
[2017-01-13] MEDS: METHOCARBAMOL 500 MG TAB PO SCH ×2 (05:26→14:17)
[2017-01-13] MEDS: INSULIN NovoLIN REGULAR SUPPLEMENTAL SCALE SQ SCH ×3 (07:40→16:20)
[2017-01-13 08:00] VITALS: BP 105/55; PULSE 108; RESP 16; TEMP 97.9; O2SAT 98
[2017-01-13] MEDS: SODIUM CHLORIDE 0.9% FLUSH 5 ML FLUSH IVF SCH (09:00)
[2017-01-13] MEDS: THIAMINE HCL 100 MG TAB PO SCH (09:26)
[2017-01-13] MEDS: oxyCODONE HCL 40 MG CONTROLLED RELEASE TAB PO SCH (09:27)
[2017-01-13] MEDS: MULTIVITAMIN TAB PO SCH (09:27)
[2017-01-13] MEDS: PANTOPRAZOLE SOD 40 MG DELAYED RELEASE TAB PO SCH (09:28)
[2017-01-13] MEDS: DOCUSATE SODIUM 50 MG/SENNA 8.6 MG TAB PO SCH (09:28)
[2017-01-13] MEDS: FOLIC ACID 1 MG TAB PO SCH (09:28)
[2017-01-13] MEDS: FERROUS SULFATE 325 MG (65 MG ELEMENTAL IRON) TAB PO SCH ×2 (10:59→16:48)
[2017-01-13 12:00] VITALS: BP 105/65; PULSE 64; RESP 16; TEMP 97.4; O2SAT 94
[2017-01-13] MEDS ORDERED: SODIUM CHLORIDE 0.9% FLUSH 10 ML FLUSH IVF PRN ×2 (14:00)
--- NOTE | 2017-01-13 14:00 | PD.RAD ---
Radiology Post PICC Prog Note Pre Procedure Diagnosis: (1) Chronic osteomyelitis, other specified site (2) Spinal abscess Post Procedure Diagnosis: (1) Chronic osteomyelitis, other specified site (2) Spinal abscess Procedure: Right PICC line placement Procedure Date: Jan 13, 2017 Supervising Radiologist Roshan Jain Proceduralist/Assist: Felisha Jean, RT(R)(CV) Device Side: Right [place]an: 4 single lumen cm: 38 Catheter: Power PICC Plan of Activity Patient to Unit: Nursing Unit Patient Condition: Good PICC line can be used immediately Additional Comments: pt found to have high grade multifocal stenoses in brachial and subclavian veins - traversed without complication for PICC placement into the SVC Roshan Jain MD Jan 13, 2017 14:00
--- NOTE | 2017-01-13 15:15 | RADRPT ---
EXAM DATE/TIME: 01/13/2017 14:26 [place] COMPARISON: No previous studies available for comparison. INDICATIONS : Patient presents with osteomyelitis in need of peripheral intravenous access for medication administr ation. MEDICAL HISTORY : Hepatitis C Sinus tachycardia Hypertension History of IV drug use of opiates History of cocaine abuse THC use History of MSSA thoracic abscess History of pulmonary abscesses SURGICAL HISTORY : History bilateral T5 through 10 laminectomy with posterolateral allograft 2011 Suprapubic catheter placement 2011 Left radial artery repair/APL tendon repair 2012 T8/9 transpedicular corpectomy/laminectomy with T 6-11 posterolateral fusion History of pulmonary abscesses drained at [facility] January 2016 T5/6 decompressive laminectomy with evacuation of epidural abscess T4/5 laminectomy with discectomy T3 sinus 6 posterior lateral fusion Bilateral T3/4 pedicle screw fixation Repeat T4/5 decompression with evacuation of paraspinal abscess Right hip ORIF ENCOUNTER: Subsequent ACUITY: 1 month PAIN SCORE: 0/10 LOCATION: N/A FLUORO TIME: 4.6 minutes IMAGE SERIES: 1 CONTRAST: 10 cc Omnipaque (iohexol) 350 ACCESS: Right brachial vein DEVICE(S): 1.) 4 [place] single lumen 38 cm Xcela Power PICC PROCEDURE : 1. Ultrasound guidance for venous catheterization. 2. Fluoroscopic guidance. 3. Ultrasound & fluoroscopic guided central venous Power PICC line placement. The risks, benefits and alternatives to the procedure were explained and verbal and written consent w as obtained. The site was prepped in sterile fashion. Full sterile technique was used, including ca p, mask, sterile gloves and gown and a large sterile sheet. Hand hygiene and 2% chlorhexidine prep w as utilized per protocol for cutaneous antisepsis with appropriate dry time for site. Sterile gel a nd sterile probe cover were utilized for ultrasound guidance. The skin and subcutaneous tissues wer e infiltrated with local anesthetic solution. Under direct ultrasound guidance, the right brachial vein was accessed. There was resistance to passa ge of the guidewire into the proximal right arm and therefore the 4 [place] micropuncture dilator was used to perform subtraction venography centered over the right arm shoulder and chest. This evaluatio n reveals multifocal brachial vein, axillary vein and subclavian venous stenoses, all high-grade. I w as able to manipulate a Glidewire and angled glide X. catheter combination through the areas of steno sis and into the central venous system. A measuring guidewire was then introduced and positioned at t he atriocaval junction level. A Power Injectable PICC line was cut to prescribed length and introduced, positioned with tip at the cavoatrial junction level. The line was flushed and secured per protocol. CONCLUSION: 1. central venous Power PICC line placement rendered challenging by the presence of multifocal high- grade right arm brachial, axillary and subclavian venous stenoses. 2. The PICC line can be used immediately. Roshan Jain MD on January 13, 2017 at 15:08 Board Certified Radiologist. This report was verified electronically.
--- NOTE | 2017-01-13 15:44 | HHI.PR ---
Subjective Remarks This is a pleasant 41 y/o Male with IV drug abuse, multiple infections spinal [id number], recently had Thoracic osteomyelitis, with paraspinous abscess and underwent a T4-5 laminectomy, evacuation abscess, culture grew mycobacterium abscessus. yesterday Neurosurgery removed drain, 01/06: Stable in his bedroom, discussed with Infectious Disease specialist Doctor Anthony he is ready to go from her standpoint, not yet found placement by Front Office Manager, will try to set him for discharge tomorrow of next Jose Elias will need to start working on his Pain medicine at this time IV, complaint of generalized pain. No nausea, vomit or diarrhea. 01/07: Discussed with the patient in the room, in order to prepare him for discharge he will need to be off IV pain medicine will give him by Mouth Dilaudid as per Nurse Miss Matos she states last time he was here he crushed his Oral Narcotics and administered himself IV with Milk. 01/08: Seen in his bedroom, seen with nurse the patient was seen injecting IV medicines, security called and also will continue by mouth pain medicines crushed and in apple sauce. a this time continue awaiting for placement. 01/09: Stable in his bedroom, was refusing IV line, discussed with nurse Miss Thomas. 01/10: Patient in his bedroom, stable no complaint, nurse Miss Pedroza 01/11: Discussed the patient in clinical rounds, not yet found placement for him , as per ID specialist Doctor Anthony. 01/12: Stable in his bedroom already accepted for Rehab facility. will place a PICC line and discharge Objective Vital Signs Date Time Temp Pulse Resp B/P (MAP) Pulse Ox O2 Delivery O2 Flow Rate FiO2 01/13/17 12:00 97.4 64 16 105/65 (78) 94 01/13/17 08:00 97.9 108 16 105/55 (72) 98 01/13/17 04:36 99.7 117 18 116/69 (85) 96 01/13/17 00:02 98.3 124 18 120/63 (82) 95 01/12/17 21:16 99.7 118 18 139/93 (108) 98 01/12/17 16:00 97.4 108 24 116/70 (85) 94 I/O 12/1/17 12/1/01/12/17 01/13/17 01/13/17 01/13/17 07:00 15:00 23:00 07:00 15:00 23:00 Intake Total 50 ml 1320 ml Output Total 1200 ml 1500 ml Balance -1150 ml -180 ml Intake Oral 1320 ml IV Total 50 ml Output Urine Total 1200 ml 1500 ml # Voids 3 Imaging Last Impressions PICC Line Insertion 01/13/17 0000 Signed Impressions: Service Date/Time: Friday, January 13, 2017 14:26 - CONCLUSION: 1. central venous Power PICC line placement rendered challenging by the presence of multifocal high-grade right arm brachial, axillary and subclavian venous stenoses. 2. The PICC line can be used immediately. Roshan Jain MD Hip and Pelvis X-Ray 01/10/17 0000 Signed Impressions: Service Date/Time: Tuesday, January 10, 2017 14:32 - CONCLUSION: Negative for source of pain. Jose Meier MD FACR Thoracic Spine MRI 12/27/16 0000 Signed Impressions: Service Date/Time: Tuesday, December 27, 2016 12:44 - CONCLUSION: 1. When compared to the prior study there has been progression in the discitis/osteomyelitis with worsening osteomyelitis extending from T4-T7 and development of a new epidural abscess that extends into the paraspinal soft tissues posteriorly. The anterior paraspinal fluid collection is smaller from the prior study. Gopal Cates Jr., MD Chest CT 12/21/16 0000 Signed Impressions: Service Date/Time: December 11:52 - CONCLUSION: 1. Abnormal paraspinal fluid and soft tissue containing gas highly suspicious for a paraspinal abscess. This finding is similar distribution but decreased from the prior exam. It extends from approximately T3-T8. 2. There is an open wound on the midline back with contiguous subcutaneous air collection which extends to the area of prior laminectomy. There is a small amount of air within the spinal canal, likely in the epidural space. 3. Focal airspace consolidation in the right lower lobe with partial cavitation measuring approximately 2.3 x 1.1 cm. There was an area of consolidation on the prior examination and in identical location. However, it has decreased in size from the prior study. 4. Stable sclerosis and partial destruction of what is thought to be the T7 vertebral body. 5. Small bilateral pleural effusions. Roshan Galvez MD Abscess Drainage CT 12/21/16 0000 Signed Impressions: Service Date/Time: December 12:17 - CONCLUSION: Uncomplicated CT guided aspiration of the paraspinal fluid collection. I was only able to aspirate approximately 1-2 cc of reddish foul-smelling fluid. The sample was saved and sent to the lab for microbiological analysis. Roshan Galvez MD Chest X-Ray 12/20/16 0000 Signed Impressions: Service Date/Time: Tuesday, December 20, 2016 07:45 - CONCLUSION: Underinflation with atelectasis at the lung bases. Otherwise, no acute finding is appreciated. Roshan Galvez MD Procedures Thoracic paraspinous abscess s/p Thoracic wound debridement, evacuation paraspinous abscess by Dr Pickard neurosurgery on 01/02/17 Other Results Laboratory Tests Test 12/20/16 10:00 12/20/16 13:00 12/20/16 13:14 12/21/16 03:29 Nasal Screen MRSA (PCR) MRSA NOT DETECTED Hematology Comments Fibrinogen 505 mg/dL Ammonia 30 MCMOL/L Total Creatine Kinase 39 U/L Troponin I LESS THAN 0.02 NG/ML Amylase Level 43 U/L Lipase 63 U/L Thyroid Stimulating Hormone 3rd Gen 2.040 uIU/ML Differential Total Cells Counted 100 Neutrophils % (Manual) 57 % Band Neutrophils % 10 % Lymphocytes % 20 % Monocytes % 12 % Eosinophils % 1 % Neutrophils # (Manual) 3.8 TH/MM3 Toxic Granulation 1+ Platelet Estimate HIGH Platelet Morphology Comment ENLARGED Blood Smear Pathologist Review Lactic Acid Level 0.7 mmol/L Blood Urea Nitrogen 18 MG/DL Creatinine 0.79 MG/DL Random Glucose 79 MG/DL Total Protein 7.4 GM/DL Albumin 1.7 GM/DL Calcium Level 8.1 MG/DL Phosphorus Level 3.3 MG/DL Magnesium Level 2.2 MG/DL Alkaline Phosphatase 86 U/L Aspartate Amino Transf (AST/SGOT) 13 U/L Alanine Aminotransferase (ALT/SGPT) 21 U/L Total Bilirubin 0.2 MG/DL Sodium Level 137 MEQ/L Potassium Level 4.1 MEQ/L Chloride Level 105 MEQ/L Carbon Dioxide Level 25.9 MEQ/L Test 12/21/16 14:30 12/23/16 04:50 12/27/16 14:21 01/02/17 05:50 Iron Level 56 MCG/DL Total Iron Binding Capacity 309 MCG/DL Percent Iron Saturation 18.1 % Ferritin 193 NG/ML Vancomycin Level Trough 21.1 MCG/ML Erythrocyte Sedimentation Rate 65 mm/hr HIV (1&2) Antibody NEGATIVE Prothrombin Time 10.7 SEC Prothromb Time International Ratio 1.0 RATIO Activated Partial Thromboplast Time 27.5 SEC Blood Urea Nitrogen 12 MG/DL Creatinine 0.74 MG/DL Random Glucose 92 MG/DL Calcium Level 8.8 MG/DL Magnesium Level 1.8 MG/DL Sodium Level 134 MEQ/L Potassium Level 4.2 MEQ/L Chloride Level 97 MEQ/L Carbon Dioxide Level 30.4 MEQ/L Test 01/05/17 07:35 White Blood Count 4.3 TH/MM3 Red Blood Count 4.22 MIL/MM3 Hemoglobin 10.0 GM/DL Hematocrit 30.3 % Mean Corpuscular Volume 71.8 FL Mean Corpuscular Hemoglobin 23.7 PG Mean Corpuscular Hemoglobin Concent 33.0 % Red Cell Distribution Width 22.1 % Platelet Count 373 TH/MM3 Mean Platelet Volume 7.4 FL Neutrophils (%) (Auto) 44.7 % Lymphocytes (%) (Auto) 36.9 % Monocytes (%) (Auto) 10.9 % Eosinophils (%) (Auto) 6.8 % Basophils (%) (Auto) 0.7 % Neutrophils # (Auto) 1.9 TH/MM3 Lymphocytes # (Auto) 1.6 TH/MM3 Monocytes # (Auto) 0.5 TH/MM3 Eosinophils # (Auto) 0.3 TH/MM3 Basophils # (Auto) 0.0 TH/MM3 CBC Comment DIFF FINAL Differential Comment Blood Urea Nitrogen 12 MG/DL Creatinine 0.62 MG/DL Random Glucose 96 MG/DL Calcium Level 8.6 MG/DL Sodium Level 137 MEQ/L Potassium Level 4.1 MEQ/L Chloride Level 100 MEQ/L Carbon Dioxide Level 29.9 MEQ/L Anion Gap 7 MEQ/L Estimat Glomerular Filtration Rate 142 ML/MIN Objective Remarks GENERAL: Well developed, in no acute distress resting in be. SKIN: Warm and dry. Multiple tattoos bilateral upper extremities, Surgical wound on back area, healing properly. CARDIOVASCULAR: Tachycardic, RR. S1, S2 no S4. Do not appreciate murmur RESPIRATORY: Clear to auscultation. Breath sounds equal bilaterally. GASTROINTESTINAL: Abdomen soft, non-tender, nondistended. Hepatic and splenic margins not palpable. MUSCULOSKELETAL: Extremities without significant peripheral edema. S/p surgery drain was removed, dressing c/d/i around T2/3 thoracic spine NEUROLOGICAL: Awake and alert. No obvious cranial nerve deficits. Medications and IVs Current Medications Medications (Trade) Dose Ordered Sig/Rony Route Start Time Stop Time Status Last Admin (Tylenol) 650 mg Q6H PRN PO 12/20/16 07:15 (Protonix) 40 mg DAILY PO 12/20/16 09:00 01/13/17 09:28 (Zofran Inj) 4 mg Q6H PRN IV PUSH 12/20/16 07:15 (Albuterol Neb) 2.5 mg Q2HR NEB PRN INH 12/20/16 07:15 Miscellaneous Information 1 Q361D XX 12/20/16 07:15 (Chlorhexidine 2% Cloth) 3 pack Taper DAILY@04 TOP 12/21/16 04:00 12/17/17 03:59 12/24/16 04:00 (Chlorhexidine 2% Cloth) 3 pack UNSCH PRN TOP 12/20/16 07:15 (Gerda-Colace) 1 tab BID PO 12/20/16 09:00 01/13/17 09:28 (Milk Of Magnesia Liq) 30 ml Q12H PRN PO 12/20/16 07:15 (Senokot) 17.2 mg Q12H PRN PO 12/20/16 07:15 (Dulcolax Supp) 10 mg DAILY PRN RECTAL 12/20/16 07:15 (Lactulose Liq) 30 ml DAILY PRN PO 12/20/16 07:15 (Elavil) 25 mg HS PO 12/20/16 21:00 01/12/17 20:58 (Robaxin) 500 mg Q8HR PO 12/20/16 14:00 01/13/17 14:17 (D50w (Vial) Inj) 50 ml UNSCH PRN IV PUSH 12/20/16 12:30 (Glucagon Inj) 1 mg UNSCH PRN OTHER 12/20/16 12:30 (NovoLIN R SUPPLEMENTAL SCALE) 1 ACHS SLIDING SCALE SQ 12/20/16 17:00 12/21/16 20:42 (Vitamin B1) 100 mg DAILY PO 12/21/16 09:00 01/13/17 09:26 (Folate) 1 mg DAILY PO 12/21/16 09:00 01/13/17 09:28 (Theragran) 1 tab DAILY PO 12/21/16 09:00 01/13/17 09:27 (OxyCONTIN CR) 40 mg Q12HR PO 12/21/16 21:00 01/13/17 09:27 (Percocet 10-325 Mg) 1 tab Q4H PRN PO 12/21/16 16:45 01/13/17 03:31 (Motrin) 400 mg Q8H PRN PO 12/22/16 19:00 01/09/17 11:56 (Ferrous Sulfate) 325 mg BID@ PO 12/24/16 12:00 01/13/17 10:59 Cefazolin Sodium/ Dextrose 50 ml @ 150 mls/hr Q8H IV 12/26/16 11:00 01/13/17 03:31 (NS Flush) 2 ml UNSCH PRN IVF 01/02/17 22:00 01/11/17 08:44 (NS Flush) 2 ml BID IVF 01/03/17 09:00 01/13/17 09:00 (Dilaudid) 4 mg Q4H PRN PO 01/07/17 16:30 01/13/17 14:17 (NS Flush) DAILY IVF 01/14/17 09:00 (Heparin Central Flush) DAILY IV FLUSH 01/14/17 09:00 (NS Flush) UNSCH PRN IVF 01/13/17 14:00 (Heparin Central Flush) UNSCH PRN IV FLUSH 01/13/17 14:00 (NS Flush) UNSCH PRN IVF 01/13/17 14:00 A/P Assessment and Plan T5/6 through T7/8 discitis Thoracic paraspinous abscess Pathologic fractures T5, 6 and 7. 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 Acetaminophen for fever We'll place on OxyContin 20 milligrams by mouth twice a day for pain management. On percocet per pain sclae 1-5 , dilaudid for pain 6-10 and add dilaudid 0.5 for breakthrough pain . Consult palliative care for bass management. Previously OxyContin 40 mg twice a day with Dilaudid 4 mg every 4 hours when necessary breakthrough pain Currently on amitriptyline 25 mg a night for depression Thiamine, multivitamin and folate daily Neurosurgery/Dr. Pickard consulted, ff MRI repeat 12/27/16 reviewed findings discussed with Dr Cruz ID specialist. patient with progression of osteomyelitis /discitis. Neurosurgery reevaluated for surgical intervention. S/p surgical intervention by Dr Urbina 01/02/17 Thoracic paraspinous abscess s/p Thoracic wound debridement, evacuation paraspinous abscess by Dr Pickard neurosurgery on 01/02/17 01/03/17 Give additional 0.5 mg dilaudid as patient with pain and tachycardic CV: Sinus tachycardia 2-D echocardiogram 05/29 revealed EF 55-60%. No regional wall motion abnormality. Resp: Tobaccoism Nasal cannula to maintain saturations greater than or equal to 92% Incentive spirometry while awake As needed albuterol aerosols Chest x-ray 12/20 revealed no acute findings GI: Regular diet Pantoprazole 40 mg daily for GI prophylaxis Docusate sodium/senna 1 tablet twice daily for bowel regimen Microcytic anemia Check iron studies/ferritin. Patient with iron deficiency anemia. Start ferrous sulfate 325 mg by mouth twice a day. Peripheral smear Severe protein calorie malnutrition, low BMI of 17.6, muscle waiting. 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 Consult auto damage appraiser. Paravertebral abscess, chronic vertebral Osteomyelitis, recurring epidural abscess, M. Abscess MSSA With MSSA and Ancef is started 12/26/16 per ID recommendations and vancomycin/ cefepime was DCd Pathologic Fracture T5,T6 and 7, Discitis from T5-6 and 7, Prevertebral abscess from T4 through T10 9.5 cm craniocaudal status post drainage, Mycobacterium abscesses cultures. Large Epidural Phlegmon causing spinal stenosis, Status post CT guided drainage, ID specialist following recommended to continue Cefazoline for 12 weeks, and follow in antibiotic clinic. okay to Discharge from ID standpoint. PT evaluate and treat Severe Protein calorie malnutrition BMI of 78, low albumin of 1.7. He can repeat, muscle wasting. Bitemporal wasting. 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 Prophylaxis - GI - pantoprazole - DVT - SCD/holding pharmacological prophylaxis in light of possible surgical intervention at this time will place a new PICC line and once placed discharge to SNF. Discharge Planning Discharge to SNF after PICC line placement. Patrick Sheffield MD Jan 13, 2017 15:44
[2017-01-14] MEDS ORDERED: SODIUM CHLORIDE 0.9% FLUSH 10 ML FLUSH IVF SCH (09:00)
== END 2017-01-13 16:53 | DRG 862 ==
LOC: NEPE 06:10 → NEDA 06:56 → HIME 09:45 → N05B 12-24 18:01
PROVIDERS: ADMIT Internal Medicine; ATTEND Internal Medicine
PROC: 0J973ZX Drainage of Back Subcutaneous Tissue and Fascia, Percutaneous Approach, Diagnostic (ICD-10-PCS; principal; 2016-12-21)
PROC: 0HB6XZZ Excision of Back Skin, External Approach (ICD-10-PCS; 2017-01-02)
PROC: 0J973ZX Drainage of Back Subcutaneous Tissue and Fascia, Percutaneous Approach, Diagnostic (ICD-10-PCS; 2017-01-02)
PROC: 05H933Z Insertion of Infusion Device into Right Brachial Vein, Percutaneous Approach (ICD-10-PCS; 2017-01-13)
DX: T81.4XXA Infection following a procedure, initial encounter (principal); G06.1 Intraspinal abscess and granuloma; J85.2 Abscess of lung without pneumonia; E43 Unspecified severe protein-calorie malnutrition; N17.9 Acute kidney failure, unspecified; I13.0 Hypertensive heart and chronic kidney disease with heart failure and stage 1 through stage 4 chronic kidney disease, or unspecified chronic kidney disease; M46.24 Osteomyelitis of vertebra, thoracic region; I50.9 Heart failure, unspecified; E87.1 Hypo-osmolality and hyponatremia; M84.48XA Pathological fracture, other site, initial encounter for fracture; T81.30XA Disruption of wound, unspecified, initial encounter; L02.212 Cutaneous abscess of back [any part, except buttock and flank]; Z68.1 Body mass index [BMI] 19.9 or less, adult; G62.9 Polyneuropathy, unspecified; M46.44 Discitis, unspecified, thoracic region; M48.061 Spinal stenosis, lumbar region without neurogenic claudication; R00.0 Tachycardia, unspecified; B19.20 Unspecified viral hepatitis C without hepatic coma; N18.9 Chronic kidney disease, unspecified; J44.9 Chronic obstructive pulmonary disease, unspecified; K21.9 Gastro-esophageal reflux disease without esophagitis; R79.89 Other specified abnormal findings of blood chemistry; D50.9 Iron deficiency anemia, unspecified; G89.21 Chronic pain due to trauma; M25.559 Pain in unspecified hip; Z86.61 Personal history of infections of the central nervous system; Z86.19 Personal history of other infectious and parasitic diseases; F17.210 Nicotine dependence, cigarettes, uncomplicated; Z91.19 Patient's noncompliance with other medical treatment and regimen; B95.61 Methicillin susceptible Staphylococcus aureus infection as the cause of diseases classified elsewhere; F15.11 Other stimulant abuse, in remission; K59.00 Constipation, unspecified; Z91.5 Personal history of self-harm; Z59.0 Homelessness; F31.9 Bipolar disorder, unspecified; Z51.5 Encounter for palliative care; Z98.1 Arthrodesis status
CPT/HCPCS: 20615; 36569; 71010; 71260; 72157; 73502; 75989; 76937; 77001; 80048; 80053; 80202; 82140; 82150; 82550; 82728; 82948; 83540; 83550; 83605; 83690; 83735; 84100; 84443; 84484; 85007; 85025; 85027; 85060; 85384; 85610; 85652; 85730; 86403; 86703; 87015; 87040; 87070; 87102; 87116; 87147; 87185; 87186; 87205; 87206; 87641; 93005; 94150; 96374; 96375; 99152; 99153; J1170; A9579; C1751; C1769; C1887; C1894; J0690; J0692; J1100; J1580; J1642; J2250; J2270; J2370; J2405; J2710; J3010; J3370; J3480; J7030; J7040; J7050; J7120; Q9967